=== PATIENT | female | born 1930 ===

== ENCOUNTER 2017-10-06 23:28 | Inpatient (IN) | payer OTHER ==
[2017-10-07 00:35] VITALS: BMI 20.1
[2017-10-07] MEDS ORDERED: Sodium Chloride 0.9% 1,000 ML IV STA (00:35)
[2017-10-07] MEDS ORDERED: Albuterol-Ipratrop 3 mg / 0.5 (3 ml) UD INH STA (00:44)
--- NOTE | 2017-10-07 01:07 | ED PDOC ---
HPI: CCC, URI, Sore Throat Time Seen by Provider: 10/07/17 00:07 Chief Complaint (Provider): Cough, congestion, fever History Per: Patient, Family History/Exam Limitations: no limitations Onset/Duration Of Symptoms: Days (x 3) Current Symptoms Are (Timing): Still Present Sick Contacts (Context): Family Member(s) (daughter) Additional Complaint(s): 87 year old female with a history of DM, HTN and high cholesterol presents to the ED complaining of worsening cough, congestion and fevers. Family reports she has also been weak and not walking much. Her daughter is also sick. PMD: none provided Past Medical History Reviewed: Historical Data, Nursing Documentation, Vital Signs Vital Signs: Last Vital Signs Temp 98.7 F 10/07/17 03:00 Pulse 97 H 10/07/17 00:01 Resp 19 10/07/17 00:01 BP 138/60 10/07/17 00:01 Pulse Ox 97 10/07/17 00:01 - Medical History PMH: Diabetes, HTN, Hypercholesterolemia - Surgical History Surgical History: No Surg Hx - Family History Family History: States: Unknown Family Hx - Allergies Allergies/Adverse Reactions: Allergies Allergy/AdvReac Type Severity Reaction Status Date / Time No Known Allergies Allergy Verified 10/07/17 00:35 Review of Systems ROS Statement: Except As Marked, All Systems Reviewed And Found Negative Constitutional: Positive for: Fever ENT: Positive for: Nose Congestion Respiratory: Positive for: Cough Physical Exam - Reviewed Nursing Documentation Reviewed: Yes Vital Signs Reviewed: Yes - Physical Exam Appears: Positive for: No Acute Distress (ill appearing) Head Exam: Positive for: ATRAUMATIC, NORMOCEPHALIC Skin: Positive for: Normal Color, Warm (to touch), Dry Eye Exam: Positive for: EOMI, Normal appearance, PERRL Neck: Positive for: Normal, Painless ROM, Supple Cardiovascular/Chest: Positive for: Regular Rate, Rhythm. Negative for: Murmur Respiratory: Positive for: Rhonchi (diffuse; left is worse than right) Gastrointestinal/Abdominal: Positive for: Normal Exam, Soft Back: Positive for: Normal Inspection Extremity: Positive for: Normal ROM. Negative for: Deformity Neurologic/Psych: Positive for: Alert, Oriented. Negative for: Motor/Sensory Deficits - Laboratory Results Result Diagrams: 10/07/17 01:25 10/07/17 01:25 - ECG Pulse Ox Interpretation: Normal Medical Decision Making Medical Decision Making: Time: 00:35 Impression: flu vs PNA vs sepsis Initial Plan: --VBG --EKG --CMP --Magnesium --Phosphorus --CBC with differentials --PTT --Protrombin Time --Chest x-ray --Duoneb 3 ml INH --Tylenol 975 mg PO --Blood cx --Urine cx --Influenza AB --Urinalysis Patient will be admitted to inpatient care of Dr. Ramírez due to pneumonia, influenza and sepsis. Lactic acidsosis is clearing. Scribe Attestation: Documented by Lidia Green, acting as a scribe for Keegan Jacob MD. Provider Scribe Attestation: All medical record entries made by the Scribe were at my direction and personally dictated by me. I have reviewed the chart and agree that the record accurately reflects my personal performance of the history, physical exam, medical decision making, and the department course for this patient. I have also personally directed, reviewed, and agree with the discharge instructions and disposition. Disposition - Clinical Impression Clinical Impression: Influenza, Pneumonia, Sepsis - Patient ED Disposition Is Patient to be Admitted: Yes - Disposition Disposition Time: 02:12 Condition: SERIOUS Patient Signed Over To: Gunjan Ramírez - Pt Status Changed To: Hospital Disposition Of: Inpatient - Admit Certification Admit to Inpatient:: After my assessment, the patient will require hospitalization for at least two midnights. This is because of the severity of symptoms shown, intensity of services needed, and/or the medical risk in this patient being treated as an outpatient.
[2017-10-07 01:29] LABS: BASO % 0.2 % (0.0-2.0); HEMOGLOBIN 11.8 g/dL (12.0-16.0); LYMPH # 0.9 K/uL (1.0-4.3); LYMPH % 9.3 % (20.0-40.0); MEAN CELL VOLUME 94.2 fl (81.0-99.0); MEAN CORPUSCULAR HEMOGLOBIN 30.9 pg (27.0-31.0); MEAN CORPUSCULAR HGB CONC 32.9 g/dL (33.0-37.0); MEAN PLATELET VOLUME 10.3 fl (7.2-11.7); MONO # 0.6 K/uL (0.0-0.8); MONO % 5.7 % (0.0-10.0); NEUT # 8.3 K/uL (1.8-7.0); NEUT % 84.8 % (50.0-75.0); PLATELET COUNT 146 K/uL (130-400); RBC 3.83 Mil/uL (3.80-5.20); RED CELL DISTRIBUTION WIDTH 13.2 % (11.5-14.5); WHITE BLOOD COUNT 9.8 K/uL (4.8-10.8)
[2017-10-07] MEDS ORDERED: Albuterol-Ipratrop 3 mg / 0.5 (3 ml) UD ONE (01:29)
[2017-10-07 01:32] LABS: VENOUS BLOOD GAS BASE EXCESS -1.3 mmol/L (0.0-2.0); VENOUS BLOOD GAS PCO2 43 mmHg (40-60); VENOUS BLOOD GAS PO2 21 mm/Hg (30-55); VENOUS BLOOD PH 7.36 (7.32-7.43)
[2017-10-07 01:38] LABS: PROTHROMBIN TIME 16.1 Seconds (9.8-13.1)
[2017-10-07 01:39] LABS: ALB/GLOB RATIO 0.7 (1.0-2.1); ALBUMIN 3.3 g/dL (3.5-5.0); CALCIUM 8.7 mg/dL (8.4-10.2); INR 1.4 (0.9-1.2); MAGNESIUM 1.6 MG/DL (1.6-2.3); PARTIAL THROMBOPLASTIN TIME 30.3 Seconds (25.6-37.1)
[2017-10-07] MEDS ORDERED: cefTRIAXone 2 GM in Sodium Chloride 0.9% 100 ML IVPB STA (01:49)
[2017-10-07] MEDS ORDERED: Azithromycin 500 MG in Sodium Chloride 0.9% 250 ML IVPB STA (01:50)
[2017-10-07 03:10] LABS: BANDS 5 % (0-2); LYMPHOCYTE 11 % (20-50); MONOCYTE 3 % (0-10); NEUTROPHIL 81 % (42-75); TOTAL CELLS COUNTED 100
[2017-10-07 03:12] LABS: PLATELET ESTIMATE NORMAL (NORMAL)
[2017-10-07 03:13] LABS: ANISOCYTOSIS SLIGHT; HYPOCHROMIC SLIGHT
[2017-10-07 03:53] LABS: VENOUS BLOOD GAS BASE EXCESS -3.9 mmol/L (0.0-2.0); VENOUS BLOOD GAS PCO2 30 mmHg (40-60); VENOUS BLOOD GAS PO2 92 mm/Hg (30-55); VENOUS BLOOD PH 7.42 (7.32-7.43)
[2017-10-07 04:30] LABS: SQUAMOUS EPITHIAL 1 /hpf (0-5); URINE BACTERIA MANY (<OCC); URINE BILIRUBIN NEGATIVE (NEGATIVE); URINE BLOOD MODERATE (NEGATIVE); URINE CLARITY CLOUDY (Clear); URINE COLOR AMBER (YELLOW); URINE GLUCOSE (UA) NEG (Normal); URINE LEUKOCYTE ESTERASE NEG Leu/uL (Negative); URINE NITRATE NEGATIVE (NEGATIVE); URINE PROTEIN 30 mg/dL (NEGATIVE); URINE UROBILINOGEN 0.2-1.0 mg/dL (0.2-1.0)
[2017-10-07] MEDS: Sodium Chloride 0.9% 1,000 ML IV SCH (05:01)
[2017-10-07] MEDS: Sodium Chloride 0.45% 500ml 500 ML SOL IV SCH (07:37)
--- NOTE | 2017-10-07 09:02 | CARD ---
APPROVED REPORT EKG Measurement Heart [id number] <Conclusion> Normal sinus rhythm Moderate voltage criteria for LVH, may be normal variant Borderline ECG
--- NOTE | 2017-10-07 10:07 | RAD ---
HISTORY: Sepsis Patient COMPARISON: No prior. FINDINGS: LUNGS: Left mid/lower lung infiltrate. Increased prominence of the interstitial markings bilaterally with superimposed pulmonary vascular congestion. PLEURA: No significant pleural effusion identified, no pneumothorax apparent. CARDIOVASCULAR: Atherosclerotic aortic calcifications. Cardiomediastinal silhouette within normal limits. OSSEOUS STRUCTURES: Degenerative change. VISUALIZED UPPER ABDOMEN: Right upper quadrant surgical clips. OTHER FINDINGS: None. IMPRESSION: Left mid/lower lung infiltrate.
--- NOTE | 2017-10-07 12:12 | CP.PCM.HP ---
Past Patient History - Past Social History Smoking Status: Never Smoked - CARDIAC Hx Cardiac Disorders: Yes - ENDOCRINE/METABOLIC Hx Endocrine Disorders: Yes - PSYCHIATRIC Hx Substance Use: No Meds Allergies/Adverse Reactions: Allergies Allergy/AdvReac Type Severity Reaction Status Date / Time No Known Allergies Allergy Verified 10/07/17 00:35 Results - Vital Signs Recent Vital Signs: Last Vital Signs Temp 98.0 F 10/07/17 07:36 Pulse 75 10/07/17 07:36 Resp 18 10/07/17 07:36 BP 105/55 L 10/07/17 07:36 Pulse Ox 98 10/07/17 07:36 - Labs Result Diagrams: 10/07/17 01:25 10/07/17 01:25 Labs: Laboratory Results - last 24 hr 10/07/17 10/07/17 10/07/17 01:25 01:25 01:25 WBC 9.8 RBC 3.83 Hgb 11.8 L Hct 36.0 MCV 94.2 MCH 30.9 MCHC 32.9 L RDW 13.2 Plt Count 146 MPV 10.3 Neut % (Auto) 84.8 H Lymph % (Auto) 9.3 L [place] % (Auto) 5.7 Eos % (Auto) 0.0 Baso % (Auto) 0.2 Neut # (Auto) 8.3 H Lymph # (Auto) 0.9 L [place] # (Auto) 0.6 Eos # (Auto) 0.0 Baso # (Auto) 0.0 Neutrophils % (Manual) 81 H Band Neutrophils % 5 H Lymphocytes % (Manual) 11 L Monocytes % (Manual) 3 Platelet Estimate Normal Hypochromasia (manual) Slight Anisocytosis (manual) Slight PT 16.1 H INR 1.4 H APTT 30.3 pO2 VBG pH VBG pCO2 VBG HCO3 VBG Total CO2 VBG O2 Sat (Calc) VBG Base Excess VBG Potassium Glucose Lactate FiO2 Sodium 141 Potassium 4.0 Chloride 104 Carbon Dioxide 25 Anion Gap 16 BUN 37 H Creatinine 1.3 H Est GFR ( Amer) 47 Est GFR (Non-Af Amer) 39 POC Glucose (mg/dL) Random Glucose 116 H Calcium 8.7 Phosphorus 3.2 Magnesium 1.6 Total Bilirubin 0.6 AST 132 H ALT 51 Alkaline Phosphatase 135 H Total Protein 8.0 Albumin 3.3 L Globulin 4.7 H Albumin/Globulin Ratio 0.7 L Venous Blood Potassium Urine Color Urine Clarity Urine pH Ur Specific [place] Urine Protein Urine Glucose (UA) Urine Ketones Urine Blood Urine Nitrate Urine Bilirubin Urine Urobilinogen Ur Leukocyte Esterase Urine RBC (Auto) Urine Microscopic WBC Ur Squamous Epith Cells Urine Bacteria Urine Yeast (Budding) Influenza Typ A,B (EIA) 10/07/17 10/07/17 10/07/17 01:27 01:29 03:50 WBC RBC Hgb Hct MCV MCH MCHC RDW Plt Count MPV Neut % (Auto) Lymph % (Auto) [place] % (Auto) Eos % (Auto) Baso % (Auto) Neut # (Auto) Lymph # (Auto) [place] # (Auto) Eos # (Auto) Baso # (Auto) Neutrophils % (Manual) Band Neutrophils % Lymphocytes % (Manual) Monocytes % (Manual) Platelet Estimate Hypochromasia (manual) Anisocytosis (manual) PT INR APTT pO2 21 L 92 H VBG pH 7.36 7.42 VBG pCO2 43 30 L VBG HCO3 22.1 21.9 VBG Total CO2 25.6 20.4 L VBG O2 Sat (Calc) 36.1 L 99.0 H VBG Base Excess -1.3 L -3.9 L VBG Potassium 4.2 3.1 L Glucose 113 H 103 Lactate 2.5 H 1.1 FiO2 21.0 21.0 Sodium 140.0 135.0 Potassium Chloride 105.0 107.0 Carbon Dioxide Anion Gap BUN Creatinine Est GFR ( Amer) Est GFR (Non-Af Amer) POC Glucose (mg/dL) Random Glucose Calcium Phosphorus Magnesium Total Bilirubin AST ALT Alkaline Phosphatase Total Protein Albumin Globulin Albumin/Globulin Ratio Venous Blood Potassium 4.2 3.1 L Urine Color Urine Clarity Urine pH Ur Specific [place] Urine Protein Urine Glucose (UA) Urine Ketones Urine Blood Urine Nitrate Urine Bilirubin Urine Urobilinogen Ur Leukocyte Esterase Urine RBC (Auto) Urine Microscopic WBC Ur Squamous Epith Cells Urine Bacteria Urine Yeast (Budding) Influenza Typ A,B (EIA) Pos for influenza a H 10/07/17 10/07/17 04:00 07:30 WBC RBC Hgb Hct MCV MCH MCHC RDW Plt Count MPV Neut % (Auto) Lymph % (Auto) [place] % (Auto) Eos % (Auto) Baso % (Auto) Neut # (Auto) Lymph # (Auto) [place] # (Auto) Eos # (Auto) Baso # (Auto) Neutrophils % (Manual) Band Neutrophils % Lymphocytes % (Manual) Monocytes % (Manual) Platelet Estimate Hypochromasia (manual) Anisocytosis (manual) PT INR APTT pO2 VBG pH VBG pCO2 VBG HCO3 VBG Total CO2 VBG O2 Sat (Calc) VBG Base Excess VBG Potassium Glucose Lactate FiO2 Sodium Potassium Chloride Carbon Dioxide Anion Gap BUN Creatinine Est GFR ( Amer) Est GFR (Non-Af Amer) POC Glucose (mg/dL) 101 Random Glucose Calcium Phosphorus Magnesium Total Bilirubin AST ALT Alkaline Phosphatase Total Protein Albumin Globulin Albumin/Globulin Ratio Venous Blood Potassium Urine Color Justine Urine Clarity Cloudy Urine pH 5.0 Ur Specific [place] 1.015 Urine Protein 30 Urine Glucose (UA) Neg Urine Ketones Negative Urine Blood Moderate Urine Nitrate Negative Urine Bilirubin Negative Urine Urobilinogen 0.2-1.0 Ur Leukocyte Esterase Neg Urine RBC (Auto) 7 H Urine Microscopic WBC 7 H Ur Squamous Epith Cells 1 Urine Bacteria Many H Urine Yeast (Budding) Few H Influenza Typ A,B (EIA)
[2017-10-07] MEDS: Enoxaparin 40 mg Syringe SC SCH (14:00)
[2017-10-07] MEDS: Azithromycin 500 MG in Sodium Chloride 0.9% 250 ML IVPB SCH (15:15)
[2017-10-07] MEDS: Insulin Lispro (humaLOG) 100 Units/ml Inj SC SCH (22:58)
[2017-10-08] MEDS: Sodium Chloride 0.9% 1,000 ML IV SCH (04:56)
[2017-10-08] MEDS ORDERED: Influenza Vaccine 18yr & older 0.5 ML/45 MCG SYR IM ONE (06:00)
[2017-10-08] MEDS ORDERED: Pneumococcal 23-Valent Vaccine IM ONE (06:00)
[2017-10-08] MEDS: Levothyroxine 50 MCG TAB PO SCH (06:29)
[2017-10-08] MEDS: GlipiZIDE 2.5 mg SR Tab PO SCH (06:30)
[2017-10-08] MEDS: Insulin Lispro (humaLOG) 100 Units/ml Inj SC SCH ×4 (06:30→21:29)
[2017-10-08 07:43] LABS: HEMOGLOBIN 10.8 g/dL (12.0-16.0); MEAN CELL VOLUME 94.8 fl (81.0-99.0); MEAN CORPUSCULAR HEMOGLOBIN 31.2 pg (27.0-31.0); MEAN CORPUSCULAR HGB CONC 32.9 g/dL (33.0-37.0); RBC 3.46 Mil/uL (3.80-5.20); RED CELL DISTRIBUTION WIDTH 13.8 % (11.5-14.5)
[2017-10-08 07:51] LABS: ALB/GLOB RATIO 0.6 (1.0-2.1); ALBUMIN 2.6 g/dL (3.5-5.0); ALT/SGPT 54 U/L (9-52); AST/SGOT 126 U/L (14-36); BLOOD UREA NITROGEN 36 mg/dl (7-17); GFR AFRICAN-AMERICAN > 60; GFR NON-AFRICAN AMERICAN 52
[2017-10-08] MEDS: Enoxaparin 40 mg Syringe SC SCH (08:18)
[2017-10-08] MEDS: Albuterol-Ipratrop 3 mg / 0.5 (3 ml) UD INH PRN ×2 (09:50→22:48)
[2017-10-08] MEDS: Azithromycin 500 MG in Sodium Chloride 0.9% 250 ML IVPB SCH (09:54)
[2017-10-08] MEDS: Sodium Chloride 0.45% 500ml 500 ML SOL IV SCH (16:33)
[2017-10-08] MEDS ORDERED: cefTRIAXone 1,000 MG in PED IV SYRINGE 1 SYR IVPB SCH (18:00)
--- NOTE | 2017-10-08 18:01 | CP.PCM.CON ---
Past Patient History - Past Social History Smoking Status: Never Smoked - CARDIAC Hx Cardiac Disorders: Yes - PULMONARY Hx Pneumonia: Yes - ENDOCRINE/METABOLIC Hx Endocrine Disorders: Yes - MUSCULOSKELETAL/RHEUMATOLOGICAL Hx Falls: No - PSYCHIATRIC Hx Substance Use: No Meds Allergies/Adverse Reactions: Allergies Allergy/AdvReac Type Severity Reaction Status Date / Time No Known Allergies Allergy Verified 10/07/17 00:35 - Medications Medications: Current Medications Acetaminophen (Tylenol 325mg Tab) 975 mg PO ONCE PRN PRN Reason: Fever >100.4 F Last Admin: 10/07/17 01:33 Dose: 975 mg Albuterol/Ipratropium (Duoneb 3 Mg/0.5 Mg (3 Ml) Ud) 3 ml INH RQ4 PRN PRN Reason: Shortness of Breath Last Admin: 10/08/17 09:50 Dose: 3 ml Atorvastatin Calcium (Lipitor) 20 mg PO DAILY [facility] Last Admin: 10/08/17 08:18 Dose: 20 mg Enoxaparin Sodium (Lovenox) 40 mg SC DAILY [place] PRN Reason: Protocol Last Admin: 10/08/17 08:18 Dose: 40 mg Glipizide (Glucotrol Xl) 2.5 mg PO ACB [facility] Last Admin: 10/08/17 06:30 Dose: 2.5 mg Azithromycin 500 mg/ Sodium (Chloride) 250 mls @ 250 mls/hr IVPB DAILY [place] PRN Reason: Protocol Last Admin: 10/08/17 09:54 Dose: 250 mls/hr Insulin Human Lispro (Humalog) 0 units SC ACHS [place] PRN Reason: Protocol Last Admin: 10/08/17 16:29 Dose: Not Given Levothyroxine Sodium (Synthroid) 50 mcg PO DAILY@0630 [facility] Last Admin: 10/08/17 06:29 Dose: 50 mcg Oseltamivir Phosphate (Tamiflu Cap) 75 mg PO BID [place] PRN Reason: Protocol Stop: 10/11/17 09:00 Last Admin: 10/08/17 16:26 Dose: 75 mg Sodium Chloride (Sodium Chloride 0.45%) 80 ml IV DAILY [facility] Last Admin: 10/08/17 16:33 Dose: 80 ml Results - Vital Signs Recent Vital Signs: Last Vital Signs Temp 99.6 F 10/08/17 16:00 Pulse 80 10/08/17 16:00 Resp 17 10/08/17 16:00 BP 117/78 10/08/17 16:00 Pulse Ox 100 10/08/17 16:00 - Labs Result Diagrams: 10/08/17 07:20 10/08/17 07:20 Labs: Laboratory Results - last 24 hr 10/07/17 10/08/17 10/08/17 21:53 04:45 07:20 WBC 9.0 RBC 3.46 L Hgb 10.8 L Hct 32.9 L MCV 94.8 MCH 31.2 H MCHC 32.9 L RDW 13.8 Plt Count 101 L D Sodium Potassium Chloride Carbon Dioxide Anion Gap BUN Creatinine Est GFR ( Amer) Est GFR (Non-Af Amer) POC Glucose (mg/dL) 152 H 82 Random Glucose Calcium Total Bilirubin AST ALT Alkaline Phosphatase Total Protein Albumin Globulin Albumin/Globulin Ratio 10/08/17 10/08/17 10/08/17 07:20 11:09 16:29 WBC RBC Hgb Hct MCV MCH MCHC RDW Plt Count Sodium 136 Potassium 3.7 Chloride 106 Carbon Dioxide 20 L Anion Gap 14 BUN 36 H Creatinine 1.0 Est GFR ( Amer) > 60 Est GFR (Non-Af Amer) 52 POC Glucose (mg/dL) 104 74 Random Glucose 90 Calcium 8.0 L Total Bilirubin 0.5 AST 126 H ALT 54 H Alkaline Phosphatase 87 Total Protein 6.6 Albumin 2.6 L D Globulin 4.0 H Albumin/Globulin Ratio 0.6 L
--- NOTE | 2017-10-08 23:54 | CP.PCM.PN ---
Subjective - Date & Time of Evaluation Date of Evaluation: 10/08/17 Time of Evaluation: 15:00 Objective - Vital Signs/Intake and Output Vital Signs (last 24 hours): Temp Pulse Resp BP Pulse Ox 98.7 F 93 H 23 141/61 97 10/08/17 21:00 10/08/17 21:00 10/08/17 21:00 10/08/17 21:00 10/08/17 21:00 Intake and Output: 10/08/17 10/09/17 18:59 06:59 Intake Total 1396 290 Output Total 120 Balance 1276 290 - Medications Medications: Current Medications Acetaminophen (Tylenol 325mg Tab) 975 mg PO ONCE PRN PRN Reason: Fever >100.4 F Last Admin: 10/07/17 01:33 Dose: 975 mg Albuterol/Ipratropium (Duoneb 3 Mg/0.5 Mg (3 Ml) Ud) 3 ml INH RQ4 PRN PRN Reason: Shortness of Breath Last Admin: 10/08/17 22:48 Dose: 3 ml Atorvastatin Calcium (Lipitor) 20 mg PO DAILY [facility] Last Admin: 10/08/17 08:18 Dose: 20 mg Enoxaparin Sodium (Lovenox) 40 mg SC DAILY [facility] PRN Reason: Protocol Last Admin: 10/08/17 08:18 Dose: 40 mg Glipizide (Glucotrol Xl) 2.5 mg PO ACB [facility] Last Admin: 10/08/17 06:30 Dose: 2.5 mg Azithromycin 500 mg/ Sodium (Chloride) 250 mls @ 250 mls/hr IVPB DAILY [facility] PRN Reason: Protocol Last Admin: 10/08/17 09:54 Dose: 250 mls/hr Ceftriaxone Sodium 1 gm/ (Sodium Chloride) 50 mls @ 100 mls/hr IVPB Q12@0800, 2000 [facility] Last Admin: 10/08/17 20:37 Dose: 100 mls/hr Insulin Human Lispro (Humalog) 0 units SC ACHS [facility] PRN Reason: Protocol Last Admin: 10/08/17 21:29 Dose: Not Given Levothyroxine Sodium (Synthroid) 50 mcg PO DAILY@0630 [facility] Last Admin: 10/08/17 06:29 Dose: 50 mcg Oseltamivir Phosphate (Tamiflu Cap) 75 mg PO BID [facility] PRN Reason: Protocol Stop: 10/11/17 09:00 Last Admin: 10/08/17 16:26 Dose: 75 mg Sodium Chloride (Sodium Chloride 0.45%) 80 ml IV DAILY [place] Last Admin: 10/08/17 16:33 Dose: 80 ml - Labs Labs: 10/08/17 07:20 10/08/17 07:20 PT 16.1 Seconds (9.8-13.1) H 10/07/17 01:25 INR 1.4 (0.9-1.2) H 10/07/17 01:25 APTT 30.3 Seconds (25.6-37.1) 10/07/17 01:25
[2017-10-09] MEDS ORDERED: Sodium Chloride 0.45% 1,000 ML IV ONE (00:30)
[2017-10-09] MEDS: Levothyroxine 50 MCG TAB PO SCH (05:36)
[2017-10-09] MEDS: Insulin Lispro (humaLOG) 100 Units/ml Inj SC SCH ×4 (06:33→22:30)
[2017-10-09] MEDS: GlipiZIDE 2.5 mg SR Tab PO SCH (09:25)
[2017-10-09] MEDS: Enoxaparin 40 mg Syringe SC SCH (09:25)
[2017-10-09] MEDS: Azithromycin 500 MG in Sodium Chloride 0.9% 250 ML IVPB SCH (09:28)
[2017-10-09] MEDS: Albuterol-Ipratrop 3 mg / 0.5 (3 ml) UD INH PRN (09:56)
[2017-10-09] MEDS ORDERED: Albuterol-Ipratrop 3 mg / 0.5 (3 ml) UD INH SCH (12:08)
[2017-10-09] MEDS ORDERED: Dextrose 5%/0.45% NS 1,000 ML IV SCH (12:15)
--- NOTE | 2017-10-09 13:19 | RAD ---
HISTORY: f/u PNA, congestion COMPARISON: Chest radiograph dated 10/07/2017. FINDINGS: LUNGS: Worsening right upper lobe and left mid/lower lung consolidative process. Superimposed pulmonary vascular congestion. PLEURA: No significant pleural effusion identified, no pneumothorax apparent. CARDIOVASCULAR: Atherosclerotic aortic calcifications. Cardiomediastinal silhouette within normal limits. OSSEOUS STRUCTURES: Unchanged. VISUALIZED UPPER ABDOMEN: Normal. OTHER FINDINGS: None. IMPRESSION: Worsening right upper lobe and left mid/lower lung consolidative processes. Superimposed pulmonary vascular congestion.
[2017-10-09] MEDS ORDERED: Sodium Chloride 3% for Inhalation 4 ML VIAL.NEB IH PRN (16:11)
[2017-10-09] MEDS: Albuterol-Ipratrop 3 mg / 0.5 (3 ml) UD INH SCH (19:24)
[2017-10-09] MEDS ORDERED: cefTRIAXone IV 1 gm in Dextros 50 ML IVPB SCH (20:00)
[2017-10-09] MEDS: Cefepime 2 GM in Sodium Chloride 0.9% 100 ML IVPB SCH (20:12)
[2017-10-10] MEDS: Albuterol-Ipratrop 3 mg / 0.5 (3 ml) UD INH SCH ×4 (01:14→19:56)
[2017-10-10] MEDS: Levothyroxine 50 MCG TAB PO SCH (06:53)
[2017-10-10] MEDS: Insulin Lispro (humaLOG) 100 Units/ml Inj SC SCH ×4 (06:56→21:21)
[2017-10-10 09:25] LABS: HEMOGLOBIN 9.5 g/dL (12.0-16.0); MEAN CELL VOLUME 94.2 fl (81.0-99.0); MEAN CORPUSCULAR HEMOGLOBIN 30.5 pg (27.0-31.0); MEAN CORPUSCULAR HGB CONC 32.3 g/dL (33.0-37.0); RBC 3.13 Mil/uL (3.80-5.20); RED CELL DISTRIBUTION WIDTH 13.3 % (11.5-14.5); WHITE BLOOD COUNT 12.2 K/uL (4.8-10.8)
[2017-10-10 10:18] LABS: ALB/GLOB RATIO 0.6 (1.0-2.1); ALBUMIN 2.5 g/dL (3.5-5.0); ALT/SGPT 97 U/L (9-52); AST/SGOT 193 U/L (14-36); BLOOD UREA NITROGEN 21 mg/dl (7-17); CALCIUM 8.1 mg/dL (8.4-10.2); GFR AFRICAN-AMERICAN > 60; GFR NON-AFRICAN AMERICAN 59
[2017-10-10] MEDS: Azithromycin 500 MG in Sodium Chloride 0.9% 250 ML IVPB SCH (10:36)
[2017-10-10] MEDS: GlipiZIDE 2.5 mg SR Tab PO SCH (10:36)
[2017-10-10] MEDS: Cefepime 2 GM in Sodium Chloride 0.9% 100 ML IVPB SCH (10:37)
[2017-10-10] MEDS: Enoxaparin 40 mg Syringe SC SCH (10:38)
[2017-10-10] MEDS ORDERED: Potassium Chloride 20 mEq/15 ml LIQ UD PO STA (12:04)
--- NOTE | 2017-10-10 13:56 | CP.PCM.CON ---
History of Present Illness - History of Present Illness History of Present Illness: 87 year old female with a history of DM, HTN and high cholesterol presents to the ED complaining of worsening cough, congestion and fevers. Family reports she has also been weak and not walking much. Her daughter is also sick. found to have worsening pneumonia, UTI and Influenza a IV antibiotics in progress - Medical History PMH: Diabetes, HTN, Hypercholesterolemia - Surgical History Surgical History: No Surg Hx - Family History Family History: States: Unknown Family Hx Review of Systems - Review of Systems All systems: reviewed and no additional remarkable complaints except - Constitutional Constitutional: As Per HPI, Anorexia, Chills, Fever - EENT Eyes: absent: As Per HPI, Blind Spots, Blurred Vision, Change in Vision, Decreased Night Vision, Diplopia, Discharge, Dry Eye, Exophthalmos, Floaters, Irritation, Itchy Eyes, Loss of Peripheral Vision, Pain, Photophobia, Requires Corrective Lenses, Sees Flashes, Spots in Vision, Tunnel Vision, Other Visual Disturbances, Loss of Vision, Other Ears: absent: As Per HPI, Decreased Hearing, Ear Discharge, Ear Pain, Tinnitus, Abnormal Hearing, Disequilibrium, Dizziness, Other Nose/Mouth/Throat: absent: As Per HPI, Epistaxis, Nasal Congestion, Nasal Discharge, Nasal Obstruction, Nasal Trauma, Nose Pain, Post Nasal Drip, Sinus Pain, Sinus Pressure, Bleeding Gums, Change in Voice, Dental Pain, Dry Mouth, Dysphagia, Halitosis, Hoarsness, Lip Swelling, Mouth Lesions, Mouth Pain, Odynophagia, Sore Throat, Throat Swelling, Tongue Swelling, Facial Pain, Neck Pain, Neck Mass, Other - Breasts Breasts: absent: As Per HPI, Change in Shape, Mass, Pain, Nipple Discharge, Nipple Inversion, Skin Changes, Swelling, Other - Cardiovascular Cardiovascular: As Per HPI - Respiratory Respiratory: As Per HPI, Cough, Dyspnea. absent: Hemoptysis - Gastrointestinal Gastrointestinal: absent: As Per HPI, Abdominal Pain, Belching, Bloating, Change in Bowel Habits, Change in Stool Character, Coffee Ground Emesis, Constipation, Cramping, Diarrhea, Dyspepsia, Dysphagia, Early Satiety, Excessive Flatus, Fecal Incontinence, Heartburn, Hematemesis, Hematochezia, Loose Stools, Melena, Nausea, Odynophagia, Temesmus, Vomiting, Other - Genitourinary Genitourinary: absent: As Per HPI, Change in Urinary Stream, Difficulty Urinating, Dysuria, Flank Pain, Hematuria, Pyuria, Nocturia, Urinary Incontinence, Urinary Frequency, Urinary Hesitance, Urinary Urgency, Voiding Freq/Small Amts, Freq UTI, Hx Renal/Bladder Calculi, Hx /Renal Surgery, Bladder Distension, Other - Reproductive: Female Reproductive:Female: absent: As Per HPI, Amenorrhea, Amenorrhea/ Control, Currently Menstual, Cycle <21 Days, Cycle >35 Days, Cycle Variable, Menses 1-7 Days, Menses >/= 8 Days, Menses Variable, Cycle > 4 Weeks Between, No Menses for 6 Months, Heavy Menses, Light Menses, Normal Menses, Spotting Between Cycles , S/P Hysterectomy, Menopausal, Post Menopausal, Premenarche, Abnormal Vaginal Bleeding, Dysmenorrhea, Dyspareunia, Genital Lesions, Genital Pruritis, Pelvic Pain, Prolapse Symptoms, Sexual Dysfunction, Vaginal Discharge, Vaginal Dryness , Vaginal Odor, Vaginal Pruritis, Other - Menstruation Menstruation: absent: As Per HPI, Amenorrhea, Amenorrhea/ Control, Currently Menstual, Cycle <21 Days, Cycle >35 Days, Cycle Variable, Menses 1-7 Days, Menses >/= 8 Days, Menses Variable, Cycle > 4 Weeks Between, No Menses for 6 Months, Heavy Menses, Light Menses, Normal Menses, Spotting Between Cycles , S/P Hysterectomy, Menopausal, Post Menopausal, Premenarche, Abnormal Vaginal Bleeding, Dysmenorrhea, Other - Musculoskeletal Musculoskeletal: As Per HPI - Integumentary Integumentary: absent: As Per HPI, Acne, Alopecia, Bleeding Lesions, Change in Hair, Change in Nails, Change in Pigmentation, Changing Lesions, Dry Skin, Erythema, Furuncle, Hirsutism, Lesions, New Lesions, Non-Healing Lesions, Photosensitivity, Pruritus, Rash, Skin Pain, Skin Ulcer, Sores, Striae, Swelling , Unusual Bruising, Wounds, Jaundice, Other - Neurological Neurological: absent: As Per HPI, Abnormal Gait, Abnormal Hearing, Abnormal Movements, Abnormal Speech, Behavioral Changes, Burning Sensations, Confusion, Convulsions, Disequilibrium, Dizziness, Numbness, Focal Weakness, Frequent Falls , Headaches, Lack of Coordination, Loss of Vision, Memory Loss, Paresthesias, Radicular Pain, Restless Legs, Sensory Deficit, Syncope, Tingling, Tremor, Vertigo, Weakness, Other Visual Disturbances, Other - Psychiatric Psychiatric: absent: As Per HPI, Abnormal Sleep Pattern, Anhedonia, Anxiety, Auditory Hallucinations, Behavioral Changes, Change in Appetite, Change in Libido, Confusion, Depression, Difficulty Concentrating, Hallucinations, Homicidal Ideation, Hopelessness, Irritability, Memory Loss, Mood Swings, Panic Attacks, Paranoia, Suicidal Ideation, Visual Hallucinations, Tactile Hallucinations, Other - Endocrine Endocrine: absent: As Per HPI, Change in Body Appearance, Change in Libido, Cold Intolorance, Deepening of Voice, Excessive Sweating, Fatigue, Flushing, Heat Intolorance, Increase in Ring/Shoe/Hat Size, Palpitations, Polydipsia, Polyphagia, Polyuria, Other - Hematologic/Lymphatic Hematologic: absent: As Per HPI, Easy Bleeding, Easy Bruising, Lymphadenopathy, Other Past Patient History - Past Social History Smoking Status: Never Smoked - CARDIAC Hx Cardiac Disorders: Yes - PULMONARY Hx Pneumonia: Yes - ENDOCRINE/METABOLIC Hx Endocrine Disorders: Yes - MUSCULOSKELETAL/RHEUMATOLOGICAL Hx Falls: No - PSYCHIATRIC Hx Substance Use: No Meds Allergies/Adverse Reactions: Allergies Allergy/AdvReac Type Severity Reaction Status Date / Time No Known Allergies Allergy Verified 10/07/17 00:35 - Medications Medications: Current Medications Acetaminophen (Tylenol 325mg Tab) 975 mg PO ONCE PRN PRN Reason: Fever >100.4 F Last Admin: 10/07/17 01:33 Dose: 975 mg Albuterol/Ipratropium (Duoneb 3 Mg/0.5 Mg (3 Ml) Ud) 3 ml INH RQ6 [facility] Last Admin: 10/10/17 07:20 Dose: 3 ml Amlodipine Besylate (Norvasc) 5 mg PO DAILY [facility] Atorvastatin Calcium (Lipitor) 20 mg PO DAILY [facility] Last Admin: 10/10/17 10:38 Dose: 20 mg Glipizide (Glucotrol Xl) 2.5 mg PO ACB [facility] Last Admin: 10/10/17 10:36 Dose: 2.5 mg Azithromycin 500 mg/ Sodium (Chloride) 250 mls @ 250 mls/hr IVPB DAILY [facility] PRN Reason: Protocol Last Admin: 10/10/17 10:36 Dose: 250 mls/hr Dextrose (Dextrose 10% In Water) 1,000 mls @ 20 mls/hr IV .Q24H [facility] Stop: 10/10/17 15:25 Last Admin: 10/09/17 16:18 Dose: 20 mls/hr Cefepime HCl 2 gm/ Sodium (Chloride) 100 mls @ 100 mls/hr IVPB Q12 [facility] PRN Reason: Protocol Last Admin: 10/10/17 10:37 Dose: 100 mls/hr Insulin Human Lispro (Humalog) 0 units SC ACHS [place] PRN Reason: Protocol Last Admin: 10/10/17 12:31 Dose: 1 unit Levothyroxine Sodium (Synthroid) 50 mcg PO DAILY@0630 [facility] Last Admin: 10/10/17 06:53 Dose: 50 mcg Oseltamivir Phosphate (Tamiflu Cap) 75 mg PO BID [facility] PRN Reason: Protocol Stop: 10/11/17 09:00 Last Admin: 10/10/17 10:36 Dose: 75 mg Physical Exam - Constitutional Appears: Non-toxic, Chronically Ill - Head Exam Head Exam: NORMOCEPHALIC - Eye Exam Eye Exam: PERRL. absent: Scleral icterus - ENT Exam ENT Exam: Mucous Membranes Dry, Normal External Ear Exam - Neck Exam Neck exam: Negative for: Lymphadenopathy - Respiratory Exam Respiratory Exam: Decreased Breath Sounds, Rhonchi - Cardiovascular Exam Cardiovascular Exam: REGULAR RHYTHM, +S1, +S2 - GI/Abdominal Exam GI & Abdominal Exam: Diminished Bowel Sounds, Soft. absent: Tenderness - Rectal Exam Rectal Exam: Deferred - Exam Exam: NORMAL INSPECTION - Extremities Exam Extremities exam: Negative for: pedal edema - Back Exam Back exam: absent: CVA tenderness (L), CVA tenderness (R), paraspinal tenderness - Neurological Exam Neurological exam: Alert, CN II-XII Intact, Oriented x3, Reflexes Normal - Psychiatric Exam Psychiatric exam: Depressed - Skin Skin Exam: Dry, Intact Results - Vital Signs Recent Vital Signs: Last Vital Signs Temp 98.9 F 10/10/17 12:00 Pulse 102 H 10/10/17 12:00 Resp 39 H 10/10/17 12:00 BP 178/59 H 10/10/17 12:00 Pulse Ox 91 L 10/10/17 12:00 - Labs Result Diagrams: 10/10/17 08:40 10/10/17 08:40 Labs: Laboratory Results - last 24 hr 10/09/17 10/09/17 10/09/17 11:18 15:55 21:52 WBC RBC Hgb Hct MCV MCH MCHC RDW Plt Count Sodium Potassium Chloride Carbon Dioxide Anion Gap BUN Creatinine Est GFR ( Amer) Est GFR (Non-Af Amer) POC Glucose (mg/dL) 173 H 161 H 163 H Random Glucose Calcium Total Bilirubin AST ALT Alkaline Phosphatase Total Protein Albumin Globulin Albumin/Globulin Ratio 10/10/17 10/10/17 10/10/17 05:56 08:40 08:40 WBC 12.2 H RBC 3.13 L Hgb 9.5 L Hct 29.5 L MCV 94.2 MCH 30.5 MCHC 32.3 L RDW 13.3 Plt Count 121 L D Sodium 138 Potassium 3.5 L Chloride 105 Carbon Dioxide 25 Anion Gap 12 BUN 21 H Creatinine 0.9 Est GFR ( Amer) > 60 Est GFR (Non-Af Amer) 59 POC Glucose (mg/dL) 133 H Random Glucose 147 H Calcium 8.1 L Total Bilirubin 0.9 AST 193 H D ALT 97 H D Alkaline Phosphatase 141 H D Total Protein 6.4 Albumin 2.5 L Globulin 3.9 Albumin/Globulin Ratio 0.6 L 10/10/17 11:36 WBC RBC Hgb Hct MCV MCH MCHC RDW Plt Count Sodium Potassium Chloride Carbon Dioxide Anion Gap BUN Creatinine Est GFR ( Amer) Est GFR (Non-Af Amer) POC Glucose (mg/dL) 176 H Random Glucose Calcium Total Bilirubin AST ALT Alkaline Phosphatase Total Protein Albumin Globulin Albumin/Globulin Ratio Assessment & Plan (1) Influenza Status: Acute (2) Pneumonia Status: Acute (3) Sepsis Status: Acute (4) UTI (urinary tract infection) Status: Acute - Assessment and Plan (Free Text) Assessment: cont iv antibiotics supportive care
[2017-10-10] MEDS: Cefepime 1 GM in Sodium Chloride 0.9% 100 ML IVPB SCH (17:03)
[2017-10-10] MEDS ORDERED: Enalaprilat 2.5 MG/2 ML IVP ONE (23:31)
[2017-10-11] MEDS: Cefepime 1 GM in Sodium Chloride 0.9% 100 ML IVPB SCH ×3 (00:08→17:25)
[2017-10-11] MEDS: Albuterol-Ipratrop 3 mg / 0.5 (3 ml) UD INH SCH (01:17)
[2017-10-11 02:10] LABS: BASO % 0.1 % (0.0-2.0); EOS % 0.1 % (0.0-4.0); HEMOGLOBIN 9.9 g/dL (12.0-16.0); LYMPH # 0.7 K/uL (1.0-4.3); LYMPH % 4.8 % (20.0-40.0); MEAN CELL VOLUME 93.5 fl (81.0-99.0); MEAN CORPUSCULAR HEMOGLOBIN 30.3 pg (27.0-31.0); MEAN CORPUSCULAR HGB CONC 32.4 g/dL (33.0-37.0); MEAN PLATELET VOLUME 9.2 fl (7.2-11.7); MONO # 1.7 K/uL (0.0-0.8); NEUT # 11.7 K/uL (1.8-7.0); NRBC % 1.2 % (0.0-0.0); PLATELET COUNT 145 K/uL (130-400); RBC 3.29 Mil/uL (3.80-5.20); RED CELL DISTRIBUTION WIDTH 13.6 % (11.5-14.5); WHITE BLOOD COUNT 14.1 K/uL (4.8-10.8)
[2017-10-11 02:21] LABS: ALB/GLOB RATIO 0.6 (1.0-2.1); ALBUMIN 2.5 g/dL (3.5-5.0); ALT/SGPT 81 U/L (9-52); AST/SGOT 129 U/L (14-36); BLOOD UREA NITROGEN 17 mg/dl (7-17); CALCIUM 8.1 mg/dL (8.4-10.2); GFR AFRICAN-AMERICAN > 60; GFR NON-AFRICAN AMERICAN > 60
[2017-10-11 02:41] LABS: B-TYPE NATRIURETIC PEPTIDE 10900 pg/ml (0-900)
[2017-10-11] MEDS: Levalbuterol 0.63 MG/3 ML Inhal Soln UD INH SCH ×4 (04:42→23:58)
[2017-10-11] MEDS: Ipratropium 0.02% Inhal Soln (0.5 mg/2.5 ml) UD IH SCH ×6 (04:42→23:57)
[2017-10-11 04:49] LABS: LYMPHOCYTE 7 % (20-50); NEUTROPHIL 83 % (42-75); TOTAL CELLS COUNTED 100
[2017-10-11 04:50] LABS: MONOCYTE 10 % (0-10); PLATELET ESTIMATE NORMAL (NORMAL)
[2017-10-11] MEDS: Levothyroxine 50 MCG TAB PO SCH (06:25)
[2017-10-11] MEDS: Insulin Lispro (humaLOG) 100 Units/ml Inj SC SCH ×4 (06:30→22:45)
[2017-10-11] MEDS: Azithromycin 500 MG in Sodium Chloride 0.9% 250 ML IVPB SCH (08:55)
--- NOTE | 2017-10-11 10:37 | CP.PCM.PN ---
Subjective - Date & Time of Evaluation Date of Evaluation: 10/11/17 Time of Evaluation: 07:00 - Subjective Subjective: aeen on rounds full consult to follow Objective - Vital Signs/Intake and Output Vital Signs (last 24 hours): Temp Pulse Resp BP Pulse Ox 97.4 F L 91 H 20 165/69 H 95 10/11/17 08:00 10/11/17 08:00 10/11/17 08:00 10/11/17 08:00 10/11/17 08:00 - Medications Medications: Current Medications Acetaminophen (Tylenol 325mg Tab) 975 mg PO ONCE PRN PRN Reason: Fever >100.4 F Last Admin: 10/07/17 01:33 Dose: 975 mg Aspirin (Aspirin) 325 mg PO DAILY [facility] Last Admin: 10/11/17 03:09 Dose: 325 mg Atorvastatin Calcium (Lipitor) 20 mg PO DAILY [facility] Last Admin: 10/11/17 08:54 Dose: 20 mg Glipizide (Glucotrol Xl) 2.5 mg PO ACB [facility] Last Admin: 10/10/17 10:36 Dose: 2.5 mg Azithromycin 500 mg/ Sodium (Chloride) 250 mls @ 250 mls/hr IVPB DAILY [facility] PRN Reason: Protocol Last Admin: 10/11/17 08:55 Dose: 250 mls/hr Cefepime HCl 1 gm/ Sodium (Chloride) 100 mls @ 100 mls/hr IVPB Q8 [facility] PRN Reason: Protocol Last Admin: 10/11/17 08:54 Dose: 100 mls/hr Dextrose (Dextrose 10% In Water) 1,000 mls @ 20 mls/hr IV .Q24H [facility] Stop: 10/11/17 15:45 Last Admin: 10/10/17 07:00 Dose: 20 mls/hr Insulin Human Lispro (Humalog) 0 units SC ACHS [place] PRN Reason: Protocol Last Admin: 10/11/17 06:30 Dose: 1 unit Ipratropium [place] (Atrovent) 0.5 mg IH RQ4 [facility] Last Admin: 10/11/17 07:43 Dose: 0.5 mg Levalbuterol HCl (Xopenex) 0.63 mg INH RQ8 [facility] Last Admin: 10/11/17 07:43 Dose: 0.63 mg Levothyroxine Sodium (Synthroid) 50 mcg PO DAILY@0630 [facility] Last Admin: 10/11/17 06:25 Dose: 50 mcg Metoprolol Tartrate (Lopressor) 25 mg PO Q12 [facility] Last Admin: 10/11/17 03:09 Dose: 25 mg - Labs Labs: 10/11/17 02:05 10/11/17 02:05 PT 16.1 Seconds (9.8-13.1) H 10/07/17 01:25 INR 1.4 (0.9-1.2) H 10/07/17 01:25 APTT 30.3 Seconds (25.6-37.1) 10/07/17 01:25 - Constitutional Appears: Cachectic, Chronically Ill - Head Exam Head Exam: ATRAUMATIC, NORMAL INSPECTION, NORMOCEPHALIC - Eye Exam Eye Exam: EOMI, Normal appearance, PERRL Pupil Exam: NORMAL ACCOMODATION, PERRL - ENT Exam ENT Exam: Mucous Membranes Moist, Normal Exam - Neck Exam Neck Exam: Full ROM, Normal Inspection. absent: Lymphadenopathy - Respiratory Exam Respiratory Exam: Rhonchi - Cardiovascular Exam Cardiovascular Exam: REGULAR RHYTHM, +S1, +S2. absent: Murmur - GI/Abdominal Exam GI & Abdominal Exam: Soft, Normal Bowel Sounds. absent: Tenderness - Rectal Exam Rectal Exam: NORMAL INSPECTION - Exam Exam: Circumcision, NORMAL INSPECTION External exam: NORMAL EXTERNAL EXAM Speculum exam: NORMAL SPECULUM EXAM Bimanual exam: NORMAL BIMANUAL EXAM - Extremities Exam Extremities Exam: Full ROM, Normal Capillary Refill, Normal Inspection. absent : Joint Swelling, Pedal Edema - Back Exam Back Exam: NORMAL INSPECTION - Neurological Exam Neurological Exam: Alert, Awake, CN II-XII Intact, Normal Gait, Oriented x3 - Psychiatric Exam Psychiatric exam: Normal Affect, Normal Mood - Skin Skin Exam: Dry, Intact, Normal Color, Warm Assessment and Plan (1) Influenza Status: Acute (2) Pneumonia Status: Acute (3) Sepsis Status: Acute (4) UTI (urinary tract infection) Status: Acute
[2017-10-11] MEDS: GlipiZIDE 2.5 mg SR Tab PO SCH (11:29)
[2017-10-11] MEDS ORDERED: Enoxaparin 30 mg Syringe SC SCH (11:30)
--- NOTE | 2017-10-11 12:19 | CARD ---
APPROVED REPORT EKG Measurement Heart [id number] <Conclusion> Normal sinus rhythm Normal ECG
--- NOTE | 2017-10-11 12:29 | CON ---
DATE: CARDIOLOGY CONSULTATION HISTORY OF PRESENT ILLNESS: The patient is an 87-year-old female who has a history of hypertension, diabetes mellitus and hyperlipidemia, presented because of shortness of breath, productive cough and fever. Cardiac enzymes were borderline and elevated. The patient's x-ray was consistent with significant bilateral alveolar pneumonia. SOCIAL HISTORY: Nonsmoker. MEDICATIONS: IV Zithromax at 500 mg daily, IV cefepime at 1 gram q.8 hours, glipizide 2.5 mg daily, Lipitor 20 mg once daily, Lopressor 25 mg twice a day, Synthroid 50 mcg daily, and Xopenex inhaler q.8 hours. REVIEW OF SYSTEMS: No reported hypotension. No reported ventricular tachycardia. PAST MEDICAL HISTORY: History of hypertension, diabetes mellitus, and hyperlipidemia. PHYSICAL EXAMINATION: GENERAL: The patient is an elderly female who is currently tachypneic. VITAL SIGNS: Blood pressure of 165/69, heart rate of 91, temperature of 97.4, and respirations of 20. HEENT: Pale conjunctivae. CHEST: Bilateral coarse crepitations and expiratory wheezing. HEART: S1 and S2, regular. ABDOMEN: Soft. EXTREMITIES: No edema. LABORATORY DATA: Hemoglobin and hematocrit of 9.9 and 38.7. white count of 14.1 and platelet count of 145,000. SMA-7: Sodium of 138, , chloride of 109, CO2 of 23, glucose of 163, BUN of 17 and creatinine of 0.8. Troponin of 0.122 and 0.133. DIAGNOSTIC DATA: EKG revealed normal sinus rhythm. Chest x-ray revealed normal cardiac silhouette, bilateral alveolar infiltrate involving both lung aguirre with near complete opacification with right upper lobe. ASSESSMENT: 1. Bilateral pneumonia. 2. Borderline troponin elevation. 3. Mild anemia. 4. Positive serology for influenza. RECOMMENDATIONS: Continue current IV Zithromax and IV Rocephin. Continue aspirin 325 mg once a day, Lopressor 25 mg once a day, Lipitor 20 mg once a day, Synthroid 50 mcg once daily, and subcutaneous Lovenox 30 mg daily. Obtain chest CT scan without contrast. The patient is not suitable candidate for invasive cardiac workup until for resolution of overwhelming pneumonia. Mitchell Hollis MD [facility] # [id number]
--- NOTE | 2017-10-11 14:07 | RAD ---
PROCEDURE: CHEST RADIOGRAPH, 1 VIEW HISTORY: Pneumonia COMPARISON: 11/06/2017. FINDINGS: LUNGS: Persistent multifocal infiltrates primarily affecting right upper lobe, left lower lobe and to lesser extent right lower lobe. PLEURA: No pneumothorax or pleural fluid seen. CARDIOVASCULAR: Normal. OSSEOUS STRUCTURES: No significant abnormalities. VISUALIZED UPPER ABDOMEN: Normal. OTHER FINDINGS: None. IMPRESSION: Stable multifocal pulmonary infiltrates.
[2017-10-11] MEDS ORDERED: Linezolid 600 mg in D5W 300 ml 600 MG/300 ML BAG IVPB SCH (15:05)
[2017-10-11 15:23] LABS: ABG ALLEN TEST YES; ARTERIAL BLOOD GAS HCO3 23.6 mmol/L (21-28); ARTERIAL BLOOD GAS HEMOGLOBIN 10.3 g/dL (11.7-17.4); ARTERIAL BLOOD GAS O2 CAPACITY 14.3 mL/dL (16-24); ARTERIAL BLOOD GAS O2 CONTENT 13.3 ML/dL (15-23); ARTERIAL BLOOD GAS O2 SAT 92.9 % (95-98); ARTERIAL BLOOD GAS PCO2 45 mm/Hg (35-45); ARTERIAL BLOOD GAS PH 7.34 (7.35-7.45); ARTERIAL BLOOD GAS PO2 62 mm/Hg (80-100); ARTERIAL BLOOD GAS TCO2 25.7 mmol/L (22-28)
--- NOTE | 2017-10-11 15:33 | CP.PCM.CON ---
History of Present Illness - History of Present Illness History of Present Illness: Pulmonary consult for a 87 y/o F, brought to [facility], [place] after been sustaining dry intermittent cough associated to chest congestion, fever x 2 days [employer] with no relief. Worsening symptoms: JARQUIN, TMAx 102.2 while in the ER, poor appetite, weakness. Also possible sick contact from daughter with Flu like symptoms. Aggravated factor: Poor historian 2nd to clinical condition. No: CP, v/v/d, abdominal pain, LOC, syncope, numbness, bloody cough. CXR: Worsening RUL and L middle lobe consolidative process. EKG: Normal sinus rhythm. CT Chest showed: Extensive b/l alveolar PNA. Influenza A (+) Patient completed Tamiflu Rx Review of Systems - Constitutional Constitutional: Frequent Falls, Weakness, Other (decreased appetite) - EENT Eyes: Other (negative) Nose/Mouth/Throat: Other (negative) - Cardiovascular Cardiovascular: Rapid Heart Rate - Respiratory Respiratory: Cough, Dyspnea, Wheezing, Chest Congestion - Gastrointestinal Gastrointestinal: Other (negative) - Musculoskeletal Musculoskeletal: Arthralgias - Integumentary Integumentary: Other (negative) - Neurological Neurological: Confusion, Other (negative) - Psychiatric Psychiatric: Anxiety - Endocrine Endocrine: Other (negative) - Hematologic/Lymphatic Hematologic: Other (negative) Past Patient History - Past Medical History & Family History Pertinent Family History: Unknown - Past Social History Smoking Status: Never Smoked Alcohol: None Drugs: Denies Home Situation {Lives}: With Family - CARDIAC Hx Cardiac Disorders: Yes Hx Hypercholesterolemia: Yes Hx Hypertension: Yes - PULMONARY Hx Respiratory Disorders: Yes Hx Pneumonia: Yes - NEUROLOGICAL Hx Neurological Disorder: No - HEENT Hx HEENT Problems: No - RENAL Hx Chronic Kidney Disease: No - ENDOCRINE/METABOLIC Hx Endocrine Disorders: Yes Hx Diabetes Mellitus Type 2: Yes Hx Hypothyroidism: Yes - HEMATOLOGICAL/ONCOLOGICAL Hx Blood Disorders: No - INTEGUMENTARY Hx Dermatological Problems: No - MUSCULOSKELETAL/RHEUMATOLOGICAL Hx Musculoskeletal Disorders: Yes Hx Falls: Yes - GASTROINTESTINAL Hx Gastrointestinal Disorders: No - GENITOURINARY/GYNECOLOGICAL Hx Genitourinary Disorders: No - PSYCHIATRIC Hx Psychophysiologic Disorder: Yes Hx Anxiety: Yes Hx Substance Use: No Meds Allergies/Adverse Reactions: Allergies Allergy/AdvReac Type Severity Reaction Status Date / Time No Known Allergies Allergy Verified 10/07/17 00:35 - Medications Medications: Current Medications Acetaminophen (Tylenol 325mg Tab) 975 mg PO ONCE PRN PRN Reason: Fever >100.4 F Last Admin: 10/07/17 01:33 Dose: 975 mg Aspirin (Aspirin) 325 mg PO DAILY [facility] Last Admin: 10/11/17 03:09 Dose: 325 mg Atorvastatin Calcium (Lipitor) 20 mg PO DAILY [facility] Last Admin: 10/11/17 08:54 Dose: 20 mg Enoxaparin Sodium (Lovenox) 30 mg SC DAILY [place] PRN Reason: Protocol Last Admin: 10/11/17 12:45 Dose: 30 mg Glipizide (Glucotrol Xl) 2.5 mg PO ACB [facility] Last Admin: 10/11/17 11:29 Dose: 2.5 mg Haloperidol Lactate (Haldol) 1 mg IVP Q6 PRN PRN Reason: Agitation Last Admin: 10/11/17 13:17 Dose: 1 mg Azithromycin 500 mg/ Sodium (Chloride) 250 mls @ 250 mls/hr IVPB DAILY [facility] PRN Reason: Protocol Last Admin: 10/11/17 08:55 Dose: 250 mls/hr Cefepime HCl 1 gm/ Sodium (Chloride) 100 mls @ 100 mls/hr IVPB Q8 [facility] PRN Reason: Protocol Last Admin: 10/11/17 08:54 Dose: 100 mls/hr Dextrose (Dextrose 10% In Water) 1,000 mls @ 20 mls/hr IV .Q24H [facility] Stop: 10/11/17 15:45 Last Admin: 10/10/17 07:00 Dose: 20 mls/hr Linezolid (Zyvox 600mg/300ml D5w) 600 mg in 300 mls @ 300 mls/hr IVPB Q12 [place] PRN Reason: Protocol Insulin Human Lispro (Humalog) 0 units SC ACHS [facility] PRN Reason: Protocol Last Admin: 10/11/17 11:35 Dose: 3 unit Ipratropium [place] (Atrovent) 0.5 mg IH RQ4 [facility] Last Admin: 10/11/17 11:22 Dose: 0.5 mg Levalbuterol HCl (Xopenex) 0.63 mg INH RQ8 [facility] Last Admin: 10/11/17 07:43 Dose: 0.63 mg Levothyroxine Sodium (Synthroid) 50 mcg PO DAILY@0630 [facility] Last Admin: 10/11/17 06:25 Dose: 50 mcg Metoprolol Tartrate (Lopressor) 25 mg PO Q12 [facility] Last Admin: 10/11/17 03:09 Dose: 25 mg Physical Exam - Constitutional Appears: Chronically Ill - Head Exam Head Exam: NORMAL INSPECTION - Eye Exam Eye Exam: PERRL - ENT Exam ENT Exam: Normal Exam - Neck Exam Neck exam: Positive for: Normal Inspection - Respiratory Exam Respiratory Exam: Decreased Breath Sounds (b/l), Rhonchi, Wheezes - Cardiovascular Exam Cardiovascular Exam: Tachycardia - GI/Abdominal Exam GI & Abdominal Exam: Normal Bowel Sounds, Soft - Extremities Exam Extremities exam: Positive for: normal inspection - Back Exam Back exam: NORMAL INSPECTION - Neurological Exam Additional comments: Awake, Ox2, Confused, no motor sensory deficit, - Psychiatric Exam Psychiatric exam: Anxious - Skin Skin Exam: Warm Results - Vital Signs Recent Vital Signs: Last Vital Signs Temp 97.6 F 10/11/17 11:41 Pulse 97 H 10/11/17 11:41 Resp 18 10/11/17 11:41 BP 169/71 H 10/11/17 11:41 Pulse Ox 93 L 10/11/17 11:41 reviewed J.P. - Labs Result Diagrams: 10/18/17 04:20 10/18/17 11:36 Labs: Laboratory Results - last 24 hr 10/10/17 10/10/17 10/11/17 16:46 21:20 02:05 WBC RBC Hgb Hct MCV MCH MCHC RDW Plt Count MPV Neut % (Auto) Lymph % (Auto) [place] % (Auto) Eos % (Auto) Baso % (Auto) Neut # (Auto) Lymph # (Auto) [place] # (Auto) Eos # (Auto) Baso # (Auto) Neutrophils % (Manual) Lymphocytes % (Manual) Monocytes % (Manual) Platelet Estimate pCO2 pO2 HCO3 ABG pH ABG Total CO2 ABG O2 Saturation ABG O2 Content ABG Base Excess ABG Hemoglobin ABG Carboxyhemoglobin POC ABG HHb (Measured) ABG Methemoglobin ABG O2 Capacity Michael Test A-a O2 Difference Hgb O2 Saturation FiO2 Sodium 138 Potassium 3.7 Chloride 109 H Carbon Dioxide 23 Anion Gap 10 BUN 17 Creatinine 0.8 Est GFR ( Amer) > 60 Est GFR (Non-Af Amer) > 60 POC Glucose (mg/dL) 126 H 213 H Random Glucose 163 H Calcium 8.1 L Total Bilirubin 0.9 AST 129 H D ALT 81 H Alkaline Phosphatase 168 H Troponin I 0.1220 H* NT-Pro-B Natriuret Pep 41830 H Total Protein 6.7 Albumin 2.5 L Globulin 4.2 H Albumin/Globulin Ratio 0.6 L TSH 3rd Generation 1.10 10/11/17 10/11/17 10/11/17 02:05 05:39 08:00 WBC 14.1 H RBC 3.29 L Hgb 9.9 L Hct 30.7 L MCV 93.5 MCH 30.3 MCHC 32.4 L RDW 13.6 Plt Count 145 MPV 9.2 Neut % (Auto) 83.0 H Lymph % (Auto) 4.8 L [place] % (Auto) 12.0 H Eos % (Auto) 0.1 Baso % (Auto) 0.1 Neut # (Auto) 11.7 H Lymph # (Auto) 0.7 L [place] # (Auto) 1.7 H Eos # (Auto) 0.0 Baso # (Auto) 0.0 Neutrophils % (Manual) 83 H Lymphocytes % (Manual) 7 L Monocytes % (Manual) 10 Platelet Estimate Normal pCO2 pO2 HCO3 ABG pH ABG Total CO2 ABG O2 Saturation ABG O2 Content ABG Base Excess ABG Hemoglobin ABG Carboxyhemoglobin POC ABG HHb (Measured) ABG Methemoglobin ABG O2 Capacity Michael Test A-a O2 Difference Hgb O2 Saturation FiO2 Sodium Potassium Chloride Carbon Dioxide Anion Gap BUN Creatinine Est GFR ( Amer) Est GFR (Non-Af Amer) POC Glucose (mg/dL) 161 H Random Glucose Calcium Total Bilirubin AST ALT Alkaline Phosphatase Troponin I 0.1330 H* NT-Pro-B Natriuret Pep Total Protein Albumin Globulin Albumin/Globulin Ratio TSH 3rd Generation 10/11/17 10/11/17 11:20 15:14 WBC RBC Hgb Hct MCV MCH MCHC RDW Plt Count MPV Neut % (Auto) Lymph % (Auto) [place] % (Auto) Eos % (Auto) Baso % (Auto) Neut # (Auto) Lymph # (Auto) [place] # (Auto) Eos # (Auto) Baso # (Auto) Neutrophils % (Manual) Lymphocytes % (Manual) Monocytes % (Manual) Platelet Estimate pCO2 45 pO2 62 L HCO3 23.6 ABG pH 7.34 L ABG Total CO2 25.7 ABG O2 Saturation 92.9 L ABG O2 Content 13.3 L ABG Base Excess -1.6 ABG Hemoglobin 10.3 L ABG Carboxyhemoglobin 0.3 L POC ABG HHb (Measured) 7.0 H ABG Methemoglobin 1.0 ABG O2 Capacity 14.3 L Michael Test Yes A-a O2 Difference 167.0 Hgb O2 Saturation 91.7 L FiO2 40.0 Sodium Potassium Chloride Carbon Dioxide Anion Gap BUN Creatinine Est GFR ( Amer) Est GFR (Non-Af Amer) POC Glucose (mg/dL) 280 H Random Glucose Calcium Total Bilirubin AST ALT Alkaline Phosphatase Troponin I NT-Pro-B Natriuret Pep Total Protein Albumin Globulin Albumin/Globulin Ratio TSH 3rd Generation reviewed J.P. - EKG Data EKG comments: reviewed J.P. - Imaging and Cardiology Chest x-ray Status: Report reviewed by me (JMelvinP.) CT scan - chest Status: Report reviewed by me (J.P.) Assessment & Plan (1) Pneumonia Status: Acute Priority: High (2) Influenza A Status: Acute Priority: High (3) Sepsis Status: Acute - Assessment and Plan (Free Text) Plan: F/U Echo, continue NC 4 L/M, Zithromax, Cefepime , Zyvox, Xopenex , and rest of Tx. - Date & Time Date: 10/11/17 Time: 11:40
--- NOTE | 2017-10-11 15:59 | CT ---
PROCEDURE: CT HEAD WITHOUT CONTRAST. HISTORY: AMS. COMPARISON: No prior study available for comparison TECHNIQUE: Axial computed tomography images were obtained through the head/brain without intravenous contrast. Note that the examination is limited by motion artifact. Radiation dose: Total exam DLP = 1296.42 mGy-cm. This CT exam was performed using one or more of the following dose reduction techniques: Automated exposure control, adjustment of the mA and/or kV according to patient size, and/or use of iterative reconstruction technique. FINDINGS: HEMORRHAGE: No acute parenchymal, subarachnoid nor extra-axial hemorrhage. BRAIN: Mild-moderate diffuse/confluent chronic white matter ischemic changes seen extending peripherally into the deep and subcortical white matter both cerebral hemispheres. There may also be some extension of these changes into white matter tracts of both basal nuclei. No obvious parenchymal nor extra-axial masses or collections identified on this noncontrast study. Moderate volume loss. Mild vascular calcifications both carotid siphons. VENTRICLES: No obstructive hydrocephalus. CALVARIUM: No acute calvarial fractures. Hyperostosis frontalis interna. PARANASAL SINUSES: Moderate mucosal thickening seen within the ethmoid air complex extending superiorly into the frontal sinus with complete opacification left chamber of the frontal sinus. . There is subtotal opacification of the sphenoid sinus as well. Mild mucosal thickening visualized superior margins of both maxillary antra. MASTOID AIR CELLS: There is mild under pneumatization and sclerosis right mastoid air complex compared to the left side. Partial opacification residual right mastoid air cells. There is subtotal opacification of the left mastoid air complex. OTHER FINDINGS: None. IMPRESSION: Limited motion degraded study. Mild moderate chronic periventricular white matter ischemic changes. . Moderate volume loss. Mucoperiosteal inflammatory changes within the paranasal sinuses. There is also on sclerosis and under pneumatization of the right mastoid air complex with the partial opacification of residual right-sided mastoid air cells. Subtotal opacification left mastoid air complex.
--- NOTE | 2017-10-11 16:30 | CT ---
PROCEDURE: CT Chest without contrast HISTORY: pneumonia COMPARISON: None. TECHNIQUE: Contiguous axial images were obtained through the chest without intravenous contrast enhancement. Sagittal and coronal reconstructions were performed. Radiation dose (DLP): 503.12 mGy-cm. This CT exam was performed using one or more of the following dose reduction techniques: Automated exposure control, adjustment of the mA and/or kV according to patient size, and/or use of iterative reconstruction technique. FINDINGS: LUNGS: Diffuse bilateral alveolar-type infiltrates seen within the upper and lower lobes right greater than left including the middle lobe and lingular regions. . Bilateral effusions. The. There is a presumed calcified granuloma superior segment right lower lobe. . MEDIASTINUM: Heart size is upper limits of normal. No significant pericardial effusion. Ascending thoracic aorta measures approximately 1 3.17 cm and descending thoracic aorta measures approximately 2.2 cm. Pulmonary trunk measures approximately 2.5 cm. There are several small to medium-sized mediastinal lymph nodes. . PLEURA: As above. 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 No acute compression fractures no retropulsed fragments. UPPER ABDOMEN: Patient is status post cholecystectomy. Remaining visualized abdominal structures appear grossly unremarkable OTHER FINDINGS: None. IMPRESSION: There are extensive diffuse bilateral alveolar-type infiltrates throughout the upper and lower lobes right greater than left. Small bilateral effusions. 1st
--- NOTE | 2017-10-11 16:48 | CP.CCUPN ---
CCU Subjective - Physician Review Subjective (Free Text): 10/11/17 18:13 The patient was Seen/interviewed and examined by me at the bedside during ICU round, Medical records reviewed and Management issues were discussed and formulated with the house staff. Events reviewed 87 Years old Female with PMHx of HTN, Hypercholesterolemia and Diabetes Who presented to the ED on 10/07 complaining of worsening cough, congestion and fevers. Found to have worsening pneumonia, UTI and Influenza A Placed on droplet isolation Started on IV antibiotics and Tamiflu and Admitted to telemetry ICU called for worsening Respiratory status Stat CXR/Chest CT scan and ABG ordered Also called for Pulmonary and ID consult. CCU Objective - Vital Signs / Intake & Output Vital Signs (Last 4 hours): Vital Signs Temp Pulse Resp BP Pulse Ox 10/11/17 16:46 97.3 F L 99 H 20 174/72 H 94 L - Physical Exam Head: Positive for: Atraumatic, Normocephalic. Negative for: Tenderness, Contusion Pupils: Positive for: PERRL. Negative for: Sluggish, Non-Reactive Extroacular Muscles: Positive for: EOMI. Negative for: Gaze Palsy, Entrapment Conjunctiva: Positive for: Normal. Negative for: Injected, Icteric Mouth: Positive for: Moist Mucous Membranes Pharnyx: Positive for: Normal Nose (External): Positive for: Atraumatic Nose (Internal): Positive for: Normal Inspection Neck: Positive for: Normal Range of Motion, Trachea Midline. Negative for: Meningeal Signs, MIDLINE TENDERNESS, Paraspinal Tenderness, JVD, Lymphadenopathy , Bruit, Other Respiratory/Chest: Positive for: Respiratory Distress, Accessory Muscle Use, Wheezes, Decreased Breath Sounds, Rhonchi, Tachypneic. Negative for: Clear to Auscultation, Good Air Exchange, Rales, Tender to Palpation Cardiovascular: Positive for: Regular Rate and Rhythm, Normal S1, S2, Peripheal Pulses Present, Tachycardic. Negative for: Murmurs, Irregular Rhythm Abdomen: Positive for: Normal Bowel Sounds. Negative for: Tenderness, Distention, Peritoneal Signs Upper Extremity: Positive for: Normal Inspection, Normal ROM, NORMAL PULSES, Capillary Refill < 2s. Negative for: Cyanosis, Edema Lower Extremity: Positive for: Normal Inspection, NORMAL PULSES, Capillary Refill < 2 s. Negative for: Edema, CALF TENDERNESS Neurological: Positive for: GCS=15, CN II-XII Intact Psychiatric: Positive for: Alert, Oriented x 3 - Medications Active Medications: Active Medications Generic Name Dose Route Start Last Admin Trade Name Freq PRN Reason Stop Dose Admin Acetaminophen 975 mg 10/07/17 00:35 10/07/17 01:33 Tylenol 325mg Tab PO 975 mg ONCE PRN Administration Fever >100.4 F Aspirin 325 mg 10/11/17 03:00 10/11/17 03:09 Aspirin PO 325 mg DAILY MI Administration Atorvastatin Calcium 20 mg 10/07/17 20:15 10/11/17 08:54 Lipitor PO 20 mg DAILY MI Administration Enoxaparin Sodium 30 mg 10/11/17 11:30 10/11/17 12:45 Lovenox SC 30 mg DAILY MI Administration Protocol Glipizide 2.5 mg 10/08/17 07:30 10/11/17 11:29 Glucotrol Xl PO 2.5 mg ACB MI Administration Haloperidol Lactate 1 mg 10/11/17 13:05 10/11/17 13:17 Haldol IVP 1 mg Q6 PRN Administration Agitation Azithromycin 500 mg/ Sodium 250 mls @ 250 mls/hr 10/07/17 09:00 10/11/17 08: 55 Chloride IVPB 250 mls/hr DAILY MI Administration Protocol Cefepime HCl 1 gm/ Sodium 100 mls @ 100 mls/hr 10/10/17 17:00 10/11/17 08:54 Chloride IVPB 100 mls/hr Q8 MI Administration Protocol Linezolid 600 mg in 300 mls @ 300 mls/hr 10/11/17 15:05 10/11/17 16:34 Zyvox 600mg/300ml D5w IVPB 300 mls/hr Q12 MI Administration Protocol Insulin Human Lispro 0 units 10/07/17 22:00 10/11/17 16:32 Humalog SC Not Given ACHS MI Protocol Ipratropium [place] 0.5 mg 10/11/17 04:00 10/11/17 15:36 Atrovent IH 0.5 mg RQ4 MI Administration Levalbuterol HCl 0.63 mg 10/11/17 01:31 10/11/17 15:36 Xopenex INH 0.63 mg RQ8 MI Administration Levothyroxine Sodium 50 mcg 10/08/17 06:30 10/11/17 06:25 Synthroid PO 50 mcg DAILY@0630 MI Administration Metoprolol Tartrate 25 mg 10/11/17 02:48 10/11/17 03:09 Lopressor PO 25 mg Q12 MI Administration - Patient Studies Lab Studies: Microbiology Studies 10/10/17 16:00 MRSA Culture (Admit) - Final Naris MRSA NOT DETECTED 10/07/17 05:20 Blood Culture - Preliminary Blood NO GROWTH AFTER 4 DAYS 10/07/17 01:05 Blood Culture - Preliminary Blood NO GROWTH AFTER 4 DAYS 10/09/17 08:50 Gram Stain - Final Sputum Lab Studies 10/11/17 10/11/17 10/11/17 Range/Units 16:32 15:14 15:08 WBC (4.8-10.8) K/uL RBC (3.80-5.20) Mil/uL Hgb (12.0-16.0) g/dL Hct (34.0-47.0) % MCV (81.0-99.0) fl MCH (27.0-31.0) pg MCHC (33.0-37.0) g/dL RDW (11.5-14.5) % Plt Count (130-400) K/uL MPV (7.2-11.7) fl Neut % (Auto) (50.0-75.0) % Lymph % (Auto) (20.0-40.0) % [place] % (Auto) (0.0-10.0) % Eos % (Auto) (0.0-4.0) % Baso % (Auto) (0.0-2.0) % Neut # (Auto) (1.8-7.0) K/uL Lymph # (Auto) (1.0-4.3) K/uL [place] # (Auto) (0.0-0.8) K/uL Eos # (Auto) (0.0-0.7) K/uL Baso # (Auto) (0.0-0.2) K/uL Neutrophils % (Manual) (42-75) % Lymphocytes % (Manual) (20-50) % Monocytes % (Manual) (0-10) % Platelet Estimate (NORMAL) pCO2 45 (35-45) mm/Hg pO2 62 L (80-100) mm/Hg HCO3 23.6 (21-28) mmol/L ABG pH 7.34 L (7.35-7.45) ABG Total CO2 25.7 (22-28) mmol/L ABG O2 Saturation 92.9 L (95-98) % ABG O2 Content 13.3 L (15-23) ML/dL ABG Base Excess -1.6 (-2.0-3.0) mmol/L ABG Hemoglobin 10.3 L (11.7-17.4) g/dL ABG Carboxyhemoglobin 0.3 L (0.5-1.5) % POC ABG HHb (Measured) 7.0 H (0.0-5.0) % ABG Methemoglobin 1.0 (0.0-3.0) % ABG O2 Capacity 14.3 L (16-24) mL/dL Michael Test Yes A-a O2 Difference 167.0 mm/Hg Hgb O2 Saturation 91.7 L (95.0-98.0) % FiO2 40.0 % Sodium (132-148) mmol/l Potassium (3.6-5.0) MMOL/L Chloride (98-107) mmol/L Carbon Dioxide (22-30) mmol/L Anion Gap (10-20) BUN (7-17) mg/dl Creatinine (0.7-1.2) mg/dl Est GFR ( Amer) Est GFR (Non-Af Amer) POC Glucose (mg/dL) 143 H (65-110) mg/dL Random Glucose (65-105) mg/dL Calcium (8.4-10.2) mg/dL Total Bilirubin (0.2-1.3) mg/dl AST (14-36) U/L ALT (9-52) U/L Alkaline Phosphatase (38-126) U/L Troponin I 0.0900 (0.00-0.120) ng/mL NT-Pro-B Natriuret Pep (0-900) pg/ml Total Protein (6.3-8.2) G/DL Albumin (3.5-5.0) g/dL Globulin (2.2-3.9) gm/dL Albumin/Globulin Ratio (1.0-2.1) TSH 3rd Generation (0.46-4.68) mIU/ML 10/11/17 10/11/17 10/11/17 Range/Units 11:20 08:00 05:39 WBC (4.8-10.8) K/uL RBC (3.80-5.20) Mil/uL Hgb (12.0-16.0) g/dL Hct (34.0-47.0) % MCV (81.0-99.0) fl MCH (27.0-31.0) pg MCHC (33.0-37.0) g/dL RDW (11.5-14.5) % Plt Count (130-400) K/uL MPV (7.2-11.7) fl Neut % (Auto) (50.0-75.0) % Lymph % (Auto) (20.0-40.0) % [place] % (Auto) (0.0-10.0) % Eos % (Auto) (0.0-4.0) % Baso % (Auto) (0.0-2.0) % Neut # (Auto) (1.8-7.0) K/uL Lymph # (Auto) (1.0-4.3) K/uL [place] # (Auto) (0.0-0.8) K/uL Eos # (Auto) (0.0-0.7) K/uL Baso # (Auto) (0.0-0.2) K/uL Neutrophils % (Manual) (42-75) % Lymphocytes % (Manual) (20-50) % Monocytes % (Manual) (0-10) % Platelet Estimate (NORMAL) pCO2 (35-45) mm/Hg pO2 (80-100) mm/Hg HCO3 (21-28) mmol/L ABG pH (7.35-7.45) ABG Total CO2 (22-28) mmol/L ABG O2 Saturation (95-98) % ABG O2 Content (15-23) ML/dL ABG Base Excess (-2.0-3.0) mmol/L ABG Hemoglobin (11.7-17.4) g/dL ABG Carboxyhemoglobin (0.5-1.5) % POC ABG HHb (Measured) (0.0-5.0) % ABG Methemoglobin (0.0-3.0) % ABG O2 Capacity (16-24) mL/dL Michael Test A-a O2 Difference mm/Hg Hgb O2 Saturation (95.0-98.0) % FiO2 % Sodium (132-148) mmol/l Potassium (3.6-5.0) MMOL/L Chloride (98-107) mmol/L Carbon Dioxide (22-30) mmol/L Anion Gap (10-20) BUN (7-17) mg/dl Creatinine (0.7-1.2) mg/dl Est GFR ( Amer) Est GFR (Non-Af Amer) POC Glucose (mg/dL) 280 H 161 H (65-110) mg/dL Random Glucose (65-105) mg/dL Calcium (8.4-10.2) mg/dL Total Bilirubin (0.2-1.3) mg/dl AST (14-36) U/L ALT (9-52) U/L Alkaline Phosphatase (38-126) U/L Troponin I 0.1330 H* (0.00-0.120) ng/mL NT-Pro-B Natriuret Pep (0-900) pg/ml Total Protein (6.3-8.2) G/DL Albumin (3.5-5.0) g/dL Globulin (2.2-3.9) gm/dL Albumin/Globulin Ratio (1.0-2.1) TSH 3rd Generation (0.46-4.68) mIU/ML 10/11/17 10/11/17 10/10/17 Range/Units 02:05 02:05 21:20 WBC 14.1 H (4.8-10.8) K/uL RBC 3.29 L (3.80-5.20) Mil/uL Hgb 9.9 L (12.0-16.0) g/dL Hct 30.7 L (34.0-47.0) % MCV 93.5 (81.0-99.0) fl MCH 30.3 (27.0-31.0) pg MCHC 32.4 L (33.0-37.0) g/dL RDW 13.6 (11.5-14.5) % Plt Count 145 (130-400) K/uL MPV 9.2 (7.2-11.7) fl Neut % (Auto) 83.0 H (50.0-75.0) % Lymph % (Auto) 4.8 L (20.0-40.0) % [place] % (Auto) 12.0 H (0.0-10.0) % Eos % (Auto) 0.1 (0.0-4.0) % Baso % (Auto) 0.1 (0.0-2.0) % Neut # (Auto) 11.7 H (1.8-7.0) K/uL Lymph # (Auto) 0.7 L (1.0-4.3) K/uL [place] # (Auto) 1.7 H (0.0-0.8) K/uL Eos # (Auto) 0.0 (0.0-0.7) K/uL Baso # (Auto) 0.0 (0.0-0.2) K/uL Neutrophils % (Manual) 83 H (42-75) % Lymphocytes % (Manual) 7 L (20-50) % Monocytes % (Manual) 10 (0-10) % Platelet Estimate Normal (NORMAL) pCO2 (35-45) mm/Hg pO2 (80-100) mm/Hg HCO3 (21-28) mmol/L ABG pH (7.35-7.45) ABG Total CO2 (22-28) mmol/L ABG O2 Saturation (95-98) % ABG O2 Content (15-23) ML/dL ABG Base Excess (-2.0-3.0) mmol/L ABG Hemoglobin (11.7-17.4) g/dL ABG Carboxyhemoglobin (0.5-1.5) % POC ABG HHb (Measured) (0.0-5.0) % ABG Methemoglobin (0.0-3.0) % ABG O2 Capacity (16-24) mL/dL Michael Test A-a O2 Difference mm/Hg Hgb O2 Saturation (95.0-98.0) % FiO2 % Sodium 138 (132-148) mmol/l Potassium 3.7 (3.6-5.0) MMOL/L Chloride 109 H (98-107) mmol/L Carbon Dioxide 23 (22-30) mmol/L Anion Gap 10 (10-20) BUN 17 (7-17) mg/dl Creatinine 0.8 (0.7-1.2) mg/dl Est GFR ( Amer) > 60 Est GFR (Non-Af Amer) > 60 POC Glucose (mg/dL) 213 H (65-110) mg/dL Random Glucose 163 H (65-105) mg/dL Calcium 8.1 L (8.4-10.2) mg/dL Total Bilirubin 0.9 (0.2-1.3) mg/dl AST 129 H D (14-36) U/L ALT 81 H (9-52) U/L Alkaline Phosphatase 168 H (38-126) U/L Troponin I 0.1220 H* (0.00-0.120) ng/mL NT-Pro-B Natriuret Pep 43612 H (0-900) pg/ml Total Protein 6.7 (6.3-8.2) G/DL Albumin 2.5 L (3.5-5.0) g/dL Globulin 4.2 H (2.2-3.9) gm/dL Albumin/Globulin Ratio 0.6 L (1.0-2.1) TSH 3rd Generation 1.10 (0.46-4.68) mIU/ML 10/10/17 Range/Units 16:46 WBC (4.8-10.8) K/uL RBC (3.80-5.20) Mil/uL Hgb (12.0-16.0) g/dL Hct (34.0-47.0) % MCV (81.0-99.0) fl MCH (27.0-31.0) pg MCHC (33.0-37.0) g/dL RDW (11.5-14.5) % Plt Count (130-400) K/uL MPV (7.2-11.7) fl Neut % (Auto) (50.0-75.0) % Lymph % (Auto) (20.0-40.0) % [place] % (Auto) (0.0-10.0) % Eos % (Auto) (0.0-4.0) % Baso % (Auto) (0.0-2.0) % Neut # (Auto) (1.8-7.0) K/uL Lymph # (Auto) (1.0-4.3) K/uL [place] # (Auto) (0.0-0.8) K/uL Eos # (Auto) (0.0-0.7) K/uL Baso # (Auto) (0.0-0.2) K/uL Neutrophils % (Manual) (42-75) % Lymphocytes % (Manual) (20-50) % Monocytes % (Manual) (0-10) % Platelet Estimate (NORMAL) pCO2 (35-45) mm/Hg pO2 (80-100) mm/Hg HCO3 (21-28) mmol/L ABG pH (7.35-7.45) ABG Total CO2 (22-28) mmol/L ABG O2 Saturation (95-98) % ABG O2 Content (15-23) ML/dL ABG Base Excess (-2.0-3.0) mmol/L ABG Hemoglobin (11.7-17.4) g/dL ABG Carboxyhemoglobin (0.5-1.5) % POC ABG HHb (Measured) (0.0-5.0) % ABG Methemoglobin (0.0-3.0) % ABG O2 Capacity (16-24) mL/dL Michael Test A-a O2 Difference mm/Hg Hgb O2 Saturation (95.0-98.0) % FiO2 % Sodium (132-148) mmol/l Potassium (3.6-5.0) MMOL/L Chloride (98-107) mmol/L Carbon Dioxide (22-30) mmol/L Anion Gap (10-20) BUN (7-17) mg/dl Creatinine (0.7-1.2) mg/dl Est GFR ( Amer) Est GFR (Non-Af Amer) POC Glucose (mg/dL) 126 H (65-110) mg/dL Random Glucose (65-105) mg/dL Calcium (8.4-10.2) mg/dL Total Bilirubin (0.2-1.3) mg/dl AST (14-36) U/L ALT (9-52) U/L Alkaline Phosphatase (38-126) U/L Troponin I (0.00-0.120) ng/mL NT-Pro-B Natriuret Pep (0-900) pg/ml Total Protein (6.3-8.2) G/DL Albumin (3.5-5.0) g/dL Globulin (2.2-3.9) gm/dL Albumin/Globulin Ratio (1.0-2.1) TSH 3rd Generation (0.46-4.68) mIU/ML Laboratory Results - last 24 hr 10/10/17 10/10/17 10/11/17 16:46 21:20 02:05 WBC RBC Hgb Hct MCV MCH MCHC RDW Plt Count MPV Neut % (Auto) Lymph % (Auto) [place] % (Auto) Eos % (Auto) Baso % (Auto) Neut # (Auto) Lymph # (Auto) [place] # (Auto) Eos # (Auto) Baso # (Auto) Neutrophils % (Manual) Lymphocytes % (Manual) Monocytes % (Manual) Platelet Estimate pCO2 pO2 HCO3 ABG pH ABG Total CO2 ABG O2 Saturation ABG O2 Content ABG Base Excess ABG Hemoglobin ABG Carboxyhemoglobin POC ABG HHb (Measured) ABG Methemoglobin ABG O2 Capacity Michael Test A-a O2 Difference Hgb O2 Saturation FiO2 Sodium 138 Potassium 3.7 Chloride 109 H Carbon Dioxide 23 Anion Gap 10 BUN 17 Creatinine 0.8 Est GFR ( Amer) > 60 Est GFR (Non-Af Amer) > 60 POC Glucose (mg/dL) 126 H 213 H Random Glucose 163 H Calcium 8.1 L Total Bilirubin 0.9 AST 129 H D ALT 81 H Alkaline Phosphatase 168 H Troponin I 0.1220 H* NT-Pro-B Natriuret Pep 95259 H Total Protein 6.7 Albumin 2.5 L Globulin 4.2 H Albumin/Globulin Ratio 0.6 L TSH 3rd Generation 1.10 10/11/17 10/11/17 10/11/17 02:05 05:39 08:00 WBC 14.1 H RBC 3.29 L Hgb 9.9 L Hct 30.7 L MCV 93.5 MCH 30.3 MCHC 32.4 L RDW 13.6 Plt Count 145 MPV 9.2 Neut % (Auto) 83.0 H Lymph % (Auto) 4.8 L [place] % (Auto) 12.0 H Eos % (Auto) 0.1 Baso % (Auto) 0.1 Neut # (Auto) 11.7 H Lymph # (Auto) 0.7 L [place] # (Auto) 1.7 H Eos # (Auto) 0.0 Baso # (Auto) 0.0 Neutrophils % (Manual) 83 H Lymphocytes % (Manual) 7 L Monocytes % (Manual) 10 Platelet Estimate Normal pCO2 pO2 HCO3 ABG pH ABG Total CO2 ABG O2 Saturation ABG O2 Content ABG Base Excess ABG Hemoglobin ABG Carboxyhemoglobin POC ABG HHb (Measured) ABG Methemoglobin ABG O2 Capacity Michael Test A-a O2 Difference Hgb O2 Saturation FiO2 Sodium Potassium Chloride Carbon Dioxide Anion Gap BUN Creatinine Est GFR ( Amer) Est GFR (Non-Af Amer) POC Glucose (mg/dL) 161 H Random Glucose Calcium Total Bilirubin AST ALT Alkaline Phosphatase Troponin I 0.1330 H* NT-Pro-B Natriuret Pep Total Protein Albumin Globulin Albumin/Globulin Ratio TSH 3rd Generation 10/11/17 10/11/17 10/11/17 11:20 15:08 15:14 WBC RBC Hgb Hct MCV MCH MCHC RDW Plt Count MPV Neut % (Auto) Lymph % (Auto) [place] % (Auto) Eos % (Auto) Baso % (Auto) Neut # (Auto) Lymph # (Auto) [place] # (Auto) Eos # (Auto) Baso # (Auto) Neutrophils % (Manual) Lymphocytes % (Manual) Monocytes % (Manual) Platelet Estimate pCO2 45 pO2 62 L HCO3 23.6 ABG pH 7.34 L ABG Total CO2 25.7 ABG O2 Saturation 92.9 L ABG O2 Content 13.3 L ABG Base Excess -1.6 ABG Hemoglobin 10.3 L ABG Carboxyhemoglobin 0.3 L POC ABG HHb (Measured) 7.0 H ABG Methemoglobin 1.0 ABG O2 Capacity 14.3 L Michael Test Yes A-a O2 Difference 167.0 Hgb O2 Saturation 91.7 L FiO2 40.0 Sodium Potassium Chloride Carbon Dioxide Anion Gap BUN Creatinine Est GFR ( Amer) Est GFR (Non-Af Amer) POC Glucose (mg/dL) 280 H Random Glucose Calcium Total Bilirubin AST ALT Alkaline Phosphatase Troponin I 0.0900 NT-Pro-B Natriuret Pep Total Protein Albumin Globulin Albumin/Globulin Ratio TSH 3rd Generation 10/11/17 16:32 WBC RBC Hgb Hct MCV MCH MCHC RDW Plt Count MPV Neut % (Auto) Lymph % (Auto) [place] % (Auto) Eos % (Auto) Baso % (Auto) Neut # (Auto) Lymph # (Auto) [place] # (Auto) Eos # (Auto) Baso # (Auto) Neutrophils % (Manual) Lymphocytes % (Manual) Monocytes % (Manual) Platelet Estimate pCO2 pO2 HCO3 ABG pH ABG Total CO2 ABG O2 Saturation ABG O2 Content ABG Base Excess ABG Hemoglobin ABG Carboxyhemoglobin POC ABG HHb (Measured) ABG Methemoglobin ABG O2 Capacity Michael Test A-a O2 Difference Hgb O2 Saturation FiO2 Sodium Potassium Chloride Carbon Dioxide Anion Gap BUN Creatinine Est GFR ( Amer) Est GFR (Non-Af Amer) POC Glucose (mg/dL) 143 H Random Glucose Calcium Total Bilirubin AST ALT Alkaline Phosphatase Troponin I NT-Pro-B Natriuret Pep Total Protein Albumin Globulin Albumin/Globulin Ratio TSH 3rd Generation EKG/Cardiology Studies: Cardiology / EKG Studies 10/11/17 EKG [ELECTROCARDIOGRAM] Routine Comment: Mode Of Transportation: Reason For Exam: Tachycardia PRE OP:: N Does Patient Have a Pacemaker?: No Isolation: Droplet Fingerstick Blood Sugar Results: 143 Review of Systems - Cardiovascular Cardiovascular: absent: Chest Pain, Chest Pain at Rest, Chest Pain with Activity , Claudication, Diaphoresis - Respiratory Respiratory: Cough, Dyspnea, Dyspnea on Exertion. absent: Hemoptysis, Wheezing , Snoring Critical Care Progress Note - Extremities/Vascular Does the Patient have a Central Venous Catheter?: No Does the Patient need a Central Venous Catheter?: No Does the Patient have a Jamil Catheter?: No Does the Patient need a Jamil Catheter?: No - Nutrition Nutrition: Nutrition Category Date Time Status Consistent Carbohydrate [DIET] Diets 10/08/17 Dinner Active Assessment/Plan - Assessment and Plan (Free Text) Plan: Acute respiratory failure with hypoxia secondary to worsening pneumonia and Influenza A Elevated Trop level PMHx of HTN, Hypercholesterolemia and Diabetes Transfer to ICU for hemodynamic and Respiratory monitoring Continue droplet isolation Continue IV antibiotics and Tamiflu Add Zyvox IV Hydrations Maintain MAP 65-75 Follow up CXR/Chest CT scan and ABG BP and Glycemic control Cardiology, Pulmonary and ID consult appreciated. # Stress Ulcer prophylaxis Not currently indicated. # DVT prophylaxis with SCD, SQ Heparin # Code Status: Full code
[2017-10-11] MEDS ORDERED: Sodium Chloride 3% for Inhalation 4 ML VIAL.NEB IH PRN (20:15)
[2017-10-11] MEDS: Linezolid 600 mg in D5W 300 ml 600 MG/300 ML BAG IVPB SCH (22:46)
[2017-10-11] MEDS ORDERED: Chlorhexidine Gluconate 1 APPL/PKT TP ONE (22:56)
[2017-10-12] MEDS: Cefepime 1 GM in Sodium Chloride 0.9% 100 ML IVPB SCH ×3 (01:37→16:08)
[2017-10-12] MEDS: Ipratropium 0.02% Inhal Soln (0.5 mg/2.5 ml) UD IH SCH ×5 (04:58→19:52)
[2017-10-12 05:23] LABS: HEMOGLOBIN 10.2 g/dL (12.0-16.0); MEAN CELL VOLUME 94.4 fl (81.0-99.0); MEAN CORPUSCULAR HEMOGLOBIN 30.6 pg (27.0-31.0); MEAN CORPUSCULAR HGB CONC 32.4 g/dL (33.0-37.0); RBC 3.32 Mil/uL (3.80-5.20); RED CELL DISTRIBUTION WIDTH 13.8 % (11.5-14.5); WHITE BLOOD COUNT 13.1 K/uL (4.8-10.8)
[2017-10-12 05:25] LABS: ABG ALLEN TEST YES; ARTERIAL BLOOD GAS HCO3 25.2 mmol/L (21-28); ARTERIAL BLOOD GAS O2 SAT 92.3 % (95-98); ARTERIAL BLOOD GAS PCO2 40 mm/Hg (35-45); ARTERIAL BLOOD GAS PH 7.41 (7.35-7.45); ARTERIAL BLOOD GAS PO2 54 mm/Hg (80-100); ARTERIAL BLOOD GAS TCO2 26.6 mmol/L (22-28)
[2017-10-12 05:33] LABS: BLOOD UREA NITROGEN 20 mg/dl (7-17); CALCIUM 8.6 mg/dL (8.4-10.2); GFR AFRICAN-AMERICAN > 60; GFR NON-AFRICAN AMERICAN 59
[2017-10-12 05:48] LABS: B-TYPE NATRIURETIC PEPTIDE 24800 pg/ml (0-900)
[2017-10-12] MEDS: Levothyroxine 50 MCG TAB PO SCH (06:44)
[2017-10-12] MEDS: Insulin Lispro (humaLOG) 100 Units/ml Inj SC SCH ×4 (06:47→21:45)
[2017-10-12] MEDS: Levalbuterol 0.63 MG/3 ML Inhal Soln UD INH SCH ×2 (08:17→15:50)
[2017-10-12] MEDS: GlipiZIDE 2.5 mg SR Tab PO SCH (09:30)
[2017-10-12] MEDS: Linezolid 600 mg in D5W 300 ml 600 MG/300 ML BAG IVPB SCH ×2 (10:42→21:39)
[2017-10-12] MEDS ORDERED: Albuterol-Ipratrop 3 mg / 0.5 (3 ml) UD INH STA (11:06)
[2017-10-12 11:07] LABS: GRANULAR CAST 1 /lpf (0-1); SQUAMOUS EPITHIAL < 1 /hpf (0-5); URINE AMORPHOUS SEDIMENT RARE /ul (<OCC); URINE BACTERIA RARE (<OCC); URINE BILIRUBIN NEGATIVE (NEGATIVE); URINE BLOOD SMALL (NEGATIVE); URINE CLARITY SLIGHTY-CLOUDY (Clear); URINE COLOR YELLOW (YELLOW); URINE GLUCOSE (UA) 150 mg/dL (Normal); URINE LEUKOCYTE ESTERASE NEG Leu/uL (Negative); URINE NITRATE NEGATIVE (NEGATIVE); URINE PROTEIN 30 mg/dL (NEGATIVE); URINE UROBILINOGEN 0.2-1.0 mg/dL (0.2-1.0)
--- NOTE | 2017-10-12 12:08 | RAD ---
HISTORY: reevaluate COMPARISON: October 11, 2017. Single-view chest. October 11, 2017.CT thorax FINDINGS: LUNGS: Stable, extensive infiltrates primarily affecting right upper lobe, left lower lobe. Similar less extensive changes right lower lobe and left upper lobe. PLEURA: No significant pleural effusion identified, no pneumothorax apparent. CARDIOVASCULAR: No radiographic findings to suggest acute or significant cardiovascular disease. OSSEOUS STRUCTURES: No significant abnormalities. VISUALIZED UPPER ABDOMEN: Normal. OTHER FINDINGS: None. IMPRESSION: Stable multifocal infiltrates.
[2017-10-12] MEDS: Azithromycin 500 MG in Sodium Chloride 0.9% 250 ML IVPB SCH (13:01)
[2017-10-12] MEDS: Enoxaparin 30 mg Syringe SC SCH (13:33)
[2017-10-12 13:47] LABS: ABG ALLEN TEST YES; ARTERIAL BLOOD GAS O2 SAT 88.3 % (95-98); ARTERIAL BLOOD GAS PCO2 38 mm/Hg (35-45); ARTERIAL BLOOD GAS PH 7.46 (7.35-7.45); ARTERIAL BLOOD GAS PO2 47 mm/Hg (80-100); ARTERIAL BLOOD GAS TCO2 28.2 mmol/L (22-28)
--- NOTE | 2017-10-12 13:56 | CP.CCUPN ---
<Heidi Mascorro - Last Filed: 10/12/17 17:33> CCU Subjective - Physician Review Subjective (Free Text): 10/12/17 87 y/o F with PMHx of HTN, Hypercholesterolemia, DM with acute respiratory failure with hypoxia secondary to worsening pneumonia and Influenza A. Patient seen and examined at bedside with director engineering, Dr. Ruiz. Patient looks restless, and lethargic. Continue in droplet isolation. Next of kin was contacted, Azra Lambert, patient's daughter. I discussed patient' s daughter, who is her next of kin, patient's respiratory status. I also discussed possible respiratory management if patient's respiratory status continues to deteriorate. Patient may require intubation for better respiratory support. Patient's next of kin agrees with plan, and verbalized understanding current plan. Critical Care Time Spent (in minutes): 30 CCU Objective - Vital Signs / Intake & Output Vital Signs (Last 4 hours): Vital Signs Temp Pulse Resp BP Pulse Ox 10/12/17 13:31 96 H 184/76 H 10/12/17 12:00 98.0 F 94 H 33 H 161/51 H 95 10/12/17 11:48 23 10/12/17 11:21 22 Intake and Output (Last 8hrs): Intake & Output 10/11/17 10/12/17 10/12/17 22:59 06:59 14:59 Intake Total 360 120 100 Output Total 100 650 0 Balance 260 -530 100 Intake: IV 10 120 Intake, Piggyback 100 100 Oral 250 Output: Urine 100 650 Urethral (Jamil) 100 650 Emesis 0 Other: # Bowel Movements 1 - Physical Exam Head: Positive for: Atraumatic, Normocephalic. Negative for: Tenderness, Contusion Pupils: Positive for: PERRL. Negative for: Sluggish, Non-Reactive Extroacular Muscles: Positive for: EOMI. Negative for: Gaze Palsy, Entrapment Conjunctiva: Positive for: Normal. Negative for: Injected, Icteric Mouth: Positive for: Moist Mucous Membranes Pharnyx: Positive for: Normal Nose (External): Positive for: Atraumatic Nose (Internal): Positive for: Normal Inspection Neck: Positive for: Normal Range of Motion, Trachea Midline. Negative for: Meningeal Signs, MIDLINE TENDERNESS, Paraspinal Tenderness, JVD, Lymphadenopathy , Bruit, Other Respiratory/Chest: Positive for: Respiratory Distress, Accessory Muscle Use, Wheezes, Decreased Breath Sounds, Rhonchi, Tachypneic. Negative for: Clear to Auscultation, Good Air Exchange, Rales, Tender to Palpation Cardiovascular: Positive for: Regular Rate and Rhythm, Normal S1, S2, Peripheal Pulses Present, Tachycardic. Negative for: Murmurs, Irregular Rhythm Abdomen: Positive for: Normal Bowel Sounds. Negative for: Tenderness, Distention, Peritoneal Signs Upper Extremity: Positive for: Normal Inspection, Normal ROM, NORMAL PULSES, Capillary Refill < 2s. Negative for: Cyanosis, Edema Lower Extremity: Positive for: Edema (in lower extremities), NORMAL PULSES, Capillary Refill < 2 s Skin: Positive for: Warm, Dry Psychiatric: Positive for: Lethargic, Other (restless). Negative for: Alert, Oriented x 3 - Medications Active Medications: Active Medications Generic Name Dose Route Start Last Admin Trade Name Freq PRN Reason Stop Dose Admin Acetaminophen 975 mg 10/11/17 20:15 Tylenol 325mg Tab PO ONCE PRN Fever >100.4 F Aspirin 325 mg 10/12/17 09:00 10/12/17 13:08 Aspirin PO Not Given DAILY MI Atorvastatin Calcium 20 mg 10/12/17 09:00 10/12/17 13:31 Lipitor PO 20 mg DAILY MI Administration Enoxaparin Sodium 30 mg 10/12/17 09:00 10/12/17 13:33 Lovenox SC Not Given DAILY MI Protocol Glipizide 2.5 mg 10/12/17 07:30 10/12/17 09:30 Glucotrol Xl PO Not Given ACB MI Haloperidol Lactate 1 mg 10/11/17 20:15 Haldol IVP Q6 PRN Agitation Cefepime HCl 1 gm/ Sodium 100 mls @ 100 mls/hr 10/12/17 01:00 10/12/17 09:31 Chloride IVPB 100 mls/hr Q8 MI Administration Protocol Azithromycin 500 mg/ Sodium 250 mls @ 250 mls/hr 10/12/17 09:00 10/12/17 13: 01 Chloride IVPB 250 mls/hr DAILY MI Administration Protocol Linezolid 600 mg in 300 mls @ 300 mls/hr 10/11/17 21:00 10/12/17 10:42 Zyvox 600mg/300ml D5w IVPB 300 mls/hr Q12 MI Administration Protocol Insulin Human Lispro 0 units 10/11/17 22:00 10/12/17 13:00 Humalog SC Not Given ACHS [facility] Protocol Ipratropium [place] 0.5 mg 10/12/17 00:00 10/12/17 08:17 Atrovent IH 0.5 mg RQ4 MI Administration Levalbuterol HCl 0.63 mg 10/12/17 00:00 10/12/17 08:17 Xopenex INH 0.63 mg RQ8 MI Administration Levothyroxine Sodium 50 mcg 10/12/17 06:30 10/12/17 06:44 Synthroid PO 50 mcg DAILY@0630 MI Administration Metoprolol Tartrate 25 mg 10/11/17 21:00 10/12/17 13:31 Lopressor PO 25 mg Q12 MI Administration - Patient Studies Lab Studies: Microbiology Studies 10/09/17 08:50 Gram Stain - Final Sputum Sputum Culture - Final NORMAL ORAL LINA 10/07/17 05:20 Blood Culture - Final Blood NO GROWTH AFTER 5 DAYS Gram Stain - Final TEST NOT PERFORMED 10/07/17 01:05 Blood Culture - Final Blood NO GROWTH AFTER 5 DAYS Gram Stain - Final TEST NOT PERFORMED 10/10/17 16:00 MRSA Culture (Admit) - Final Naris MRSA NOT DETECTED Lab Studies 10/12/17 10/12/17 10/12/17 Range/Units 13:44 11:07 05:35 WBC (4.8-10.8) K/uL RBC (3.80-5.20) Mil/uL Hgb (12.0-16.0) g/dL Hct (34.0-47.0) % MCV (81.0-99.0) fl MCH (27.0-31.0) pg MCHC (33.0-37.0) g/dL RDW (11.5-14.5) % Plt Count (130-400) K/uL pCO2 38 (35-45) mm/Hg pO2 47 L (80-100) mm/Hg HCO3 27.0 (21-28) mmol/L ABG pH 7.46 H (7.35-7.45) ABG Total CO2 28.2 H (22-28) mmol/L ABG O2 Saturation 88.3 L (95-98) % ABG O2 Content (15-23) ML/dL ABG Base Excess 3.1 H (-2.0-3.0) mmol/L ABG Hemoglobin (11.7-17.4) g/dL ABG Carboxyhemoglobin (0.5-1.5) % POC ABG HHb (Measured) (0.0-5.0) % ABG Methemoglobin (0.0-3.0) % ABG O2 Capacity (16-24) mL/dL Michael Test Yes ABG Potassium 3.3 L (3.6-5.2) mmol/L A-a O2 Difference 476.0 mm/Hg Hgb O2 Saturation (95.0-98.0) % Glucose 157 H (65-105) mg/dL Lactate 1.4 (0.7-2.1) mmol/L FiO2 80.0 % Sodium 139.0 (132-148) mmol/l Potassium (3.6-5.0) MMOL/L Chloride 107.0 (98-107) mmol/L Carbon Dioxide (22-30) mmol/L Anion Gap (10-20) BUN (7-17) mg/dl Creatinine (0.7-1.2) mg/dl Est GFR ( Amer) Est GFR (Non-Af Amer) POC Glucose (mg/dL) 108 169 H (65-110) mg/dL Random Glucose (65-105) mg/dL Calcium (8.4-10.2) mg/dL Troponin I (0.00-0.120) ng/mL NT-Pro-B Natriuret Pep (0-900) pg/ml Arterial Blood Potassium 3.3 L (3.6-5.2) mmol/L Urine Color (YELLOW) Urine Clarity (Clear) Urine pH (5.0-8.0) Ur Specific [place] (1.003-1.030) Urine Protein (NEGATIVE) mg/dL Urine Glucose (UA) (Normal) mg/dL Urine Ketones (NEGATIVE) mg/dL Urine Blood (NEGATIVE) Urine Nitrate (NEGATIVE) Urine Bilirubin (NEGATIVE) Urine Urobilinogen (0.2-1.0) mg/dL Ur Leukocyte Esterase (Negative) J Carlos/uL Urine RBC (Auto) (0-3) /hpf Urine Microscopic WBC (0-5) /hpf Ur Squamous Epith Cells (0-5) /hpf Amorphous Sediment (<OCC) /ul Urine Bacteria (<OCC) Granular Casts (Auto) (0-1) /lpf 10/12/17 10/12/17 10/12/17 Range/Units 05:16 04:15 04:15 WBC 13.1 H (4.8-10.8) K/uL RBC 3.32 L (3.80-5.20) Mil/uL Hgb 10.2 L (12.0-16.0) g/dL Hct 31.4 L (34.0-47.0) % MCV 94.4 (81.0-99.0) fl MCH 30.6 (27.0-31.0) pg MCHC 32.4 L (33.0-37.0) g/dL RDW 13.8 (11.5-14.5) % Plt Count 201 (130-400) K/uL pCO2 40 (35-45) mm/Hg pO2 54 L (80-100) mm/Hg HCO3 25.2 (21-28) mmol/L ABG pH 7.41 (7.35-7.45) ABG Total CO2 26.6 (22-28) mmol/L ABG O2 Saturation 92.3 L (95-98) % ABG O2 Content (15-23) ML/dL ABG Base Excess 0.7 (-2.0-3.0) mmol/L ABG Hemoglobin (11.7-17.4) g/dL ABG Carboxyhemoglobin (0.5-1.5) % POC ABG HHb (Measured) (0.0-5.0) % ABG Methemoglobin (0.0-3.0) % ABG O2 Capacity (16-24) mL/dL Michael Test Yes ABG Potassium 3.5 L (3.6-5.2) mmol/L A-a O2 Difference 324.0 mm/Hg Hgb O2 Saturation (95.0-98.0) % Glucose 174 H (65-105) mg/dL Lactate 1.2 (0.7-2.1) mmol/L FiO2 60.0 % Sodium 138.0 139 (132-148) mmol/l Potassium 3.9 (3.6-5.0) MMOL/L Chloride 108.0 H 108 H (98-107) mmol/L Carbon Dioxide 24 (22-30) mmol/L Anion Gap 11 (10-20) BUN 20 H (7-17) mg/dl Creatinine 0.9 (0.7-1.2) mg/dl Est GFR ( Amer) > 60 Est GFR (Non-Af Amer) 59 POC Glucose (mg/dL) (65-110) mg/dL Random Glucose 173 H (65-105) mg/dL Calcium 8.6 (8.4-10.2) mg/dL Troponin I (0.00-0.120) ng/mL NT-Pro-B Natriuret Pep 79712 H (0-900) pg/ml Arterial Blood Potassium 3.5 L (3.6-5.2) mmol/L Urine Color (YELLOW) Urine Clarity (Clear) Urine pH (5.0-8.0) Ur Specific [place] (1.003-1.030) Urine Protein (NEGATIVE) mg/dL Urine Glucose (UA) (Normal) mg/dL Urine Ketones (NEGATIVE) mg/dL Urine Blood (NEGATIVE) Urine Nitrate (NEGATIVE) Urine Bilirubin (NEGATIVE) Urine Urobilinogen (0.2-1.0) mg/dL Ur Leukocyte Esterase (Negative) J Carlos/uL Urine RBC (Auto) (0-3) /hpf Urine Microscopic WBC (0-5) /hpf Ur Squamous Epith Cells (0-5) /hpf Amorphous Sediment (<OCC) /ul Urine Bacteria (<OCC) Granular Casts (Auto) (0-1) /lpf 10/11/17 10/11/17 10/11/17 Range/Units 21:42 16:32 15:14 WBC (4.8-10.8) K/uL RBC (3.80-5.20) Mil/uL Hgb (12.0-16.0) g/dL Hct (34.0-47.0) % MCV (81.0-99.0) fl MCH (27.0-31.0) pg MCHC (33.0-37.0) g/dL RDW (11.5-14.5) % Plt Count (130-400) K/uL pCO2 45 (35-45) mm/Hg pO2 62 L (80-100) mm/Hg HCO3 23.6 (21-28) mmol/L ABG pH 7.34 L (7.35-7.45) ABG Total CO2 25.7 (22-28) mmol/L ABG O2 Saturation 92.9 L (95-98) % ABG O2 Content 13.3 L (15-23) ML/dL ABG Base Excess -1.6 (-2.0-3.0) mmol/L ABG Hemoglobin 10.3 L (11.7-17.4) g/dL ABG Carboxyhemoglobin 0.3 L (0.5-1.5) % POC ABG HHb (Measured) 7.0 H (0.0-5.0) % ABG Methemoglobin 1.0 (0.0-3.0) % ABG O2 Capacity 14.3 L (16-24) mL/dL Michael Test Yes ABG Potassium (3.6-5.2) mmol/L A-a O2 Difference 167.0 mm/Hg Hgb O2 Saturation 91.7 L (95.0-98.0) % Glucose (65-105) mg/dL Lactate (0.7-2.1) mmol/L FiO2 40.0 % Sodium (132-148) mmol/l Potassium (3.6-5.0) MMOL/L Chloride (98-107) mmol/L Carbon Dioxide (22-30) mmol/L Anion Gap (10-20) BUN (7-17) mg/dl Creatinine (0.7-1.2) mg/dl Est GFR ( Amer) Est GFR (Non-Af Amer) POC Glucose (mg/dL) 186 H 143 H (65-110) mg/dL Random Glucose (65-105) mg/dL Calcium (8.4-10.2) mg/dL Troponin I (0.00-0.120) ng/mL NT-Pro-B Natriuret Pep (0-900) pg/ml Arterial Blood Potassium (3.6-5.2) mmol/L Urine Color (YELLOW) Urine Clarity (Clear) Urine pH (5.0-8.0) Ur Specific [place] (1.003-1.030) Urine Protein (NEGATIVE) mg/dL Urine Glucose (UA) (Normal) mg/dL Urine Ketones (NEGATIVE) mg/dL Urine Blood (NEGATIVE) Urine Nitrate (NEGATIVE) Urine Bilirubin (NEGATIVE) Urine Urobilinogen (0.2-1.0) mg/dL Ur Leukocyte Esterase (Negative) J Carlos/uL Urine RBC (Auto) (0-3) /hpf Urine Microscopic WBC (0-5) /hpf Ur Squamous Epith Cells (0-5) /hpf Amorphous Sediment (<OCC) /ul Urine Bacteria (<OCC) Granular Casts (Auto) (0-1) /lpf 10/11/17 10/11/17 Range/Units 15:08 10:58 WBC (4.8-10.8) K/uL RBC (3.80-5.20) Mil/uL Hgb (12.0-16.0) g/dL Hct (34.0-47.0) % MCV (81.0-99.0) fl MCH (27.0-31.0) pg MCHC (33.0-37.0) g/dL RDW (11.5-14.5) % Plt Count (130-400) K/uL pCO2 (35-45) mm/Hg pO2 (80-100) mm/Hg HCO3 (21-28) mmol/L ABG pH (7.35-7.45) ABG Total CO2 (22-28) mmol/L ABG O2 Saturation (95-98) % ABG O2 Content (15-23) ML/dL ABG Base Excess (-2.0-3.0) mmol/L ABG Hemoglobin (11.7-17.4) g/dL ABG Carboxyhemoglobin (0.5-1.5) % POC ABG HHb (Measured) (0.0-5.0) % ABG Methemoglobin (0.0-3.0) % ABG O2 Capacity (16-24) mL/dL Michael Test ABG Potassium (3.6-5.2) mmol/L A-a O2 Difference mm/Hg Hgb O2 Saturation (95.0-98.0) % Glucose (65-105) mg/dL Lactate (0.7-2.1) mmol/L FiO2 % Sodium (132-148) mmol/l Potassium (3.6-5.0) MMOL/L Chloride (98-107) mmol/L Carbon Dioxide (22-30) mmol/L Anion Gap (10-20) BUN (7-17) mg/dl Creatinine (0.7-1.2) mg/dl Est GFR ( Amer) Est GFR (Non-Af Amer) POC Glucose (mg/dL) (65-110) mg/dL Random Glucose (65-105) mg/dL Calcium (8.4-10.2) mg/dL Troponin I 0.0900 (0.00-0.120) ng/mL NT-Pro-B Natriuret Pep (0-900) pg/ml Arterial Blood Potassium (3.6-5.2) mmol/L Urine Color Yellow (YELLOW) Urine Clarity Slighty-cloudy (Clear) Urine pH 6.0 (5.0-8.0) Ur Specific [place] 1.009 (1.003-1.030) Urine Protein 30 (NEGATIVE) mg/dL Urine Glucose (UA) 150 (Normal) mg/dL Urine Ketones Negative (NEGATIVE) mg/dL Urine Blood Small (NEGATIVE) Urine Nitrate Negative (NEGATIVE) Urine Bilirubin Negative (NEGATIVE) Urine Urobilinogen 0.2-1.0 (0.2-1.0) mg/dL Ur Leukocyte Esterase Neg (Negative) J Carlos/uL Urine RBC (Auto) < 1 (0-3) /hpf Urine Microscopic WBC 1 (0-5) /hpf Ur Squamous Epith Cells < 1 (0-5) /hpf Amorphous Sediment Rare H (<OCC) /ul Urine Bacteria Rare (<OCC) Granular Casts (Auto) 1 (0-1) /lpf Laboratory Results - last 24 hr 10/11/17 10/11/17 10/11/17 10:58 15:08 15:14 WBC RBC Hgb Hct MCV MCH MCHC RDW Plt Count pCO2 45 pO2 62 L HCO3 23.6 ABG pH 7.34 L ABG Total CO2 25.7 ABG O2 Saturation 92.9 L ABG O2 Content 13.3 L ABG Base Excess -1.6 ABG Hemoglobin 10.3 L ABG Carboxyhemoglobin 0.3 L POC ABG HHb (Measured) 7.0 H ABG Methemoglobin 1.0 ABG O2 Capacity 14.3 L Michael Test Yes ABG Potassium A-a O2 Difference 167.0 Hgb O2 Saturation 91.7 L Glucose Lactate FiO2 40.0 Sodium Potassium Chloride Carbon Dioxide Anion Gap BUN Creatinine Est GFR ( Amer) Est GFR (Non-Af Amer) POC Glucose (mg/dL) Random Glucose Calcium Troponin I 0.0900 NT-Pro-B Natriuret Pep Arterial Blood Potassium Urine Color Yellow Urine Clarity Slighty-cloudy Urine pH 6.0 Ur Specific [place] 1.009 Urine Protein 30 Urine Glucose (UA) 150 Urine Ketones Negative Urine Blood Small Urine Nitrate Negative Urine Bilirubin Negative Urine Urobilinogen 0.2-1.0 Ur Leukocyte Esterase Neg Urine RBC (Auto) < 1 Urine Microscopic WBC 1 Ur Squamous Epith Cells < 1 Amorphous Sediment Rare H Urine Bacteria Rare Granular Casts (Auto) 1 10/11/17 10/11/17 10/12/17 16:32 21:42 04:15 WBC 13.1 H RBC 3.32 L Hgb 10.2 L Hct 31.4 L MCV 94.4 MCH 30.6 MCHC 32.4 L RDW 13.8 Plt Count 201 pCO2 pO2 HCO3 ABG pH ABG Total CO2 ABG O2 Saturation ABG O2 Content ABG Base Excess ABG Hemoglobin ABG Carboxyhemoglobin POC ABG HHb (Measured) ABG Methemoglobin ABG O2 Capacity Michael Test ABG Potassium A-a O2 Difference Hgb O2 Saturation Glucose Lactate FiO2 Sodium Potassium Chloride Carbon Dioxide Anion Gap BUN Creatinine Est GFR ( Amer) Est GFR (Non-Af Amer) POC Glucose (mg/dL) 143 H 186 H Random Glucose Calcium Troponin I NT-Pro-B Natriuret Pep Arterial Blood Potassium Urine Color Urine Clarity Urine pH Ur Specific [place] Urine Protein Urine Glucose (UA) Urine Ketones Urine Blood Urine Nitrate Urine Bilirubin Urine Urobilinogen Ur Leukocyte Esterase Urine RBC (Auto) Urine Microscopic WBC Ur Squamous Epith Cells Amorphous Sediment Urine Bacteria Granular Casts (Auto) 10/12/17 10/12/17 10/12/17 04:15 05:16 05:35 WBC RBC Hgb Hct MCV MCH MCHC RDW Plt Count pCO2 40 pO2 54 L HCO3 25.2 ABG pH 7.41 ABG Total CO2 26.6 ABG O2 Saturation 92.3 L ABG O2 Content ABG Base Excess 0.7 ABG Hemoglobin ABG Carboxyhemoglobin POC ABG HHb (Measured) ABG Methemoglobin ABG O2 Capacity Michael Test Yes ABG Potassium 3.5 L A-a O2 Difference 324.0 Hgb O2 Saturation Glucose 174 H Lactate 1.2 FiO2 60.0 Sodium 139 138.0 Potassium 3.9 Chloride 108 H 108.0 H Carbon Dioxide 24 Anion Gap 11 BUN 20 H Creatinine 0.9 Est GFR ( Amer) > 60 Est GFR (Non-Af Amer) 59 POC Glucose (mg/dL) 169 H Random Glucose 173 H Calcium 8.6 Troponin I NT-Pro-B Natriuret Pep 33805 H Arterial Blood Potassium 3.5 L Urine Color Urine Clarity Urine pH Ur Specific [place] Urine Protein Urine Glucose (UA) Urine Ketones Urine Blood Urine Nitrate Urine Bilirubin Urine Urobilinogen Ur Leukocyte Esterase Urine RBC (Auto) Urine Microscopic WBC Ur Squamous Epith Cells Amorphous Sediment Urine Bacteria Granular Casts (Auto) 10/12/17 10/12/17 11:07 13:44 WBC RBC Hgb Hct MCV MCH MCHC RDW Plt Count pCO2 38 pO2 47 L HCO3 27.0 ABG pH 7.46 H ABG Total CO2 28.2 H ABG O2 Saturation 88.3 L ABG O2 Content ABG Base Excess 3.1 H ABG Hemoglobin ABG Carboxyhemoglobin POC ABG HHb (Measured) ABG Methemoglobin ABG O2 Capacity Michael Test Yes ABG Potassium 3.3 L A-a O2 Difference 476.0 Hgb O2 Saturation Glucose 157 H Lactate 1.4 FiO2 80.0 Sodium 139.0 Potassium Chloride 107.0 Carbon Dioxide Anion Gap BUN Creatinine Est GFR ( Amer) Est GFR (Non-Af Amer) POC Glucose (mg/dL) 108 Random Glucose Calcium Troponin I NT-Pro-B Natriuret Pep Arterial Blood Potassium 3.3 L Urine Color Urine Clarity Urine pH Ur Specific [place] Urine Protein Urine Glucose (UA) Urine Ketones Urine Blood Urine Nitrate Urine Bilirubin Urine Urobilinogen Ur Leukocyte Esterase Urine RBC (Auto) Urine Microscopic WBC Ur Squamous Epith Cells Amorphous Sediment Urine Bacteria Granular Casts (Auto) Fingerstick Blood Sugar Results: 108 Review of Systems - Review of Systems Review of Systems: unable to assess due to Altered mental Status Critical Care Progress Note - Nutrition Nutrition: Nutrition Category Date Time Status NPO Diet [DIET] Diets 10/12/17 Breakfast Active Assessment/Plan - Assessment and Plan (Free Text) Assessment: 87 y/o F with PMHx of HTN, Hypercholesterolemia, DM with acute respiratory failure with hypoxia secondary to worsening pneumonia and Influenza A. Plan: l Acute hypoxemic respiratory failure secondary to multilobar bacterial pneumonia in superimposed Influenza infection -worsening pneumonia in repeated CXR, pending report -leukocytosis -repeat ABG -c/w high flow 40 L, FiO2 80% -c/w antibiotics: Cefepime, Linezolid, Azithromycin -Chest Ct done on 10/11/17 showed extensive diffuse bilateral alveolar-type infiltrates throughout the upper/lower lobes right greater than left -ID on consult, recs are appreciated -Pulmonology on consult, recs are appreciated -f/u respiratory status -if respiratory status continue to deteriorate patient will need mechanical ventilation -possible for Bronchoscopy by Dr. Christy tomorrow morning UTI -urine culture positive x Klebsiella -covered with current antibiotics Hypertension c/w current management Diabetes mellitus type 2 -c/w glycemic control DVT prophylaxis -lovenox SC - Date & Time Date: 10/12/17 Time: 09:00 <Reynaldo Ruiz - Last Filed: 10/12/17 17:41> CCU Objective - Vital Signs / Intake & Output Vital Signs (Last 4 hours): Vital Signs Temp Pulse Resp BP Pulse Ox 10/12/17 16:40 94 H 140/80 85 L 10/12/17 16:21 22 10/12/17 16:00 97.7 F 100 H 19 148/65 92 L 10/12/17 14:00 90 21 146/104 H 96 Intake and Output (Last 8hrs): Intake & Output 10/12/17 10/12/17 10/12/17 06:59 14:59 22:59 Intake Total 120 650 120 Output Total 650 0 Balance -530 650 120 Intake: IV 120 Intake, Piggyback 650 120 Output: Urine 650 Urethral (Jamil) 650 Emesis 0 - Medications Active Medications: Active Medications Generic Name Dose Route Start Last Admin Trade Name Freq PRN Reason Stop Dose Admin Acetaminophen 975 mg 10/11/17 20:15 Tylenol 325mg Tab PO ONCE PRN Fever >100.4 F Aspirin 325 mg 10/12/17 09:00 10/12/17 13:08 Aspirin PO Not Given DAILY [facility] Atorvastatin Calcium 20 mg 10/12/17 09:00 10/12/17 13:31 Lipitor PO 20 mg DAILY [facility] Administration Enoxaparin Sodium 30 mg 10/12/17 09:00 10/12/17 13:33 Lovenox SC Not Given DAILY [place] Protocol Glipizide 2.5 mg 10/12/17 07:30 10/12/17 09:30 Glucotrol Xl PO Not Given ACB [facility] Haloperidol Lactate 1 mg 10/11/17 20:15 Haldol IVP Q6 PRN Agitation Cefepime HCl 1 gm/ Sodium 100 mls @ 100 mls/hr 10/12/17 01:00 10/12/17 16:08 Chloride IVPB 100 mls/hr Q8 MI Administration Protocol Azithromycin 500 mg/ Sodium 250 mls @ 250 mls/hr 10/12/17 09:00 10/12/17 13: 01 Chloride IVPB 250 mls/hr DAILY [facility] Administration Protocol Linezolid 600 mg in 300 mls @ 300 mls/hr 10/11/17 21:00 10/12/17 10:42 Zyvox 600mg/300ml D5w IVPB 300 mls/hr Q12 MI Administration Protocol Propofol 1,000 mg in 100 mls @ 1.606 mls/hr 10/12/17 16:45 Diprivan IV 10/13/17 16:41 .Q24H MI Protocol 5 MCG/KG/MIN Insulin Human Lispro 0 units 10/11/17 22:00 10/12/17 13:00 Humalog SC Not Given ACHS [facility] Protocol Ipratropium [place] 0.5 mg 10/12/17 00:00 10/12/17 15:50 Atrovent IH 0.5 mg RQ4 [place] Administration Levalbuterol HCl 0.63 mg 10/12/17 00:00 10/12/17 15:50 Xopenex INH 0.63 mg RQ8 MI Administration Levothyroxine Sodium 50 mcg 10/12/17 06:30 10/12/17 06:44 Synthroid PO 50 mcg DAILY@0630 [place] Administration Metoprolol Tartrate 25 mg 10/11/17 21:00 10/12/17 13:31 Lopressor PO 25 mg Q12 MI Administration Pantoprazole Sodium 40 mg 10/13/17 09:00 Protonix Inj IVP DAILY [facility] - Patient Studies Lab Studies: Microbiology Studies 10/09/17 08:50 Gram Stain - Final Sputum Sputum Culture - Final NORMAL ORAL LINA 10/07/17 05:20 Blood Culture - Final Blood NO GROWTH AFTER 5 DAYS Gram Stain - Final TEST NOT PERFORMED 10/07/17 01:05 Blood Culture - Final Blood NO GROWTH AFTER 5 DAYS Gram Stain - Final TEST NOT PERFORMED Lab Studies 10/12/17 10/12/17 10/12/17 Range/Units 16:58 13:44 11:07 WBC (4.8-10.8) K/uL RBC (3.80-5.20) Mil/uL Hgb (12.0-16.0) g/dL Hct (34.0-47.0) % MCV (81.0-99.0) fl MCH (27.0-31.0) pg MCHC (33.0-37.0) g/dL RDW (11.5-14.5) % Plt Count (130-400) K/uL pCO2 38 (35-45) mm/Hg pO2 47 L (80-100) mm/Hg HCO3 27.0 (21-28) mmol/L ABG pH 7.46 H (7.35-7.45) ABG Total CO2 28.2 H (22-28) mmol/L ABG O2 Saturation 88.3 L (95-98) % ABG Base Excess 3.1 H (-2.0-3.0) mmol/L Michael Test Yes ABG Potassium 3.3 L (3.6-5.2) mmol/L A-a O2 Difference 476.0 mm/Hg Glucose 157 H (65-105) mg/dL Lactate 1.4 (0.7-2.1) mmol/L FiO2 80.0 % Sodium 139.0 (132-148) mmol/l Potassium (3.6-5.0) MMOL/L Chloride 107.0 (98-107) mmol/L Carbon Dioxide (22-30) mmol/L Anion Gap (10-20) BUN (7-17) mg/dl Creatinine (0.7-1.2) mg/dl Est GFR ( Amer) Est GFR (Non-Af Amer) POC Glucose (mg/dL) 117 H 108 (65-110) mg/dL Random Glucose (65-105) mg/dL Calcium (8.4-10.2) mg/dL NT-Pro-B Natriuret Pep (0-900) pg/ml Arterial Blood Potassium 3.3 L (3.6-5.2) mmol/L Urine Color (YELLOW) Urine Clarity (Clear) Urine pH (5.0-8.0) Ur Specific [place] (1.003-1.030) Urine Protein (NEGATIVE) mg/dL Urine Glucose (UA) (Normal) mg/dL Urine Ketones (NEGATIVE) mg/dL Urine Blood (NEGATIVE) Urine Nitrate (NEGATIVE) Urine Bilirubin (NEGATIVE) Urine Urobilinogen (0.2-1.0) mg/dL Ur Leukocyte Esterase (Negative) J Carlos/uL Urine RBC (Auto) (0-3) /hpf Urine Microscopic WBC (0-5) /hpf Ur Squamous Epith Cells (0-5) /hpf Amorphous Sediment (<OCC) /ul Urine Bacteria (<OCC) Granular Casts (Auto) (0-1) /lpf 10/12/17 10/12/17 10/12/17 Range/Units 05:35 05:16 04:15 WBC (4.8-10.8) K/uL RBC (3.80-5.20) Mil/uL Hgb (12.0-16.0) g/dL Hct (34.0-47.0) % MCV (81.0-99.0) fl MCH (27.0-31.0) pg MCHC (33.0-37.0) g/dL RDW (11.5-14.5) % Plt Count (130-400) K/uL pCO2 40 (35-45) mm/Hg pO2 54 L (80-100) mm/Hg HCO3 25.2 (21-28) mmol/L ABG pH 7.41 (7.35-7.45) ABG Total CO2 26.6 (22-28) mmol/L ABG O2 Saturation 92.3 L (95-98) % ABG Base Excess 0.7 (-2.0-3.0) mmol/L Michael Test Yes ABG Potassium 3.5 L (3.6-5.2) mmol/L A-a O2 Difference 324.0 mm/Hg Glucose 174 H (65-105) mg/dL Lactate 1.2 (0.7-2.1) mmol/L FiO2 60.0 % Sodium 138.0 139 (132-148) mmol/l Potassium 3.9 (3.6-5.0) MMOL/L Chloride 108.0 H 108 H (98-107) mmol/L Carbon Dioxide 24 (22-30) mmol/L Anion Gap 11 (10-20) BUN 20 H (7-17) mg/dl Creatinine 0.9 (0.7-1.2) mg/dl Est GFR ( Amer) > 60 Est GFR (Non-Af Amer) 59 POC Glucose (mg/dL) 169 H (65-110) mg/dL Random Glucose 173 H (65-105) mg/dL Calcium 8.6 (8.4-10.2) mg/dL NT-Pro-B Natriuret Pep 33741 H (0-900) pg/ml Arterial Blood Potassium 3.5 L (3.6-5.2) mmol/L Urine Color (YELLOW) Urine Clarity (Clear) Urine pH (5.0-8.0) Ur Specific [place] (1.003-1.030) Urine Protein (NEGATIVE) mg/dL Urine Glucose (UA) (Normal) mg/dL Urine Ketones (NEGATIVE) mg/dL Urine Blood (NEGATIVE) Urine Nitrate (NEGATIVE) Urine Bilirubin (NEGATIVE) Urine Urobilinogen (0.2-1.0) mg/dL Ur Leukocyte Esterase (Negative) J Carlos/uL Urine RBC (Auto) (0-3) /hpf Urine Microscopic WBC (0-5) /hpf Ur Squamous Epith Cells (0-5) /hpf Amorphous Sediment (<OCC) /ul Urine Bacteria (<OCC) Granular Casts (Auto) (0-1) /lpf 10/12/17 10/11/17 10/11/17 Range/Units 04:15 21:42 10:58 WBC 13.1 H (4.8-10.8) K/uL RBC 3.32 L (3.80-5.20) Mil/uL Hgb 10.2 L (12.0-16.0) g/dL Hct 31.4 L (34.0-47.0) % MCV 94.4 (81.0-99.0) fl MCH 30.6 (27.0-31.0) pg MCHC 32.4 L (33.0-37.0) g/dL RDW 13.8 (11.5-14.5) % Plt Count 201 (130-400) K/uL pCO2 (35-45) mm/Hg pO2 (80-100) mm/Hg HCO3 (21-28) mmol/L ABG pH (7.35-7.45) ABG Total CO2 (22-28) mmol/L ABG O2 Saturation (95-98) % ABG Base Excess (-2.0-3.0) mmol/L Michael Test ABG Potassium (3.6-5.2) mmol/L A-a O2 Difference mm/Hg Glucose (65-105) mg/dL Lactate (0.7-2.1) mmol/L FiO2 % Sodium (132-148) mmol/l Potassium (3.6-5.0) MMOL/L Chloride (98-107) mmol/L Carbon Dioxide (22-30) mmol/L Anion Gap (10-20) BUN (7-17) mg/dl Creatinine (0.7-1.2) mg/dl Est GFR ( Amer) Est GFR (Non-Af Amer) POC Glucose (mg/dL) 186 H (65-110) mg/dL Random Glucose (65-105) mg/dL Calcium (8.4-10.2) mg/dL NT-Pro-B Natriuret Pep (0-900) pg/ml Arterial Blood Potassium (3.6-5.2) mmol/L Urine Color Yellow (YELLOW) Urine Clarity Slighty-cloudy (Clear) Urine pH 6.0 (5.0-8.0) Ur Specific [place] 1.009 (1.003-1.030) Urine Protein 30 (NEGATIVE) mg/dL Urine Glucose (UA) 150 (Normal) mg/dL Urine Ketones Negative (NEGATIVE) mg/dL Urine Blood Small (NEGATIVE) Urine Nitrate Negative (NEGATIVE) Urine Bilirubin Negative (NEGATIVE) Urine Urobilinogen 0.2-1.0 (0.2-1.0) mg/dL Ur Leukocyte Esterase Neg (Negative) J Carlos/uL Urine RBC (Auto) < 1 (0-3) /hpf Urine Microscopic WBC 1 (0-5) /hpf Ur Squamous Epith Cells < 1 (0-5) /hpf Amorphous Sediment Rare H (<OCC) /ul Urine Bacteria Rare (<OCC) Granular Casts (Auto) 1 (0-1) /lpf Laboratory Results - last 24 hr 10/11/17 10/11/17 10/12/17 10:58 21:42 04:15 WBC 13.1 H RBC 3.32 L Hgb 10.2 L Hct 31.4 L MCV 94.4 MCH 30.6 MCHC 32.4 L RDW 13.8 Plt Count 201 pCO2 pO2 HCO3 ABG pH ABG Total CO2 ABG O2 Saturation ABG Base Excess Michael Test ABG Potassium A-a O2 Difference Glucose Lactate FiO2 Sodium Potassium Chloride Carbon Dioxide Anion Gap BUN Creatinine Est GFR ( Amer) Est GFR (Non-Af Amer) POC Glucose (mg/dL) 186 H Random Glucose Calcium NT-Pro-B Natriuret Pep Arterial Blood Potassium Urine Color Yellow Urine Clarity Slighty-cloudy Urine pH 6.0 Ur Specific [place] 1.009 Urine Protein 30 Urine Glucose (UA) 150 Urine Ketones Negative Urine Blood Small Urine Nitrate Negative Urine Bilirubin Negative Urine Urobilinogen 0.2-1.0 Ur Leukocyte Esterase Neg Urine RBC (Auto) < 1 Urine Microscopic WBC 1 Ur Squamous Epith Cells < 1 Amorphous Sediment Rare H Urine Bacteria Rare Granular Casts (Auto) 1 10/12/17 10/12/17 10/12/17 04:15 05:16 05:35 WBC RBC Hgb Hct MCV MCH MCHC RDW Plt Count pCO2 40 pO2 54 L HCO3 25.2 ABG pH 7.41 ABG Total CO2 26.6 ABG O2 Saturation 92.3 L ABG Base Excess 0.7 Michael Test Yes ABG Potassium 3.5 L A-a O2 Difference 324.0 Glucose 174 H Lactate 1.2 FiO2 60.0 Sodium 139 138.0 Potassium 3.9 Chloride 108 H 108.0 H Carbon Dioxide 24 Anion Gap 11 BUN 20 H Creatinine 0.9 Est GFR ( Amer) > 60 Est GFR (Non-Af Amer) 59 POC Glucose (mg/dL) 169 H Random Glucose 173 H Calcium 8.6 NT-Pro-B Natriuret Pep 13163 H Arterial Blood Potassium 3.5 L Urine Color Urine Clarity Urine pH Ur Specific [place] Urine Protein Urine Glucose (UA) Urine Ketones Urine Blood Urine Nitrate Urine Bilirubin Urine Urobilinogen Ur Leukocyte Esterase Urine RBC (Auto) Urine Microscopic WBC Ur Squamous Epith Cells Amorphous Sediment Urine Bacteria Granular Casts (Auto) 10/12/17 10/12/17 10/12/17 11:07 13:44 16:58 WBC RBC Hgb Hct MCV MCH MCHC RDW Plt Count pCO2 38 pO2 47 L HCO3 27.0 ABG pH 7.46 H ABG Total CO2 28.2 H ABG O2 Saturation 88.3 L ABG Base Excess 3.1 H Michael Test Yes ABG Potassium 3.3 L A-a O2 Difference 476.0 Glucose 157 H Lactate 1.4 FiO2 80.0 Sodium 139.0 Potassium Chloride 107.0 Carbon Dioxide Anion Gap BUN Creatinine Est GFR ( Amer) Est GFR (Non-Af Amer) POC Glucose (mg/dL) 108 117 H Random Glucose Calcium NT-Pro-B Natriuret Pep Arterial Blood Potassium 3.3 L Urine Color Urine Clarity Urine pH Ur Specific [place] Urine Protein Urine Glucose (UA) Urine Ketones Urine Blood Urine Nitrate Urine Bilirubin Urine Urobilinogen Ur Leukocyte Esterase Urine RBC (Auto) Urine Microscopic WBC Ur Squamous Epith Cells Amorphous Sediment Urine Bacteria Granular Casts (Auto) Critical Care Progress Note - Nutrition Nutrition: Nutrition Category Date Time Status NPO Diet [DIET] Diets 10/12/17 Breakfast Active Attending/Attestation - Attestation I have personally seen and examined this patient.: Yes I have fully participated in the care of the patient.: Yes I have reviewed all pertinent clinical information: Yes Notes (Text): 10/12/17 17:41 The patient was Seen/interviewed and examined by me at the bedside during ICU round, Medical records reviewed and Management issues were discussed and formulated with the house staff. Events reviewed I have reviewed all the relevant clinical, laboratory, hemodynamic, radiographic data and medications Pain issues, skin care, head of the bed elevation, glycemic control were addressed. I concur with resident's assessment and plan of care as transcribed in Dr. Mascorro note. Critically ill patient with worsening respiratory status, ABG done on FIO2 of 80 %, showing PaO2 of 47, she remains tachycardia, she was orally intubated and mechanically ventilated at 4:30PM PRVC AC14 TV400 FiO2 100% PEEP5 Afebrile, NSR on the monitor Last 24H I&O 1770/200 Started on proporol drip for sedations Resp nonlabored, few spontaneous resp noted Continue IV Antibiotics Avoid alkalemia and hyperoxia. Continue nebulizer treatment Continue diuretics as needed Strict I&O, negative fluid balance Aggressive pulmonary toilet, chest PT, suctioning # Stress Ulcer prophylaxis with Protonix 40 mg IVP QD # DVT prophylaxis with SCD, LWMH # Code Status: Full code Total critical care time 48 minutes
--- NOTE | 2017-10-12 14:18 | CP.PCM.PN ---
Subjective - Date & Time of Evaluation Date of Evaluation: 10/12/17 Time of Evaluation: 12:20 - Subjective Subjective: F/U Respiratory Distress. Patient with respiratory distress , intubation discussed with Surgical Technology Instructor Objective - Vital Signs/Intake and Output Vital Signs (last 24 hours): Temp Pulse Resp BP Pulse Ox 98.0 F 96 H 33 H 184/76 H 95 10/12/17 12:00 10/12/17 13:31 10/12/17 12:00 10/12/17 13:31 10/12/17 12:00 Intake and Output: 10/12/17 10/12/17 06:59 18:59 Intake Total 130 100 Output Total 750 0 Balance -620 100 - Medications Medications: Current Medications Acetaminophen (Tylenol 325mg Tab) 975 mg PO ONCE PRN PRN Reason: Fever >100.4 F Aspirin (Aspirin) 325 mg PO DAILY [facility] Last Admin: 10/12/17 13:08 Dose: Not Given Atorvastatin Calcium (Lipitor) 20 mg PO DAILY [facility] Last Admin: 10/12/17 13:31 Dose: 20 mg Enoxaparin Sodium (Lovenox) 30 mg SC DAILY [facility] PRN Reason: Protocol Last Admin: 10/12/17 13:33 Dose: Not Given Glipizide (Glucotrol Xl) 2.5 mg PO ACB [facility] Last Admin: 10/12/17 09:30 Dose: Not Given Haloperidol Lactate (Haldol) 1 mg IVP Q6 PRN PRN Reason: Agitation Cefepime HCl 1 gm/ Sodium (Chloride) 100 mls @ 100 mls/hr IVPB Q8 [facility] PRN Reason: Protocol Last Admin: 10/12/17 09:31 Dose: 100 mls/hr Azithromycin 500 mg/ Sodium (Chloride) 250 mls @ 250 mls/hr IVPB DAILY [facility] PRN Reason: Protocol Last Admin: 10/12/17 13:01 Dose: 250 mls/hr Linezolid (Zyvox 600mg/300ml D5w) 600 mg in 300 mls @ 300 mls/hr IVPB Q12 [place] PRN Reason: Protocol Last Admin: 10/12/17 10:42 Dose: 300 mls/hr Insulin Human Lispro (Humalog) 0 units SC ACHS [place] PRN Reason: Protocol Last Admin: 10/12/17 13:00 Dose: Not Given Ipratropium [place] (Atrovent) 0.5 mg IH RQ4 [facility] Last Admin: 10/12/17 08:17 Dose: 0.5 mg Levalbuterol HCl (Xopenex) 0.63 mg INH RQ8 [facility] Last Admin: 10/12/17 08:17 Dose: 0.63 mg Levothyroxine Sodium (Synthroid) 50 mcg PO DAILY@0630 [facility] Last Admin: 10/12/17 06:44 Dose: 50 mcg Metoprolol Tartrate (Lopressor) 25 mg PO Q12 [facility] Last Admin: 10/12/17 13:31 Dose: 25 mg - Labs Labs: 10/12/17 04:15 10/12/17 04:15 PT 16.1 Seconds (9.8-13.1) H 10/07/17 01:25 INR 1.4 (0.9-1.2) H 10/07/17 01:25 APTT 30.3 Seconds (25.6-37.1) 10/07/17 01:25 - Constitutional Appears: Chronically Ill - Head Exam Head Exam: NORMAL INSPECTION - Eye Exam Eye Exam: PERRL - ENT Exam ENT Exam: Normal Exam - Neck Exam Neck Exam: Normal Inspection - Respiratory Exam Respiratory Exam: Decreased Breath Sounds, Rhonchi - Cardiovascular Exam Cardiovascular Exam: REGULAR RHYTHM - GI/Abdominal Exam GI & Abdominal Exam: Soft, Normal Bowel Sounds - Extremities Exam Extremities Exam: Normal Inspection - Back Exam Back Exam: NORMAL INSPECTION - Neurological Exam Additional comments: confused, respiratory distress , no focal motor deficit - Skin Skin Exam: Warm Assessment and Plan (1) Pneumonia Status: Acute (2) Influenza A Status: Acute (3) Respiratory failure Status: Acute (4) Sepsis Status: Acute - Assessment and Plan (Free Text) Plan: intubation for Respiratory Failure, continue current treatment, consider FOB ICU Time: 40 min.
--- NOTE | 2017-10-12 14:52 | CARD ---
APPROVED REPORT EXAM: Two-dimensional and M-mode echocardiogram with Doppler and color Doppler. Other Information Quality : GoodRhythm : Tachycardia INDICATION Dyspnea 2D DIMENSIONS IVSd1.06 (0.7-1.1cm)LVDd4.04 (3.9-5.9cm) LVOT Diameter1.56 (1.8-2.4cm)PWd0.91 (0.7-1.1cm) IVSs1.46 (0.8-1.2cm)LVDs2.43 (2.5-4.0cm) FS (%) 39.7 %PWs1.25 (0.8-1.2cm) M-Mode DIMENSIONS Left Atrium (MM)3.42 (2.5-4.0cm)IVSd1.13 (0.7-1.1cm) Aortic Root2.93 (2.2-3.7cm)LVDd4.19 (4.0-5.6cm) Aortic Cusp Exc.1.83 (1.5-2.0cm)PWd1.06 (0.7-1.1cm) IVSs1.57 cmFS (%) 42 % LVDs2.44 (2.0-3.8cm)PWs1.36 cm Mitral Valve E/A ratio0.0 TDI E/Lateral E'0.0E/Medial E'0.0 Pulmonary Valve PV Peak Qxprsoxo443.2cm/s Tricuspid Valve TR Peak Pdbyiomy686qg/sRAP [id number] Peak Gr.29mmHg [id number] LEFT VENTRICLE The left ventricle is normal size. There is normal left ventricular wall thickness. The left ventricular function is normal. The left ventricular ejection fraction is within the normal range. The Ejection Fraction is 60-65%. There is normal LV segmental wall motion. The left ventricular diastolic function is normal. RIGHT VENTRICLE The right ventricle is normal size. The right ventricular systolic function is normal. ATRIA The left atrium size is normal. The right atrium size is normal. AORTIC VALVE The aortic valve is normal in structure. No aortic regurgitation is present. There is no aortic valvular stenosis. MITRAL VALVE The mitral valve is normal in structure. There is no mitral valve stenosis. Mitral regurgitation is trace to mild. TRICUSPID VALVE The tricuspid valve is normal in structure. Right ventricular systolic pressure is estimated at 39 mmHg. There is no tricuspid valve stenosis. PULMONIC VALVE The pulmonary valve is normal in structure. There is no pulmonic valvular regurgitation. There is no pulmonic valvular stenosis. GREAT VESSELS The aortic root is normal in size. The IVC is normal in size and collapses >50% with inspiration. PERICARDIAL EFFUSION The pericardium appears normal. <Conclusion> The left ventricle is normal size. The left ventricular function is normal. The left ventricular ejection fraction is within the normal range. The Ejection Fraction is 60-65%. . Mitral regurgitation is trace to mild.
[2017-10-12] MEDS ORDERED: Midazolam 2 MG/2 ML VIAL ONE (16:27)
[2017-10-12] MEDS ORDERED: Propofol 10 mg/ml 2,000 MG/200 ML VIAL ONE (16:31)
[2017-10-12] MEDS ORDERED: Midazolam 2 MG/2 ML VIAL IV ONE (16:38)
[2017-10-12] MEDS ORDERED: Succinylcholine 200 mg/10 ml Inj IV ONE (16:40)
--- NOTE | 2017-10-12 16:40 | PCM.ANES ---
Anesthesia Emergent Intubation - Diagnosis Working Diagnosis:: respiratory distress - Consult Reason for Consult:: Flu, resp distress - Pre-Intubation Vital Signs Blood Pressure: 140/80 Heart Rate: 94 O2 Sat: 85 Oxygen Delivery Method: Ambu-Bag Level Of Consciousness: Restless Intubation Meds Given: Versed, Succinylcholine - Airway Management Oropharyngeal Area Suctioned: Yes Rapid Sequence: Yes Cricoid Pressure: Yes - Method of Intubation ETT Size: 7.5 Lipline@: 21 Easy: Yes Atramatic: Yes - Intubation Devices Sheila Blade Size Used: 3 Bobby Forcepts Used: No [place] Scope Used: No Fiber Optic Scope: No - Placement Confirmation Breath Sounds Present & Equal Bilaterally: Yes Positive EtCO2: Yes Portable CXR: Yes Recommendations: Ventilator, Chest X Ray, ABG
--- NOTE | 2017-10-12 18:19 | RAD ---
PROCEDURE: CHEST RADIOGRAPH, 1 VIEW HISTORY: s/p postintubation COMPARISON: October 12, 2017. Time of the most recent examination: 05:34 FINDINGS: LUNGS: Persistent multifocal infiltrates unchanged. PLEURA: No pneumothorax or pleural fluid seen. CARDIOVASCULAR: No radiographic findings to suggest acute or significant cardiovascular disease. OSSEOUS STRUCTURES: No significant abnormalities. VISUALIZED UPPER ABDOMEN: Normal. OTHER FINDINGS: Satisfactory position of endotracheal tube. The tip approximately 2 cm above the emmanuel. IMPRESSION: Satisfactory position of recently placed endotracheal tube. Stable severe multifocal infiltrates.
[2017-10-12 18:21] LABS: ABG ALLEN TEST YES; ARTERIAL BLOOD GAS HCO3 26.5 mmol/L (21-28); ARTERIAL BLOOD GAS O2 SAT 98.4 % (95-98); ARTERIAL BLOOD GAS PCO2 50 mm/Hg (35-45); ARTERIAL BLOOD GAS PH 7.36 (7.35-7.45); ARTERIAL BLOOD GAS PO2 220 mm/Hg (80-100); ARTERIAL BLOOD GAS TCO2 29.7 mmol/L (22-28)
[2017-10-12] MEDS: Propofol 10 mg/ml 1,000 MG/100 ML VIAL IV SCH (18:57)
[2017-10-13] MEDS: Ipratropium 0.02% Inhal Soln (0.5 mg/2.5 ml) UD IH SCH ×6 (00:03→20:10)
[2017-10-13] MEDS: Levalbuterol 0.63 MG/3 ML Inhal Soln UD INH SCH ×3 (00:03→16:10)
[2017-10-13] MEDS: Cefepime 1 GM in Sodium Chloride 0.9% 100 ML IVPB SCH ×3 (01:17→16:30)
[2017-10-13 04:29] LABS: ABG ALLEN TEST YES; ARTERIAL BLOOD GAS HCO3 27.4 mmol/L (21-28); ARTERIAL BLOOD GAS HEMOGLOBIN 9.4 g/dL (11.7-17.4); ARTERIAL BLOOD GAS O2 CAPACITY 13.5 mL/dL (16-24); ARTERIAL BLOOD GAS O2 CONTENT 13.3 ML/dL (15-23); ARTERIAL BLOOD GAS O2 SAT 98.8 % (95-98); ARTERIAL BLOOD GAS PCO2 37 mm/Hg (35-45); ARTERIAL BLOOD GAS PH 7.47 (7.35-7.45); ARTERIAL BLOOD GAS PO2 158 mm/Hg (80-100)
[2017-10-13 05:27] LABS: BASO % 0.1 % (0.0-2.0); EOS # 0.2 K/uL (0.0-0.7); EOS % 1.6 % (0.0-4.0); HEMOGLOBIN 9.2 g/dL (12.0-16.0); LYMPH % 8.6 % (20.0-40.0); MEAN CORPUSCULAR HEMOGLOBIN 30.4 pg (27.0-31.0); MEAN CORPUSCULAR HGB CONC 32.3 g/dL (33.0-37.0); MEAN PLATELET VOLUME 9.5 fl (7.2-11.7); MONO # 0.7 K/uL (0.0-0.8); MONO % 6.1 % (0.0-10.0); NEUT # 9.6 K/uL (1.8-7.0); NEUT % 83.6 % (50.0-75.0); NRBC % 0.1 % (0.0-0.0); RBC 3.02 Mil/uL (3.80-5.20); RED CELL DISTRIBUTION WIDTH 13.6 % (11.5-14.5); WHITE BLOOD COUNT 11.5 K/uL (4.8-10.8)
[2017-10-13 05:42] LABS: INR 1.7 (0.9-1.2); PARTIAL THROMBOPLASTIN TIME 33.2 Seconds (25.6-37.1); PROTHROMBIN TIME 18.8 Seconds (9.8-13.1)
[2017-10-13] MEDS: Levothyroxine 50 MCG TAB PO SCH (05:49)
[2017-10-13 05:55] LABS: ALB/GLOB RATIO 0.6 (1.0-2.1); ALBUMIN 2.3 g/dL (3.5-5.0); CALCIUM 8.3 mg/dL (8.4-10.2)
[2017-10-13] MEDS: GlipiZIDE 2.5 mg SR Tab PO SCH (09:12)
[2017-10-13] MEDS: Enoxaparin 30 mg Syringe SC SCH (09:17)
[2017-10-13] MEDS: Linezolid 600 mg in D5W 300 ml 600 MG/300 ML BAG IVPB SCH ×2 (09:19→21:29)
[2017-10-13] MEDS: Azithromycin 500 MG in Sodium Chloride 0.9% 250 ML IVPB SCH (09:19)
[2017-10-13] MEDS: Insulin Lispro (humaLOG) 100 Units/ml Inj SC SCH ×3 (11:42→21:39)
--- NOTE | 2017-10-13 11:43 | CP.CCUPN ---
<Heidi Mascorro - Last Filed: 10/13/17 17:23> CCU Subjective - Physician Review Subjective (Free Text): 10/13/17 87 y/o F with PMHX of HTN, HYpercholesterolemia, DM admitted with persistent cough, chest congestion, fevers for 2 days found to be Influenza positive with superimposed multilobar pneumonia. Yesterday decision for intubation and mechanical ventilation was made, because worsening respiratory status(ABG done on FIO2 of 80%, showing PaO2 of 47,and tachycardia). Yesterday started on proporol drip for sedation. PRVC AC 14 TV 400 FiO2 70 % PEEP 5. CXR post -intubation showed satisfactory position of endotracheal tube. Last 24 hours I &O reviewed. CXR this morning reviewed. Critical Care Time Spent (in minutes): 45 CCU Objective - Vital Signs / Intake & Output Vital Signs (Last 4 hours): Vital Signs Temp Pulse Resp BP Pulse Ox 10/13/17 11:00 74 19 110/55 L 100 10/13/17 10:00 80 23 126/53 L 100 10/13/17 09:16 77 105/54 L 10/13/17 09:00 77 18 105/54 L 100 10/13/17 08:00 98.4 F 73 54 H 110/44 L 100 Intake and Output (Last 8hrs): Intake & Output 10/12/17 10/13/17 10/13/17 22:59 06:59 14:59 Intake Total 154 24 650 Output Total 1000 200 Balance -846 -176 650 Intake: IV 2 Intake, Piggyback 152 24 650 Output: Urine 1000 200 Urethral (Jamil) 1000 200 Stool 0 Other: # Bowel Movements 0 0 - Physical Exam Head: Positive for: Atraumatic, Normocephalic. Negative for: Tenderness, Contusion Pupils: Positive for: PERRL. Negative for: Sluggish, Non-Reactive Extroacular Muscles: Negative for: Gaze Palsy, Entrapment Conjunctiva: Positive for: Normal. Negative for: Injected, Icteric Mouth: Positive for: Moist Mucous Membranes Nose (External): Positive for: Atraumatic Nose (Internal): Positive for: Normal Inspection Neck: Positive for: Trachea Midline. Negative for: Meningeal Signs, MIDLINE TENDERNESS, Paraspinal Tenderness, JVD, Lymphadenopathy, Bruit, Other Respiratory/Chest: Positive for: Wheezes, Decreased Breath Sounds, Rhonchi ( diffuse and bilateral). Negative for: Clear to Auscultation, Good Air Exchange , Respiratory Distress, Accessory Muscle Use (scant bilateral), Rales, Tender to Palpation Cardiovascular: Positive for: Regular Rate and Rhythm, Normal S1, S2, Peripheal Pulses Present. Negative for: Murmurs, Irregular Rhythm, Tachycardic Abdomen: Positive for: Normal Bowel Sounds. Negative for: Tenderness, Distention, Peritoneal Signs Upper Extremity: Positive for: Normal Inspection, Normal ROM, NORMAL PULSES, Capillary Refill < 2s. Negative for: Cyanosis, Edema Lower Extremity: Positive for: Edema (in lower extremities), NORMAL PULSES, Capillary Refill < 2 s Skin: Positive for: Warm, Dry Psychiatric: Positive for: Other (Intubated and sedated). Negative for: Alert, Oriented x 3 - Medications Active Medications: Active Medications Generic Name Dose Route Start Last Admin Trade Name Freq PRN Reason Stop Dose Admin Acetaminophen 975 mg 10/11/17 20:15 Tylenol 325mg Tab PO ONCE PRN Fever >100.4 F Aspirin 325 mg 10/12/17 09:00 10/13/17 09:12 Aspirin PO Not Given DAILY PENDING SALE TO [facility] Atorvastatin Calcium 20 mg 10/12/17 09:00 10/13/17 09:13 Lipitor PO Not Given DAILY PENDING SALE TO [facility] Enoxaparin Sodium 30 mg 10/12/17 09:00 10/13/17 09:17 Lovenox SC Not Given DAILY PENDING SALE TO [facility] Protocol Glipizide 2.5 mg 10/12/17 07:30 10/13/17 09:12 Glucotrol Xl PO Not Given ACB PENDING SALE TO [facility] Haloperidol Lactate 1 mg 10/11/17 20:15 Haldol IVP Q6 PRN Agitation Cefepime HCl 1 gm/ Sodium 100 mls @ 100 mls/hr 10/12/17 01:00 10/13/17 09:18 Chloride IVPB 100 mls/hr Q8 MI Administration Protocol Azithromycin 500 mg/ Sodium 250 mls @ 250 mls/hr 10/12/17 09:00 10/13/17 09: 19 Chloride IVPB 250 mls/hr DAILY MI Administration Protocol Linezolid 600 mg in 300 mls @ 300 mls/hr 10/11/17 21:00 10/13/17 09:19 Zyvox 600mg/300ml D5w IVPB 300 mls/hr Q12 MI Administration Protocol Propofol 1,000 mg in 100 mls @ 1.606 mls/hr 10/12/17 16:45 10/12/17 20:00 Diprivan IV 10/13/17 16:41 10 mcg/kg/min .Q24H MI 3.211 mls/hr Protocol Titration 5 MCG/KG/MIN Insulin Human Lispro 0 units 10/11/17 22:00 10/12/17 21:45 Humalog SC Not Given ACHS PENDING SALE TO [facility] Protocol Ipratropium [place] 0.5 mg 10/12/17 00:00 10/13/17 11:30 Atrovent IH 0.5 mg RQ4 MI Administration Levalbuterol HCl 0.63 mg 10/12/17 00:00 10/13/17 08:00 Xopenex INH 0.63 mg RQ8 MI Administration Levothyroxine Sodium 50 mcg 10/12/17 06:30 10/13/17 05:49 Synthroid PO Not Given DAILY@0630 PENDING SALE TO [facility] Metoprolol Tartrate 25 mg 10/11/17 21:00 10/13/17 09:16 Lopressor PO 25 mg Q12 MI Administration Pantoprazole Sodium 40 mg 10/13/17 09:00 10/13/17 09:18 Protonix Inj IVP 40 mg DAILY MI Administration - Patient Studies Lab Studies: Microbiology Studies 10/09/17 08:50 Gram Stain - Final Sputum Sputum Culture - Final NORMAL ORAL LINA 10/07/17 05:20 Blood Culture - Final Blood NO GROWTH AFTER 5 DAYS Gram Stain - Final TEST NOT PERFORMED 10/07/17 01:05 Blood Culture - Final Blood NO GROWTH AFTER 5 DAYS Gram Stain - Final TEST NOT PERFORMED Lab Studies 10/13/17 10/13/17 10/13/17 Range/Units 11:11 05:02 04:20 WBC (4.8-10.8) K/uL RBC (3.80-5.20) Mil/uL Hgb (12.0-16.0) g/dL Hct (34.0-47.0) % MCV (81.0-99.0) fl MCH (27.0-31.0) pg MCHC (33.0-37.0) g/dL RDW (11.5-14.5) % Plt Count (130-400) K/uL MPV (7.2-11.7) fl Neut % (Auto) (50.0-75.0) % Lymph % (Auto) (20.0-40.0) % Davidson % (Auto) (0.0-10.0) % Eos % (Auto) (0.0-4.0) % Baso % (Auto) (0.0-2.0) % Neut # (Auto) (1.8-7.0) K/uL Lymph # (Auto) (1.0-4.3) K/uL [place] # (Auto) (0.0-0.8) K/uL Eos # (Auto) (0.0-0.7) K/uL Baso # (Auto) (0.0-0.2) K/uL PT (9.8-13.1) Seconds INR (0.9-1.2) APTT (25.6-37.1) Seconds pCO2 37 (35-45) mm/Hg pO2 158 H (80-100) mm/Hg HCO3 27.4 (21-28) mmol/L ABG pH 7.47 H (7.35-7.45) ABG Total CO2 28.0 (22-28) mmol/L ABG O2 Saturation 98.8 H (95-98) % ABG O2 Content 13.3 L (15-23) ML/dL ABG Base Excess 3.1 H (-2.0-3.0) mmol/L ABG Hemoglobin 9.4 L (11.7-17.4) g/dL ABG Carboxyhemoglobin 0 L (0.5-1.5) % POC ABG HHb (Measured) 1.2 (0.0-5.0) % ABG Methemoglobin 0.7 (0.0-3.0) % ABG O2 Capacity 13.5 L (16-24) mL/dL Michael Test Yes ABG Potassium (3.6-5.2) mmol/L A-a O2 Difference 366.0 mm/Hg Hgb O2 Saturation 98.1 H (95.0-98.0) % Sodium (132-148) mmol/L Chloride (98-107) mmol/L Glucose (65-105) mg/dL Lactate (0.7-2.1) mmol/L Vent Mode A/c Mechanical Rate 14 FiO2 80.0 % Tidal Volume 400 PEEP 5 Potassium (3.6-5.0) MMOL/L Carbon Dioxide (22-30) mmol/L Anion Gap (10-20) BUN (7-17) mg/dl Creatinine (0.7-1.2) mg/dl Est GFR ( Amer) Est GFR (Non-Af Amer) POC Glucose (mg/dL) 97 126 H (65-110) mg/dL Random Glucose (65-105) mg/dL Calcium (8.4-10.2) mg/dL Total Bilirubin (0.2-1.3) mg/dl AST (14-36) U/L ALT (9-52) U/L Alkaline Phosphatase (38-126) U/L Total Protein (6.3-8.2) G/DL Albumin (3.5-5.0) g/dL Globulin (2.2-3.9) gm/dL Albumin/Globulin Ratio (1.0-2.1) Arterial Blood Potassium (3.6-5.2) mmol/L 10/13/17 10/13/17 10/13/17 Range/Units 04:15 04:15 04:15 WBC 11.5 H (4.8-10.8) K/uL RBC 3.02 L (3.80-5.20) Mil/uL Hgb 9.2 L (12.0-16.0) g/dL Hct 28.4 L (34.0-47.0) % MCV 94.0 (81.0-99.0) fl MCH 30.4 (27.0-31.0) pg MCHC 32.3 L (33.0-37.0) g/dL RDW 13.6 (11.5-14.5) % Plt Count 220 (130-400) K/uL MPV 9.5 (7.2-11.7) fl Neut % (Auto) 83.6 H (50.0-75.0) % Lymph % (Auto) 8.6 L (20.0-40.0) % Davidson % (Auto) 6.1 (0.0-10.0) % Eos % (Auto) 1.6 (0.0-4.0) % Baso % (Auto) 0.1 (0.0-2.0) % Neut # (Auto) 9.6 H (1.8-7.0) K/uL Lymph # (Auto) 1.0 (1.0-4.3) K/uL [place] # (Auto) 0.7 (0.0-0.8) K/uL Eos # (Auto) 0.2 (0.0-0.7) K/uL Baso # (Auto) 0.0 (0.0-0.2) K/uL PT 18.8 H (9.8-13.1) Seconds INR 1.7 H (0.9-1.2) APTT 33.2 (25.6-37.1) Seconds pCO2 (35-45) mm/Hg pO2 (80-100) mm/Hg HCO3 (21-28) mmol/L ABG pH (7.35-7.45) ABG Total CO2 (22-28) mmol/L ABG O2 Saturation (95-98) % ABG O2 Content (15-23) ML/dL ABG Base Excess (-2.0-3.0) mmol/L ABG Hemoglobin (11.7-17.4) g/dL ABG Carboxyhemoglobin (0.5-1.5) % POC ABG HHb (Measured) (0.0-5.0) % ABG Methemoglobin (0.0-3.0) % ABG O2 Capacity (16-24) mL/dL Michael Test ABG Potassium (3.6-5.2) mmol/L A-a O2 Difference mm/Hg Hgb O2 Saturation (95.0-98.0) % Sodium 142 (132-148) mmol/L Chloride 105 (98-107) mmol/L Glucose (65-105) mg/dL Lactate (0.7-2.1) mmol/L Vent Mode Mechanical Rate FiO2 % Tidal Volume PEEP Potassium 3.6 (3.6-5.0) MMOL/L Carbon Dioxide 28 (22-30) mmol/L Anion Gap 13 (10-20) BUN 24 H (7-17) mg/dl Creatinine 1.3 H (0.7-1.2) mg/dl Est GFR ( Amer) 47 Est GFR (Non-Af Amer) 39 POC Glucose (mg/dL) (65-110) mg/dL Random Glucose 117 H (65-105) mg/dL Calcium 8.3 L (8.4-10.2) mg/dL Total Bilirubin 0.9 (0.2-1.3) mg/dl AST 66 H D (14-36) U/L ALT 61 H D (9-52) U/L Alkaline Phosphatase 119 (38-126) U/L Total Protein 6.0 L (6.3-8.2) G/DL Albumin 2.3 L (3.5-5.0) g/dL Globulin 3.7 (2.2-3.9) gm/dL Albumin/Globulin Ratio 0.6 L (1.0-2.1) Arterial Blood Potassium (3.6-5.2) mmol/L 10/12/17 10/12/17 10/12/17 Range/Units 21:14 18:15 16:58 WBC (4.8-10.8) K/uL RBC (3.80-5.20) Mil/uL Hgb (12.0-16.0) g/dL Hct (34.0-47.0) % MCV (81.0-99.0) fl MCH (27.0-31.0) pg MCHC (33.0-37.0) g/dL RDW (11.5-14.5) % Plt Count (130-400) K/uL MPV (7.2-11.7) fl Neut % (Auto) (50.0-75.0) % Lymph % (Auto) (20.0-40.0) % [place] % (Auto) (0.0-10.0) % Eos % (Auto) (0.0-4.0) % Baso % (Auto) (0.0-2.0) % Neut # (Auto) (1.8-7.0) K/uL Lymph # (Auto) (1.0-4.3) K/uL [place] # (Auto) (0.0-0.8) K/uL Eos # (Auto) (0.0-0.7) K/uL Baso # (Auto) (0.0-0.2) K/uL PT (9.8-13.1) Seconds INR (0.9-1.2) APTT (25.6-37.1) Seconds pCO2 50 H (35-45) mm/Hg pO2 220 H (80-100) mm/Hg HCO3 26.5 (21-28) mmol/L ABG pH 7.36 (7.35-7.45) ABG Total CO2 29.7 H (22-28) mmol/L ABG O2 Saturation 98.4 H (95-98) % ABG O2 Content (15-23) ML/dL ABG Base Excess 1.9 (-2.0-3.0) mmol/L ABG Hemoglobin (11.7-17.4) g/dL ABG Carboxyhemoglobin (0.5-1.5) % POC ABG HHb (Measured) (0.0-5.0) % ABG Methemoglobin (0.0-3.0) % ABG O2 Capacity (16-24) mL/dL Michael Test Yes ABG Potassium 3.3 L (3.6-5.2) mmol/L A-a O2 Difference 431.0 mm/Hg Hgb O2 Saturation (95.0-98.0) % Sodium 137.0 (132-148) mmol/L Chloride 107.0 (98-107) mmol/L Glucose 107 H (65-105) mg/dL Lactate 1.5 (0.7-2.1) mmol/L Vent Mode Mechanical Rate FiO2 100.0 % Tidal Volume PEEP Potassium (3.6-5.0) MMOL/L Carbon Dioxide (22-30) mmol/L Anion Gap (10-20) BUN (7-17) mg/dl Creatinine (0.7-1.2) mg/dl Est GFR ( Amer) Est GFR (Non-Af Amer) POC Glucose (mg/dL) 92 117 H (65-110) mg/dL Random Glucose (65-105) mg/dL Calcium (8.4-10.2) mg/dL Total Bilirubin (0.2-1.3) mg/dl AST (14-36) U/L ALT (9-52) U/L Alkaline Phosphatase (38-126) U/L Total Protein (6.3-8.2) G/DL Albumin (3.5-5.0) g/dL Globulin (2.2-3.9) gm/dL Albumin/Globulin Ratio (1.0-2.1) Arterial Blood Potassium 3.3 L (3.6-5.2) mmol/L 10/12/17 Range/Units 13:44 WBC (4.8-10.8) K/uL RBC (3.80-5.20) Mil/uL Hgb (12.0-16.0) g/dL Hct (34.0-47.0) % MCV (81.0-99.0) fl MCH (27.0-31.0) pg MCHC (33.0-37.0) g/dL RDW (11.5-14.5) % Plt Count (130-400) K/uL MPV (7.2-11.7) fl Neut % (Auto) (50.0-75.0) % Lymph % (Auto) (20.0-40.0) % [place] % (Auto) (0.0-10.0) % Eos % (Auto) (0.0-4.0) % Baso % (Auto) (0.0-2.0) % Neut # (Auto) (1.8-7.0) K/uL Lymph # (Auto) (1.0-4.3) K/uL [place] # (Auto) (0.0-0.8) K/uL Eos # (Auto) (0.0-0.7) K/uL Baso # (Auto) (0.0-0.2) K/uL PT (9.8-13.1) Seconds INR (0.9-1.2) APTT (25.6-37.1) Seconds pCO2 38 (35-45) mm/Hg pO2 47 L (80-100) mm/Hg HCO3 27.0 (21-28) mmol/L ABG pH 7.46 H (7.35-7.45) ABG Total CO2 28.2 H (22-28) mmol/L ABG O2 Saturation 88.3 L (95-98) % ABG O2 Content (15-23) ML/dL ABG Base Excess 3.1 H (-2.0-3.0) mmol/L ABG Hemoglobin (11.7-17.4) g/dL ABG Carboxyhemoglobin (0.5-1.5) % POC ABG HHb (Measured) (0.0-5.0) % ABG Methemoglobin (0.0-3.0) % ABG O2 Capacity (16-24) mL/dL Michael Test Yes ABG Potassium 3.3 L (3.6-5.2) mmol/L A-a O2 Difference 476.0 mm/Hg Hgb O2 Saturation (95.0-98.0) % Sodium 139.0 (132-148) mmol/L Chloride 107.0 (98-107) mmol/L Glucose 157 H (65-105) mg/dL Lactate 1.4 (0.7-2.1) mmol/L Vent Mode Mechanical Rate FiO2 80.0 % Tidal Volume PEEP Potassium (3.6-5.0) MMOL/L Carbon Dioxide (22-30) mmol/L Anion Gap (10-20) BUN (7-17) mg/dl Creatinine (0.7-1.2) mg/dl Est GFR ( Amer) Est GFR (Non-Af Amer) POC Glucose (mg/dL) (65-110) mg/dL Random Glucose (65-105) mg/dL Calcium (8.4-10.2) mg/dL Total Bilirubin (0.2-1.3) mg/dl AST (14-36) U/L ALT (9-52) U/L Alkaline Phosphatase (38-126) U/L Total Protein (6.3-8.2) G/DL Albumin (3.5-5.0) g/dL Globulin (2.2-3.9) gm/dL Albumin/Globulin Ratio (1.0-2.1) Arterial Blood Potassium 3.3 L (3.6-5.2) mmol/L Laboratory Results - last 24 hr 10/12/17 10/12/17 10/12/17 13:44 16:58 18:15 WBC RBC Hgb Hct MCV MCH MCHC RDW Plt Count MPV Neut % (Auto) Lymph % (Auto) [place] % (Auto) Eos % (Auto) Baso % (Auto) Neut # (Auto) Lymph # (Auto) [place] # (Auto) Eos # (Auto) Baso # (Auto) PT INR APTT pCO2 38 50 H pO2 47 L 220 H HCO3 27.0 26.5 ABG pH 7.46 H 7.36 ABG Total CO2 28.2 H 29.7 H ABG O2 Saturation 88.3 L 98.4 H ABG O2 Content ABG Base Excess 3.1 H 1.9 ABG Hemoglobin ABG Carboxyhemoglobin POC ABG HHb (Measured) ABG Methemoglobin ABG O2 Capacity Michael Test Yes Yes ABG Potassium 3.3 L 3.3 L A-a O2 Difference 476.0 431.0 Hgb O2 Saturation Sodium 139.0 137.0 Chloride 107.0 107.0 Glucose 157 H 107 H Lactate 1.4 1.5 Vent Mode Mechanical Rate FiO2 80.0 100.0 Tidal Volume PEEP Potassium Carbon Dioxide Anion Gap BUN Creatinine Est GFR ( Amer) Est GFR (Non-Af Amer) POC Glucose (mg/dL) 117 H Random Glucose Calcium Total Bilirubin AST ALT Alkaline Phosphatase Total Protein Albumin Globulin Albumin/Globulin Ratio Arterial Blood Potassium 3.3 L 3.3 L 10/12/17 10/13/17 10/13/17 21:14 04:15 04:15 WBC 11.5 H RBC 3.02 L Hgb 9.2 L Hct 28.4 L MCV 94.0 MCH 30.4 MCHC 32.3 L RDW 13.6 Plt Count 220 MPV 9.5 Neut % (Auto) 83.6 H Lymph % (Auto) 8.6 L [place] % (Auto) 6.1 Eos % (Auto) 1.6 Baso % (Auto) 0.1 Neut # (Auto) 9.6 H Lymph # (Auto) 1.0 Davidson # (Auto) 0.7 Eos # (Auto) 0.2 Baso # (Auto) 0.0 PT INR APTT pCO2 pO2 HCO3 ABG pH ABG Total CO2 ABG O2 Saturation ABG O2 Content ABG Base Excess ABG Hemoglobin ABG Carboxyhemoglobin POC ABG HHb (Measured) ABG Methemoglobin ABG O2 Capacity Michael Test ABG Potassium A-a O2 Difference Hgb O2 Saturation Sodium 142 Chloride 105 Glucose Lactate Vent Mode Mechanical Rate FiO2 Tidal Volume PEEP Potassium 3.6 Carbon Dioxide 28 Anion Gap 13 BUN 24 H Creatinine 1.3 H Est GFR ( Amer) 47 Est GFR (Non-Af Amer) 39 POC Glucose (mg/dL) 92 Random Glucose 117 H Calcium 8.3 L Total Bilirubin 0.9 AST 66 H D ALT 61 H D Alkaline Phosphatase 119 Total Protein 6.0 L Albumin 2.3 L Globulin 3.7 Albumin/Globulin Ratio 0.6 L Arterial Blood Potassium 10/13/17 10/13/17 10/13/17 04:15 04:20 05:02 WBC RBC Hgb Hct MCV MCH MCHC RDW Plt Count MPV Neut % (Auto) Lymph % (Auto) [place] % (Auto) Eos % (Auto) Baso % (Auto) Neut # (Auto) Lymph # (Auto) [place] # (Auto) Eos # (Auto) Baso # (Auto) PT 18.8 H INR 1.7 H APTT 33.2 pCO2 37 pO2 158 H HCO3 27.4 ABG pH 7.47 H ABG Total CO2 28.0 ABG O2 Saturation 98.8 H ABG O2 Content 13.3 L ABG Base Excess 3.1 H ABG Hemoglobin 9.4 L ABG Carboxyhemoglobin 0 L POC ABG HHb (Measured) 1.2 ABG Methemoglobin 0.7 ABG O2 Capacity 13.5 L Michael Test Yes ABG Potassium A-a O2 Difference 366.0 Hgb O2 Saturation 98.1 H Sodium Chloride Glucose Lactate Vent Mode A/c Mechanical Rate 14 FiO2 80.0 Tidal Volume 400 PEEP 5 Potassium Carbon Dioxide Anion Gap BUN Creatinine Est GFR ( Amer) Est GFR (Non-Af Amer) POC Glucose (mg/dL) 126 H Random Glucose Calcium Total Bilirubin AST ALT Alkaline Phosphatase Total Protein Albumin Globulin Albumin/Globulin Ratio Arterial Blood Potassium 10/13/17 11:11 WBC RBC Hgb Hct MCV MCH MCHC RDW Plt Count MPV Neut % (Auto) Lymph % (Auto) [place] % (Auto) Eos % (Auto) Baso % (Auto) Neut # (Auto) Lymph # (Auto) Davidson # (Auto) Eos # (Auto) Baso # (Auto) PT INR APTT pCO2 pO2 HCO3 ABG pH ABG Total CO2 ABG O2 Saturation ABG O2 Content ABG Base Excess ABG Hemoglobin ABG Carboxyhemoglobin POC ABG HHb (Measured) ABG Methemoglobin ABG O2 Capacity Michael Test ABG Potassium A-a O2 Difference Hgb O2 Saturation Sodium Chloride Glucose Lactate Vent Mode Mechanical Rate FiO2 Tidal Volume PEEP Potassium Carbon Dioxide Anion Gap BUN Creatinine Est GFR ( Amer) Est GFR (Non-Af Amer) POC Glucose (mg/dL) 97 Random Glucose Calcium Total Bilirubin AST ALT Alkaline Phosphatase Total Protein Albumin Globulin Albumin/Globulin Ratio Arterial Blood Potassium Fingerstick Blood Sugar Results: 97 Review of Systems - Review of Systems Review of Systems: unable to asses because patient is intubated and sedated. Critical Care Progress Note - Nutrition Nutrition: Nutrition Category Date Time Status NPO Diet [DIET] Diets 10/12/17 Breakfast Active Assessment/Plan - Assessment and Plan (Free Text) Plan: Acute hypoxemic respiratory failure secondary to Bacterial Pneumonia in superimposed Influenza infection -s/p post-endotracheal tube placement on 10/12/17 and Mechanical ventilation -PRVC AC 14 TV 400 FiO2 70 % PEEP 5 -Afebrile -DC isolation/ completed Tamiflu treatment -c/w antibiotics as per ID -Linezolid 600 mg IVPB Q12 -cefepime 1 gm IVPB Q8 -Azithromycin 500 mg IVPB daily -IV fluids maintenance -c/w chest PT and suctioning -c/w nebulizer treatment -f/u CBC, Coag panel, ABG, CXR in AM -CXR post -intubation on 10/12/17 showed satisfactory position of endotracheal tube. Stable severe multifocal infiltrates. -ID on consult, f/u recs -Pulmonology on consult, f/u recs -awaiting for possible Bronchoscopy by Pulmonology, Dr. Christy UTI -urine culture positive x Klebsiella -covered with current antibiotics -f/u BMP in AM Hypertension -controlled in no meds now -BP in low levels. SBP: 100-110s -on sedation/mechanical ventilation Diabetes mellitus type 2 -c/w glycemic control Diet -Glucerna by OG tube/ continuous Prophylaxis -stress ulcer prophylaxis with protonix 40 mg IV QD -DVT prophylaxis with SCDs and lovenox - Date & Time Date: 10/13/17 Time: 09:00 <Bryant Faria - Last Filed: 10/13/17 18:55> CCU Subjective - Physician Review Subjective (Free Text): Attestation: Patient seen and examined at the bedside with Resident Dr. Woody Mascorro; and I agree with her outline of plans and management documented above as discussed on AM rounds reflecting my review of all applicable clinical data, and participation in the care of the patient throughout the day in ICU; October. Time spent with this patient did not overlap with any other provider's medical or critical care time. Additionally the code selected for the services rendered in this note includes the time spent: talking to the patients family, associated physicians and reviewing hospital data/results not listed here which extended to a total of 45 minutes. CCU Objective - Medications Active Medications: Active Medications Generic Name Dose Route Start Last Admin Trade Name Freq PRN Reason Stop Dose Admin Acetaminophen 975 mg 10/11/17 20:15 Tylenol 325mg Tab PO ONCE PRN Fever >100.4 F Aspirin 325 mg 10/12/17 09:00 10/13/17 09:12 Aspirin PO Not Given DAILY MI Atorvastatin Calcium 20 mg 10/12/17 09:00 10/13/17 09:13 Lipitor PO Not Given DAILY MI Enoxaparin Sodium 30 mg 10/12/17 09:00 10/13/17 09:17 Lovenox SC Not Given DAILY MI Protocol Glipizide 2.5 mg 10/12/17 07:30 10/13/17 09:12 Glucotrol Xl PO Not Given ACB MI Haloperidol Lactate 1 mg 10/11/17 20:15 Haldol IVP Q6 PRN Agitation Cefepime HCl 1 gm/ Sodium 100 mls @ 100 mls/hr 10/12/17 01:00 10/13/17 16:30 Chloride IVPB 100 mls/hr Q8 MI Administration Protocol Azithromycin 500 mg/ Sodium 250 mls @ 250 mls/hr 10/12/17 09:00 10/13/17 09: 19 Chloride IVPB 250 mls/hr DAILY MI Administration Protocol Linezolid 600 mg in 300 mls @ 300 mls/hr 10/11/17 21:00 10/13/17 09:19 Zyvox 600mg/300ml D5w IVPB 300 mls/hr Q12 MI Administration Protocol Sodium Chloride 1,000 mls @ 95 mls/hr 10/13/17 12:30 10/13/17 14:18 Sodium Chloride 0.9% IV 10/14/17 12:25 95 mls/hr .[id number] MI Administration Insulin Human Lispro 0 units 10/11/17 22:00 10/13/17 18:24 Humalog SC Not Given ACHS MI Protocol Ipratropium [place] 0.5 mg 10/12/17 00:00 10/13/17 16:10 Atrovent IH 0.5 mg RQ4 MI Administration Levalbuterol HCl 0.63 mg 10/12/17 00:00 10/13/17 16:10 Xopenex INH 0.63 mg RQ8 MI Administration Levothyroxine Sodium 50 mcg 10/12/17 06:30 10/13/17 05:49 Synthroid PO Not Given DAILY@0630 PENDING SALE TO [facility] Metoprolol Tartrate 25 mg 10/11/17 21:00 10/13/17 09:16 Lopressor PO 25 mg Q12 MI Administration Pantoprazole Sodium 40 mg 10/13/17 09:00 10/13/17 09:18 Protonix Inj IVP 40 mg DAILY MI Administration - Patient Studies Lab Studies: Microbiology Studies 10/11/17 10:58 Urine Culture - Final Urine,Catheterized No Growth (<1,000 CFU/ML) Lab Studies 10/13/17 10/13/17 10/13/17 Range/Units 17:01 11:11 05:02 WBC (4.8-10.8) K/uL RBC (3.80-5.20) Mil/uL Hgb (12.0-16.0) g/dL Hct (34.0-47.0) % MCV (81.0-99.0) fl MCH (27.0-31.0) pg MCHC (33.0-37.0) g/dL RDW (11.5-14.5) % Plt Count (130-400) K/uL MPV (7.2-11.7) fl Neut % (Auto) (50.0-75.0) % Lymph % (Auto) (20.0-40.0) % Davidson % (Auto) (0.0-10.0) % Eos % (Auto) (0.0-4.0) % Baso % (Auto) (0.0-2.0) % Neut # (Auto) (1.8-7.0) K/uL Lymph # (Auto) (1.0-4.3) K/uL Davidson # (Auto) (0.0-0.8) K/uL Eos # (Auto) (0.0-0.7) K/uL Baso # (Auto) (0.0-0.2) K/uL PT (9.8-13.1) Seconds INR (0.9-1.2) APTT (25.6-37.1) Seconds pCO2 (35-45) mm/Hg pO2 (80-100) mm/Hg HCO3 (21-28) mmol/L ABG pH (7.35-7.45) ABG Total CO2 (22-28) mmol/L ABG O2 Saturation (95-98) % ABG O2 Content (15-23) ML/dL ABG Base Excess (-2.0-3.0) mmol/L ABG Hemoglobin (11.7-17.4) g/dL ABG Carboxyhemoglobin (0.5-1.5) % POC ABG HHb (Measured) (0.0-5.0) % ABG Methemoglobin (0.0-3.0) % ABG O2 Capacity (16-24) mL/dL Michael Test A-a O2 Difference mm/Hg Hgb O2 Saturation (95.0-98.0) % Vent Mode Mechanical Rate FiO2 % Tidal Volume PEEP Sodium (132-148) mmol/l Potassium (3.6-5.0) MMOL/L Chloride (98-107) mmol/L Carbon Dioxide (22-30) mmol/L Anion Gap (10-20) BUN (7-17) mg/dl Creatinine (0.7-1.2) mg/dl Est GFR ( Amer) Est GFR (Non-Af Amer) POC Glucose (mg/dL) 129 H 97 126 H (65-110) mg/dL Random Glucose (65-105) mg/dL Calcium (8.4-10.2) mg/dL Total Bilirubin (0.2-1.3) mg/dl AST (14-36) U/L ALT (9-52) U/L Alkaline Phosphatase (38-126) U/L Total Protein (6.3-8.2) G/DL Albumin (3.5-5.0) g/dL Globulin (2.2-3.9) gm/dL Albumin/Globulin Ratio (1.0-2.1) 10/13/17 10/13/17 10/13/17 Range/Units 04:20 04:15 04:15 WBC (4.8-10.8) K/uL RBC (3.80-5.20) Mil/uL Hgb (12.0-16.0) g/dL Hct (34.0-47.0) % MCV (81.0-99.0) fl MCH (27.0-31.0) pg MCHC (33.0-37.0) g/dL RDW (11.5-14.5) % Plt Count (130-400) K/uL MPV (7.2-11.7) fl Neut % (Auto) (50.0-75.0) % Lymph % (Auto) (20.0-40.0) % Davidson % (Auto) (0.0-10.0) % Eos % (Auto) (0.0-4.0) % Baso % (Auto) (0.0-2.0) % Neut # (Auto) (1.8-7.0) K/uL Lymph # (Auto) (1.0-4.3) K/uL Davidson # (Auto) (0.0-0.8) K/uL Eos # (Auto) (0.0-0.7) K/uL Baso # (Auto) (0.0-0.2) K/uL PT 18.8 H (9.8-13.1) Seconds INR 1.7 H (0.9-1.2) APTT 33.2 (25.6-37.1) Seconds pCO2 37 (35-45) mm/Hg pO2 158 H (80-100) mm/Hg HCO3 27.4 (21-28) mmol/L ABG pH 7.47 H (7.35-7.45) ABG Total CO2 28.0 (22-28) mmol/L ABG O2 Saturation 98.8 H (95-98) % ABG O2 Content 13.3 L (15-23) ML/dL ABG Base Excess 3.1 H (-2.0-3.0) mmol/L ABG Hemoglobin 9.4 L (11.7-17.4) g/dL ABG Carboxyhemoglobin 0 L (0.5-1.5) % POC ABG HHb (Measured) 1.2 (0.0-5.0) % ABG Methemoglobin 0.7 (0.0-3.0) % ABG O2 Capacity 13.5 L (16-24) mL/dL Michael Test Yes A-a O2 Difference 366.0 mm/Hg Hgb O2 Saturation 98.1 H (95.0-98.0) % Vent Mode A/c Mechanical Rate 14 FiO2 80.0 % Tidal Volume 400 PEEP 5 Sodium 142 (132-148) mmol/l Potassium 3.6 (3.6-5.0) MMOL/L Chloride 105 (98-107) mmol/L Carbon Dioxide 28 (22-30) mmol/L Anion Gap 13 (10-20) BUN 24 H (7-17) mg/dl Creatinine 1.3 H (0.7-1.2) mg/dl Est GFR ( Amer) 47 Est GFR (Non-Af Amer) 39 POC Glucose (mg/dL) (65-110) mg/dL Random Glucose 117 H (65-105) mg/dL Calcium 8.3 L (8.4-10.2) mg/dL Total Bilirubin 0.9 (0.2-1.3) mg/dl AST 66 H D (14-36) U/L ALT 61 H D (9-52) U/L Alkaline Phosphatase 119 (38-126) U/L Total Protein 6.0 L (6.3-8.2) G/DL Albumin 2.3 L (3.5-5.0) g/dL Globulin 3.7 (2.2-3.9) gm/dL Albumin/Globulin Ratio 0.6 L (1.0-2.1) 10/13/17 10/12/17 Range/Units 04:15 21:14 WBC 11.5 H (4.8-10.8) K/uL RBC 3.02 L (3.80-5.20) Mil/uL Hgb 9.2 L (12.0-16.0) g/dL Hct 28.4 L (34.0-47.0) % MCV 94.0 (81.0-99.0) fl MCH 30.4 (27.0-31.0) pg MCHC 32.3 L (33.0-37.0) g/dL RDW 13.6 (11.5-14.5) % Plt Count 220 (130-400) K/uL MPV 9.5 (7.2-11.7) fl Neut % (Auto) 83.6 H (50.0-75.0) % Lymph % (Auto) 8.6 L (20.0-40.0) % Davidson % (Auto) 6.1 (0.0-10.0) % Eos % (Auto) 1.6 (0.0-4.0) % Baso % (Auto) 0.1 (0.0-2.0) % Neut # (Auto) 9.6 H (1.8-7.0) K/uL Lymph # (Auto) 1.0 (1.0-4.3) K/uL Davidson # (Auto) 0.7 (0.0-0.8) K/uL Eos # (Auto) 0.2 (0.0-0.7) K/uL Baso # (Auto) 0.0 (0.0-0.2) K/uL PT (9.8-13.1) Seconds INR (0.9-1.2) APTT (25.6-37.1) Seconds pCO2 (35-45) mm/Hg pO2 (80-100) mm/Hg HCO3 (21-28) mmol/L ABG pH (7.35-7.45) ABG Total CO2 (22-28) mmol/L ABG O2 Saturation (95-98) % ABG O2 Content (15-23) ML/dL ABG Base Excess (-2.0-3.0) mmol/L ABG Hemoglobin (11.7-17.4) g/dL ABG Carboxyhemoglobin (0.5-1.5) % POC ABG HHb (Measured) (0.0-5.0) % ABG Methemoglobin (0.0-3.0) % ABG O2 Capacity (16-24) mL/dL Michael Test A-a O2 Difference mm/Hg Hgb O2 Saturation (95.0-98.0) % Vent Mode Mechanical Rate FiO2 % Tidal Volume PEEP Sodium (132-148) mmol/l Potassium (3.6-5.0) MMOL/L Chloride (98-107) mmol/L Carbon Dioxide (22-30) mmol/L Anion Gap (10-20) BUN (7-17) mg/dl Creatinine (0.7-1.2) mg/dl Est GFR ( Amer) Est GFR (Non-Af Amer) POC Glucose (mg/dL) 92 (65-110) mg/dL Random Glucose (65-105) mg/dL Calcium (8.4-10.2) mg/dL Total Bilirubin (0.2-1.3) mg/dl AST (14-36) U/L ALT (9-52) U/L Alkaline Phosphatase (38-126) U/L Total Protein (6.3-8.2) G/DL Albumin (3.5-5.0) g/dL Globulin (2.2-3.9) gm/dL Albumin/Globulin Ratio (1.0-2.1) Laboratory Results - last 24 hr 10/12/17 10/13/17 10/13/17 21:14 04:15 04:15 WBC 11.5 H RBC 3.02 L Hgb 9.2 L Hct 28.4 L MCV 94.0 MCH 30.4 MCHC 32.3 L RDW 13.6 Plt Count 220 MPV 9.5 Neut % (Auto) 83.6 H Lymph % (Auto) 8.6 L Davidson % (Auto) 6.1 Eos % (Auto) 1.6 Baso % (Auto) 0.1 Neut # (Auto) 9.6 H Lymph # (Auto) 1.0 Davidson # (Auto) 0.7 Eos # (Auto) 0.2 Baso # (Auto) 0.0 PT INR APTT pCO2 pO2 HCO3 ABG pH ABG Total CO2 ABG O2 Saturation ABG O2 Content ABG Base Excess ABG Hemoglobin ABG Carboxyhemoglobin POC ABG HHb (Measured) ABG Methemoglobin ABG O2 Capacity Michael Test A-a O2 Difference Hgb O2 Saturation Vent Mode Mechanical Rate FiO2 Tidal Volume PEEP Sodium 142 Potassium 3.6 Chloride 105 Carbon Dioxide 28 Anion Gap 13 BUN 24 H Creatinine 1.3 H Est GFR ( Amer) 47 Est GFR (Non-Af Amer) 39 POC Glucose (mg/dL) 92 Random Glucose 117 H Calcium 8.3 L Total Bilirubin 0.9 AST 66 H D ALT 61 H D Alkaline Phosphatase 119 Total Protein 6.0 L Albumin 2.3 L Globulin 3.7 Albumin/Globulin Ratio 0.6 L 10/13/17 10/13/17 10/13/17 04:15 04:20 05:02 WBC RBC Hgb Hct MCV MCH MCHC RDW Plt Count MPV Neut % (Auto) Lymph % (Auto) Davidson % (Auto) Eos % (Auto) Baso % (Auto) Neut # (Auto) Lymph # (Auto) Davidson # (Auto) Eos # (Auto) Baso # (Auto) PT 18.8 H INR 1.7 H APTT 33.2 pCO2 37 pO2 158 H HCO3 27.4 ABG pH 7.47 H ABG Total CO2 28.0 ABG O2 Saturation 98.8 H ABG O2 Content 13.3 L ABG Base Excess 3.1 H ABG Hemoglobin 9.4 L ABG Carboxyhemoglobin 0 L POC ABG HHb (Measured) 1.2 ABG Methemoglobin 0.7 ABG O2 Capacity 13.5 L Michael Test Yes A-a O2 Difference 366.0 Hgb O2 Saturation 98.1 H Vent Mode A/c Mechanical Rate 14 FiO2 80.0 Tidal Volume 400 PEEP 5 Sodium Potassium Chloride Carbon Dioxide Anion Gap BUN Creatinine Est GFR ( Amer) Est GFR (Non-Af Amer) POC Glucose (mg/dL) 126 H Random Glucose Calcium Total Bilirubin AST ALT Alkaline Phosphatase Total Protein Albumin Globulin Albumin/Globulin Ratio 10/13/17 10/13/17 11:11 17:01 WBC RBC Hgb Hct MCV MCH MCHC RDW Plt Count MPV Neut % (Auto) Lymph % (Auto) Davidson % (Auto) Eos % (Auto) Baso % (Auto) Neut # (Auto) Lymph # (Auto) Davidson # (Auto) Eos # (Auto) Baso # (Auto) PT INR APTT pCO2 pO2 HCO3 ABG pH ABG Total CO2 ABG O2 Saturation ABG O2 Content ABG Base Excess ABG Hemoglobin ABG Carboxyhemoglobin POC ABG HHb (Measured) ABG Methemoglobin ABG O2 Capacity Michael Test A-a O2 Difference Hgb O2 Saturation Vent Mode Mechanical Rate FiO2 Tidal Volume PEEP Sodium Potassium Chloride Carbon Dioxide Anion Gap BUN Creatinine Est GFR ( Amer) Est GFR (Non-Af Amer) POC Glucose (mg/dL) 97 129 H Random Glucose Calcium Total Bilirubin AST ALT Alkaline Phosphatase Total Protein Albumin Globulin Albumin/Globulin Ratio
[2017-10-13] MEDS ORDERED: Sodium Chloride 3% for Inhalation 4 ML VIAL.NEB IH PRN (14:13)
[2017-10-13] MEDS: Sodium Chloride 0.9% 1,000 ML IV SCH (14:18)
--- NOTE | 2017-10-13 14:19 | CP.PCM.PN ---
Subjective - Date & Time of Evaluation Date of Evaluation: 10/13/17 Time of Evaluation: 09:00 - Subjective Subjective: intubated sedated Objective - Vital Signs/Intake and Output Vital Signs (last 24 hours): Temp Pulse Resp BP Pulse Ox 98.4 F 77 21 110/42 L 100 10/13/17 12:00 10/13/17 14:00 10/13/17 14:00 10/13/17 14:00 10/13/17 14:00 Intake and Output: 10/13/17 10/13/17 06:59 18:59 Intake Total 38 650 Output Total 200 Balance -162 650 - Medications Medications: Current Medications Acetaminophen (Tylenol 325mg Tab) 975 mg PO ONCE PRN PRN Reason: Fever >100.4 F Aspirin (Aspirin) 325 mg PO DAILY [facility] Last Admin: 10/13/17 09:12 Dose: Not Given Atorvastatin Calcium (Lipitor) 20 mg PO DAILY [facility] Last Admin: 10/13/17 09:13 Dose: Not Given Enoxaparin Sodium (Lovenox) 30 mg SC DAILY [place] PRN Reason: Protocol Last Admin: 10/13/17 09:17 Dose: Not Given Glipizide (Glucotrol Xl) 2.5 mg PO ACB [place] Last Admin: 10/13/17 09:12 Dose: Not Given Haloperidol Lactate (Haldol) 1 mg IVP Q6 PRN PRN Reason: Agitation Cefepime HCl 1 gm/ Sodium (Chloride) 100 mls @ 100 mls/hr IVPB Q8 [place] PRN Reason: Protocol Last Admin: 10/13/17 09:18 Dose: 100 mls/hr Azithromycin 500 mg/ Sodium (Chloride) 250 mls @ 250 mls/hr IVPB DAILY [place] PRN Reason: Protocol Last Admin: 10/13/17 09:19 Dose: 250 mls/hr Linezolid (Zyvox 600mg/300ml D5w) 600 mg in 300 mls @ 300 mls/hr IVPB Q12 [place] PRN Reason: Protocol Last Admin: 10/13/17 09:19 Dose: 300 mls/hr Propofol (Diprivan) 1,000 mg in 100 mls @ 1.606 mls/hr IV .Q24H MI; 5 MCG/KG/ MIN PRN Reason: Protocol Stop: 10/13/17 16:41 Last Titration: 10/12/17 20:00 Dose: 10 mcg/kg/min, 3.211 mls/hr Sodium Chloride (Sodium Chloride 0.9%) 1,000 mls @ 95 mls/hr IV .[id number] [facility] Stop: 10/14/17 12:25 Insulin Human Lispro (Humalog) 0 units SC ACHS [facility] PRN Reason: Protocol Last Admin: 10/13/17 11:42 Dose: Not Given Ipratropium [place] (Atrovent) 0.5 mg IH RQ4 [facility] Last Admin: 10/13/17 11:30 Dose: 0.5 mg Levalbuterol HCl (Xopenex) 0.63 mg INH RQ8 [facility] Last Admin: 10/13/17 08:00 Dose: 0.63 mg Levothyroxine Sodium (Synthroid) 50 mcg PO DAILY@0630 [facility] Last Admin: 10/13/17 05:49 Dose: Not Given Metoprolol Tartrate (Lopressor) 25 mg PO Q12 [facility] Last Admin: 10/13/17 09:16 Dose: 25 mg Pantoprazole Sodium (Protonix Inj) 40 mg IVP DAILY [facility] Last Admin: 10/13/17 09:18 Dose: 40 mg - Labs Labs: 10/13/17 04:15 10/13/17 04:15 PT 18.8 Seconds (9.8-13.1) H 10/13/17 04:15 INR 1.7 (0.9-1.2) H 10/13/17 04:15 APTT 33.2 Seconds (25.6-37.1) 10/13/17 04:15 - Constitutional Appears: Cachectic, Chronically Ill - Head Exam Head Exam: NORMOCEPHALIC - Eye Exam Eye Exam: PERRL - ENT Exam ENT Exam: Mucous Membranes Dry - Neck Exam Neck Exam: absent: Lymphadenopathy - Respiratory Exam Respiratory Exam: Decreased Breath Sounds, Rales, Rhonchi - Cardiovascular Exam Cardiovascular Exam: Tachycardia, REGULAR RHYTHM, +S1, +S2 - GI/Abdominal Exam GI & Abdominal Exam: Distended, Soft - Rectal Exam Rectal Exam: Deferred - Exam Exam: NORMAL INSPECTION - Extremities Exam Extremities Exam: absent: Pedal Edema - Back Exam Back Exam: absent: CVA tenderness (L), CVA tenderness (R) - Neurological Exam Neurological Exam: Altered - Psychiatric Exam Psychiatric exam: Normal Mood - Skin Skin Exam: Dry Assessment and Plan (1) Influenza Status: Acute (2) Pneumonia Status: Acute (3) Sepsis Status: Acute (4) UTI (urinary tract infection) Status: Acute
[2017-10-13] MEDS: Propofol 10 mg/ml 1,000 MG/100 ML VIAL IV SCH ×2 (15:03→22:38)
--- NOTE | 2017-10-13 15:36 | RAD ---
HISTORY: on mech. vent COMPARISON: Comparison is made with 10/12/2017 FINDINGS: LUNGS: Interval mild improvement in the previously seen bilateral patchy opacities and airspace consolidations. The ET tube is seen at appropriate position. PLEURA: Blunting of the right costophrenic angle is again noted CARDIOVASCULAR: Normal. OSSEOUS STRUCTURES: Diffuse osteopenia is noted. VISUALIZED UPPER ABDOMEN: There is NG tube extending to the abdomen. OTHER FINDINGS: None. IMPRESSION: Interval [id number] improvement in the lungs since the previous exam. Continuous follow-up reassessment is recommended. Appropriate
--- NOTE | 2017-10-13 16:39 | CP.PCM.PN ---
Subjective - Date & Time of Evaluation Date of Evaluation: 10/13/17 Time of Evaluation: 14:00 - Subjective Subjective: F/U Respiratory Distress, PNA/ Influenza A Intubated , sedated Objective - Vital Signs/Intake and Output Vital Signs (last 24 hours): Temp Pulse Resp BP Pulse Ox 97.8 F 76 21 115/46 L 100 10/13/17 16:00 10/13/17 16:00 10/13/17 15:00 10/13/17 16:00 10/13/17 16:00 Intake and Output: 10/13/17 10/13/17 06:59 18:59 Intake Total 38 848 Output Total 200 Balance -162 848 - Medications Medications: Current Medications Acetaminophen (Tylenol 325mg Tab) 975 mg PO ONCE PRN PRN Reason: Fever >100.4 F Aspirin (Aspirin) 325 mg PO DAILY [facility] Last Admin: 10/13/17 09:12 Dose: Not Given Atorvastatin Calcium (Lipitor) 20 mg PO DAILY [facility] Last Admin: 10/13/17 09:13 Dose: Not Given Enoxaparin Sodium (Lovenox) 30 mg SC DAILY [facility] PRN Reason: Protocol Last Admin: 10/13/17 09:17 Dose: Not Given Glipizide (Glucotrol Xl) 2.5 mg PO ACB [facility] Last Admin: 10/13/17 09:12 Dose: Not Given Haloperidol Lactate (Haldol) 1 mg IVP Q6 PRN PRN Reason: Agitation Cefepime HCl 1 gm/ Sodium (Chloride) 100 mls @ 100 mls/hr IVPB Q8 [place] PRN Reason: Protocol Last Admin: 10/13/17 16:30 Dose: 100 mls/hr Azithromycin 500 mg/ Sodium (Chloride) 250 mls @ 250 mls/hr IVPB DAILY [place] PRN Reason: Protocol Last Admin: 10/13/17 09:19 Dose: 250 mls/hr Linezolid (Zyvox 600mg/300ml D5w) 600 mg in 300 mls @ 300 mls/hr IVPB Q12 [place] PRN Reason: Protocol Last Admin: 10/13/17 09:19 Dose: 300 mls/hr Propofol (Diprivan) 1,000 mg in 100 mls @ 1.606 mls/hr IV .Q24H MI; 5 MCG/KG/ MIN PRN Reason: Protocol Stop: 10/13/17 16:41 Last Admin: 10/13/17 15:03 Dose: 10 mcg/kg/min, 3.211 mls/hr Sodium Chloride (Sodium Chloride 0.9%) 1,000 mls @ 95 mls/hr IV .[id number] [facility] Stop: 10/14/17 12:25 Last Admin: 10/13/17 14:18 Dose: 95 mls/hr Insulin Human Lispro (Humalog) 0 units SC ACHS [facility] PRN Reason: Protocol Last Admin: 10/13/17 11:42 Dose: Not Given Ipratropium [place] (Atrovent) 0.5 mg IH RQ4 [facility] Last Admin: 10/13/17 16:10 Dose: 0.5 mg Levalbuterol HCl (Xopenex) 0.63 mg INH RQ8 [facility] Last Admin: 10/13/17 16:10 Dose: 0.63 mg Levothyroxine Sodium (Synthroid) 50 mcg PO DAILY@0630 [facility] Last Admin: 10/13/17 05:49 Dose: Not Given Metoprolol Tartrate (Lopressor) 25 mg PO Q12 [facility] Last Admin: 10/13/17 09:16 Dose: 25 mg Pantoprazole Sodium (Protonix Inj) 40 mg IVP DAILY [facility] Last Admin: 10/13/17 09:18 Dose: 40 mg - Labs Labs: 10/13/17 04:15 10/13/17 04:15 PT 18.8 Seconds (9.8-13.1) H 10/13/17 04:15 INR 1.7 (0.9-1.2) H 10/13/17 04:15 APTT 33.2 Seconds (25.6-37.1) 10/13/17 04:15 - Constitutional Appears: Chronically Ill - Head Exam Head Exam: NORMAL INSPECTION - Eye Exam Eye Exam: PERRL - ENT Exam Additional comments: Intubated. - Neck Exam Neck Exam: Normal Inspection - Respiratory Exam Respiratory Exam: Decreased Breath Sounds, Rhonchi, Wheezes - Cardiovascular Exam Cardiovascular Exam: REGULAR RHYTHM - GI/Abdominal Exam GI & Abdominal Exam: Soft, Normal Bowel Sounds - Extremities Exam Extremities Exam: Normal Inspection - Back Exam Back Exam: NORMAL INSPECTION - Neurological Exam Additional comments: Intubated, sedated - Skin Skin Exam: Warm Assessment and Plan (1) Pneumonia Status: Acute (2) Influenza A Status: Acute (3) Respiratory failure Status: Acute (4) Sepsis Status: Acute - Assessment and Plan (Free Text) Plan: intubated ,sedated , CXR improving infiltrates , continue current Atb , FOB on hold , Respiratory Failure and PNA improved, FIO2 decreased to 70% , f/ u Bronchial Washing C-S ICU Time: 40 min.
--- NOTE | 2017-10-13 20:17 | PN ---
DATE: SUBJECTIVE: The patient is currently in ICU on mechanical ventilator and hemodynamically stable. PHYSICAL EXAMINATION: VITAL SIGNS: Blood pressure 115/46, heart rate 76, temperature 97.8, and respirations 21. HEENT: Pale conjunctivae. CHEST: Bilateral coarse crepitations. HEART: S1 and S2 regular. EXTREMITIES: Dinamap is applied to both legs. LABORATORY DATA: Today SMA-7; sodium 142, potassium 3.6, chloride 105, CO2 of 28, glucose 117, BUN 24, and creatinine 1.3. Hemoglobin and hematocrit 9.2 and 28.4, white count 11.5, and platelet count 220,000. Echocardiac study revealed ejection fraction in the range of 66% to 65%, normal left ventricular size, and [id number] mitral insufficiency. Today's chest x-ray report revealed interval [id number] improvement in the lungs since the previous exam. ASSESSMENT: 1. Bilateral pneumonia. 2. Respiratory failure. 3. Borderline troponin elevation. 4. Anemia. RECOMMENDATIONS: We will continue current IV Zyvox at 600 mg q.12 hours, IV cefepime at 1 g q.8 hours, IV Zithromax 500 mg to be given as needed, continue IV Protonix at 40 mg once a day. Oral medications including Lipitor, Lopressor, and Synthroid are being on hold and I will discuss that with the planner intern including aspirin. Mitchell Hollis MD
--- NOTE | 2017-10-14 00:38 | CP.PCM.PN ---
Subjective - Date & Time of Evaluation Date of Evaluation: 10/10/17 Objective - Vital Signs/Intake and Output Vital Signs (last 24 hours): Temp Pulse Resp BP Pulse Ox 97.8 F 78 19 101/36 L 100 10/13/17 16:00 10/13/17 21:22 10/13/17 18:00 10/13/17 21:22 10/13/17 18:00 Intake and Output: 10/13/17 10/14/17 18:59 06:59 Intake Total 848 Output Total 100 Balance 748 - Medications Medications: Current Medications Acetaminophen (Tylenol 325mg Tab) 975 mg PO ONCE PRN PRN Reason: Fever >100.4 F Aspirin (Aspirin) 325 mg PO DAILY [facility] Last Admin: 10/13/17 09:12 Dose: Not Given Atorvastatin Calcium (Lipitor) 20 mg PO DAILY [facility] Last Admin: 10/13/17 09:13 Dose: Not Given Enoxaparin Sodium (Lovenox) 30 mg SC DAILY [facility] PRN Reason: Protocol Last Admin: 10/13/17 09:17 Dose: Not Given Glipizide (Glucotrol Xl) 2.5 mg PO ACB [facility] Last Admin: 10/13/17 09:12 Dose: Not Given Haloperidol Lactate (Haldol) 1 mg IVP Q6 PRN PRN Reason: Agitation Cefepime HCl 1 gm/ Sodium (Chloride) 100 mls @ 100 mls/hr IVPB Q8 [place] PRN Reason: Protocol Last Admin: 10/13/17 16:30 Dose: 100 mls/hr Azithromycin 500 mg/ Sodium (Chloride) 250 mls @ 250 mls/hr IVPB DAILY [facility] PRN Reason: Protocol Last Admin: 10/13/17 09:19 Dose: 250 mls/hr Linezolid (Zyvox 600mg/300ml D5w) 600 mg in 300 mls @ 300 mls/hr IVPB Q12 [place] PRN Reason: Protocol Last Admin: 10/13/17 21:29 Dose: 300 mls/hr Sodium Chloride (Sodium Chloride 0.9%) 1,000 mls @ 95 mls/hr IV .[id number] [facility] Stop: 10/14/17 12:25 Last Admin: 10/13/17 14:18 Dose: 95 mls/hr Propofol (Diprivan) 1,000 mg in 100 mls @ 1.606 mls/hr IV .Q24H MI; 5 MCG/KG/ MIN PRN Reason: Protocol Stop: 10/14/17 22:23 Last Admin: 10/13/17 22:38 Dose: 10 mcg/kg/min, 3.211 mls/hr Insulin Human Lispro (Humalog) 0 units SC ACHS [place] PRN Reason: Protocol Last Admin: 10/13/17 21:39 Dose: Not Given Ipratropium [place] (Atrovent) 0.5 mg IH RQ4 [facility] Last Admin: 10/13/17 20:10 Dose: 0.5 mg Levalbuterol HCl (Xopenex) 0.63 mg INH RQ8 [facility] Last Admin: 10/13/17 16:10 Dose: 0.63 mg Levothyroxine Sodium (Synthroid) 50 mcg PO DAILY@0630 [facility] Last Admin: 10/13/17 05:49 Dose: Not Given Metoprolol Tartrate (Lopressor) 25 mg PO Q12 [facility] Last Admin: 10/13/17 21:22 Dose: 25 mg Pantoprazole Sodium (Protonix Inj) 40 mg IVP DAILY [facility] Last Admin: 10/13/17 09:18 Dose: 40 mg - Labs Labs: 10/13/17 04:15 10/13/17 04:15 PT 18.8 Seconds (9.8-13.1) H 10/13/17 04:15 INR 1.7 (0.9-1.2) H 10/13/17 04:15 APTT 33.2 Seconds (25.6-37.1) 10/13/17 04:15
--- NOTE | 2017-10-14 00:39 | CP.PCM.PN ---
Subjective - Date & Time of Evaluation Date of Evaluation: 10/09/17 Objective - Vital Signs/Intake and Output Vital Signs (last 24 hours): Temp Pulse Resp BP Pulse Ox 97.8 F 78 19 101/36 L 100 10/13/17 16:00 10/13/17 21:22 10/13/17 18:00 10/13/17 21:22 10/13/17 18:00 Intake and Output: 10/13/17 10/14/17 18:59 06:59 Intake Total 848 Output Total 100 Balance 748 - Medications Medications: Current Medications Acetaminophen (Tylenol 325mg Tab) 975 mg PO ONCE PRN PRN Reason: Fever >100.4 F Aspirin (Aspirin) 325 mg PO DAILY [facility] Last Admin: 10/13/17 09:12 Dose: Not Given Atorvastatin Calcium (Lipitor) 20 mg PO DAILY [facility] Last Admin: 10/13/17 09:13 Dose: Not Given Enoxaparin Sodium (Lovenox) 30 mg SC DAILY [facility] PRN Reason: Protocol Last Admin: 10/13/17 09:17 Dose: Not Given Glipizide (Glucotrol Xl) 2.5 mg PO ACB [facility] Last Admin: 10/13/17 09:12 Dose: Not Given Haloperidol Lactate (Haldol) 1 mg IVP Q6 PRN PRN Reason: Agitation Cefepime HCl 1 gm/ Sodium (Chloride) 100 mls @ 100 mls/hr IVPB Q8 [place] PRN Reason: Protocol Last Admin: 10/13/17 16:30 Dose: 100 mls/hr Azithromycin 500 mg/ Sodium (Chloride) 250 mls @ 250 mls/hr IVPB DAILY [facility] PRN Reason: Protocol Last Admin: 10/13/17 09:19 Dose: 250 mls/hr Linezolid (Zyvox 600mg/300ml D5w) 600 mg in 300 mls @ 300 mls/hr IVPB Q12 [place] PRN Reason: Protocol Last Admin: 10/13/17 21:29 Dose: 300 mls/hr Sodium Chloride (Sodium Chloride 0.9%) 1,000 mls @ 95 mls/hr IV .[id number] [facility] Stop: 10/14/17 12:25 Last Admin: 10/13/17 14:18 Dose: 95 mls/hr Propofol (Diprivan) 1,000 mg in 100 mls @ 1.606 mls/hr IV .Q24H MI; 5 MCG/KG/ MIN PRN Reason: Protocol Stop: 10/14/17 22:23 Last Admin: 10/13/17 22:38 Dose: 10 mcg/kg/min, 3.211 mls/hr Insulin Human Lispro (Humalog) 0 units SC ACHS [place] PRN Reason: Protocol Last Admin: 10/13/17 21:39 Dose: Not Given Ipratropium [place] (Atrovent) 0.5 mg IH RQ4 [facility] Last Admin: 10/13/17 20:10 Dose: 0.5 mg Levalbuterol HCl (Xopenex) 0.63 mg INH RQ8 [facility] Last Admin: 10/13/17 16:10 Dose: 0.63 mg Levothyroxine Sodium (Synthroid) 50 mcg PO DAILY@0630 [facility] Last Admin: 10/13/17 05:49 Dose: Not Given Metoprolol Tartrate (Lopressor) 25 mg PO Q12 [facility] Last Admin: 10/13/17 21:22 Dose: 25 mg Pantoprazole Sodium (Protonix Inj) 40 mg IVP DAILY [facility] Last Admin: 10/13/17 09:18 Dose: 40 mg - Labs Labs: 10/13/17 04:15 10/13/17 04:15 PT 18.8 Seconds (9.8-13.1) H 10/13/17 04:15 INR 1.7 (0.9-1.2) H 10/13/17 04:15 APTT 33.2 Seconds (25.6-37.1) 10/13/17 04:15
--- NOTE | 2017-10-14 00:41 | CP.PCM.PN ---
Subjective - Date & Time of Evaluation Date of Evaluation: 10/11/17 Objective - Vital Signs/Intake and Output Vital Signs (last 24 hours): Temp Pulse Resp BP Pulse Ox 97.8 F 78 19 101/36 L 100 10/13/17 16:00 10/13/17 21:22 10/13/17 18:00 10/13/17 21:22 10/13/17 18:00 Intake and Output: 10/13/17 10/14/17 18:59 06:59 Intake Total 848 Output Total 100 Balance 748 - Medications Medications: Current Medications Acetaminophen (Tylenol 325mg Tab) 975 mg PO ONCE PRN PRN Reason: Fever >100.4 F Aspirin (Aspirin) 325 mg PO DAILY [facility] Last Admin: 10/13/17 09:12 Dose: Not Given Atorvastatin Calcium (Lipitor) 20 mg PO DAILY [facility] Last Admin: 10/13/17 09:13 Dose: Not Given Enoxaparin Sodium (Lovenox) 30 mg SC DAILY [facility] PRN Reason: Protocol Last Admin: 10/13/17 09:17 Dose: Not Given Glipizide (Glucotrol Xl) 2.5 mg PO ACB [facility] Last Admin: 10/13/17 09:12 Dose: Not Given Haloperidol Lactate (Haldol) 1 mg IVP Q6 PRN PRN Reason: Agitation Cefepime HCl 1 gm/ Sodium (Chloride) 100 mls @ 100 mls/hr IVPB Q8 [place] PRN Reason: Protocol Last Admin: 10/13/17 16:30 Dose: 100 mls/hr Azithromycin 500 mg/ Sodium (Chloride) 250 mls @ 250 mls/hr IVPB DAILY [facility] PRN Reason: Protocol Last Admin: 10/13/17 09:19 Dose: 250 mls/hr Linezolid (Zyvox 600mg/300ml D5w) 600 mg in 300 mls @ 300 mls/hr IVPB Q12 [place] PRN Reason: Protocol Last Admin: 10/13/17 21:29 Dose: 300 mls/hr Sodium Chloride (Sodium Chloride 0.9%) 1,000 mls @ 95 mls/hr IV .[id number] [facility] Stop: 10/14/17 12:25 Last Admin: 10/13/17 14:18 Dose: 95 mls/hr Propofol (Diprivan) 1,000 mg in 100 mls @ 1.606 mls/hr IV .Q24H MI; 5 MCG/KG/ MIN PRN Reason: Protocol Stop: 10/14/17 22:23 Last Admin: 10/13/17 22:38 Dose: 10 mcg/kg/min, 3.211 mls/hr Insulin Human Lispro (Humalog) 0 units SC ACHS [place] PRN Reason: Protocol Last Admin: 10/13/17 21:39 Dose: Not Given Ipratropium [place] (Atrovent) 0.5 mg IH RQ4 [facility] Last Admin: 10/13/17 20:10 Dose: 0.5 mg Levalbuterol HCl (Xopenex) 0.63 mg INH RQ8 [facility] Last Admin: 10/13/17 16:10 Dose: 0.63 mg Levothyroxine Sodium (Synthroid) 50 mcg PO DAILY@0630 [facility] Last Admin: 10/13/17 05:49 Dose: Not Given Metoprolol Tartrate (Lopressor) 25 mg PO Q12 [facility] Last Admin: 10/13/17 21:22 Dose: 25 mg Pantoprazole Sodium (Protonix Inj) 40 mg IVP DAILY [facility] Last Admin: 10/13/17 09:18 Dose: 40 mg - Labs Labs: 10/13/17 04:15 10/13/17 04:15 PT 18.8 Seconds (9.8-13.1) H 10/13/17 04:15 INR 1.7 (0.9-1.2) H 10/13/17 04:15 APTT 33.2 Seconds (25.6-37.1) 10/13/17 04:15
--- NOTE | 2017-10-14 00:41 | CP.PCM.PN ---
Subjective - Date & Time of Evaluation Date of Evaluation: 10/12/17 Objective - Vital Signs/Intake and Output Vital Signs (last 24 hours): Temp Pulse Resp BP Pulse Ox 97.8 F 78 19 101/36 L 100 10/13/17 16:00 10/13/17 21:22 10/13/17 18:00 10/13/17 21:22 10/13/17 18:00 Intake and Output: 10/13/17 10/14/17 18:59 06:59 Intake Total 848 Output Total 100 Balance 748 - Medications Medications: Current Medications Acetaminophen (Tylenol 325mg Tab) 975 mg PO ONCE PRN PRN Reason: Fever >100.4 F Aspirin (Aspirin) 325 mg PO DAILY [facility] Last Admin: 10/13/17 09:12 Dose: Not Given Atorvastatin Calcium (Lipitor) 20 mg PO DAILY [facility] Last Admin: 10/13/17 09:13 Dose: Not Given Enoxaparin Sodium (Lovenox) 30 mg SC DAILY [facility] PRN Reason: Protocol Last Admin: 10/13/17 09:17 Dose: Not Given Glipizide (Glucotrol Xl) 2.5 mg PO ACB [facility] Last Admin: 10/13/17 09:12 Dose: Not Given Haloperidol Lactate (Haldol) 1 mg IVP Q6 PRN PRN Reason: Agitation Cefepime HCl 1 gm/ Sodium (Chloride) 100 mls @ 100 mls/hr IVPB Q8 [place] PRN Reason: Protocol Last Admin: 10/13/17 16:30 Dose: 100 mls/hr Azithromycin 500 mg/ Sodium (Chloride) 250 mls @ 250 mls/hr IVPB DAILY [facility] PRN Reason: Protocol Last Admin: 10/13/17 09:19 Dose: 250 mls/hr Linezolid (Zyvox 600mg/300ml D5w) 600 mg in 300 mls @ 300 mls/hr IVPB Q12 [place] PRN Reason: Protocol Last Admin: 10/13/17 21:29 Dose: 300 mls/hr Sodium Chloride (Sodium Chloride 0.9%) 1,000 mls @ 95 mls/hr IV .[id number] [facility] Stop: 10/14/17 12:25 Last Admin: 10/13/17 14:18 Dose: 95 mls/hr Propofol (Diprivan) 1,000 mg in 100 mls @ 1.606 mls/hr IV .Q24H MI; 5 MCG/KG/ MIN PRN Reason: Protocol Stop: 10/14/17 22:23 Last Admin: 10/13/17 22:38 Dose: 10 mcg/kg/min, 3.211 mls/hr Insulin Human Lispro (Humalog) 0 units SC ACHS [facility] PRN Reason: Protocol Last Admin: 10/13/17 21:39 Dose: Not Given Ipratropium [place] (Atrovent) 0.5 mg IH RQ4 [facility] Last Admin: 10/13/17 20:10 Dose: 0.5 mg Levalbuterol HCl (Xopenex) 0.63 mg INH RQ8 [facility] Last Admin: 10/13/17 16:10 Dose: 0.63 mg Levothyroxine Sodium (Synthroid) 50 mcg PO DAILY@0630 [facility] Last Admin: 10/13/17 05:49 Dose: Not Given Metoprolol Tartrate (Lopressor) 25 mg PO Q12 [facility] Last Admin: 10/13/17 21:22 Dose: 25 mg Pantoprazole Sodium (Protonix Inj) 40 mg IVP DAILY [facility] Last Admin: 10/13/17 09:18 Dose: 40 mg - Labs Labs: 10/13/17 04:15 10/13/17 04:15 PT 18.8 Seconds (9.8-13.1) H 10/13/17 04:15 INR 1.7 (0.9-1.2) H 10/13/17 04:15 APTT 33.2 Seconds (25.6-37.1) 10/13/17 04:15
--- NOTE | 2017-10-14 00:42 | CP.PCM.PN ---
Subjective - Date & Time of Evaluation Date of Evaluation: 10/13/17 Objective - Vital Signs/Intake and Output Vital Signs (last 24 hours): Temp Pulse Resp BP Pulse Ox 97.8 F 78 19 101/36 L 100 10/13/17 16:00 10/13/17 21:22 10/13/17 18:00 10/13/17 21:22 10/13/17 18:00 Intake and Output: 10/13/17 10/14/17 18:59 06:59 Intake Total 848 Output Total 100 Balance 748 - Medications Medications: Current Medications Acetaminophen (Tylenol 325mg Tab) 975 mg PO ONCE PRN PRN Reason: Fever >100.4 F Aspirin (Aspirin) 325 mg PO DAILY [facility] Last Admin: 10/13/17 09:12 Dose: Not Given Atorvastatin Calcium (Lipitor) 20 mg PO DAILY [facility] Last Admin: 10/13/17 09:13 Dose: Not Given Enoxaparin Sodium (Lovenox) 30 mg SC DAILY [facility] PRN Reason: Protocol Last Admin: 10/13/17 09:17 Dose: Not Given Glipizide (Glucotrol Xl) 2.5 mg PO ACB [facility] Last Admin: 10/13/17 09:12 Dose: Not Given Haloperidol Lactate (Haldol) 1 mg IVP Q6 PRN PRN Reason: Agitation Cefepime HCl 1 gm/ Sodium (Chloride) 100 mls @ 100 mls/hr IVPB Q8 [facility] PRN Reason: Protocol Last Admin: 10/13/17 16:30 Dose: 100 mls/hr Azithromycin 500 mg/ Sodium (Chloride) 250 mls @ 250 mls/hr IVPB DAILY [facility] PRN Reason: Protocol Last Admin: 10/13/17 09:19 Dose: 250 mls/hr Linezolid (Zyvox 600mg/300ml D5w) 600 mg in 300 mls @ 300 mls/hr IVPB Q12 [facility] PRN Reason: Protocol Last Admin: 10/13/17 21:29 Dose: 300 mls/hr Sodium Chloride (Sodium Chloride 0.9%) 1,000 mls @ 95 mls/hr IV .[id number] [facility] Stop: 10/14/17 12:25 Last Admin: 10/13/17 14:18 Dose: 95 mls/hr Propofol (Diprivan) 1,000 mg in 100 mls @ 1.606 mls/hr IV .Q24H MI; 5 MCG/KG/ MIN PRN Reason: Protocol Stop: 10/14/17 22:23 Last Admin: 10/13/17 22:38 Dose: 10 mcg/kg/min, 3.211 mls/hr Insulin Human Lispro (Humalog) 0 units SC ACHS [facility] PRN Reason: Protocol Last Admin: 10/13/17 21:39 Dose: Not Given Ipratropium [place] (Atrovent) 0.5 mg IH RQ4 [facility] Last Admin: 10/13/17 20:10 Dose: 0.5 mg Levalbuterol HCl (Xopenex) 0.63 mg INH RQ8 [facility] Last Admin: 10/13/17 16:10 Dose: 0.63 mg Levothyroxine Sodium (Synthroid) 50 mcg PO DAILY@0630 [facility] Last Admin: 10/13/17 05:49 Dose: Not Given Metoprolol Tartrate (Lopressor) 25 mg PO Q12 [facility] Last Admin: 10/13/17 21:22 Dose: 25 mg Pantoprazole Sodium (Protonix Inj) 40 mg IVP DAILY [facility] Last Admin: 10/13/17 09:18 Dose: 40 mg - Labs Labs: 10/13/17 04:15 10/13/17 04:15 PT 18.8 Seconds (9.8-13.1) H 10/13/17 04:15 INR 1.7 (0.9-1.2) H 10/13/17 04:15 APTT 33.2 Seconds (25.6-37.1) 10/13/17 04:15
[2017-10-14] MEDS: Levalbuterol 0.63 MG/3 ML Inhal Soln UD INH SCH ×3 (00:45→16:25)
[2017-10-14] MEDS: Ipratropium 0.02% Inhal Soln (0.5 mg/2.5 ml) UD IH SCH ×6 (00:45→19:21)
[2017-10-14] MEDS: Cefepime 1 GM in Sodium Chloride 0.9% 100 ML IVPB SCH ×3 (03:25→17:06)
[2017-10-14 05:53] LABS: EOS # 0.5 K/uL (0.0-0.7); EOS % 3.5 % (0.0-4.0); LYMPH # 1.2 K/uL (1.0-4.3); LYMPH % 7.5 % (20.0-40.0); MEAN CELL VOLUME 94.1 fl (81.0-99.0); MEAN CORPUSCULAR HEMOGLOBIN 29.7 pg (27.0-31.0); MEAN CORPUSCULAR HGB CONC 31.5 g/dL (33.0-37.0); MEAN PLATELET VOLUME 9.7 fl (7.2-11.7); MONO # 0.4 K/uL (0.0-0.8); MONO % 2.9 % (0.0-10.0); NEUT # 13.4 K/uL (1.8-7.0); NEUT % 86.1 % (50.0-75.0); NRBC % 0.1 % (0.0-0.0); PLATELET COUNT 244 K/uL (130-400); RBC 3.04 Mil/uL (3.80-5.20); RED CELL DISTRIBUTION WIDTH 13.9 % (11.5-14.5); WHITE BLOOD COUNT 15.6 K/uL (4.8-10.8)
[2017-10-14] MEDS: Levothyroxine 50 MCG TAB PO SCH (06:04)
[2017-10-14 06:52] LABS: INR 1.8 (0.9-1.2); PROTHROMBIN TIME 20.2 Seconds (9.8-13.1)
[2017-10-14 07:32] LABS: CALCIUM 7.9 mg/dL (8.4-10.2)
[2017-10-14 08:02] LABS: ABG ALLEN TEST YES; ARTERIAL BLOOD GAS HCO3 23.4 mmol/L (21-28); ARTERIAL BLOOD GAS PCO2 33 mm/Hg (35-45); ARTERIAL BLOOD GAS PH 7.43 (7.35-7.45); ARTERIAL BLOOD GAS PO2 84 mm/Hg (80-100); ARTERIAL BLOOD GAS TCO2 22.9 mmol/L (22-28)
[2017-10-14] MEDS: GlipiZIDE 2.5 mg SR Tab PO SCH (08:14)
[2017-10-14] MEDS: Enoxaparin 30 mg Syringe SC SCH (09:15)
[2017-10-14] MEDS: Linezolid 600 mg in D5W 300 ml 600 MG/300 ML BAG IVPB SCH (09:15)
[2017-10-14] MEDS: Sodium Chloride 0.9% 1,000 ML IV SCH (09:17)
[2017-10-14 10:17] LABS: EOSINOPHIL 2 % (0-7); LYMPHOCYTE 5 % (20-50); MONOCYTE 2 % (0-10); NEUTROPHIL 91 % (42-75); PLATELET ESTIMATE NORMAL (NORMAL); TOTAL CELLS COUNTED 100
[2017-10-14 10:18] LABS: HYPOCHROMIC SLIGHT; LARGE PLATELETS PRESENT; TOXIC GRANULATION PRESENT
--- NOTE | 2017-10-14 10:50 | CP.CCUPN ---
<Heidi Mascorro - Last Filed: 10/14/17 18:03> CCU Subjective - Physician Review Subjective (Free Text): 10/14/17 87 y/o F with PMHX of HTN, HYpercholesterolemia, DM admitted with persistent cough, chest congestion, fevers for 2 days found to be Influenza positive with superimposed multilobar pneumonia. Patient was intubated on 10/12/17 because worsening respiratory status. Patient is intubated and sedated. ABg done today on FiO2 70 %, showed PaO2 84. ON PRVC AC 14 TV 400 FiO2 70 % PEEP 5. As per nurse's notes no events overnight. Patient was tolerating fluids well overnight. VS on monitor: BP: 110/41, Oxygen sat Critical Care Time Spent (in minutes): 45 CCU Objective - Vital Signs / Intake & Output Vital Signs (Last 4 hours): Vital Signs Pulse BP 10/14/17 09:14 85 109/41 L Intake and Output (Last 8hrs): Intake & Output 10/13/17 10/14/17 10/14/17 22:59 06:59 14:59 Intake Total 814 1224 Output Total 100 150 Balance 714 1074 Intake: IV 294 784 Intake, Piggyback 400 100 Tube Feeding 90 340 Free Water Flush 30 Output: Urine 100 150 Urethral (Jamil) 100 150 - Physical Exam Head: Positive for: Atraumatic, Normocephalic. Negative for: Tenderness, Contusion Pupils: Positive for: PERRL. Negative for: Sluggish, Non-Reactive Extroacular Muscles: Negative for: Gaze Palsy, Entrapment Conjunctiva: Positive for: Normal. Negative for: Injected, Icteric Mouth: Positive for: Moist Mucous Membranes Pharnyx: Positive for: Normal Nose (External): Positive for: Atraumatic Nose (Internal): Positive for: Normal Inspection Neck: Positive for: Trachea Midline. Negative for: Meningeal Signs, MIDLINE TENDERNESS, Paraspinal Tenderness, JVD, Lymphadenopathy, Bruit, Other Respiratory/Chest: Positive for: Clear to Auscultation, Good Air Exchange. Negative for: Respiratory Distress, Accessory Muscle Use, Wheezes, Rales, Rhonchi, Tender to Palpation Cardiovascular: Positive for: Regular Rate and Rhythm, Normal S1, S2, Peripheal Pulses Present. Negative for: Murmurs, Irregular Rhythm, Tachycardic Abdomen: Positive for: Normal Bowel Sounds. Negative for: Tenderness, Distention, Peritoneal Signs Upper Extremity: Positive for: Normal Inspection, Normal ROM, NORMAL PULSES, Capillary Refill < 2s. Negative for: Cyanosis, Edema Lower Extremity: Positive for: Edema (in lower extremities), NORMAL PULSES, Capillary Refill < 2 s Skin: Positive for: Warm, Dry, Pale Psychiatric: Positive for: Other (Intubated and sedated). Negative for: Alert, Oriented x 3 - Medications Active Medications: Active Medications Generic Name Dose Route Start Last Admin Trade Name Freq PRN Reason Stop Dose Admin Acetaminophen 975 mg 10/11/17 20:15 Tylenol 325mg Tab PO ONCE PRN Fever >100.4 F Aspirin 325 mg 10/12/17 09:00 10/14/17 09:27 Aspirin PO 325 mg DAILY [facility] Administration Atorvastatin Calcium 20 mg 10/12/17 09:00 10/14/17 09:14 Lipitor PO 20 mg DAILY [facility] Administration Enoxaparin Sodium 30 mg 10/12/17 09:00 10/14/17 09:15 Lovenox SC 30 mg DAILY [facility] Administration Protocol Glipizide 2.5 mg 10/12/17 07:30 10/14/17 08:14 Glucotrol Xl PO 2.5 mg ACB [facility] Administration Haloperidol Lactate 1 mg 10/11/17 20:15 Haldol IVP Q6 PRN Agitation Cefepime HCl 1 gm/ Sodium 100 mls @ 100 mls/hr 10/12/17 01:00 10/14/17 09:15 Chloride IVPB 100 mls/hr Q8 MI Administration Protocol Azithromycin 500 mg/ Sodium 250 mls @ 250 mls/hr 10/12/17 09:00 10/13/17 09: 19 Chloride IVPB 250 mls/hr DAILY [facility] Administration Protocol Linezolid 600 mg in 300 mls @ 300 mls/hr 10/11/17 21:00 10/13/17 21:29 Zyvox 600mg/300ml D5w IVPB 300 mls/hr Q12 [facility] Administration Protocol Sodium Chloride 1,000 mls @ 95 mls/hr 10/13/17 12:30 10/14/17 09:17 Sodium Chloride 0.9% IV 10/14/17 12:25 95 mls/hr .[id number] [facility] Administration Propofol 1,000 mg in 100 mls @ 1.606 mls/hr 10/13/17 22:30 10/13/17 22:38 Diprivan IV 10/14/17 22:23 10 mcg/kg/min .Q24H MI 3.211 mls/hr Protocol Administration 5 MCG/KG/MIN Insulin Human Lispro 0 units 10/11/17 22:00 10/13/17 21:39 Humalog SC Not Given ACHS [facility] Protocol Ipratropium [place] 0.5 mg 10/12/17 00:00 10/14/17 08:51 Atrovent IH 0.5 mg RQ4 [facility] Administration Levalbuterol HCl 0.63 mg 10/12/17 00:00 10/14/17 08:51 Xopenex INH 0.63 mg RQ8 [facility] Administration Levothyroxine Sodium 50 mcg 10/12/17 06:30 10/14/17 06:04 Synthroid PO 50 mcg DAILY@0630 [facility] Administration Metoprolol Tartrate 25 mg 10/11/17 21:00 10/14/17 09:14 Lopressor PO 25 mg Q12 [facility] Administration Pantoprazole Sodium 40 mg 10/13/17 09:00 10/14/17 09:29 Protonix Inj IVP 40 mg DAILY [facility] Administration - Patient Studies Lab Studies: Microbiology Studies 10/13/17 17:00 Gram Stain - Final Sputum 10/11/17 10:58 Urine Culture - Final Urine,Catheterized No Growth (<1,000 CFU/ML) Lab Studies 10/14/17 10/14/17 10/14/17 Range/Units 06:42 05:23 04:15 WBC (4.8-10.8) K/uL RBC (3.80-5.20) Mil/uL Hgb (12.0-16.0) g/dL Hct (34.0-47.0) % MCV (81.0-99.0) fl MCH (27.0-31.0) pg MCHC (33.0-37.0) g/dL RDW (11.5-14.5) % Plt Count (130-400) K/uL MPV (7.2-11.7) fl Neut % (Auto) (50.0-75.0) % Lymph % (Auto) (20.0-40.0) % Mason % (Auto) (0.0-10.0) % Eos % (Auto) (0.0-4.0) % Baso % (Auto) (0.0-2.0) % Neut # (Auto) (1.8-7.0) K/uL Lymph # (Auto) (1.0-4.3) K/uL Mason # (Auto) (0.0-0.8) K/uL Eos # (Auto) (0.0-0.7) K/uL Baso # (Auto) (0.0-0.2) K/uL Neutrophils % (Manual) (42-75) % Lymphocytes % (Manual) (20-50) % Monocytes % (Manual) (0-10) % Eosinophils % (Manual) (0-7) % Toxic Granulation Platelet Estimate (NORMAL) Large Platelets Hypochromasia (manual) PT 20.2 H (9.8-13.1) Seconds INR 1.8 H (0.9-1.2) pCO2 33 L (35-45) mm/Hg pO2 84 (80-100) mm/Hg HCO3 23.4 (21-28) mmol/L ABG pH 7.43 (7.35-7.45) ABG Total CO2 22.9 (22-28) mmol/L ABG O2 Saturation 98.0 (95-98) % ABG Base Excess -2.0 (-2.0-3.0) mmol/L Michael Test Yes ABG Potassium 3.5 L (3.6-5.2) mmol/L A-a O2 Difference 374.0 mm/Hg Glucose 237 H (65-105) mg/dL Lactate 2.9 H (0.7-2.1) mmol/L Vent Mode Prvc ac Mechanical Rate 14 FiO2 70.0 % Tidal Volume 400 PEEP 5 Sodium 137.0 (132-148) mmol/l Potassium (3.6-5.0) MMOL/L Chloride 107.0 (98-107) mmol/L Carbon Dioxide (22-30) mmol/L Anion Gap (10-20) BUN (7-17) mg/dl Creatinine (0.7-1.2) mg/dl Est GFR ( Amer) Est GFR (Non-Af Amer) POC Glucose (mg/dL) 220 H (65-110) mg/dL Random Glucose (65-105) mg/dL Calcium (8.4-10.2) mg/dL Arterial Blood Potassium 3.5 L (3.6-5.2) mmol/L 10/14/17 10/14/17 10/13/17 Range/Units 04:15 04:15 21:18 WBC 15.6 H (4.8-10.8) K/uL RBC 3.04 L (3.80-5.20) Mil/uL Hgb 9.0 L (12.0-16.0) g/dL Hct 28.6 L (34.0-47.0) % MCV 94.1 (81.0-99.0) fl MCH 29.7 (27.0-31.0) pg MCHC 31.5 L (33.0-37.0) g/dL RDW 13.9 (11.5-14.5) % Plt Count 244 (130-400) K/uL MPV 9.7 (7.2-11.7) fl Neut % (Auto) 86.1 H (50.0-75.0) % Lymph % (Auto) 7.5 L (20.0-40.0) % Mason % (Auto) 2.9 (0.0-10.0) % Eos % (Auto) 3.5 (0.0-4.0) % Baso % (Auto) 0.0 (0.0-2.0) % Neut # (Auto) 13.4 H (1.8-7.0) K/uL Lymph # (Auto) 1.2 (1.0-4.3) K/uL Mason # (Auto) 0.4 (0.0-0.8) K/uL Eos # (Auto) 0.5 (0.0-0.7) K/uL Baso # (Auto) 0.0 (0.0-0.2) K/uL Neutrophils % (Manual) 91 H (42-75) % Lymphocytes % (Manual) 5 L (20-50) % Monocytes % (Manual) 2 (0-10) % Eosinophils % (Manual) 2 (0-7) % Toxic Granulation Present Platelet Estimate Normal (NORMAL) Large Platelets Present Hypochromasia (manual) Slight PT (9.8-13.1) Seconds INR (0.9-1.2) pCO2 (35-45) mm/Hg pO2 (80-100) mm/Hg HCO3 (21-28) mmol/L ABG pH (7.35-7.45) ABG Total CO2 (22-28) mmol/L ABG O2 Saturation (95-98) % ABG Base Excess (-2.0-3.0) mmol/L Michael Test ABG Potassium (3.6-5.2) mmol/L A-a O2 Difference mm/Hg Glucose (65-105) mg/dL Lactate (0.7-2.1) mmol/L Vent Mode Mechanical Rate FiO2 % Tidal Volume PEEP Sodium 140 (132-148) mmol/l Potassium 3.4 L (3.6-5.0) MMOL/L Chloride 106 (98-107) mmol/L Carbon Dioxide 24 (22-30) mmol/L Anion Gap 13 (10-20) BUN 32 H (7-17) mg/dl Creatinine 1.5 H (0.7-1.2) mg/dl Est GFR ( Amer) 40 Est GFR (Non-Af Amer) 33 POC Glucose (mg/dL) 125 H (65-110) mg/dL Random Glucose 209 H (65-105) mg/dL Calcium 7.9 L (8.4-10.2) mg/dL Arterial Blood Potassium (3.6-5.2) mmol/L 10/13/17 10/13/17 Range/Units 17:01 11:11 WBC (4.8-10.8) K/uL RBC (3.80-5.20) Mil/uL Hgb (12.0-16.0) g/dL Hct (34.0-47.0) % MCV (81.0-99.0) fl MCH (27.0-31.0) pg MCHC (33.0-37.0) g/dL RDW (11.5-14.5) % Plt Count (130-400) K/uL MPV (7.2-11.7) fl Neut % (Auto) (50.0-75.0) % Lymph % (Auto) (20.0-40.0) % Mason % (Auto) (0.0-10.0) % Eos % (Auto) (0.0-4.0) % Baso % (Auto) (0.0-2.0) % Neut # (Auto) (1.8-7.0) K/uL Lymph # (Auto) (1.0-4.3) K/uL Mason # (Auto) (0.0-0.8) K/uL Eos # (Auto) (0.0-0.7) K/uL Baso # (Auto) (0.0-0.2) K/uL Neutrophils % (Manual) (42-75) % Lymphocytes % (Manual) (20-50) % Monocytes % (Manual) (0-10) % Eosinophils % (Manual) (0-7) % Toxic Granulation Platelet Estimate (NORMAL) Large Platelets Hypochromasia (manual) PT (9.8-13.1) Seconds INR (0.9-1.2) pCO2 (35-45) mm/Hg pO2 (80-100) mm/Hg HCO3 (21-28) mmol/L ABG pH (7.35-7.45) ABG Total CO2 (22-28) mmol/L ABG O2 Saturation (95-98) % ABG Base Excess (-2.0-3.0) mmol/L Michael Test ABG Potassium (3.6-5.2) mmol/L A-a O2 Difference mm/Hg Glucose (65-105) mg/dL Lactate (0.7-2.1) mmol/L Vent Mode Mechanical Rate FiO2 % Tidal Volume PEEP Sodium (132-148) mmol/l Potassium (3.6-5.0) MMOL/L Chloride (98-107) mmol/L Carbon Dioxide (22-30) mmol/L Anion Gap (10-20) BUN (7-17) mg/dl Creatinine (0.7-1.2) mg/dl Est GFR ( Amer) Est GFR (Non-Af Amer) POC Glucose (mg/dL) 129 H 97 (65-110) mg/dL Random Glucose (65-105) mg/dL Calcium (8.4-10.2) mg/dL Arterial Blood Potassium (3.6-5.2) mmol/L Laboratory Results - last 24 hr 10/13/17 10/13/17 10/13/17 11:11 17:01 21:18 WBC RBC Hgb Hct MCV MCH MCHC RDW Plt Count MPV Neut % (Auto) Lymph % (Auto) Mason % (Auto) Eos % (Auto) Baso % (Auto) Neut # (Auto) Lymph # (Auto) Mason # (Auto) Eos # (Auto) Baso # (Auto) Neutrophils % (Manual) Lymphocytes % (Manual) Monocytes % (Manual) Eosinophils % (Manual) Toxic Granulation Platelet Estimate Large Platelets Hypochromasia (manual) PT INR pCO2 pO2 HCO3 ABG pH ABG Total CO2 ABG O2 Saturation ABG Base Excess Michael Test ABG Potassium A-a O2 Difference Glucose Lactate Vent Mode Mechanical Rate FiO2 Tidal Volume PEEP Sodium Potassium Chloride Carbon Dioxide Anion Gap BUN Creatinine Est GFR ( Amer) Est GFR (Non-Af Amer) POC Glucose (mg/dL) 97 129 H 125 H Random Glucose Calcium Arterial Blood Potassium 10/14/17 10/14/17 10/14/17 04:15 04:15 04:15 WBC 15.6 H RBC 3.04 L Hgb 9.0 L Hct 28.6 L MCV 94.1 MCH 29.7 MCHC 31.5 L RDW 13.9 Plt Count 244 MPV 9.7 Neut % (Auto) 86.1 H Lymph % (Auto) 7.5 L Mason % (Auto) 2.9 Eos % (Auto) 3.5 Baso % (Auto) 0.0 Neut # (Auto) 13.4 H Lymph # (Auto) 1.2 Mason # (Auto) 0.4 Eos # (Auto) 0.5 Baso # (Auto) 0.0 Neutrophils % (Manual) 91 H Lymphocytes % (Manual) 5 L Monocytes % (Manual) 2 Eosinophils % (Manual) 2 Toxic Granulation Present Platelet Estimate Normal Large Platelets Present Hypochromasia (manual) Slight PT 20.2 H INR 1.8 H pCO2 pO2 HCO3 ABG pH ABG Total CO2 ABG O2 Saturation ABG Base Excess Michael Test ABG Potassium A-a O2 Difference Glucose Lactate Vent Mode Mechanical Rate FiO2 Tidal Volume PEEP Sodium 140 Potassium 3.4 L Chloride 106 Carbon Dioxide 24 Anion Gap 13 BUN 32 H Creatinine 1.5 H Est GFR ( Amer) 40 Est GFR (Non-Af Amer) 33 POC Glucose (mg/dL) Random Glucose 209 H Calcium 7.9 L Arterial Blood Potassium 10/14/17 10/14/17 05:23 06:42 WBC RBC Hgb Hct MCV MCH MCHC RDW Plt Count MPV Neut % (Auto) Lymph % (Auto) Mason % (Auto) Eos % (Auto) Baso % (Auto) Neut # (Auto) Lymph # (Auto) Mason # (Auto) Eos # (Auto) Baso # (Auto) Neutrophils % (Manual) Lymphocytes % (Manual) Monocytes % (Manual) Eosinophils % (Manual) Toxic Granulation Platelet Estimate Large Platelets Hypochromasia (manual) PT INR pCO2 33 L pO2 84 HCO3 23.4 ABG pH 7.43 ABG Total CO2 22.9 ABG O2 Saturation 98.0 ABG Base Excess -2.0 Michael Test Yes ABG Potassium 3.5 L A-a O2 Difference 374.0 Glucose 237 H Lactate 2.9 H Vent Mode Prvc ac Mechanical Rate 14 FiO2 70.0 Tidal Volume 400 PEEP 5 Sodium 137.0 Potassium Chloride 107.0 Carbon Dioxide Anion Gap BUN Creatinine Est GFR ( Amer) Est GFR (Non-Af Amer) POC Glucose (mg/dL) 220 H Random Glucose Calcium Arterial Blood Potassium 3.5 L Fingerstick Blood Sugar Results: 125 Review of Systems - Review of Systems Review of Systems: unable to assess because altered mental status Critical Care Progress Note - Ventilator Checklist Head of Bed 30 Degrees: Yes Daily Assessment of Readiness to Wean: Yes - Nutrition Nutrition: Nutrition Category Date Time Status NPO Diet [DIET] Diets 10/12/17 Breakfast Active Assessment/Plan - Assessment and Plan (Free Text) Plan: Acute hypoxemic respiratory failure secondary to Bacterial Pneumonia in superimposed Influenza infection -s/p post-endotracheal tube placement on 10/12/17 and Mechanical ventilation -PRVC AC 14 TV 400 FiO2 70 % PEEP 5, FiO2 decreased to 50 % at 10:10 am, patient saturating at 97-99 % -will continue process of weaning from ventilator -Afebrile, no tachycardic -c/w antibiotics as per ID -Linezolid 600 mg IVPB Q12 -cefepime 1 gm IVPB Q8 -Azithromycin 500 mg IVPB daily -IV fluids maintenance -c/w chest PT and suctioning -c/w nebulizer treatment -f/u CBC, Coag panel, ABG, CXR in AM -CXR on 10/13/17 showed mild to moderate improvement in the lungs -ID on consult, f/u recs -Pulmonology on consult, f/u recs. As per Pulmonology no other intervention at this time. C/W with respiratory status monitoring UTI -urine culture positive x Klebsiella -covered with current antibiotics -f/u BMP in AM Hypertension -BP in low levels. SBP: in high 90s low 100s -will hold metoprolol for now -on sedation/mechanical ventilation Diabetes mellitus type 2 -c/w glycemic control Azothemia -BUN/Cr slightly elevated -today 32/1.5 -BP in low levels, will give fluids, and hold BP med for now -give one bolus of 500 ml NS -will increase fluid maintenance rate -echo done on 10/12/17 reported as normal LV function, normal EF: 60-65 % -f/u BUN/Cr Hypokalemia -mild K+ 3.4 -replace with potassium 40 meq by OG tube once -f/u K+ Diet -Glucerna by OG tube/ continuous @ 50 cc/hr Prophylaxis -stress ulcer prophylaxis with protonix 40 mg IV QD -DVT prophylaxis with SCDs and lovenox - Date & Time Date: 10/14/17 Time: 09:50 <Bryant Faria - Last Filed: 10/14/17 18:26> CCU Subjective - Physician Review Subjective (Free Text): Attestation: Patient seen and examined at the bedside with Resident Dr. Woody Mascorro; and I agree with her outline of plans and management documented above as discussed on AM rounds reflecting my review of all applicable clinical data, and participation in the care of the patient throughout the day in ICU; October.
[2017-10-14] MEDS: Azithromycin 500 MG in Sodium Chloride 0.9% 250 ML IVPB SCH (11:03)
[2017-10-14] MEDS: Insulin Lispro (humaLOG) 100 Units/ml Inj SC SCH ×3 (12:00→21:12)
[2017-10-14] MEDS ORDERED: Sodium Chloride 0.9% 1,000 ML IV SCH ×2 (12:18)
--- NOTE | 2017-10-14 12:23 | RAD ---
PROCEDURE: CHEST RADIOGRAPH, 1 VIEW HISTORY: on mechanical ventilation COMPARISON: Chest radiograph dated 10/13/2017. FINDINGS: LUNGS: Patchy bilateral infiltrates redemonstrated. Pulmonary vascular congestion/edema. PLEURA: Probable small bilateral pleural effusions. No appreciable pneumothorax. CARDIOVASCULAR: Atherosclerotic aortic calcifications. Cardiomediastinal silhouette within normal limits OSSEOUS STRUCTURES: Unchanged. VISUALIZED UPPER ABDOMEN: Normal. OTHER FINDINGS: Endotracheal and enteric tubes, unchanged. IMPRESSION: No significant interval change.
[2017-10-14] MEDS ORDERED: Potassium Chloride 40 MEQ in Sodium Chloride 0.9% 500 ML IV ONE (12:30)
[2017-10-14] MEDS ORDERED: Sodium Chloride 0.9% 500 ML IV ONE (12:38)
[2017-10-14] MEDS ORDERED: Potassium Chloride 20 mEq/15 ml LIQ UD PO ONE (12:39)
[2017-10-14] MEDS ORDERED: Phytonadione 10 mg/ml Inj (Adult) IVPB ONE (12:56)
--- NOTE | 2017-10-14 13:41 | RAD ---
PROCEDURE: CHEST RADIOGRAPH, 1 VIEW HISTORY: endotracheal intubation/Mec vent COMPARISON: Chest radiograph performed approximately 7.5 hours prior. FINDINGS: LUNGS: Patchy bilateral infiltrates redemonstrated. Pulmonary vascular congestion/edema. PLEURA: Probable small bilateral pleural effusions. No appreciable pneumothorax. CARDIOVASCULAR: Atherosclerotic aortic calcifications. Cardiomediastinal silhouette unchanged. OSSEOUS STRUCTURES: Unchanged VISUALIZED UPPER ABDOMEN: Normal. OTHER FINDINGS: Endotracheal and enteric tubes, unchanged IMPRESSION: No significant interval change.
--- NOTE | 2017-10-14 14:04 | PN ---
DATE: SUBJECTIVE: The patient is on a ventilator, FiO2 is reduced from 70% to 50%. Diprivan was increased because of restlessness and agitation. The patient's son and granddaughter are at the bedside. She flew recently from [place]. I by the patient's granddaughter that her aunt left with the patient. Her aunt is some 66 years old. PHYSICAL EXAMINATION: VITAL SIGNS: Blood pressure 104/44, heart rate 77, temperature 98, and respirations 23. HEENT: Normocephalic. CHEST: Bibasal coarse crepitations. HEART: S1 and S2 regular. EXTREMITIES: No edema. LABORATORY DATA: Today's hemoglobin and hematocrit are 9 and 28.6, white count is 15.6, and platelet count is 244,000. SMA-7; sodium 140, potassium 3.4, chloride 106, CO2 24, glucose 109, BUN 32, and creatinine 1.5. Chest x-ray revealed significant bilateral alveolar infiltrate, not significantly changed compared to yesterday. ASSESSMENT 1. Bilateral pneumonia. 2. Influenza A positive. 3. Borderline troponin elevation. 4. Anemia. 5. Hypokalemia. RECOMMENDATIONS: Change aspirin to 81 mg once a day. Continue IV Zithromax and IV cefepime. Continue Lipitor 20 mg once a day, subcutaneous Lovenox at 30 mg daily, Protonix at 40 mg intravenously once a day, and Zyvox intravenously q.12 hours. Mitchell Hollis MD
--- NOTE | 2017-10-14 15:31 | CP.PCM.PN ---
Subjective - Date & Time of Evaluation Date of Evaluation: 10/14/17 Time of Evaluation: 11:40 - Subjective Subjective: F/U PNA, Influenza A intubated , sedated Objective - Vital Signs/Intake and Output Vital Signs (last 24 hours): Temp Pulse Resp BP Pulse Ox 98.0 F 79 24 103/41 L 100 10/14/17 12:00 10/14/17 15:00 10/14/17 15:00 10/14/17 15:00 10/14/17 15:00 Intake and Output: 10/14/17 10/14/17 06:59 18:59 Intake Total 1840 1955 Output Total 150 Balance 1690 1955 - Medications Medications: Current Medications Acetaminophen (Tylenol 325mg Tab) 975 mg PO ONCE PRN PRN Reason: Fever >100.4 F Aspirin (Aspirin Chewable) 81 mg PO DAILY MI Atorvastatin Calcium (Lipitor) 20 mg PO DAILY [place] Last Admin: 10/14/17 09:14 Dose: 20 mg Enoxaparin Sodium (Lovenox) 30 mg SC DAILY MI PRN Reason: Protocol Last Admin: 10/14/17 09:15 Dose: 30 mg Furosemide (Lasix) 20 mg IV ONCE ONE Stop: 10/14/17 15:27 Glipizide (Glucotrol Xl) 2.5 mg PO ACB MI Last Admin: 10/14/17 08:14 Dose: 2.5 mg Haloperidol Lactate (Haldol) 1 mg IVP Q6 PRN PRN Reason: Agitation Cefepime HCl 1 gm/ Sodium (Chloride) 100 mls @ 100 mls/hr IVPB Q8 MI PRN Reason: Protocol Last Admin: 10/14/17 09:15 Dose: 100 mls/hr Azithromycin 500 mg/ Sodium (Chloride) 250 mls @ 250 mls/hr IVPB DAILY MI PRN Reason: Protocol Last Admin: 10/14/17 11:03 Dose: 250 mls/hr Linezolid (Zyvox 600mg/300ml D5w) 600 mg in 300 mls @ 300 mls/hr IVPB Q12 MI PRN Reason: Protocol Last Admin: 10/14/17 09:15 Dose: 300 mls/hr Propofol (Diprivan) 1,000 mg in 100 mls @ 1.606 mls/hr IV .Q24H MI; 5 MCG/KG/ MIN PRN Reason: Protocol Stop: 10/14/17 22:23 Last Admin: 10/13/17 22:38 Dose: 10 mcg/kg/min, 3.211 mls/hr Phytonadione 20 mg/ Sodium (Chloride) 52 mls @ 52 mls/hr IV ONCE ONE Stop: 10/14/17 16:14 Insulin Human Lispro (Humalog) 0 units SC ACHS [facility] PRN Reason: Protocol Last Admin: 10/14/17 12:00 Dose: 2 units Ipratropium Watson (Atrovent) 0.5 mg IH RQ4 [facility] Last Admin: 10/14/17 11:55 Dose: 0.5 mg Levalbuterol HCl (Xopenex) 0.63 mg INH RQ8 [facility] Last Admin: 10/14/17 08:51 Dose: 0.63 mg Levothyroxine Sodium (Synthroid) 50 mcg PO DAILY@0630 [facility] Last Admin: 10/14/17 06:04 Dose: 50 mcg Metoprolol Tartrate (Lopressor) 25 mg PO Q12 [facility] Last Admin: 10/14/17 09:14 Dose: 25 mg Pantoprazole Sodium (Protonix Inj) 40 mg IVP DAILY [facility] Last Admin: 10/14/17 09:29 Dose: 40 mg - Labs Labs: 10/14/17 04:15 10/14/17 04:15 PT 20.2 Seconds (9.8-13.1) H 10/14/17 04:15 INR 1.8 (0.9-1.2) H 10/14/17 04:15 APTT 33.2 Seconds (25.6-37.1) 10/13/17 04:15 - Constitutional Appears: Chronically Ill - Head Exam Head Exam: NORMAL INSPECTION - Eye Exam Eye Exam: PERRL - ENT Exam Additional comments: Intubated - Neck Exam Neck Exam: Normal Inspection - Respiratory Exam Respiratory Exam: Decreased Breath Sounds, Rhonchi - Cardiovascular Exam Cardiovascular Exam: REGULAR RHYTHM - GI/Abdominal Exam GI & Abdominal Exam: Soft, Normal Bowel Sounds - Extremities Exam Extremities Exam: Normal Inspection - Back Exam Back Exam: NORMAL INSPECTION - Neurological Exam Additional comments: Intubated, sedated - Psychiatric Exam Additional comments: Calm, intubated - Skin Skin Exam: Warm Assessment and Plan (1) Pneumonia Status: Acute (2) Influenza A Status: Acute (3) Respiratory failure Status: Acute (4) Sepsis Status: Acute - Assessment and Plan (Free Text) Plan: continue ventilatory support , attempt of weaning, Atb cooverage ICU Time: 38 min.
[2017-10-14] MEDS: Propofol 10 mg/ml 1,000 MG/100 ML VIAL IV SCH (20:00)
--- NOTE | 2017-10-14 23:39 | CP.PCM.PN ---
Subjective - Date & Time of Evaluation Date of Evaluation: 10/14/17 Time of Evaluation: 19:50 Objective - Vital Signs/Intake and Output Vital Signs (last 24 hours): Temp Pulse Resp BP Pulse Ox 97.3 F L 94 H 31 H 138/50 L 98 10/14/17 16:00 10/14/17 18:00 10/14/17 18:00 10/14/17 18:00 10/14/17 18:00 Intake and Output: 10/14/17 10/15/17 18:59 06:59 Intake Total 2916 40 Output Total 100 Balance 2816 40 - Medications Medications: Current Medications Acetaminophen (Tylenol 325mg Tab) 975 mg PO ONCE PRN PRN Reason: Fever >100.4 F Aspirin (Aspirin Chewable) 81 mg PO DAILY [facility] Atorvastatin Calcium (Lipitor) 20 mg PO DAILY [facility] Last Admin: 10/14/17 09:14 Dose: 20 mg Enoxaparin Sodium (Lovenox) 30 mg SC DAILY MI PRN Reason: Protocol Last Admin: 10/14/17 09:15 Dose: 30 mg Glipizide (Glucotrol Xl) 2.5 mg PO ACB [facility] Last Admin: 10/14/17 08:14 Dose: 2.5 mg Haloperidol Lactate (Haldol) 1 mg IVP Q6 PRN PRN Reason: Agitation Cefepime HCl 1 gm/ Sodium (Chloride) 100 mls @ 100 mls/hr IVPB Q8 MI PRN Reason: Protocol Last Admin: 10/14/17 17:06 Dose: 100 mls/hr Azithromycin 500 mg/ Sodium (Chloride) 250 mls @ 250 mls/hr IVPB DAILY [facility] PRN Reason: Protocol Last Admin: 10/14/17 11:03 Dose: 250 mls/hr Linezolid (Zyvox 600mg/300ml D5w) 600 mg in 300 mls @ 300 mls/hr IVPB Q12 MI PRN Reason: Protocol Last Admin: 10/14/17 09:15 Dose: 300 mls/hr Insulin Human Lispro (Humalog) 0 units SC ACHS MI PRN Reason: Protocol Last Admin: 10/14/17 21:12 Dose: Not Given Ipratropium Miles (Atrovent) 0.5 mg IH RQ4 [facility] Last Admin: 10/14/17 19:21 Dose: 0.5 mg Levalbuterol HCl (Xopenex) 0.63 mg INH RQ8 [facility] Last Admin: 10/14/17 16:25 Dose: 0.63 mg Levothyroxine Sodium (Synthroid) 50 mcg PO DAILY@0630 [facility] Last Admin: 10/14/17 06:04 Dose: 50 mcg Metoprolol Tartrate (Lopressor) 25 mg PO Q12 [facility] Last Admin: 10/14/17 09:14 Dose: 25 mg Pantoprazole Sodium (Protonix Inj) 40 mg IVP DAILY [facility] Last Admin: 10/14/17 09:29 Dose: 40 mg - Labs Labs: 10/14/17 04:15 10/14/17 04:15 PT 20.2 Seconds (9.8-13.1) H 10/14/17 04:15 INR 1.8 (0.9-1.2) H 10/14/17 04:15 APTT 33.2 Seconds (25.6-37.1) 10/13/17 04:15
[2017-10-15] MEDS: Levalbuterol 0.63 MG/3 ML Inhal Soln UD INH SCH ×3 (00:10→16:04)
[2017-10-15] MEDS: Ipratropium 0.02% Inhal Soln (0.5 mg/2.5 ml) UD IH SCH ×6 (00:10→19:37)
[2017-10-15] MEDS: Linezolid 600 mg in D5W 300 ml 600 MG/300 ML BAG IVPB SCH ×3 (01:17→21:32)
[2017-10-15] MEDS: Cefepime 1 GM in Sodium Chloride 0.9% 100 ML IVPB SCH ×2 (01:18→09:05)
[2017-10-15] MEDS: Propofol 10 mg/ml 1,000 MG/100 ML VIAL IV SCH ×3 (02:00→23:36)
[2017-10-15 05:20] LABS: BASO % 0.1 % (0.0-2.0); EOS # 0.9 K/uL (0.0-0.7); EOS % 4.3 % (0.0-4.0); HEMOGLOBIN 8.5 g/dL (12.0-16.0); LYMPH # 0.9 K/uL (1.0-4.3); LYMPH % 4.5 % (20.0-40.0); MEAN CELL VOLUME 95.1 fl (81.0-99.0); MEAN CORPUSCULAR HEMOGLOBIN 29.9 pg (27.0-31.0); MEAN CORPUSCULAR HGB CONC 31.5 g/dL (33.0-37.0); MEAN PLATELET VOLUME 9.8 fl (7.2-11.7); MONO # 0.4 K/uL (0.0-0.8); MONO % 2.1 % (0.0-10.0); RBC 2.84 Mil/uL (3.80-5.20); RED CELL DISTRIBUTION WIDTH 14.2 % (11.5-14.5); WHITE BLOOD COUNT 20.2 K/uL (4.8-10.8)
[2017-10-15 05:28] LABS: ABG ALLEN TEST YES; ARTERIAL BLOOD GAS HCO3 19.1 mmol/L (21-28); ARTERIAL BLOOD GAS O2 SAT 95.7 % (95-98); ARTERIAL BLOOD GAS PCO2 30 mm/Hg (35-45); ARTERIAL BLOOD GAS PH 7.36 (7.35-7.45); ARTERIAL BLOOD GAS PO2 67 mm/Hg (80-100); ARTERIAL BLOOD GAS TCO2 17.8 mmol/L (22-28)
[2017-10-15 05:30] LABS: INR 1.8 (0.9-1.2); PROTHROMBIN TIME 20.6 Seconds (9.8-13.1)
[2017-10-15 06:03] LABS: CALCIUM 7.4 mg/dL (8.4-10.2)
[2017-10-15] MEDS: Insulin Lispro (humaLOG) 100 Units/ml Inj SC SCH ×4 (08:11→22:03)
[2017-10-15] MEDS: GlipiZIDE 2.5 mg SR Tab PO SCH (09:04)
[2017-10-15] MEDS: Levothyroxine 50 MCG TAB PO SCH (09:04)
[2017-10-15] MEDS: Enoxaparin 30 mg Syringe SC SCH (09:04)
[2017-10-15] MEDS: Azithromycin 500 MG in Sodium Chloride 0.9% 250 ML IVPB SCH (09:05)
--- NOTE | 2017-10-15 10:55 | RAD ---
PROCEDURE: CHEST RADIOGRAPH, 1 VIEW HISTORY: endotracheal intubation/mec ventilation COMPARISON: Chest radiograph dated 10/14/2017 FINDINGS: LUNGS: Patchy bilateral infiltrates redemonstrated. Pulmonary vascular congestion/edema. PLEURA: Probable small bilateral pleural effusions. No appreciable pneumothorax. CARDIOVASCULAR: Atherosclerotic aortic calcifications. Cardiomediastinal silhouette unchanged. OSSEOUS STRUCTURES: Unchanged. VISUALIZED UPPER ABDOMEN: Normal. OTHER FINDINGS: Endotracheal and enteric tubes, unchanged. IMPRESSION: No significant interval change.
[2017-10-15] MEDS: Meropenem 500 MG in Sodium Chloride 0.9% 100 ML IVPB SCH ×2 (11:28→21:29)
[2017-10-15] MEDS: Fluconazole IV 200mg/100 ml NS 100 ML IVPB SCH (11:28)
--- NOTE | 2017-10-15 12:00 | CP.CCUPN ---
<Heidi Mascorro - Last Filed: 10/15/17 17:25> CCU Subjective - Physician Review Subjective (Free Text): 10/15/17 87 y/o F with PMHX of HTN, HYpercholesterolemia, DM admitted with persistent cough, chest congestion, fevers for 2 days found to be Influenza positive with superimposed multilobar pneumonia. Patient was intubated on 10/12/17 because worsening respiratory status. Patient is intubated and sedated. ABG done today on FiO2 50 %, showed PaO2 67, O2 sat 98 %. ON PRVC AC 14 TV 400 FiO2 50 % PEEP 5. As per nurse's notes no events overnight. As per nurse report output overnight was 350 ml. VS on monitor: BP: 102/57, Oxygen sat 100 % on FIO2 50 %, RR: 28/min, HR: 86/min Critical Care Time Spent (in minutes): 45 CCU Objective - Vital Signs / Intake & Output Vital Signs (Last 4 hours): Vital Signs Temp Pulse Resp BP Pulse Ox 10/15/17 10:00 84 30 H 90/49 L 100 10/15/17 08:00 98.4 F 84 25 H 91/38 L 100 Intake and Output (Last 8hrs): Intake & Output 10/14/17 10/15/17 10/15/17 22:59 06:59 14:59 Intake Total 940 1832 1200 Output Total 100 250 Balance 840 1582 1200 Weight 115 lb Intake: IV 640 1032 400 Intake, Piggyback 400 500 Tube Feeding 300 300 200 Free Water Flush 100 100 Output: Urine 100 250 Urethral (Jamil) 100 250 - Physical Exam Head: Positive for: Atraumatic, Normocephalic. Negative for: Tenderness, Contusion Pupils: Positive for: PERRL. Negative for: Sluggish, Non-Reactive Extroacular Muscles: Negative for: Gaze Palsy, Entrapment Conjunctiva: Positive for: Normal. Negative for: Injected, Icteric Mouth: Positive for: Moist Mucous Membranes Pharnyx: Positive for: Normal Nose (External): Positive for: Atraumatic Nose (Internal): Positive for: Normal Inspection Neck: Positive for: Trachea Midline. Negative for: Meningeal Signs, MIDLINE TENDERNESS, Paraspinal Tenderness, JVD, Lymphadenopathy, Bruit, Other Respiratory/Chest: Positive for: Clear to Auscultation, Good Air Exchange. Negative for: Respiratory Distress, Accessory Muscle Use, Wheezes, Rales, Rhonchi, Tender to Palpation Cardiovascular: Positive for: Regular Rate and Rhythm, Normal S1, S2, Peripheal Pulses Present. Negative for: Murmurs, Irregular Rhythm, Tachycardic Abdomen: Positive for: Normal Bowel Sounds. Negative for: Tenderness, Distention, Peritoneal Signs Upper Extremity: Positive for: Normal Inspection, Edema (no pitting edema in upper/lower extremities), NORMAL PULSES, Capillary Refill < 2s. Negative for: Cyanosis Lower Extremity: Positive for: Edema (in lower extremities), NORMAL PULSES, Capillary Refill < 2 s Skin: Positive for: Warm, Dry, Pale Psychiatric: Positive for: Other (Intubated and sedated). Negative for: Alert, Oriented x 3 - Medications Active Medications: Active Medications Generic Name Dose Route Start Last Admin Trade Name Freq PRN Reason Stop Dose Admin Acetaminophen 975 mg 10/11/17 20:15 Tylenol 325mg Tab PO ONCE PRN Fever >100.4 F Aspirin 81 mg 10/14/17 13:15 10/15/17 09:04 Aspirin Chewable PO 81 mg DAILY MI Administration Atorvastatin Calcium 20 mg 10/12/17 09:00 10/15/17 09:04 Lipitor PO 20 mg DAILY MI Administration Glipizide 2.5 mg 10/12/17 07:30 10/15/17 09:04 Glucotrol Xl PO 2.5 mg ACB MI Administration Haloperidol Lactate 1 mg 10/11/17 20:15 Haldol IVP Q6 PRN Agitation Azithromycin 500 mg/ Sodium 250 mls @ 250 mls/hr 10/12/17 09:00 10/15/17 09: 05 Chloride IVPB 250 mls/hr DAILY MI Administration Protocol Linezolid 600 mg in 300 mls @ 300 mls/hr 10/11/17 21:00 10/15/17 09:06 Zyvox 600mg/300ml D5w IVPB 300 mls/hr Q12 IM Administration Protocol Propofol 1,000 mg in 100 mls @ 12.846 mls/hr 10/15/17 03:30 10/15/17 11:37 Diprivan IV 10/16/17 03:19 40 mcg/kg/min .Q7H48M MI 12.846 mls/hr Protocol Administration 40 MCG/KG/MIN Meropenem 500 mg/ Sodium 100 mls @ 100 mls/hr 10/15/17 10:30 10/15/17 11:28 Chloride IVPB 100 mls/hr Q12 MI Administration Protocol Fluconazole 100 mls @ 100 mls/hr 10/15/17 10:30 10/15/17 11:28 Diflucan Iv 200 Mg/100 Ml Ns IVPB 100 mls/hr DAILY MI Administration Insulin Human Lispro 0 units 10/11/17 22:00 10/15/17 11:39 Humalog SC 2 units ACHS MI Administration Protocol Ipratropium Sinclair 0.5 mg 10/12/17 00:00 10/15/17 11:35 Atrovent IH 0.5 mg RQ4 MI Administration Levalbuterol HCl 0.63 mg 10/12/17 00:00 10/15/17 07:20 Xopenex INH 0.63 mg RQ8 MI Administration Levothyroxine Sodium 50 mcg 10/12/17 06:30 10/15/17 09:04 Synthroid PO 50 mcg DAILY@0630 MI Administration Metoprolol Tartrate 25 mg 10/11/17 21:00 10/14/17 09:14 Lopressor PO 25 mg Q12 MI Administration Pantoprazole Sodium 40 mg 10/13/17 09:00 10/15/17 09:05 Protonix Inj IVP 40 mg DAILY MI Administration - Patient Studies Lab Studies: Lab Studies 10/15/17 10/15/17 10/15/17 Range/Units 11:31 06:02 05:22 WBC (4.8-10.8) K/uL RBC (3.80-5.20) Mil/uL Hgb (12.0-16.0) g/dL Hct (34.0-47.0) % MCV (81.0-99.0) fl MCH (27.0-31.0) pg MCHC (33.0-37.0) g/dL RDW (11.5-14.5) % Plt Count (130-400) K/uL MPV (7.2-11.7) fl Neut % (Auto) (50.0-75.0) % Lymph % (Auto) (20.0-40.0) % Geary % (Auto) (0.0-10.0) % Eos % (Auto) (0.0-4.0) % Baso % (Auto) (0.0-2.0) % Neut # (Auto) (1.8-7.0) K/uL Lymph # (Auto) (1.0-4.3) K/uL Geary # (Auto) (0.0-0.8) K/uL Eos # (Auto) (0.0-0.7) K/uL Baso # (Auto) (0.0-0.2) K/uL PT (9.8-13.1) Seconds INR (0.9-1.2) pCO2 30 L (35-45) mm/Hg pO2 67 L (80-100) mm/Hg HCO3 19.1 L (21-28) mmol/L ABG pH 7.36 (7.35-7.45) ABG Total CO2 17.8 L (22-28) mmol/L ABG O2 Saturation 95.7 (95-98) % ABG Base Excess -7.3 L (-2.0-3.0) mmol/L Michael Test Yes ABG Potassium 3.9 (3.6-5.2) mmol/L A-a O2 Difference 252.0 mm/Hg Glucose 145 H (65-105) mg/dL Lactate 4.2 H* (0.7-2.1) mmol/L Vent Mode A/c Mechanical Rate 14 FiO2 50.0 % Tidal Volume 400 PEEP 5 Crit Value Called To Krystyna jiménez rn Crit Value Called By 333 Crit Value Read Back Y Blood Gas Notified Time 527 Sodium 137.0 (132-148) mmol/l Potassium (3.6-5.0) MMOL/L Chloride 109.0 H (98-107) mmol/L Carbon Dioxide (22-30) mmol/L Anion Gap (10-20) BUN (7-17) mg/dl Creatinine (0.7-1.2) mg/dl Est GFR ( Amer) Est GFR (Non-Af Amer) POC Glucose (mg/dL) 213 H 117 H (65-110) mg/dL Random Glucose (65-105) mg/dL Calcium (8.4-10.2) mg/dL Arterial Blood Potassium 3.9 (3.6-5.2) mmol/L 10/15/17 10/15/17 10/15/17 Range/Units 04:45 04:45 04:45 WBC 20.2 H (4.8-10.8) K/uL RBC 2.84 L (3.80-5.20) Mil/uL Hgb 8.5 L (12.0-16.0) g/dL Hct 27.1 L (34.0-47.0) % MCV 95.1 (81.0-99.0) fl MCH 29.9 (27.0-31.0) pg MCHC 31.5 L (33.0-37.0) g/dL RDW 14.2 (11.5-14.5) % Plt Count 226 (130-400) K/uL MPV 9.8 (7.2-11.7) fl Neut % (Auto) 89.0 H (50.0-75.0) % Lymph % (Auto) 4.5 L (20.0-40.0) % Geary % (Auto) 2.1 (0.0-10.0) % Eos % (Auto) 4.3 H (0.0-4.0) % Baso % (Auto) 0.1 (0.0-2.0) % Neut # (Auto) 18.0 H (1.8-7.0) K/uL Lymph # (Auto) 0.9 L (1.0-4.3) K/uL Geary # (Auto) 0.4 (0.0-0.8) K/uL Eos # (Auto) 0.9 H (0.0-0.7) K/uL Baso # (Auto) 0.0 (0.0-0.2) K/uL PT 20.6 H (9.8-13.1) Seconds INR 1.8 H (0.9-1.2) pCO2 (35-45) mm/Hg pO2 (80-100) mm/Hg HCO3 (21-28) mmol/L ABG pH (7.35-7.45) ABG Total CO2 (22-28) mmol/L ABG O2 Saturation (95-98) % ABG Base Excess (-2.0-3.0) mmol/L Michael Test ABG Potassium (3.6-5.2) mmol/L A-a O2 Difference mm/Hg Glucose (65-105) mg/dL Lactate (0.7-2.1) mmol/L Vent Mode Mechanical Rate FiO2 % Tidal Volume PEEP Crit Value Called To Crit Value Called By Crit Value Read Back Blood Gas Notified Time Sodium 139 (132-148) mmol/l Potassium 3.9 (3.6-5.0) MMOL/L Chloride 111 H (98-107) mmol/L Carbon Dioxide 17 L (22-30) mmol/L Anion Gap 15 (10-20) BUN 38 H (7-17) mg/dl Creatinine 1.6 H (0.7-1.2) mg/dl Est GFR ( Amer) 37 Est GFR (Non-Af Amer) 30 POC Glucose (mg/dL) (65-110) mg/dL Random Glucose 148 H (65-105) mg/dL Calcium 7.4 L (8.4-10.2) mg/dL Arterial Blood Potassium (3.6-5.2) mmol/L 10/14/17 10/14/17 Range/Units 21:09 16:57 WBC (4.8-10.8) K/uL RBC (3.80-5.20) Mil/uL Hgb (12.0-16.0) g/dL Hct (34.0-47.0) % MCV (81.0-99.0) fl MCH (27.0-31.0) pg MCHC (33.0-37.0) g/dL RDW (11.5-14.5) % Plt Count (130-400) K/uL MPV (7.2-11.7) fl Neut % (Auto) (50.0-75.0) % Lymph % (Auto) (20.0-40.0) % Geary % (Auto) (0.0-10.0) % Eos % (Auto) (0.0-4.0) % Baso % (Auto) (0.0-2.0) % Neut # (Auto) (1.8-7.0) K/uL Lymph # (Auto) (1.0-4.3) K/uL Geary # (Auto) (0.0-0.8) K/uL Eos # (Auto) (0.0-0.7) K/uL Baso # (Auto) (0.0-0.2) K/uL PT (9.8-13.1) Seconds INR (0.9-1.2) pCO2 (35-45) mm/Hg pO2 (80-100) mm/Hg HCO3 (21-28) mmol/L ABG pH (7.35-7.45) ABG Total CO2 (22-28) mmol/L ABG O2 Saturation (95-98) % ABG Base Excess (-2.0-3.0) mmol/L Michael Test ABG Potassium (3.6-5.2) mmol/L A-a O2 Difference mm/Hg Glucose (65-105) mg/dL Lactate (0.7-2.1) mmol/L Vent Mode Mechanical Rate FiO2 % Tidal Volume PEEP Crit Value Called To Crit Value Called By Crit Value Read Back Blood Gas Notified Time Sodium (132-148) mmol/l Potassium (3.6-5.0) MMOL/L Chloride (98-107) mmol/L Carbon Dioxide (22-30) mmol/L Anion Gap (10-20) BUN (7-17) mg/dl Creatinine (0.7-1.2) mg/dl Est GFR ( Amer) Est GFR (Non-Af Amer) POC Glucose (mg/dL) 152 H 195 H (65-110) mg/dL Random Glucose (65-105) mg/dL Calcium (8.4-10.2) mg/dL Arterial Blood Potassium (3.6-5.2) mmol/L Laboratory Results - last 24 hr 10/14/17 10/14/17 10/15/17 16:57 21:09 04:45 WBC 20.2 H RBC 2.84 L Hgb 8.5 L Hct 27.1 L MCV 95.1 MCH 29.9 MCHC 31.5 L RDW 14.2 Plt Count 226 MPV 9.8 Neut % (Auto) 89.0 H Lymph % (Auto) 4.5 L Geary % (Auto) 2.1 Eos % (Auto) 4.3 H Baso % (Auto) 0.1 Neut # (Auto) 18.0 H Lymph # (Auto) 0.9 L Geary # (Auto) 0.4 Eos # (Auto) 0.9 H Baso # (Auto) 0.0 PT INR pCO2 pO2 HCO3 ABG pH ABG Total CO2 ABG O2 Saturation ABG Base Excess Michael Test ABG Potassium A-a O2 Difference Glucose Lactate Vent Mode Mechanical Rate FiO2 Tidal Volume PEEP Crit Value Called To Crit Value Called By Crit Value Read Back Blood Gas Notified Time Sodium Potassium Chloride Carbon Dioxide Anion Gap BUN Creatinine Est GFR ( Amer) Est GFR (Non-Af Amer) POC Glucose (mg/dL) 195 H 152 H Random Glucose Calcium Arterial Blood Potassium 10/15/17 10/15/17 10/15/17 04:45 04:45 05:22 WBC RBC Hgb Hct MCV MCH MCHC RDW Plt Count MPV Neut % (Auto) Lymph % (Auto) Geary % (Auto) Eos % (Auto) Baso % (Auto) Neut # (Auto) Lymph # (Auto) Geary # (Auto) Eos # (Auto) Baso # (Auto) PT 20.6 H INR 1.8 H pCO2 30 L pO2 67 L HCO3 19.1 L ABG pH 7.36 ABG Total CO2 17.8 L ABG O2 Saturation 95.7 ABG Base Excess -7.3 L Michael Test Yes ABG Potassium 3.9 A-a O2 Difference 252.0 Glucose 145 H Lactate 4.2 H* Vent Mode A/c Mechanical Rate 14 FiO2 50.0 Tidal Volume 400 PEEP 5 Crit Value Called To Krystyna jiménez rn Crit Value Called By 333 Crit Value Read Back Y Blood Gas Notified Time 527 Sodium 139 137.0 Potassium 3.9 Chloride 111 H 109.0 H Carbon Dioxide 17 L Anion Gap 15 BUN 38 H Creatinine 1.6 H Est GFR ( Amer) 37 Est GFR (Non-Af Amer) 30 POC Glucose (mg/dL) Random Glucose 148 H Calcium 7.4 L Arterial Blood Potassium 3.9 10/15/17 10/15/17 06:02 11:31 WBC RBC Hgb Hct MCV MCH MCHC RDW Plt Count MPV Neut % (Auto) Lymph % (Auto) Geary % (Auto) Eos % (Auto) Baso % (Auto) Neut # (Auto) Lymph # (Auto) Geary # (Auto) Eos # (Auto) Baso # (Auto) PT INR pCO2 pO2 HCO3 ABG pH ABG Total CO2 ABG O2 Saturation ABG Base Excess Michael Test ABG Potassium A-a O2 Difference Glucose Lactate Vent Mode Mechanical Rate FiO2 Tidal Volume PEEP Crit Value Called To Crit Value Called By Crit Value Read Back Blood Gas Notified Time Sodium Potassium Chloride Carbon Dioxide Anion Gap BUN Creatinine Est GFR ( Amer) Est GFR (Non-Af Amer) POC Glucose (mg/dL) 117 H 213 H Random Glucose Calcium Arterial Blood Potassium Fingerstick Blood Sugar Results: 213 Review of Systems - Review of Systems Review of Systems: unable to assess because altered mental status Critical Care Progress Note - Nutrition Nutrition: Nutrition Category Date Time Status NPO Diet [DIET] Diets 10/12/17 Breakfast Active Assessment/Plan - Assessment and Plan (Free Text) Plan: Sepsis -SIRS plus Pneumonia -tachypnea, WBC : 20, afebrile, no hypothermia -CBC: WBC: 20, lactate: 4.2 today (2.9 yesterday) -repeat Blood and urine culture today as per ID -Linezolid 600 mg IVPB Q12 day #4 ( started on oct 11 PM) -Azithromycin 500 mg IVPB daily day #4 ( started on oct 12) -start Meropenen with renal adjustment as per ID day #1 -start Diflucan with renal adjustment as per ID day #1 -DC cefepime IV as per ID rec -ID on consult, f/u recs -Pulmonology on consult, f/u recs. Acute hypoxemic respiratory failure secondary Pneumonia in superimposed Influenza infection -unclear etiology, patient was in 3 antibiotics x 4 days and today WBC and lactate getting worse -s/p post-endotracheal tube placement on 10/12/17 and Mechanical ventilation -PRVC AC 14 TV 400 FiO2 70 % PEEP 5, FiO2 decreased to 50 % at 10:10 am, patient saturating at 97-99 % -will continue process of weaning from ventilator -Afebrile, no tachycardic -c/w antibiotics as per ID -Linezolid 600 mg IVPB Q12 day #4 ( started on oct 11 PM) -Azithromycin 500 mg IVPB daily day #4 ( started on oct 12) -start Meropenen with renal adjustment as per ID day #1 -start Diflucan with renal adjustment as per ID day #1 -c/w chest PT and suctioning -c/w nebulizer treatment -f/u CBC, Coag panel, ABG, CXR in AM -DC cefepime IV as per ID rec -DC IV fluids -CXR on 10/13/17 showed mild to moderate improvement in the lungs -ID on consult, f/u recs -Pulmonology on consult, f/u recs. As per Pulmonology no other intervention at this time. C/W with respiratory status monitoring Acute Renal Failure -likely 2/2 sepsis and hypotension -BUN/Cr trending up -today 38/1.6 -BP in low levels, will give fluids, and hold BP med for now -give one bolus of 500 ml NS -will increase fluid maintenance rate -echo done on 10/12/17 reported as normal LV function, normal EF: 60-65 % -f/u BUN/Cr UTI -urine culture positive x Klebsiella -covered with current antibiotics -f/u BMP in AM Hypertension -BP in low levels. SBP: in high 90s low 100s -will hold metoprolol for now -on sedation/mechanical ventilation Diabetes mellitus type 2 -c/w glycemic control Hypokalemia -resolved -K+ today 3.9 Diet -Glucerna by OG tube/ continuous @ 50 cc/hr Prophylaxis -stress ulcer prophylaxis with protonix 40 mg IV QD -DVT prophylaxis with SCDs and lovenox - Date & Time Date: 10/15/17 Time: 09:00 <Bryant Faria - Last Filed: 10/15/17 17:55> CCU Subjective - Physician Review Subjective (Free Text): Attestation: Patient seen and examined at the bedside with Resident Dr. Woody Mascorro; and I agree with her outline of plans and management documented above as discussed on AM rounds reflecting my review of all applicable clinical data, and participation in the care of the patient throughout the day in ICU; October.
--- NOTE | 2017-10-15 12:48 | CP.PCM.CON ---
History of Present Illness - History of Present Illness History of Present Illness: This patient who is a 87 years old I was called for consultation because of rising BUN/creatinine. Patient is on respirator and sedated and the history was taken from the resident as discuss also from the chart. 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 Found to have worsening pneumonia, UTI and Influenza A Placed on droplet isolation Review of Systems - Review of Systems Systems not reviewed;Unavailable: Intubated - Constitutional Constitutional: absent: Chills - EENT Nose/Mouth/Throat: absent: Epistaxis - Cardiovascular Cardiovascular: absent: Acrocyanosis, Edema - Respiratory Respiratory: Cough, Chest Congestion - Gastrointestinal Gastrointestinal: absent: Abdominal Pain, Coffee Ground Emesis, Cramping - Genitourinary Additional comments: oliguria - Musculoskeletal Musculoskeletal: As Per HPI, Muscle Weakness - Integumentary Integumentary: As Per HPI - Neurological Neurological: As Per HPI - Psychiatric Psychiatric: As Per HPI - Endocrine Endocrine: Fatigue Past Patient History - Past Social History Smoking Status: Never Smoked Alcohol: None Drugs: Denies Home Situation {Lives}: With Family - CARDIAC Hx Cardiac Disorders: Yes Hx Hypercholesterolemia: Yes Hx Hypertension: Yes - PULMONARY Hx Respiratory Disorders: Yes Hx Pneumonia: Yes - NEUROLOGICAL Hx Neurological Disorder: No - HEENT Hx HEENT Problems: No - RENAL Hx Chronic Kidney Disease: No - ENDOCRINE/METABOLIC Hx Endocrine Disorders: Yes Hx Diabetes Mellitus Type 2: Yes Hx Hypothyroidism: Yes - HEMATOLOGICAL/ONCOLOGICAL Hx Blood Disorders: No - INTEGUMENTARY Hx Dermatological Problems: No - MUSCULOSKELETAL/RHEUMATOLOGICAL Hx Musculoskeletal Disorders: Yes Hx Falls: Yes - GASTROINTESTINAL Hx Gastrointestinal Disorders: No - GENITOURINARY/GYNECOLOGICAL Hx Genitourinary Disorders: No - PSYCHIATRIC Hx Psychophysiologic Disorder: Yes Hx Anxiety: Yes Hx Substance Use: No Meds Allergies/Adverse Reactions: Allergies Allergy/AdvReac Type Severity Reaction Status Date / Time No Known Allergies Allergy Verified 10/07/17 00:35 - Medications Medications: Current Medications Acetaminophen (Tylenol 325mg Tab) 975 mg PO ONCE PRN PRN Reason: Fever >100.4 F Aspirin (Aspirin Chewable) 81 mg PO DAILY [facility] Last Admin: 10/15/17 09:04 Dose: 81 mg Atorvastatin Calcium (Lipitor) 20 mg PO DAILY [facility] Last Admin: 10/15/17 09:04 Dose: 20 mg Furosemide (Lasix) 60 mg IV ONCE ONE Stop: 10/15/17 12:30 Glipizide (Glucotrol Xl) 2.5 mg PO ACB [place] Last Admin: 10/15/17 09:04 Dose: 2.5 mg Haloperidol Lactate (Haldol) 1 mg IVP Q6 PRN PRN Reason: Agitation Azithromycin 500 mg/ Sodium (Chloride) 250 mls @ 250 mls/hr IVPB DAILY [place] PRN Reason: Protocol Last Admin: 10/15/17 09:05 Dose: 250 mls/hr Linezolid (Zyvox 600mg/300ml D5w) 600 mg in 300 mls @ 300 mls/hr IVPB Q12 [place] PRN Reason: Protocol Last Admin: 10/15/17 09:06 Dose: 300 mls/hr Propofol (Diprivan) 1,000 mg in 100 mls @ 12.846 mls/hr IV .Q7H48M MI; 40 MCG/ KG/MIN PRN Reason: Protocol Stop: 10/16/17 03:19 Last Admin: 10/15/17 11:37 Dose: 40 mcg/kg/min, 12.846 mls/hr Meropenem 500 mg/ Sodium (Chloride) 100 mls @ 100 mls/hr IVPB Q12 [place] PRN Reason: Protocol Last Admin: 10/15/17 11:28 Dose: 100 mls/hr Fluconazole (Diflucan Iv 200 Mg/100 Ml Ns) 100 mls @ 100 mls/hr IVPB DAILY [facility] Last Admin: 10/15/17 11:28 Dose: 100 mls/hr Insulin Human Lispro (Humalog) 0 units SC ACHS MI PRN Reason: Protocol Last Admin: 10/15/17 11:39 Dose: 2 units Ipratropium [place] (Atrovent) 0.5 mg IH RQ4 [facility] Last Admin: 10/15/17 11:35 Dose: 0.5 mg Levalbuterol HCl (Xopenex) 0.63 mg INH RQ8 [facility] Last Admin: 10/15/17 07:20 Dose: 0.63 mg Levothyroxine Sodium (Synthroid) 50 mcg PO DAILY@0630 [facility] Last Admin: 10/15/17 09:04 Dose: 50 mcg Metoprolol Tartrate (Lopressor) 25 mg PO Q12 [facility] Last Admin: 10/14/17 09:14 Dose: 25 mg Pantoprazole Sodium (Protonix Inj) 40 mg IVP DAILY [facility] Last Admin: 10/15/17 09:05 Dose: 40 mg Physical Exam - Constitutional Additional comments: patient intubated and kuldeep - ENT Exam ENT Exam: Mucous Membranes Moist - Neck Exam Neck exam: Negative for: Lymphadenopathy - Respiratory Exam Respiratory Exam: Rhonchi - Cardiovascular Exam Cardiovascular Exam: absent: Gallop, JVD, Rubs - GI/Abdominal Exam GI & Abdominal Exam: Normal Bowel Sounds, Soft - Extremities Exam Extremities exam: Negative for: calf tenderness - Back Exam Back exam: absent: CVA tenderness (L), CVA tenderness (R) - Neurological Exam Neurological exam: Altered - Psychiatric Exam Psychiatric exam: Flat Affect Results - Vital Signs Recent Vital Signs: Last Vital Signs Temp 98.4 F 10/15/17 08:00 Pulse 84 10/15/17 10:00 Resp 30 H 10/15/17 10:00 BP 90/49 L 10/15/17 10:00 Pulse Ox 100 10/15/17 10:00 - Labs Result Diagrams: 10/15/17 04:45 10/15/17 04:45 Labs: Laboratory Results - last 24 hr 10/14/17 10/14/17 10/15/17 16:57 21:09 04:45 WBC 20.2 H RBC 2.84 L Hgb 8.5 L Hct 27.1 L MCV 95.1 MCH 29.9 MCHC 31.5 L RDW 14.2 Plt Count 226 MPV 9.8 Neut % (Auto) 89.0 H Lymph % (Auto) 4.5 L [place] % (Auto) 2.1 Eos % (Auto) 4.3 H Baso % (Auto) 0.1 Neut # (Auto) 18.0 H Lymph # (Auto) 0.9 L [place] # (Auto) 0.4 Eos # (Auto) 0.9 H Baso # (Auto) 0.0 PT INR Fibrinogen D-Dimer, Quantitative pCO2 pO2 HCO3 ABG pH ABG Total CO2 ABG O2 Saturation ABG Base Excess Michael Test ABG Potassium A-a O2 Difference Glucose Lactate Vent Mode Mechanical Rate FiO2 Tidal Volume PEEP Crit Value Called To Crit Value Called By Crit Value Read Back Blood Gas Notified Time Sodium Potassium Chloride Carbon Dioxide Anion Gap BUN Creatinine Est GFR ( Amer) Est GFR (Non-Af Amer) POC Glucose (mg/dL) 195 H 152 H Random Glucose Calcium Arterial Blood Potassium 10/15/17 10/15/17 10/15/17 04:45 04:45 05:22 WBC RBC Hgb Hct MCV MCH MCHC RDW Plt Count MPV Neut % (Auto) Lymph % (Auto) [place] % (Auto) Eos % (Auto) Baso % (Auto) Neut # (Auto) Lymph # (Auto) [place] # (Auto) Eos # (Auto) Baso # (Auto) PT 20.6 H INR 1.8 H Fibrinogen D-Dimer, Quantitative pCO2 30 L pO2 67 L HCO3 19.1 L ABG pH 7.36 ABG Total CO2 17.8 L ABG O2 Saturation 95.7 ABG Base Excess -7.3 L Michael Test Yes ABG Potassium 3.9 A-a O2 Difference 252.0 Glucose 145 H Lactate 4.2 H* Vent Mode A/c Mechanical Rate 14 FiO2 50.0 Tidal Volume 400 PEEP 5 Crit Value Called To Krystyna jiménez rn Crit Value Called By 333 Crit Value Read Back Y Blood Gas Notified Time 527 Sodium 139 137.0 Potassium 3.9 Chloride 111 H 109.0 H Carbon Dioxide 17 L Anion Gap 15 BUN 38 H Creatinine 1.6 H Est GFR ( Amer) 37 Est GFR (Non-Af Amer) 30 POC Glucose (mg/dL) Random Glucose 148 H Calcium 7.4 L Arterial Blood Potassium 3.9 10/15/17 10/15/17 10/15/17 06:02 10:20 10:20 WBC RBC Hgb Hct MCV MCH MCHC RDW Plt Count MPV Neut % (Auto) Lymph % (Auto) [place] % (Auto) Eos % (Auto) Baso % (Auto) Neut # (Auto) Lymph # (Auto) [place] # (Auto) Eos # (Auto) Baso # (Auto) PT INR Fibrinogen 244 D-Dimer, Quantitative 4154 H pCO2 pO2 HCO3 ABG pH ABG Total CO2 ABG O2 Saturation ABG Base Excess Michael Test ABG Potassium A-a O2 Difference Glucose Lactate Vent Mode Mechanical Rate FiO2 Tidal Volume PEEP Crit Value Called To Crit Value Called By Crit Value Read Back Blood Gas Notified Time Sodium Potassium Chloride Carbon Dioxide Anion Gap BUN Creatinine Est GFR ( Amer) Est GFR (Non-Af Amer) POC Glucose (mg/dL) 117 H Random Glucose Calcium Arterial Blood Potassium 10/15/17 11:31 WBC RBC Hgb Hct MCV MCH MCHC RDW Plt Count MPV Neut % (Auto) Lymph % (Auto) [place] % (Auto) Eos % (Auto) Baso % (Auto) Neut # (Auto) Lymph # (Auto) [place] # (Auto) Eos # (Auto) Baso # (Auto) PT INR Fibrinogen D-Dimer, Quantitative pCO2 pO2 HCO3 ABG pH ABG Total CO2 ABG O2 Saturation ABG Base Excess Michael Test ABG Potassium A-a O2 Difference Glucose Lactate Vent Mode Mechanical Rate FiO2 Tidal Volume PEEP Crit Value Called To Crit Value Called By Crit Value Read Back Blood Gas Notified Time Sodium Potassium Chloride Carbon Dioxide Anion Gap BUN Creatinine Est GFR ( Amer) Est GFR (Non-Af Amer) POC Glucose (mg/dL) 213 H Random Glucose Calcium Arterial Blood Potassium Assessment & Plan (1) Influenza A Status: Acute Priority: High (2) Pneumonia Status: Acute Priority: High (3) Respiratory failure Status: Acute (4) Sepsis Status: Acute (5) NAHOMI (acute kidney injury) Assessment and Plan: Patient appeared to have acute kidney injury is related to multifactorial. Patient appeared to be going into septic shock admitted with pneumonia and respiratory failure receiving multiple antibiotics. Urine output decreasing I discussed the case with the aerospace project engineer and suggested to start dopamine and to give Lasix 40 mg IV stat dose and see what happens to the urine output. Patient was given fluid challenge and she has been positive for fluid Stat spot urine for sodium osmolality and creatinine And continue monitor kidney function Prognosis guarded Status: Acute
[2017-10-15] MEDS ORDERED: Chlorhexidine Gluconate 1 APPL/PKT TP ONE (13:47)
--- NOTE | 2017-10-15 13:55 | CP.PCM.PN ---
Subjective - Date & Time of Evaluation Date of Evaluation: 10/15/17 Time of Evaluation: 08:00 - Subjective Subjective: worsening renal functiomn bronchoscopy done cultures pending Objective - Vital Signs/Intake and Output Vital Signs (last 24 hours): Temp Pulse Resp BP Pulse Ox 98.4 F 84 30 H 90/49 L 100 10/15/17 08:00 10/15/17 10:00 10/15/17 10:00 10/15/17 10:00 10/15/17 10:00 Intake and Output: 10/15/17 10/15/17 06:59 18:59 Intake Total 1872 1750 Output Total 250 Balance 1622 1750 - Medications Medications: Current Medications Acetaminophen (Tylenol 325mg Tab) 975 mg PO ONCE PRN PRN Reason: Fever >100.4 F Aspirin (Aspirin Chewable) 81 mg PO DAILY [facility] Last Admin: 10/15/17 09:04 Dose: 81 mg Atorvastatin Calcium (Lipitor) 20 mg PO DAILY [facility] Last Admin: 10/15/17 09:04 Dose: 20 mg Glipizide (Glucotrol Xl) 2.5 mg PO ACB [facility] Last Admin: 10/15/17 09:04 Dose: 2.5 mg Haloperidol Lactate (Haldol) 1 mg IVP Q6 PRN PRN Reason: Agitation Azithromycin 500 mg/ Sodium (Chloride) 250 mls @ 250 mls/hr IVPB DAILY [place] PRN Reason: Protocol Last Admin: 10/15/17 09:05 Dose: 250 mls/hr Linezolid (Zyvox 600mg/300ml D5w) 600 mg in 300 mls @ 300 mls/hr IVPB Q12 [place] PRN Reason: Protocol Last Admin: 10/15/17 09:06 Dose: 300 mls/hr Propofol (Diprivan) 1,000 mg in 100 mls @ 12.846 mls/hr IV .Q7H48M MI; 40 MCG/ KG/MIN PRN Reason: Protocol Stop: 10/16/17 03:19 Last Admin: 10/15/17 11:37 Dose: 40 mcg/kg/min, 12.846 mls/hr Meropenem 500 mg/ Sodium (Chloride) 100 mls @ 100 mls/hr IVPB Q12 [place] PRN Reason: Protocol Last Admin: 10/15/17 11:28 Dose: 100 mls/hr Fluconazole (Diflucan Iv 200 Mg/100 Ml Ns) 100 mls @ 100 mls/hr IVPB DAILY [facility] Last Admin: 10/15/17 11:28 Dose: 100 mls/hr Insulin Human Lispro (Humalog) 0 units SC ACHS [facility] PRN Reason: Protocol Last Admin: 10/15/17 11:39 Dose: 2 units Ipratropium [place] (Atrovent) 0.5 mg IH RQ4 [facility] Last Admin: 10/15/17 11:35 Dose: 0.5 mg Levalbuterol HCl (Xopenex) 0.63 mg INH RQ8 [facility] Last Admin: 10/15/17 07:20 Dose: 0.63 mg Levothyroxine Sodium (Synthroid) 50 mcg PO DAILY@0630 [facility] Last Admin: 10/15/17 09:04 Dose: 50 mcg Metoprolol Tartrate (Lopressor) 25 mg PO Q12 [facility] Last Admin: 10/14/17 09:14 Dose: 25 mg Pantoprazole Sodium (Protonix Inj) 40 mg IVP DAILY [facility] Last Admin: 10/15/17 09:05 Dose: 40 mg - Labs Labs: 10/15/17 04:45 10/15/17 04:45 PT 20.6 Seconds (9.8-13.1) H 10/15/17 04:45 INR 1.8 (0.9-1.2) H 10/15/17 04:45 APTT 33.2 Seconds (25.6-37.1) 10/13/17 04:15 - Constitutional Appears: Cachectic, Chronically Ill - Head Exam Head Exam: NORMOCEPHALIC - Eye Exam Eye Exam: PERRL - ENT Exam ENT Exam: Mucous Membranes Dry - Neck Exam Neck Exam: absent: Lymphadenopathy - Respiratory Exam Respiratory Exam: Decreased Breath Sounds - Cardiovascular Exam Cardiovascular Exam: REGULAR RHYTHM - GI/Abdominal Exam GI & Abdominal Exam: Distended, Soft - Rectal Exam Rectal Exam: Deferred - Exam Exam: NORMAL INSPECTION Assessment and Plan (1) Influenza Status: Acute (2) Pneumonia Status: Acute (3) Sepsis Status: Acute (4) UTI (urinary tract infection) Status: Acute - Assessment and Plan (Free Text) Assessment: iv rx adjusted zyvox/ merrem/ zmax/ diflucan
[2017-10-15] MEDS ORDERED: Sodium Chloride 3% for Inhalation 4 ML VIAL.NEB IH PRN (14:05)
--- NOTE | 2017-10-15 15:44 | CP.PCM.PN ---
Subjective - Date & Time of Evaluation Date of Evaluation: 10/15/17 Time of Evaluation: 10:30 - Subjective Subjective: F/U PNA, Influenza A intubated , sedated Objective - Vital Signs/Intake and Output Vital Signs (last 24 hours): Temp Pulse Resp BP Pulse Ox 98.5 F 94 H 28 H 97/36 L 97 10/15/17 12:00 10/15/17 14:00 10/15/17 14:00 10/15/17 15:22 10/15/17 14:00 Intake and Output: 10/15/17 10/15/17 06:59 18:59 Intake Total 1872 1870 Output Total 250 Balance 1622 1870 - Medications Medications: Current Medications Acetaminophen (Tylenol 325mg Tab) 975 mg PO ONCE PRN PRN Reason: Fever >100.4 F Aspirin (Aspirin Chewable) 81 mg PO DAILY [facility] Last Admin: 10/15/17 09:04 Dose: 81 mg Atorvastatin Calcium (Lipitor) 20 mg PO DAILY [facility] Last Admin: 10/15/17 09:04 Dose: 20 mg Glipizide (Glucotrol Xl) 2.5 mg PO ACB [facility] Last Admin: 10/15/17 09:04 Dose: 2.5 mg Haloperidol Lactate (Haldol) 1 mg IVP Q6 PRN PRN Reason: Agitation Azithromycin 500 mg/ Sodium (Chloride) 250 mls @ 250 mls/hr IVPB DAILY [facility] PRN Reason: Protocol Last Admin: 10/15/17 09:05 Dose: 250 mls/hr Linezolid (Zyvox 600mg/300ml D5w) 600 mg in 300 mls @ 300 mls/hr IVPB Q12 [place] PRN Reason: Protocol Last Admin: 10/15/17 09:06 Dose: 300 mls/hr Propofol (Diprivan) 1,000 mg in 100 mls @ 12.846 mls/hr IV .Q7H48M MI; 40 MCG/ KG/MIN PRN Reason: Protocol Stop: 10/16/17 03:19 Last Admin: 10/15/17 11:37 Dose: 40 mcg/kg/min, 12.846 mls/hr Meropenem 500 mg/ Sodium (Chloride) 100 mls @ 100 mls/hr IVPB Q12 [place] PRN Reason: Protocol Last Admin: 10/15/17 11:28 Dose: 100 mls/hr Fluconazole (Diflucan Iv 200 Mg/100 Ml Ns) 100 mls @ 100 mls/hr IVPB DAILY [facility] Last Admin: 10/15/17 11:28 Dose: 100 mls/hr Insulin Human Lispro (Humalog) 0 units SC ACHS [facility] PRN Reason: Protocol Last Admin: 10/15/17 11:39 Dose: 2 units Ipratropium [place] (Atrovent) 0.5 mg IH RQ4 [facility] Last Admin: 10/15/17 11:35 Dose: 0.5 mg Levalbuterol HCl (Xopenex) 0.63 mg INH RQ8 [facility] Last Admin: 10/15/17 07:20 Dose: 0.63 mg Levothyroxine Sodium (Synthroid) 50 mcg PO DAILY@0630 [facility] Last Admin: 10/15/17 09:04 Dose: 50 mcg Metoprolol Tartrate (Lopressor) 25 mg PO Q12 [facility] Last Admin: 10/14/17 09:14 Dose: 25 mg Pantoprazole Sodium (Protonix Inj) 40 mg IVP DAILY [facility] Last Admin: 10/15/17 09:05 Dose: 40 mg - Labs Labs: 10/15/17 04:45 10/15/17 04:45 PT 20.6 Seconds (9.8-13.1) H 10/15/17 04:45 INR 1.8 (0.9-1.2) H 10/15/17 04:45 APTT 33.2 Seconds (25.6-37.1) 10/13/17 04:15 - Constitutional Appears: Chronically Ill - Head Exam Head Exam: NORMAL INSPECTION - Eye Exam Eye Exam: PERRL - ENT Exam Additional comments: Intubated - Neck Exam Neck Exam: Normal Inspection - Respiratory Exam Respiratory Exam: Decreased Breath Sounds, Rhonchi - Cardiovascular Exam Cardiovascular Exam: REGULAR RHYTHM - GI/Abdominal Exam GI & Abdominal Exam: Soft, Normal Bowel Sounds - Extremities Exam Extremities Exam: Normal Inspection - Back Exam Back Exam: NORMAL INSPECTION - Neurological Exam Additional comments: Intubated , sedated - Skin Skin Exam: Warm Assessment and Plan (1) Pneumonia Status: Acute (2) Influenza A Status: Acute (3) Respiratory failure Status: Acute (4) Sepsis Status: Acute - Assessment and Plan (Free Text) Plan: intubated , sedated , FIO2 50% , on Zithromax, Merrem , Zyvox , Diflucan , for Bronchoscopy today. ICU Time: 42 min. Bronchoscopy report: Pre-Op Dx : Respiratory Failure . Pneumonia Bronchoscopy was done at bedside ICU, Patient was intubated , trough a Swivel adaptor Bronchoscope was introduced and advanced , the distal part of the Tracheal mucosa with increased hyperemia , the Qian was sharp , then Bronchoscope was advanced to left main stem bronchi, then to left upper lobe, then withdrawn and advanced to left lower lobe , the mucosa in all segments with increased hyperemia , vessel engorgement , no endobronchial lesion or extrinsic compression ,there was whitish yellowish secretion in lower lobe basal segment that were aspirated . The bronchoscope was withdrawn and advanced to right main stem bronchi , then into left upper lobe, withdrawn , advanced trough the truncus intermedius to the right middle lobe withdrawn and advanced into the right lower lobe , the mucosa in all segments with increased hyperemia , vessel engorgement no endobronchial lesion or extrinsic compression , there was whitish yellowish secretion in the basal segments of the right lower lobe that were aspirated , then the bronchoscope was withdrawn , at the end of the procedure Patient was in stable condition Post -Op Dx : Same as Pre-Op Complications : None The bonchial washings were forwarded to Lab and Pathology
--- NOTE | 2017-10-15 16:39 | PCM.PROC ---
Procedures Attestation:: I certify that I have explained the specified Operation(s) or Procedure(s), risks, benefits and reasonable alternatives to the Patient and/or other person responsible. The opportunity was given to ask questions and all questions answered - Central Line Placement Right Femoral Triple Lumen Catheter Aseptic technique was employed throughout the procedure: Hand Hygiene done prior to procedure, Full sterile barriers (mask, hair cover, sterile gown, sterile gloves), Chloraprep Antiseptic: 2 minute prep for Femoral CVP Time Out Performed: Yes Pt. Placed on Pulse Ox Monitor: Yes Central Line Prep: Chlorhexidine-Alcohol Combination Ultrasound Used for Placement: No Central Line Lumen Inserted: triple Central Line Length: 20 cm Post Procedure: Sutured in Place, Good Blood Return, All Ports Aspirated, Flushed, Capped, Sterile Dressing Applied Secured by: Securement device Post procedure dressing: Clear vapor permeable Post Procedure X-Ray: No Patient Tolerated Procedure: Well Immediate Complications: None Additional Comments: TLC placed under emergent conditions in ICU vasopressor infusion.
[2017-10-15 18:02] LABS: VENOUS BLOOD GAS BASE EXCESS -8.3 mmol/L (0.0-2.0); VENOUS BLOOD GAS PCO2 30 mmHg (40-60); VENOUS BLOOD GAS PO2 34 mm/Hg (30-55); VENOUS BLOOD PH 7.34 (7.32-7.43)
--- NOTE | 2017-10-15 20:27 | PN ---
DATE: SUBJECTIVE: The patient is still on ventilator, FiO2 of 50%. She is sedated. Blood pressure is borderline low. PHYSICAL EXAMINATION: VITAL SIGNS: Blood pressure 107/40, heart rate 101, temperature 97.8, and respirations 37. HEENT: Pale conjunctivae. CHEST: Bilateral coarse crepitations. HEART: S1 and S2 regular. EXTREMITIES: No edema. LABORATORY DATA: SMA-7; sodium 139, potassium 3.9, chloride 111, CO2 of 17, glucose 148, BUN 38, and creatinine 1.6. Today's lactic acid is 4.8. Hemoglobin and hematocrit 8.5 and 27.1, white count 20.2 and platelet count 226,000. Chest x-ray reveals confluent bilateral infiltrate sparing the left upper lung zone. Associated pleural effusion is a possibility. ASSESSMENT: 1. Bilateral pneumonia and respiratory failure. 2. Borderline troponin elevation. 3. Anemia. 4. Chronic renal insufficiency. 5. Lactic acidosis. 6. Borderline hypertension. RECOMMENDATIONS: Continue current IV Zithromax and IV Zyvox. Continue Synthroid at 50 mcg once a day. Discontinue Lopressor. Continue IV meropenem at 500 mg q.12 hours. Mitchell Hollis MD
[2017-10-15] MEDS ORDERED: Dextrose 50% SYRINGE Inj (50 ml) IVP ONE (22:29)
[2017-10-16] MEDS: Ipratropium 0.02% Inhal Soln (0.5 mg/2.5 ml) UD IH SCH ×6 (00:25→19:30)
[2017-10-16] MEDS: Levalbuterol 0.63 MG/3 ML Inhal Soln UD INH SCH ×3 (00:25→15:08)
--- NOTE | 2017-10-16 00:40 | CP.PCM.PN ---
Subjective - Date & Time of Evaluation Date of Evaluation: 10/15/17 Time of Evaluation: 11:40 Objective - Vital Signs/Intake and Output Vital Signs (last 24 hours): Temp Pulse Resp BP Pulse Ox 97.8 F 99 H 36 H 108/47 L 100 10/15/17 16:39 10/15/17 18:00 10/15/17 18:00 10/15/17 18:00 10/15/17 18:00 Intake and Output: 10/15/17 10/16/17 18:59 06:59 Intake Total 2208 100 Output Total 150 Balance 2058 100 - Medications Medications: Current Medications Acetaminophen (Tylenol 325mg Tab) 975 mg PO ONCE PRN PRN Reason: Fever >100.4 F Aspirin (Aspirin Chewable) 81 mg PO DAILY [facility] Last Admin: 10/15/17 09:04 Dose: 81 mg Atorvastatin Calcium (Lipitor) 20 mg PO DAILY [facility] Last Admin: 10/15/17 09:04 Dose: 20 mg Glipizide (Glucotrol Xl) 2.5 mg PO ACB [facility] Last Admin: 10/15/17 09:04 Dose: 2.5 mg Haloperidol Lactate (Haldol) 1 mg IVP Q6 PRN PRN Reason: Agitation Azithromycin 500 mg/ Sodium (Chloride) 250 mls @ 250 mls/hr IVPB DAILY [place] PRN Reason: Protocol Last Admin: 10/15/17 09:05 Dose: 250 mls/hr Propofol (Diprivan) 1,000 mg in 100 mls @ 12.846 mls/hr IV .Q7H48M [place]; 40 MCG/ KG/MIN PRN Reason: Protocol Stop: 10/16/17 03:19 Last Admin: 10/15/17 23:36 Dose: 40 mcg/kg/min, 12.846 mls/hr Meropenem 500 mg/ Sodium (Chloride) 100 mls @ 100 mls/hr IVPB Q12 [place] PRN Reason: Protocol Last Admin: 10/15/17 21:29 Dose: 100 mls/hr Fluconazole (Diflucan Iv 200 Mg/100 Ml Ns) 100 mls @ 100 mls/hr IVPB DAILY [facility] Last Admin: 10/15/17 11:28 Dose: 100 mls/hr Linezolid (Zyvox 600mg/300ml D5w) 600 mg in 300 mls @ 300 mls/hr IVPB Q12 [place] PRN Reason: Protocol Last Admin: 10/15/17 21:32 Dose: 300 mls/hr Insulin Human Lispro (Humalog) 0 units SC ACHS [place] PRN Reason: Protocol Last Admin: 10/15/17 22:03 Dose: Not Given Ipratropium [place] (Atrovent) 0.5 mg IH RQ4 [place] Last Admin: 10/16/17 00:25 Dose: 0.5 mg Levalbuterol HCl (Xopenex) 0.63 mg INH RQ8 [place] Last Admin: 10/16/17 00:25 Dose: 0.63 mg Levothyroxine Sodium (Synthroid) 50 mcg PO DAILY@0630 [facility] Last Admin: 10/15/17 09:04 Dose: 50 mcg Pantoprazole Sodium (Protonix Inj) 40 mg IVP DAILY [facility] Last Admin: 10/15/17 09:05 Dose: 40 mg - Labs Labs: 10/15/17 04:45 10/15/17 04:45 PT 20.6 Seconds (9.8-13.1) H 10/15/17 04:45 INR 1.8 (0.9-1.2) H 10/15/17 04:45 APTT 33.2 Seconds (25.6-37.1) 10/13/17 04:15
[2017-10-16 04:45] LABS: ABG ALLEN TEST YES; ARTERIAL BLOOD GAS HCO3 16.6 mmol/L (21-28); ARTERIAL BLOOD GAS O2 SAT 100.7 % (95-98); ARTERIAL BLOOD GAS PCO2 24 mm/Hg (35-45); ARTERIAL BLOOD GAS PH 7.35 (7.35-7.45); ARTERIAL BLOOD GAS PO2 69 mm/Hg (80-100); ARTERIAL BLOOD GAS TCO2 13.9 mmol/L (22-28)
[2017-10-16] MEDS: Levothyroxine 50 MCG TAB PO SCH (05:33)
[2017-10-16 05:56] LABS: BASO % 0.1 % (0.0-2.0); EOS # 0.7 K/uL (0.0-0.7); EOS % 3.1 % (0.0-4.0); HEMOGLOBIN 8.2 g/dL (12.0-16.0); LYMPH # 0.9 K/uL (1.0-4.3); LYMPH % 3.7 % (20.0-40.0); MEAN CELL VOLUME 95.1 fl (81.0-99.0); MEAN CORPUSCULAR HEMOGLOBIN 29.9 pg (27.0-31.0); MEAN CORPUSCULAR HGB CONC 31.4 g/dL (33.0-37.0); MEAN PLATELET VOLUME 9.9 fl (7.2-11.7); MONO # 0.6 K/uL (0.0-0.8); MONO % 2.7 % (0.0-10.0); NEUT # 21.2 K/uL (1.8-7.0); NEUT % 90.4 % (50.0-75.0); PLATELET COUNT 205 K/uL (130-400); RBC 2.74 Mil/uL (3.80-5.20); RED CELL DISTRIBUTION WIDTH 14.3 % (11.5-14.5); WHITE BLOOD COUNT 23.4 K/uL (4.8-10.8)
[2017-10-16] MEDS: Fluconazole IV 200mg/100 ml NS 100 ML IVPB SCH (08:46)
[2017-10-16] MEDS: GlipiZIDE 2.5 mg SR Tab PO SCH (08:46)
[2017-10-16] MEDS: Insulin Lispro (humaLOG) 100 Units/ml Inj SC SCH ×4 (08:47→22:11)
[2017-10-16] MEDS: Meropenem 500 MG in Sodium Chloride 0.9% 100 ML IVPB SCH ×2 (08:47→22:50)
[2017-10-16] MEDS: Linezolid 600 mg in D5W 300 ml 600 MG/300 ML BAG IVPB SCH (08:48)
[2017-10-16] MEDS: Azithromycin 500 MG in Sodium Chloride 0.9% 250 ML IVPB SCH (08:49)
--- NOTE | 2017-10-16 10:54 | CP.PCM.PN ---
Subjective - Date & Time of Evaluation Date of Evaluation: 10/16/17 Time of Evaluation: 10:54 - Subjective Subjective: RENAL FOLLOW UP S: seen and examined, remains critically ill O: Vs reviewed as below gen: intubated and sedated sclera: anicteric op: et tube neck supple cv: +S1+s2 lungs coarse bs abd: soft ext: no edema neuro: opens eyes to voice psych: flat skin no rash imp: arf / septic shock / pneumonia / anemia/hypoxic respiratory failure plan: NAHOMI - cr worsening, remain oliguric, recc consider pressors given some of the dips in bp and consider blood transfusion to see if improves renal perfusion and hypotension dose abx per egfr vent weaning per primary continue supportive care 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 Objective - Vital Signs/Intake and Output Vital Signs (last 24 hours): Temp Pulse Resp BP Pulse Ox 97.5 F L 103 H 29 H 110/43 L 95 10/16/17 08:00 10/16/17 08:00 10/16/17 08:00 10/16/17 08:00 10/16/17 08:00 Intake and Output: 10/16/17 10/16/17 06:59 18:59 Intake Total 1638 19 Output Total 200 Balance 1438 19 - Medications Medications: Current Medications Acetaminophen (Tylenol 325mg Tab) 975 mg PO ONCE PRN PRN Reason: Fever >100.4 F Aspirin (Aspirin Chewable) 81 mg PO DAILY [facility] Last Admin: 10/16/17 08:46 Dose: 81 mg Atorvastatin Calcium (Lipitor) 20 mg PO DAILY [facility] Last Admin: 10/16/17 08:47 Dose: 20 mg Glipizide (Glucotrol Xl) 2.5 mg PO ACB [facility] Last Admin: 10/16/17 08:46 Dose: Not Given Haloperidol Lactate (Haldol) 1 mg IVP Q6 PRN PRN Reason: Agitation Azithromycin 500 mg/ Sodium (Chloride) 250 mls @ 250 mls/hr IVPB DAILY [place] PRN Reason: Protocol Last Admin: 10/16/17 08:49 Dose: 250 mls/hr Meropenem 500 mg/ Sodium (Chloride) 100 mls @ 100 mls/hr IVPB Q12 [place] PRN Reason: Protocol Last Admin: 10/16/17 08:47 Dose: 100 mls/hr Fluconazole (Diflucan Iv 200 Mg/100 Ml Ns) 100 mls @ 100 mls/hr IVPB DAILY [facility] Last Admin: 10/16/17 08:46 Dose: 100 mls/hr Linezolid (Zyvox 600mg/300ml D5w) 600 mg in 300 mls @ 300 mls/hr IVPB Q12 [place] PRN Reason: Protocol Last Admin: 10/16/17 08:48 Dose: 300 mls/hr Insulin Human Lispro (Humalog) 0 units SC ACHS MI PRN Reason: Protocol Last Admin: 10/16/17 08:47 Dose: Not Given Ipratropium [place] (Atrovent) 0.5 mg IH RQ4 [facility] Last Admin: 10/16/17 07:23 Dose: 0.5 mg Levalbuterol HCl (Xopenex) 0.63 mg INH RQ8 [facility] Last Admin: 10/16/17 07:23 Dose: 0.63 mg Levothyroxine Sodium (Synthroid) 50 mcg PO DAILY@0630 [facility] Last Admin: 10/16/17 05:33 Dose: 50 mcg Pantoprazole Sodium (Protonix Inj) 40 mg IVP DAILY [facility] Last Admin: 10/16/17 08:47 Dose: 40 mg - Labs Labs: 10/16/17 04:50 10/16/17 04:50 PT 20.6 Seconds (9.8-13.1) H 10/15/17 04:45 INR 1.8 (0.9-1.2) H 10/15/17 04:45 APTT 33.2 Seconds (25.6-37.1) 10/13/17 04:15
[2017-10-16] MEDS ORDERED: Dextrose 50% SYRINGE Inj (50 ml) ONE (11:15)
--- NOTE | 2017-10-16 11:28 | RAD ---
PROCEDURE: CHEST RADIOGRAPH, 1 VIEW HISTORY: endotracheal intubation/ mechanical ventilation COMPARISON: Comparison made with chest radiograph 10/15/2017 at 4:25 a.m.. FINDINGS: In situ ETT, the tip of which appears to lie approximately 3.56 cm above emmanuel. In situ Jamil GT, tip of which appears to overlie in the right upper quadrant of the abdomen LUNGS: Both lung apices are partially obscured by overlying facial soft tissue and mandible artifact right greater than left. Diffuse patchy bilateral infiltrates again noted. Questionable bilateral effusions. PLEURA: . As above. No apparent pneumothorax Heart size unchanged. OSSEOUS STRUCTURES: No significant abnormalities. VISUALIZED UPPER ABDOMEN: Normal. OTHER FINDINGS: None. IMPRESSION: ETT and NGT as above. Limited study due to partial obscuration of both lung apices right more so than left Diffuse patchy bilateral infiltrates with questionable small bilateral effusions.
[2017-10-16 12:35] LABS: BANDS 2 % (0-2); LYMPHOCYTE 2 % (20-50); MONOCYTE 1 % (0-10); NEUTROPHIL 95 % (42-75); TOTAL CELLS COUNTED 100
[2017-10-16 12:36] LABS: PLATELET ESTIMATE NORMAL (NORMAL)
[2017-10-16 12:37] LABS: ANISOCYTOSIS SLIGHT; BURR CELLS SLIGHT; GIANT PLATELETS PRESENT; HYPOCHROMIC SLIGHT; LARGE PLATELETS PRESENT; POIKILOCYTOSIS SLIGHT
[2017-10-16 12:38] LABS: OVALOCYTES SLIGHT
[2017-10-16] MEDS: Propofol 10 mg/ml 1,000 MG/100 ML VIAL IV SCH (12:40)
--- NOTE | 2017-10-16 16:08 | CP.PCM.PN ---
Subjective - Date & Time of Evaluation Date of Evaluation: 10/16/17 Time of Evaluation: 12:20 - Subjective Subjective: F/U PNA intubated , sedated Objective - Vital Signs/Intake and Output Vital Signs (last 24 hours): Temp Pulse Resp BP Pulse Ox 97.4 F L 93 H 32 H 97/42 L 99 10/16/17 12:00 10/16/17 14:00 10/16/17 14:00 10/16/17 14:00 10/16/17 14:00 Intake and Output: 10/16/17 10/16/17 06:59 18:59 Intake Total 1638 776 Output Total 200 500 Balance 1438 276 - Medications Medications: Current Medications Acetaminophen (Tylenol 325mg Tab) 975 mg PO ONCE PRN PRN Reason: Fever >100.4 F Aspirin (Aspirin Chewable) 81 mg PO DAILY [facility] Last Admin: 10/16/17 08:46 Dose: 81 mg Atorvastatin Calcium (Lipitor) 20 mg PO DAILY [facility] Last Admin: 10/16/17 08:47 Dose: 20 mg Glipizide (Glucotrol Xl) 2.5 mg PO ACB [facility] Last Admin: 10/16/17 08:46 Dose: Not Given Haloperidol Lactate (Haldol) 1 mg IVP Q6 PRN PRN Reason: Agitation Azithromycin 500 mg/ Sodium (Chloride) 250 mls @ 250 mls/hr IVPB DAILY [facility] PRN Reason: Protocol Last Admin: 10/16/17 08:49 Dose: 250 mls/hr Meropenem 500 mg/ Sodium (Chloride) 100 mls @ 100 mls/hr IVPB Q12 [place] PRN Reason: Protocol Last Admin: 10/16/17 08:47 Dose: 100 mls/hr Fluconazole (Diflucan Iv 200 Mg/100 Ml Ns) 100 mls @ 100 mls/hr IVPB DAILY [facility] Last Admin: 10/16/17 08:46 Dose: 100 mls/hr Linezolid (Zyvox 600mg/300ml D5w) 600 mg in 300 mls @ 300 mls/hr IVPB Q12 [place] PRN Reason: Protocol Last Admin: 10/16/17 08:48 Dose: 300 mls/hr Insulin Human Lispro (Humalog) 0 units SC ACHS MI PRN Reason: Protocol Last Admin: 10/16/17 11:11 Dose: Not Given Ipratropium [place] (Atrovent) 0.5 mg IH RQ4 [facility] Last Admin: 10/16/17 15:08 Dose: 0.5 mg Levalbuterol HCl (Xopenex) 0.63 mg INH RQ8 [facility] Last Admin: 10/16/17 15:08 Dose: 0.63 mg Levothyroxine Sodium (Synthroid) 50 mcg PO DAILY@0630 [facility] Last Admin: 10/16/17 05:33 Dose: 50 mcg Pantoprazole Sodium (Protonix Inj) 40 mg IVP DAILY [facility] Last Admin: 10/16/17 08:47 Dose: 40 mg - Labs Labs: 10/16/17 04:50 10/16/17 04:50 PT 20.6 Seconds (9.8-13.1) H 10/15/17 04:45 INR 1.8 (0.9-1.2) H 10/15/17 04:45 APTT 33.2 Seconds (25.6-37.1) 10/13/17 04:15 - Constitutional Appears: No Acute Distress, Chronically Ill - Head Exam Head Exam: NORMAL INSPECTION - Eye Exam Eye Exam: PERRL - ENT Exam Additional comments: Intubated - Neck Exam Neck Exam: Normal Inspection - Respiratory Exam Respiratory Exam: Decreased Breath Sounds, Rhonchi - Cardiovascular Exam Cardiovascular Exam: REGULAR RHYTHM - GI/Abdominal Exam GI & Abdominal Exam: Soft, Normal Bowel Sounds - Extremities Exam Extremities Exam: Normal Inspection - Neurological Exam Neurological Exam: Awake Additional comments: Intubated, sedated - Skin Skin Exam: Warm Assessment and Plan (1) Pneumonia Status: Acute (2) Influenza A Status: Acute (3) Respiratory failure Status: Acute (4) Sepsis Status: Acute (5) Anemia Status: Acute - Assessment and Plan (Free Text) Plan: s/p Bronchoscopy, continue vemtilatory support , patient on Zithromax , Merren , Zyvox , monitor Hgb ICU Time: 40 min.
[2017-10-16] MEDS ORDERED: DOPamine 400mg/250ml D5W 400 MG/250 ML BAG IV ONE (18:45)
[2017-10-16] MEDS ORDERED: Dextrose 50% SYRINGE Inj (50 ml) IVP ONE (21:25)
--- NOTE | 2017-10-16 23:59 | CP.PCM.PN ---
Subjective - Date & Time of Evaluation Date of Evaluation: 10/16/17 Time of Evaluation: 18:50 Objective - Vital Signs/Intake and Output Vital Signs (last 24 hours): Temp Pulse Resp BP Pulse Ox 97.1 F L 138 H 30 H 172/59 H 92 L 10/16/17 20:18 10/16/17 22:00 10/16/17 22:00 10/16/17 22:00 10/16/17 22:00 Intake and Output: 10/16/17 10/17/17 18:59 06:59 Intake Total 814 26 Output Total 750 25 Balance 64 1 - Medications Medications: Current Medications Acetaminophen (Tylenol 325mg Tab) 975 mg PO ONCE PRN PRN Reason: Fever >100.4 F Aspirin (Aspirin Chewable) 81 mg PO DAILY [facility] Last Admin: 10/16/17 08:46 Dose: 81 mg Atorvastatin Calcium (Lipitor) 20 mg PO DAILY [facility] Last Admin: 10/16/17 08:47 Dose: 20 mg Glipizide (Glucotrol Xl) 2.5 mg PO ACB [facility] Last Admin: 10/16/17 08:46 Dose: Not Given Haloperidol Lactate (Haldol) 1 mg IVP Q6 PRN PRN Reason: Agitation Azithromycin 500 mg/ Sodium (Chloride) 250 mls @ 250 mls/hr IVPB DAILY [place] PRN Reason: Protocol Last Admin: 10/16/17 08:49 Dose: 250 mls/hr Meropenem 500 mg/ Sodium (Chloride) 100 mls @ 100 mls/hr IVPB Q12 [place] PRN Reason: Protocol Last Admin: 10/16/17 22:50 Dose: 100 mls/hr Fluconazole (Diflucan Iv 200 Mg/100 Ml Ns) 100 mls @ 100 mls/hr IVPB DAILY [facility] Last Admin: 10/16/17 08:46 Dose: 100 mls/hr Linezolid (Zyvox 600mg/300ml D5w) 600 mg in 300 mls @ 300 mls/hr IVPB Q12 [place] PRN Reason: Protocol Last Admin: 10/16/17 08:48 Dose: 300 mls/hr Insulin Human Lispro (Humalog) 0 units SC ACHS MI PRN Reason: Protocol Last Admin: 10/16/17 22:11 Dose: Not Given Ipratropium [place] (Atrovent) 0.5 mg IH RQ4 [place] Last Admin: 10/16/17 19:30 Dose: 0.5 mg Levalbuterol HCl (Xopenex) 0.63 mg INH RQ8 [facility] Last Admin: 10/16/17 15:08 Dose: 0.63 mg Levothyroxine Sodium (Synthroid) 50 mcg PO DAILY@0630 [facility] Last Admin: 10/16/17 05:33 Dose: 50 mcg Pantoprazole Sodium (Protonix Inj) 40 mg IVP DAILY [facility] Last Admin: 10/16/17 08:47 Dose: 40 mg - Labs Labs: 10/16/17 04:50 10/16/17 04:50 PT 20.6 Seconds (9.8-13.1) H 10/15/17 04:45 INR 1.8 (0.9-1.2) H 10/15/17 04:45 APTT 33.2 Seconds (25.6-37.1) 10/13/17 04:15
[2017-10-17] MEDS: Ipratropium 0.02% Inhal Soln (0.5 mg/2.5 ml) UD IH SCH ×7 (00:36→23:38)
[2017-10-17] MEDS: Levalbuterol 0.63 MG/3 ML Inhal Soln UD INH SCH ×4 (00:36→23:39)
[2017-10-17 05:42] LABS: ABG ALLEN TEST YES; ARTERIAL BLOOD GAS HCO3 18.5 mmol/L (21-28); ARTERIAL BLOOD GAS HEMOGLOBIN 8.8 g/dL (11.7-17.4); ARTERIAL BLOOD GAS O2 CAPACITY 12.1 mL/dL (16-24); ARTERIAL BLOOD GAS O2 CONTENT 11.4 ML/dL (15-23); ARTERIAL BLOOD GAS PCO2 29 mm/Hg (35-45); ARTERIAL BLOOD GAS PH 7.36 (7.35-7.45); ARTERIAL BLOOD GAS PO2 56 mm/Hg (80-100); ARTERIAL BLOOD GAS TCO2 17.3 mmol/L (22-28)
[2017-10-17] MEDS ORDERED: Dextrose 50% SYRINGE Inj (50 ml) IVP ONE ×3 (06:19→16:38)
[2017-10-17 07:06] LABS: MEAN CELL VOLUME 94.3 fl (81.0-99.0); MEAN CORPUSCULAR HEMOGLOBIN 29.5 pg (27.0-31.0); MEAN CORPUSCULAR HGB CONC 31.3 g/dL (33.0-37.0); RBC 2.72 Mil/uL (3.80-5.20); RED CELL DISTRIBUTION WIDTH 14.2 % (11.5-14.5); WHITE BLOOD COUNT 21.9 K/uL (4.8-10.8)
[2017-10-17 07:31] LABS: ALB/GLOB RATIO 0.5 (1.0-2.1); ALBUMIN 1.9 g/dL (3.5-5.0); CALCIUM 7.9 mg/dL (8.4-10.2)
[2017-10-17] MEDS: Insulin Lispro (humaLOG) 100 Units/ml Inj SC SCH ×4 (07:51→22:00)
[2017-10-17] MEDS: Levothyroxine 50 MCG TAB PO SCH (08:20)
[2017-10-17] MEDS: Meropenem 500 MG in Sodium Chloride 0.9% 100 ML IVPB SCH ×2 (08:22→22:35)
[2017-10-17] MEDS: Fluconazole IV 200mg/100 ml NS 100 ML IVPB SCH (09:49)
[2017-10-17] MEDS: Azithromycin 500 MG in Sodium Chloride 0.9% 250 ML IVPB SCH (10:43)
[2017-10-17] MEDS ORDERED: Propofol 10 mg/ml 1,000 MG/100 ML VIAL ONE (10:59)
[2017-10-17] MEDS ORDERED: Propofol 10 mg/ml 1,000 MG/100 ML VIAL IV SCH (11:15)
[2017-10-17] MEDS: Linezolid 600 mg in D5W 300 ml 600 MG/300 ML BAG IVPB SCH ×2 (12:44→22:38)
--- NOTE | 2017-10-17 13:25 | CP.PCM.PN ---
Subjective - Date & Time of Evaluation Date of Evaluation: 10/17/17 Time of Evaluation: 08:00 - Subjective Subjective: remains intubated weak and lethargic on vent nad no new cultures Objective - Vital Signs/Intake and Output Vital Signs (last 24 hours): Temp Pulse Resp BP Pulse Ox 96.6 F L 100 H 28 H 107/43 L 100 10/17/17 12:00 10/17/17 12:00 10/17/17 12:00 10/17/17 12:00 10/17/17 12:00 Intake and Output: 10/17/17 10/17/17 06:59 18:59 Intake Total 752 700 Output Total 280 Balance 472 700 - Medications Medications: Current Medications Acetaminophen (Tylenol 325mg Tab) 975 mg PO ONCE PRN PRN Reason: Fever >100.4 F Aspirin (Aspirin Chewable) 81 mg PO DAILY [facility] Last Admin: 10/17/17 08:20 Dose: 81 mg Atorvastatin Calcium (Lipitor) 20 mg PO DAILY [facility] Last Admin: 10/17/17 08:20 Dose: 20 mg Haloperidol Lactate (Haldol) 1 mg IVP Q6 PRN PRN Reason: Agitation Meropenem 500 mg/ Sodium (Chloride) 100 mls @ 100 mls/hr IVPB Q12 [place] PRN Reason: Protocol Last Admin: 10/17/17 08:22 Dose: 100 mls/hr Fluconazole (Diflucan Iv 200 Mg/100 Ml Ns) 100 mls @ 100 mls/hr IVPB DAILY [facility] Last Admin: 10/17/17 09:49 Dose: 100 mls/hr Linezolid (Zyvox 600mg/300ml D5w) 600 mg in 300 mls @ 300 mls/hr IVPB Q12 [place] PRN Reason: Protocol Last Admin: 10/17/17 12:44 Dose: 300 mls/hr Propofol (Diprivan) 1,000 mg in 100 mls @ 1.837 mls/hr IV .Q24H MI; 5 MCG/KG/ MIN PRN Reason: Protocol Stop: 10/18/17 11:02 Last Admin: 10/17/17 11:07 Dose: 25 mcg/kg/min, 9.185 mls/hr Insulin Human Lispro (Humalog) 0 units SC ACHS MI PRN Reason: Protocol Last Admin: 10/17/17 11:32 Dose: Not Given Ipratropium [place] (Atrovent) 0.5 mg IH RQ4 [facility] Last Admin: 10/17/17 11:03 Dose: 0.5 mg Levalbuterol HCl (Xopenex) 0.63 mg INH RQ8 [facility] Last Admin: 10/17/17 07:05 Dose: 0.63 mg Levothyroxine Sodium (Synthroid) 50 mcg PO DAILY@0630 [facility] Last Admin: 10/17/17 08:20 Dose: 50 mcg Pantoprazole Sodium (Protonix Inj) 40 mg IVP DAILY [facility] Last Admin: 10/17/17 08:19 Dose: 40 mg - Labs Labs: 10/17/17 06:00 10/17/17 06:00 PT 20.6 Seconds (9.8-13.1) H 10/15/17 04:45 INR 1.8 (0.9-1.2) H 10/15/17 04:45 APTT 33.2 Seconds (25.6-37.1) 10/13/17 04:15 - Constitutional Appears: Confused, Cachectic, Chronically Ill - Head Exam Head Exam: NORMOCEPHALIC - Eye Exam Eye Exam: PERRL. absent: Scleral icterus - ENT Exam ENT Exam: Mucous Membranes Dry - Neck Exam Neck Exam: absent: Lymphadenopathy - Respiratory Exam Respiratory Exam: Decreased Breath Sounds, Rhonchi - Cardiovascular Exam Cardiovascular Exam: REGULAR RHYTHM - GI/Abdominal Exam GI & Abdominal Exam: Distended, Soft - Rectal Exam Rectal Exam: Deferred - Exam Exam: NORMAL INSPECTION - Extremities Exam Extremities Exam: absent: Pedal Edema - Back Exam Back Exam: absent: CVA tenderness (L), CVA tenderness (R) - Neurological Exam Neurological Exam: Altered - Psychiatric Exam Psychiatric exam: Depressed - Skin Skin Exam: Dry Assessment and Plan (1) Influenza Status: Acute (2) Pneumonia Status: Acute (3) Sepsis Status: Acute (4) UTI (urinary tract infection) Status: Acute - Assessment and Plan (Free Text) Assessment: no new positive cultures cont empiric rx s/p bronchoscopy poor prognosis
--- NOTE | 2017-10-17 13:58 | CP.PCM.PN ---
Subjective - Date & Time of Evaluation Date of Evaluation: 10/17/17 Time of Evaluation: 13:57 - Subjective Subjective: RENAL FOLLOW UP S: seen and examined, remains critically ill on vent O: Vs reviewed as below gen: intubated and sedated sclera: anicteric op: et tube neck supple cv: +S1+s2 lungs coarse bs abd: soft ext: no edema neuro: opens eyes to voice psych: flat skin no rash imp: arf / septic shock / pneumonia / anemia/hypoxic respiratory failure plan: NAHOMI - cr worsening however uop is improving. 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 Objective - Vital Signs/Intake and Output Vital Signs (last 24 hours): Temp Pulse Resp BP Pulse Ox 96.6 F L 100 H 28 H 107/43 L 100 10/17/17 12:00 10/17/17 12:00 10/17/17 12:00 10/17/17 12:00 10/17/17 12:00 Intake and Output: 10/17/17 10/17/17 06:59 18:59 Intake Total 752 700 Output Total 280 Balance 472 700 - Medications Medications: Current Medications Acetaminophen (Tylenol 325mg Tab) 975 mg PO ONCE PRN PRN Reason: Fever >100.4 F Aspirin (Aspirin Chewable) 81 mg PO DAILY [facility] Last Admin: 10/17/17 08:20 Dose: 81 mg Atorvastatin Calcium (Lipitor) 20 mg PO DAILY [facility] Last Admin: 10/17/17 08:20 Dose: 20 mg Haloperidol Lactate (Haldol) 1 mg IVP Q6 PRN PRN Reason: Agitation Meropenem 500 mg/ Sodium (Chloride) 100 mls @ 100 mls/hr IVPB Q12 [place] PRN Reason: Protocol Last Admin: 10/17/17 08:22 Dose: 100 mls/hr Fluconazole (Diflucan Iv 200 Mg/100 Ml Ns) 100 mls @ 100 mls/hr IVPB DAILY [facility] Last Admin: 10/17/17 09:49 Dose: 100 mls/hr Linezolid (Zyvox 600mg/300ml D5w) 600 mg in 300 mls @ 300 mls/hr IVPB Q12 [place] PRN Reason: Protocol Last Admin: 10/17/17 12:44 Dose: 300 mls/hr Propofol (Diprivan) 1,000 mg in 100 mls @ 1.837 mls/hr IV .Q24H MI; 5 MCG/KG/ MIN PRN Reason: Protocol Stop: 10/18/17 11:02 Last Admin: 10/17/17 11:07 Dose: 25 mcg/kg/min, 9.185 mls/hr Insulin Human Lispro (Humalog) 0 units SC ACHS MI PRN Reason: Protocol Last Admin: 10/17/17 11:32 Dose: Not Given Ipratropium [place] (Atrovent) 0.5 mg IH RQ4 [facility] Last Admin: 10/17/17 11:03 Dose: 0.5 mg Levalbuterol HCl (Xopenex) 0.63 mg INH RQ8 [facility] Last Admin: 10/17/17 07:05 Dose: 0.63 mg Levothyroxine Sodium (Synthroid) 50 mcg PO DAILY@0630 [facility] Last Admin: 10/17/17 08:20 Dose: 50 mcg Pantoprazole Sodium (Protonix Inj) 40 mg IVP DAILY [facility] Last Admin: 10/17/17 08:19 Dose: 40 mg - Labs Labs: 10/17/17 06:00 10/17/17 06:00 PT 20.6 Seconds (9.8-13.1) H 10/15/17 04:45 INR 1.8 (0.9-1.2) H 10/15/17 04:45 APTT 33.2 Seconds (25.6-37.1) 10/13/17 04:15
--- NOTE | 2017-10-17 15:16 | RAD ---
PROCEDURE: CHEST RADIOGRAPH, 1 VIEW HISTORY: intubated, on vent, pneumonia COMPARISON: 10/16/2017 FINDINGS: LUNGS: Extensive bilateral pulmonary opacity. Nonspecific. Infectious versus inflammatory versus pulmonary edema. PLEURA: No pneumothorax or pleural fluid seen. CARDIOVASCULAR: Normal heart size. ET tube and NG tube are in grossly appropriate position. OSSEOUS STRUCTURES: No significant abnormalities. VISUALIZED UPPER ABDOMEN: Normal. OTHER FINDINGS: None. IMPRESSION: Extensive bilateral pulmonary opacity. Possible diffuse pneumonia. No significant change in appearance compared to prior examination.
[2017-10-17] MEDS ORDERED: methylPREDNISolone 40 MG in Sodium Chloride 0.9% 50 ML IVPB SCH (16:00)
--- NOTE | 2017-10-17 16:01 | CP.PCM.PN ---
Subjective - Date & Time of Evaluation Date of Evaluation: 10/17/17 Time of Evaluation: 14:40 - Subjective Subjective: F/U PNA intubated , sedated Objective - Vital Signs/Intake and Output Vital Signs (last 24 hours): Temp Pulse Resp BP Pulse Ox 96.6 F L 102 H 22 120/46 L 100 10/17/17 12:00 10/17/17 15:00 10/17/17 15:00 10/17/17 15:00 10/17/17 15:00 Intake and Output: 10/17/17 10/17/17 06:59 18:59 Intake Total 752 1000 Output Total 280 Balance 472 1000 - Medications Medications: Current Medications Acetaminophen (Tylenol 325mg Tab) 975 mg PO ONCE PRN PRN Reason: Fever >100.4 F Aspirin (Aspirin Chewable) 81 mg PO DAILY [facility] Last Admin: 10/17/17 08:20 Dose: 81 mg Atorvastatin Calcium (Lipitor) 20 mg PO DAILY [facility] Last Admin: 10/17/17 08:20 Dose: 20 mg Haloperidol Lactate (Haldol) 1 mg IVP Q6 PRN PRN Reason: Agitation Meropenem 500 mg/ Sodium (Chloride) 100 mls @ 100 mls/hr IVPB Q12 [place] PRN Reason: Protocol Last Admin: 10/17/17 08:22 Dose: 100 mls/hr Fluconazole (Diflucan Iv 200 Mg/100 Ml Ns) 100 mls @ 100 mls/hr IVPB DAILY [facility] Last Admin: 10/17/17 09:49 Dose: 100 mls/hr Linezolid (Zyvox 600mg/300ml D5w) 600 mg in 300 mls @ 300 mls/hr IVPB Q12 [place] PRN Reason: Protocol Last Admin: 10/17/17 12:44 Dose: 300 mls/hr Propofol (Diprivan) 1,000 mg in 100 mls @ 1.837 mls/hr IV .Q24H MI; 5 MCG/KG/ MIN PRN Reason: Protocol Stop: 10/18/17 11:02 Last Admin: 10/17/17 11:07 Dose: 25 mcg/kg/min, 9.185 mls/hr Insulin Human Lispro (Humalog) 0 units SC ACHS MI PRN Reason: Protocol Last Admin: 10/17/17 11:32 Dose: Not Given Ipratropium [place] (Atrovent) 0.5 mg IH RQ4 [facility] Last Admin: 10/17/17 15:38 Dose: 0.5 mg Levalbuterol HCl (Xopenex) 0.63 mg INH RQ8 [facility] Last Admin: 10/17/17 15:38 Dose: 0.63 mg Levothyroxine Sodium (Synthroid) 50 mcg PO DAILY@0630 [facility] Last Admin: 10/17/17 08:20 Dose: 50 mcg Methylprednisolone (Solu-Medrol) 40 mg IVP Q6H [facility] Pantoprazole Sodium (Protonix Inj) 40 mg IVP DAILY [facility] Last Admin: 10/17/17 08:19 Dose: 40 mg - Labs Labs: 10/17/17 06:00 10/17/17 06:00 PT 20.6 Seconds (9.8-13.1) H 10/15/17 04:45 INR 1.8 (0.9-1.2) H 10/15/17 04:45 APTT 33.2 Seconds (25.6-37.1) 10/13/17 04:15 - Constitutional Appears: Chronically Ill - Head Exam Head Exam: NORMAL INSPECTION - Eye Exam Eye Exam: PERRL - ENT Exam Additional comments: intubated - Neck Exam Neck Exam: Normal Inspection - Respiratory Exam Respiratory Exam: Rhonchi - Cardiovascular Exam Cardiovascular Exam: REGULAR RHYTHM - GI/Abdominal Exam GI & Abdominal Exam: Soft, Normal Bowel Sounds - Extremities Exam Extremities Exam: Normal Inspection - Neurological Exam Additional comments: intubated , sedated - Psychiatric Exam Additional comments: intubated , sedated - Skin Skin Exam: Warm Assessment and Plan (1) Pneumonia Status: Acute (2) Influenza A Status: Acute (3) Respiratory failure Status: Acute (4) Sepsis Status: Acute (5) Anemia Status: Acute - Assessment and Plan (Free Text) Plan: continue ventilatory support , CXR extensive B/L PNA , no improvement, Patient on Diflucan , Merren , Zyvox , FOB Bronchial washings normal yuniel, discussed with Parts Sales Advisor add Solu Medrol , posibility of VATS-Bx considered. ICU Time: 38 min.
--- NOTE | 2017-10-17 16:22 | CP.PCM.PN ---
Subjective - Date & Time of Evaluation Date of Evaluation: 10/17/17 Time of Evaluation: 16:15 Objective - Vital Signs/Intake and Output Vital Signs (last 24 hours): Temp Pulse Resp BP Pulse Ox 97.5 F L 103 H 22 113/41 L 100 10/17/17 16:00 10/17/17 16:00 10/17/17 15:00 10/17/17 16:00 10/17/17 16:00 Intake and Output: 10/17/17 10/17/17 06:59 18:59 Intake Total 752 1100 Output Total 280 Balance 472 1100 - Medications Medications: Current Medications Acetaminophen (Tylenol 325mg Tab) 975 mg PO ONCE PRN PRN Reason: Fever >100.4 F Aspirin (Aspirin Chewable) 81 mg PO DAILY [facility] Last Admin: 10/17/17 08:20 Dose: 81 mg Atorvastatin Calcium (Lipitor) 20 mg PO DAILY [facility] Last Admin: 10/17/17 08:20 Dose: 20 mg Haloperidol Lactate (Haldol) 1 mg IVP Q6 PRN PRN Reason: Agitation Meropenem 500 mg/ Sodium (Chloride) 100 mls @ 100 mls/hr IVPB Q12 [place] PRN Reason: Protocol Last Admin: 10/17/17 08:22 Dose: 100 mls/hr Fluconazole (Diflucan Iv 200 Mg/100 Ml Ns) 100 mls @ 100 mls/hr IVPB DAILY [facility] Last Admin: 10/17/17 09:49 Dose: 100 mls/hr Linezolid (Zyvox 600mg/300ml D5w) 600 mg in 300 mls @ 300 mls/hr IVPB Q12 [place] PRN Reason: Protocol Last Admin: 10/17/17 12:44 Dose: 300 mls/hr Propofol (Diprivan) 1,000 mg in 100 mls @ 1.837 mls/hr IV .Q24H MI; 5 MCG/KG/ MIN PRN Reason: Protocol Stop: 10/18/17 11:02 Last Admin: 10/17/17 11:07 Dose: 25 mcg/kg/min, 9.185 mls/hr Insulin Human Lispro (Humalog) 0 units SC ACHS MI PRN Reason: Protocol Last Admin: 10/17/17 11:32 Dose: Not Given Ipratropium [place] (Atrovent) 0.5 mg IH RQ4 [facility] Last Admin: 10/17/17 15:38 Dose: 0.5 mg Levalbuterol HCl (Xopenex) 0.63 mg INH RQ8 [facility] Last Admin: 10/17/17 15:38 Dose: 0.63 mg Levothyroxine Sodium (Synthroid) 50 mcg PO DAILY@0630 [facility] Last Admin: 10/17/17 08:20 Dose: 50 mcg Methylprednisolone (Solu-Medrol) 40 mg IVP Q6H [facility] Pantoprazole Sodium (Protonix Inj) 40 mg IVP DAILY [facility] Last Admin: 10/17/17 08:19 Dose: 40 mg - Labs Labs: 10/17/17 06:00 10/17/17 06:00 PT 20.6 Seconds (9.8-13.1) H 10/15/17 04:45 INR 1.8 (0.9-1.2) H 10/15/17 04:45 APTT 33.2 Seconds (25.6-37.1) 10/13/17 04:15
[2017-10-17] MEDS ORDERED: DOPamine 400mg/250ml D5W 400 MG/250 ML BAG IV ONE (16:39)
[2017-10-17] MEDS: MethylPREDNISolone 40 mg Vial IVP SCH ×2 (16:41→22:35)
[2017-10-18 03:56] LABS: ABG ALLEN TEST YES; ARTERIAL BLOOD GAS HCO3 16.4 mmol/L (21-28); ARTERIAL BLOOD GAS HEMOGLOBIN 9.1 g/dL (11.7-17.4); ARTERIAL BLOOD GAS O2 CAPACITY 12.8 mL/dL (16-24); ARTERIAL BLOOD GAS O2 CONTENT 12.6 ML/dL (15-23); ARTERIAL BLOOD GAS O2 SAT 98.5 % (95-98); ARTERIAL BLOOD GAS PCO2 28 mm/Hg (35-45); ARTERIAL BLOOD GAS PH 7.31 (7.35-7.45); ARTERIAL BLOOD GAS PO2 96 mm/Hg (80-100)
[2017-10-18] MEDS: Ipratropium 0.02% Inhal Soln (0.5 mg/2.5 ml) UD IH SCH ×7 (04:00→23:40)
[2017-10-18] MEDS: MethylPREDNISolone 40 mg Vial IVP SCH ×4 (04:00→21:14)
[2017-10-18 05:31] LABS: CALCIUM 7.8 mg/dL (8.4-10.2)
[2017-10-18] MEDS ORDERED: Sod Polystyrene Sulf 15 gm/60 ml Susp PEG ONE (05:53)
[2017-10-18] MEDS ORDERED: Insulin Regular 100 units/ml IV STA (05:55)
[2017-10-18] MEDS: Levothyroxine 50 MCG TAB PO SCH (05:55)
[2017-10-18] MEDS ORDERED: Dextrose 50% SYRINGE Inj (50 ml) IVP ONE (05:55)
[2017-10-18] MEDS ORDERED: Levalbuterol 0.63 MG/3 ML Inhal Soln UD IH ONE (05:58)
[2017-10-18 06:02] LABS: BASO % 0.1 % (0.0-2.0); HEMOGLOBIN 8.6 g/dL (12.0-16.0); LYMPH # 0.3 K/uL (1.0-4.3); LYMPH % 1.6 % (20.0-40.0); MEAN CELL VOLUME 92.9 fl (81.0-99.0); MEAN CORPUSCULAR HEMOGLOBIN 30.7 pg (27.0-31.0); MEAN CORPUSCULAR HGB CONC 33.1 g/dL (33.0-37.0); MEAN PLATELET VOLUME 10.2 fl (7.2-11.7); MONO # 0.1 K/uL (0.0-0.8); MONO % 0.4 % (0.0-10.0); NEUT # 17.5 K/uL (1.8-7.0); NEUT % 97.9 % (50.0-75.0); NRBC % 0.1 % (0.0-0.0); PLATELET COUNT 171 K/uL (130-400); RBC 2.81 Mil/uL (3.80-5.20); RED CELL DISTRIBUTION WIDTH 14.5 % (11.5-14.5); WHITE BLOOD COUNT 17.9 K/uL (4.8-10.8)
[2017-10-18] MEDS ORDERED: Calcium Gluconate 4.65 mEq/10 ml Inj IV ONE (06:15)
[2017-10-18] MEDS: Levalbuterol 0.63 MG/3 ML Inhal Soln UD INH SCH ×3 (08:25→23:40)
[2017-10-18] MEDS: Meropenem 500 MG in Sodium Chloride 0.9% 100 ML IVPB SCH ×2 (08:35→21:15)
--- NOTE | 2017-10-18 08:47 | CP.PCM.PN ---
Subjective - Date & Time of Evaluation Date of Evaluation: 10/18/17 Time of Evaluation: 08:47 - Subjective Subjective: dictated Objective - Vital Signs/Intake and Output Vital Signs (last 24 hours): Temp Pulse Resp BP Pulse Ox 98 F 105 H 21 130/49 L 100 10/18/17 08:00 10/18/17 08:00 10/18/17 08:00 10/18/17 08:00 10/18/17 08:00 Intake and Output: 10/18/17 10/18/17 06:59 18:59 Intake Total 695 Output Total 200 Balance 495 - Medications Medications: Current Medications Acetaminophen (Tylenol 325mg Tab) 975 mg PO ONCE PRN PRN Reason: Fever >100.4 F Aspirin (Aspirin Chewable) 81 mg PO DAILY [facility] Last Admin: 10/18/17 08:35 Dose: 81 mg Atorvastatin Calcium (Lipitor) 20 mg PO DAILY [facility] Last Admin: 10/18/17 08:35 Dose: 20 mg Haloperidol Lactate (Haldol) 1 mg IVP Q6 PRN PRN Reason: Agitation Meropenem 500 mg/ Sodium (Chloride) 100 mls @ 100 mls/hr IVPB Q12 [place] PRN Reason: Protocol Last Admin: 10/18/17 08:35 Dose: 100 mls/hr Fluconazole (Diflucan Iv 200 Mg/100 Ml Ns) 100 mls @ 100 mls/hr IVPB DAILY [facility] Last Admin: 10/17/17 09:49 Dose: 100 mls/hr Linezolid (Zyvox 600mg/300ml D5w) 600 mg in 300 mls @ 300 mls/hr IVPB Q12 [place] PRN Reason: Protocol Last Admin: 10/17/17 22:38 Dose: 300 mls/hr Propofol (Diprivan) 1,000 mg in 100 mls @ 1.837 mls/hr IV .Q24H MI; 5 MCG/KG/ MIN PRN Reason: Protocol Stop: 10/18/17 11:02 Last Titration: 10/18/17 01:00 Dose: Infused Insulin Human Lispro (Humalog) 0 units SC ACHS MI PRN Reason: Protocol Last Admin: 10/17/17 22:00 Dose: Not Given Ipratropium [place] (Atrovent) 0.5 mg IH RQ4 [place] Last Admin: 10/18/17 08:25 Dose: 0.5 mg Levalbuterol HCl (Xopenex) 0.63 mg INH RQ8 [facility] Last Admin: 10/18/17 08:25 Dose: 0.63 mg Levothyroxine Sodium (Synthroid) 50 mcg PO DAILY@0630 [facility] Last Admin: 10/18/17 05:55 Dose: 50 mcg Methylprednisolone (Solu-Medrol) 40 mg IVP Q6H [facility] Last Admin: 10/18/17 04:00 Dose: 40 mg Pantoprazole Sodium (Protonix Inj) 40 mg IVP DAILY [facility] Last Admin: 10/18/17 08:30 Dose: 40 mg - Labs Labs: 10/18/17 04:20 10/18/17 04:20 PT 20.6 Seconds (9.8-13.1) H 10/15/17 04:45 INR 1.8 (0.9-1.2) H 10/15/17 04:45 APTT 33.2 Seconds (25.6-37.1) 10/13/17 04:15 Assessment and Plan (1) Influenza A Status: Acute (2) Pneumonia Status: Acute (3) Respiratory failure Status: Acute (4) Sepsis Status: Acute (5) NAHOMI (acute kidney injury) Status: Acute
--- NOTE | 2017-10-18 08:52 | PN ---
CRITICAL CARE PROGRESS NOTE DATE: 10/17/2017 The patient is in ICU, bed 423. TIME SPENT: 35 minutes. SUBJECTIVE: The patient is seen and evaluated at the bed side. Past medical, surgical and social history reviewed. An 87-year-old female with hypertension, hyperlipidemia, diabetes, admitted with persistent cough, chest congestion and fever, founded to be influenza positive with superimposed multilobar pneumonia, intubated on assisted mechanical ventilation, status post bronchoscopy with bronchioalveolar lavage. Remains persistently hypoxic. Currently on AC 14, tidal volume 400, FIO2 of 60%, PEEP of 5. Observed rate 31, exhaled tidal volume 319, minute ventilation 11.3 liters, saturating 100%, peak airway pressure 26 and end-tidal CO2 of 33. Sedated on Diprivan drip, on discontinuation the patient becomes agitated. PHYSICAL EXAMINATION VITAL SIGNS: Temperature 96.6, heart rate 102, blood pressure 120/46, mean arterial pressure of 70, respiratory rate 22 and saturation of 100%. Intake 1566 and output 1030. Positive balance 536. HEAD, EYES, EARS, NOSE AND THROAT: Pupils 3-4 mm midline. No gaze preference. Trachea central. Endotracheal tube in place. [id number] serosanguineous fluid noted. Oral mucosa are moist. CHEST: Bilateral breath sounds clear to auscultation anteriorly and laterally. HEART: Rhythm regular. S1 and S2 normal. ABDOMEN: Bowel sounds present. Soft. EXTREMITIES: Dependent edema. NEUROLOGIC: Sedated on Diprivan drip. CURRENT MEDICATIONS: Tylenol 975 mg p.o. p.r.n. for temperature more than 100.4, aspirin 81 mg daily, Lipitor 20 mg daily, fluconazole 200 mg IV daily, Haldol 1 mg IV q.6 p.r.n. for agitation, Humalog insulin based on Accu-Chek, Atrovent 0.4 mg q.4 hours, Protonix 40 IV daily, meropenem 500 mg q.12 ,Zyvox 600 mg IV q.12, Synthroid 50 mcg daily and Xopenex 0.63 mg q.8 hours. LABORATORY DATA: Chest x-ray; endotracheal tube in place, bilateral infiltrate, no pneumothorax, no pleural effusion. WBC 21.9, hemoglobin 8, hematocrit 25.6 and platelet count of 183. PT 20.6 and INR 1.8. ABG, pH of 7.36, pCO2 of 29, pO2 of 56 and saturation 94% on AC 14, 406 of 50%, PEEP of 5. SMA-7; sodium 141, potassium 4.5, chloride of 111 BUN 51, creatinine 2.6, random glucose 120, AST 67, ALT 41, alkaline phos 155, total protein 5.7 and albumin 1.9. Urinalysis; rbc 7 and wbc 7. Serology; influenza A and B negative. Microbiology; urine culture positive for yeast, sputum for mycobacteria preliminary report negative. Urine culture positive for Klebsiella. IMPRESSION: 1. Neuro. Septic hypoxic encephalopathy, on propofol for managing mechanical ventilation. 2. Pulmonary: Acute hypoxic respiratory failure, bilateral extensive infiltrate status post bronchoscopy. No microbiology input noted. 3. Cardiac: Borderline hypotension on dopamine. 4. Infectious disease: Influenza positive ,_ post influenza bronchitis/pneumonia, on multiple antibiotics including Zyvox, Zithromax and meropenem. 5. Endocrine: Recurrent hypoglycemia in spite of nasogastric feeding, suspect related to ongoing sepsis infection. Hold glyburide. Monitor Accu-Chek with regular insulin coverage. Beta-daisha on hold secondary to hypotension. 6. Hematology: Leukocytosis secondary to ongoing pneumonia. Anemia from chronic disease. No active gastrointestinal bleeding. Add Solu-Medrol 40 mg IV q.6. 7. Renal: Acute renal insufficiency with increasing BUN and creatinine; however, the urine output improved. Discussed with renal, no new recommendations. Continue with dopamine. Gera Jauregui MD MTDD
--- NOTE | 2017-10-18 09:03 | PN ---
DATE: 10/16/2017 CRITICAL CARE PROGRESS NOTE LOCATION: Patient in ICU, bed 423. SUBJECTIVE: The patient is seen and evaluated at the bedside. Past medical, surgical and social history noted. An 87-year-old female with history of hypertension, hyperlipidemia, and diabetes mellitus type 2, admitted with persistent cough, chest congestion, fever for two days, found to have influenza positive with superimposed multilobar pneumonia, complicated with respiratory failure, intubated and remains on mechanical ventilation on AC/PRVC, rate 14, and tidal volume 400, FiO2 of 50%, PEEP of 5, status post bronchoscopy with no significant findings except for scanty secretions. The patient's observed respiratory rate 20, tidal volume 590, minute ventilation 10.1 liters, saturating 96%, mean airway pressure 18, end-tidal CO2 of 21. PHYSICAL EXAMINATION: VITAL SIGNS: Temperature 97.7, heart rate 91, blood pressure 91/36, saturation 98%. Intake 3846, output 350, positive balance of 3496. Weight 135 pounds. HEAD, EYES, EARS, NOSE AND THROAT: Pupils reactive. Conjunctivae pink. Sclerae white. Pupils reactive, but sluggish. No gaze preference. Conjunctivae icteric. Oral mucosa moist. CHEST: Bilateral breath sounds. Clear to auscultation anteriorly and laterally. HEART: Rhythm irregular. ABDOMEN: Bowel sounds present. No palpable mass. No tenderness. EXTREMITIES: Upper extremities, positive for edema. Capillary refill less than 2 seconds. SKIN: Warm, dry, and pale. CURRENT MEDICATIONS: Include Tylenol 975 mg p.o. once p.r.n. for temperature more than 100.4, aspirin 81 mg daily, Lipitor 20 mg daily, azithromycin 500 mg IV daily, fluconazole 200 mg IV daily, Glucotrol 2.5 mg p.o. daily, Haldol 1 mg IV q. 6 p.r.n. for agitation, Accu-Chek with regular insulin coverage, Atrovent 0.5 mg q. 4, Xopenex 0.63 mg q. 8 hours, Synthroid 50 mcg daily, Zyvox 600 mg IV q. 12 hours, meropenem 500 mg IV q. 12, and Protonix 40 mg IV daily. LABORATORY DATA: WBC 23.4, hemoglobin 8.2, hematocrit 26, platelet count of 205. PT 20.6, INR 1.8, D dimer 4154. ABG: pH 7.35, pCO2 of 24, pO2 of 69, saturation 100.7 on AC 14, 50%, 400, PEEP of 5. SMA-7: Sodium 139, potassium 4.5, chloride 107, CO2 of 15, blood urea nitrogen 45, creatinine 2.1, glucose 81, and calcium 8. Urinalysis negative. Serology influenza B positive. Microbiology, urine culture positive for Klebsiella pneumoniae. Chest x-ray, both lung apices are partially obscured by overlying facial soft tissue and mandible, right greater than left; diffuse patchy bilateral infiltrates; bilateral effusion; endotracheal tube in place. IMPRESSION: 1. Neurologic:_ toxic metabolic encephalopathy. 2. Pulmonary: Bilateral pneumonia with hypoxic respiratory failure, on mechanical ventilation. 3. Cardiac; Atrial fibrillation, rate controlled. 4. Hematology: Leukocytosis with anemia secondary to sepsis/pneumonia. 5. Renal: Acute renal insufficiency secondary to ongoing sepsis. We will add dopamine to maintain systolic pressure above 100. 6. ID: Sepsis secondary to pneumonia and urinary tract infection, on meropenem and Zyvox. 7. Endocrine: Hypothyroidism, on Synthroid. Accu-Chek with regular insulin coverage. Continue DVT, GI prophylaxis. Prognosis remains guarded. Gera Jauregui MD MTDD
[2017-10-18 09:09] LABS: LYMPHOCYTE 4 % (20-50); MONOCYTE 1 % (0-10); NEUTROPHIL 95 % (42-75); TOTAL CELLS COUNTED 100
[2017-10-18 09:10] LABS: HYPOCHROMIC SLIGHT; PLATELET ESTIMATE NORMAL (NORMAL); TARGET CELLS SLIGHT
[2017-10-18 09:11] LABS: LARGE PLATELETS PRESENT; SCHISTOCYTES SLIGHT; TOXIC GRANULATION PRESENT
[2017-10-18] MEDS: Insulin Lispro (humaLOG) 100 Units/ml Inj SC SCH ×5 (09:33→22:15)
[2017-10-18 09:54] LABS: CREATININE, RANDOM URINE 54.8 mg/dL
[2017-10-18] MEDS: Fluconazole IV 200mg/100 ml NS 100 ML IVPB SCH (10:05)
[2017-10-18] MEDS ORDERED: DOPamine 400mg/250ml D5W 400 MG/250 ML BAG IV ONE ×2 (10:34→23:49)
[2017-10-18] MEDS: Linezolid 600 mg in D5W 300 ml 600 MG/300 ML BAG IVPB SCH ×2 (10:53→20:03)
--- NOTE | 2017-10-18 11:08 | RAD ---
PROCEDURE: CHEST RADIOGRAPH, 1 VIEW HISTORY: Intubated COMPARISON: In situ ETT, tip of which lies approximately 3.8 cm above emmanuel. In situ NGT, tip of which overlies right upper quadrant of the abdomen. None available. FINDINGS: LUNGS: Diffuse bilateral infiltrates which could be secondary to pneumonia however pulmonary edema/CHF not excluded. Probable small bilateral effusions PLEURA: As above. No evidence of pneumothorax CARDIOVASCULAR: Normal. OSSEOUS STRUCTURES: No significant abnormalities. VISUALIZED UPPER ABDOMEN: Normal. OTHER FINDINGS: None. IMPRESSION: ETT and NGT as above. Diffuse bilateral infiltrates which could be secondary to pneumonia however pulmonary edema/CHF not excluded. Probable small bilateral effusions
[2017-10-18 11:58] LABS: CALCIUM 7.9 mg/dL (8.4-10.2)
[2017-10-18] MEDS ORDERED: Sod Polystyrene Sulf 15 gm/60 ml Susp PO ONE (12:27)
--- NOTE | 2017-10-18 14:50 | CP.PCM.PN ---
Subjective - Date & Time of Evaluation Date of Evaluation: 10/18/17 Time of Evaluation: 14:00 - Subjective Subjective: F/U PNA/ Influenza A intubated , sedated Objective - Vital Signs/Intake and Output Vital Signs (last 24 hours): Temp Pulse Resp BP Pulse Ox 98.9 F 106 H 23 133/52 L 96 10/18/17 12:00 10/18/17 14:00 10/18/17 14:00 10/18/17 14:00 10/18/17 14:00 Intake and Output: 10/18/17 10/18/17 06:59 18:59 Intake Total 695 760 Output Total 200 Balance 495 760 - Medications Medications: Current Medications Acetaminophen (Tylenol 325mg Tab) 975 mg PO ONCE PRN PRN Reason: Fever >100.4 F Aspirin (Aspirin Chewable) 81 mg PO DAILY [facility] Last Admin: 10/18/17 08:35 Dose: 81 mg Atorvastatin Calcium (Lipitor) 20 mg PO DAILY [facility] Last Admin: 10/18/17 08:35 Dose: 20 mg Haloperidol Lactate (Haldol) 1 mg IVP Q6 PRN PRN Reason: Agitation Heparin Sodium (Porcine) (Heparin) 5,000 units SC Q12 MI PRN Reason: Protocol Last Admin: 10/18/17 14:49 Dose: 5,000 units Meropenem 500 mg/ Sodium (Chloride) 100 mls @ 100 mls/hr IVPB Q12 MI PRN Reason: Protocol Last Admin: 10/18/17 08:35 Dose: 100 mls/hr Fluconazole (Diflucan Iv 200 Mg/100 Ml Ns) 100 mls @ 100 mls/hr IVPB DAILY [facility] Last Admin: 10/18/17 10:05 Dose: 100 mls/hr Linezolid (Zyvox 600mg/300ml D5w) 600 mg in 300 mls @ 300 mls/hr IVPB Q12 MI PRN Reason: Protocol Last Admin: 10/18/17 10:53 Dose: 300 mls/hr Propofol (Diprivan) 1,000 mg in 100 mls @ 1.837 mls/hr IV .Q24H MI; 5 MCG/KG/ MIN PRN Reason: Protocol Stop: 10/19/17 12:30 Azithromycin 500 mg/ Sodium (Chloride) 250 mls @ 250 mls/hr IVPB DAILY MI PRN Reason: Protocol Insulin Human Lispro (Humalog) 0 units SC ACHS [facility] PRN Reason: Protocol Last Admin: 10/18/17 12:43 Dose: 1 units Ipratropium [place] (Atrovent) 0.5 mg IH RQ4 [facility] Last Admin: 10/18/17 11:47 Dose: 0.5 mg Ipratropium [place] (Atrovent) 0.5 mg IH RQ6 [facility] Levalbuterol HCl (Xopenex) 0.63 mg INH RQ8 [facility] Last Admin: 10/18/17 08:25 Dose: 0.63 mg Levothyroxine Sodium (Synthroid) 50 mcg PO DAILY@0630 [facility] Last Admin: 10/18/17 05:55 Dose: 50 mcg Methylprednisolone (Solu-Medrol) 40 mg IVP Q6H [facility] Last Admin: 10/18/17 10:03 Dose: 40 mg Pantoprazole Sodium (Protonix Inj) 40 mg IVP DAILY [facility] Last Admin: 10/18/17 08:30 Dose: 40 mg - Labs Labs: 10/18/17 04:20 10/18/17 11:36 PT 20.6 Seconds (9.8-13.1) H 10/15/17 04:45 INR 1.8 (0.9-1.2) H 10/15/17 04:45 APTT 33.2 Seconds (25.6-37.1) 10/13/17 04:15 - Constitutional Appears: Chronically Ill - Head Exam Head Exam: NORMAL INSPECTION - Eye Exam Eye Exam: PERRL - ENT Exam Additional comments: Intubated - Neck Exam Neck Exam: Normal Inspection - Respiratory Exam Respiratory Exam: Rhonchi (scattered) - Cardiovascular Exam Cardiovascular Exam: REGULAR RHYTHM - GI/Abdominal Exam GI & Abdominal Exam: Soft, Normal Bowel Sounds - Extremities Exam Extremities Exam: Normal Inspection - Neurological Exam Additional comments: Intubated,sedated - Psychiatric Exam Additional comments: Sedated - Skin Skin Exam: Warm Assessment and Plan (1) Pneumonia Status: Acute (2) Influenza A Status: Acute (3) Respiratory failure Status: Acute (4) Sepsis Status: Acute (5) Anemia Status: Acute - Assessment and Plan (Free Text) Plan: continue ventilatory support, Propofol , Dopamine , Merren , Zyvox , Diflucan , Zithromax , Diflucan Xopenex , Atrovent, prognosis discussed with Patient's family ICU Time: 39 min.
[2017-10-18] MEDS: Azithromycin 500 MG in Sodium Chloride 0.9% 250 ML IVPB SCH (14:59)
[2017-10-18] MEDS: Propofol 10 mg/ml 1,000 MG/100 ML VIAL IV SCH (16:47)
[2017-10-18] MEDS ORDERED: Chlorhexidine Gluconate 1 APPL/PKT TP ONE (18:11)
--- NOTE | 2017-10-18 22:57 | PN ---
CRITICAL CARE PROGRESS NOTE DATE: 10/18/2017 LOCATION: The patient is in ICU bed 423, time spent 35 minutes. SUBJECTIVE: The patient is seen and evaluated at the bedside. Past medical, surgical, and social history reviewed. An 87-year-old female with hypertension, hyperlipidemia, diabetes, admitted with persistent cough, chest congestion, and fever, found to be influenza positive with superimposed multilobar pneumonia. Respiratory failure, intubated on assisted mechanical ventilation, status post bronchoscopy with bronchioalveolar lavage. Bacteriology negative. Currently on AC of 14, tidal volume 400, FIO2 of 60%, and PEEP of 5, observed rate 17, observed tidal volume 320, PEEP 3, peak airway pressure 30, saturating 100%, end-tidal CO2 of 38, sedated on Diprivan, wakeful on weaning off Diprivan, and becomes agitated. OBJECTIVE: VITAL SIGNS: Temperature 98.9, heart rate 106, blood pressure 133/52, mean arterial pressure 79, and oxygen saturation 96%. Intake 2597 and output of 400, positive balance 2197. Weight of 135 pounds. HEAD, EYES, EARS, NOSE AND THROAT: Pupils reactive. Conjunctivae pale. Sclerae white. NECK: Supple. CHEST: Bilateral breath sounds clear to auscultation anteriorly and laterally. Fine crepitations at the bases. Scattered rhonchi. HEART: Rhythm regular. S1 and S2 normal. ABDOMEN: Bowel sounds present and soft. EXTREMITIES: Dependent edema. NEUROLOGIC: Sedated on Diprivan drip. CURRENT MEDICATIONS: Include Tylenol 975 mg p.r.n., aspirin 81 mg daily, Lipitor 20 mg daily, Zithromax 500 mg IV daily, Diflucan 200 mg IV daily, Haldol 1 mg IV q.6 hours p.r.n. for agitation, heparin 5000 units subcutaneously q.12 hours, Humalog Accu-Chek with regular insulin coverage, Atrovent 0.5 mg inhalation every 6 hours, Xopenex 0.63 mg q.8 hours, Synthroid 50 mcg daily, Zyvox 600 mg q.12 hours, meropenem 500 mg IV q.12 hours, Solu-Medrol 40 mg IV q.6 hours, Protonix 40 IV daily, and propofol to facilitate mechanical ventilation. LABORATORY DATA: WBC 17.9, hemoglobin 8.6, hematocrit 26.1, and platelet count 171. PT 20.6 and INR 1.8. ABG, pH 7.31, pCO2 28, pO2 96, on AC 14, 60%, 400, and PEEP of 5. SMA-7; sodium 137, potassium 5.5, chloride 108, CO2 of 15, blood urea nitrogen 62, and creatinine 3.1. Calcium 7.9 and phosphorus 7.4. Influenza B positive. Microbiology, urine culture positive for Klebsiella pneumoniae and yeast species. Chest x-ray, diffuse infiltrates secondary to pneumonia, small bilateral effusion, no evidence of a pneumothorax. Endotracheal tube and NG in place. IMPRESSION AND PLAN: 1. Neurologic: Septic metabolic encephalopathy, hypoxic respiratory failure, intubated and sedated on Diprivan drip. 2. Pulmonary: Hypoxic respiratory failure. Bilateral pneumonia with small bilateral pleural effusion. Influenza A positive treatment completed on broad-spectrum antibiotics for pneumonia, status post bronchoscopy, not yielding to any organism. Seen by Pulmonary, consult considering for open lung biopsy. 3. Cardiac: Tachycardia, resolved. Telemetry sinus rhythm, will schedule for an echo to assess the left ventricular malfunction. 4. Endocrine: No further hypoglycemic episodes noted today, glyburide on hold. Continue Accu-Chek with regular insulin coverage. Monitor blood sugar as the patient is on steroid, maintain sugar less than 180 mg. 5. Hematology. Leukocytosis secondary to ongoing pneumonia and/or steroid. Anemia from chronic disease. No active gastrointestinal bleeding noted. 6. Renal: Acute renal insufficiency with increasing BUN and creatinine and hyperkalemia, seen by Renal consult, given Kayexalate, and closely monitor. 7. Constipation, would suggest MiraLax powder. Gear Jauregui MD
--- NOTE | 2017-10-18 23:32 | CP.PCM.PN ---
Subjective - Date & Time of Evaluation Date of Evaluation: 10/18/17 Time of Evaluation: 17:55 Objective - Vital Signs/Intake and Output Vital Signs (last 24 hours): Temp Pulse Resp BP Pulse Ox 97.2 F L 108 H 22 159/63 H 100 10/18/17 20:00 10/18/17 22:00 10/18/17 22:00 10/18/17 22:00 10/18/17 22:00 Intake and Output: 10/18/17 10/19/17 18:59 06:59 Intake Total 1221 535 Output Total 620 25 Balance 601 510 - Medications Medications: Current Medications Acetaminophen (Tylenol 325mg Tab) 975 mg PO ONCE PRN PRN Reason: Fever >100.4 F Aspirin (Aspirin Chewable) 81 mg PO DAILY [facility] Last Admin: 10/18/17 08:35 Dose: 81 mg Atorvastatin Calcium (Lipitor) 20 mg PO DAILY [facility] Last Admin: 10/18/17 08:35 Dose: 20 mg Haloperidol Lactate (Haldol) 1 mg IVP Q6 PRN PRN Reason: Agitation Heparin Sodium (Porcine) (Heparin) 5,000 units SC Q12 MI PRN Reason: Protocol Last Admin: 10/18/17 21:18 Dose: 5,000 units Meropenem 500 mg/ Sodium (Chloride) 100 mls @ 100 mls/hr IVPB Q12 [place] PRN Reason: Protocol Last Admin: 10/18/17 21:15 Dose: 100 mls/hr Fluconazole (Diflucan Iv 200 Mg/100 Ml Ns) 100 mls @ 100 mls/hr IVPB DAILY [facility] Last Admin: 10/18/17 10:05 Dose: 100 mls/hr Linezolid (Zyvox 600mg/300ml D5w) 600 mg in 300 mls @ 300 mls/hr IVPB Q12 [place] PRN Reason: Protocol Last Admin: 10/18/17 20:03 Dose: 300 mls/hr Propofol (Diprivan) 1,000 mg in 100 mls @ 1.837 mls/hr IV .Q24H MI; 5 MCG/KG/ MIN PRN Reason: Protocol Stop: 10/19/17 12:30 Last Titration: 10/18/17 20:00 Dose: 10 mcg/kg/min, 3.674 mls/hr Azithromycin 500 mg/ Sodium (Chloride) 250 mls @ 250 mls/hr IVPB DAILY [facility] PRN Reason: Protocol Last Admin: 10/18/17 14:59 Dose: 250 mls/hr Insulin Human Lispro (Humalog) 0 units SC ACHS MI PRN Reason: Protocol Last Admin: 10/18/17 22:15 Dose: Not Given Ipratropium [place] (Atrovent) 0.5 mg IH RQ6 [facility] Last Admin: 10/18/17 19:14 Dose: 0.5 mg Levalbuterol HCl (Xopenex) 0.63 mg INH RQ8 [facility] Last Admin: 10/18/17 16:00 Dose: 0.63 mg Levothyroxine Sodium (Synthroid) 50 mcg PO DAILY@0630 [facility] Last Admin: 10/18/17 05:55 Dose: 50 mcg Methylprednisolone (Solu-Medrol) 40 mg IVP Q6H [facility] Last Admin: 10/18/17 21:14 Dose: 40 mg Metoclopramide HCl (Reglan) 10 mg IVP Q8 [place] Pantoprazole Sodium (Protonix Inj) 40 mg IVP DAILY [facility] Last Admin: 10/18/17 08:30 Dose: 40 mg - Labs Labs: 10/18/17 04:20 10/18/17 11:36 PT 20.6 Seconds (9.8-13.1) H 10/15/17 04:45 INR 1.8 (0.9-1.2) H 10/15/17 04:45 APTT 33.2 Seconds (25.6-37.1) 10/13/17 04:15
[2017-10-18] MEDS ORDERED: Propofol 10 mg/ml 1,000 MG/100 ML VIAL IV SCH (23:45)
[2017-10-19] MEDS: MethylPREDNISolone 40 mg Vial IVP SCH ×4 (03:11→21:25)
[2017-10-19 04:07] LABS: ABG ALLEN TEST YES; ARTERIAL BLOOD GAS HCO3 15.7 mmol/L (21-28); ARTERIAL BLOOD GAS O2 SAT 95.5 % (95-98); ARTERIAL BLOOD GAS PCO2 34 mm/Hg (35-45); ARTERIAL BLOOD GAS PH 7.24 (7.35-7.45); ARTERIAL BLOOD GAS PO2 69 mm/Hg (80-100); ARTERIAL BLOOD GAS TCO2 15.6 mmol/L (22-28)
[2017-10-19] MEDS: Levothyroxine 50 MCG TAB PO SCH (05:35)
[2017-10-19 05:46] LABS: ALB/GLOB RATIO 0.6 (1.0-2.1); ALBUMIN 2.3 g/dL (3.5-5.0); CALCIUM 7.5 mg/dL (8.4-10.2)
[2017-10-19 06:00] LABS: HEMOGLOBIN 8.7 g/dL (12.0-16.0); MEAN CORPUSCULAR HEMOGLOBIN 31.4 pg (27.0-31.0); RBC 2.76 Mil/uL (3.80-5.20); RED CELL DISTRIBUTION WIDTH 14.5 % (11.5-14.5); WHITE BLOOD COUNT 17.7 K/uL (4.8-10.8)
[2017-10-19] MEDS: Insulin Lispro (humaLOG) 100 Units/ml Inj SC SCH ×4 (06:49→21:30)
--- NOTE | 2017-10-19 08:04 | CP.CCUPN ---
<Juan Mascorroth - Last Filed: 10/19/17 15:40> CCU Subjective - Physician Review Subjective (Free Text): 10/19/17 87 y/o F /with PMHX of HTN, HYpercholesterolemia, DM admitted with persistent cough, chest congestion, fevers for 2 days found to be Influenza positive with superimposed multilobar pneumonia. Patient with worsening renal function, and hypotension now in dopamine Patient remains intubated and sedated with propofol. Patient is intubated and sedated. ABG done today on FiO2 70 %, showed PaO2 69, O2 sat 95.5 %. ON PRVC AC set 14 TV 400 100 % on FiO2 70 % PEEP 5. As per nurse' s notes no events overnight. As per nurse total output in prior shift was 100 ml. VS on monitor: BP: 146/57, HR: 95/min, RR: 24, Oxygen sat: 100 % on FiO2 70. Patient is on dopamine 2 mcg/kg/min. I & O reviewed Critical Care Time Spent (in minutes): 45 CCU Objective - Vital Signs / Intake & Output Vital Signs (Last 4 hours): Vital Signs Temp Pulse Resp BP Pulse Ox 10/19/17 07:00 97 H 25 H 146/57 L 100 10/19/17 06:00 93 H 137/48 L 100 10/19/17 05:00 102 H 25 H 152/41 H 98 10/19/17 04:00 97.9 F 100 H 26 H 101/46 L 100 Intake and Output (Last 8hrs): Intake & Output 10/18/17 10/19/17 10/19/17 22:59 06:59 14:59 Intake Total 976 228 Output Total 665 55 Balance 311 173 Intake: IV 40 28 Intake, Piggyback 536 Tube Feeding 400 100 Free Water Flush 100 Output: Gastric Amount 500 Stomach 500 Urine 165 55 Urethral (Jamil) 165 55 Other: # Bowel Movements 1 1 - Physical Exam Head: Positive for: Atraumatic, Normocephalic. Negative for: Tenderness, Contusion Pupils: Positive for: PERRL. Negative for: Sluggish, Non-Reactive Extroacular Muscles: Negative for: Gaze Palsy, Entrapment Conjunctiva: Positive for: Normal. Negative for: Injected, Icteric Mouth: Positive for: Moist Mucous Membranes Pharnyx: Positive for: Normal Nose (External): Positive for: Atraumatic Nose (Internal): Positive for: Normal Inspection Neck: Positive for: Trachea Midline. Negative for: Meningeal Signs, MIDLINE TENDERNESS, Paraspinal Tenderness, JVD, Lymphadenopathy, Bruit, Other Respiratory/Chest: Positive for: Clear to Auscultation, Good Air Exchange. Negative for: Respiratory Distress, Accessory Muscle Use, Wheezes, Rales, Rhonchi, Tender to Palpation Cardiovascular: Positive for: Regular Rate and Rhythm, Normal S1, S2, Peripheal Pulses Present. Negative for: Murmurs, Irregular Rhythm, Tachycardic Abdomen: Positive for: Normal Bowel Sounds. Negative for: Tenderness, Distention, Peritoneal Signs Upper Extremity: Positive for: Normal Inspection, Edema (no pitting edema in upper/lower extremities), NORMAL PULSES, Capillary Refill < 2s. Negative for: Cyanosis Lower Extremity: Positive for: Edema (in lower extremities), NORMAL PULSES, Capillary Refill < 2 s Neurological: Positive for: GCS=15 Skin: Positive for: Warm, Dry, Pale Psychiatric: Positive for: Other (Intubated and sedated). Negative for: Alert, Oriented x 3 - Medications Active Medications: Active Medications Generic Name Dose Route Start Last Admin Trade Name Freq PRN Reason Stop Dose Admin Acetaminophen 975 mg 10/11/17 20:15 Tylenol 325mg Tab PO ONCE PRN Fever >100.4 F Aspirin 81 mg 10/14/17 13:15 10/18/17 08:35 Aspirin Chewable PO 81 mg DAILY MI Administration Atorvastatin Calcium 20 mg 10/12/17 09:00 10/18/17 08:35 Lipitor PO 20 mg DAILY MI Administration Haloperidol Lactate 1 mg 10/11/17 20:15 Haldol IVP Q6 PRN Agitation Heparin Sodium (Porcine) 5,000 units 10/18/17 12:45 10/18/17 21:18 Heparin SC 5,000 units Q12 MI Administration Protocol Meropenem 500 mg/ Sodium 100 mls @ 100 mls/hr 10/15/17 10:30 10/18/17 21:15 Chloride IVPB 100 mls/hr Q12 MI Administration Protocol Fluconazole 100 mls @ 100 mls/hr 10/15/17 10:30 10/18/17 10:05 Diflucan Iv 200 Mg/100 Ml Ns IVPB 100 mls/hr DAILY MI Administration Linezolid 600 mg in 300 mls @ 300 mls/hr 10/15/17 21:00 10/18/17 20:03 Zyvox 600mg/300ml D5w IVPB 300 mls/hr Q12 MI Administration Protocol Propofol 1,000 mg in 100 mls @ 1.837 mls/hr 10/18/17 12:30 10/19/17 03:06 Diprivan IV 10/19/17 12:30 10 mcg/kg/min .Q24H MI 3.674 mls/hr Protocol Titration 5 MCG/KG/MIN Azithromycin 500 mg/ Sodium 250 mls @ 250 mls/hr 10/18/17 12:45 10/18/17 14: 59 Chloride IVPB 250 mls/hr DAILY MI Administration Protocol Propofol 1,000 mg in 100 mls @ 3.674 mls/hr 10/18/17 23:45 Diprivan IV 10/19/17 23:50 .Q24H MI Protocol 10 MCG/KG/MIN Insulin Human Lispro 0 units 10/11/17 22:00 10/19/17 06:49 Humalog SC 2 units ACHS MI Administration Protocol Ipratropium [place] 0.5 mg 10/18/17 14:00 10/18/17 23:40 Atrovent IH 0.5 mg RQ6 MI Administration Levalbuterol HCl 0.63 mg 10/12/17 00:00 10/18/17 23:40 Xopenex INH 0.63 mg RQ8 MI Administration Levothyroxine Sodium 50 mcg 10/12/17 06:30 10/19/17 05:35 Synthroid PO 50 mcg DAILY@0630 MI Administration Methylprednisolone 40 mg 10/17/17 15:45 10/19/17 03:11 Solu-Medrol IVP 40 mg Q6H MI Administration Metoclopramide HCl 10 mg 10/19/17 01:00 10/19/17 01:00 Reglan IVP 10 mg Q8 MI Administration Pantoprazole Sodium 40 mg 10/13/17 09:00 10/18/17 08:30 Protonix Inj IVP 40 mg DAILY MI Administration - Patient Studies Lab Studies: Microbiology Studies 10/15/17 10:20 Blood Culture - Preliminary Blood NO GROWTH AFTER 3 DAYS Lab Studies 10/19/17 10/19/17 10/19/17 Range/Units 04:32 04:30 04:30 WBC 17.7 H (4.8-10.8) K/uL RBC 2.76 L (3.80-5.20) Mil/uL Hgb 8.7 L (12.0-16.0) g/dL Hct 26.2 L (34.0-47.0) % MCV 95.0 D (81.0-99.0) fl MCH 31.4 H (27.0-31.0) pg MCHC 33.0 (33.0-37.0) g/dL RDW 14.5 (11.5-14.5) % Plt Count 144 (130-400) K/uL Neutrophils % (Manual) (42-75) % Lymphocytes % (Manual) (20-50) % Monocytes % (Manual) (0-10) % Toxic Granulation Platelet Estimate (NORMAL) Large Platelets Hypochromasia (manual) Target Cells Schistocytes pCO2 (35-45) mm/Hg pO2 (80-100) mm/Hg HCO3 (21-28) mmol/L ABG pH (7.35-7.45) ABG Total CO2 (22-28) mmol/L ABG O2 Saturation (95-98) % ABG Base Excess (-2.0-3.0) mmol/L Michael Test ABG Potassium (3.6-5.2) mmol/L A-a O2 Difference mm/Hg Glucose (65-105) mg/dL Lactate (0.7-2.1) mmol/L Vent Mode Mechanical Rate FiO2 % Tidal Volume PEEP Sodium 136 (132-148) mmol/l Potassium 5.6 H (3.6-5.0) MMOL/L Chloride 108 H (98-107) mmol/L Carbon Dioxide 14 L (22-30) mmol/L Anion Gap 20 (10-20) BUN 75 H (7-17) mg/dl Creatinine 3.3 H (0.7-1.2) mg/dl Est GFR ( Amer) 16 Est GFR (Non-Af Amer) 13 POC Glucose (mg/dL) 219 H (65-110) mg/dL Random Glucose 247 H (65-105) mg/dL Calcium 7.5 L (8.4-10.2) mg/dL Phosphorus 8.4 H (2.5-4.5) mg/dl Magnesium 2.0 (1.6-2.3) MG/DL Total Bilirubin 0.6 (0.2-1.3) mg/dl AST 108 H D (14-36) U/L ALT 60 H D (9-52) U/L Alkaline Phosphatase 202 H D (38-126) U/L Total Protein 6.2 L (6.3-8.2) G/DL Albumin 2.3 L D (3.5-5.0) g/dL Globulin 3.9 (2.2-3.9) gm/dL Albumin/Globulin Ratio 0.6 L (1.0-2.1) Arterial Blood Potassium (3.6-5.2) mmol/L Urine Osmolality (300-1000) mosm/kg Ur Random Creatinine mg/dL Ur Random Sodium mmol/L 10/19/17 10/18/17 10/18/17 Range/Units 04:00 21:45 16:02 WBC (4.8-10.8) K/uL RBC (3.80-5.20) Mil/uL Hgb (12.0-16.0) g/dL Hct (34.0-47.0) % MCV (81.0-99.0) fl MCH (27.0-31.0) pg MCHC (33.0-37.0) g/dL RDW (11.5-14.5) % Plt Count (130-400) K/uL Neutrophils % (Manual) (42-75) % Lymphocytes % (Manual) (20-50) % Monocytes % (Manual) (0-10) % Toxic Granulation Platelet Estimate (NORMAL) Large Platelets Hypochromasia (manual) Target Cells Schistocytes pCO2 34 L (35-45) mm/Hg pO2 69 L (80-100) mm/Hg HCO3 15.7 L (21-28) mmol/L ABG pH 7.24 L (7.35-7.45) ABG Total CO2 15.6 L (22-28) mmol/L ABG O2 Saturation 95.5 (95-98) % ABG Base Excess -11.8 L (-2.0-3.0) mmol/L Michael Test Yes ABG Potassium 5.8 H (3.6-5.2) mmol/L A-a O2 Difference 316.0 mm/Hg Glucose 266 H (65-105) mg/dL Lactate 3.1 H (0.7-2.1) mmol/L Vent Mode A/c Mechanical Rate 14 FiO2 60.0 % Tidal Volume 400 PEEP 5 Sodium 133.0 (132-148) mmol/l Potassium (3.6-5.0) MMOL/L Chloride 105.0 (98-107) mmol/L Carbon Dioxide (22-30) mmol/L Anion Gap (10-20) BUN (7-17) mg/dl Creatinine (0.7-1.2) mg/dl Est GFR ( Amer) Est GFR (Non-Af Amer) POC Glucose (mg/dL) 241 H 203 H (65-110) mg/dL Random Glucose (65-105) mg/dL Calcium (8.4-10.2) mg/dL Phosphorus (2.5-4.5) mg/dl Magnesium (1.6-2.3) MG/DL Total Bilirubin (0.2-1.3) mg/dl AST (14-36) U/L ALT (9-52) U/L Alkaline Phosphatase (38-126) U/L Total Protein (6.3-8.2) G/DL Albumin (3.5-5.0) g/dL Globulin (2.2-3.9) gm/dL Albumin/Globulin Ratio (1.0-2.1) Arterial Blood Potassium 5.8 H (3.6-5.2) mmol/L Urine Osmolality (300-1000) mosm/kg Ur Random Creatinine mg/dL Ur Random Sodium mmol/L 10/18/17 10/18/17 10/18/17 Range/Units 11:36 11:14 09:14 WBC (4.8-10.8) K/uL RBC (3.80-5.20) Mil/uL Hgb (12.0-16.0) g/dL Hct (34.0-47.0) % MCV (81.0-99.0) fl MCH (27.0-31.0) pg MCHC (33.0-37.0) g/dL RDW (11.5-14.5) % Plt Count (130-400) K/uL Neutrophils % (Manual) (42-75) % Lymphocytes % (Manual) (20-50) % Monocytes % (Manual) (0-10) % Toxic Granulation Platelet Estimate (NORMAL) Large Platelets Hypochromasia (manual) Target Cells Schistocytes pCO2 (35-45) mm/Hg pO2 (80-100) mm/Hg HCO3 (21-28) mmol/L ABG pH (7.35-7.45) ABG Total CO2 (22-28) mmol/L ABG O2 Saturation (95-98) % ABG Base Excess (-2.0-3.0) mmol/L Michael Test ABG Potassium (3.6-5.2) mmol/L A-a O2 Difference mm/Hg Glucose (65-105) mg/dL Lactate (0.7-2.1) mmol/L Vent Mode Mechanical Rate FiO2 % Tidal Volume PEEP Sodium 137 (132-148) mmol/l Potassium 5.5 H (3.6-5.0) MMOL/L Chloride 108 H (98-107) mmol/L Carbon Dioxide 15 L (22-30) mmol/L Anion Gap 20 (10-20) BUN 62 H (7-17) mg/dl Creatinine 3.1 H (0.7-1.2) mg/dl Est GFR ( Amer) 17 Est GFR (Non-Af Amer) 14 POC Glucose (mg/dL) 159 H (65-110) mg/dL Random Glucose 170 H (65-105) mg/dL Calcium 7.9 L (8.4-10.2) mg/dL Phosphorus 7.4 H (2.5-4.5) mg/dl Magnesium (1.6-2.3) MG/DL Total Bilirubin (0.2-1.3) mg/dl AST (14-36) U/L ALT (9-52) U/L Alkaline Phosphatase (38-126) U/L Total Protein (6.3-8.2) G/DL Albumin (3.5-5.0) g/dL Globulin (2.2-3.9) gm/dL Albumin/Globulin Ratio (1.0-2.1) Arterial Blood Potassium (3.6-5.2) mmol/L Urine Osmolality (300-1000) mosm/kg Ur Random Creatinine mg/dL Ur Random Sodium mmol/L 10/18/17 10/18/17 10/18/17 Range/Units 08:28 08:27 04:20 WBC (4.8-10.8) K/uL RBC (3.80-5.20) Mil/uL Hgb (12.0-16.0) g/dL Hct (34.0-47.0) % MCV (81.0-99.0) fl MCH (27.0-31.0) pg MCHC (33.0-37.0) g/dL RDW (11.5-14.5) % Plt Count (130-400) K/uL Neutrophils % (Manual) 95 H (42-75) % Lymphocytes % (Manual) 4 L (20-50) % Monocytes % (Manual) 1 (0-10) % Toxic Granulation Present Platelet Estimate Normal (NORMAL) Large Platelets Present Hypochromasia (manual) Slight Target Cells Slight Schistocytes Slight pCO2 (35-45) mm/Hg pO2 (80-100) mm/Hg HCO3 (21-28) mmol/L ABG pH (7.35-7.45) ABG Total CO2 (22-28) mmol/L ABG O2 Saturation (95-98) % ABG Base Excess (-2.0-3.0) mmol/L Michael Test ABG Potassium (3.6-5.2) mmol/L A-a O2 Difference mm/Hg Glucose (65-105) mg/dL Lactate (0.7-2.1) mmol/L Vent Mode Mechanical Rate FiO2 % Tidal Volume PEEP Sodium (132-148) mmol/l Potassium (3.6-5.0) MMOL/L Chloride (98-107) mmol/L Carbon Dioxide (22-30) mmol/L Anion Gap (10-20) BUN (7-17) mg/dl Creatinine (0.7-1.2) mg/dl Est GFR ( Amer) Est GFR (Non-Af Amer) POC Glucose (mg/dL) 195 H (65-110) mg/dL Random Glucose (65-105) mg/dL Calcium (8.4-10.2) mg/dL Phosphorus (2.5-4.5) mg/dl Magnesium (1.6-2.3) MG/DL Total Bilirubin (0.2-1.3) mg/dl AST (14-36) U/L ALT (9-52) U/L Alkaline Phosphatase (38-126) U/L Total Protein (6.3-8.2) G/DL Albumin (3.5-5.0) g/dL Globulin (2.2-3.9) gm/dL Albumin/Globulin Ratio (1.0-2.1) Arterial Blood Potassium (3.6-5.2) mmol/L Urine Osmolality 296 L (300-1000) mosm/kg Ur Random Creatinine 54.8 mg/dL Ur Random Sodium 8 mmol/L Laboratory Results - last 24 hr 10/18/17 10/18/17 10/18/17 04:20 08:27 08:28 WBC RBC Hgb Hct MCV MCH MCHC RDW Plt Count Neutrophils % (Manual) 95 H Lymphocytes % (Manual) 4 L Monocytes % (Manual) 1 Toxic Granulation Present Platelet Estimate Normal Large Platelets Present Hypochromasia (manual) Slight Target Cells Slight Schistocytes Slight pCO2 pO2 HCO3 ABG pH ABG Total CO2 ABG O2 Saturation ABG Base Excess Michael Test ABG Potassium A-a O2 Difference Glucose Lactate Vent Mode Mechanical Rate FiO2 Tidal Volume PEEP Sodium Potassium Chloride Carbon Dioxide Anion Gap BUN Creatinine Est GFR ( Amer) Est GFR (Non-Af Amer) POC Glucose (mg/dL) 195 H Random Glucose Calcium Phosphorus Magnesium Total Bilirubin AST ALT Alkaline Phosphatase Total Protein Albumin Globulin Albumin/Globulin Ratio Arterial Blood Potassium Urine Osmolality 296 L Ur Random Creatinine 54.8 Ur Random Sodium 8 10/18/17 10/18/17 10/18/17 09:14 11:14 11:36 WBC RBC Hgb Hct MCV MCH MCHC RDW Plt Count Neutrophils % (Manual) Lymphocytes % (Manual) Monocytes % (Manual) Toxic Granulation Platelet Estimate Large Platelets Hypochromasia (manual) Target Cells Schistocytes pCO2 pO2 HCO3 ABG pH ABG Total CO2 ABG O2 Saturation ABG Base Excess Michael Test ABG Potassium A-a O2 Difference Glucose Lactate Vent Mode Mechanical Rate FiO2 Tidal Volume PEEP Sodium 137 Potassium 5.5 H Chloride 108 H Carbon Dioxide 15 L Anion Gap 20 BUN 62 H Creatinine 3.1 H Est GFR ( Amer) 17 Est GFR (Non-Af Amer) 14 POC Glucose (mg/dL) 159 H Random Glucose 170 H Calcium 7.9 L Phosphorus 7.4 H Magnesium Total Bilirubin AST ALT Alkaline Phosphatase Total Protein Albumin Globulin Albumin/Globulin Ratio Arterial Blood Potassium Urine Osmolality Ur Random Creatinine Ur Random Sodium 10/18/17 10/18/17 10/19/17 16:02 21:45 04:00 WBC RBC Hgb Hct MCV MCH MCHC RDW Plt Count Neutrophils % (Manual) Lymphocytes % (Manual) Monocytes % (Manual) Toxic Granulation Platelet Estimate Large Platelets Hypochromasia (manual) Target Cells Schistocytes pCO2 34 L pO2 69 L HCO3 15.7 L ABG pH 7.24 L ABG Total CO2 15.6 L ABG O2 Saturation 95.5 ABG Base Excess -11.8 L Michael Test Yes ABG Potassium 5.8 H A-a O2 Difference 316.0 Glucose 266 H Lactate 3.1 H Vent Mode A/c Mechanical Rate 14 FiO2 60.0 Tidal Volume 400 PEEP 5 Sodium 133.0 Potassium Chloride 105.0 Carbon Dioxide Anion Gap BUN Creatinine Est GFR ( Amer) Est GFR (Non-Af Amer) POC Glucose (mg/dL) 203 H 241 H Random Glucose Calcium Phosphorus Magnesium Total Bilirubin AST ALT Alkaline Phosphatase Total Protein Albumin Globulin Albumin/Globulin Ratio Arterial Blood Potassium 5.8 H Urine Osmolality Ur Random Creatinine Ur Random Sodium 10/19/17 10/19/17 10/19/17 04:30 04:30 04:32 WBC 17.7 H RBC 2.76 L Hgb 8.7 L Hct 26.2 L MCV 95.0 D MCH 31.4 H MCHC 33.0 RDW 14.5 Plt Count 144 Neutrophils % (Manual) Lymphocytes % (Manual) Monocytes % (Manual) Toxic Granulation Platelet Estimate Large Platelets Hypochromasia (manual) Target Cells Schistocytes pCO2 pO2 HCO3 ABG pH ABG Total CO2 ABG O2 Saturation ABG Base Excess Michael Test ABG Potassium A-a O2 Difference Glucose Lactate Vent Mode Mechanical Rate FiO2 Tidal Volume PEEP Sodium 136 Potassium 5.6 H Chloride 108 H Carbon Dioxide 14 L Anion Gap 20 BUN 75 H Creatinine 3.3 H Est GFR ( Amer) 16 Est GFR (Non-Af Amer) 13 POC Glucose (mg/dL) 219 H Random Glucose 247 H Calcium 7.5 L Phosphorus 8.4 H Magnesium 2.0 Total Bilirubin 0.6 AST 108 H D ALT 60 H D Alkaline Phosphatase 202 H D Total Protein 6.2 L Albumin 2.3 L D Globulin 3.9 Albumin/Globulin Ratio 0.6 L Arterial Blood Potassium Urine Osmolality Ur Random Creatinine Ur Random Sodium Fingerstick Blood Sugar Results: 219 Review of Systems - Review of Systems Review of Systems: unable to assess because patient is intubated and sedated Critical Care Progress Note - Nutrition Nutrition: Nutrition Category Date Time Status NPO Diet [DIET] Diets 10/12/17 Breakfast Active Assessment/Plan - Assessment and Plan (Free Text) Plan: Sepsis -SIRS plus Pneumonia -tachypnea, WBC : 17/trending down, afebrile -CBC: WBC: 17, lactate: 3.1 today trending down -repeated on 10/15/17 Blood CX showed no growth after 3 days -repeated on 10/15/17 urine culture showed yeast species -Linezolid 600 mg IVPB Q12 day # 8 ( started on oct 11 PM) -Azithromycin 500 mg IVPB daily day # 8( started on oct 12) -Meropenen 500 mg Q12 day #4 ( started on 10/15/17) -Diflucan 200 mg IV daily #4 -antibiotics and antimycotic as per ID -ID on consult, f/u recs -Pulmonology on consult, f/u recs. Acute hypoxemic respiratory failure secondary Pneumonia in superimposed Influenza infection -s/p Bronchoscopy at bedside by Pulmonology -s/p post-endotracheal tube placement on 10/12/17 and Mechanical ventilation -PRVC AC 14 TV 400 FiO2 70 % PEEP 5 -Afebrile, slightly tachycardic -c/w antibiotics and antimycotic as per ID Linezolid 600 mg IVPB Q12 day # 8 ( started on oct 11 PM) -Azithromycin 500 mg IVPB daily day # 8( started on oct 12) -Meropenen 500 mg Q12 day #4 ( started on 10/15/17) -Diflucan 200 mg IV daily #4 -awaiting for cultures and cytology from bronchoscopy specimen -c/w chest PT and suctioning -c/w nebulizer treatment -f/u CBC, ABG, CXR in AM -CXR on 10/18/17 reported as pulmonary infiltrates could be 2/2 pneumonia, however pulmonary edema/CHF not excluded -ID on consult, f/u recs -Pulmonology on consult, f/u recs. Acute Renal Failure -worsening, oliguric/100 ml/12 hours -likely 2/2 sepsis and hypotension -BUN/Cr trending up -today BUN/Cr 75/3.3 -potassium trending up, 5.6 -most likely will need dialysis -will give Furosemide 80 mg IV once to promote diuresis -echo done on 10/12/17 reported as normal LV function, normal EF: 60-65 % -f/u BUN/Cr -Nephrology on consult, recs are appreciated Hyperkalemia -likely 2/2 NAHOMI -most likely will need dialysis -will give Furosemide 80 mg IV once to promote diuresis -s/p Kayexalate on 10/18/17 UTI resolved -urine culture positive x Klebsiella on admission -repeated UCx did not show Klebsiella Hypertension -SBP in low levels. -held BP meds -on Dopamine 2 mcg/kg/min Diabetes mellitus type 2 -c/w glycemic control Diet -Glucerna by OG tube/ continuous @ 40 cc/hr Prophylaxis -stress ulcer prophylaxis with protonix 40 mg IV QD -DVT prophylaxis with SCDs and heparin SC Q12. Platelets wnl - Date & Time Date: 10/19/17 Time: 07:55 <Shoaib Higuera - Last Filed: 10/19/17 16:36> CCU Objective - Vital Signs / Intake & Output Vital Signs (Last 4 hours): Vital Signs Temp Pulse Resp BP Pulse Ox 10/19/17 16:00 98.5 F 102 H 136/47 L 100 10/19/17 15:00 105 H 25 H 137/44 L 100 10/19/17 14:00 98 H 25 H 122/45 L 100 10/19/17 13:31 97.5 F L 102 H 100 H 125/45 L 100 10/19/17 13:00 100 H 22 116/44 L 100 Intake and Output (Last 8hrs): Intake & Output 10/19/17 10/19/17 10/19/17 06:59 14:59 22:59 Intake Total 228 1162 Output Total 55 60 Balance 173 1102 Intake: IV 28 32 Intake, Piggyback 750 Tube Feeding 100 280 Free Water Flush 100 100 Output: Urine 55 60 Urethral (Jamil) 55 60 Other: # Bowel Movements 1 1 1 - Medications Active Medications: Active Medications Generic Name Dose Route Start Last Admin Trade Name Freq PRN Reason Stop Dose Admin Acetaminophen 975 mg 10/11/17 20:15 Tylenol 325mg Tab PO ONCE PRN Fever >100.4 F Aspirin 81 mg 02/08/18 13:15 10/19/17 08:18 Aspirin Chewable PO 81 mg DAILY MI Administration Atorvastatin Calcium 20 mg 10/12/17 09:00 10/19/17 08:20 Lipitor PO 20 mg DAILY MI Administration Haloperidol Lactate 1 mg 10/11/17 20:15 Haldol IVP Q6 PRN Agitation Heparin Sodium (Porcine) 5,000 units 10/18/17 12:45 10/19/17 08:19 Heparin SC 5,000 units Q12 MI Administration Protocol Meropenem 500 mg/ Sodium 100 mls @ 100 mls/hr 10/15/17 10:30 10/19/17 08:20 Chloride IVPB 100 mls/hr Q12 MI Administration Protocol Fluconazole 100 mls @ 100 mls/hr 10/15/17 10:30 10/19/17 08:18 Diflucan Iv 200 Mg/100 Ml Ns IVPB 100 mls/hr DAILY MI Administration Linezolid 600 mg in 300 mls @ 300 mls/hr 10/15/17 21:00 10/19/17 11:23 Zyvox 600mg/300ml D5w IVPB 300 mls/hr Q12 MI Administration Protocol Azithromycin 500 mg/ Sodium 250 mls @ 250 mls/hr 10/18/17 12:45 10/19/17 08: 22 Chloride IVPB 250 mls/hr DAILY MI Administration Protocol Propofol 1,000 mg in 100 mls @ 3.674 mls/hr 10/18/17 23:45 Diprivan IV 10/19/17 23:50 .Q24H MI Protocol 10 MCG/KG/MIN Insulin Human Lispro 0 units 10/11/17 22:00 10/19/17 11:23 Humalog SC 1 units ACHS MI Administration Protocol Ipratropium [place] 0.5 mg 10/18/17 14:00 10/19/17 14:18 Atrovent IH 0.5 mg RQ6 MI Administration Levalbuterol HCl 0.63 mg 10/12/17 00:00 10/19/17 08:48 Xopenex INH 0.63 mg RQ8 MI Administration Levothyroxine Sodium 50 mcg 10/12/17 06:30 10/19/17 05:35 Synthroid PO 50 mcg DAILY@0630 MI Administration Methylprednisolone 40 mg 10/17/17 15:45 02/13/18 16:25 Solu-Medrol IVP 40 mg Q6H MI Administration Metoclopramide HCl 10 mg 10/19/17 01:00 10/19/17 16:25 Reglan IVP 10 mg Q8 MI Administration Pantoprazole Sodium 40 mg 10/13/17 09:00 10/19/17 08:20 Protonix Inj IVP 40 mg DAILY MI Administration - Patient Studies Lab Studies: Microbiology Studies 10/15/17 10:20 Blood Culture - Preliminary Blood NO GROWTH AFTER 4 DAYS Lab Studies 10/19/17 10/19/17 10/19/17 Range/Units 16:16 11:08 04:32 WBC (4.8-10.8) K/uL RBC (3.80-5.20) Mil/uL Hgb (12.0-16.0) g/dL Hct (34.0-47.0) % MCV (81.0-99.0) fl MCH (27.0-31.0) pg MCHC (33.0-37.0) g/dL RDW (11.5-14.5) % Plt Count (130-400) K/uL pCO2 (35-45) mm/Hg pO2 (80-100) mm/Hg HCO3 (21-28) mmol/L ABG pH (7.35-7.45) ABG Total CO2 (22-28) mmol/L ABG O2 Saturation (95-98) % ABG Base Excess (-2.0-3.0) mmol/L Michael Test ABG Potassium (3.6-5.2) mmol/L A-a O2 Difference mm/Hg Sodium (132-148) mmol/L Chloride (98-107) mmol/L Glucose (65-105) mg/dL Lactate (0.7-2.1) mmol/L Vent Mode Mechanical Rate FiO2 % Tidal Volume PEEP Potassium (3.6-5.0) MMOL/L Carbon Dioxide (22-30) mmol/L Anion Gap (10-20) BUN (7-17) mg/dl Creatinine (0.7-1.2) mg/dl Est GFR ( Amer) Est GFR (Non-Af Amer) POC Glucose (mg/dL) 310 H 166 H 219 H (65-110) mg/dL Random Glucose (65-105) mg/dL Calcium (8.4-10.2) mg/dL Phosphorus (2.5-4.5) mg/dl Magnesium (1.6-2.3) MG/DL Total Bilirubin (0.2-1.3) mg/dl AST (14-36) U/L ALT (9-52) U/L Alkaline Phosphatase (38-126) U/L Total Protein (6.3-8.2) G/DL Albumin (3.5-5.0) g/dL Globulin (2.2-3.9) gm/dL Albumin/Globulin Ratio (1.0-2.1) Arterial Blood Potassium (3.6-5.2) mmol/L 10/19/17 10/19/17 10/19/17 Range/Units 04:30 04:30 04:00 WBC 17.7 H (4.8-10.8) K/uL RBC 2.76 L (3.80-5.20) Mil/uL Hgb 8.7 L (12.0-16.0) g/dL Hct 26.2 L (34.0-47.0) % MCV 95.0 D (81.0-99.0) fl MCH 31.4 H (27.0-31.0) pg MCHC 33.0 (33.0-37.0) g/dL RDW 14.5 (11.5-14.5) % Plt Count 144 (130-400) K/uL pCO2 34 L (35-45) mm/Hg pO2 69 L (80-100) mm/Hg HCO3 15.7 L (21-28) mmol/L ABG pH 7.24 L (7.35-7.45) ABG Total CO2 15.6 L (22-28) mmol/L ABG O2 Saturation 95.5 (95-98) % ABG Base Excess -11.8 L (-2.0-3.0) mmol/L Michael Test Yes ABG Potassium 5.8 H (3.6-5.2) mmol/L A-a O2 Difference 316.0 mm/Hg Sodium 136 133.0 (132-148) mmol/L Chloride 108 H 105.0 (98-107) mmol/L Glucose 266 H (65-105) mg/dL Lactate 3.1 H (0.7-2.1) mmol/L Vent Mode A/c Mechanical Rate 14 FiO2 60.0 % Tidal Volume 400 PEEP 5 Potassium 5.6 H (3.6-5.0) MMOL/L Carbon Dioxide 14 L (22-30) mmol/L Anion Gap 20 (10-20) BUN 75 H (7-17) mg/dl Creatinine 3.3 H (0.7-1.2) mg/dl Est GFR ( Amer) 16 Est GFR (Non-Af Amer) 13 POC Glucose (mg/dL) (65-110) mg/dL Random Glucose 247 H (65-105) mg/dL Calcium 7.5 L (8.4-10.2) mg/dL Phosphorus 8.4 H (2.5-4.5) mg/dl Magnesium 2.0 (1.6-2.3) MG/DL Total Bilirubin 0.6 (0.2-1.3) mg/dl AST 108 H D (14-36) U/L ALT 60 H D (9-52) U/L Alkaline Phosphatase 202 H D (38-126) U/L Total Protein 6.2 L (6.3-8.2) G/DL Albumin 2.3 L D (3.5-5.0) g/dL Globulin 3.9 (2.2-3.9) gm/dL Albumin/Globulin Ratio 0.6 L (1.0-2.1) Arterial Blood Potassium 5.8 H (3.6-5.2) mmol/L 10/18/17 Range/Units 21:45 WBC (4.8-10.8) K/uL RBC (3.80-5.20) Mil/uL Hgb (12.0-16.0) g/dL Hct (34.0-47.0) % MCV (81.0-99.0) fl MCH (27.0-31.0) pg MCHC (33.0-37.0) g/dL RDW (11.5-14.5) % Plt Count (130-400) K/uL pCO2 (35-45) mm/Hg pO2 (80-100) mm/Hg HCO3 (21-28) mmol/L ABG pH (7.35-7.45) ABG Total CO2 (22-28) mmol/L ABG O2 Saturation (95-98) % ABG Base Excess (-2.0-3.0) mmol/L Michael Test ABG Potassium (3.6-5.2) mmol/L A-a O2 Difference mm/Hg Sodium (132-148) mmol/L Chloride (98-107) mmol/L Glucose (65-105) mg/dL Lactate (0.7-2.1) mmol/L Vent Mode Mechanical Rate FiO2 % Tidal Volume PEEP Potassium (3.6-5.0) MMOL/L Carbon Dioxide (22-30) mmol/L Anion Gap (10-20) BUN (7-17) mg/dl Creatinine (0.7-1.2) mg/dl Est GFR ( Amer) Est GFR (Non-Af Amer) POC Glucose (mg/dL) 241 H (65-110) mg/dL Random Glucose (65-105) mg/dL Calcium (8.4-10.2) mg/dL Phosphorus (2.5-4.5) mg/dl Magnesium (1.6-2.3) MG/DL Total Bilirubin (0.2-1.3) mg/dl AST (14-36) U/L ALT (9-52) U/L Alkaline Phosphatase (38-126) U/L Total Protein (6.3-8.2) G/DL Albumin (3.5-5.0) g/dL Globulin (2.2-3.9) gm/dL Albumin/Globulin Ratio (1.0-2.1) Arterial Blood Potassium (3.6-5.2) mmol/L Laboratory Results - last 24 hr 10/18/17 10/19/17 10/19/17 21:45 04:00 04:30 WBC 17.7 H RBC 2.76 L Hgb 8.7 L Hct 26.2 L MCV 95.0 D MCH 31.4 H MCHC 33.0 RDW 14.5 Plt Count 144 pCO2 34 L pO2 69 L HCO3 15.7 L ABG pH 7.24 L ABG Total CO2 15.6 L ABG O2 Saturation 95.5 ABG Base Excess -11.8 L Michael Test Yes ABG Potassium 5.8 H A-a O2 Difference 316.0 Sodium 133.0 Chloride 105.0 Glucose 266 H Lactate 3.1 H Vent Mode A/c Mechanical Rate 14 FiO2 60.0 Tidal Volume 400 PEEP 5 Potassium Carbon Dioxide Anion Gap BUN Creatinine Est GFR ( Amer) Est GFR (Non-Af Amer) POC Glucose (mg/dL) 241 H Random Glucose Calcium Phosphorus Magnesium Total Bilirubin AST ALT Alkaline Phosphatase Total Protein Albumin Globulin Albumin/Globulin Ratio Arterial Blood Potassium 5.8 H 10/19/17 10/19/17 10/19/17 04:30 04:32 11:08 WBC RBC Hgb Hct MCV MCH MCHC RDW Plt Count pCO2 pO2 HCO3 ABG pH ABG Total CO2 ABG O2 Saturation ABG Base Excess Michael Test ABG Potassium A-a O2 Difference Sodium 136 Chloride 108 H Glucose Lactate Vent Mode Mechanical Rate FiO2 Tidal Volume PEEP Potassium 5.6 H Carbon Dioxide 14 L Anion Gap 20 BUN 75 H Creatinine 3.3 H Est GFR ( Amer) 16 Est GFR (Non-Af Amer) 13 POC Glucose (mg/dL) 219 H 166 H Random Glucose 247 H Calcium 7.5 L Phosphorus 8.4 H Magnesium 2.0 Total Bilirubin 0.6 AST 108 H D ALT 60 H D Alkaline Phosphatase 202 H D Total Protein 6.2 L Albumin 2.3 L D Globulin 3.9 Albumin/Globulin Ratio 0.6 L Arterial Blood Potassium 10/19/17 16:16 WBC RBC Hgb Hct MCV MCH MCHC RDW Plt Count pCO2 pO2 HCO3 ABG pH ABG Total CO2 ABG O2 Saturation ABG Base Excess Michael Test ABG Potassium A-a O2 Difference Sodium Chloride Glucose Lactate Vent Mode Mechanical Rate FiO2 Tidal Volume PEEP Potassium Carbon Dioxide Anion Gap BUN Creatinine Est GFR ( Amer) Est GFR (Non-Af Amer) POC Glucose (mg/dL) 310 H Random Glucose Calcium Phosphorus Magnesium Total Bilirubin AST ALT Alkaline Phosphatase Total Protein Albumin Globulin Albumin/Globulin Ratio Arterial Blood Potassium Critical Care Progress Note - Nutrition Nutrition: Nutrition Category Date Time Status NPO Diet [DIET] Diets 10/12/17 Breakfast Active Attending/Attestation - Attestation I have personally seen and examined this patient.: Yes I have fully participated in the care of the patient.: Yes I have reviewed all pertinent clinical information: Yes Notes (Text): 10/19/17 16:33 I have seen and examined the patient. Medical records, lab studies, and imaging were reviewed by me and a management plan was formulated on multidisciplinary rounds with resident Dr. Mascorro. I agree with their above documented assessment and plan. Family wants to try dialysis, despite risks explained to them. Shiley placed by Vascular resident. Will start dialysis, Renal - Dr. Diaz. Mortality risk to patient is extremely high. She is in septic shock on dopamine, will switch to levophed, in acute tubular necrosis with oliguria requiring hemodialysis while also in moderate ARDS. Critical Care Time 35 minutes. Multi-disciplinary rounds were performed with house staff, nursing, speech therapy, respiratory therapy, pharmacy and nutrition with integrated input from the primary team/attending and other consulting services. The documented time is cumulative and includes review of patient data/exams/labs/chart review and examination of the patient on rounds and throughout the day; time is exclusive of any procedures or teaching time.
[2017-10-19] MEDS: Fluconazole IV 200mg/100 ml NS 100 ML IVPB SCH (08:18)
[2017-10-19] MEDS: Meropenem 500 MG in Sodium Chloride 0.9% 100 ML IVPB SCH ×2 (08:20→21:27)
[2017-10-19] MEDS: Linezolid 600 mg in D5W 300 ml 600 MG/300 ML BAG IVPB SCH ×3 (08:21→21:21)
[2017-10-19] MEDS: Azithromycin 500 MG in Sodium Chloride 0.9% 250 ML IVPB SCH (08:22)
[2017-10-19] MEDS: Ipratropium 0.02% Inhal Soln (0.5 mg/2.5 ml) UD IH SCH ×4 (08:48→23:59)
[2017-10-19] MEDS: Levalbuterol 0.63 MG/3 ML Inhal Soln UD INH SCH ×3 (08:48→23:59)
[2017-10-19] MEDS: Propofol 10 mg/ml 1,000 MG/100 ML VIAL IV SCH (08:50)
--- NOTE | 2017-10-19 09:19 | PN ---
DATE: SUBJECTIVE: The patient remained on respirator and is sedated and not responsive. PHYSICAL EXAMINATION: CHEST: Few rhonchi. HEART: No rubs. ABDOMEN: Soft. EXTREMITIES: No edema. NEUROLOGIC: The patient is sedated and on respirator. SKIN: No rash. LABORATORY DATA: As noted here with creatinine going up 3.0, BUN of 57, potassium of 5.7, and CO2 down to 15 IMPRESSION AND PLAN: 1. The patient appear to have nonoliguric acute renal failure. Urine output noted to be somewhat low. 2. Hyperkalemia. 3. Acidosis. RECOMMENDATIONS: 1. My recommendation is to give Kayexalate stat for hyperkalemia. 2. To give sodium bicarbonate if possible through the NG tube 650 mg two tables three times a day. 3. We will serum phosphorus level and the PTH. We will consider dialysis if kidney function continued to worsen. Marino Diaz MD
--- NOTE | 2017-10-19 10:37 | CP.PCM.PN ---
Subjective - Date & Time of Evaluation Date of Evaluation: 10/19/17 Time of Evaluation: 10:35 - Subjective Subjective: Patient will remain on respiratory Sedated and unresponsive Urine output appears to be very low as noted Patient is congested Patient was receiving vasopressor Objective - Vital Signs/Intake and Output Vital Signs (last 24 hours): Temp Pulse Resp BP Pulse Ox 96.7 F L 91 H 18 129/52 L 100 10/19/17 08:27 10/19/17 08:27 10/19/17 08:27 10/19/17 08:27 10/19/17 08:27 Intake and Output: 10/19/17 10/19/17 06:59 18:59 Intake Total 743 72 Output Total 100 Balance 643 72 - Medications Medications: Current Medications Acetaminophen (Tylenol 325mg Tab) 975 mg PO ONCE PRN PRN Reason: Fever >100.4 F Aspirin (Aspirin Chewable) 81 mg PO DAILY [facility] Last Admin: 10/19/17 08:18 Dose: 81 mg Atorvastatin Calcium (Lipitor) 20 mg PO DAILY [facility] Last Admin: 10/19/17 08:20 Dose: 20 mg Haloperidol Lactate (Haldol) 1 mg IVP Q6 PRN PRN Reason: Agitation Heparin Sodium (Porcine) (Heparin) 5,000 units SC Q12 MI PRN Reason: Protocol Last Admin: 10/19/17 08:19 Dose: 5,000 units Meropenem 500 mg/ Sodium (Chloride) 100 mls @ 100 mls/hr IVPB Q12 MI PRN Reason: Protocol Last Admin: 10/19/17 08:20 Dose: 100 mls/hr Fluconazole (Diflucan Iv 200 Mg/100 Ml Ns) 100 mls @ 100 mls/hr IVPB DAILY [facility] Last Admin: 10/19/17 08:18 Dose: 100 mls/hr Linezolid (Zyvox 600mg/300ml D5w) 600 mg in 300 mls @ 300 mls/hr IVPB Q12 [place] PRN Reason: Protocol Last Admin: 10/19/17 08:21 Dose: 300 mls/hr Propofol (Diprivan) 1,000 mg in 100 mls @ 1.837 mls/hr IV .Q24H MI; 5 MCG/KG/ MIN PRN Reason: Protocol Stop: 10/19/17 12:30 Last Admin: 10/19/17 08:50 Dose: 10 mcg/kg/min, 3.674 mls/hr Azithromycin 500 mg/ Sodium (Chloride) 250 mls @ 250 mls/hr IVPB DAILY [place] PRN Reason: Protocol Last Admin: 10/19/17 08:22 Dose: 250 mls/hr Propofol (Diprivan) 1,000 mg in 100 mls @ 3.674 mls/hr IV .Q24H MI; 10 MCG/KG/ MIN PRN Reason: Protocol Stop: 10/19/17 23:50 Insulin Human Lispro (Humalog) 0 units SC ACHS MI PRN Reason: Protocol Last Admin: 10/19/17 06:49 Dose: 2 units Ipratropium [place] (Atrovent) 0.5 mg IH RQ6 [facility] Last Admin: 10/19/17 08:48 Dose: 0.5 mg Levalbuterol HCl (Xopenex) 0.63 mg INH RQ8 [facility] Last Admin: 10/19/17 08:48 Dose: 0.63 mg Levothyroxine Sodium (Synthroid) 50 mcg PO DAILY@0630 [facility] Last Admin: 10/19/17 05:35 Dose: 50 mcg Methylprednisolone (Solu-Medrol) 40 mg IVP Q6H [facility] Last Admin: 10/19/17 09:33 Dose: 40 mg Metoclopramide HCl (Reglan) 10 mg IVP Q8 [facility] Last Admin: 10/19/17 08:21 Dose: 10 mg Pantoprazole Sodium (Protonix Inj) 40 mg IVP DAILY [facility] Last Admin: 10/19/17 08:20 Dose: 40 mg - Labs Labs: 10/19/17 04:30 10/19/17 04:30 PT 20.6 Seconds (9.8-13.1) H 10/15/17 04:45 INR 1.8 (0.9-1.2) H 10/15/17 04:45 APTT 33.2 Seconds (25.6-37.1) 10/13/17 04:15 - Constitutional Appears: In Acute Distress, Chronically Ill - ENT Exam ENT Exam: Mucous Membranes Moist - Neck Exam Neck Exam: absent: Lymphadenopathy - Respiratory Exam Respiratory Exam: absent: Chest Wall Tenderness - Cardiovascular Exam Cardiovascular Exam: absent: Gallop, JVD, Rubs - GI/Abdominal Exam GI & Abdominal Exam: Soft, Normal Bowel Sounds. absent: Tenderness - Extremities Exam Extremities Exam: absent: Calf Tenderness - Back Exam Back Exam: absent: CVA tenderness (L), CVA tenderness (R) - Neurological Exam Neurological Exam: Altered - Psychiatric Exam Psychiatric exam: Flat Affect - Skin Skin Exam: absent: Cyanosis Assessment and Plan (1) Influenza A Status: Acute (2) Pneumonia Status: Acute (3) Respiratory failure Status: Acute (4) Sepsis Status: Acute (5) NAHOMI (acute kidney injury) Assessment & Plan: Acute oliguric renal failure. Urine output noted to be poor Chest x-ray noted to be very congested in addition to the diagnosis of pneumonia that she has been admitted with an influenza. Patient has positive fluid retention to significant amount because of the oliguria. I discussed with the geological specialist for dialysis and he will talk to the family . In main time we'll would try to give Lasix 80 mg IV patient receiving dopamine . Prognosis guarded Also reported hyperkalemia patient has been receiving Kayexalate intermittently Status: Acute
--- NOTE | 2017-10-19 11:06 | RAD ---
HISTORY: reevaluate / Intubated COMPARISON: Chest radiograph dated 10/18/2017 FINDINGS: LUNGS: Patchy bilateral infiltrates redemonstrated. Pulmonary vascular congestion/edema. PLEURA: Probable small bilateral effusions. No pneumothorax apparent. CARDIOVASCULAR: Atherosclerotic aortic calcifications. Cardiomediastinal silhouette unchanged. OSSEOUS STRUCTURES: Unchanged. VISUALIZED UPPER ABDOMEN: Normal. OTHER FINDINGS: Endotracheal and enteric tubes, unchanged. IMPRESSION: No significant interval change.
--- NOTE | 2017-10-19 12:04 | CP.PCM.PN ---
Subjective - Date & Time of Evaluation Date of Evaluation: 10/19/17 Time of Evaluation: 10:00 - Subjective Subjective: remains intubated on pressors s/p influenza a with multilobar pneumonia no new positive cultures Objective - Vital Signs/Intake and Output Vital Signs (last 24 hours): Temp Pulse Resp BP Pulse Ox 96.7 F L 98 H 22 119/42 L 100 10/19/17 08:27 10/19/17 11:00 10/19/17 11:00 10/19/17 11:04 10/19/17 11:00 Intake and Output: 10/19/17 10/19/17 06:59 18:59 Intake Total 743 1002 Output Total 100 10 Balance 643 992 - Medications Medications: Current Medications Acetaminophen (Tylenol 325mg Tab) 975 mg PO ONCE PRN PRN Reason: Fever >100.4 F Aspirin (Aspirin Chewable) 81 mg PO DAILY [facility] Last Admin: 10/19/17 08:18 Dose: 81 mg Atorvastatin Calcium (Lipitor) 20 mg PO DAILY [facility] Last Admin: 10/19/17 08:20 Dose: 20 mg Haloperidol Lactate (Haldol) 1 mg IVP Q6 PRN PRN Reason: Agitation Heparin Sodium (Porcine) (Heparin) 5,000 units SC Q12 MI PRN Reason: Protocol Last Admin: 10/19/17 08:19 Dose: 5,000 units Meropenem 500 mg/ Sodium (Chloride) 100 mls @ 100 mls/hr IVPB Q12 MI PRN Reason: Protocol Last Admin: 10/19/17 08:20 Dose: 100 mls/hr Fluconazole (Diflucan Iv 200 Mg/100 Ml Ns) 100 mls @ 100 mls/hr IVPB DAILY [facility] Last Admin: 10/19/17 08:18 Dose: 100 mls/hr Linezolid (Zyvox 600mg/300ml D5w) 600 mg in 300 mls @ 300 mls/hr IVPB Q12 MI PRN Reason: Protocol Last Admin: 10/19/17 11:23 Dose: 300 mls/hr Propofol (Diprivan) 1,000 mg in 100 mls @ 1.837 mls/hr IV .Q24H MI; 5 MCG/KG/ MIN PRN Reason: Protocol Stop: 10/19/17 12:30 Last Admin: 10/19/17 08:50 Dose: 10 mcg/kg/min, 3.674 mls/hr Azithromycin 500 mg/ Sodium (Chloride) 250 mls @ 250 mls/hr IVPB DAILY MI PRN Reason: Protocol Last Admin: 10/19/17 08:22 Dose: 250 mls/hr Propofol (Diprivan) 1,000 mg in 100 mls @ 3.674 mls/hr IV .Q24H MI; 10 MCG/KG/ MIN PRN Reason: Protocol Stop: 10/19/17 23:50 Insulin Human Lispro (Humalog) 0 units SC ACHS MI PRN Reason: Protocol Last Admin: 10/19/17 11:23 Dose: 1 units Ipratropium [place] (Atrovent) 0.5 mg IH RQ6 [facility] Last Admin: 10/19/17 08:48 Dose: 0.5 mg Levalbuterol HCl (Xopenex) 0.63 mg INH RQ8 [facility] Last Admin: 10/19/17 08:48 Dose: 0.63 mg Levothyroxine Sodium (Synthroid) 50 mcg PO DAILY@0630 [facility] Last Admin: 10/19/17 05:35 Dose: 50 mcg Methylprednisolone (Solu-Medrol) 40 mg IVP Q6H [facility] Last Admin: 10/19/17 09:33 Dose: 40 mg Metoclopramide HCl (Reglan) 10 mg IVP Q8 [facility] Last Admin: 10/19/17 08:21 Dose: 10 mg Pantoprazole Sodium (Protonix Inj) 40 mg IVP DAILY [facility] Last Admin: 10/19/17 08:20 Dose: 40 mg - Labs Labs: 10/19/17 04:30 10/19/17 04:30 PT 20.6 Seconds (9.8-13.1) H 10/15/17 04:45 INR 1.8 (0.9-1.2) H 10/15/17 04:45 APTT 33.2 Seconds (25.6-37.1) 10/13/17 04:15 - Constitutional Appears: Cachectic, Chronically Ill - Head Exam Head Exam: NORMOCEPHALIC - Eye Exam Eye Exam: absent: Scleral icterus - ENT Exam ENT Exam: Mucous Membranes Dry - Neck Exam Neck Exam: absent: Lymphadenopathy - Respiratory Exam Respiratory Exam: Decreased Breath Sounds, Rales, Rhonchi - Cardiovascular Exam Cardiovascular Exam: REGULAR RHYTHM - GI/Abdominal Exam GI & Abdominal Exam: Distended, Soft - Rectal Exam Rectal Exam: Deferred - Exam Exam: NORMAL INSPECTION - Extremities Exam Extremities Exam: Pedal Edema - Back Exam Back Exam: absent: CVA tenderness (L), CVA tenderness (R) - Neurological Exam Neurological Exam: Altered - Psychiatric Exam Psychiatric exam: Depressed - Skin Skin Exam: Dry Assessment and Plan (1) Influenza Status: Acute (2) Pneumonia Status: Acute (3) Sepsis Status: Acute (4) UTI (urinary tract infection) Status: Acute - Assessment and Plan (Free Text) Assessment: cont iv antibiotics discussed on rounds with staff in ICU
[2017-10-19] MEDS ORDERED: Chlorhexidine Gluconate 1 APPL/PKT TP ONE (14:57)
--- NOTE | 2017-10-19 15:27 | CP.PCM.PN ---
Subjective - Date & Time of Evaluation Date of Evaluation: 10/19/17 Time of Evaluation: 12:40 - Subjective Subjective: F/U PNA, Influenza A intubated , sedated Objective - Vital Signs/Intake and Output Vital Signs (last 24 hours): Temp Pulse Resp BP Pulse Ox 97.5 F L 105 H 25 H 137/44 L 100 10/19/17 13:31 10/19/17 15:00 10/19/17 15:00 10/19/17 15:00 10/19/17 15:00 Intake and Output: 10/19/17 10/19/17 06:59 18:59 Intake Total 743 1162 Output Total 100 60 Balance 643 1102 - Medications Medications: Current Medications Acetaminophen (Tylenol 325mg Tab) 975 mg PO ONCE PRN PRN Reason: Fever >100.4 F Aspirin (Aspirin Chewable) 81 mg PO DAILY [facility] Last Admin: 10/19/17 08:18 Dose: 81 mg Atorvastatin Calcium (Lipitor) 20 mg PO DAILY [facility] Last Admin: 10/19/17 08:20 Dose: 20 mg Haloperidol Lactate (Haldol) 1 mg IVP Q6 PRN PRN Reason: Agitation Heparin Sodium (Porcine) (Heparin) 5,000 units SC Q12 MI PRN Reason: Protocol Last Admin: 10/19/17 08:19 Dose: 5,000 units Meropenem 500 mg/ Sodium (Chloride) 100 mls @ 100 mls/hr IVPB Q12 MI PRN Reason: Protocol Last Admin: 10/19/17 08:20 Dose: 100 mls/hr Fluconazole (Diflucan Iv 200 Mg/100 Ml Ns) 100 mls @ 100 mls/hr IVPB DAILY [facility] Last Admin: 10/19/17 08:18 Dose: 100 mls/hr Linezolid (Zyvox 600mg/300ml D5w) 600 mg in 300 mls @ 300 mls/hr IVPB Q12 MI PRN Reason: Protocol Last Admin: 10/19/17 11:23 Dose: 300 mls/hr Azithromycin 500 mg/ Sodium (Chloride) 250 mls @ 250 mls/hr IVPB DAILY [facility] PRN Reason: Protocol Last Admin: 10/19/17 08:22 Dose: 250 mls/hr Propofol (Diprivan) 1,000 mg in 100 mls @ 3.674 mls/hr IV .Q24H MI; 10 MCG/KG/ MIN PRN Reason: Protocol Stop: 10/19/17 23:50 Insulin Human Lispro (Humalog) 0 units SC ACHS MI PRN Reason: Protocol Last Admin: 10/19/17 11:23 Dose: 1 units Ipratropium [place] (Atrovent) 0.5 mg IH RQ6 [facility] Last Admin: 10/19/17 14:18 Dose: 0.5 mg Levalbuterol HCl (Xopenex) 0.63 mg INH RQ8 [facility] Last Admin: 10/19/17 08:48 Dose: 0.63 mg Levothyroxine Sodium (Synthroid) 50 mcg PO DAILY@0630 [facility] Last Admin: 10/19/17 05:35 Dose: 50 mcg Methylprednisolone (Solu-Medrol) 40 mg IVP Q6H [facility] Last Admin: 10/19/17 09:33 Dose: 40 mg Metoclopramide HCl (Reglan) 10 mg IVP Q8 [facility] Last Admin: 10/19/17 08:21 Dose: 10 mg Pantoprazole Sodium (Protonix Inj) 40 mg IVP DAILY [facility] Last Admin: 10/19/17 08:20 Dose: 40 mg - Labs Labs: 10/19/17 04:30 10/19/17 04:30 PT 20.6 Seconds (9.8-13.1) H 10/15/17 04:45 INR 1.8 (0.9-1.2) H 10/15/17 04:45 APTT 33.2 Seconds (25.6-37.1) 10/13/17 04:15 - Constitutional Appears: Chronically Ill - Head Exam Head Exam: NORMAL INSPECTION - Eye Exam Eye Exam: PERRL - ENT Exam Additional comments: Intubated - Neck Exam Neck Exam: Normal Inspection - Respiratory Exam Respiratory Exam: Decreased Breath Sounds (at bases), Rhonchi - Cardiovascular Exam Cardiovascular Exam: REGULAR RHYTHM - GI/Abdominal Exam GI & Abdominal Exam: Soft, Normal Bowel Sounds - Extremities Exam Extremities Exam: Normal Inspection - Neurological Exam Additional comments: Intubated, sedated - Psychiatric Exam Additional comments: Intubated, sedated - Skin Skin Exam: Warm Assessment and Plan (1) Pneumonia Status: Acute (2) Influenza A Status: Acute (3) Respiratory failure Status: Acute (4) Sepsis Status: Acute (5) Anemia Status: Acute (6) NAHOMI (acute kidney injury) Status: Acute - Assessment and Plan (Free Text) Plan: Intubated , sedated , FIO2 60% ,on Zithromax , Merren , Zyvox , Diflucan , CXR B/L infiltrates, vascular congestion edema , no improvement, NAHOMI Patient to have dialysis , prognosis poor , discussed with Patient's family. ICU Time: 40 min
--- NOTE | 2017-10-19 17:39 | CP.PCM.CON ---
History of Present Illness - History of Present Illness History of Present Illness: Vascular Surgery: Dr Tran Consulted for dialysis access on pt. Pt is intubated and sedated. D/W central sterile supply technician. Determined temporary femoral shiley was best approach. Procedure explained to family in detail. Questions answered. Risks and benefits explained. Review of Systems - Review of Systems Systems not reviewed;Unavailable: Intubated Past Patient History - Past Social History Smoking Status: Never Smoked Alcohol: None Drugs: Denies Home Situation {Lives}: With Family - CARDIAC Hx Cardiac Disorders: Yes Hx Hypercholesterolemia: Yes Hx Hypertension: Yes - PULMONARY Hx Respiratory Disorders: Yes Hx Pneumonia: Yes - NEUROLOGICAL Hx Neurological Disorder: No - HEENT Hx HEENT Problems: No - RENAL Hx Chronic Kidney Disease: No - ENDOCRINE/METABOLIC Hx Endocrine Disorders: Yes Hx Diabetes Mellitus Type 2: Yes Hx Hypothyroidism: Yes - HEMATOLOGICAL/ONCOLOGICAL Hx Blood Disorders: No - INTEGUMENTARY Hx Dermatological Problems: No - MUSCULOSKELETAL/RHEUMATOLOGICAL Hx Musculoskeletal Disorders: Yes Hx Falls: Yes - GASTROINTESTINAL Hx Gastrointestinal Disorders: No - GENITOURINARY/GYNECOLOGICAL Hx Genitourinary Disorders: No - PSYCHIATRIC Hx Psychophysiologic Disorder: Yes Hx Anxiety: Yes Hx Substance Use: No Meds Allergies/Adverse Reactions: Allergies Allergy/AdvReac Type Severity Reaction Status Date / Time No Known Allergies Allergy Verified 10/07/17 00:35 - Medications Medications: Current Medications Acetaminophen (Tylenol 325mg Tab) 975 mg PO ONCE PRN PRN Reason: Fever >100.4 F Aspirin (Aspirin Chewable) 81 mg PO DAILY [facility] Last Admin: 10/19/17 08:18 Dose: 81 mg Atorvastatin Calcium (Lipitor) 20 mg PO DAILY [facility] Last Admin: 10/19/17 08:20 Dose: 20 mg Haloperidol Lactate (Haldol) 1 mg IVP Q6 PRN PRN Reason: Agitation Heparin Sodium (Porcine) (Heparin) 5,000 units SC Q12 [facility] PRN Reason: Protocol Last Admin: 10/19/17 08:19 Dose: 5,000 units Meropenem 500 mg/ Sodium (Chloride) 100 mls @ 100 mls/hr IVPB Q12 [place] PRN Reason: Protocol Last Admin: 10/19/17 08:20 Dose: 100 mls/hr Fluconazole (Diflucan Iv 200 Mg/100 Ml Ns) 100 mls @ 100 mls/hr IVPB DAILY [facility] Last Admin: 10/19/17 08:18 Dose: 100 mls/hr Linezolid (Zyvox 600mg/300ml D5w) 600 mg in 300 mls @ 300 mls/hr IVPB Q12 [place] PRN Reason: Protocol Last Admin: 10/19/17 11:23 Dose: 300 mls/hr Azithromycin 500 mg/ Sodium (Chloride) 250 mls @ 250 mls/hr IVPB DAILY [place] PRN Reason: Protocol Last Admin: 10/19/17 08:22 Dose: 250 mls/hr Propofol (Diprivan) 1,000 mg in 100 mls @ 3.674 mls/hr IV .Q24H MI; 10 MCG/KG/ MIN PRN Reason: Protocol Stop: 10/19/17 23:50 Insulin Human Lispro (Humalog) 0 units SC ACHS MI PRN Reason: Protocol Last Admin: 10/19/17 16:37 Dose: 4 units Ipratropium [place] (Atrovent) 0.5 mg IH RQ6 [facility] Last Admin: 10/19/17 14:18 Dose: 0.5 mg Levalbuterol HCl (Xopenex) 0.63 mg INH RQ8 [facility] Last Admin: 10/19/17 08:48 Dose: 0.63 mg Levothyroxine Sodium (Synthroid) 50 mcg PO DAILY@0630 [facility] Last Admin: 10/19/17 05:35 Dose: 50 mcg Methylprednisolone (Solu-Medrol) 40 mg IVP Q6H [facility] Last Admin: 10/19/17 16:25 Dose: 40 mg Metoclopramide HCl (Reglan) 10 mg IVP Q8 [facility] Last Admin: 10/19/17 16:25 Dose: 10 mg Pantoprazole Sodium (Protonix Inj) 40 mg IVP DAILY [facility] Last Admin: 10/19/17 08:20 Dose: 40 mg Physical Exam - Constitutional Appears: Chronically Ill - ENT Exam ENT Exam: Mucous Membranes Dry - Respiratory Exam Additional comments: intubated - Cardiovascular Exam Cardiovascular Exam: Tachycardia - GI/Abdominal Exam GI & Abdominal Exam: Soft. absent: Distended Results - Vital Signs Recent Vital Signs: Last Vital Signs Temp 98.5 F 10/19/17 16:00 Pulse 100 H 10/19/17 17:00 Resp 21 10/19/17 17:00 BP 122/49 L 10/19/17 17:00 Pulse Ox 100 10/19/17 17:00 - Labs Result Diagrams: 10/19/17 04:30 10/19/17 04:30 Labs: Laboratory Results - last 24 hr 10/18/17 10/19/17 10/19/17 21:45 04:00 04:30 WBC 17.7 H RBC 2.76 L Hgb 8.7 L Hct 26.2 L MCV 95.0 D MCH 31.4 H MCHC 33.0 RDW 14.5 Plt Count 144 pCO2 34 L pO2 69 L HCO3 15.7 L ABG pH 7.24 L ABG Total CO2 15.6 L ABG O2 Saturation 95.5 ABG Base Excess -11.8 L Michael Test Yes ABG Potassium 5.8 H A-a O2 Difference 316.0 Sodium 133.0 Chloride 105.0 Glucose 266 H Lactate 3.1 H Vent Mode A/c Mechanical Rate 14 FiO2 60.0 Tidal Volume 400 PEEP 5 Potassium Carbon Dioxide Anion Gap BUN Creatinine Est GFR ( Amer) Est GFR (Non-Af Amer) POC Glucose (mg/dL) 241 H Random Glucose Calcium Phosphorus Magnesium Total Bilirubin AST ALT Alkaline Phosphatase Total Protein Albumin Globulin Albumin/Globulin Ratio Arterial Blood Potassium 5.8 H 10/19/17 10/19/17 10/19/17 04:30 04:32 11:08 WBC RBC Hgb Hct MCV MCH MCHC RDW Plt Count pCO2 pO2 HCO3 ABG pH ABG Total CO2 ABG O2 Saturation ABG Base Excess Michael Test ABG Potassium A-a O2 Difference Sodium 136 Chloride 108 H Glucose Lactate Vent Mode Mechanical Rate FiO2 Tidal Volume PEEP Potassium 5.6 H Carbon Dioxide 14 L Anion Gap 20 BUN 75 H Creatinine 3.3 H Est GFR ( Amer) 16 Est GFR (Non-Af Amer) 13 POC Glucose (mg/dL) 219 H 166 H Random Glucose 247 H Calcium 7.5 L Phosphorus 8.4 H Magnesium 2.0 Total Bilirubin 0.6 AST 108 H D ALT 60 H D Alkaline Phosphatase 202 H D Total Protein 6.2 L Albumin 2.3 L D Globulin 3.9 Albumin/Globulin Ratio 0.6 L Arterial Blood Potassium 10/19/17 16:16 WBC RBC Hgb Hct MCV MCH MCHC RDW Plt Count pCO2 pO2 HCO3 ABG pH ABG Total CO2 ABG O2 Saturation ABG Base Excess Michael Test ABG Potassium A-a O2 Difference Sodium Chloride Glucose Lactate Vent Mode Mechanical Rate FiO2 Tidal Volume PEEP Potassium Carbon Dioxide Anion Gap BUN Creatinine Est GFR ( Amer) Est GFR (Non-Af Amer) POC Glucose (mg/dL) 310 H Random Glucose Calcium Phosphorus Magnesium Total Bilirubin AST ALT Alkaline Phosphatase Total Protein Albumin Globulin Albumin/Globulin Ratio Arterial Blood Potassium Assessment & Plan - Assessment and Plan (Free Text) Assessment: 87F in NAHOMI Plan: shiley placed bedside w/ US guidance OK to dialyze please let us know if anything else is needed D/w Dr Chelsea Ivy, PGY3 Central Line Placement - Central Line Placement Indication: Emergent IV Access (Dialysis need - 12Fr Shiley) Central Line Placement: Left: Femoral The Area Was Thoroughly Prepared With: Chlorhexidine, Draped Using Sterile Technique Area Was Locally Anesthetized With: Lidocaine 1% Procedure: Double Lumen, Placed Using Standard Seldinger Technique, Catheter Was Sewn Into Place, Sterile Dressing Placed Over Line, Procedure Tolerated Well
[2017-10-19] MEDS ORDERED: DOPamine 400mg/250ml D5W 400 MG/250 ML BAG IV ONE (21:01)
[2017-10-20 05:29] LABS: BASO % 0.1 % (0.0-2.0); HEMOGLOBIN 8.1 g/dL (12.0-16.0); LYMPH # 0.6 K/uL (1.0-4.3); LYMPH % 4.1 % (20.0-40.0); MEAN CELL VOLUME 93.2 fl (81.0-99.0); MEAN CORPUSCULAR HEMOGLOBIN 30.7 pg (27.0-31.0); MEAN PLATELET VOLUME 9.4 fl (7.2-11.7); MONO # 0.2 K/uL (0.0-0.8); MONO % 1.3 % (0.0-10.0); NEUT # 14.3 K/uL (1.8-7.0); NEUT % 94.5 % (50.0-75.0); NRBC % 0.6 % (0.0-0.0); RBC 2.64 Mil/uL (3.80-5.20); RED CELL DISTRIBUTION WIDTH 13.7 % (11.5-14.5); WHITE BLOOD COUNT 15.1 K/uL (4.8-10.8)
[2017-10-20 05:44] LABS: ABG ALLEN TEST YES; ARTERIAL BLOOD GAS HCO3 20.9 mmol/L (21-28); ARTERIAL BLOOD GAS O2 SAT 99.4 % (95-98); ARTERIAL BLOOD GAS PCO2 37 mm/Hg (35-45); ARTERIAL BLOOD GAS PH 7.34 (7.35-7.45); ARTERIAL BLOOD GAS PO2 165 mm/Hg (80-100); ARTERIAL BLOOD GAS TCO2 21.1 mmol/L (22-28)
[2017-10-20] MEDS: Levothyroxine 50 MCG TAB PO SCH (05:44)
[2017-10-20 05:47] LABS: CALCIUM 7.4 mg/dL (8.4-10.2)
[2017-10-20] MEDS: MethylPREDNISolone 40 mg Vial IVP SCH ×4 (05:48→21:20)
[2017-10-20] MEDS: Insulin Lispro (humaLOG) 100 Units/ml Inj SC SCH ×4 (06:42→23:36)
[2017-10-20] MEDS: Meropenem 500 MG in Sodium Chloride 0.9% 100 ML IVPB SCH ×2 (08:21→21:18)
[2017-10-20] MEDS: Fluconazole IV 200mg/100 ml NS 100 ML IVPB SCH (08:21)
[2017-10-20] MEDS: Linezolid 600 mg in D5W 300 ml 600 MG/300 ML BAG IVPB SCH ×2 (08:23→21:53)
[2017-10-20] MEDS: Ipratropium 0.02% Inhal Soln (0.5 mg/2.5 ml) UD IH SCH ×3 (08:48→19:26)
[2017-10-20] MEDS: Levalbuterol 0.63 MG/3 ML Inhal Soln UD INH SCH ×2 (08:48→19:25)
--- NOTE | 2017-10-20 09:59 | CP.PCM.PN ---
Subjective - Date & Time of Evaluation Date of Evaluation: 10/20/17 Time of Evaluation: 09:56 - Subjective Subjective: Patient is remained on respirator. Patient sedated Hemodialysis completed early this morning Ultrafiltration 1000 mL fluid has been removed Dialysis is done via left femoral catheter. Objective - Vital Signs/Intake and Output Vital Signs (last 24 hours): Temp Pulse Resp BP Pulse Ox 98.6 F 82 17 100/32 L 100 10/20/17 08:39 10/20/17 09:00 10/20/17 09:00 10/20/17 09:00 10/20/17 09:00 Intake and Output: 10/20/17 10/20/17 06:59 18:59 Intake Total 171 600 Output Total 1375 Balance -1204 600 - Medications Medications: Current Medications Acetaminophen (Tylenol 325mg Tab) 975 mg PO ONCE PRN PRN Reason: Fever >100.4 F Atorvastatin Calcium (Lipitor) 20 mg PO DAILY [facility] Last Admin: 10/20/17 08:21 Dose: 20 mg Haloperidol Lactate (Haldol) 1 mg IVP Q6 PRN PRN Reason: Agitation Meropenem 500 mg/ Sodium (Chloride) 100 mls @ 100 mls/hr IVPB Q12 MI PRN Reason: Protocol Last Admin: 10/20/17 08:21 Dose: 100 mls/hr Fluconazole (Diflucan Iv 200 Mg/100 Ml Ns) 100 mls @ 100 mls/hr IVPB DAILY [facility] Last Admin: 10/20/17 08:21 Dose: 100 mls/hr Linezolid (Zyvox 600mg/300ml D5w) 600 mg in 300 mls @ 300 mls/hr IVPB Q12 MI PRN Reason: Protocol Last Admin: 10/20/17 08:23 Dose: 300 mls/hr Azithromycin 500 mg/ Sodium (Chloride) 250 mls @ 250 mls/hr IVPB DAILY [place] PRN Reason: Protocol Last Admin: 10/19/17 08:22 Dose: 250 mls/hr Norepinephrine Bitartrate 16 (mg/ Dextrose) 266 mls @ 2.49 mls/hr IV .Q24H ONE ; 2.5 MCG/MIN PRN Reason: Protocol Stop: 10/20/17 19:24 Last Admin: 10/19/17 22:30 Dose: 2.49 mls/hr Insulin Human Lispro (Humalog) 0 units SC ACHS [facility] PRN Reason: Protocol Last Admin: 10/20/17 06:42 Dose: Not Given Ipratropium [place] (Atrovent) 0.5 mg IH RQ6 [facility] Last Admin: 10/20/17 08:48 Dose: 0.5 mg Levalbuterol HCl (Xopenex) 0.63 mg INH RQ8 [facility] Last Admin: 10/20/17 08:48 Dose: 0.63 mg Levothyroxine Sodium (Synthroid) 50 mcg PO DAILY@0630 [facility] Last Admin: 10/20/17 05:44 Dose: 50 mcg Methylprednisolone (Solu-Medrol) 40 mg IVP Q6H [facility] Last Admin: 10/20/17 09:00 Dose: 40 mg Metoclopramide HCl (Reglan) 10 mg IVP Q8 [facility] Last Admin: 10/20/17 08:22 Dose: 10 mg Pantoprazole Sodium (Protonix Inj) 40 mg IVP Q12H [facility] Last Admin: 10/20/17 09:00 Dose: 40 mg - Labs Labs: 10/20/17 04:20 10/20/17 04:20 PT 20.6 Seconds (9.8-13.1) H 10/15/17 04:45 INR 1.8 (0.9-1.2) H 10/15/17 04:45 APTT 33.2 Seconds (25.6-37.1) 10/13/17 04:15 - Constitutional Appears: No Acute Distress - ENT Exam ENT Exam: Mucous Membranes Moist - Neck Exam Neck Exam: absent: Lymphadenopathy - Respiratory Exam Respiratory Exam: Rales, Rhonchi. absent: Chest Wall Tenderness - Cardiovascular Exam Cardiovascular Exam: absent: Gallop, JVD, Rubs - GI/Abdominal Exam GI & Abdominal Exam: Soft, Normal Bowel Sounds - Extremities Exam Extremities Exam: absent: Calf Tenderness - Back Exam Back Exam: absent: CVA tenderness (L), CVA tenderness (R) - Neurological Exam Neurological Exam: Altered - Psychiatric Exam Psychiatric exam: Flat Affect - Skin Skin Exam: absent: Cyanosis Assessment and Plan (1) Influenza A Status: Acute (2) Pneumonia Status: Acute (3) Respiratory failure Status: Acute (4) Sepsis Status: Acute (5) NAHOMI (acute kidney injury) Assessment & Plan: oliguric ARF Completed hemodialysis early this AM. With ultrafiltration 1000 mL minus Blood test review and noted with improvement of serum creatinine post- hemodialysis and serum potassium also reported to be normal mild Patient scheduled for more dialysis tomorrow morning. Discussed with nurse the resident in ICU. Respiratory failure as per primary team Patient admitted initially with influenza positive with pneumonia and she has been receiving antibiotics. Status: Acute
--- NOTE | 2017-10-20 10:22 | CP.CCUPN ---
<Heidi Mascorro - Last Filed: 10/20/17 14:55> CCU Subjective - Physician Review Subjective (Free Text): 10/20/17 87 y/o F /with PMHX of HTN, HYpercholesterolemia, DM admitted with persistent cough, chest congestion, fevers for 2 days found to be Influenza positive with superimposed multilobar pneumonia. Patient with worsening renal function, and hypotension now in dopamine Patient remains intubated and sedated with propofol. Patient is intubated and sedated. ABG done today on FiO2 70 %, showed PaO2 165 , O2 sat 99.4 %. FiO2 was reduced to 60 %. Now patient is ON PRVC AC set 14 TV 400, 99- 100 % on FiO2 60 % PEEP 5. As per nurse report patient still oliguric , output overnight was 125 ml/12 hours. Patient had dialysis today, as per nurse 's mote was started around 2 am today, and was completed at 5 am. 1 L of fluid was removed, and patient tolerated procedure well. As per report yesterday evening patient had an episode of blood mixed with tube feed residual , ASA, Heparin SC and feed was held, as well as protonix was increased to 40 mg Q12. VS: BP: 103/39, HR: 87/min, RR: 18, Oxygen sat: 99 % on FiO2 60 %. Patient is on levophed 2.5 mcg/min. Dopamine was DC. I & O reviewed. Still oliguric Critical Care Time Spent (in minutes): 45 CCU Objective - Vital Signs / Intake & Output Vital Signs (Last 4 hours): Vital Signs Temp Pulse Resp BP Pulse Ox 10/20/17 10:00 87 18 103/39 L 99 10/20/17 09:00 82 17 100/32 L 100 10/20/17 08:39 98.6 F 83 17 99/28 L 95 10/20/17 07:00 81 20 103/30 L 98 Intake and Output (Last 8hrs): Intake & Output 10/19/17 10/20/17 10/20/17 22:59 06:59 14:59 Intake Total 294 57 600 Output Total 350 1075 0 Balance -56 -1018 600 Weight 146 lb 2.664 oz Intake: IV 14 47 Intake, Piggyback 10 500 Tube Feeding 80 Free Water Flush 200 100 Output: Gastric Amount 250 Stomach 250 Urine 100 75 0 Urethral (Jamil) 100 75 0 Ultrafiltrate 1000 Other: # Bowel Movements 1 - Physical Exam Head: Positive for: Atraumatic, Normocephalic. Negative for: Tenderness, Contusion Pupils: Positive for: PERRL. Negative for: Sluggish, Non-Reactive Extroacular Muscles: Negative for: Gaze Palsy, Entrapment Conjunctiva: Positive for: Normal. Negative for: Injected, Icteric Mouth: Positive for: Moist Mucous Membranes Pharnyx: Positive for: Normal Nose (External): Positive for: Atraumatic Nose (Internal): Positive for: Normal Inspection Neck: Positive for: Trachea Midline. Negative for: Meningeal Signs, MIDLINE TENDERNESS, Paraspinal Tenderness, JVD, Lymphadenopathy, Bruit, Other Respiratory/Chest: Positive for: Clear to Auscultation, Good Air Exchange. Negative for: Respiratory Distress, Accessory Muscle Use, Wheezes, Rales, Rhonchi, Tender to Palpation Cardiovascular: Positive for: Regular Rate and Rhythm, Normal S1, S2, Peripheal Pulses Present. Negative for: Murmurs, Irregular Rhythm, Tachycardic Abdomen: Positive for: Normal Bowel Sounds. Negative for: Tenderness, Distention, Peritoneal Signs Upper Extremity: Positive for: Normal Inspection, Edema (no pitting edema in upper/lower extremities), NORMAL PULSES, Capillary Refill < 2s. Negative for: Cyanosis Lower Extremity: Positive for: Edema (in lower extremities), NORMAL PULSES, Capillary Refill < 2 s Neurological: Positive for: Other (sedated on mechanical ventilation) Skin: Positive for: Warm, Dry, Pale Psychiatric: Positive for: Other (Intubated and sedated). Negative for: Alert, Oriented x 3 - Medications Active Medications: Active Medications Generic Name Dose Route Start Last Admin Trade Name Freq PRN Reason Stop Dose Admin Acetaminophen 975 mg 10/11/17 20:15 Tylenol 325mg Tab PO ONCE PRN Fever >100.4 F Atorvastatin Calcium 20 mg 10/12/17 09:00 10/20/17 08:21 Lipitor PO 20 mg DAILY MI Administration Haloperidol Lactate 1 mg 10/11/17 20:15 Haldol IVP Q6 PRN Agitation Meropenem 500 mg/ Sodium 100 mls @ 100 mls/hr 10/15/17 10:30 10/20/17 08:21 Chloride IVPB 100 mls/hr Q12 MI Administration Protocol Fluconazole 100 mls @ 100 mls/hr 10/15/17 10:30 10/20/17 08:21 Diflucan Iv 200 Mg/100 Ml Ns IVPB 100 mls/hr DAILY MI Administration Linezolid 600 mg in 300 mls @ 300 mls/hr 10/15/17 21:00 10/20/17 08:23 Zyvox 600mg/300ml D5w IVPB 300 mls/hr Q12 MI Administration Protocol Azithromycin 500 mg/ Sodium 250 mls @ 250 mls/hr 10/18/17 12:45 10/19/17 08: 22 Chloride IVPB 250 mls/hr DAILY MI Administration Protocol Norepinephrine Bitartrate 16 266 mls @ 2.49 mls/hr 10/19/17 19:25 10/19/17 22 :30 mg/ Dextrose IV 10/20/17 19:24 2.49 mls/hr .Q24H ONE Administration Protocol 2.5 MCG/MIN Insulin Human Lispro 0 units 10/11/17 22:00 10/20/17 06:42 Humalog SC Not Given ACHS MI Protocol Ipratropium [place] 0.5 mg 10/18/17 14:00 10/20/17 08:48 Atrovent IH 0.5 mg RQ6 MI Administration Levalbuterol HCl 0.63 mg 10/12/17 00:00 10/20/17 08:48 Xopenex INH 0.63 mg RQ8 MI Administration Levothyroxine Sodium 50 mcg 10/12/17 06:30 10/20/17 05:44 Synthroid PO 50 mcg DAILY@0630 MI Administration Methylprednisolone 40 mg 10/17/17 15:45 10/20/17 09:00 Solu-Medrol IVP 40 mg Q6H MI Administration Metoclopramide HCl 10 mg 10/19/17 01:00 10/20/17 08:22 Reglan IVP 10 mg Q8 MI Administration Pantoprazole Sodium 40 mg 10/19/17 22:00 10/20/17 09:00 Protonix Inj IVP 40 mg Q12H MI Administration - Patient Studies Lab Studies: Microbiology Studies 10/15/17 10:20 Blood Culture - Preliminary Blood NO GROWTH AFTER 4 DAYS Lab Studies 10/20/17 10/20/17 10/20/17 Range/Units 05:37 04:29 04:20 WBC (4.8-10.8) K/uL RBC (3.80-5.20) Mil/uL Hgb (12.0-16.0) g/dL Hct (34.0-47.0) % MCV (81.0-99.0) fl MCH (27.0-31.0) pg MCHC (33.0-37.0) g/dL RDW (11.5-14.5) % Plt Count (130-400) K/uL MPV (7.2-11.7) fl Neut % (Auto) (50.0-75.0) % Lymph % (Auto) (20.0-40.0) % [place] % (Auto) (0.0-10.0) % Eos % (Auto) (0.0-4.0) % Baso % (Auto) (0.0-2.0) % Neut # (Auto) (1.8-7.0) K/uL Lymph # (Auto) (1.0-4.3) K/uL [place] # (Auto) (0.0-0.8) K/uL Eos # (Auto) (0.0-0.7) K/uL Baso # (Auto) (0.0-0.2) K/uL Total Counted Neutrophils % (Manual) Band Neutrophils % Lymphocytes % (Manual) Reactive Lymphs % Monocytes % (Manual) Eosinophils % (Manual) Basophils % (Manual) Metamyelocytes % Myelocytes % Promyelocytes % Blast Cells % Plasma Cell % (Manual) Nucleated RBC % Hypersegmented Polys Smudge Cells Toxic Granulation Dohle Bodies Erlinda Rods Platelet Estimate Plt Clumps, EDTA Large Platelets Giant Platelets RBC Morphology Polychromasia Hypochromasia (manual) Poikilocytosis (manual Basophilic Stippling Anisocytosis (manual) Microcytosis (manual) Macrocytosis (manual) Spherocytes Sickle Cells Target Cells Tear Drop Cells Ovalocytes Stomatocytes Helmet Cells Foy-Jenera Bodies [place] Cells Acanthocytes (Spur) Rouleaux Schistocytes pCO2 37 (35-45) mm/Hg pO2 165 H (80-100) mm/Hg HCO3 20.9 L (21-28) mmol/L ABG pH 7.34 L (7.35-7.45) ABG Total CO2 21.1 L (22-28) mmol/L ABG O2 Saturation 99.4 H (95-98) % ABG Base Excess -5.2 L (-2.0-3.0) mmol/L Michael Test Yes ABG Potassium 4.4 (3.6-5.2) mmol/L A-a O2 Difference 288.0 mm/Hg Glucose 201 H (65-105) mg/dL Lactate 2.4 H (0.7-2.1) mmol/L Vent Mode A/c Mechanical Rate 14 FiO2 70.0 % Tidal Volume 400 PEEP 5 Sodium 133.0 136 (132-148) mmol/l Potassium 4.3 (3.6-5.0) MMOL/L Chloride 102.0 103 (98-107) mmol/L Carbon Dioxide 22 (22-30) mmol/L Anion Gap 15 (10-20) BUN 60 H (7-17) mg/dl Creatinine 2.6 H (0.7-1.2) mg/dl Est GFR ( Amer) 21 Est GFR (Non-Af Amer) 17 POC Glucose (mg/dL) 197 H (65-110) mg/dL Random Glucose 185 H (65-105) mg/dL Calcium 7.4 L (8.4-10.2) mg/dL Arterial Blood Potassium 4.4 (3.6-5.2) mmol/L 10/20/17 10/19/17 10/19/17 Range/Units 04:20 21:20 16:16 WBC 15.1 H (4.8-10.8) K/uL RBC 2.64 L (3.80-5.20) Mil/uL Hgb 8.1 L (12.0-16.0) g/dL Hct 24.6 L (34.0-47.0) % MCV 93.2 (81.0-99.0) fl MCH 30.7 (27.0-31.0) pg MCHC 33.0 (33.0-37.0) g/dL RDW 13.7 (11.5-14.5) % Plt Count 76 L D (130-400) K/uL MPV 9.4 (7.2-11.7) fl Neut % (Auto) 94.5 H (50.0-75.0) % Lymph % (Auto) 4.1 L (20.0-40.0) % [place] % (Auto) 1.3 (0.0-10.0) % Eos % (Auto) 0.0 (0.0-4.0) % Baso % (Auto) 0.1 (0.0-2.0) % Neut # (Auto) 14.3 H (1.8-7.0) K/uL Lymph # (Auto) 0.6 L (1.0-4.3) K/uL [place] # (Auto) 0.2 (0.0-0.8) K/uL Eos # (Auto) 0.0 (0.0-0.7) K/uL Baso # (Auto) 0.0 (0.0-0.2) K/uL Total Counted Cancelled Neutrophils % (Manual) Cancelled Band Neutrophils % Cancelled Lymphocytes % (Manual) Cancelled Reactive Lymphs % Cancelled Monocytes % (Manual) Cancelled Eosinophils % (Manual) Cancelled Basophils % (Manual) Cancelled Metamyelocytes % Cancelled Myelocytes % Cancelled Promyelocytes % Cancelled Blast Cells % Cancelled Plasma Cell % (Manual) Cancelled Nucleated RBC % Cancelled Hypersegmented Polys Cancelled Smudge Cells Cancelled Toxic Granulation Cancelled Dohle Bodies Cancelled Erlinda Rods Cancelled Platelet Estimate Cancelled Plt Clumps, EDTA Cancelled Large Platelets Cancelled Giant Platelets Cancelled RBC Morphology Cancelled Polychromasia Cancelled Hypochromasia (manual) Cancelled Poikilocytosis (manual Cancelled Basophilic Stippling Cancelled Anisocytosis (manual) Cancelled Microcytosis (manual) Cancelled Macrocytosis (manual) Cancelled Spherocytes Cancelled Sickle Cells Cancelled Target Cells Cancelled Tear Drop Cells Cancelled Ovalocytes Cancelled Stomatocytes Cancelled Helmet Cells Cancelled Foy-Jenera Bodies Cancelled [place] Cells Cancelled Acanthocytes (Spur) Cancelled Rouleaux Cancelled Schistocytes Cancelled pCO2 (35-45) mm/Hg pO2 (80-100) mm/Hg HCO3 (21-28) mmol/L ABG pH (7.35-7.45) ABG Total CO2 (22-28) mmol/L ABG O2 Saturation (95-98) % ABG Base Excess (-2.0-3.0) mmol/L Michael Test ABG Potassium (3.6-5.2) mmol/L A-a O2 Difference mm/Hg Glucose (65-105) mg/dL Lactate (0.7-2.1) mmol/L Vent Mode Mechanical Rate FiO2 % Tidal Volume PEEP Sodium (132-148) mmol/l Potassium (3.6-5.0) MMOL/L Chloride (98-107) mmol/L Carbon Dioxide (22-30) mmol/L Anion Gap (10-20) BUN (7-17) mg/dl Creatinine (0.7-1.2) mg/dl Est GFR ( Amer) Est GFR (Non-Af Amer) POC Glucose (mg/dL) 225 H 310 H (65-110) mg/dL Random Glucose (65-105) mg/dL Calcium (8.4-10.2) mg/dL Arterial Blood Potassium (3.6-5.2) mmol/L 10/19/17 Range/Units 11:08 WBC (4.8-10.8) K/uL RBC (3.80-5.20) Mil/uL Hgb (12.0-16.0) g/dL Hct (34.0-47.0) % MCV (81.0-99.0) fl MCH (27.0-31.0) pg MCHC (33.0-37.0) g/dL RDW (11.5-14.5) % Plt Count (130-400) K/uL MPV (7.2-11.7) fl Neut % (Auto) (50.0-75.0) % Lymph % (Auto) (20.0-40.0) % [place] % (Auto) (0.0-10.0) % Eos % (Auto) (0.0-4.0) % Baso % (Auto) (0.0-2.0) % Neut # (Auto) (1.8-7.0) K/uL Lymph # (Auto) (1.0-4.3) K/uL [place] # (Auto) (0.0-0.8) K/uL Eos # (Auto) (0.0-0.7) K/uL Baso # (Auto) (0.0-0.2) K/uL Total Counted Neutrophils % (Manual) Band Neutrophils % Lymphocytes % (Manual) Reactive Lymphs % Monocytes % (Manual) Eosinophils % (Manual) Basophils % (Manual) Metamyelocytes % Myelocytes % Promyelocytes % Blast Cells % Plasma Cell % (Manual) Nucleated RBC % Hypersegmented Polys Smudge Cells Toxic Granulation Dohle Bodies Erlinda Rods Platelet Estimate Plt Clumps, EDTA Large Platelets Giant Platelets RBC Morphology Polychromasia Hypochromasia (manual) Poikilocytosis (manual Basophilic Stippling Anisocytosis (manual) Microcytosis (manual) Macrocytosis (manual) Spherocytes Sickle Cells Target Cells Tear Drop Cells Ovalocytes Stomatocytes Helmet Cells Foy-Jenera Bodies [place] Cells Acanthocytes (Spur) Rouleaux Schistocytes pCO2 (35-45) mm/Hg pO2 (80-100) mm/Hg HCO3 (21-28) mmol/L ABG pH (7.35-7.45) ABG Total CO2 (22-28) mmol/L ABG O2 Saturation (95-98) % ABG Base Excess (-2.0-3.0) mmol/L Michael Test ABG Potassium (3.6-5.2) mmol/L A-a O2 Difference mm/Hg Glucose (65-105) mg/dL Lactate (0.7-2.1) mmol/L Vent Mode Mechanical Rate FiO2 % Tidal Volume PEEP Sodium (132-148) mmol/l Potassium (3.6-5.0) MMOL/L Chloride (98-107) mmol/L Carbon Dioxide (22-30) mmol/L Anion Gap (10-20) BUN (7-17) mg/dl Creatinine (0.7-1.2) mg/dl Est GFR ( Amer) Est GFR (Non-Af Amer) POC Glucose (mg/dL) 166 H (65-110) mg/dL Random Glucose (65-105) mg/dL Calcium (8.4-10.2) mg/dL Arterial Blood Potassium (3.6-5.2) mmol/L Laboratory Results - last 24 hr 10/19/17 10/19/17 10/19/17 11:08 16:16 21:20 WBC RBC Hgb Hct MCV MCH MCHC RDW Plt Count MPV Neut % (Auto) Lymph % (Auto) [place] % (Auto) Eos % (Auto) Baso % (Auto) Neut # (Auto) Lymph # (Auto) [place] # (Auto) Eos # (Auto) Baso # (Auto) Total Counted Neutrophils % (Manual) Band Neutrophils % Lymphocytes % (Manual) Reactive Lymphs % Monocytes % (Manual) Eosinophils % (Manual) Basophils % (Manual) Metamyelocytes % Myelocytes % Promyelocytes % Blast Cells % Plasma Cell % (Manual) Nucleated RBC % Hypersegmented Polys Smudge Cells Toxic Granulation Dohle Bodies Erlinda Rods Platelet Estimate Plt Clumps, EDTA Large Platelets Giant Platelets RBC Morphology Polychromasia Hypochromasia (manual) Poikilocytosis (manual Basophilic Stippling Anisocytosis (manual) Microcytosis (manual) Macrocytosis (manual) Spherocytes Sickle Cells Target Cells Tear Drop Cells Ovalocytes Stomatocytes Helmet Cells Foy-Jenera Bodies [place] Cells Acanthocytes (Spur) Rouleaux Schistocytes pCO2 pO2 HCO3 ABG pH ABG Total CO2 ABG O2 Saturation ABG Base Excess Michael Test ABG Potassium A-a O2 Difference Glucose Lactate Vent Mode Mechanical Rate FiO2 Tidal Volume PEEP Sodium Potassium Chloride Carbon Dioxide Anion Gap BUN Creatinine Est GFR ( Amer) Est GFR (Non-Af Amer) POC Glucose (mg/dL) 166 H 310 H 225 H Random Glucose Calcium Arterial Blood Potassium 10/20/17 10/20/17 10/20/17 04:20 04:20 04:29 WBC 15.1 H RBC 2.64 L Hgb 8.1 L Hct 24.6 L MCV 93.2 MCH 30.7 MCHC 33.0 RDW 13.7 Plt Count 76 L D MPV 9.4 Neut % (Auto) 94.5 H Lymph % (Auto) 4.1 L [place] % (Auto) 1.3 Eos % (Auto) 0.0 Baso % (Auto) 0.1 Neut # (Auto) 14.3 H Lymph # (Auto) 0.6 L [place] # (Auto) 0.2 Eos # (Auto) 0.0 Baso # (Auto) 0.0 Total Counted Cancelled Neutrophils % (Manual) Cancelled Band Neutrophils % Cancelled Lymphocytes % (Manual) Cancelled Reactive Lymphs % Cancelled Monocytes % (Manual) Cancelled Eosinophils % (Manual) Cancelled Basophils % (Manual) Cancelled Metamyelocytes % Cancelled Myelocytes % Cancelled Promyelocytes % Cancelled Blast Cells % Cancelled Plasma Cell % (Manual) Cancelled Nucleated RBC % Cancelled Hypersegmented Polys Cancelled Smudge Cells Cancelled Toxic Granulation Cancelled Dohle Bodies Cancelled Erlinda Rods Cancelled Platelet Estimate Cancelled Plt Clumps, EDTA Cancelled Large Platelets Cancelled Giant Platelets Cancelled RBC Morphology Cancelled Polychromasia Cancelled Hypochromasia (manual) Cancelled Poikilocytosis (manual Cancelled Basophilic Stippling Cancelled Anisocytosis (manual) Cancelled Microcytosis (manual) Cancelled Macrocytosis (manual) Cancelled Spherocytes Cancelled Sickle Cells Cancelled Target Cells Cancelled Tear Drop Cells Cancelled Ovalocytes Cancelled Stomatocytes Cancelled Helmet Cells Cancelled Foy-Jenera Bodies Cancelled [place] Cells Cancelled Acanthocytes (Spur) Cancelled Rouleaux Cancelled Schistocytes Cancelled pCO2 37 pO2 165 H HCO3 20.9 L ABG pH 7.34 L ABG Total CO2 21.1 L ABG O2 Saturation 99.4 H ABG Base Excess -5.2 L Michael Test Yes ABG Potassium 4.4 A-a O2 Difference 288.0 Glucose 201 H Lactate 2.4 H Vent Mode A/c Mechanical Rate 14 FiO2 70.0 Tidal Volume 400 PEEP 5 Sodium 136 133.0 Potassium 4.3 Chloride 103 102.0 Carbon Dioxide 22 Anion Gap 15 BUN 60 H Creatinine 2.6 H Est GFR ( Amer) 21 Est GFR (Non-Af Amer) 17 POC Glucose (mg/dL) Random Glucose 185 H Calcium 7.4 L Arterial Blood Potassium 4.4 10/20/17 05:37 WBC RBC Hgb Hct MCV MCH MCHC RDW Plt Count MPV Neut % (Auto) Lymph % (Auto) [place] % (Auto) Eos % (Auto) Baso % (Auto) Neut # (Auto) Lymph # (Auto) [place] # (Auto) Eos # (Auto) Baso # (Auto) Total Counted Neutrophils % (Manual) Band Neutrophils % Lymphocytes % (Manual) Reactive Lymphs % Monocytes % (Manual) Eosinophils % (Manual) Basophils % (Manual) Metamyelocytes % Myelocytes % Promyelocytes % Blast Cells % Plasma Cell % (Manual) Nucleated RBC % Hypersegmented Polys Smudge Cells Toxic Granulation Dohle Bodies Erlinda Rods Platelet Estimate Plt Clumps, EDTA Large Platelets Giant Platelets RBC Morphology Polychromasia Hypochromasia (manual) Poikilocytosis (manual Basophilic Stippling Anisocytosis (manual) Microcytosis (manual) Macrocytosis (manual) Spherocytes Sickle Cells Target Cells Tear Drop Cells Ovalocytes Stomatocytes Helmet Cells Foy-Jenera Bodies [place] Cells Acanthocytes (Spur) Rouleaux Schistocytes pCO2 pO2 HCO3 ABG pH ABG Total CO2 ABG O2 Saturation ABG Base Excess Michael Test ABG Potassium A-a O2 Difference Glucose Lactate Vent Mode Mechanical Rate FiO2 Tidal Volume PEEP Sodium Potassium Chloride Carbon Dioxide Anion Gap BUN Creatinine Est GFR ( Amer) Est GFR (Non-Af Amer) POC Glucose (mg/dL) 197 H Random Glucose Calcium Arterial Blood Potassium Fingerstick Blood Sugar Results: 197 Review of Systems - Review of Systems Review of Systems: unable to assess because intubation and sedation. Critical Care Progress Note - Nutrition Nutrition: Nutrition Category Date Time Status NPO Diet [DIET] Diets 10/12/17 Breakfast Active Assessment/Plan - Assessment and Plan (Free Text) Plan: Sepsis -SIRS plus Pneumonia -tachypnea, WBC : 15/still trending down, afebrile -CBC: WBC: 15, lactate: 2.4 still trending down -repeated on 10/15/17 Blood CX showed no growth after 4 days -Linezolid 600 mg IVPB Q12 day # 9 ( started on oct 11 PM). Will discuss with ID specialist in the case possible DC -Azithromycin 500 mg IVPB daily day # 9( started on oct 12) -Meropenen 500 mg Q12 day #5 ( started on 10/15/17) -Diflucan 200 mg IV daily #5 9 started on 10/15/17) -Procalcitonin on 10/15/17 was 1.65/mild elevated -antibiotics and antimycotic as per ID -ID on consult, f/u recs -Pulmonology on consult, f/u recs. Acute hypoxemic respiratory failure secondary Pneumonia in superimposed Influenza infection -s/p Bronchoscopy at bedside by Pulmonology -s/p post-endotracheal tube placement on 10/12/17 and Mechanical ventilation -PRVC AC 14 TV 400 FiO2 60 % PEEP 5 -Afebrile, no tachycardic -c/w antibiotics and antimycotic as per ID -Linezolid 600 mg IVPB Q12 day # 9( started on oct 11 PM) -Azithromycin 500 mg IVPB daily day # 9( started on oct 12) -Meropenen 500 mg Q12 day #5 ( started on 10/15/17) -Diflucan 200 mg IV daily #5 ( started on 10/15/17) -cultures from bronchoscopy specimen so far negative, pending final mycobacterial culture -c/w chest PT and suctioning -c/w nebulizer treatment -f/u CBC, ABG, CXR in AM -CXR today showed no significant changed from prior x ray, pending official report -ID on consult, f/u recs -Pulmonology on consult, f/u recs. Acute Renal Failure -S/p Dialysis on 10/20/17, completed at 5 am -oliguric/125 ml/12 hours -likely 2/2 sepsis and hypotension -BUN/Cr improving today -today BUN/Cr 60/2.6 -possible Dialysis tomorrow as per Nephro -yesterday no responding to diuretic therapy -echo done on 10/12/17 reported as normal LV function, normal EF: 60-65 % -f/u BUN/Cr -Nephrology on consult, recs are appreciated Anemia -acute on chronic -could be multifactorial -H/H: 8.1/24.6 -will consider transfusion on PRBC as needed -f/u H/H Hyperkalemia -resolved after dialysis -likely 2/2 NAHOMI -K+ 4.3 -f/u potassium Hypertension -SBP in low levels. -held BP meds -started on Levophed -DC Dopamine Diabetes mellitus type 2 -c/w glycemic control Diet -Glucerna by OG tube/ continuous @ 40 cc/hr Prophylaxis -stress ulcer prophylaxis with protonix 40 mg IV,frequency was increased to Q12 -DVT prophylaxis SCDs for now. Heparin SC was held last evening by responder hospitalist because episode of bloody secretions. Platelets decreased from 144 to 76 today. -pressure ulcers precautions - Date & Time Date: 10/20/17 Time: 08:00 <Bryant Faria - Last Filed: 10/20/17 17:59> CCU Subjective - Physician Review Subjective (Free Text): Attestation: Patient seen and examined at the bedside with Resident Dr. Woody Mascorro; and I agree with her outline of plans and management documented above as discussed on AM rounds reflecting my review of all applicable clinical data, and participation in the care of the patient throughout the day in ICU; October. Time spent with this patient did not overlap with any other provider's medical or critical care time. Additionally the code selected for the services rendered in this note includes the time spent: talking to the patients family, associated physicians and reviewing hospital data/results not listed here which extended to a total of 45 minutes. Critical Care Progress Note - Ventilator Checklist Head of Bed 30 Degrees: Yes Daily Sedation Vacation: Yes Daily Assessment of Readiness to Wean: Yes Daily Spontaneous Breathing Trial: Yes PUD Prophalyxis: Yes DVT Prophylaxis: Yes Oral Care with Chlorhexidine Gluconate {CHG}: Yes - Vent Settings MODE:: ASSIST CONTROL TIDAL VOLUME:: 400 RESP RATE:: 14 FIO2:: 60 PEEP:: 5 - Extremities/Vascular Does the Patient have a Central Venous Catheter?: Yes Insertion Site: Femoral Vein Does the Patient need a Central Venous Catheter?: Yes Does the Patient have a Jamil Catheter?: Yes Does the Patient need a Jamil Catheter?: Yes Catheter Insertion Criteria: Need for accurate measurement of output in critically ill patient - Restraints Justification for Restraints: High risk for self extubation, High risk for removing IV access - Prophylaxis GI Prophylaxis GI: PPI - Prophylaxis DVT Prophylaxis DVT: SCDs - Nutrition Nutrition: Nutrition Category Date Time Status NPO Diet [DIET] Diets 10/12/17 Breakfast Active
[2017-10-20] MEDS: Azithromycin 500 MG in Sodium Chloride 0.9% 250 ML IVPB SCH (10:31)
[2017-10-20] MEDS: Propofol 10 mg/ml 1,000 MG/100 ML VIAL IV SCH (12:22)
[2017-10-20 12:50] LABS: HEPATITIS B SURFACE AG Negative (NEGATIVE)
[2017-10-20 12:55] LABS: HEPATITIS B CORE AB NEGATIVE (NEGATIVE)
--- NOTE | 2017-10-20 13:06 | PN ---
DATE: SUBJECTIVE: The patient is still on ventilator. She was initiated on hemodialysis yesterday. She is on Levophed 2.5 mcg per minute. PHYSICAL EXAMINATION: VITAL SIGNS: Blood pressure 110/57, heart rate 90, temperature 98.6, and respirations 18. HEENT: Pale conjunctivae. CHEST: Bilateral coarse crepitations. HEART: S1 and S2 regular. EXTREMITIES: Trace leg edema. LABORATORY DATA: SMA-7; sodium 136, potassium 4.2, chloride 103, CO2 22, glucose 185, BUN 60, and creatinine 2.6. Yesterday, BUN and creatinine were 75 and 3.2 respectively. Today's, hemoglobin and hematocrit 8.1 and 24.6, white count 16.1, and platelet count 76,000, which has significantly dropped compared to yesterday. Today's chest x-ray revealed improving bilateral alveolar infiltrate, which is currently diffuse involving both lungs entirely. ASSESSMENT: 1. Respiratory failure. 2. Bilateral pneumonia. 3. Borderline troponin elevation. 4. Acute renal insufficiency, requiring hemodialysis. 5. Hypertension, requiring low dose Levophed. RECOMMENDATIONS: Case was discussed with napping machine operator. Continue current supportive measures including ventilator support and low-dose Levophed. Continue IV meropenem 500 mg q.12 hours, IV Zyvox 600 mg q.12 hours, Lipitor 20 mg once a day, IV Zithromax 500 mg daily, Solu-Medrol 40 mg intravenously q.6 hours, and Synthroid 50 mcg daily. Aspirin has been discontinued. Follow up platelets tomorrow if the patient is currently off subcutaneous heparin, which was discontinued today. Mitchell Hollis MD
--- NOTE | 2017-10-20 13:22 | CP.PCM.PN ---
Subjective - Date & Time of Evaluation Date of Evaluation: 10/20/17 Time of Evaluation: 08:00 - Subjective Subjective: AFEBRILE INTUBATED SEDATED FAMILY AT THE BEDSIDE NO NEW OPOSITIVE CULTURES Objective - Vital Signs/Intake and Output Vital Signs (last 24 hours): Temp Pulse Resp BP Pulse Ox 98.2 F 88 49 H 100/34 L 90 L 10/20/17 12:00 10/20/17 12:00 10/20/17 12:00 10/20/17 12:00 10/20/17 12:00 Intake and Output: 10/20/17 10/20/17 06:59 18:59 Intake Total 171 800 Output Total 1375 0 Balance -1204 800 - Medications Medications: Current Medications Acetaminophen (Tylenol 325mg Tab) 975 mg PO ONCE PRN PRN Reason: Fever >100.4 F Atorvastatin Calcium (Lipitor) 20 mg PO DAILY [facility] Last Admin: 10/20/17 08:21 Dose: 20 mg Haloperidol Lactate (Haldol) 1 mg IVP Q6 PRN PRN Reason: Agitation Meropenem 500 mg/ Sodium (Chloride) 100 mls @ 100 mls/hr IVPB Q12 [place] PRN Reason: Protocol Last Admin: 10/20/17 08:21 Dose: 100 mls/hr Fluconazole (Diflucan Iv 200 Mg/100 Ml Ns) 100 mls @ 100 mls/hr IVPB DAILY [facility] Last Admin: 10/20/17 08:21 Dose: 100 mls/hr Linezolid (Zyvox 600mg/300ml D5w) 600 mg in 300 mls @ 300 mls/hr IVPB Q12 [place] PRN Reason: Protocol Last Admin: 10/20/17 08:23 Dose: 300 mls/hr Azithromycin 500 mg/ Sodium (Chloride) 250 mls @ 250 mls/hr IVPB DAILY [facility] PRN Reason: Protocol Last Admin: 10/20/17 10:31 Dose: 250 mls/hr Norepinephrine Bitartrate 16 (mg/ Dextrose) 266 mls @ 2.49 mls/hr IV .Q24H ONE ; 2.5 MCG/MIN PRN Reason: Protocol Stop: 10/20/17 19:24 Last Admin: 10/19/17 22:30 Dose: 2.49 mls/hr Insulin Human Lispro (Humalog) 0 units SC ACHS [facility] PRN Reason: Protocol Last Admin: 10/20/17 12:10 Dose: 2 units Ipratropium [place] (Atrovent) 0.5 mg IH RQ6 [facility] Last Admin: 10/20/17 08:48 Dose: 0.5 mg Levalbuterol HCl (Xopenex) 0.63 mg INH RQ8 [facility] Last Admin: 10/20/17 08:48 Dose: 0.63 mg Levothyroxine Sodium (Synthroid) 50 mcg PO DAILY@0630 [facility] Last Admin: 10/20/17 05:44 Dose: 50 mcg Methylprednisolone (Solu-Medrol) 40 mg IVP Q6H [facility] Last Admin: 10/20/17 09:00 Dose: 40 mg Metoclopramide HCl (Reglan) 10 mg IVP Q8 [facility] Last Admin: 10/20/17 08:22 Dose: 10 mg Pantoprazole Sodium (Protonix Inj) 40 mg IVP Q12H [facility] Last Admin: 10/20/17 09:00 Dose: 40 mg - Labs Labs: 10/20/17 04:20 10/20/17 04:20 PT 20.6 Seconds (9.8-13.1) H 10/15/17 04:45 INR 1.8 (0.9-1.2) H 10/15/17 04:45 APTT 33.2 Seconds (25.6-37.1) 10/13/17 04:15 - Constitutional Appears: Non-toxic, Cachectic, Chronically Ill - Head Exam Head Exam: NORMOCEPHALIC - Eye Exam Eye Exam: PERRL - ENT Exam ENT Exam: Mucous Membranes Dry - Neck Exam Neck Exam: absent: Lymphadenopathy - Respiratory Exam Respiratory Exam: Decreased Breath Sounds - Cardiovascular Exam Cardiovascular Exam: REGULAR RHYTHM - GI/Abdominal Exam GI & Abdominal Exam: Distended, Soft - Rectal Exam Rectal Exam: Deferred - Exam Exam: NORMAL INSPECTION - Extremities Exam Extremities Exam: absent: Pedal Edema - Back Exam Back Exam: absent: CVA tenderness (L), CVA tenderness (R) - Neurological Exam Neurological Exam: Altered - Psychiatric Exam Psychiatric exam: Depressed Assessment and Plan (1) Influenza Status: Acute (2) Pneumonia Status: Acute (3) Sepsis Status: Acute (4) UTI (urinary tract infection) Status: Acute - Assessment and Plan (Free Text) Assessment: CXR LITTLE CHANGED NO NEW POSITIVE CULTURES CONT IV ANTIBIOTICS
--- NOTE | 2017-10-20 14:25 | CP.PCM.PN ---
Subjective - Date & Time of Evaluation Date of Evaluation: 10/20/17 Time of Evaluation: 10:40 - Subjective Subjective: F/U Respiratory Failure intubated , sedated Objective - Vital Signs/Intake and Output Vital Signs (last 24 hours): Temp Pulse Resp BP Pulse Ox 98.2 F 88 18 99/45 L 99 10/20/17 12:00 10/20/17 14:00 10/20/17 14:00 10/20/17 14:00 10/20/17 14:00 Intake and Output: 10/20/17 10/20/17 06:59 18:59 Intake Total 171 1100 Output Total 1375 5 Balance -1204 1095 - Medications Medications: Current Medications Acetaminophen (Tylenol 325mg Tab) 975 mg PO ONCE PRN PRN Reason: Fever >100.4 F Atorvastatin Calcium (Lipitor) 20 mg PO DAILY [facility] Last Admin: 10/20/17 08:21 Dose: 20 mg Haloperidol Lactate (Haldol) 1 mg IVP Q6 PRN PRN Reason: Agitation Meropenem 500 mg/ Sodium (Chloride) 100 mls @ 100 mls/hr IVPB Q12 [place] PRN Reason: Protocol Last Admin: 10/20/17 08:21 Dose: 100 mls/hr Fluconazole (Diflucan Iv 200 Mg/100 Ml Ns) 100 mls @ 100 mls/hr IVPB DAILY [facility] Last Admin: 10/20/17 08:21 Dose: 100 mls/hr Linezolid (Zyvox 600mg/300ml D5w) 600 mg in 300 mls @ 300 mls/hr IVPB Q12 [place] PRN Reason: Protocol Last Admin: 10/20/17 08:23 Dose: 300 mls/hr Azithromycin 500 mg/ Sodium (Chloride) 250 mls @ 250 mls/hr IVPB DAILY [facility] PRN Reason: Protocol Last Admin: 10/20/17 10:31 Dose: 250 mls/hr Norepinephrine Bitartrate 16 (mg/ Dextrose) 266 mls @ 2.49 mls/hr IV .Q24H ONE ; 2.5 MCG/MIN PRN Reason: Protocol Stop: 10/20/17 19:24 Last Admin: 10/19/17 22:30 Dose: 2.49 mls/hr Insulin Human Lispro (Humalog) 0 units SC ACHS [facility] PRN Reason: Protocol Last Admin: 10/20/17 12:10 Dose: 2 units Ipratropium [place] (Atrovent) 0.5 mg IH RQ6 [facility] Last Admin: 10/20/17 08:48 Dose: 0.5 mg Levalbuterol HCl (Xopenex) 0.63 mg INH RQ8 [facility] Last Admin: 10/20/17 08:48 Dose: 0.63 mg Levothyroxine Sodium (Synthroid) 50 mcg PO DAILY@0630 [facility] Last Admin: 10/20/17 05:44 Dose: 50 mcg Methylprednisolone (Solu-Medrol) 40 mg IVP Q6H [facility] Last Admin: 10/20/17 09:00 Dose: 40 mg Metoclopramide HCl (Reglan) 10 mg IVP Q8 [facility] Last Admin: 10/20/17 08:22 Dose: 10 mg Pantoprazole Sodium (Protonix Inj) 40 mg IVP Q12H [facility] Last Admin: 10/20/17 09:00 Dose: 40 mg - Labs Labs: 10/20/17 04:20 10/20/17 04:20 PT 20.6 Seconds (9.8-13.1) H 10/15/17 04:45 INR 1.8 (0.9-1.2) H 10/15/17 04:45 APTT 33.2 Seconds (25.6-37.1) 10/13/17 04:15 - Constitutional Appears: Chronically Ill - Head Exam Head Exam: NORMAL INSPECTION - Eye Exam Eye Exam: PERRL - ENT Exam Additional comments: Intubated - Neck Exam Neck Exam: Normal Inspection - Respiratory Exam Respiratory Exam: Decreased Breath Sounds (at bases) - Cardiovascular Exam Cardiovascular Exam: REGULAR RHYTHM - GI/Abdominal Exam GI & Abdominal Exam: Soft, Normal Bowel Sounds - Extremities Exam Extremities Exam: Pedal Edema - Back Exam Back Exam: NORMAL INSPECTION - Neurological Exam Additional comments: Sedated, intubated - Psychiatric Exam Additional comments: Sedated - Skin Skin Exam: Warm Assessment and Plan (1) Pneumonia Status: Acute (2) Influenza A Status: Acute (3) Respiratory failure Status: Acute (4) Sepsis Status: Acute (5) Anemia Status: Acute (6) NAHOMI (acute kidney injury) Status: Acute - Assessment and Plan (Free Text) Plan: continue ventilatory support , FIO2 to be decreased to 60, had dialysis earlier on Zithromax , Diflucan , Merren , Vanco , Solu Medrol , Norepinephrine , Xopenex , Atrovent , all C-S negative , Tracheostomy discussed with Patient 's family at bedside ICU Time: 40 min.
--- NOTE | 2017-10-20 15:08 | RAD ---
PROCEDURE: CHEST RADIOGRAPH, 1 VIEW HISTORY: intubation on mec ventilation COMPARISON: Multiple serial examinations preceding the most recent study: October 19, 2017. FINDINGS: LUNGS: Stable multifocal infiltrates. PLEURA: No pneumothorax or pleural fluid seen. CARDIOVASCULAR: No significant interval change compared to the prior examination(s). OSSEOUS STRUCTURES: No significant abnormalities. VISUALIZED UPPER ABDOMEN: Normal. OTHER FINDINGS: Stable position of endotracheal tube. IMPRESSION: Stable infiltrates/pulmonary edema. No new, acute or interval changes identified.
[2017-10-20 17:53] LABS: HEMOGLOBIN 6.7 g/dL (12.0-16.0); MEAN CELL VOLUME 93.5 fl (81.0-99.0); MEAN CORPUSCULAR HEMOGLOBIN 30.2 pg (27.0-31.0); MEAN CORPUSCULAR HGB CONC 32.3 g/dL (33.0-37.0); RBC 2.23 Mil/uL (3.80-5.20); RED CELL DISTRIBUTION WIDTH 13.8 % (11.5-14.5); WHITE BLOOD COUNT 10.2 K/uL (4.8-10.8)
[2017-10-20 18:25] LABS: INR 1.8 (0.9-1.2); PARTIAL THROMBOPLASTIN TIME 31.1 Seconds (25.6-37.1); PROTHROMBIN TIME 20.1 Seconds (9.8-13.1)
[2017-10-20] MEDS ORDERED: Desmopressin 4 mcg/ml Inj (10 ml) IV ONE (19:16)
[2017-10-20] MEDS ORDERED: Desmopressin 20 MCG in Sodium Chloride 0.9% 50 ML IV ONE (19:45)
--- NOTE | 2017-10-20 22:08 | CP.PCM.PN ---
Subjective - Date & Time of Evaluation Date of Evaluation: 10/19/17 Time of Evaluation: 11:35 Objective - Vital Signs/Intake and Output Vital Signs (last 24 hours): Temp Pulse Resp BP Pulse Ox 98.0 F 94 H 16 117/38 L 98 10/20/17 20:00 10/20/17 20:00 10/20/17 20:00 10/20/17 20:00 10/20/17 19:40 Intake and Output: 10/20/17 10/21/17 18:59 06:59 Intake Total 1200 58 Output Total 30 Balance 1170 58 - Medications Medications: Current Medications Acetaminophen (Tylenol 325mg Tab) 975 mg PO ONCE PRN PRN Reason: Fever >100.4 F Atorvastatin Calcium (Lipitor) 20 mg PO DAILY [facility] Last Admin: 10/20/17 08:21 Dose: 20 mg Haloperidol Lactate (Haldol) 1 mg IVP Q6 PRN PRN Reason: Agitation Meropenem 500 mg/ Sodium (Chloride) 100 mls @ 100 mls/hr IVPB Q12 [place] PRN Reason: Protocol Last Admin: 10/20/17 21:18 Dose: 100 mls/hr Fluconazole (Diflucan Iv 200 Mg/100 Ml Ns) 100 mls @ 100 mls/hr IVPB DAILY [facility] Last Admin: 10/20/17 08:21 Dose: 100 mls/hr Linezolid (Zyvox 600mg/300ml D5w) 600 mg in 300 mls @ 300 mls/hr IVPB Q12 [place] PRN Reason: Protocol Last Admin: 10/20/17 21:53 Dose: 300 mls/hr Azithromycin 500 mg/ Sodium (Chloride) 250 mls @ 250 mls/hr IVPB DAILY [place] PRN Reason: Protocol Last Admin: 10/20/17 10:31 Dose: 250 mls/hr Insulin Human Lispro (Humalog) 0 units SC ACHS [place] PRN Reason: Protocol Last Admin: 10/20/17 16:08 Dose: 2 units Ipratropium [place] (Atrovent) 0.5 mg IH RQ6 [place] Last Admin: 10/20/17 19:26 Dose: 0.5 mg Levalbuterol HCl (Xopenex) 0.63 mg INH RQ8 [facility] Last Admin: 10/20/17 19:25 Dose: 0.63 mg Levothyroxine Sodium (Synthroid) 50 mcg PO DAILY@0630 [facility] Last Admin: 10/20/17 05:44 Dose: 50 mcg Methylprednisolone (Solu-Medrol) 40 mg IVP Q6H [facility] Last Admin: 10/20/17 21:20 Dose: 40 mg Metoclopramide HCl (Reglan) 10 mg IVP Q8 [facility] Last Admin: 10/20/17 16:08 Dose: 10 mg Pantoprazole Sodium (Protonix Inj) 40 mg IVP Q12H [facility] Last Admin: 10/20/17 21:21 Dose: 40 mg - Labs Labs: 10/20/17 17:30 10/20/17 04:20 PT 20.1 Seconds (9.8-13.1) H 10/20/17 17:30 INR 1.8 (0.9-1.2) H 10/20/17 17:30 APTT 31.1 Seconds (25.6-37.1) 10/20/17 17:30
--- NOTE | 2017-10-20 22:09 | CP.PCM.PN ---
Subjective - Date & Time of Evaluation Date of Evaluation: 10/20/17 Time of Evaluation: 10:00 Objective - Vital Signs/Intake and Output Vital Signs (last 24 hours): Temp Pulse Resp BP Pulse Ox 98.0 F 94 H 16 117/38 L 98 10/20/17 20:00 10/20/17 20:00 10/20/17 20:00 10/20/17 20:00 10/20/17 19:40 Intake and Output: 10/20/17 10/21/17 18:59 06:59 Intake Total 1200 58 Output Total 30 Balance 1170 58 - Medications Medications: Current Medications Acetaminophen (Tylenol 325mg Tab) 975 mg PO ONCE PRN PRN Reason: Fever >100.4 F Atorvastatin Calcium (Lipitor) 20 mg PO DAILY [facility] Last Admin: 10/20/17 08:21 Dose: 20 mg Haloperidol Lactate (Haldol) 1 mg IVP Q6 PRN PRN Reason: Agitation Meropenem 500 mg/ Sodium (Chloride) 100 mls @ 100 mls/hr IVPB Q12 [place] PRN Reason: Protocol Last Admin: 10/20/17 21:18 Dose: 100 mls/hr Fluconazole (Diflucan Iv 200 Mg/100 Ml Ns) 100 mls @ 100 mls/hr IVPB DAILY [facility] Last Admin: 10/20/17 08:21 Dose: 100 mls/hr Linezolid (Zyvox 600mg/300ml D5w) 600 mg in 300 mls @ 300 mls/hr IVPB Q12 [place] PRN Reason: Protocol Last Admin: 10/20/17 21:53 Dose: 300 mls/hr Azithromycin 500 mg/ Sodium (Chloride) 250 mls @ 250 mls/hr IVPB DAILY [place] PRN Reason: Protocol Last Admin: 10/20/17 10:31 Dose: 250 mls/hr Insulin Human Lispro (Humalog) 0 units SC ACHS [place] PRN Reason: Protocol Last Admin: 10/20/17 16:08 Dose: 2 units Ipratropium [place] (Atrovent) 0.5 mg IH RQ6 [place] Last Admin: 10/20/17 19:26 Dose: 0.5 mg Levalbuterol HCl (Xopenex) 0.63 mg INH RQ8 [facility] Last Admin: 10/20/17 19:25 Dose: 0.63 mg Levothyroxine Sodium (Synthroid) 50 mcg PO DAILY@0630 [facility] Last Admin: 10/20/17 05:44 Dose: 50 mcg Methylprednisolone (Solu-Medrol) 40 mg IVP Q6H [facility] Last Admin: 10/20/17 21:20 Dose: 40 mg Metoclopramide HCl (Reglan) 10 mg IVP Q8 [facility] Last Admin: 10/20/17 16:08 Dose: 10 mg Pantoprazole Sodium (Protonix Inj) 40 mg IVP Q12H [facility] Last Admin: 10/20/17 21:21 Dose: 40 mg - Labs Labs: 10/20/17 17:30 10/20/17 04:20 PT 20.1 Seconds (9.8-13.1) H 10/20/17 17:30 INR 1.8 (0.9-1.2) H 10/20/17 17:30 APTT 31.1 Seconds (25.6-37.1) 10/20/17 17:30
[2017-10-21] MEDS: Ipratropium 0.02% Inhal Soln (0.5 mg/2.5 ml) UD IH SCH ×5 (00:11→23:35)
[2017-10-21] MEDS: Levalbuterol 0.63 MG/3 ML Inhal Soln UD INH SCH ×4 (00:11→23:37)
[2017-10-21] MEDS: MethylPREDNISolone 40 mg Vial IVP SCH (04:00)
[2017-10-21 05:24] LABS: ABG ALLEN TEST YES; ARTERIAL BLOOD GAS O2 SAT 98.9 % (95-98); ARTERIAL BLOOD GAS PCO2 35 mm/Hg (35-45); ARTERIAL BLOOD GAS PH 7.29 (7.35-7.45); ARTERIAL BLOOD GAS PO2 119 mm/Hg (80-100); ARTERIAL BLOOD GAS TCO2 17.9 mmol/L (22-28)
[2017-10-21 05:40] LABS: HEMOGLOBIN 9.3 g/dL (12.0-16.0); LYMPH # 0.5 K/uL (1.0-4.3); MEAN CELL VOLUME 89.1 fl (81.0-99.0); MEAN CORPUSCULAR HEMOGLOBIN 29.2 pg (27.0-31.0); MEAN CORPUSCULAR HGB CONC 32.8 g/dL (33.0-37.0); MEAN PLATELET VOLUME 9.2 fl (7.2-11.7); MONO # 0.1 K/uL (0.0-0.8); MONO % 1.5 % (0.0-10.0); NEUT # 8.2 K/uL (1.8-7.0); NEUT % 92.5 % (50.0-75.0); NRBC % 0.5 % (0.0-0.0); PLATELET COUNT 75 K/uL (130-400); RBC 3.18 Mil/uL (3.80-5.20); RED CELL DISTRIBUTION WIDTH 15.7 % (11.5-14.5); WHITE BLOOD COUNT 8.9 K/uL (4.8-10.8)
[2017-10-21 05:53] LABS: CALCIUM 7.4 mg/dL (8.4-10.2)
[2017-10-21 05:54] LABS: INR 1.5 (0.9-1.2); PROTHROMBIN TIME 16.2 Seconds (9.8-13.1)
[2017-10-21] MEDS: Levothyroxine 50 MCG TAB PO SCH (06:20)
[2017-10-21] MEDS: Insulin Lispro (humaLOG) 100 Units/ml Inj SC SCH ×5 (06:30→21:16)
[2017-10-21] MEDS: Fluconazole IV 200mg/100 ml NS 100 ML IVPB SCH (09:23)
[2017-10-21] MEDS: Meropenem 500 MG in Sodium Chloride 0.9% 100 ML IVPB SCH ×2 (09:26→20:09)
--- NOTE | 2017-10-21 09:39 | CP.PCM.PN ---
Subjective - Date & Time of Evaluation Date of Evaluation: 10/21/17 Time of Evaluation: 09:38 - Subjective Subjective: Patient remained intubated on the respirator. Vital signs blood pressure improving without vasopressor as of this morning Urine output remained poor with positive balance 1503 mL Objective - Vital Signs/Intake and Output Vital Signs (last 24 hours): Temp Pulse Resp BP Pulse Ox 98.1 F 88 47 H 129/59 L 97 10/21/17 08:00 10/21/17 08:00 10/21/17 08:00 10/21/17 08:00 10/21/17 08:00 Intake and Output: 10/21/17 10/21/17 06:59 18:59 Intake Total 2073 10 Output Total 100 0 Balance 1973 10 - Medications Medications: Current Medications Acetaminophen (Tylenol 325mg Tab) 975 mg PO ONCE PRN PRN Reason: Fever >100.4 F Atorvastatin Calcium (Lipitor) 20 mg PO DAILY [facility] Last Admin: 10/21/17 09:26 Dose: 20 mg Haloperidol Lactate (Haldol) 1 mg IVP Q6 PRN PRN Reason: Agitation Meropenem 500 mg/ Sodium (Chloride) 100 mls @ 100 mls/hr IVPB Q12 [facility] PRN Reason: Protocol Last Admin: 10/21/17 09:26 Dose: 100 mls/hr Fluconazole (Diflucan Iv 200 Mg/100 Ml Ns) 100 mls @ 100 mls/hr IVPB DAILY [facility] Last Admin: 10/21/17 09:23 Dose: 100 mls/hr Linezolid (Zyvox 600mg/300ml D5w) 600 mg in 300 mls @ 300 mls/hr IVPB Q12 [place] PRN Reason: Protocol Last Admin: 10/20/17 21:53 Dose: 300 mls/hr Azithromycin 500 mg/ Sodium (Chloride) 250 mls @ 250 mls/hr IVPB DAILY [facility] PRN Reason: Protocol Last Admin: 10/20/17 10:31 Dose: 250 mls/hr Insulin Human Lispro (Humalog) 0 units SC ACHS [place] PRN Reason: Protocol Last Admin: 10/21/17 06:30 Dose: 3 units Ipratropium [place] (Atrovent) 0.5 mg IH RQ6 [facility] Last Admin: 10/21/17 08:31 Dose: 0.5 mg Levalbuterol HCl (Xopenex) 0.63 mg INH RQ8 [facility] Last Admin: 10/21/17 08:31 Dose: 0.63 mg Levothyroxine Sodium (Synthroid) 50 mcg PO DAILY@0630 [facility] Last Admin: 10/21/17 06:20 Dose: 50 mcg Metoclopramide HCl (Reglan) 10 mg IVP Q8 [facility] Last Admin: 10/21/17 09:27 Dose: 10 mg Pantoprazole Sodium (Protonix Inj) 40 mg IVP Q12H [facility] Last Admin: 10/21/17 09:27 Dose: 40 mg - Labs Labs: 10/21/17 04:20 10/21/17 04:20 PT 16.2 Seconds (9.8-13.1) H 10/21/17 04:20 INR 1.5 (0.9-1.2) H 10/21/17 04:20 APTT 24.0 Seconds (25.6-37.1) L D 10/21/17 04:20 - Constitutional Appears: Chronically Ill - Eye Exam Eye Exam: Conjunctival injection - ENT Exam ENT Exam: Mucous Membranes Moist - Neck Exam Neck Exam: absent: Lymphadenopathy - Respiratory Exam Respiratory Exam: Rales, Rhonchi. absent: Chest Wall Tenderness - Cardiovascular Exam Cardiovascular Exam: absent: Gallop, JVD, Rubs - GI/Abdominal Exam GI & Abdominal Exam: Soft - Extremities Exam Extremities Exam: absent: Calf Tenderness - Back Exam Back Exam: absent: CVA tenderness (L), CVA tenderness (R) - Neurological Exam Neurological Exam: Altered - Psychiatric Exam Psychiatric exam: Flat Affect - Skin Skin Exam: absent: Cyanosis Assessment and Plan (1) Influenza A Status: Acute (2) Pneumonia Status: Acute (3) Respiratory failure Status: Acute (4) Sepsis Status: Acute (5) NAHOMI (acute kidney injury) Assessment & Plan: Acute renal failure with respiratory failure and congestive heart failure and volume overloaded. Patient scheduled to have dialysis shortly with ultrafiltration to go for about 2200 mL if possible I discussed with the death surveys coder and the RN and the resident To give albumin on dialysis to support blood pressure so we can get more ultrafiltration. Sodium bath 138 Potassium bath 2 mEq Bicarbonate bath 34 Continue all respiratory support as per primary team and antibiotics as noted Status: Acute
[2017-10-21] MEDS: Linezolid 600 mg in D5W 300 ml 600 MG/300 ML BAG IVPB SCH ×2 (10:37→20:09)
[2017-10-21 10:43] LABS: LYMPHOCYTE 7 % (20-50); MONOCYTE 2 % (0-10); NEUTROPHIL 91 % (42-75); TOTAL CELLS COUNTED 100
[2017-10-21 10:44] LABS: ANISOCYTOSIS SLIGHT; PLATELET ESTIMATE DECREASED (NORMAL)
--- NOTE | 2017-10-21 10:51 | CP.CCUPN ---
<Heidi Mascorro - Last Filed: 10/21/17 15:12> CCU Subjective - Physician Review Subjective (Free Text): 10/21/17 87 y/o F /with PMHX of HTN, HYpercholesterolemia, DM admitted with persistent cough, chest congestion, fevers for 2 days found to be Influenza positive with superimposed multilobar pneumonia. Patient remains intubated and sedated with propofol. Patient was seen and examined with otr tanker truck driver attending this morning. ABG done today on FiO2 60 %, showed PaO2 119, O2 sat 98.9 %. FiO2 60 %. Now patient is ON PRVC AC set 14 TV 400, 99- 100 % on FiO2 60 % PEEP 5. As per nurse report patient still oliguric , output overnight was ml/12 hours. Patient tolerated dialysis well yesterday. I & O reviewed. Still oliguric. As per Nephro will receive dialysis this morning. As per nurse report 2 units of PRBC was transfused, after H/H on 10/20/17 came back 6.7/20.9. 1 unit of FFP was transfused today morning to correct abnormal coag panel. Lasix was given. Critical Care Time Spent (in minutes): 35 CCU Objective - Vital Signs / Intake & Output Vital Signs (Last 4 hours): Vital Signs Temp Pulse Resp BP Pulse Ox 10/21/17 08:00 98.1 F 88 47 H 129/59 L 97 10/21/17 06:48 86 20 128/51 L 98 Intake and Output (Last 8hrs): Intake & Output 10/20/17 10/21/17 10/21/17 22:59 06:59 14:59 Intake Total 595 1578 10 Output Total 50 75 0 Balance 545 1503 10 Weight 149 lb Intake: IV 70 74 10 Intake, Piggyback 100 300 Blood Product 325 1204 Free Water Flush 100 Output: Gastric Amount 0 Stomach 0 Urine 50 75 Urethral (Jamil) 50 75 Other: # Bowel Movements 1 1 - Physical Exam Head: Positive for: Atraumatic, Normocephalic. Negative for: Tenderness, Contusion Pupils: Positive for: PERRL. Negative for: Sluggish, Non-Reactive Extroacular Muscles: Negative for: Gaze Palsy, Entrapment Conjunctiva: Positive for: Normal. Negative for: Injected, Icteric Mouth: Positive for: Moist Mucous Membranes Pharnyx: Positive for: Normal Nose (External): Positive for: Atraumatic Nose (Internal): Positive for: Normal Inspection Neck: Positive for: Trachea Midline. Negative for: Meningeal Signs, MIDLINE TENDERNESS, Paraspinal Tenderness, JVD, Lymphadenopathy, Bruit, Other Respiratory/Chest: Positive for: Clear to Auscultation, Good Air Exchange. Negative for: Respiratory Distress, Accessory Muscle Use, Wheezes, Rales, Rhonchi, Tender to Palpation Cardiovascular: Positive for: Regular Rate and Rhythm, Normal S1, S2, Peripheal Pulses Present. Negative for: Murmurs, Irregular Rhythm, Tachycardic Abdomen: Positive for: Normal Bowel Sounds. Negative for: Tenderness, Distention, Peritoneal Signs Upper Extremity: Positive for: Normal Inspection, Edema (no pitting edema in upper/lower extremities), NORMAL PULSES, Capillary Refill < 2s. Negative for: Cyanosis Lower Extremity: Positive for: Edema (in lower extremities), NORMAL PULSES, Capillary Refill < 2 s Neurological: Positive for: Other (sedated on mechanical ventilation) Skin: Positive for: Warm, Dry, Pale Psychiatric: Positive for: Other (Intubated and sedated). Negative for: Alert, Oriented x 3 - Medications Active Medications: Active Medications Generic Name Dose Route Start Last Admin Trade Name Freq PRN Reason Stop Dose Admin Acetaminophen 975 mg 10/11/17 20:15 Tylenol 325mg Tab PO ONCE PRN Fever >100.4 F Atorvastatin Calcium 20 mg 10/12/17 09:00 10/21/17 09:26 Lipitor PO 20 mg DAILY MI Administration Haloperidol Lactate 1 mg 10/11/17 20:15 Haldol IVP Q6 PRN Agitation Meropenem 500 mg/ Sodium 100 mls @ 100 mls/hr 10/15/17 10:30 10/21/17 09:26 Chloride IVPB 100 mls/hr Q12 MI Administration Protocol Linezolid 600 mg in 300 mls @ 300 mls/hr 10/15/17 21:00 10/21/17 10:37 Zyvox 600mg/300ml D5w IVPB 300 mls/hr Q12 MI Administration Protocol Azithromycin 500 mg/ Sodium 250 mls @ 250 mls/hr 10/18/17 12:45 10/20/17 10: 31 Chloride IVPB 250 mls/hr DAILY MI Administration Protocol Insulin Human Lispro 0 units 02/05/18 22:00 10/21/17 06:30 Humalog SC 3 units ACHS MI Administration Protocol Ipratropium [place] 0.5 mg 10/18/17 14:00 10/21/17 08:31 Atrovent IH 0.5 mg RQ6 MI Administration Levalbuterol HCl 0.63 mg 10/12/17 00:00 10/21/17 08:31 Xopenex INH 0.63 mg RQ8 MI Administration Levothyroxine Sodium 50 mcg 10/12/17 06:30 10/21/17 06:20 Synthroid PO 50 mcg DAILY@0630 MI Administration Metoclopramide HCl 10 mg 10/19/17 01:00 10/21/17 09:27 Reglan IVP 10 mg Q8 MI Administration Pantoprazole Sodium 40 mg 10/19/17 22:00 10/21/17 09:27 Protonix Inj IVP 40 mg Q12H MI Administration - Patient Studies Lab Studies: Microbiology Studies 10/15/17 10:20 Blood Culture - Final Blood NO GROWTH AFTER 5 DAYS Gram Stain - Final TEST NOT PERFORMED Lab Studies 10/21/17 10/21/17 10/21/17 Range/Units 05:29 05:08 04:20 WBC (4.8-10.8) K/uL RBC (3.80-5.20) Mil/uL Hgb (12.0-16.0) g/dL Hct (34.0-47.0) % MCV (81.0-99.0) fl MCH (27.0-31.0) pg MCHC (33.0-37.0) g/dL RDW (11.5-14.5) % Plt Count (130-400) K/uL MPV (7.2-11.7) fl Neut % (Auto) (50.0-75.0) % Lymph % (Auto) (20.0-40.0) % Barry % (Auto) (0.0-10.0) % Eos % (Auto) (0.0-4.0) % Baso % (Auto) (0.0-2.0) % Neut # (Auto) (1.8-7.0) K/uL Lymph # (Auto) (1.0-4.3) K/uL Barry # (Auto) (0.0-0.8) K/uL Eos # (Auto) (0.0-0.7) K/uL Baso # (Auto) (0.0-0.2) K/uL PT 16.2 H (9.8-13.1) Seconds INR 1.5 H (0.9-1.2) APTT 24.0 L D (25.6-37.1) Seconds Fibrinogen 255 (200-400) mg/dl pCO2 35 (35-45) mm/Hg pO2 119 H (80-100) mm/Hg HCO3 18.0 L (21-28) mmol/L ABG pH 7.29 L (7.35-7.45) ABG Total CO2 17.9 L (22-28) mmol/L ABG O2 Saturation 98.9 H (95-98) % ABG Base Excess -8.9 L (-2.0-3.0) mmol/L Michael Test Yes ABG Potassium 4.9 (3.6-5.2) mmol/L A-a O2 Difference 265.0 mm/Hg Glucose 295 H (65-105) mg/dL Lactate 3.1 H (0.7-2.1) mmol/L Vent Mode A/c Mechanical Rate 14 FiO2 60.0 % Tidal Volume 400 PEEP 5 Sodium 132.0 (132-148) mmol/l Potassium (3.6-5.0) MMOL/L Chloride 101.0 (98-107) mmol/L Carbon Dioxide (22-30) mmol/L Anion Gap (10-20) BUN (7-17) mg/dl Creatinine (0.7-1.2) mg/dl Est GFR ( Amer) Est GFR (Non-Af Amer) POC Glucose (mg/dL) 253 H (65-110) mg/dL Random Glucose (65-105) mg/dL Calcium (8.4-10.2) mg/dL Arterial Blood Potassium 4.9 (3.6-5.2) mmol/L Hep Bs Antigen (NEGATIVE) Hep Bs Antibody (NEGATIVE) Hep B Core IgM Ab (NEGATIVE) Blood Type Blood Type Confirm Antibody Screen Crossmatch BBK History Checked 10/21/17 10/21/17 10/20/17 Range/Units 04:20 04:20 23:58 WBC 8.9 (4.8-10.8) K/uL RBC 3.18 L (3.80-5.20) Mil/uL Hgb 9.3 L D (12.0-16.0) g/dL Hct 28.3 L (34.0-47.0) % MCV 89.1 D (81.0-99.0) fl MCH 29.2 (27.0-31.0) pg MCHC 32.8 L (33.0-37.0) g/dL RDW 15.7 H (11.5-14.5) % Plt Count 75 L (130-400) K/uL MPV 9.2 (7.2-11.7) fl Neut % (Auto) 92.5 H (50.0-75.0) % Lymph % (Auto) 6.0 L (20.0-40.0) % Barry % (Auto) 1.5 (0.0-10.0) % Eos % (Auto) 0.0 (0.0-4.0) % Baso % (Auto) 0.0 (0.0-2.0) % Neut # (Auto) 8.2 H (1.8-7.0) K/uL Lymph # (Auto) 0.5 L (1.0-4.3) K/uL Barry # (Auto) 0.1 (0.0-0.8) K/uL Eos # (Auto) 0.0 (0.0-0.7) K/uL Baso # (Auto) 0.0 (0.0-0.2) K/uL PT (9.8-13.1) Seconds INR (0.9-1.2) APTT (25.6-37.1) Seconds Fibrinogen (200-400) mg/dl pCO2 (35-45) mm/Hg pO2 (80-100) mm/Hg HCO3 (21-28) mmol/L ABG pH (7.35-7.45) ABG Total CO2 (22-28) mmol/L ABG O2 Saturation (95-98) % ABG Base Excess (-2.0-3.0) mmol/L Michael Test ABG Potassium (3.6-5.2) mmol/L A-a O2 Difference mm/Hg Glucose (65-105) mg/dL Lactate (0.7-2.1) mmol/L Vent Mode Mechanical Rate FiO2 % Tidal Volume PEEP Sodium 135 (132-148) mmol/l Potassium 5.0 (3.6-5.0) MMOL/L Chloride 103 (98-107) mmol/L Carbon Dioxide 15 L (22-30) mmol/L Anion Gap 22 H (10-20) BUN 81 H (7-17) mg/dl Creatinine 3.0 H (0.7-1.2) mg/dl Est GFR ( Amer) 18 Est GFR (Non-Af Amer) 15 POC Glucose (mg/dL) (65-110) mg/dL Random Glucose 277 H (65-105) mg/dL Calcium 7.4 L (8.4-10.2) mg/dL Arterial Blood Potassium (3.6-5.2) mmol/L Hep Bs Antigen (NEGATIVE) Hep Bs Antibody (NEGATIVE) Hep B Core IgM Ab (NEGATIVE) Blood Type Blood Type Confirm A POSITIVE Antibody Screen Crossmatch BBK History Checked 10/20/17 10/20/17 10/20/17 Range/Units 20:12 17:30 17:30 WBC (4.8-10.8) K/uL RBC (3.80-5.20) Mil/uL Hgb (12.0-16.0) g/dL Hct (34.0-47.0) % MCV (81.0-99.0) fl MCH (27.0-31.0) pg MCHC (33.0-37.0) g/dL RDW (11.5-14.5) % Plt Count (130-400) K/uL MPV (7.2-11.7) fl Neut % (Auto) (50.0-75.0) % Lymph % (Auto) (20.0-40.0) % Barry % (Auto) (0.0-10.0) % Eos % (Auto) (0.0-4.0) % Baso % (Auto) (0.0-2.0) % Neut # (Auto) (1.8-7.0) K/uL Lymph # (Auto) (1.0-4.3) K/uL Barry # (Auto) (0.0-0.8) K/uL Eos # (Auto) (0.0-0.7) K/uL Baso # (Auto) (0.0-0.2) K/uL PT 20.1 H (9.8-13.1) Seconds INR 1.8 H (0.9-1.2) APTT 31.1 (25.6-37.1) Seconds Fibrinogen (200-400) mg/dl pCO2 (35-45) mm/Hg pO2 (80-100) mm/Hg HCO3 (21-28) mmol/L ABG pH (7.35-7.45) ABG Total CO2 (22-28) mmol/L ABG O2 Saturation (95-98) % ABG Base Excess (-2.0-3.0) mmol/L Michael Test ABG Potassium (3.6-5.2) mmol/L A-a O2 Difference mm/Hg Glucose (65-105) mg/dL Lactate (0.7-2.1) mmol/L Vent Mode Mechanical Rate FiO2 % Tidal Volume PEEP Sodium (132-148) mmol/l Potassium (3.6-5.0) MMOL/L Chloride (98-107) mmol/L Carbon Dioxide (22-30) mmol/L Anion Gap (10-20) BUN (7-17) mg/dl Creatinine (0.7-1.2) mg/dl Est GFR ( Amer) Est GFR (Non-Af Amer) POC Glucose (mg/dL) 217 H (65-110) mg/dL Random Glucose (65-105) mg/dL Calcium (8.4-10.2) mg/dL Arterial Blood Potassium (3.6-5.2) mmol/L Hep Bs Antigen (NEGATIVE) Hep Bs Antibody (NEGATIVE) Hep B Core IgM Ab (NEGATIVE) Blood Type A POSITIVE Blood Type Confirm Antibody Screen Negative Crossmatch See Detail BBK History Checked No verified bt 10/20/17 10/20/17 10/20/17 Range/Units 17:30 15:32 11:26 WBC 10.2 (4.8-10.8) K/uL RBC 2.23 L (3.80-5.20) Mil/uL Hgb 6.7 L (12.0-16.0) g/dL Hct 20.9 L (34.0-47.0) % MCV 93.5 (81.0-99.0) fl MCH 30.2 (27.0-31.0) pg MCHC 32.3 L (33.0-37.0) g/dL RDW 13.8 (11.5-14.5) % Plt Count 59 L (130-400) K/uL MPV (7.2-11.7) fl Neut % (Auto) (50.0-75.0) % Lymph % (Auto) (20.0-40.0) % Barry % (Auto) (0.0-10.0) % Eos % (Auto) (0.0-4.0) % Baso % (Auto) (0.0-2.0) % Neut # (Auto) (1.8-7.0) K/uL Lymph # (Auto) (1.0-4.3) K/uL Barry # (Auto) (0.0-0.8) K/uL Eos # (Auto) (0.0-0.7) K/uL Baso # (Auto) (0.0-0.2) K/uL PT (9.8-13.1) Seconds INR (0.9-1.2) APTT (25.6-37.1) Seconds Fibrinogen (200-400) mg/dl pCO2 (35-45) mm/Hg pO2 (80-100) mm/Hg HCO3 (21-28) mmol/L ABG pH (7.35-7.45) ABG Total CO2 (22-28) mmol/L ABG O2 Saturation (95-98) % ABG Base Excess (-2.0-3.0) mmol/L Michael Test ABG Potassium (3.6-5.2) mmol/L A-a O2 Difference mm/Hg Glucose (65-105) mg/dL Lactate (0.7-2.1) mmol/L Vent Mode Mechanical Rate FiO2 % Tidal Volume PEEP Sodium (132-148) mmol/l Potassium (3.6-5.0) MMOL/L Chloride (98-107) mmol/L Carbon Dioxide (22-30) mmol/L Anion Gap (10-20) BUN (7-17) mg/dl Creatinine (0.7-1.2) mg/dl Est GFR ( Amer) Est GFR (Non-Af Amer) POC Glucose (mg/dL) 214 H 209 H (65-110) mg/dL Random Glucose (65-105) mg/dL Calcium (8.4-10.2) mg/dL Arterial Blood Potassium (3.6-5.2) mmol/L Hep Bs Antigen (NEGATIVE) Hep Bs Antibody (NEGATIVE) Hep B Core IgM Ab (NEGATIVE) Blood Type Blood Type Confirm Antibody Screen Crossmatch BBK History Checked 10/20/17 10/20/17 Range/Units 06:38 06:38 WBC (4.8-10.8) K/uL RBC (3.80-5.20) Mil/uL Hgb (12.0-16.0) g/dL Hct (34.0-47.0) % MCV (81.0-99.0) fl MCH (27.0-31.0) pg MCHC (33.0-37.0) g/dL RDW (11.5-14.5) % Plt Count (130-400) K/uL MPV (7.2-11.7) fl Neut % (Auto) (50.0-75.0) % Lymph % (Auto) (20.0-40.0) % Barry % (Auto) (0.0-10.0) % Eos % (Auto) (0.0-4.0) % Baso % (Auto) (0.0-2.0) % Neut # (Auto) (1.8-7.0) K/uL Lymph # (Auto) (1.0-4.3) K/uL Barry # (Auto) (0.0-0.8) K/uL Eos # (Auto) (0.0-0.7) K/uL Baso # (Auto) (0.0-0.2) K/uL PT (9.8-13.1) Seconds INR (0.9-1.2) APTT (25.6-37.1) Seconds Fibrinogen (200-400) mg/dl pCO2 (35-45) mm/Hg pO2 (80-100) mm/Hg HCO3 (21-28) mmol/L ABG pH (7.35-7.45) ABG Total CO2 (22-28) mmol/L ABG O2 Saturation (95-98) % ABG Base Excess (-2.0-3.0) mmol/L Michael Test ABG Potassium (3.6-5.2) mmol/L A-a O2 Difference mm/Hg Glucose (65-105) mg/dL Lactate (0.7-2.1) mmol/L Vent Mode Mechanical Rate FiO2 % Tidal Volume PEEP Sodium (132-148) mmol/l Potassium (3.6-5.0) MMOL/L Chloride (98-107) mmol/L Carbon Dioxide (22-30) mmol/L Anion Gap (10-20) BUN (7-17) mg/dl Creatinine (0.7-1.2) mg/dl Est GFR ( Amer) Est GFR (Non-Af Amer) POC Glucose (mg/dL) (65-110) mg/dL Random Glucose (65-105) mg/dL Calcium (8.4-10.2) mg/dL Arterial Blood Potassium (3.6-5.2) mmol/L Hep Bs Antigen Negative (NEGATIVE) Hep Bs Antibody Negative (NEGATIVE) Hep B Core IgM Ab Negative (NEGATIVE) Blood Type Blood Type Confirm Antibody Screen Crossmatch BBK History Checked Laboratory Results - last 24 hr 10/20/17 10/20/17 10/20/17 06:38 06:38 11:26 WBC RBC Hgb Hct MCV MCH MCHC RDW Plt Count MPV Neut % (Auto) Lymph % (Auto) Barry % (Auto) Eos % (Auto) Baso % (Auto) Neut # (Auto) Lymph # (Auto) Barry # (Auto) Eos # (Auto) Baso # (Auto) PT INR APTT Fibrinogen pCO2 pO2 HCO3 ABG pH ABG Total CO2 ABG O2 Saturation ABG Base Excess Michael Test ABG Potassium A-a O2 Difference Glucose Lactate Vent Mode Mechanical Rate FiO2 Tidal Volume PEEP Sodium Potassium Chloride Carbon Dioxide Anion Gap BUN Creatinine Est GFR ( Amer) Est GFR (Non-Af Amer) POC Glucose (mg/dL) 209 H Random Glucose Calcium Arterial Blood Potassium Hep Bs Antigen Negative Hep Bs Antibody Negative Hep B Core IgM Ab Negative Blood Type Blood Type Confirm Antibody Screen Crossmatch BBK History Checked 10/20/17 10/20/17 10/20/17 15:32 17:30 17:30 WBC 10.2 RBC 2.23 L Hgb 6.7 L Hct 20.9 L MCV 93.5 MCH 30.2 MCHC 32.3 L RDW 13.8 Plt Count 59 L MPV Neut % (Auto) Lymph % (Auto) Barry % (Auto) Eos % (Auto) Baso % (Auto) Neut # (Auto) Lymph # (Auto) Barry # (Auto) Eos # (Auto) Baso # (Auto) PT 20.1 H INR 1.8 H APTT 31.1 Fibrinogen pCO2 pO2 HCO3 ABG pH ABG Total CO2 ABG O2 Saturation ABG Base Excess Michael Test ABG Potassium A-a O2 Difference Glucose Lactate Vent Mode Mechanical Rate FiO2 Tidal Volume PEEP Sodium Potassium Chloride Carbon Dioxide Anion Gap BUN Creatinine Est GFR ( Amer) Est GFR (Non-Af Amer) POC Glucose (mg/dL) 214 H Random Glucose Calcium Arterial Blood Potassium Hep Bs Antigen Hep Bs Antibody Hep B Core IgM Ab Blood Type Blood Type Confirm Antibody Screen Crossmatch BBK History Checked 10/20/17 10/20/17 10/20/17 17:30 20:12 23:58 WBC RBC Hgb Hct MCV MCH MCHC RDW Plt Count MPV Neut % (Auto) Lymph % (Auto) Barry % (Auto) Eos % (Auto) Baso % (Auto) Neut # (Auto) Lymph # (Auto) Barry # (Auto) Eos # (Auto) Baso # (Auto) PT INR APTT Fibrinogen pCO2 pO2 HCO3 ABG pH ABG Total CO2 ABG O2 Saturation ABG Base Excess Michael Test ABG Potassium A-a O2 Difference Glucose Lactate Vent Mode Mechanical Rate FiO2 Tidal Volume PEEP Sodium Potassium Chloride Carbon Dioxide Anion Gap BUN Creatinine Est GFR ( Amer) Est GFR (Non-Af Amer) POC Glucose (mg/dL) 217 H Random Glucose Calcium Arterial Blood Potassium Hep Bs Antigen Hep Bs Antibody Hep B Core IgM Ab Blood Type A POSITIVE Blood Type Confirm A POSITIVE Antibody Screen Negative Crossmatch See Detail BBK History Checked No verified bt 10/21/17 10/21/17 10/21/17 04:20 04:20 04:20 WBC 8.9 RBC 3.18 L Hgb 9.3 L D Hct 28.3 L MCV 89.1 D MCH 29.2 MCHC 32.8 L RDW 15.7 H Plt Count 75 L MPV 9.2 Neut % (Auto) 92.5 H Lymph % (Auto) 6.0 L Barry % (Auto) 1.5 Eos % (Auto) 0.0 Baso % (Auto) 0.0 Neut # (Auto) 8.2 H Lymph # (Auto) 0.5 L Barry # (Auto) 0.1 Eos # (Auto) 0.0 Baso # (Auto) 0.0 PT 16.2 H INR 1.5 H APTT 24.0 L D Fibrinogen 255 pCO2 pO2 HCO3 ABG pH ABG Total CO2 ABG O2 Saturation ABG Base Excess Michael Test ABG Potassium A-a O2 Difference Glucose Lactate Vent Mode Mechanical Rate FiO2 Tidal Volume PEEP Sodium 135 Potassium 5.0 Chloride 103 Carbon Dioxide 15 L Anion Gap 22 H BUN 81 H Creatinine 3.0 H Est GFR ( Amer) 18 Est GFR (Non-Af Amer) 15 POC Glucose (mg/dL) Random Glucose 277 H Calcium 7.4 L Arterial Blood Potassium Hep Bs Antigen Hep Bs Antibody Hep B Core IgM Ab Blood Type Blood Type Confirm Antibody Screen Crossmatch BBK History Checked 10/21/17 10/21/17 05:08 05:29 WBC RBC Hgb Hct MCV MCH MCHC RDW Plt Count MPV Neut % (Auto) Lymph % (Auto) Barry % (Auto) Eos % (Auto) Baso % (Auto) Neut # (Auto) Lymph # (Auto) Barry # (Auto) Eos # (Auto) Baso # (Auto) PT INR APTT Fibrinogen pCO2 35 pO2 119 H HCO3 18.0 L ABG pH 7.29 L ABG Total CO2 17.9 L ABG O2 Saturation 98.9 H ABG Base Excess -8.9 L Michael Test Yes ABG Potassium 4.9 A-a O2 Difference 265.0 Glucose 295 H Lactate 3.1 H Vent Mode A/c Mechanical Rate 14 FiO2 60.0 Tidal Volume 400 PEEP 5 Sodium 132.0 Potassium Chloride 101.0 Carbon Dioxide Anion Gap BUN Creatinine Est GFR ( Amer) Est GFR (Non-Af Amer) POC Glucose (mg/dL) 253 H Random Glucose Calcium Arterial Blood Potassium 4.9 Hep Bs Antigen Hep Bs Antibody Hep B Core IgM Ab Blood Type Blood Type Confirm Antibody Screen Crossmatch BBK History Checked Fingerstick Blood Sugar Results: 253 Review of Systems - Review of Systems Review of Systems: unable to assess because intubation on mechanical ventilation, and sedation Critical Care Progress Note - Nutrition Nutrition: Nutrition Category Date Time Status NPO Diet [DIET] Diets 10/12/17 Breakfast Active Assessment/Plan - Assessment and Plan (Free Text) Plan: Sepsis -SIRS plus Pneumonia -afebrile, no tachy, but hypotensive -tachypnea, WBC : wnl/8.9, afebrile -lactate 3.1 on blood gas -Linezolid 600 mg IVPB Q12 day # 10 ( started on oct 11 PM). Will discuss with ID specialist in the case possible DC -Azithromycin 500 mg IVPB daily day # 10 ( started on oct 12) -Meropenen 500 mg Q12 day #6 ( started on 10/15/17) -Diflucan discontinued today after 5 days as per ID -Procalcitonin on 10/15/17 was 1.65/mild elevated -antibiotics as per ID -negative blood, sputum and urine cultures -ID on consult, f/u recs -Pulmonology on consult, f/u recs. Acute hypoxemic respiratory failure secondary Pneumonia in superimposed Influenza infection -s/p Bronchoscopy at bedside by Pulmonology -s/p post-endotracheal tube placement on 10/12/17 and Mechanical ventilation -PRVC AC 14 TV 400 FiO2 40 % PEEP 10 -Afebrile, no tachycardic. but hypotensive -c/w antibiotics as per ID -Linezolid 600 mg IVPB Q12 day # 10( started on oct 11 PM) -Azithromycin 500 mg IVPB daily day # 10( started on oct 12) -Meropenen 500 mg Q12 day #6 ( started on 10/15/17) -cultures from bronchoscopy specimen so far negative, pending final mycobacterial culture -c/w chest PT and suctioning -c/w nebulizer treatment -f/u CBC, ABG, CXR in AM -considering Tracheostomy to c/w mechanical vent -CXR today Diffuse bilateral infiltrates could represent pulmonary edema -CHF and/or pneumonia. Suspect small bilateral effusions -ID on consult, f/u recs -Pulmonology on consult, f/u recs. Acute Renal Failure -oliguric/ ml/12 hours -likely 2/2 sepsis and hypotension -elevated BUN/Cr 81/3.0 -c/w dialysis as per nephro -repeat dialysis today, wednesday and wednesday -infuse albumin cont during dialysis to support BP -f/u BUN/Cr -Nephrology on consult, recs are appreciated Anemia -acute on chronic -could be multifactorial -post transfusion H/H: 9.3/28.3 -s/p transfusion of 2 units of PRBC -Hgb dropped yesterday to 6.7 -no evidence of active bleeding at this time -f/u H/H -DC heparin -held aspirin for now Hypotension -most likely 2/2 sepsis -no on BP meds -Levophed held after blood transfusion becaused BP improved -infuse albumin cont during dialysis to support BP -f/u BP and consider levophed to support BP Diabetes mellitus type 2 -c/w glycemic control Diet -was held yesterday because episode of bloody secreation from OG tube -no evidence of bloody secration from OG tube during intermittent suction as per nurse report -start Nepro by OG tube/ continuous @ 20 cc/hr with goal of 40 ml/hr Prophylaxis -stress ulcer prophylaxis with protonix 40 mg IV,frequency was increased to Q12 -DVT prophylaxis SCDs for now. DC Heparin SC .Low Platelets /75 today. Will test for HIT, f/u HIT antibodies -pressure ulcers precautions - Date & Time Date: 10/21/17 Time: 08:10 <Shoaib Higuera - Last Filed: 10/21/17 15:44> CCU Objective - Vital Signs / Intake & Output Vital Signs (Last 4 hours): Vital Signs Temp Pulse Resp BP Pulse Ox 10/21/17 15:00 82 25 H 142/69 94 L 10/21/17 14:00 84 24 106/46 L 95 10/21/17 13:00 84 20 119/45 L 95 10/21/17 12:00 98.2 F 82 50 H 102/43 L 94 L Intake and Output (Last 8hrs): Intake & Output 10/21/17 10/21/17 10/21/17 06:59 14:59 22:59 Intake Total 1578 890 Output Total 75 0 Balance 1503 890 Weight 149 lb Intake: IV 74 40 Intake, Piggyback 300 850 Blood Product 1204 Output: Gastric Amount 0 Stomach 0 Urine 75 Urethral (Jamil) 75 Other: # Bowel Movements 1 1 - Medications Active Medications: Active Medications Generic Name Dose Route Start Last Admin Trade Name Freq PRN Reason Stop Dose Admin Acetaminophen 975 mg 10/11/17 20:15 Tylenol 325mg Tab PO ONCE PRN Fever >100.4 F Albumin Human 12.5 gm 10/21/17 12:30 10/21/17 13:20 Albumin Human 25% (12.5 Gm/50 Ml) IV 10/21/17 15:31 12.5 gm Q1H MI Administration Atorvastatin Calcium 20 mg 10/12/17 09:00 10/21/17 09:26 Lipitor PO 20 mg DAILY MI Administration Haloperidol Lactate 1 mg 10/11/17 20:15 Haldol IVP Q6 PRN Agitation Meropenem 500 mg/ Sodium 100 mls @ 100 mls/hr 10/15/17 10:30 10/21/17 09:26 Chloride IVPB 100 mls/hr Q12 MI Administration Protocol Linezolid 600 mg in 300 mls @ 300 mls/hr 10/15/17 21:00 10/21/17 10:37 Zyvox 600mg/300ml D5w IVPB 300 mls/hr Q12 MI Administration Protocol Azithromycin 500 mg/ Sodium 250 mls @ 250 mls/hr 10/18/17 12:45 10/21/17 12: 39 Chloride IVPB 250 mls/hr DAILY MI Administration Protocol Insulin Human Lispro 0 units 10/11/17 22:00 10/21/17 12:37 Humalog SC 2 units ACHS MI Administration Protocol Ipratropium [place] 0.5 mg 10/18/17 14:00 10/21/17 13:29 Atrovent IH 0.5 mg RQ6 MI Administration Levalbuterol HCl 0.63 mg 10/12/17 00:00 10/21/17 08:31 Xopenex INH 0.63 mg RQ8 MI Administration Levothyroxine Sodium 50 mcg 10/12/17 06:30 10/21/17 06:20 Synthroid PO 50 mcg DAILY@0630 MI Administration Metoclopramide HCl 10 mg 10/19/17 01:00 10/21/17 09:27 Reglan IVP 10 mg Q8 MI Administration Pantoprazole Sodium 40 mg 10/19/17 22:00 10/21/17 09:27 Protonix Inj IVP 40 mg Q12H MI Administration - Patient Studies Lab Studies: Microbiology Studies 10/15/17 10:20 Blood Culture - Final Blood NO GROWTH AFTER 5 DAYS Gram Stain - Final TEST NOT PERFORMED Lab Studies 10/21/17 10/21/17 10/21/17 Range/Units 11:15 05:29 05:08 WBC (4.8-10.8) K/uL RBC (3.80-5.20) Mil/uL Hgb (12.0-16.0) g/dL Hct (34.0-47.0) % MCV (81.0-99.0) fl MCH (27.0-31.0) pg MCHC (33.0-37.0) g/dL RDW (11.5-14.5) % Plt Count (130-400) K/uL MPV (7.2-11.7) fl Neut % (Auto) (50.0-75.0) % Lymph % (Auto) (20.0-40.0) % Barry % (Auto) (0.0-10.0) % Eos % (Auto) (0.0-4.0) % Baso % (Auto) (0.0-2.0) % Neut # (Auto) (1.8-7.0) K/uL Lymph # (Auto) (1.0-4.3) K/uL Barry # (Auto) (0.0-0.8) K/uL Eos # (Auto) (0.0-0.7) K/uL Baso # (Auto) (0.0-0.2) K/uL Neutrophils % (Manual) (42-75) % Lymphocytes % (Manual) (20-50) % Monocytes % (Manual) (0-10) % Toxic Granulation Platelet Estimate (NORMAL) Hypochromasia (manual) Anisocytosis (manual) PT (9.8-13.1) Seconds INR (0.9-1.2) APTT (25.6-37.1) Seconds Fibrinogen (200-400) mg/dl pCO2 35 (35-45) mm/Hg pO2 119 H (80-100) mm/Hg HCO3 18.0 L (21-28) mmol/L ABG pH 7.29 L (7.35-7.45) ABG Total CO2 17.9 L (22-28) mmol/L ABG O2 Saturation 98.9 H (95-98) % ABG Base Excess -8.9 L (-2.0-3.0) mmol/L Michael Test Yes ABG Potassium 4.9 (3.6-5.2) mmol/L A-a O2 Difference 265.0 mm/Hg Glucose 295 H (65-105) mg/dL Lactate 3.1 H (0.7-2.1) mmol/L Vent Mode A/c Mechanical Rate 14 FiO2 60.0 % Tidal Volume 400 PEEP 5 Sodium 132.0 (132-148) mmol/l Potassium (3.6-5.0) MMOL/L Chloride 101.0 (98-107) mmol/L Carbon Dioxide (22-30) mmol/L Anion Gap (10-20) BUN (7-17) mg/dl Creatinine (0.7-1.2) mg/dl Est GFR ( Amer) Est GFR (Non-Af Amer) POC Glucose (mg/dL) 205 H 253 H (65-110) mg/dL Random Glucose (65-105) mg/dL Calcium (8.4-10.2) mg/dL Arterial Blood Potassium 4.9 (3.6-5.2) mmol/L Hep Bs Antibody (NEGATIVE) Blood Type Blood Type Confirm Antibody Screen Crossmatch BBK History Checked 10/21/17 10/21/17 10/21/17 Range/Units 04:20 04:20 04:20 WBC 8.9 (4.8-10.8) K/uL RBC 3.18 L (3.80-5.20) Mil/uL Hgb 9.3 L D (12.0-16.0) g/dL Hct 28.3 L (34.0-47.0) % MCV 89.1 D (81.0-99.0) fl MCH 29.2 (27.0-31.0) pg MCHC 32.8 L (33.0-37.0) g/dL RDW 15.7 H (11.5-14.5) % Plt Count 75 L (130-400) K/uL MPV 9.2 (7.2-11.7) fl Neut % (Auto) 92.5 H (50.0-75.0) % Lymph % (Auto) 6.0 L (20.0-40.0) % Barry % (Auto) 1.5 (0.0-10.0) % Eos % (Auto) 0.0 (0.0-4.0) % Baso % (Auto) 0.0 (0.0-2.0) % Neut # (Auto) 8.2 H (1.8-7.0) K/uL Lymph # (Auto) 0.5 L (1.0-4.3) K/uL Barry # (Auto) 0.1 (0.0-0.8) K/uL Eos # (Auto) 0.0 (0.0-0.7) K/uL Baso # (Auto) 0.0 (0.0-0.2) K/uL Neutrophils % (Manual) 91 H (42-75) % Lymphocytes % (Manual) 7 L (20-50) % Monocytes % (Manual) 2 (0-10) % Toxic Granulation Present Platelet Estimate Decreased L (NORMAL) Hypochromasia (manual) Slight Anisocytosis (manual) Slight PT 16.2 H (9.8-13.1) Seconds INR 1.5 H (0.9-1.2) APTT 24.0 L D (25.6-37.1) Seconds Fibrinogen 255 (200-400) mg/dl pCO2 (35-45) mm/Hg pO2 (80-100) mm/Hg HCO3 (21-28) mmol/L ABG pH (7.35-7.45) ABG Total CO2 (22-28) mmol/L ABG O2 Saturation (95-98) % ABG Base Excess (-2.0-3.0) mmol/L Michael Test ABG Potassium (3.6-5.2) mmol/L A-a O2 Difference mm/Hg Glucose (65-105) mg/dL Lactate (0.7-2.1) mmol/L Vent Mode Mechanical Rate FiO2 % Tidal Volume PEEP Sodium 135 (132-148) mmol/l Potassium 5.0 (3.6-5.0) MMOL/L Chloride 103 (98-107) mmol/L Carbon Dioxide 15 L (22-30) mmol/L Anion Gap 22 H (10-20) BUN 81 H (7-17) mg/dl Creatinine 3.0 H (0.7-1.2) mg/dl Est GFR ( Amer) 18 Est GFR (Non-Af Amer) 15 POC Glucose (mg/dL) (65-110) mg/dL Random Glucose 277 H (65-105) mg/dL Calcium 7.4 L (8.4-10.2) mg/dL Arterial Blood Potassium (3.6-5.2) mmol/L Hep Bs Antibody (NEGATIVE) Blood Type Blood Type Confirm Antibody Screen Crossmatch BBK History Checked 10/20/17 10/20/17 10/20/17 Range/Units 23:58 20:12 17:30 WBC (4.8-10.8) K/uL RBC (3.80-5.20) Mil/uL Hgb (12.0-16.0) g/dL Hct (34.0-47.0) % MCV (81.0-99.0) fl MCH (27.0-31.0) pg MCHC (33.0-37.0) g/dL RDW (11.5-14.5) % Plt Count (130-400) K/uL MPV (7.2-11.7) fl Neut % (Auto) (50.0-75.0) % Lymph % (Auto) (20.0-40.0) % Barry % (Auto) (0.0-10.0) % Eos % (Auto) (0.0-4.0) % Baso % (Auto) (0.0-2.0) % Neut # (Auto) (1.8-7.0) K/uL Lymph # (Auto) (1.0-4.3) K/uL Barry # (Auto) (0.0-0.8) K/uL Eos # (Auto) (0.0-0.7) K/uL Baso # (Auto) (0.0-0.2) K/uL Neutrophils % (Manual) (42-75) % Lymphocytes % (Manual) (20-50) % Monocytes % (Manual) (0-10) % Toxic Granulation Platelet Estimate (NORMAL) Hypochromasia (manual) Anisocytosis (manual) PT (9.8-13.1) Seconds INR (0.9-1.2) APTT (25.6-37.1) Seconds Fibrinogen (200-400) mg/dl pCO2 (35-45) mm/Hg pO2 (80-100) mm/Hg HCO3 (21-28) mmol/L ABG pH (7.35-7.45) ABG Total CO2 (22-28) mmol/L ABG O2 Saturation (95-98) % ABG Base Excess (-2.0-3.0) mmol/L Michael Test ABG Potassium (3.6-5.2) mmol/L A-a O2 Difference mm/Hg Glucose (65-105) mg/dL Lactate (0.7-2.1) mmol/L Vent Mode Mechanical Rate FiO2 % Tidal Volume PEEP Sodium (132-148) mmol/l Potassium (3.6-5.0) MMOL/L Chloride (98-107) mmol/L Carbon Dioxide (22-30) mmol/L Anion Gap (10-20) BUN (7-17) mg/dl Creatinine (0.7-1.2) mg/dl Est GFR ( Amer) Est GFR (Non-Af Amer) POC Glucose (mg/dL) 217 H (65-110) mg/dL Random Glucose (65-105) mg/dL Calcium (8.4-10.2) mg/dL Arterial Blood Potassium (3.6-5.2) mmol/L Hep Bs Antibody (NEGATIVE) Blood Type A POSITIVE Blood Type Confirm A POSITIVE Antibody Screen Negative Crossmatch See Detail BBK History Checked No verified bt 10/20/17 10/20/17 10/20/17 Range/Units 17:30 17:30 15:32 WBC 10.2 (4.8-10.8) K/uL RBC 2.23 L (3.80-5.20) Mil/uL Hgb 6.7 L (12.0-16.0) g/dL Hct 20.9 L (34.0-47.0) % MCV 93.5 (81.0-99.0) fl MCH 30.2 (27.0-31.0) pg MCHC 32.3 L (33.0-37.0) g/dL RDW 13.8 (11.5-14.5) % Plt Count 59 L (130-400) K/uL MPV (7.2-11.7) fl Neut % (Auto) (50.0-75.0) % Lymph % (Auto) (20.0-40.0) % Barry % (Auto) (0.0-10.0) % Eos % (Auto) (0.0-4.0) % Baso % (Auto) (0.0-2.0) % Neut # (Auto) (1.8-7.0) K/uL Lymph # (Auto) (1.0-4.3) K/uL Barry # (Auto) (0.0-0.8) K/uL Eos # (Auto) (0.0-0.7) K/uL Baso # (Auto) (0.0-0.2) K/uL Neutrophils % (Manual) (42-75) % Lymphocytes % (Manual) (20-50) % Monocytes % (Manual) (0-10) % Toxic Granulation Platelet Estimate (NORMAL) Hypochromasia (manual) Anisocytosis (manual) PT 20.1 H (9.8-13.1) Seconds INR 1.8 H (0.9-1.2) APTT 31.1 (25.6-37.1) Seconds Fibrinogen (200-400) mg/dl pCO2 (35-45) mm/Hg pO2 (80-100) mm/Hg HCO3 (21-28) mmol/L ABG pH (7.35-7.45) ABG Total CO2 (22-28) mmol/L ABG O2 Saturation (95-98) % ABG Base Excess (-2.0-3.0) mmol/L Michael Test ABG Potassium (3.6-5.2) mmol/L A-a O2 Difference mm/Hg Glucose (65-105) mg/dL Lactate (0.7-2.1) mmol/L Vent Mode Mechanical Rate FiO2 % Tidal Volume PEEP Sodium (132-148) mmol/l Potassium (3.6-5.0) MMOL/L Chloride (98-107) mmol/L Carbon Dioxide (22-30) mmol/L Anion Gap (10-20) BUN (7-17) mg/dl Creatinine (0.7-1.2) mg/dl Est GFR ( Amer) Est GFR (Non-Af Amer) POC Glucose (mg/dL) 214 H (65-110) mg/dL Random Glucose (65-105) mg/dL Calcium (8.4-10.2) mg/dL Arterial Blood Potassium (3.6-5.2) mmol/L Hep Bs Antibody (NEGATIVE) Blood Type Blood Type Confirm Antibody Screen Crossmatch BBK History Checked 10/20/17 Range/Units 06:38 WBC (4.8-10.8) K/uL RBC (3.80-5.20) Mil/uL Hgb (12.0-16.0) g/dL Hct (34.0-47.0) % MCV (81.0-99.0) fl MCH (27.0-31.0) pg MCHC (33.0-37.0) g/dL RDW (11.5-14.5) % Plt Count (130-400) K/uL MPV (7.2-11.7) fl Neut % (Auto) (50.0-75.0) % Lymph % (Auto) (20.0-40.0) % Barry % (Auto) (0.0-10.0) % Eos % (Auto) (0.0-4.0) % Baso % (Auto) (0.0-2.0) % Neut # (Auto) (1.8-7.0) K/uL Lymph # (Auto) (1.0-4.3) K/uL Barry # (Auto) (0.0-0.8) K/uL Eos # (Auto) (0.0-0.7) K/uL Baso # (Auto) (0.0-0.2) K/uL Neutrophils % (Manual) (42-75) % Lymphocytes % (Manual) (20-50) % Monocytes % (Manual) (0-10) % Toxic Granulation Platelet Estimate (NORMAL) Hypochromasia (manual) Anisocytosis (manual) PT (9.8-13.1) Seconds INR (0.9-1.2) APTT (25.6-37.1) Seconds Fibrinogen (200-400) mg/dl pCO2 (35-45) mm/Hg pO2 (80-100) mm/Hg HCO3 (21-28) mmol/L ABG pH (7.35-7.45) ABG Total CO2 (22-28) mmol/L ABG O2 Saturation (95-98) % ABG Base Excess (-2.0-3.0) mmol/L Michael Test ABG Potassium (3.6-5.2) mmol/L A-a O2 Difference mm/Hg Glucose (65-105) mg/dL Lactate (0.7-2.1) mmol/L Vent Mode Mechanical Rate FiO2 % Tidal Volume PEEP Sodium (132-148) mmol/l Potassium (3.6-5.0) MMOL/L Chloride (98-107) mmol/L Carbon Dioxide (22-30) mmol/L Anion Gap (10-20) BUN (7-17) mg/dl Creatinine (0.7-1.2) mg/dl Est GFR ( Amer) Est GFR (Non-Af Amer) POC Glucose (mg/dL) (65-110) mg/dL Random Glucose (65-105) mg/dL Calcium (8.4-10.2) mg/dL Arterial Blood Potassium (3.6-5.2) mmol/L Hep Bs Antibody Negative (NEGATIVE) Blood Type Blood Type Confirm Antibody Screen Crossmatch BBK History Checked Laboratory Results - last 24 hr 10/20/17 10/20/17 10/20/17 06:38 15:32 17:30 WBC 10.2 RBC 2.23 L Hgb 6.7 L Hct 20.9 L MCV 93.5 MCH 30.2 MCHC 32.3 L RDW 13.8 Plt Count 59 L MPV Neut % (Auto) Lymph % (Auto) Barry % (Auto) Eos % (Auto) Baso % (Auto) Neut # (Auto) Lymph # (Auto) Barry # (Auto) Eos # (Auto) Baso # (Auto) Neutrophils % (Manual) Lymphocytes % (Manual) Monocytes % (Manual) Toxic Granulation Platelet Estimate Hypochromasia (manual) Anisocytosis (manual) PT INR APTT Fibrinogen pCO2 pO2 HCO3 ABG pH ABG Total CO2 ABG O2 Saturation ABG Base Excess Michael Test ABG Potassium A-a O2 Difference Glucose Lactate Vent Mode Mechanical Rate FiO2 Tidal Volume PEEP Sodium Potassium Chloride Carbon Dioxide Anion Gap BUN Creatinine Est GFR ( Amer) Est GFR (Non-Af Amer) POC Glucose (mg/dL) 214 H Random Glucose Calcium Arterial Blood Potassium Hep Bs Antibody Negative Blood Type Blood Type Confirm Antibody Screen Crossmatch BBK History Checked 10/20/17 10/20/17 10/20/17 17:30 17:30 20:12 WBC RBC Hgb Hct MCV MCH MCHC RDW Plt Count MPV Neut % (Auto) Lymph % (Auto) Barry % (Auto) Eos % (Auto) Baso % (Auto) Neut # (Auto) Lymph # (Auto) Barry # (Auto) Eos # (Auto) Baso # (Auto) Neutrophils % (Manual) Lymphocytes % (Manual) Monocytes % (Manual) Toxic Granulation Platelet Estimate Hypochromasia (manual) Anisocytosis (manual) PT 20.1 H INR 1.8 H APTT 31.1 Fibrinogen pCO2 pO2 HCO3 ABG pH ABG Total CO2 ABG O2 Saturation ABG Base Excess Michael Test ABG Potassium A-a O2 Difference Glucose Lactate Vent Mode Mechanical Rate FiO2 Tidal Volume PEEP Sodium Potassium Chloride Carbon Dioxide Anion Gap BUN Creatinine Est GFR ( Amer) Est GFR (Non-Af Amer) POC Glucose (mg/dL) 217 H Random Glucose Calcium Arterial Blood Potassium Hep Bs Antibody Blood Type A POSITIVE Blood Type Confirm Antibody Screen Negative Crossmatch See Detail BBK History Checked No verified bt 10/20/17 10/21/17 10/21/17 23:58 04:20 04:20 WBC 8.9 RBC 3.18 L Hgb 9.3 L D Hct 28.3 L MCV 89.1 D MCH 29.2 MCHC 32.8 L RDW 15.7 H Plt Count 75 L MPV 9.2 Neut % (Auto) 92.5 H Lymph % (Auto) 6.0 L Barry % (Auto) 1.5 Eos % (Auto) 0.0 Baso % (Auto) 0.0 Neut # (Auto) 8.2 H Lymph # (Auto) 0.5 L Barry # (Auto) 0.1 Eos # (Auto) 0.0 Baso # (Auto) 0.0 Neutrophils % (Manual) 91 H Lymphocytes % (Manual) 7 L Monocytes % (Manual) 2 Toxic Granulation Present Platelet Estimate Decreased L Hypochromasia (manual) Slight Anisocytosis (manual) Slight PT INR APTT Fibrinogen pCO2 pO2 HCO3 ABG pH ABG Total CO2 ABG O2 Saturation ABG Base Excess Michael Test ABG Potassium A-a O2 Difference Glucose Lactate Vent Mode Mechanical Rate FiO2 Tidal Volume PEEP Sodium 135 Potassium 5.0 Chloride 103 Carbon Dioxide 15 L Anion Gap 22 H BUN 81 H Creatinine 3.0 H Est GFR ( Amer) 18 Est GFR (Non-Af Amer) 15 POC Glucose (mg/dL) Random Glucose 277 H Calcium 7.4 L Arterial Blood Potassium Hep Bs Antibody Blood Type Blood Type Confirm A POSITIVE Antibody Screen Crossmatch BBK History Checked 10/21/17 10/21/17 10/21/17 04:20 05:08 05:29 WBC RBC Hgb Hct MCV MCH MCHC RDW Plt Count MPV Neut % (Auto) Lymph % (Auto) Barry % (Auto) Eos % (Auto) Baso % (Auto) Neut # (Auto) Lymph # (Auto) Barry # (Auto) Eos # (Auto) Baso # (Auto) Neutrophils % (Manual) Lymphocytes % (Manual) Monocytes % (Manual) Toxic Granulation Platelet Estimate Hypochromasia (manual) Anisocytosis (manual) PT 16.2 H INR 1.5 H APTT 24.0 L D Fibrinogen 255 pCO2 35 pO2 119 H HCO3 18.0 L ABG pH 7.29 L ABG Total CO2 17.9 L ABG O2 Saturation 98.9 H ABG Base Excess -8.9 L Michael Test Yes ABG Potassium 4.9 A-a O2 Difference 265.0 Glucose 295 H Lactate 3.1 H Vent Mode A/c Mechanical Rate 14 FiO2 60.0 Tidal Volume 400 PEEP 5 Sodium 132.0 Potassium Chloride 101.0 Carbon Dioxide Anion Gap BUN Creatinine Est GFR ( Amer) Est GFR (Non-Af Amer) POC Glucose (mg/dL) 253 H Random Glucose Calcium Arterial Blood Potassium 4.9 Hep Bs Antibody Blood Type Blood Type Confirm Antibody Screen Crossmatch BBK History Checked 10/21/17 11:15 WBC RBC Hgb Hct MCV MCH MCHC RDW Plt Count MPV Neut % (Auto) Lymph % (Auto) Barry % (Auto) Eos % (Auto) Baso % (Auto) Neut # (Auto) Lymph # (Auto) Barry # (Auto) Eos # (Auto) Baso # (Auto) Neutrophils % (Manual) Lymphocytes % (Manual) Monocytes % (Manual) Toxic Granulation Platelet Estimate Hypochromasia (manual) Anisocytosis (manual) PT INR APTT Fibrinogen pCO2 pO2 HCO3 ABG pH ABG Total CO2 ABG O2 Saturation ABG Base Excess Michael Test ABG Potassium A-a O2 Difference Glucose Lactate Vent Mode Mechanical Rate FiO2 Tidal Volume PEEP Sodium Potassium Chloride Carbon Dioxide Anion Gap BUN Creatinine Est GFR ( Amer) Est GFR (Non-Af Amer) POC Glucose (mg/dL) 205 H Random Glucose Calcium Arterial Blood Potassium Hep Bs Antibody Blood Type Blood Type Confirm Antibody Screen Crossmatch BBK History Checked Critical Care Progress Note - Nutrition Nutrition: Nutrition Category Date Time Status NPO Diet [DIET] Diets 10/12/17 Breakfast Active Attending/Attestation - Attestation I have personally seen and examined this patient.: Yes I have fully participated in the care of the patient.: Yes I have reviewed all pertinent clinical information: Yes Notes (Text): 10/21/17 15:34 I have seen and examined the patient. Medical records, lab studies, and imaging were reviewed by me and a management plan was formulated on multidisciplinary rounds with resident Dr. Mascorro. I agree with their above documented assessment and plan. Patient is not improving clinically. Her lungs are still opacified bilaterally and diffusely. No longer in ARDS as paO2/Fio2 much improved. She is now off of pressor with albumin drip. Renal function not improving and dialysis not improving pulmonary mechanics, she is still failing PS trials. Will contiue to dialyze for two more days. Spoke with family, that trach placement would be a bad option for this patient because care home she will most likely not recover. She is an 87yo F. in acute oliguric renal failure with a high mortality risk. They are ok with terminal extubation and comfort care if there is no significant clinical improvement by Wednesday. Critical Care Time 35 minutes. Multi-disciplinary rounds were performed with house staff, nursing, speech therapy, respiratory therapy, pharmacy and nutrition with integrated input from the primary team/attending and other consulting services. The documented time is cumulative and includes review of patient data/exams/labs/chart review and examination of the patient on rounds and throughout the day; time is exclusive of any procedures or teaching time.
[2017-10-21 11:00] LABS: HYPOCHROMIC SLIGHT; TOXIC GRANULATION PRESENT
--- NOTE | 2017-10-21 11:13 | RAD ---
PROCEDURE: CHEST RADIOGRAPH, 1 VIEW HISTORY: intubated COMPARISON: None available. FINDINGS: In situ ETT, tip of which lies approximately 3.65 cm above the emmanuel. In situ NGT, the tip of which lies left upper quadrant of the abdomen near the left hemidiaphragm. LUNGS: Diffuse bilateral infiltrates could represent pulmonary edema -CHF and/or pneumonia. PLEURA: Suspect small bilateral effusions. No pneumothorax CARDIOVASCULAR: Normal. OSSEOUS STRUCTURES: No significant abnormalities. VISUALIZED UPPER ABDOMEN: Normal. OTHER FINDINGS: None. IMPRESSION: ETT and NGT as above. Diffuse bilateral infiltrates could represent pulmonary edema -CHF and/or pneumonia. Suspect small bilateral effusions
[2017-10-21] MEDS: Azithromycin 500 MG in Sodium Chloride 0.9% 250 ML IVPB SCH (12:39)
[2017-10-21] MEDS: Albumin Human 25% (12.5 gm/50 ml) IV SCH ×4 (13:20→15:30)
--- NOTE | 2017-10-21 14:51 | PN ---
DATE: SUBJECTIVE: The patient off Dobutrex. She is on FiO2 of 40%, sedated on a vent. PHYSICAL EXAMINATION: VITAL SIGNS: Blood pressure 102/43, heart rate 82, temperature 98.2, and respirations 19. HEENT: Pale conjunctivae. CHEST: Bilateral rhonchi. HEART: S1 and S2 regular. EXTREMITIES: Trace leg edema. LABORATORY DATA: Today's hemoglobin and hematocrit are 9.3 and 28.3, white count 8.9, and platelet count 75,000. Today's INR is 1.5. Today's BUN and creatinine are 81 and 3.0. Glucose is 277. Today's chest x-ray report, diffuse bilateral infiltrate could represent pulmonary edema/CHF and/or pneumonia, suspect small bilateral pleural effusions. ASSESSMENT: 1. Respiratory failure. 2. Improved hypotension. 3. Acute renal failure requiring hemodialysis. 4. Anemia, thrombocytopenia. 5. Borderline troponin elevation. RECOMMENDATIONS: Continue current IV Zithromax and IV meropenem. Continue Synthroid 50 mcg daily. Continue Zyvox 300 mg intravenously q. 12 hours. Continue Lipitor 20 mg once a day. Mitchell Hollis MD
--- NOTE | 2017-10-21 18:55 | CP.PCM.PN ---
Subjective - Date & Time of Evaluation Date of Evaluation: 10/21/17 Time of Evaluation: 12:40 - Subjective Subjective: F/U PNA, Influenza A Intubated , sedated Objective - Vital Signs/Intake and Output Vital Signs (last 24 hours): Temp Pulse Resp BP Pulse Ox 97.1 F L 89 20 128/52 L 94 L 10/21/17 16:00 10/21/17 18:00 10/21/17 18:00 10/21/17 18:00 10/21/17 18:00 Intake and Output: 10/21/17 10/21/17 06:59 18:59 Intake Total 2073 940 Output Total 100 0 Balance 1972 -1109 - Medications Medications: Current Medications Acetaminophen (Tylenol 325mg Tab) 975 mg PO ONCE PRN PRN Reason: Fever >100.4 F Atorvastatin Calcium (Lipitor) 20 mg PO DAILY [facility] Last Admin: 10/21/17 09:26 Dose: 20 mg Haloperidol Lactate (Haldol) 1 mg IVP Q6 PRN PRN Reason: Agitation Meropenem 500 mg/ Sodium (Chloride) 100 mls @ 100 mls/hr IVPB Q12 [facility] PRN Reason: Protocol Last Admin: 10/21/17 09:26 Dose: 100 mls/hr Linezolid (Zyvox 600mg/300ml D5w) 600 mg in 300 mls @ 300 mls/hr IVPB Q12 [facility] PRN Reason: Protocol Last Admin: 10/21/17 10:37 Dose: 300 mls/hr Azithromycin 500 mg/ Sodium (Chloride) 250 mls @ 250 mls/hr IVPB DAILY [facility] PRN Reason: Protocol Last Admin: 10/21/17 12:39 Dose: 250 mls/hr Insulin Human Lispro (Humalog) 0 units SC ACHS [facility] PRN Reason: Protocol Last Admin: 10/21/17 12:37 Dose: 2 units Ipratropium [place] (Atrovent) 0.5 mg IH RQ6 [facility] Last Admin: 10/21/17 13:29 Dose: 0.5 mg Levalbuterol HCl (Xopenex) 0.63 mg INH RQ8 [facility] Last Admin: 10/21/17 08:31 Dose: 0.63 mg Levothyroxine Sodium (Synthroid) 50 mcg PO DAILY@0630 [facility] Last Admin: 10/21/17 06:20 Dose: 50 mcg Metoclopramide HCl (Reglan) 10 mg IVP Q8 [facility] Last Admin: 10/21/17 16:27 Dose: 10 mg Pantoprazole Sodium (Protonix Inj) 40 mg IVP Q12H [facility] Last Admin: 10/21/17 09:27 Dose: 40 mg - Labs Labs: 10/21/17 04:20 10/21/17 04:20 PT 16.2 Seconds (9.8-13.1) H 10/21/17 04:20 INR 1.5 (0.9-1.2) H 10/21/17 04:20 APTT 24.0 Seconds (25.6-37.1) L D 10/21/17 04:20 - Constitutional Appears: Chronically Ill - Head Exam Head Exam: NORMAL INSPECTION - Eye Exam Eye Exam: PERRL - ENT Exam Additional comments: Intubated - Neck Exam Neck Exam: Normal Inspection - Respiratory Exam Respiratory Exam: Decreased Breath Sounds (at bases) - Cardiovascular Exam Cardiovascular Exam: REGULAR RHYTHM - GI/Abdominal Exam GI & Abdominal Exam: Soft, Normal Bowel Sounds - Extremities Exam Extremities Exam: Pedal Edema - Back Exam Back Exam: NORMAL INSPECTION - Neurological Exam Additional comments: Sedated, intubated - Psychiatric Exam Additional comments: Sedated - Skin Skin Exam: Warm Assessment and Plan (1) Pneumonia Status: Acute (2) Influenza A Status: Acute (3) Respiratory failure Status: Acute (4) Sepsis Status: Acute (5) Anemia Status: Acute (6) NAHOMI (acute kidney injury) Status: Acute - Assessment and Plan (Free Text) Plan: continue Xopenex , Atrovent, Zithromax , Merren and rest of treatment, transfused yesterday PRBC , Hgb 9.3 , prognosis poor , discussed with Patient' s family, continue Dialysis , for Tracheoostomy nedxt Wednesday. ICU Time: 40 min.
[2017-10-22 05:34] LABS: ABG ALLEN TEST YES; ARTERIAL BLOOD GAS HCO3 21.6 mmol/L (21-28); ARTERIAL BLOOD GAS O2 SAT 96.8 % (95-98); ARTERIAL BLOOD GAS PCO2 34 mm/Hg (35-45); ARTERIAL BLOOD GAS PH 7.38 (7.35-7.45); ARTERIAL BLOOD GAS PO2 71 mm/Hg (80-100); ARTERIAL BLOOD GAS TCO2 21.1 mmol/L (22-28)
[2017-10-22 05:39] LABS: ALBUMIN 3.1 g/dL (3.5-5.0); CALCIUM 8.4 mg/dL (8.4-10.2)
[2017-10-22 06:03] LABS: BASO % 0.1 % (0.0-2.0); EOS % 0.1 % (0.0-4.0); HEMOGLOBIN 9.2 g/dL (12.0-16.0); LYMPH # 0.6 K/uL (1.0-4.3); MEAN CELL VOLUME 88.1 fl (81.0-99.0); MEAN CORPUSCULAR HEMOGLOBIN 28.8 pg (27.0-31.0); MEAN CORPUSCULAR HGB CONC 32.7 g/dL (33.0-37.0); MEAN PLATELET VOLUME 9.3 fl (7.2-11.7); MONO # 0.3 K/uL (0.0-0.8); MONO % 2.6 % (0.0-10.0); NEUT # 11.3 K/uL (1.8-7.0); NEUT % 92.2 % (50.0-75.0); NRBC % 0.1 % (0.0-0.0); RBC 3.19 Mil/uL (3.80-5.20); RED CELL DISTRIBUTION WIDTH 15.6 % (11.5-14.5); WHITE BLOOD COUNT 12.3 K/uL (4.8-10.8)
[2017-10-22] MEDS: Levothyroxine 50 MCG TAB PO SCH (06:15)
--- NOTE | 2017-10-22 07:50 | CP.CCUPN ---
<Heidi Mascorro - Last Filed: 10/22/17 11:50> CCU Subjective - Physician Review Subjective (Free Text): 10/22/17 87 y/o F /with PMHX of HTN, HYpercholesterolemia, DM admitted with persistent cough, chest congestion, fevers for 2 days found to be Influenza positive with superimposed multilobar pneumonia. Patient remains intubated on no sedation since yesterday. ABG done today on FiO2 40 %, showed PaO2 71, O2 sat 96.8 %. Now patient is ON PRVC AC set 14 TV 400, 99- 100 % on FiO2 40 % PEEP 10. Patient still oliguric ,output overnight was 75 ml/12 hours. No on vasopressors or propofol. Had dialysis yesterday. 2 L were removed as per dialysis nurse. Patient received albumin 5% drip at 50 ml/hr yesterday during dialysis. BP stable during dialysis. Patient tolerated dialysis well yesterday. Patient was seen and examined with horticultural manager attending this morning.I & O reviewed. Still oliguric. As per Nephro repeat dialysis today, and tomorrow. 10/22/17 10:57 10/22/17 11:50 Critical Care Time Spent (in minutes): 35 CCU Objective - Vital Signs / Intake & Output Vital Signs (Last 4 hours): Vital Signs Temp Pulse Resp BP Pulse Ox 10/22/17 06:00 99 H 24 152/55 H 91 L 10/22/17 05:00 133 H 27 H 124/86 97 10/22/17 04:00 98.7 F 98 H 24 155/54 H 87 L Intake and Output (Last 8hrs): Intake & Output 10/21/17 10/22/17 10/22/17 22:59 06:59 14:59 Intake Total 585 340 Output Total 2050 75 Balance -1465 265 Intake: IV 10 Intake, Piggyback 400 Tube Feeding 145 310 Free Water Flush 30 30 Output: Gastric Amount 0 Stomach 0 Urine 50 75 Urethral (Jamil) 50 75 Ultrafiltrate 1999 - Physical Exam Head: Positive for: Atraumatic, Normocephalic. Negative for: Tenderness, Contusion Pupils: Positive for: PERRL. Negative for: Sluggish, Non-Reactive Extroacular Muscles: Negative for: Gaze Palsy, Entrapment Conjunctiva: Positive for: Normal. Negative for: Injected, Icteric Mouth: Positive for: Moist Mucous Membranes Pharnyx: Positive for: Normal Nose (External): Positive for: Atraumatic Nose (Internal): Positive for: Normal Inspection Neck: Positive for: Trachea Midline. Negative for: Meningeal Signs, MIDLINE TENDERNESS, Paraspinal Tenderness, JVD, Lymphadenopathy, Bruit, Other Respiratory/Chest: Positive for: Clear to Auscultation, Good Air Exchange. Negative for: Respiratory Distress, Accessory Muscle Use, Wheezes, Rales, Rhonchi, Tender to Palpation Cardiovascular: Positive for: Regular Rate and Rhythm, Normal S1, S2, Peripheal Pulses Present. Negative for: Murmurs, Irregular Rhythm, Tachycardic Abdomen: Positive for: Normal Bowel Sounds. Negative for: Tenderness, Distention, Peritoneal Signs Upper Extremity: Positive for: Normal Inspection, Edema (no pitting edema in upper/lower extremities), NORMAL PULSES, Capillary Refill < 2s. Negative for: Cyanosis Lower Extremity: Positive for: Edema (in lower extremities), NORMAL PULSES, Capillary Refill < 2 s Neurological: Positive for: Other (sedated on mechanical ventilation) Skin: Positive for: Warm, Dry, Pale Psychiatric: Positive for: Other (Intubated and sedated). Negative for: Alert, Oriented x 3 - Medications Active Medications: Active Medications Generic Name Dose Route Start Last Admin Trade Name Freq PRN Reason Stop Dose Admin Acetaminophen 975 mg 10/11/17 20:15 Tylenol 325mg Tab PO ONCE PRN Fever >100.4 F Atorvastatin Calcium 20 mg 10/12/17 09:00 10/21/17 09:26 Lipitor PO 20 mg DAILY MI Administration Haloperidol Lactate 1 mg 10/11/17 20:15 Haldol IVP Q6 PRN Agitation Meropenem 500 mg/ Sodium 100 mls @ 100 mls/hr 10/15/17 10:30 10/21/17 20:09 Chloride IVPB 100 mls/hr Q12 MI Administration Protocol Azithromycin 500 mg/ Sodium 250 mls @ 250 mls/hr 10/18/17 12:45 10/21/17 12: 39 Chloride IVPB 250 mls/hr DAILY MI Administration Protocol Insulin Human Lispro 0 units 10/11/17 22:00 10/21/17 21:16 Humalog SC Not Given ACHS MI Protocol Ipratropium [place] 0.5 mg 10/18/17 14:00 10/21/17 23:35 Atrovent IH 0.5 mg RQ6 MI Administration Levalbuterol HCl 0.63 mg 10/12/17 00:00 10/21/17 23:37 Xopenex INH 0.63 mg RQ8 MI Administration Levothyroxine Sodium 50 mcg 10/12/17 06:30 10/22/17 06:15 Synthroid PO 50 mcg DAILY@0630 MI Administration Metoclopramide HCl 10 mg 10/19/17 01:00 10/22/17 01:11 Reglan IVP 10 mg Q8 MI Administration Pantoprazole Sodium 40 mg 10/19/17 22:00 10/21/17 21:15 Protonix Inj IVP 40 mg Q12H MI Administration - Patient Studies Lab Studies: Lab Studies 10/22/17 10/22/17 10/22/17 Range/Units 05:51 05:30 04:20 WBC (4.8-10.8) K/uL RBC (3.80-5.20) Mil/uL Hgb (12.0-16.0) g/dL Hct (34.0-47.0) % MCV (81.0-99.0) fl MCH (27.0-31.0) pg MCHC (33.0-37.0) g/dL RDW (11.5-14.5) % Plt Count (130-400) K/uL MPV (7.2-11.7) fl Neut % (Auto) (50.0-75.0) % Lymph % (Auto) (20.0-40.0) % Gregory % (Auto) (0.0-10.0) % Eos % (Auto) (0.0-4.0) % Baso % (Auto) (0.0-2.0) % Neut # (Auto) (1.8-7.0) K/uL Lymph # (Auto) (1.0-4.3) K/uL Gregory # (Auto) (0.0-0.8) K/uL Eos # (Auto) (0.0-0.7) K/uL Baso # (Auto) (0.0-0.2) K/uL Neutrophils % (Manual) (42-75) % Lymphocytes % (Manual) (20-50) % Monocytes % (Manual) (0-10) % Toxic Granulation Platelet Estimate (NORMAL) Hypochromasia (manual) Anisocytosis (manual) pCO2 34 L (35-45) mm/Hg pO2 71 L (80-100) mm/Hg HCO3 21.6 (21-28) mmol/L ABG pH 7.38 (7.35-7.45) ABG Total CO2 21.1 L (22-28) mmol/L ABG O2 Saturation 96.8 (95-98) % ABG Base Excess -4.2 L (-2.0-3.0) mmol/L Michael Test Yes ABG Potassium 3.6 (3.6-5.2) mmol/L A-a O2 Difference 172.0 mm/Hg Glucose 181 H (65-105) mg/dL Lactate 3.5 H (0.7-2.1) mmol/L Vent Mode A/c Mechanical Rate 14 FiO2 40.0 % Tidal Volume 400 PEEP 10 Sodium 136.0 139 (132-148) mmol/l Potassium 3.7 (3.6-5.0) MMOL/L Chloride 102.0 102 (98-107) mmol/L Carbon Dioxide 19 L (22-30) mmol/L Anion Gap 22 H (10-20) BUN 64 H (7-17) mg/dl Creatinine 2.5 H (0.7-1.2) mg/dl Est GFR ( Amer) 22 Est GFR (Non-Af Amer) 18 POC Glucose (mg/dL) 171 H (65-110) mg/dL Random Glucose 167 H (65-105) mg/dL Calcium 8.4 (8.4-10.2) mg/dL Total Bilirubin 2.1 H (0.2-1.3) mg/dl AST 137 H D (14-36) U/L ALT 72 H (9-52) U/L Alkaline Phosphatase 224 H (38-126) U/L Total Protein 6.3 (6.3-8.2) G/DL Albumin 3.1 L D (3.5-5.0) g/dL Globulin 3.2 (2.2-3.9) gm/dL Albumin/Globulin Ratio 1.0 (1.0-2.1) Arterial Blood Potassium 3.6 (3.6-5.2) mmol/L Hepatitis C Antibody (NEGATIVE) 10/22/17 10/21/17 10/21/17 Range/Units 04:20 20:50 16:36 WBC 12.3 H (4.8-10.8) K/uL RBC 3.19 L (3.80-5.20) Mil/uL Hgb 9.2 L (12.0-16.0) g/dL Hct 28.1 L (34.0-47.0) % MCV 88.1 (81.0-99.0) fl MCH 28.8 (27.0-31.0) pg MCHC 32.7 L (33.0-37.0) g/dL RDW 15.6 H (11.5-14.5) % Plt Count 44 L D (130-400) K/uL MPV 9.3 (7.2-11.7) fl Neut % (Auto) 92.2 H (50.0-75.0) % Lymph % (Auto) 5.0 L (20.0-40.0) % Gregory % (Auto) 2.6 (0.0-10.0) % Eos % (Auto) 0.1 (0.0-4.0) % Baso % (Auto) 0.1 (0.0-2.0) % Neut # (Auto) 11.3 H (1.8-7.0) K/uL Lymph # (Auto) 0.6 L (1.0-4.3) K/uL Gregory # (Auto) 0.3 (0.0-0.8) K/uL Eos # (Auto) 0.0 (0.0-0.7) K/uL Baso # (Auto) 0.0 (0.0-0.2) K/uL Neutrophils % (Manual) (42-75) % Lymphocytes % (Manual) (20-50) % Monocytes % (Manual) (0-10) % Toxic Granulation Platelet Estimate (NORMAL) Hypochromasia (manual) Anisocytosis (manual) pCO2 (35-45) mm/Hg pO2 (80-100) mm/Hg HCO3 (21-28) mmol/L ABG pH (7.35-7.45) ABG Total CO2 (22-28) mmol/L ABG O2 Saturation (95-98) % ABG Base Excess (-2.0-3.0) mmol/L Michael Test ABG Potassium (3.6-5.2) mmol/L A-a O2 Difference mm/Hg Glucose (65-105) mg/dL Lactate (0.7-2.1) mmol/L Vent Mode Mechanical Rate FiO2 % Tidal Volume PEEP Sodium (132-148) mmol/l Potassium (3.6-5.0) MMOL/L Chloride (98-107) mmol/L Carbon Dioxide (22-30) mmol/L Anion Gap (10-20) BUN (7-17) mg/dl Creatinine (0.7-1.2) mg/dl Est GFR ( Amer) Est GFR (Non-Af Amer) POC Glucose (mg/dL) 201 H 175 H (65-110) mg/dL Random Glucose (65-105) mg/dL Calcium (8.4-10.2) mg/dL Total Bilirubin (0.2-1.3) mg/dl AST (14-36) U/L ALT (9-52) U/L Alkaline Phosphatase (38-126) U/L Total Protein (6.3-8.2) G/DL Albumin (3.5-5.0) g/dL Globulin (2.2-3.9) gm/dL Albumin/Globulin Ratio (1.0-2.1) Arterial Blood Potassium (3.6-5.2) mmol/L Hepatitis C Antibody (NEGATIVE) 10/21/17 10/21/17 10/21/17 Range/Units 14:38 11:15 04:20 WBC (4.8-10.8) K/uL RBC (3.80-5.20) Mil/uL Hgb (12.0-16.0) g/dL Hct (34.0-47.0) % MCV (81.0-99.0) fl MCH (27.0-31.0) pg MCHC (33.0-37.0) g/dL RDW (11.5-14.5) % Plt Count (130-400) K/uL MPV (7.2-11.7) fl Neut % (Auto) (50.0-75.0) % Lymph % (Auto) (20.0-40.0) % Gregory % (Auto) (0.0-10.0) % Eos % (Auto) (0.0-4.0) % Baso % (Auto) (0.0-2.0) % Neut # (Auto) (1.8-7.0) K/uL Lymph # (Auto) (1.0-4.3) K/uL Gregory # (Auto) (0.0-0.8) K/uL Eos # (Auto) (0.0-0.7) K/uL Baso # (Auto) (0.0-0.2) K/uL Neutrophils % (Manual) 91 H (42-75) % Lymphocytes % (Manual) 7 L (20-50) % Monocytes % (Manual) 2 (0-10) % Toxic Granulation Present Platelet Estimate Decreased L (NORMAL) Hypochromasia (manual) Slight Anisocytosis (manual) Slight pCO2 (35-45) mm/Hg pO2 (80-100) mm/Hg HCO3 (21-28) mmol/L ABG pH (7.35-7.45) ABG Total CO2 (22-28) mmol/L ABG O2 Saturation (95-98) % ABG Base Excess (-2.0-3.0) mmol/L Michael Test ABG Potassium (3.6-5.2) mmol/L A-a O2 Difference mm/Hg Glucose (65-105) mg/dL Lactate (0.7-2.1) mmol/L Vent Mode Mechanical Rate FiO2 % Tidal Volume PEEP Sodium (132-148) mmol/l Potassium (3.6-5.0) MMOL/L Chloride (98-107) mmol/L Carbon Dioxide (22-30) mmol/L Anion Gap (10-20) BUN (7-17) mg/dl Creatinine (0.7-1.2) mg/dl Est GFR ( Amer) Est GFR (Non-Af Amer) POC Glucose (mg/dL) 205 H (65-110) mg/dL Random Glucose (65-105) mg/dL Calcium (8.4-10.2) mg/dL Total Bilirubin (0.2-1.3) mg/dl AST (14-36) U/L ALT (9-52) U/L Alkaline Phosphatase (38-126) U/L Total Protein (6.3-8.2) G/DL Albumin (3.5-5.0) g/dL Globulin (2.2-3.9) gm/dL Albumin/Globulin Ratio (1.0-2.1) Arterial Blood Potassium (3.6-5.2) mmol/L Hepatitis C Antibody Negative (NEGATIVE) Laboratory Results - last 24 hr 10/21/17 10/21/17 10/21/17 04:20 11:15 14:38 WBC RBC Hgb Hct MCV MCH MCHC RDW Plt Count MPV Neut % (Auto) Lymph % (Auto) Gregory % (Auto) Eos % (Auto) Baso % (Auto) Neut # (Auto) Lymph # (Auto) Gregory # (Auto) Eos # (Auto) Baso # (Auto) Neutrophils % (Manual) 91 H Lymphocytes % (Manual) 7 L Monocytes % (Manual) 2 Toxic Granulation Present Platelet Estimate Decreased L Hypochromasia (manual) Slight Anisocytosis (manual) Slight pCO2 pO2 HCO3 ABG pH ABG Total CO2 ABG O2 Saturation ABG Base Excess Michael Test ABG Potassium A-a O2 Difference Glucose Lactate Vent Mode Mechanical Rate FiO2 Tidal Volume PEEP Sodium Potassium Chloride Carbon Dioxide Anion Gap BUN Creatinine Est GFR ( Amer) Est GFR (Non-Af Amer) POC Glucose (mg/dL) 205 H Random Glucose Calcium Total Bilirubin AST ALT Alkaline Phosphatase Total Protein Albumin Globulin Albumin/Globulin Ratio Arterial Blood Potassium Hepatitis C Antibody Negative 10/21/17 10/21/17 10/22/17 16:36 20:50 04:20 WBC 12.3 H RBC 3.19 L Hgb 9.2 L Hct 28.1 L MCV 88.1 MCH 28.8 MCHC 32.7 L RDW 15.6 H Plt Count 44 L D MPV 9.3 Neut % (Auto) 92.2 H Lymph % (Auto) 5.0 L Gregory % (Auto) 2.6 Eos % (Auto) 0.1 Baso % (Auto) 0.1 Neut # (Auto) 11.3 H Lymph # (Auto) 0.6 L Gregory # (Auto) 0.3 Eos # (Auto) 0.0 Baso # (Auto) 0.0 Neutrophils % (Manual) Lymphocytes % (Manual) Monocytes % (Manual) Toxic Granulation Platelet Estimate Hypochromasia (manual) Anisocytosis (manual) pCO2 pO2 HCO3 ABG pH ABG Total CO2 ABG O2 Saturation ABG Base Excess Michael Test ABG Potassium A-a O2 Difference Glucose Lactate Vent Mode Mechanical Rate FiO2 Tidal Volume PEEP Sodium Potassium Chloride Carbon Dioxide Anion Gap BUN Creatinine Est GFR ( Amer) Est GFR (Non-Af Amer) POC Glucose (mg/dL) 175 H 201 H Random Glucose Calcium Total Bilirubin AST ALT Alkaline Phosphatase Total Protein Albumin Globulin Albumin/Globulin Ratio Arterial Blood Potassium Hepatitis C Antibody 10/22/17 10/22/17 10/22/17 04:20 05:30 05:51 WBC RBC Hgb Hct MCV MCH MCHC RDW Plt Count MPV Neut % (Auto) Lymph % (Auto) Gregory % (Auto) Eos % (Auto) Baso % (Auto) Neut # (Auto) Lymph # (Auto) Gregory # (Auto) Eos # (Auto) Baso # (Auto) Neutrophils % (Manual) Lymphocytes % (Manual) Monocytes % (Manual) Toxic Granulation Platelet Estimate Hypochromasia (manual) Anisocytosis (manual) pCO2 34 L pO2 71 L HCO3 21.6 ABG pH 7.38 ABG Total CO2 21.1 L ABG O2 Saturation 96.8 ABG Base Excess -4.2 L Michael Test Yes ABG Potassium 3.6 A-a O2 Difference 172.0 Glucose 181 H Lactate 3.5 H Vent Mode A/c Mechanical Rate 14 FiO2 40.0 Tidal Volume 400 PEEP 10 Sodium 139 136.0 Potassium 3.7 Chloride 102 102.0 Carbon Dioxide 19 L Anion Gap 22 H BUN 64 H Creatinine 2.5 H Est GFR ( Amer) 22 Est GFR (Non-Af Amer) 18 POC Glucose (mg/dL) 171 H Random Glucose 167 H Calcium 8.4 Total Bilirubin 2.1 H AST 137 H D ALT 72 H Alkaline Phosphatase 224 H Total Protein 6.3 Albumin 3.1 L D Globulin 3.2 Albumin/Globulin Ratio 1.0 Arterial Blood Potassium 3.6 Hepatitis C Antibody Fingerstick Blood Sugar Results: 171 Review of Systems - Review of Systems Review of Systems: unable to assess because intubation Critical Care Progress Note - Nutrition Nutrition: Nutrition Category Date Time Status NPO Diet [DIET] Diets 10/12/17 Breakfast Active Assessment/Plan - Assessment and Plan (Free Text) Plan: Sepsis -SIRS plus Pneumonia -no significant changes at PE and x ray -afebrile, mild leukocytosis today after 2 days with WBC wnl, s/p steroids IV -lactate 3.1 on blood gas -DC Linezolid on 10/21/17( completed 10 days) -Azithromycin 500 mg IVPB daily day # 11 ( started on oct 12) -Meropenen 500 mg Q12 day #7 ( started on 10/15/17) -Procalcitonin on 10/15/17 was 1.65/mild elevated -antibiotics as per ID -negative blood, sputum and urine cultures -ID on consult, f/u recs -Pulmonology on consult, f/u recs. Acute hypoxemic respiratory failure secondary Pneumonia in superimposed Influenza infection -s/p post-endotracheal tube placement on 10/12/17 and Mechanical ventilation -PRVC AC 14 TV 400 PEEP 10, FiO2 increased today morning from 40 to 50 % because patient was desat 88-91 % on FiO2 40 % -c/w antibiotics as per ID -cultures from bronchoscopy specimen so far negative, pending final mycobacterial culture -c/w chest PT and suctioning -c/w nebulizer treatment -f/u CBC, ABG, CXR in AM -CXR reported no significant interval change -Family is considering comfort if not significant improvement is noted. Next of kin and other family members declined Tracheostomy at this time. -ID on consult, f/u recs -Pulmonology on consult, f/u recs. Acute Renal Failure -oliguric/ 75 ml/12 hours -likely 2/2 sepsis and hypotension -elevated BUN/Cr 64/2.5 -normal potassium -c/w dialysis as per nephro ( today and wednesday) -will infuse albumin cont during dialysis to support BP if needed -f/u BUN/Cr -Nephrology on consult, recs are appreciated Anemia -acute on chronic -could be multifactorial -stable H/H after transfusion. H/H: 9.2/28.1 -s/p transfusion of 2 units of PRBC -no evidence of active bleeding at this time -f/u H/H -DC heparin -held aspirin for now Hypertension -SBP: 120s-150s for more than 24 hours -h/o HTN vs NAHOMI -no on BP meds for now, because was hypotensive -will infuse albumin cont during dialysis to support BP if needed -s/p albumin infusion during dilaysis yerday -f/u BP and consider levophed to support BP Thrombocytopenia -Platelets trending down -DC Heparin SC .Low Platelets /44 today. -pending HIT antibodies -no evidence of bleeding at this time -H/H stable after transfusion Diabetes mellitus type 2 -c/w glycemic control Diet -no evidence of bloody secration from OG tube during intermittent suction as per nurse report -c/w Nepro by OG tube/ continuous @ 40 ml/hr Prophylaxis -stress ulcer prophylaxis with protonix 40 mg IV,frequency was increased to Q12 -DVT prophylaxis SCDs for now because low platelets, and episode of bloody secretions in OG tube -pressure ulcers precautions - Date & Time Date: 10/22/17 Time: 08:30 <Shoaib Higuera - Last Filed: 10/22/17 14:13> CCU Objective - Vital Signs / Intake & Output Vital Signs (Last 4 hours): Vital Signs Temp Pulse Resp BP Pulse Ox 10/22/17 12:00 98.8 F 95 H 13 132/48 L 94 L Intake and Output (Last 8hrs): Intake & Output 10/21/17 10/22/17 10/22/17 22:59 06:59 14:59 Intake Total 585 340 730 Output Total 0 75 40 Balance -1465 265 690 Intake: IV 10 Intake, Piggyback 400 350 Tube Feeding 145 310 280 Free Water Flush 30 30 100 Output: Gastric Amount 0 Stomach 0 Urine 50 75 40 Urethral (Jamil) 50 75 40 Ultrafiltrate 2000 - Medications Active Medications: Active Medications Generic Name Dose Route Start Last Admin Trade Name Freq PRN Reason Stop Dose Admin Acetaminophen 975 mg 10/11/17 20:15 Tylenol 325mg Tab PO ONCE PRN Fever >100.4 F Atorvastatin Calcium 20 mg 10/12/17 09:00 10/22/17 08:49 Lipitor PO 20 mg DAILY MI Administration Haloperidol Lactate 1 mg 10/11/17 20:15 Haldol IVP Q6 PRN Agitation Meropenem 500 mg/ Sodium 100 mls @ 100 mls/hr 10/15/17 10:30 10/22/17 08:49 Chloride IVPB 100 mls/hr Q12 MI Administration Protocol Azithromycin 500 mg/ Sodium 250 mls @ 250 mls/hr 10/18/17 12:45 10/22/17 08: 51 Chloride IVPB 250 mls/hr DAILY MI Administration Protocol Insulin Human Lispro 0 units 10/11/17 22:00 10/22/17 12:19 Humalog SC 2 units ACHS MI Administration Protocol Ipratropium [place] 0.5 mg 10/18/17 14:00 10/22/17 14:11 Atrovent IH 0.5 mg RQ6 MI Administration Levalbuterol HCl 0.63 mg 10/12/17 00:00 10/22/17 08:56 Xopenex INH 0.63 mg RQ8 MI Administration Levothyroxine Sodium 50 mcg 10/12/17 06:30 10/22/17 06:15 Synthroid PO 50 mcg DAILY@0630 MI Administration Metoclopramide HCl 10 mg 10/19/17 01:00 10/22/17 08:51 Reglan IVP 10 mg Q8 MI Administration Pantoprazole Sodium 40 mg 10/19/17 22:00 10/22/17 09:00 Protonix Inj IVP 40 mg Q12H MI Administration - Patient Studies Lab Studies: Lab Studies 10/22/17 10/22/17 10/22/17 Range/Units 11:08 05:51 05:30 WBC (4.8-10.8) K/uL RBC (3.80-5.20) Mil/uL Hgb (12.0-16.0) g/dL Hct (34.0-47.0) % MCV (81.0-99.0) fl MCH (27.0-31.0) pg MCHC (33.0-37.0) g/dL RDW (11.5-14.5) % Plt Count (130-400) K/uL MPV (7.2-11.7) fl Neut % (Auto) (50.0-75.0) % Lymph % (Auto) (20.0-40.0) % Gregory % (Auto) (0.0-10.0) % Eos % (Auto) (0.0-4.0) % Baso % (Auto) (0.0-2.0) % Neut # (Auto) (1.8-7.0) K/uL Lymph # (Auto) (1.0-4.3) K/uL Gregory # (Auto) (0.0-0.8) K/uL Eos # (Auto) (0.0-0.7) K/uL Baso # (Auto) (0.0-0.2) K/uL Total Counted Neutrophils % (Manual) Band Neutrophils % Lymphocytes % (Manual) Reactive Lymphs % Monocytes % (Manual) Eosinophils % (Manual) Basophils % (Manual) Metamyelocytes % Myelocytes % Promyelocytes % Blast Cells % Plasma Cell % (Manual) Nucleated RBC % Hypersegmented Polys Smudge Cells Toxic Granulation Dohle Bodies Erlinda Rods Platelet Estimate Plt Clumps, EDTA Large Platelets Giant Platelets RBC Morphology Polychromasia Hypochromasia (manual) Poikilocytosis (manual Basophilic Stippling Anisocytosis (manual) Microcytosis (manual) Macrocytosis (manual) Spherocytes Sickle Cells Target Cells Tear Drop Cells Ovalocytes Stomatocytes Helmet Cells [place] Bodies Nicolasa Cells Acanthocytes (Spur) Rouleaux Schistocytes pCO2 34 L (35-45) mm/Hg pO2 71 L (80-100) mm/Hg HCO3 21.6 (21-28) mmol/L ABG pH 7.38 (7.35-7.45) ABG Total CO2 21.1 L (22-28) mmol/L ABG O2 Saturation 96.8 (95-98) % ABG Base Excess -4.2 L (-2.0-3.0) mmol/L Michael Test Yes ABG Potassium 3.6 (3.6-5.2) mmol/L A-a O2 Difference 172.0 mm/Hg Glucose 181 H (65-105) mg/dL Lactate 3.5 H (0.7-2.1) mmol/L Vent Mode A/c Mechanical Rate 14 FiO2 40.0 % Tidal Volume 400 PEEP 10 Sodium 136.0 (132-148) mmol/l Potassium (3.6-5.0) MMOL/L Chloride 102.0 (98-107) mmol/L Carbon Dioxide (22-30) mmol/L Anion Gap (10-20) BUN (7-17) mg/dl Creatinine (0.7-1.2) mg/dl Est GFR ( Amer) Est GFR (Non-Af Amer) POC Glucose (mg/dL) 204 H 171 H (65-110) mg/dL Random Glucose (65-105) mg/dL Calcium (8.4-10.2) mg/dL Total Bilirubin (0.2-1.3) mg/dl AST (14-36) U/L ALT (9-52) U/L Alkaline Phosphatase (38-126) U/L Total Protein (6.3-8.2) G/DL Albumin (3.5-5.0) g/dL Globulin (2.2-3.9) gm/dL Albumin/Globulin Ratio (1.0-2.1) Arterial Blood Potassium 3.6 (3.6-5.2) mmol/L Hepatitis C Antibody (NEGATIVE) 10/22/17 10/22/17 10/21/17 Range/Units 04:20 04:20 20:50 WBC 12.3 H (4.8-10.8) K/uL RBC 3.19 L (3.80-5.20) Mil/uL Hgb 9.2 L (12.0-16.0) g/dL Hct 28.1 L (34.0-47.0) % MCV 88.1 (81.0-99.0) fl MCH 28.8 (27.0-31.0) pg MCHC 32.7 L (33.0-37.0) g/dL RDW 15.6 H (11.5-14.5) % Plt Count 44 L D (130-400) K/uL MPV 9.3 (7.2-11.7) fl Neut % (Auto) 92.2 H (50.0-75.0) % Lymph % (Auto) 5.0 L (20.0-40.0) % Gregory % (Auto) 2.6 (0.0-10.0) % Eos % (Auto) 0.1 (0.0-4.0) % Baso % (Auto) 0.1 (0.0-2.0) % Neut # (Auto) 11.3 H (1.8-7.0) K/uL Lymph # (Auto) 0.6 L (1.0-4.3) K/uL Gregory # (Auto) 0.3 (0.0-0.8) K/uL Eos # (Auto) 0.0 (0.0-0.7) K/uL Baso # (Auto) 0.0 (0.0-0.2) K/uL Total Counted Cancelled Neutrophils % (Manual) Cancelled Band Neutrophils % Cancelled Lymphocytes % (Manual) Cancelled Reactive Lymphs % Cancelled Monocytes % (Manual) Cancelled Eosinophils % (Manual) Cancelled Basophils % (Manual) Cancelled Metamyelocytes % Cancelled Myelocytes % Cancelled Promyelocytes % Cancelled Blast Cells % Cancelled Plasma Cell % (Manual) Cancelled Nucleated RBC % Cancelled Hypersegmented Polys Cancelled Smudge Cells Cancelled Toxic Granulation Cancelled Dohle Bodies Cancelled Erlinda Rods Cancelled Platelet Estimate Cancelled Plt Clumps, EDTA Cancelled Large Platelets Cancelled Giant Platelets Cancelled RBC Morphology Cancelled Polychromasia Cancelled Hypochromasia (manual) Cancelled Poikilocytosis (manual Cancelled Basophilic Stippling Cancelled Anisocytosis (manual) Cancelled Microcytosis (manual) Cancelled Macrocytosis (manual) Cancelled Spherocytes Cancelled Sickle Cells Cancelled Target Cells Cancelled Tear Drop Cells Cancelled Ovalocytes Cancelled Stomatocytes Cancelled Helmet Cells Cancelled [place]oy[place] Bodies Cancelled Golden Cells Cancelled Acanthocytes (Spur) Cancelled Rouleaux Cancelled Schistocytes Cancelled pCO2 (35-45) mm/Hg pO2 (80-100) mm/Hg HCO3 (21-28) mmol/L ABG pH (7.35-7.45) ABG Total CO2 (22-28) mmol/L ABG O2 Saturation (95-98) % ABG Base Excess (-2.0-3.0) mmol/L Michael Test ABG Potassium (3.6-5.2) mmol/L A-a O2 Difference mm/Hg Glucose (65-105) mg/dL Lactate (0.7-2.1) mmol/L Vent Mode Mechanical Rate FiO2 % Tidal Volume PEEP Sodium 139 (132-148) mmol/l Potassium 3.7 (3.6-5.0) MMOL/L Chloride 102 (98-107) mmol/L Carbon Dioxide 19 L (22-30) mmol/L Anion Gap 22 H (10-20) BUN 64 H (7-17) mg/dl Creatinine 2.5 H (0.7-1.2) mg/dl Est GFR ( Amer) 22 Est GFR (Non-Af Amer) 18 POC Glucose (mg/dL) 201 H (65-110) mg/dL Random Glucose 167 H (65-105) mg/dL Calcium 8.4 (8.4-10.2) mg/dL Total Bilirubin 2.1 H (0.2-1.3) mg/dl AST 137 H D (14-36) U/L ALT 72 H (9-52) U/L Alkaline Phosphatase 224 H (38-126) U/L Total Protein 6.3 (6.3-8.2) G/DL Albumin 3.1 L D (3.5-5.0) g/dL Globulin 3.2 (2.2-3.9) gm/dL Albumin/Globulin Ratio 1.0 (1.0-2.1) Arterial Blood Potassium (3.6-5.2) mmol/L Hepatitis C Antibody (NEGATIVE) 10/21/17 10/21/17 Range/Units 16:36 14:38 WBC (4.8-10.8) K/uL RBC (3.80-5.20) Mil/uL Hgb (12.0-16.0) g/dL Hct (34.0-47.0) % MCV (81.0-99.0) fl MCH (27.0-31.0) pg MCHC (33.0-37.0) g/dL RDW (11.5-14.5) % Plt Count (130-400) K/uL MPV (7.2-11.7) fl Neut % (Auto) (50.0-75.0) % Lymph % (Auto) (20.0-40.0) % Gregory % (Auto) (0.0-10.0) % Eos % (Auto) (0.0-4.0) % Baso % (Auto) (0.0-2.0) % Neut # (Auto) (1.8-7.0) K/uL Lymph # (Auto) (1.0-4.3) K/uL Gregory # (Auto) (0.0-0.8) K/uL Eos # (Auto) (0.0-0.7) K/uL Baso # (Auto) (0.0-0.2) K/uL Total Counted Neutrophils % (Manual) Band Neutrophils % Lymphocytes % (Manual) Reactive Lymphs % Monocytes % (Manual) Eosinophils % (Manual) Basophils % (Manual) Metamyelocytes % Myelocytes % Promyelocytes % Blast Cells % Plasma Cell % (Manual) Nucleated RBC % Hypersegmented Polys Smudge Cells Toxic Granulation Dohle Bodies Erlinda Rods Platelet Estimate Plt Clumps, EDTA Large Platelets Giant Platelets RBC Morphology Polychromasia Hypochromasia (manual) Poikilocytosis (manual Basophilic Stippling Anisocytosis (manual) Microcytosis (manual) Macrocytosis (manual) Spherocytes Sickle Cells Target Cells Tear Drop Cells Ovalocytes Stomatocytes Helmet Cells [place] Bodies Nicolasa Cells Acanthocytes (Spur) Rouleaux Schistocytes pCO2 (35-45) mm/Hg pO2 (80-100) mm/Hg HCO3 (21-28) mmol/L ABG pH (7.35-7.45) ABG Total CO2 (22-28) mmol/L ABG O2 Saturation (95-98) % ABG Base Excess (-2.0-3.0) mmol/L Michael Test ABG Potassium (3.6-5.2) mmol/L A-a O2 Difference mm/Hg Glucose (65-105) mg/dL Lactate (0.7-2.1) mmol/L Vent Mode Mechanical Rate FiO2 % Tidal Volume PEEP Sodium (132-148) mmol/l Potassium (3.6-5.0) MMOL/L Chloride (98-107) mmol/L Carbon Dioxide (22-30) mmol/L Anion Gap (10-20) BUN (7-17) mg/dl Creatinine (0.7-1.2) mg/dl Est GFR ( Amer) Est GFR (Non-Af Amer) POC Glucose (mg/dL) 175 H (65-110) mg/dL Random Glucose (65-105) mg/dL Calcium (8.4-10.2) mg/dL Total Bilirubin (0.2-1.3) mg/dl AST (14-36) U/L ALT (9-52) U/L Alkaline Phosphatase (38-126) U/L Total Protein (6.3-8.2) G/DL Albumin (3.5-5.0) g/dL Globulin (2.2-3.9) gm/dL Albumin/Globulin Ratio (1.0-2.1) Arterial Blood Potassium (3.6-5.2) mmol/L Hepatitis C Antibody Negative (NEGATIVE) Laboratory Results - last 24 hr 10/21/17 10/21/17 10/21/17 14:38 16:36 20:50 WBC RBC Hgb Hct MCV MCH MCHC RDW Plt Count MPV Neut % (Auto) Lymph % (Auto) Gregory % (Auto) Eos % (Auto) Baso % (Auto) Neut # (Auto) Lymph # (Auto) Gregory # (Auto) Eos # (Auto) Baso # (Auto) Total Counted Neutrophils % (Manual) Band Neutrophils % Lymphocytes % (Manual) Reactive Lymphs % Monocytes % (Manual) Eosinophils % (Manual) Basophils % (Manual) Metamyelocytes % Myelocytes % Promyelocytes % Blast Cells % Plasma Cell % (Manual) Nucleated RBC % Hypersegmented Polys Smudge Cells Toxic Granulation Dohle Bodies Erlinda Rods Platelet Estimate Plt Clumps, EDTA Large Platelets Giant Platelets RBC Morphology Polychromasia Hypochromasia (manual) Poikilocytosis (manual Basophilic Stippling Anisocytosis (manual) Microcytosis (manual) Macrocytosis (manual) Spherocytes Sickle Cells Target Cells Tear Drop Cells Ovalocytes Stomatocytes Helmet Cells [place] Bodies Nicolasa Cells Acanthocytes (Spur) Rouleaux Schistocytes pCO2 pO2 HCO3 ABG pH ABG Total CO2 ABG O2 Saturation ABG Base Excess Michael Test ABG Potassium A-a O2 Difference Glucose Lactate Vent Mode Mechanical Rate FiO2 Tidal Volume PEEP Sodium Potassium Chloride Carbon Dioxide Anion Gap BUN Creatinine Est GFR ( Amer) Est GFR (Non-Af Amer) POC Glucose (mg/dL) 175 H 201 H Random Glucose Calcium Total Bilirubin AST ALT Alkaline Phosphatase Total Protein Albumin Globulin Albumin/Globulin Ratio Arterial Blood Potassium Hepatitis C Antibody Negative 10/22/17 10/22/17 10/22/17 04:20 04:20 05:30 WBC 12.3 H RBC 3.19 L Hgb 9.2 L Hct 28.1 L MCV 88.1 MCH 28.8 MCHC 32.7 L RDW 15.6 H Plt Count 44 L D MPV 9.3 Neut % (Auto) 92.2 H Lymph % (Auto) 5.0 L Gregory % (Auto) 2.6 Eos % (Auto) 0.1 Baso % (Auto) 0.1 Neut # (Auto) 11.3 H Lymph # (Auto) 0.6 L Gregory # (Auto) 0.3 Eos # (Auto) 0.0 Baso # (Auto) 0.0 Total Counted Cancelled Neutrophils % (Manual) Cancelled Band Neutrophils % Cancelled Lymphocytes % (Manual) Cancelled Reactive Lymphs % Cancelled Monocytes % (Manual) Cancelled Eosinophils % (Manual) Cancelled Basophils % (Manual) Cancelled Metamyelocytes % Cancelled Myelocytes % Cancelled Promyelocytes % Cancelled Blast Cells % Cancelled Plasma Cell % (Manual) Cancelled Nucleated RBC % Cancelled Hypersegmented Polys Cancelled Smudge Cells Cancelled Toxic Granulation Cancelled Dohle Bodies Cancelled Erlinda Rods Cancelled Platelet Estimate Cancelled Plt Clumps, EDTA Cancelled Large Platelets Cancelled Giant Platelets Cancelled RBC Morphology Cancelled Polychromasia Cancelled Hypochromasia (manual) Cancelled Poikilocytosis (manual Cancelled Basophilic Stippling Cancelled Anisocytosis (manual) Cancelled Microcytosis (manual) Cancelled Macrocytosis (manual) Cancelled Spherocytes Cancelled Sickle Cells Cancelled Target Cells Cancelled Tear Drop Cells Cancelled Ovalocytes Cancelled Stomatocytes Cancelled Helmet Cells Cancelled [place]oy[place] Bodies Cancelled Golden Cells Cancelled Acanthocytes (Spur) Cancelled Rouleaux Cancelled Schistocytes Cancelled pCO2 34 L pO2 71 L HCO3 21.6 ABG pH 7.38 ABG Total CO2 21.1 L ABG O2 Saturation 96.8 ABG Base Excess -4.2 L Michael Test Yes ABG Potassium 3.6 A-a O2 Difference 172.0 Glucose 181 H Lactate 3.5 H Vent Mode A/c Mechanical Rate 14 FiO2 40.0 Tidal Volume 400 PEEP 10 Sodium 139 136.0 Potassium 3.7 Chloride 102 102.0 Carbon Dioxide 19 L Anion Gap 22 H BUN 64 H Creatinine 2.5 H Est GFR ( Amer) 22 Est GFR (Non-Af Amer) 18 POC Glucose (mg/dL) Random Glucose 167 H Calcium 8.4 Total Bilirubin 2.1 H AST 137 H D ALT 72 H Alkaline Phosphatase 224 H Total Protein 6.3 Albumin 3.1 L D Globulin 3.2 Albumin/Globulin Ratio 1.0 Arterial Blood Potassium 3.6 Hepatitis C Antibody 10/22/17 10/22/17 05:51 11:08 WBC RBC Hgb Hct MCV MCH MCHC RDW Plt Count MPV Neut % (Auto) Lymph % (Auto) Gregory % (Auto) Eos % (Auto) Baso % (Auto) Neut # (Auto) Lymph # (Auto) Gregory # (Auto) Eos # (Auto) Baso # (Auto) Total Counted Neutrophils % (Manual) Band Neutrophils % Lymphocytes % (Manual) Reactive Lymphs % Monocytes % (Manual) Eosinophils % (Manual) Basophils % (Manual) Metamyelocytes % Myelocytes % Promyelocytes % Blast Cells % Plasma Cell % (Manual) Nucleated RBC % Hypersegmented Polys Smudge Cells Toxic Granulation Dohle Bodies Erlinda Rods Platelet Estimate Plt Clumps, EDTA Large Platelets Giant Platelets RBC Morphology Polychromasia Hypochromasia (manual) Poikilocytosis (manual Basophilic Stippling Anisocytosis (manual) Microcytosis (manual) Macrocytosis (manual) Spherocytes Sickle Cells Target Cells Tear Drop Cells Ovalocytes Stomatocytes Helmet Cells [place] Bodies Golden Cells Acanthocytes (Spur) Rouleaux Schistocytes pCO2 pO2 HCO3 ABG pH ABG Total CO2 ABG O2 Saturation ABG Base Excess Michael Test ABG Potassium A-a O2 Difference Glucose Lactate Vent Mode Mechanical Rate FiO2 Tidal Volume PEEP Sodium Potassium Chloride Carbon Dioxide Anion Gap BUN Creatinine Est GFR ( Amer) Est GFR (Non-Af Amer) POC Glucose (mg/dL) 171 H 204 H Random Glucose Calcium Total Bilirubin AST ALT Alkaline Phosphatase Total Protein Albumin Globulin Albumin/Globulin Ratio Arterial Blood Potassium Hepatitis C Antibody Critical Care Progress Note - Nutrition Nutrition: Nutrition Category Date Time Status NPO Diet [DIET] Diets 10/12/17 Breakfast Active Attending/Attestation - Attestation I have personally seen and examined this patient.: Yes I have fully participated in the care of the patient.: Yes I have reviewed all pertinent clinical information: Yes Notes (Text): 10/22/17 14:13 I have seen and examined the patient. Medical records, lab studies, and imaging were reviewed by me and a management plan was formulated on multidisciplinary rounds with resident Dr. Mascorro. I agree with their above documented assessment and plan. Patient is not improving clinically. Her lungs are still opacified bilaterally and diffusely. No longer in ARDS as paO2/Fio2 much improved. She is now off of pressor with albumin drip. Renal function not improving and dialysis not improving pulmonary mechanics, she is still failing PS trials. Will contiue to dialyze for one more day. Spoke with family, that trach placement would be a bad option for this patient because senior care she will most likely not recover. She is an 87yo F. in acute oliguric renal failure with a high mortality risk. They are ok with terminal extubation and comfort care if there is no significant clinical improvement by Wednesday. The intention is to NOT TRACH/PEG. Critical Care Time 35 minutes. Multi-disciplinary rounds were performed with house staff, nursing, speech therapy, respiratory therapy, pharmacy and nutrition with integrated input from the primary team/attending and other consulting services. The documented time is cumulative and includes review of patient data/exams/labs/chart review and examination of the patient on rounds and throughout the day; time is exclusive of any procedures or teaching time.
[2017-10-22] MEDS: Meropenem 500 MG in Sodium Chloride 0.9% 100 ML IVPB SCH ×2 (08:49→20:43)
[2017-10-22] MEDS: Azithromycin 500 MG in Sodium Chloride 0.9% 250 ML IVPB SCH (08:51)
[2017-10-22] MEDS: Levalbuterol 0.63 MG/3 ML Inhal Soln UD INH SCH ×2 (08:56→15:45)
[2017-10-22] MEDS: Ipratropium 0.02% Inhal Soln (0.5 mg/2.5 ml) UD IH SCH ×3 (08:57→19:11)
--- NOTE | 2017-10-22 09:06 | RAD ---
PROCEDURE: CHEST RADIOGRAPH, 1 VIEW HISTORY: intubated/mech ventilation COMPARISON: Chest radiograph dated 10/21/2017 FINDINGS: LUNGS: Stable chronic prominence of the bilateral interstitial markings with superimposed pulmonary vascular congestion. PLEURA: Small bilateral pleural effusions not excluded. No appreciable pneumothorax. CARDIOVASCULAR: Atherosclerotic aortic calcifications. Cardiomediastinal silhouette stably enlarged. OSSEOUS STRUCTURES: Unchanged. VISUALIZED UPPER ABDOMEN: Normal. OTHER FINDINGS: Peritracheal and enteric tubes, unchanged. IMPRESSION: No significant interval change.
--- NOTE | 2017-10-22 11:31 | CP.PCM.PN ---
Subjective - Date & Time of Evaluation Date of Evaluation: 10/22/17 Time of Evaluation: 11:29 - Subjective Subjective: remained intubated vital signes better and BP better completed second HD yesterday . schaduled to have HD shortely poor urine output Objective - Vital Signs/Intake and Output Vital Signs (last 24 hours): Temp Pulse Resp BP Pulse Ox 99.1 F 94 H 23 145/50 L 99 10/22/17 08:00 10/22/17 10:00 10/22/17 10:00 10/22/17 10:00 10/22/17 10:00 Intake and Output: 10/22/17 10/22/17 06:59 18:59 Intake Total 875 220 Output Total 75 40 Balance 800 180 - Medications Medications: Current Medications Acetaminophen (Tylenol 325mg Tab) 975 mg PO ONCE PRN PRN Reason: Fever >100.4 F Atorvastatin Calcium (Lipitor) 20 mg PO DAILY [facility] Last Admin: 10/22/17 08:49 Dose: 20 mg Haloperidol Lactate (Haldol) 1 mg IVP Q6 PRN PRN Reason: Agitation Meropenem 500 mg/ Sodium (Chloride) 100 mls @ 100 mls/hr IVPB Q12 [place] PRN Reason: Protocol Last Admin: 10/22/17 08:49 Dose: 100 mls/hr Azithromycin 500 mg/ Sodium (Chloride) 250 mls @ 250 mls/hr IVPB DAILY [place] PRN Reason: Protocol Last Admin: 10/22/17 08:51 Dose: 250 mls/hr Insulin Human Lispro (Humalog) 0 units SC ACHS [facility] PRN Reason: Protocol Last Admin: 10/21/17 21:16 Dose: Not Given Ipratropium [place] (Atrovent) 0.5 mg IH RQ6 [facility] Last Admin: 10/22/17 08:57 Dose: 0.5 mg Levalbuterol HCl (Xopenex) 0.63 mg INH RQ8 [facility] Last Admin: 10/22/17 08:56 Dose: 0.63 mg Levothyroxine Sodium (Synthroid) 50 mcg PO DAILY@0630 [facility] Last Admin: 10/22/17 06:15 Dose: 50 mcg Metoclopramide HCl (Reglan) 10 mg IVP Q8 [facility] Last Admin: 10/22/17 08:51 Dose: 10 mg Pantoprazole Sodium (Protonix Inj) 40 mg IVP Q12H [place] Last Admin: 10/22/17 09:00 Dose: 40 mg - Labs Labs: 10/22/17 04:20 10/22/17 04:20 PT 16.2 Seconds (9.8-13.1) H 10/21/17 04:20 INR 1.5 (0.9-1.2) H 10/21/17 04:20 APTT 24.0 Seconds (25.6-37.1) L D 10/21/17 04:20 - Constitutional Appears: No Acute Distress - ENT Exam ENT Exam: Mucous Membranes Moist - Respiratory Exam Respiratory Exam: Clear to Ausculation Bilateral - Cardiovascular Exam Cardiovascular Exam: absent: Gallop, JVD, Rubs - GI/Abdominal Exam GI & Abdominal Exam: Soft, Normal Bowel Sounds - Extremities Exam Extremities Exam: absent: Calf Tenderness - Back Exam Back Exam: absent: CVA tenderness (L), CVA tenderness (R) - Neurological Exam Neurological Exam: Altered - Skin Skin Exam: absent: Cyanosis Assessment and Plan (1) Influenza A Status: Acute (2) Pneumonia Status: Acute (3) Respiratory failure Status: Acute (4) Sepsis Status: Acute (5) NAHOMI (acute kidney injury) Assessment & Plan: oliguric ARF receiving HD daily volume overloaded better on HD dialysis order in place with UF 2000 cc today respiratory failure on vent pneumonia on ATBX as per renal dose per primary team. Status: Acute
[2017-10-22] MEDS: Insulin Lispro (humaLOG) 100 Units/ml Inj SC SCH ×3 (12:19→21:42)
--- NOTE | 2017-10-22 12:20 | CP.PCM.PN ---
Subjective - Date & Time of Evaluation Date of Evaluation: 10/22/17 Time of Evaluation: 09:00 - Subjective Subjective: no fever intubated NAD Objective - Vital Signs/Intake and Output Vital Signs (last 24 hours): Temp Pulse Resp BP Pulse Ox 98.8 F 95 H 13 132/48 L 94 L 10/22/17 12:00 10/22/17 12:00 10/22/17 12:00 10/22/17 12:00 10/22/17 12:00 Intake and Output: 10/22/17 10/22/17 06:59 18:59 Intake Total 875 220 Output Total 75 40 Balance 800 180 - Medications Medications: Current Medications Acetaminophen (Tylenol 325mg Tab) 975 mg PO ONCE PRN PRN Reason: Fever >100.4 F Atorvastatin Calcium (Lipitor) 20 mg PO DAILY [facility] Last Admin: 10/22/17 08:49 Dose: 20 mg Haloperidol Lactate (Haldol) 1 mg IVP Q6 PRN PRN Reason: Agitation Meropenem 500 mg/ Sodium (Chloride) 100 mls @ 100 mls/hr IVPB Q12 [place] PRN Reason: Protocol Last Admin: 10/22/17 08:49 Dose: 100 mls/hr Azithromycin 500 mg/ Sodium (Chloride) 250 mls @ 250 mls/hr IVPB DAILY [place] PRN Reason: Protocol Last Admin: 10/22/17 08:51 Dose: 250 mls/hr Insulin Human Lispro (Humalog) 0 units SC ACHS [facility] PRN Reason: Protocol Last Admin: 10/21/17 21:16 Dose: Not Given Ipratropium [place] (Atrovent) 0.5 mg IH RQ6 [facility] Last Admin: 10/22/17 08:57 Dose: 0.5 mg Levalbuterol HCl (Xopenex) 0.63 mg INH RQ8 [facility] Last Admin: 10/22/17 08:56 Dose: 0.63 mg Levothyroxine Sodium (Synthroid) 50 mcg PO DAILY@0630 [facility] Last Admin: 10/22/17 06:15 Dose: 50 mcg Metoclopramide HCl (Reglan) 10 mg IVP Q8 [facility] Last Admin: 10/22/17 08:51 Dose: 10 mg Pantoprazole Sodium (Protonix Inj) 40 mg IVP Q12H [facility] Last Admin: 10/22/17 09:00 Dose: 40 mg - Labs Labs: 10/22/17 04:20 10/22/17 04:20 PT 16.2 Seconds (9.8-13.1) H 10/21/17 04:20 INR 1.5 (0.9-1.2) H 10/21/17 04:20 APTT 24.0 Seconds (25.6-37.1) L D 10/21/17 04:20 - Constitutional Appears: No Acute Distress, Confused, Cachectic, Chronically Ill - Head Exam Head Exam: NORMOCEPHALIC - Eye Exam Eye Exam: absent: Scleral icterus - ENT Exam ENT Exam: Mucous Membranes Dry - Neck Exam Neck Exam: absent: Lymphadenopathy - Respiratory Exam Respiratory Exam: Decreased Breath Sounds, Rhonchi - Cardiovascular Exam Cardiovascular Exam: REGULAR RHYTHM, +S1, +S2 - GI/Abdominal Exam GI & Abdominal Exam: Distended, Soft - Rectal Exam Rectal Exam: Deferred - Exam Exam: NORMAL INSPECTION - Extremities Exam Extremities Exam: absent: Pedal Edema - Back Exam Back Exam: absent: CVA tenderness (L), CVA tenderness (R) - Neurological Exam Neurological Exam: Altered - Psychiatric Exam Psychiatric exam: Depressed - Skin Skin Exam: Dry Assessment and Plan (1) Influenza Status: Acute (2) Pneumonia Status: Acute (3) Sepsis Status: Acute (4) UTI (urinary tract infection) Status: Acute - Assessment and Plan (Free Text) Assessment: 87 y/o F /with PMHX of HTN, HYpercholesterolemia, DM admitted with persistent cough, chest congestion, fevers for 2 days found to be Influenza positive with superimposed multilobar pneumonia. Patient remains intubated on no sedation since yesterday. ABG done today on FiO2 40 %, showed PaO2 71, O2 sat 96.8 %. Now patient is ON PRVC AC set 14 TV 400, 99- 100 % on FiO2 40 % PEEP 10. Patient still oliguric Not on vasopressors or propofol. Had dialysis yesterday. 2 L were removed as per dialysis nurse. Patient received albumin 5% drip at 50 ml/hr yesterday during dialysis. cont iv antibiotics for 14 days
--- NOTE | 2017-10-22 16:36 | CP.PCM.PN ---
Subjective - Date & Time of Evaluation Date of Evaluation: 10/22/17 Time of Evaluation: 11:50 - Subjective Subjective: F/U PNA / Influenza A off sedation , intubated Objective - Vital Signs/Intake and Output Vital Signs (last 24 hours): Temp Pulse Resp BP Pulse Ox 99.0 F 102 H 10 L 143/48 L 97 10/22/17 16:00 10/22/17 16:00 10/22/17 16:00 10/22/17 16:00 10/22/17 16:00 Intake and Output: 10/22/17 10/22/17 06:59 18:59 Intake Total 875 910 Output Total 75 50 Balance 800 860 - Medications Medications: Current Medications Acetaminophen (Tylenol 325mg Tab) 975 mg PO ONCE PRN PRN Reason: Fever >100.4 F Atorvastatin Calcium (Lipitor) 20 mg PO DAILY [facility] Last Admin: 10/22/17 08:49 Dose: 20 mg Haloperidol Lactate (Haldol) 1 mg IVP Q6 PRN PRN Reason: Agitation Meropenem 500 mg/ Sodium (Chloride) 100 mls @ 100 mls/hr IVPB Q12 [place] PRN Reason: Protocol Last Admin: 10/22/17 08:49 Dose: 100 mls/hr Azithromycin 500 mg/ Sodium (Chloride) 250 mls @ 250 mls/hr IVPB DAILY [place] PRN Reason: Protocol Last Admin: 10/22/17 08:51 Dose: 250 mls/hr Insulin Human Lispro (Humalog) 0 units SC ACHS [place] PRN Reason: Protocol Last Admin: 10/22/17 12:19 Dose: 2 units Ipratropium [place] (Atrovent) 0.5 mg IH RQ6 [facility] Last Admin: 10/22/17 14:11 Dose: 0.5 mg Levalbuterol HCl (Xopenex) 0.63 mg INH RQ8 [facility] Last Admin: 10/22/17 15:45 Dose: 0.63 mg Levothyroxine Sodium (Synthroid) 50 mcg PO DAILY@0630 [facility] Last Admin: 10/22/17 06:15 Dose: 50 mcg Metoclopramide HCl (Reglan) 10 mg IVP Q8 [facility] Last Admin: 10/22/17 16:20 Dose: 10 mg Pantoprazole Sodium (Protonix Inj) 40 mg IVP Q12H [facility] Last Admin: 10/22/17 09:00 Dose: 40 mg - Labs Labs: 10/22/17 04:20 10/22/17 04:20 PT 16.2 Seconds (9.8-13.1) H 10/21/17 04:20 INR 1.5 (0.9-1.2) H 10/21/17 04:20 APTT 24.0 Seconds (25.6-37.1) L D 10/21/17 04:20 - Constitutional Appears: Chronically Ill - Head Exam Head Exam: NORMAL INSPECTION - Eye Exam Eye Exam: PERRL - ENT Exam Additional comments: Intubated - Neck Exam Neck Exam: Normal Inspection - Respiratory Exam Respiratory Exam: Decreased Breath Sounds (at bases) - Cardiovascular Exam Cardiovascular Exam: REGULAR RHYTHM - GI/Abdominal Exam GI & Abdominal Exam: Soft, Normal Bowel Sounds - Extremities Exam Extremities Exam: Pedal Edema - Back Exam Additional comments: L-S lesion - Neurological Exam Additional comments: Intubated, off sedation , minimal response to tactil stimuli - Psychiatric Exam Additional comments: Intubated, calm - Skin Skin Exam: Warm Assessment and Plan (1) Pneumonia Status: Acute (2) Influenza A Status: Acute (3) Respiratory failure Status: Acute (4) Sepsis Status: Acute (5) Anemia Status: Acute (6) NAHOMI (acute kidney injury) Status: Acute - Assessment and Plan (Free Text) Plan: continue Merren , Xopenex , Atrovent , dialysis and rest of treatment , discussed with Patient's family poor prognosis ICU Time: 38 min.
--- NOTE | 2017-10-22 18:57 | PN ---
DATE: SUBJECTIVE: The patient is still on a mechanical ventilator. She is off Levophed infusion. No reported ventricular arrhythmia. PHYSICAL EXAMINATION: VITAL SIGNS: Blood pressure 156/46, heart rate 106, temperature 98.3, and respirations 23. HEENT: Pale conjunctivae. CHEST: Bilateral rhonchi. HEART: S1 and S2 regular. ABDOMEN: Soft. EXTREMITIES: No edema. LABORATORY DATA: Hemoglobin and hematocrit 9.1 and 28.1, white count 12.3, and platelet count 44,000. SMA-7; sodium 139, potassium 3.7, chloride 102, CO2 of 19, glucose 167, BUN 64, and creatinine 2.5. Today's chest x-ray reports with no significant interval changes. ASSESSMENT: 1. Respiratory failure. 2. Bilateral pneumonia. 3. Acute renal insufficiency. 4. Worsening thrombocytopenia. 5. Uncontrolled diabetes mellitus. 6. Urinary tract infection. RECOMMENDATIONS: Continue current IV Zithromax and IV meropenem. Continue Xopenex inhaler. Continue Synthroid at 50 mcg once a day. Obtain heparin antibody testing, obtain heparin antibody testing. Obtain heparin antibody . Mitchell Hollis MD
[2017-10-23] MEDS: Levalbuterol 0.63 MG/3 ML Inhal Soln UD INH SCH ×4 (00:24→15:56)
[2017-10-23] MEDS: Ipratropium 0.02% Inhal Soln (0.5 mg/2.5 ml) UD IH SCH ×4 (00:24→20:35)
--- NOTE | 2017-10-23 01:29 | CP.PCM.PN ---
Subjective - Date & Time of Evaluation Date of Evaluation: 10/21/17 Time of Evaluation: 15:30 Objective - Vital Signs/Intake and Output Vital Signs (last 24 hours): Temp Pulse Resp BP Pulse Ox 99.8 F H 104 H 26 H 113/40 L 93 L 10/22/17 20:00 10/22/17 20:00 10/22/17 20:00 10/22/17 20:00 10/22/17 20:00 Intake and Output: 10/22/17 10/23/17 18:59 06:59 Intake Total 990 280 Output Total 50 0 Balance 940 280 - Medications Medications: Current Medications Acetaminophen (Tylenol 325mg Tab) 975 mg PO ONCE PRN PRN Reason: Fever >100.4 F Atorvastatin Calcium (Lipitor) 20 mg PO DAILY [facility] Last Admin: 10/22/17 08:49 Dose: 20 mg Haloperidol Lactate (Haldol) 1 mg IVP Q6 PRN PRN Reason: Agitation Meropenem 500 mg/ Sodium (Chloride) 100 mls @ 100 mls/hr IVPB Q12 [place] PRN Reason: Protocol Last Admin: 10/22/17 20:43 Dose: 100 mls/hr Azithromycin 500 mg/ Sodium (Chloride) 250 mls @ 250 mls/hr IVPB DAILY [place] PRN Reason: Protocol Last Admin: 10/22/17 08:51 Dose: 250 mls/hr Insulin Human Lispro (Humalog) 0 units SC ACHS [place] PRN Reason: Protocol Last Admin: 10/22/17 21:42 Dose: Not Given Ipratropium [place] (Atrovent) 0.5 mg IH RQ6 [facility] Last Admin: 10/23/17 00:24 Dose: 0.5 mg Levalbuterol HCl (Xopenex) 0.63 mg INH RQ8 [facility] Last Admin: 10/23/17 00:24 Dose: 0.63 mg Levothyroxine Sodium (Synthroid) 50 mcg PO DAILY@0630 [facility] Last Admin: 10/22/17 06:15 Dose: 50 mcg Metoclopramide HCl (Reglan) 10 mg IVP Q8 [facility] Last Admin: 10/22/17 16:20 Dose: 10 mg Pantoprazole Sodium (Protonix Inj) 40 mg IVP Q12H [facility] Last Admin: 10/22/17 21:42 Dose: 40 mg - Labs Labs: 10/22/17 04:20 10/22/17 04:20 PT 16.2 Seconds (9.8-13.1) H 10/21/17 04:20 INR 1.5 (0.9-1.2) H 10/21/17 04:20 APTT 24.0 Seconds (25.6-37.1) L D 10/21/17 04:20
--- NOTE | 2017-10-23 01:30 | CP.PCM.PN ---
<Gunjan Ramírez B - Last Filed: 10/23/17 01:29> Subjective - Date & Time of Evaluation Date of Evaluation: 10/22/17 Time of Evaluation: 15:30 Objective - Vital Signs/Intake and Output Vital Signs (last 24 hours): Temp Pulse Resp BP Pulse Ox 99.8 F H 104 H 26 H 113/40 L 93 L 10/22/17 20:00 10/22/17 20:00 10/22/17 20:00 10/22/17 20:00 10/22/17 20:00 Intake and Output: 10/22/17 10/23/17 18:59 06:59 Intake Total 990 280 Output Total 50 0 Balance 940 280 - Medications Medications: Current Medications Acetaminophen (Tylenol 325mg Tab) 975 mg PO ONCE PRN PRN Reason: Fever >100.4 F Atorvastatin Calcium (Lipitor) 20 mg PO DAILY [facility] Last Admin: 10/22/17 08:49 Dose: 20 mg Haloperidol Lactate (Haldol) 1 mg IVP Q6 PRN PRN Reason: Agitation Meropenem 500 mg/ Sodium (Chloride) 100 mls @ 100 mls/hr IVPB Q12 MI PRN Reason: Protocol Last Admin: 10/22/17 20:43 Dose: 100 mls/hr Azithromycin 500 mg/ Sodium (Chloride) 250 mls @ 250 mls/hr IVPB DAILY MI PRN Reason: Protocol Last Admin: 10/22/17 08:51 Dose: 250 mls/hr Insulin Human Lispro (Humalog) 0 units SC ACHS MI PRN Reason: Protocol Last Admin: 10/22/17 21:42 Dose: Not Given Ipratropium [place] (Atrovent) 0.5 mg IH RQ6 [facility] Last Admin: 10/23/17 00:24 Dose: 0.5 mg Levalbuterol HCl (Xopenex) 0.63 mg INH RQ8 [facility] Last Admin: 10/23/17 00:24 Dose: 0.63 mg Levothyroxine Sodium (Synthroid) 50 mcg PO DAILY@0630 [facility] Last Admin: 10/22/17 06:15 Dose: 50 mcg Metoclopramide HCl (Reglan) 10 mg IVP Q8 [facility] Last Admin: 10/22/17 16:20 Dose: 10 mg Pantoprazole Sodium (Protonix Inj) 40 mg IVP Q12H [facility] Last Admin: 10/22/17 21:42 Dose: 40 mg - Labs Labs: 10/22/17 04:20 10/22/17 04:20 PT 16.2 Seconds (9.8-13.1) H 10/21/17 04:20 INR 1.5 (0.9-1.2) H 10/21/17 04:20 APTT 24.0 Seconds (25.6-37.1) L D 10/21/17 04:20 <Adriano Christy - Last Filed: 10/24/17 16:15> Subjective - Subjective Subjective: intubated , off sadation. Objective - Vital Signs/Intake and Output Vital Signs (last 24 hours): Temp Pulse Resp BP Pulse Ox 98.1 F 89 20 100/35 L 100 10/24/17 16:00 10/24/17 16:00 10/24/17 16:00 10/24/17 16:00 10/24/17 16:00 Intake and Output: 10/24/17 10/24/17 06:59 18:59 Intake Total 140 270 Output Total 85 2500 Balance 55 -2230 - Medications Medications: Current Medications Acetaminophen (Tylenol 325mg Tab) 975 mg PO ONCE PRN PRN Reason: Fever >100.4 F Atorvastatin Calcium (Lipitor) 20 mg PO DAILY [facility] Last Admin: 10/24/17 09:50 Dose: 20 mg Epoetin Crispin (Procrit) 4,000 unit IV MWF [facility] Haloperidol Lactate (Haldol) 1 mg IVP Q6 PRN PRN Reason: Agitation Meropenem 500 mg/ Sodium (Chloride) 100 mls @ 100 mls/hr IVPB Q12 MI PRN Reason: Protocol Last Admin: 10/24/17 15:13 Dose: 100 mls/hr Insulin Human Lispro (Humalog) 0 units SC ACHS MI PRN Reason: Protocol Last Admin: 10/24/17 11:41 Dose: 2 units Ipratropium [place] (Atrovent) 0.5 mg IH RQ6 [facility] Last Admin: 10/24/17 08:05 Dose: 0.5 mg Levalbuterol HCl (Xopenex) 0.63 mg INH RQ8 [facility] Last Admin: 10/24/17 15:46 Dose: Not Given Levothyroxine Sodium (Synthroid) 50 mcg PO DAILY@0630 [facility] Last Admin: 10/24/17 06:18 Dose: 50 mcg Metoclopramide HCl (Reglan) 10 mg IVP Q8 [facility] Last Admin: 10/24/17 09:31 Dose: 10 mg Pantoprazole Sodium (Protonix Inj) 40 mg IVP Q12H [facility] Last Admin: 10/24/17 09:31 Dose: 40 mg - Labs Labs: 10/24/17 04:00 10/24/17 05:28 PT 16.2 Seconds (9.8-13.1) H 10/21/17 04:20 INR 1.5 (0.9-1.2) H 10/21/17 04:20 APTT 24.0 Seconds (25.6-37.1) L D 10/21/17 04:20 - Constitutional Appears: Chronically Ill - Head Exam Head Exam: NORMAL INSPECTION - Eye Exam Eye Exam: PERRL - ENT Exam Additional comments: intubated, OGT - Neck Exam Neck Exam: Normal Inspection - Respiratory Exam Respiratory Exam: Decreased Breath Sounds Additional comments: at bases - Cardiovascular Exam Cardiovascular Exam: REGULAR RHYTHM - GI/Abdominal Exam GI & Abdominal Exam: Soft, Normal Bowel Sounds - Extremities Exam Extremities Exam: Pedal Edema - Back Exam Additional comments: open lesion - Neurological Exam Additional comments: response to tactil stimuli - Skin Skin Exam: Warm Assessment and Plan (1) Pneumonia Status: Acute (2) Influenza A Status: Acute (3) Respiratory failure Status: Acute (4) Sepsis Status: Acute (5) Anemia Status: Acute (6) NAHOMI (acute kidney injury) Status: Acute - Assessment and Plan (Free Text) Plan: off dedation , continue ventilatory support , Merren , Xopenex , Atrovent , Dialysis , discussed with Patient,s family poor prognosis.
[2017-10-23 04:15] LABS: ABG ALLEN TEST YES; ARTERIAL BLOOD GAS HCO3 24.2 mmol/L (21-28); ARTERIAL BLOOD GAS O2 SAT 98.8 % (95-98); ARTERIAL BLOOD GAS PCO2 36 mm/Hg (35-45); ARTERIAL BLOOD GAS PH 7.42 (7.35-7.45); ARTERIAL BLOOD GAS PO2 93 mm/Hg (80-100); ARTERIAL BLOOD GAS TCO2 24.5 mmol/L (22-28)
[2017-10-23 05:32] LABS: BASO # 0.1 K/uL (0.0-0.2); BASO % 0.4 % (0.0-2.0); EOS # 0.2 K/uL (0.0-0.7); EOS % 1.4 % (0.0-4.0); HEMOGLOBIN 8.9 g/dL (12.0-16.0); LYMPH # 0.9 K/uL (1.0-4.3); LYMPH % 5.1 % (20.0-40.0); MEAN CELL VOLUME 88.2 fl (81.0-99.0); MEAN CORPUSCULAR HEMOGLOBIN 29.7 pg (27.0-31.0); MEAN CORPUSCULAR HGB CONC 33.7 g/dL (33.0-37.0); MEAN PLATELET VOLUME 9.3 fl (7.2-11.7); MONO # 0.3 K/uL (0.0-0.8); MONO % 1.9 % (0.0-10.0); NEUT # 15.5 K/uL (1.8-7.0); NEUT % 91.2 % (50.0-75.0); NRBC % 0.1 % (0.0-0.0); RBC 2.99 Mil/uL (3.80-5.20); RED CELL DISTRIBUTION WIDTH 15.7 % (11.5-14.5)
[2017-10-23 05:35] LABS: PLATELET COUNT 24 K/uL (130-400)
[2017-10-23] MEDS: Levothyroxine 50 MCG TAB PO SCH (05:50)
[2017-10-23 05:53] LABS: ALB/GLOB RATIO 0.8 (1.0-2.1); ALBUMIN 2.5 g/dL (3.5-5.0); CALCIUM 7.8 mg/dL (8.4-10.2)
[2017-10-23] MEDS ORDERED: Potassium Chloride 20 mEq ER Tab PO ONE (06:56)
[2017-10-23] MEDS ORDERED: Potassium Chloride 20 mEq/15 ml LIQ UD PO ONE (07:44)
--- NOTE | 2017-10-23 07:56 | CP.CCUPN ---
CCU Subjective - Physician Review Events Since Last Encounter (Free Text): 10/23/17 07:49 Clinically deteriorating, intubated, has pulm edema, oliguric NAHOMI, HD was started yesterday , worsening thrombocytopenia, no signs of bleeding, now has afib, which is new, not on any pressor , BP holding systolic around 100. CCU Objective - Vital Signs / Intake & Output Vital Signs (Last 4 hours): Vital Signs Temp Pulse Resp BP Pulse Ox 10/23/17 06:00 123 H 25 H 117/39 L 95 10/23/17 04:00 99.8 F H 102 H 20 106/31 L 97 Intake and Output (Last 8hrs): Intake & Output 10/22/17 10/23/17 10/23/17 22:59 06:59 14:59 Intake Total 620 380 Output Total 10 50 Balance 610 330 Intake: Intake, Piggyback 100 Tube Feeding 320 320 Free Water Flush 200 60 Output: Gastric Amount 0 0 Stomach 0 0 Urine 10 50 Urethral (Jamil) 10 50 Other: # Bowel Movements 1 - Physical Exam Narrative Physical Exam (Free Text): 10/23/17 07:51 P/E Neck: No JVD Lungs: bilateral pulm edema and infiltrates Abdomen: soft, mild distenstiion, BS +ve Ext : UE and LE + 2 edema Nuero: sedated CV: new onset a fib, rate controlled Head: Positive for: Atraumatic, Normocephalic. Negative for: Tenderness, Contusion Pupils: Positive for: PERRL. Negative for: Sluggish, Non-Reactive Extroacular Muscles: Negative for: Gaze Palsy, Entrapment Conjunctiva: Positive for: Normal. Negative for: Injected, Icteric Mouth: Positive for: Moist Mucous Membranes Pharnyx: Positive for: Normal Nose (External): Positive for: Atraumatic Nose (Internal): Positive for: Normal Inspection Neck: Positive for: Trachea Midline. Negative for: Meningeal Signs, MIDLINE TENDERNESS, Paraspinal Tenderness, JVD, Lymphadenopathy, Bruit, Other Respiratory/Chest: Positive for: Clear to Auscultation, Good Air Exchange. Negative for: Respiratory Distress, Accessory Muscle Use, Wheezes, Rales, Rhonchi, Tender to Palpation Cardiovascular: Positive for: Regular Rate and Rhythm, Normal S1, S2, Peripheal Pulses Present. Negative for: Murmurs, Irregular Rhythm, Tachycardic Abdomen: Positive for: Normal Bowel Sounds. Negative for: Tenderness, Distention, Peritoneal Signs Upper Extremity: Positive for: Normal Inspection, Edema (no pitting edema in upper/lower extremities), NORMAL PULSES, Capillary Refill < 2s. Negative for: Cyanosis Lower Extremity: Positive for: Edema (in lower extremities), NORMAL PULSES, Capillary Refill < 2 s Neurological: Positive for: Other (sedated on mechanical ventilation) Skin: Positive for: Warm, Dry, Pale Psychiatric: Positive for: Other (Intubated and sedated). Negative for: Alert, Oriented x 3 - Medications Active Medications: Active Medications Generic Name Dose Route Start Last Admin Trade Name Freq PRN Reason Stop Dose Admin Acetaminophen 975 mg 10/11/17 20:15 Tylenol 325mg Tab PO ONCE PRN Fever >100.4 F Atorvastatin Calcium 20 mg 10/12/17 09:00 10/22/17 08:49 Lipitor PO 20 mg DAILY IM Administration Haloperidol Lactate 1 mg 10/11/17 20:15 Haldol IVP Q6 PRN Agitation Meropenem 500 mg/ Sodium 100 mls @ 100 mls/hr 10/15/17 10:30 10/22/17 20:43 Chloride IVPB 100 mls/hr Q12 MI Administration Protocol Azithromycin 500 mg/ Sodium 250 mls @ 250 mls/hr 10/18/17 12:45 10/22/17 08: 51 Chloride IVPB 250 mls/hr DAILY MI Administration Protocol Insulin Human Lispro 0 units 10/11/17 22:00 10/22/17 21:42 Humalog SC Not Given ACHS MI Protocol Ipratropium [place] 0.5 mg 10/18/17 14:00 10/23/17 00:24 Atrovent IH 0.5 mg RQ6 MI Administration Levalbuterol HCl 0.63 mg 10/12/17 00:00 10/23/17 00:24 Xopenex INH 0.63 mg RQ8 MI Administration Levothyroxine Sodium 50 mcg 10/12/17 06:30 10/23/17 05:50 Synthroid PO 50 mcg DAILY@0630 MI Administration Metoclopramide HCl 10 mg 10/19/17 01:00 10/23/17 01:52 Reglan IVP 10 mg Q8 MI Administration Pantoprazole Sodium 40 mg 10/19/17 22:00 10/22/17 21:42 Protonix Inj IVP 40 mg Q12H MI Administration Potassium Chloride 20 meq 10/23/17 07:44 Potassium Chloride Oral Soln PO 10/23/17 07:45 ONCE ONE - Patient Studies Lab Studies: Lab Studies 10/23/17 10/23/17 10/23/17 Range/Units 04:19 04:19 04:00 WBC 17.0 H (4.8-10.8) K/uL RBC 2.99 L (3.80-5.20) Mil/uL Hgb 8.9 L (12.0-16.0) g/dL Hct 26.4 L (34.0-47.0) % MCV 88.2 (81.0-99.0) fl MCH 29.7 (27.0-31.0) pg MCHC 33.7 (33.0-37.0) g/dL RDW 15.7 H (11.5-14.5) % Plt Count 24 L* D (130-400) K/uL MPV 9.3 (7.2-11.7) fl Neut % (Auto) 91.2 H (50.0-75.0) % Lymph % (Auto) 5.1 L (20.0-40.0) % Howell % (Auto) 1.9 (0.0-10.0) % Eos % (Auto) 1.4 (0.0-4.0) % Baso % (Auto) 0.4 (0.0-2.0) % Neut # (Auto) 15.5 H (1.8-7.0) K/uL Lymph # (Auto) 0.9 L (1.0-4.3) K/uL Howell # (Auto) 0.3 (0.0-0.8) K/uL Eos # (Auto) 0.2 (0.0-0.7) K/uL Baso # (Auto) 0.1 (0.0-0.2) K/uL Total Counted Neutrophils % (Manual) Band Neutrophils % Lymphocytes % (Manual) Reactive Lymphs % Monocytes % (Manual) Eosinophils % (Manual) Basophils % (Manual) Metamyelocytes % Myelocytes % Promyelocytes % Blast Cells % Plasma Cell % (Manual) Nucleated RBC % Hypersegmented Polys Smudge Cells Toxic Granulation Dohle Bodies Erlinda Rods Platelet Estimate Plt Clumps, EDTA Large Platelets Giant Platelets RBC Morphology Polychromasia Hypochromasia (manual) Poikilocytosis (manual Basophilic Stippling Anisocytosis (manual) Microcytosis (manual) Macrocytosis (manual) Spherocytes Sickle Cells Target Cells Tear Drop Cells Ovalocytes Stomatocytes Helmet Cells [place]oy-[place] Bodies Clinton Cells Acanthocytes (Spur) Rouleaux Schistocytes pCO2 36 (35-45) mm/Hg pO2 93 (80-100) mm/Hg HCO3 24.2 (21-28) mmol/L ABG pH 7.42 (7.35-7.45) ABG Total CO2 24.5 (22-28) mmol/L ABG O2 Saturation 98.8 H (95-98) % ABG Base Excess -0.9 (-2.0-3.0) mmol/L Michael Test Yes ABG Potassium 2.8 L (3.6-5.2) mmol/L A-a O2 Difference 219.0 mm/Hg Sodium 139 136.0 (132-148) mmol/L Chloride 100 101.0 (98-107) mmol/L Glucose 103 (65-105) mg/dL Lactate 3.8 H (0.7-2.1) mmol/L Vent Mode A/c Mechanical Rate 14 FiO2 50.0 % Tidal Volume 400 PEEP 10 Potassium 3.1 L (3.6-5.0) MMOL/L Carbon Dioxide 23 (22-30) mmol/L Anion Gap 19 (10-20) BUN 58 H (7-17) mg/dl Creatinine 2.3 H (0.7-1.2) mg/dl Est GFR ( Amer) 24 Est GFR (Non-Af Amer) 20 POC Glucose (mg/dL) (65-110) mg/dL Random Glucose 99 (65-105) mg/dL Calcium 7.8 L (8.4-10.2) mg/dL Total Bilirubin 1.5 H (0.2-1.3) mg/dl AST 76 H D (14-36) U/L ALT 57 H D (9-52) U/L Alkaline Phosphatase 233 H (38-126) U/L Total Protein 5.8 L (6.3-8.2) G/DL Albumin 2.5 L (3.5-5.0) g/dL Globulin 3.2 (2.2-3.9) gm/dL Albumin/Globulin Ratio 0.8 L (1.0-2.1) Arterial Blood Potassium 2.8 L (3.6-5.2) mmol/L 10/22/17 10/22/17 10/22/17 Range/Units 21:00 16:53 11:08 WBC (4.8-10.8) K/uL RBC (3.80-5.20) Mil/uL Hgb (12.0-16.0) g/dL Hct (34.0-47.0) % MCV (81.0-99.0) fl MCH (27.0-31.0) pg MCHC (33.0-37.0) g/dL RDW (11.5-14.5) % Plt Count (130-400) K/uL MPV (7.2-11.7) fl Neut % (Auto) (50.0-75.0) % Lymph % (Auto) (20.0-40.0) % Howell % (Auto) (0.0-10.0) % Eos % (Auto) (0.0-4.0) % Baso % (Auto) (0.0-2.0) % Neut # (Auto) (1.8-7.0) K/uL Lymph # (Auto) (1.0-4.3) K/uL Howell # (Auto) (0.0-0.8) K/uL Eos # (Auto) (0.0-0.7) K/uL Baso # (Auto) (0.0-0.2) K/uL Total Counted Neutrophils % (Manual) Band Neutrophils % Lymphocytes % (Manual) Reactive Lymphs % Monocytes % (Manual) Eosinophils % (Manual) Basophils % (Manual) Metamyelocytes % Myelocytes % Promyelocytes % Blast Cells % Plasma Cell % (Manual) Nucleated RBC % Hypersegmented Polys Smudge Cells Toxic Granulation Dohle Bodies Erlinda Rods Platelet Estimate Plt Clumps, EDTA Large Platelets Giant Platelets RBC Morphology Polychromasia Hypochromasia (manual) Poikilocytosis (manual Basophilic Stippling Anisocytosis (manual) Microcytosis (manual) Macrocytosis (manual) Spherocytes Sickle Cells Target Cells Tear Drop Cells Ovalocytes Stomatocytes Helmet Cells [place] Bodies Nicolasa Cells Acanthocytes (Spur) Rouleaux Schistocytes pCO2 (35-45) mm/Hg pO2 (80-100) mm/Hg HCO3 (21-28) mmol/L ABG pH (7.35-7.45) ABG Total CO2 (22-28) mmol/L ABG O2 Saturation (95-98) % ABG Base Excess (-2.0-3.0) mmol/L Michael Test ABG Potassium (3.6-5.2) mmol/L A-a O2 Difference mm/Hg Sodium (132-148) mmol/L Chloride (98-107) mmol/L Glucose (65-105) mg/dL Lactate (0.7-2.1) mmol/L Vent Mode Mechanical Rate FiO2 % Tidal Volume PEEP Potassium (3.6-5.0) MMOL/L Carbon Dioxide (22-30) mmol/L Anion Gap (10-20) BUN (7-17) mg/dl Creatinine (0.7-1.2) mg/dl Est GFR ( Amer) Est GFR (Non-Af Amer) POC Glucose (mg/dL) 147 H 179 H 204 H (65-110) mg/dL Random Glucose (65-105) mg/dL Calcium (8.4-10.2) mg/dL Total Bilirubin (0.2-1.3) mg/dl AST (14-36) U/L ALT (9-52) U/L Alkaline Phosphatase (38-126) U/L Total Protein (6.3-8.2) G/DL Albumin (3.5-5.0) g/dL Globulin (2.2-3.9) gm/dL Albumin/Globulin Ratio (1.0-2.1) Arterial Blood Potassium (3.6-5.2) mmol/L 10/22/17 Range/Units 04:20 WBC (4.8-10.8) K/uL RBC (3.80-5.20) Mil/uL Hgb (12.0-16.0) g/dL Hct (34.0-47.0) % MCV (81.0-99.0) fl MCH (27.0-31.0) pg MCHC (33.0-37.0) g/dL RDW (11.5-14.5) % Plt Count (130-400) K/uL MPV (7.2-11.7) fl Neut % (Auto) (50.0-75.0) % Lymph % (Auto) (20.0-40.0) % Howell % (Auto) (0.0-10.0) % Eos % (Auto) (0.0-4.0) % Baso % (Auto) (0.0-2.0) % Neut # (Auto) (1.8-7.0) K/uL Lymph # (Auto) (1.0-4.3) K/uL Howell # (Auto) (0.0-0.8) K/uL Eos # (Auto) (0.0-0.7) K/uL Baso # (Auto) (0.0-0.2) K/uL Total Counted Cancelled Neutrophils % (Manual) Cancelled Band Neutrophils % Cancelled Lymphocytes % (Manual) Cancelled Reactive Lymphs % Cancelled Monocytes % (Manual) Cancelled Eosinophils % (Manual) Cancelled Basophils % (Manual) Cancelled Metamyelocytes % Cancelled Myelocytes % Cancelled Promyelocytes % Cancelled Blast Cells % Cancelled Plasma Cell % (Manual) Cancelled Nucleated RBC % Cancelled Hypersegmented Polys Cancelled Smudge Cells Cancelled Toxic Granulation Cancelled Dohle Bodies Cancelled Erlinda Rods Cancelled Platelet Estimate Cancelled Plt Clumps, EDTA Cancelled Large Platelets Cancelled Giant Platelets Cancelled RBC Morphology Cancelled Polychromasia Cancelled Hypochromasia (manual) Cancelled Poikilocytosis (manual Cancelled Basophilic Stippling Cancelled Anisocytosis (manual) Cancelled Microcytosis (manual) Cancelled Macrocytosis (manual) Cancelled Spherocytes Cancelled Sickle Cells Cancelled Target Cells Cancelled Tear Drop Cells Cancelled Ovalocytes Cancelled Stomatocytes Cancelled Helmet Cells Cancelled [place] Bodies Cancelled [place] Cells Cancelled Acanthocytes (Spur) Cancelled Rouleaux Cancelled Schistocytes Cancelled pCO2 (35-45) mm/Hg pO2 (80-100) mm/Hg HCO3 (21-28) mmol/L ABG pH (7.35-7.45) ABG Total CO2 (22-28) mmol/L ABG O2 Saturation (95-98) % ABG Base Excess (-2.0-3.0) mmol/L Michael Test ABG Potassium (3.6-5.2) mmol/L A-a O2 Difference mm/Hg Sodium (132-148) mmol/L Chloride (98-107) mmol/L Glucose (65-105) mg/dL Lactate (0.7-2.1) mmol/L Vent Mode Mechanical Rate FiO2 % Tidal Volume PEEP Potassium (3.6-5.0) MMOL/L Carbon Dioxide (22-30) mmol/L Anion Gap (10-20) BUN (7-17) mg/dl Creatinine (0.7-1.2) mg/dl Est GFR ( Amer) Est GFR (Non-Af Amer) POC Glucose (mg/dL) (65-110) mg/dL Random Glucose (65-105) mg/dL Calcium (8.4-10.2) mg/dL Total Bilirubin (0.2-1.3) mg/dl AST (14-36) U/L ALT (9-52) U/L Alkaline Phosphatase (38-126) U/L Total Protein (6.3-8.2) G/DL Albumin (3.5-5.0) g/dL Globulin (2.2-3.9) gm/dL Albumin/Globulin Ratio (1.0-2.1) Arterial Blood Potassium (3.6-5.2) mmol/L Laboratory Results - last 24 hr 10/22/17 10/22/17 10/22/17 04:20 11:08 16:53 WBC RBC Hgb Hct MCV MCH MCHC RDW Plt Count MPV Neut % (Auto) Lymph % (Auto) Howell % (Auto) Eos % (Auto) Baso % (Auto) Neut # (Auto) Lymph # (Auto) Howell # (Auto) Eos # (Auto) Baso # (Auto) Total Counted Cancelled Neutrophils % (Manual) Cancelled Band Neutrophils % Cancelled Lymphocytes % (Manual) Cancelled Reactive Lymphs % Cancelled Monocytes % (Manual) Cancelled Eosinophils % (Manual) Cancelled Basophils % (Manual) Cancelled Metamyelocytes % Cancelled Myelocytes % Cancelled Promyelocytes % Cancelled Blast Cells % Cancelled Plasma Cell % (Manual) Cancelled Nucleated RBC % Cancelled Hypersegmented Polys Cancelled Smudge Cells Cancelled Toxic Granulation Cancelled Dohle Bodies Cancelled Erlinda Rods Cancelled Platelet Estimate Cancelled Plt Clumps, EDTA Cancelled Large Platelets Cancelled Giant Platelets Cancelled RBC Morphology Cancelled Polychromasia Cancelled Hypochromasia (manual) Cancelled Poikilocytosis (manual Cancelled Basophilic Stippling Cancelled Anisocytosis (manual) Cancelled Microcytosis (manual) Cancelled Macrocytosis (manual) Cancelled Spherocytes Cancelled Sickle Cells Cancelled Target Cells Cancelled Tear Drop Cells Cancelled Ovalocytes Cancelled Stomatocytes Cancelled Helmet Cells Cancelled [place] Bodies Cancelled [place] Cells Cancelled Acanthocytes (Spur) Cancelled Rouleaux Cancelled Schistocytes Cancelled pCO2 pO2 HCO3 ABG pH ABG Total CO2 ABG O2 Saturation ABG Base Excess Michael Test ABG Potassium A-a O2 Difference Sodium Chloride Glucose Lactate Vent Mode Mechanical Rate FiO2 Tidal Volume PEEP Potassium Carbon Dioxide Anion Gap BUN Creatinine Est GFR ( Amer) Est GFR (Non-Af Amer) POC Glucose (mg/dL) 204 H 179 H Random Glucose Calcium Total Bilirubin AST ALT Alkaline Phosphatase Total Protein Albumin Globulin Albumin/Globulin Ratio Arterial Blood Potassium 10/22/17 10/23/17 10/23/17 21:00 04:00 04:19 WBC 17.0 H RBC 2.99 L Hgb 8.9 L Hct 26.4 L MCV 88.2 MCH 29.7 MCHC 33.7 RDW 15.7 H Plt Count 24 L* D MPV 9.3 Neut % (Auto) 91.2 H Lymph % (Auto) 5.1 L Howell % (Auto) 1.9 Eos % (Auto) 1.4 Baso % (Auto) 0.4 Neut # (Auto) 15.5 H Lymph # (Auto) 0.9 L Howell # (Auto) 0.3 Eos # (Auto) 0.2 Baso # (Auto) 0.1 Total Counted Neutrophils % (Manual) Band Neutrophils % Lymphocytes % (Manual) Reactive Lymphs % Monocytes % (Manual) Eosinophils % (Manual) Basophils % (Manual) Metamyelocytes % Myelocytes % Promyelocytes % Blast Cells % Plasma Cell % (Manual) Nucleated RBC % Hypersegmented Polys Smudge Cells Toxic Granulation Dohle Bodies Erlinda Rods Platelet Estimate Plt Clumps, EDTA Large Platelets Giant Platelets RBC Morphology Polychromasia Hypochromasia (manual) Poikilocytosis (manual Basophilic Stippling Anisocytosis (manual) Microcytosis (manual) Macrocytosis (manual) Spherocytes Sickle Cells Target Cells Tear Drop Cells Ovalocytes Stomatocytes Helmet Cells [place] Bodies Nicolasa Cells Acanthocytes (Spur) Rouleaux Schistocytes pCO2 36 pO2 93 HCO3 24.2 ABG pH 7.42 ABG Total CO2 24.5 ABG O2 Saturation 98.8 H ABG Base Excess -0.9 Michael Test Yes ABG Potassium 2.8 L A-a O2 Difference 219.0 Sodium 136.0 Chloride 101.0 Glucose 103 Lactate 3.8 H Vent Mode A/c Mechanical Rate 14 FiO2 50.0 Tidal Volume 400 PEEP 10 Potassium Carbon Dioxide Anion Gap BUN Creatinine Est GFR ( Amer) Est GFR (Non-Af Amer) POC Glucose (mg/dL) 147 H Random Glucose Calcium Total Bilirubin AST ALT Alkaline Phosphatase Total Protein Albumin Globulin Albumin/Globulin Ratio Arterial Blood Potassium 2.8 L 10/23/17 04:19 WBC RBC Hgb Hct MCV MCH MCHC RDW Plt Count MPV Neut % (Auto) Lymph % (Auto) Howell % (Auto) Eos % (Auto) Baso % (Auto) Neut # (Auto) Lymph # (Auto) Howell # (Auto) Eos # (Auto) Baso # (Auto) Total Counted Neutrophils % (Manual) Band Neutrophils % Lymphocytes % (Manual) Reactive Lymphs % Monocytes % (Manual) Eosinophils % (Manual) Basophils % (Manual) Metamyelocytes % Myelocytes % Promyelocytes % Blast Cells % Plasma Cell % (Manual) Nucleated RBC % Hypersegmented Polys Smudge Cells Toxic Granulation Dohle Bodies Erlinda Rods Platelet Estimate Plt Clumps, EDTA Large Platelets Giant Platelets RBC Morphology Polychromasia Hypochromasia (manual) Poikilocytosis (manual Basophilic Stippling Anisocytosis (manual) Microcytosis (manual) Macrocytosis (manual) Spherocytes Sickle Cells Target Cells Tear Drop Cells Ovalocytes Stomatocytes Helmet Cells [place] Bodies Nicolasa Cells Acanthocytes (Spur) Rouleaux Schistocytes pCO2 pO2 HCO3 ABG pH ABG Total CO2 ABG O2 Saturation ABG Base Excess Michael Test ABG Potassium A-a O2 Difference Sodium 139 Chloride 100 Glucose Lactate Vent Mode Mechanical Rate FiO2 Tidal Volume PEEP Potassium 3.1 L Carbon Dioxide 23 Anion Gap 19 BUN 58 H Creatinine 2.3 H Est GFR ( Amer) 24 Est GFR (Non-Af Amer) 20 POC Glucose (mg/dL) Random Glucose 99 Calcium 7.8 L Total Bilirubin 1.5 H AST 76 H D ALT 57 H D Alkaline Phosphatase 233 H Total Protein 5.8 L Albumin 2.5 L Globulin 3.2 Albumin/Globulin Ratio 0.8 L Arterial Blood Potassium Fingerstick Blood Sugar Results: 99 Critical Care Progress Note - Vent Settings MODE:: PRVC TIDAL VOLUME:: 400 RESP RATE:: 14 FIO2:: 40% PEEP:: 10 - Extremities/Vascular Does the Patient have a Central Venous Catheter?: Yes Insertion Site: Femoral Vein - Nutrition Nutrition: Nutrition Category Date Time Status NPO Diet [DIET] Diets 10/12/17 Breakfast Active Assessment/Plan - Assessment and Plan (Free Text) Assessment: Resp failure: PNA: multilobar Influenza NAHOMI: oliguric, on HD Thrombocytopenia Edema A fib Plan: On daily HD, as per renal Not on any heparin, monitor platlets Heam consult K: replaced On meropenum Tube feeding Prognosis is poor , family to decide about level of care or terminal extubation , by Wednesday.
[2017-10-23] MEDS: Meropenem 500 MG in Sodium Chloride 0.9% 100 ML IVPB SCH ×2 (08:23→21:33)
--- NOTE | 2017-10-23 09:15 | RAD ---
PROCEDURE: CHEST RADIOGRAPH, 1 VIEW HISTORY: intubated/mech ventilation COMPARISON: None available. FINDINGS: LUNGS: No significant change in extensive bilateral interstitial infiltrates. PLEURA: No pneumothorax or pleural fluid seen. CARDIOVASCULAR: Cardiomegaly. OSSEOUS STRUCTURES: No significant abnormalities. VISUALIZED UPPER ABDOMEN: Normal. OTHER FINDINGS: ETT above the emmanuel. IMPRESSION: Extensive bilateral interstitial infiltrates.
[2017-10-23] MEDS: Azithromycin 500 MG in Sodium Chloride 0.9% 250 ML IVPB SCH (09:42)
--- NOTE | 2017-10-23 10:15 | CARD ---
APPROVED REPORT EKG Measurement Heart [id number] <Conclusion> Sinus tachycardia Nonspecific ST and T wave abnormality Abnormal ECG artefact present
[2017-10-23] MEDS: Insulin Lispro (humaLOG) 100 Units/ml Inj SC SCH ×3 (11:53→21:32)
[2017-10-23 12:34] LABS: EOSINOPHIL 1 % (0-7); LYMPHOCYTE 5 % (20-50); MONOCYTE 3 % (0-10); NEUTROPHIL 91 % (42-75); TOTAL CELLS COUNTED 100
[2017-10-23 12:35] LABS: ANISOCYTOSIS SLIGHT; HYPOCHROMIC SLIGHT; OVALOCYTES SLIGHT; PLATELET ESTIMATE DECREASED (NORMAL); TEARDROP CELLS SLIGHT
[2017-10-23 12:36] LABS: TOXIC GRANULATION PRESENT
--- NOTE | 2017-10-23 15:35 | CP.PCM.PN ---
Subjective - Date & Time of Evaluation Date of Evaluation: 10/23/17 Time of Evaluation: 12:50 - Subjective Subjective: F/U PNA, Influenza A intubated , off Propofol Objective - Vital Signs/Intake and Output Vital Signs (last 24 hours): Temp Pulse Resp BP Pulse Ox 99.0 F 95 H 16 110/33 L 96 10/23/17 12:00 10/23/17 12:00 10/23/17 12:00 10/23/17 12:00 10/23/17 12:00 Intake and Output: 10/23/17 10/23/17 06:59 18:59 Intake Total 740 630 Output Total 50 Balance 690 630 - Medications Medications: Current Medications Acetaminophen (Tylenol 325mg Tab) 975 mg PO ONCE PRN PRN Reason: Fever >100.4 F Atorvastatin Calcium (Lipitor) 20 mg PO DAILY [facility] Last Admin: 10/23/17 08:23 Dose: 20 mg Haloperidol Lactate (Haldol) 1 mg IVP Q6 PRN PRN Reason: Agitation Meropenem 500 mg/ Sodium (Chloride) 100 mls @ 100 mls/hr IVPB Q12 MI PRN Reason: Protocol Last Admin: 10/23/17 08:23 Dose: 100 mls/hr Insulin Human Lispro (Humalog) 0 units SC ACHS MI PRN Reason: Protocol Last Admin: 10/23/17 11:53 Dose: Not Given Ipratropium [place] (Atrovent) 0.5 mg IH RQ6 [facility] Last Admin: 10/23/17 14:20 Dose: 0.5 mg Levalbuterol HCl (Xopenex) 0.63 mg INH RQ8 [facility] Last Admin: 10/23/17 14:21 Dose: 0.63 mg Levothyroxine Sodium (Synthroid) 50 mcg PO DAILY@0630 [facility] Last Admin: 10/23/17 05:50 Dose: 50 mcg Metoclopramide HCl (Reglan) 10 mg IVP Q8 [facility] Last Admin: 10/23/17 08:24 Dose: 10 mg Pantoprazole Sodium (Protonix Inj) 40 mg IVP Q12H [facility] Last Admin: 10/23/17 09:43 Dose: 40 mg - Labs Labs: 10/23/17 04:19 10/23/17 04:19 PT 16.2 Seconds (9.8-13.1) H 10/21/17 04:20 INR 1.5 (0.9-1.2) H 10/21/17 04:20 APTT 24.0 Seconds (25.6-37.1) L D 10/21/17 04:20 - Constitutional Appears: No Acute Distress - Head Exam Head Exam: NORMAL INSPECTION - Eye Exam Eye Exam: PERRL - ENT Exam Additional comments: Intubated, ogt - Neck Exam Neck Exam: Normal Inspection - Respiratory Exam Respiratory Exam: Decreased Breath Sounds (at bases) - Cardiovascular Exam Cardiovascular Exam: REGULAR RHYTHM - GI/Abdominal Exam GI & Abdominal Exam: Soft, Normal Bowel Sounds - Extremities Exam Extremities Exam: Pedal Edema Additional comments: edema generalized - Back Exam Additional comments: open sacral area - Neurological Exam Additional comments: Intubated, minimal response to tactil stimuli - Psychiatric Exam Additional comments: intubated - Skin Skin Exam: Warm Assessment and Plan (1) Pneumonia Status: Acute (2) Influenza A Status: Acute (3) Respiratory failure Status: Acute (4) Sepsis Status: Acute (5) Anemia Status: Acute (6) NAHOMI (acute kidney injury) Status: Acute - Assessment and Plan (Free Text) Plan: intubated , stool incontinent , unable to wean , CKR no improvement , C-S neg , to have Platelet transfusion , Lovenox DC , prognisis very poor , discussed with Patient, family , continue ventilatory support, Merren , dialysis and rest of treatment ICU Time: 37 min.
--- NOTE | 2017-10-23 20:01 | CP.PCM.PN ---
Subjective - Date & Time of Evaluation Date of Evaluation: 10/23/17 Time of Evaluation: 19:58 - Subjective Subjective: Follow up Nephrology Consultation Note Assessment: critical Acute Kidney Injury (N17.9) with fluid overload now on HD pneumonia, acute influenza, respi failure, thrombocytopenia, Anemia Hypokalemia Plan BP on low side today. Will plan for HD tomorrow as ordered maintain hemodynamics stable Patient not on ACEI/ARB due to recent NAHOMI Monitor Input/Output, daily weights and renal function with basic metabolic panel K supplemented Dose meds/antibiotics for reduced GFR. Avoid fleets enema/magnesium based laxatives. Avoid nephrotoxins/NSAIDs/ iodinated contrast (unless needed emergently) Glycemic control Further work up for as per primary team Thanks for allowing me to participate in care of your patient. Will follow patient with you. Please call if any Qs. d/w team and family bedside Dr Dilip Alvarenga Office: [phone] Subjective: unable pt intubated Physical Examination: General Appearance: Comfortable, in no acute respiratory distress, Vitals reviewed and noted as below Head; Atraumatic, normocephalic ENT: orally intubated EYES: Pupils are equal, round and reactive to light accommodation. Eye muscles and extraocular movement intact. Sclera is anicteric. Neck; supple no lymphadenopathy, no thyromegaly or bruit Lungs: Normal respiratory rate/effort. Breath sounds bilateral equal and clear anteriorly Heart: Normal rate. s1s2 normal. No rub or gallop. Extremities: 2+ edema. No varicose veins Neurological: Patient is sedated Skin: Warm and dry. Normal turgor. No rash. Palpitation: Normal elasticity for age Abdomen: Abdomen is soft. Bowel sounds +. There is no abdominal tenderness, no guarding/rigidity no organomegaly Psych: unable MSK: no joint tenderness or swelling. Digits and nails normal, no deformity : kidney or bladder not palpable Access: femoral shiley Labs/imaging reviewed. Past medical history, past surgical history, family history, social history, allergy reviewed and noted as below Family hx: no hx of CKD. Rest non-contributory Objective - Vital Signs/Intake and Output Vital Signs (last 24 hours): Temp Pulse Resp BP Pulse Ox 99.0 F 93 H 19 103/36 L 98 10/23/17 16:00 10/23/17 18:00 10/23/17 18:00 10/23/17 18:00 10/23/17 18:00 Intake and Output: 10/23/17 10/24/17 18:59 06:59 Intake Total 1105 Output Total 25 Balance 1080 - Medications Medications: Current Medications Acetaminophen (Tylenol 325mg Tab) 975 mg PO ONCE PRN PRN Reason: Fever >100.4 F Atorvastatin Calcium (Lipitor) 20 mg PO DAILY [facility] Last Admin: 10/23/17 08:23 Dose: 20 mg Haloperidol Lactate (Haldol) 1 mg IVP Q6 PRN PRN Reason: Agitation Meropenem 500 mg/ Sodium (Chloride) 100 mls @ 100 mls/hr IVPB Q12 [place] PRN Reason: Protocol Last Admin: 10/23/17 08:23 Dose: 100 mls/hr Insulin Human Lispro (Humalog) 0 units SC ACHS [place] PRN Reason: Protocol Last Admin: 10/23/17 16:57 Dose: 1 units Ipratropium [place] (Atrovent) 0.5 mg IH RQ6 [facility] Last Admin: 10/23/17 14:20 Dose: 0.5 mg Levalbuterol HCl (Xopenex) 0.63 mg INH RQ8 [facility] Last Admin: 10/23/17 15:56 Dose: Not Given Levothyroxine Sodium (Synthroid) 50 mcg PO DAILY@0630 [facility] Last Admin: 10/23/17 05:50 Dose: 50 mcg Metoclopramide HCl (Reglan) 10 mg IVP Q8 [facility] Last Admin: 10/23/17 16:57 Dose: 10 mg Pantoprazole Sodium (Protonix Inj) 40 mg IVP Q12H [facility] Last Admin: 10/23/17 09:43 Dose: 40 mg - Labs Labs: 10/23/17 04:19 10/23/17 04:19 PT 16.2 Seconds (9.8-13.1) H 10/21/17 04:20 INR 1.5 (0.9-1.2) H 10/21/17 04:20 APTT 24.0 Seconds (25.6-37.1) L D 10/21/17 04:20
--- NOTE | 2017-10-23 22:07 | PN ---
DATE: SUBJECTIVE: The patient did develop an episode of atrial fibrillation early this morning. She converted to sinus rhythm. She is still on ventilator, sedated 35% to 50%, and hemodynamics stable. PHYSICAL EXAMINATION: VITAL SIGNS: Blood pressure 124/49, heart rate 109, temperature 99, and sinus tachycardia on the monitor. HEENT: Pale conjunctivae. CHEST: Bilateral rhonchi. HEART: S1 and S2 regular. EXTREMITIES: Trace leg edema. LABORATORY DATA: Hemoglobin and hematocrit 8.9 and 26.4, white count 17,000, platelet count 24,000, which is a significant drop compared to yesterday. SMA-7; sodium 139, potassium 3.1, chloride 100, CO2 of 23, glucose 99, BUN 58, and creatinine 2.3. Total bilirubin 1.5 and alkaline phosphatase 233. Today's EKG revealed sinus tachycardia at rate [address]-T wave changes. ASSESSMENT: 1. Respiratory failure. 2. Paroxysmal atrial fibrillation. 3. Bilateral pneumonia. 4. Acute renal failure, requiring hemodialysis. 5. Hypokalemia. 6. Worsening thrombocytopenia. 7. Cholestasis. RECOMMENDATIONS: Continue current IV meropenem at 500 mg twice a day. The patient is not a suitable candidate for anticoagulation because of worsening platelet count. Antiplatelet antibody assay is still pending and I did recommend hematology consultation, which was requested today. I did also recommend not to administer heparin during hemodialysis. Mitchell Hollis MD
[2017-10-24] MEDS: Levalbuterol 0.63 MG/3 ML Inhal Soln UD INH SCH ×3 (00:05→15:46)
[2017-10-24] MEDS: Ipratropium 0.02% Inhal Soln (0.5 mg/2.5 ml) UD IH SCH ×4 (00:05→20:00)
--- NOTE | 2017-10-24 00:53 | CP.PCM.PN ---
Subjective - Date & Time of Evaluation Date of Evaluation: 10/23/17 Time of Evaluation: 17:15 Objective - Vital Signs/Intake and Output Vital Signs (last 24 hours): Temp Pulse Resp BP Pulse Ox 99.0 F 100 H 16 131/44 L 97 10/24/17 00:00 10/24/17 00:00 10/24/17 00:00 10/24/17 00:00 10/24/17 00:00 Intake and Output: 10/23/17 10/24/17 18:59 06:59 Intake Total 1105 40 Output Total 25 50 Balance 1080 -10 - Medications Medications: Current Medications Acetaminophen (Tylenol 325mg Tab) 975 mg PO ONCE PRN PRN Reason: Fever >100.4 F Atorvastatin Calcium (Lipitor) 20 mg PO DAILY [facility] Last Admin: 10/23/17 08:23 Dose: 20 mg Haloperidol Lactate (Haldol) 1 mg IVP Q6 PRN PRN Reason: Agitation Meropenem 500 mg/ Sodium (Chloride) 100 mls @ 100 mls/hr IVPB Q12 MI PRN Reason: Protocol Last Admin: 10/23/17 21:33 Dose: 100 mls/hr Insulin Human Lispro (Humalog) 0 units SC ACHS MI PRN Reason: Protocol Last Admin: 10/23/17 21:32 Dose: Not Given Ipratropium [place] (Atrovent) 0.5 mg IH RQ6 [facility] Last Admin: 10/24/17 00:05 Dose: 0.5 mg Levalbuterol HCl (Xopenex) 0.63 mg INH RQ8 [facility] Last Admin: 10/24/17 00:05 Dose: 0.63 mg Levothyroxine Sodium (Synthroid) 50 mcg PO DAILY@0630 [facility] Last Admin: 10/23/17 05:50 Dose: 50 mcg Metoclopramide HCl (Reglan) 10 mg IVP Q8 [facility] Last Admin: 10/23/17 16:57 Dose: 10 mg Pantoprazole Sodium (Protonix Inj) 40 mg IVP Q12H [facility] Last Admin: 10/23/17 21:36 Dose: 40 mg - Labs Labs: 10/23/17 04:19 10/23/17 04:19 PT 16.2 Seconds (9.8-13.1) H 10/21/17 04:20 INR 1.5 (0.9-1.2) H 10/21/17 04:20 APTT 24.0 Seconds (25.6-37.1) L D 10/21/17 04:20
[2017-10-24 04:46] LABS: ABG ALLEN TEST YES; ARTERIAL BLOOD GAS HEMOGLOBIN 8.5 g/dL (11.7-17.4); ARTERIAL BLOOD GAS O2 CAPACITY 11.7 mL/dL (16-24); ARTERIAL BLOOD GAS O2 CONTENT 11.6 ML/dL (15-23); ARTERIAL BLOOD GAS O2 SAT 98.9 % (95-98); ARTERIAL BLOOD GAS PCO2 39 mm/Hg (35-45); ARTERIAL BLOOD GAS PH 7.39 (7.35-7.45); ARTERIAL BLOOD GAS PO2 81 mm/Hg (80-100); ARTERIAL BLOOD GAS TCO2 24.8 mmol/L (22-28)
[2017-10-24 05:25] LABS: HEMOGLOBIN 8.1 g/dL (12.0-16.0); MEAN CELL VOLUME 89.4 fl (81.0-99.0); MEAN CORPUSCULAR HEMOGLOBIN 29.3 pg (27.0-31.0); MEAN CORPUSCULAR HGB CONC 32.8 g/dL (33.0-37.0); RBC 2.76 Mil/uL (3.80-5.20); RED CELL DISTRIBUTION WIDTH 15.2 % (11.5-14.5)
[2017-10-24 06:09] LABS: ALB/GLOB RATIO 0.8 (1.0-2.1); ALBUMIN 2.4 g/dL (3.5-5.0)
[2017-10-24] MEDS: Levothyroxine 50 MCG TAB PO SCH (06:18)
--- NOTE | 2017-10-24 08:35 | CP.CCUPN ---
CCU Subjective - Physician Review Events Since Last Encounter (Free Text): 10/24/17 08:32 sedated, intubated, BP is better , thromoboctopenia : better CCU Objective - Vital Signs / Intake & Output Vital Signs (Last 4 hours): Vital Signs Temp Pulse Resp BP Pulse Ox 10/24/17 08:00 98.5 F 100 H 15 123/39 L 98 10/24/17 06:00 95 H 20 122/39 L 95 Intake and Output (Last 8hrs): Intake & Output 10/23/17 10/24/17 10/24/17 22:59 06:59 14:59 Intake Total 435 100 Output Total 75 35 Balance 360 65 Intake: Intake, Piggyback 100 100 Tube Feeding 120 Blood Product 215 Output: Gastric Amount 50 Stomach 50 Urine 25 35 Urethral (Jamil) 25 35 Other: # Bowel Movements 1 2 - Physical Exam Narrative Physical Exam (Free Text): 10/24/17 08:33 P/E Neck: No JVD Lungs: Rt basal crackles Abdomen: slightly distended Ext: upper and lower ext, edema Heart: NO gallop Head: Positive for: Atraumatic, Normocephalic. Negative for: Tenderness, Contusion Pupils: Positive for: PERRL. Negative for: Sluggish, Non-Reactive Extroacular Muscles: Negative for: Gaze Palsy, Entrapment Conjunctiva: Positive for: Normal. Negative for: Injected, Icteric Mouth: Positive for: Moist Mucous Membranes Pharnyx: Positive for: Normal Nose (External): Positive for: Atraumatic Nose (Internal): Positive for: Normal Inspection Neck: Positive for: Trachea Midline. Negative for: Meningeal Signs, MIDLINE TENDERNESS, Paraspinal Tenderness, JVD, Lymphadenopathy, Bruit, Other Respiratory/Chest: Positive for: Clear to Auscultation, Good Air Exchange. Negative for: Respiratory Distress, Accessory Muscle Use, Wheezes, Rales, Rhonchi, Tender to Palpation Cardiovascular: Positive for: Regular Rate and Rhythm, Normal S1, S2, Peripheal Pulses Present. Negative for: Murmurs, Irregular Rhythm, Tachycardic Abdomen: Positive for: Normal Bowel Sounds. Negative for: Tenderness, Distention, Peritoneal Signs Upper Extremity: Positive for: Normal Inspection, Edema (no pitting edema in upper/lower extremities), NORMAL PULSES, Capillary Refill < 2s. Negative for: Cyanosis Lower Extremity: Positive for: Edema (in lower extremities), NORMAL PULSES, Capillary Refill < 2 s Neurological: Positive for: Other (sedated on mechanical ventilation) Skin: Positive for: Warm, Dry, Pale Psychiatric: Positive for: Other (Intubated and sedated). Negative for: Alert, Oriented x 3 - Medications Active Medications: Active Medications Generic Name Dose Route Start Last Admin Trade Name Freq PRN Reason Stop Dose Admin Acetaminophen 975 mg 10/11/17 20:15 Tylenol 325mg Tab PO ONCE PRN Fever >100.4 F Atorvastatin Calcium 20 mg 10/12/17 09:00 10/23/17 08:23 Lipitor PO 20 mg DAILY MI Administration Haloperidol Lactate 1 mg 10/11/17 20:15 Haldol IVP Q6 PRN Agitation Meropenem 500 mg/ Sodium 100 mls @ 100 mls/hr 10/15/17 10:30 10/23/17 21:33 Chloride IVPB 100 mls/hr Q12 MI Administration Protocol Insulin Human Lispro 0 units 10/11/17 22:00 10/23/17 21:32 Humalog SC Not Given ACHS [facility] Protocol Ipratropium [place] 0.5 mg 10/18/17 14:00 10/24/17 08:05 Atrovent IH 0.5 mg RQ6 MI Administration Levalbuterol HCl 0.63 mg 10/12/17 00:00 10/24/17 08:05 Xopenex INH Not Given RQ8 MI Levothyroxine Sodium 50 mcg 10/12/17 06:30 10/24/17 06:18 Synthroid PO 50 mcg DAILY@0630 [facility] Administration Metoclopramide HCl 10 mg 10/19/17 01:00 10/24/17 01:27 Reglan IVP 10 mg Q8 [facility] Administration Pantoprazole Sodium 40 mg 10/19/17 22:00 10/23/17 21:36 Protonix Inj IVP 40 mg Q12H [place] Administration - Patient Studies Lab Studies: Microbiology Studies 10/15/17 18:00 Mycobacterial Culture - Preliminary Other: Please Indicate Lab Studies 10/24/17 10/24/17 10/24/17 Range/Units 05:36 05:28 04:00 WBC (4.8-10.8) K/uL RBC (3.80-5.20) Mil/uL Hgb (12.0-16.0) g/dL Hct (34.0-47.0) % MCV (81.0-99.0) fl MCH (27.0-31.0) pg MCHC (33.0-37.0) g/dL RDW (11.5-14.5) % Plt Count (130-400) K/uL Neutrophils % (Manual) (42-75) % Lymphocytes % (Manual) (20-50) % Monocytes % (Manual) (0-10) % Eosinophils % (Manual) (0-7) % Toxic Granulation Platelet Estimate (NORMAL) Hypochromasia (manual) Basophilic Stippling Anisocytosis (manual) Tear Drop Cells Ovalocytes pCO2 39 (35-45) mm/Hg pO2 81 (80-100) mm/Hg HCO3 24.0 (21-28) mmol/L ABG pH 7.39 (7.35-7.45) ABG Total CO2 24.8 (22-28) mmol/L ABG O2 Saturation 98.9 H (95-98) % ABG O2 Content 11.6 L (15-23) ML/dL ABG Base Excess -1.2 (-2.0-3.0) mmol/L ABG Hemoglobin 8.5 L (11.7-17.4) g/dL ABG Carboxyhemoglobin 2.0 H (0.5-1.5) % POC ABG HHb (Measured) 1.1 (0.0-5.0) % ABG Methemoglobin 1.0 (0.0-3.0) % ABG O2 Capacity 11.7 L (16-24) mL/dL Michael Test Yes A-a O2 Difference 227.0 mm/Hg Hgb O2 Saturation 95.9 (95.0-98.0) % Vent Mode A/c Mechanical Rate 14 FiO2 50.0 % Tidal Volume 400 PEEP 10 Sodium 140 (132-148) mmol/l Potassium 3.4 L (3.6-5.0) MMOL/L Chloride 102 (98-107) mmol/L Carbon Dioxide 23 (22-30) mmol/L Anion Gap 18 (10-20) BUN 86 H (7-17) mg/dl Creatinine 2.8 H (0.7-1.2) mg/dl Est GFR ( Amer) 19 Est GFR (Non-Af Amer) 16 POC Glucose (mg/dL) 192 H (65-110) mg/dL Random Glucose 174 H (65-105) mg/dL Calcium 8.0 L (8.4-10.2) mg/dL Total Bilirubin 1.4 H (0.2-1.3) mg/dl AST 46 H D (14-36) U/L ALT 44 (9-52) U/L Alkaline Phosphatase 203 H (38-126) U/L Total Protein 5.4 L (6.3-8.2) G/DL Albumin 2.4 L (3.5-5.0) g/dL Globulin 3.1 (2.2-3.9) gm/dL Albumin/Globulin Ratio 0.8 L (1.0-2.1) 10/24/17 10/23/17 10/23/17 Range/Units 04:00 21:21 16:41 WBC 13.0 H (4.8-10.8) K/uL RBC 2.76 L (3.80-5.20) Mil/uL Hgb 8.1 L (12.0-16.0) g/dL Hct 24.7 L (34.0-47.0) % MCV 89.4 (81.0-99.0) fl MCH 29.3 (27.0-31.0) pg MCHC 32.8 L (33.0-37.0) g/dL RDW 15.2 H (11.5-14.5) % Plt Count 58 L D (130-400) K/uL Neutrophils % (Manual) (42-75) % Lymphocytes % (Manual) (20-50) % Monocytes % (Manual) (0-10) % Eosinophils % (Manual) (0-7) % Toxic Granulation Platelet Estimate (NORMAL) Hypochromasia (manual) Basophilic Stippling Anisocytosis (manual) Tear Drop Cells Ovalocytes pCO2 (35-45) mm/Hg pO2 (80-100) mm/Hg HCO3 (21-28) mmol/L ABG pH (7.35-7.45) ABG Total CO2 (22-28) mmol/L ABG O2 Saturation (95-98) % ABG O2 Content (15-23) ML/dL ABG Base Excess (-2.0-3.0) mmol/L ABG Hemoglobin (11.7-17.4) g/dL ABG Carboxyhemoglobin (0.5-1.5) % POC ABG HHb (Measured) (0.0-5.0) % ABG Methemoglobin (0.0-3.0) % ABG O2 Capacity (16-24) mL/dL Michael Test A-a O2 Difference mm/Hg Hgb O2 Saturation (95.0-98.0) % Vent Mode Mechanical Rate FiO2 % Tidal Volume PEEP Sodium (132-148) mmol/l Potassium (3.6-5.0) MMOL/L Chloride (98-107) mmol/L Carbon Dioxide (22-30) mmol/L Anion Gap (10-20) BUN (7-17) mg/dl Creatinine (0.7-1.2) mg/dl Est GFR ( Amer) Est GFR (Non-Af Amer) POC Glucose (mg/dL) 171 H 189 H (65-110) mg/dL Random Glucose (65-105) mg/dL Calcium (8.4-10.2) mg/dL Total Bilirubin (0.2-1.3) mg/dl AST (14-36) U/L ALT (9-52) U/L Alkaline Phosphatase (38-126) U/L Total Protein (6.3-8.2) G/DL Albumin (3.5-5.0) g/dL Globulin (2.2-3.9) gm/dL Albumin/Globulin Ratio (1.0-2.1) 10/23/17 10/23/17 Range/Units 11:13 04:19 WBC (4.8-10.8) K/uL RBC (3.80-5.20) Mil/uL Hgb (12.0-16.0) g/dL Hct (34.0-47.0) % MCV (81.0-99.0) fl MCH (27.0-31.0) pg MCHC (33.0-37.0) g/dL RDW (11.5-14.5) % Plt Count (130-400) K/uL Neutrophils % (Manual) 91 H (42-75) % Lymphocytes % (Manual) 5 L (20-50) % Monocytes % (Manual) 3 (0-10) % Eosinophils % (Manual) 1 (0-7) % Toxic Granulation Present Platelet Estimate Decreased L (NORMAL) Hypochromasia (manual) Slight Basophilic Stippling Slight Anisocytosis (manual) Slight Tear Drop Cells Slight Ovalocytes Slight pCO2 (35-45) mm/Hg pO2 (80-100) mm/Hg HCO3 (21-28) mmol/L ABG pH (7.35-7.45) ABG Total CO2 (22-28) mmol/L ABG O2 Saturation (95-98) % ABG O2 Content (15-23) ML/dL ABG Base Excess (-2.0-3.0) mmol/L ABG Hemoglobin (11.7-17.4) g/dL ABG Carboxyhemoglobin (0.5-1.5) % POC ABG HHb (Measured) (0.0-5.0) % ABG Methemoglobin (0.0-3.0) % ABG O2 Capacity (16-24) mL/dL Michael Test A-a O2 Difference mm/Hg Hgb O2 Saturation (95.0-98.0) % Vent Mode Mechanical Rate FiO2 % Tidal Volume PEEP Sodium (132-148) mmol/l Potassium (3.6-5.0) MMOL/L Chloride (98-107) mmol/L Carbon Dioxide (22-30) mmol/L Anion Gap (10-20) BUN (7-17) mg/dl Creatinine (0.7-1.2) mg/dl Est GFR ( Amer) Est GFR (Non-Af Amer) POC Glucose (mg/dL) 133 H (65-110) mg/dL Random Glucose (65-105) mg/dL Calcium (8.4-10.2) mg/dL Total Bilirubin (0.2-1.3) mg/dl AST (14-36) U/L ALT (9-52) U/L Alkaline Phosphatase (38-126) U/L Total Protein (6.3-8.2) G/DL Albumin (3.5-5.0) g/dL Globulin (2.2-3.9) gm/dL Albumin/Globulin Ratio (1.0-2.1) Laboratory Results - last 24 hr 10/23/17 10/23/17 10/23/17 04:19 11:13 16:41 WBC RBC Hgb Hct MCV MCH MCHC RDW Plt Count Neutrophils % (Manual) 91 H Lymphocytes % (Manual) 5 L Monocytes % (Manual) 3 Eosinophils % (Manual) 1 Toxic Granulation Present Platelet Estimate Decreased L Hypochromasia (manual) Slight Basophilic Stippling Slight Anisocytosis (manual) Slight Tear Drop Cells Slight Ovalocytes Slight pCO2 pO2 HCO3 ABG pH ABG Total CO2 ABG O2 Saturation ABG O2 Content ABG Base Excess ABG Hemoglobin ABG Carboxyhemoglobin POC ABG HHb (Measured) ABG Methemoglobin ABG O2 Capacity Michael Test A-a O2 Difference Hgb O2 Saturation Vent Mode Mechanical Rate FiO2 Tidal Volume PEEP Sodium Potassium Chloride Carbon Dioxide Anion Gap BUN Creatinine Est GFR ( Amer) Est GFR (Non-Af Amer) POC Glucose (mg/dL) 133 H 189 H Random Glucose Calcium Total Bilirubin AST ALT Alkaline Phosphatase Total Protein Albumin Globulin Albumin/Globulin Ratio 10/23/17 10/24/17 10/24/17 21:21 04:00 04:00 WBC 13.0 H RBC 2.76 L Hgb 8.1 L Hct 24.7 L MCV 89.4 MCH 29.3 MCHC 32.8 L RDW 15.2 H Plt Count 58 L D Neutrophils % (Manual) Lymphocytes % (Manual) Monocytes % (Manual) Eosinophils % (Manual) Toxic Granulation Platelet Estimate Hypochromasia (manual) Basophilic Stippling Anisocytosis (manual) Tear Drop Cells Ovalocytes pCO2 39 pO2 81 HCO3 24.0 ABG pH 7.39 ABG Total CO2 24.8 ABG O2 Saturation 98.9 H ABG O2 Content 11.6 L ABG Base Excess -1.2 ABG Hemoglobin 8.5 L ABG Carboxyhemoglobin 2.0 H POC ABG HHb (Measured) 1.1 ABG Methemoglobin 1.0 ABG O2 Capacity 11.7 L Michael Test Yes A-a O2 Difference 227.0 Hgb O2 Saturation 95.9 Vent Mode A/c Mechanical Rate 14 FiO2 50.0 Tidal Volume 400 PEEP 10 Sodium Potassium Chloride Carbon Dioxide Anion Gap BUN Creatinine Est GFR ( Amer) Est GFR (Non-Af Amer) POC Glucose (mg/dL) 171 H Random Glucose Calcium Total Bilirubin AST ALT Alkaline Phosphatase Total Protein Albumin Globulin Albumin/Globulin Ratio 10/24/17 10/24/17 05:28 05:36 WBC RBC Hgb Hct MCV MCH MCHC RDW Plt Count Neutrophils % (Manual) Lymphocytes % (Manual) Monocytes % (Manual) Eosinophils % (Manual) Toxic Granulation Platelet Estimate Hypochromasia (manual) Basophilic Stippling Anisocytosis (manual) Tear Drop Cells Ovalocytes pCO2 pO2 HCO3 ABG pH ABG Total CO2 ABG O2 Saturation ABG O2 Content ABG Base Excess ABG Hemoglobin ABG Carboxyhemoglobin POC ABG HHb (Measured) ABG Methemoglobin ABG O2 Capacity Michael Test A-a O2 Difference Hgb O2 Saturation Vent Mode Mechanical Rate FiO2 Tidal Volume PEEP Sodium 140 Potassium 3.4 L Chloride 102 Carbon Dioxide 23 Anion Gap 18 BUN 86 H Creatinine 2.8 H Est GFR ( Amer) 19 Est GFR (Non-Af Amer) 16 POC Glucose (mg/dL) 192 H Random Glucose 174 H Calcium 8.0 L Total Bilirubin 1.4 H AST 46 H D ALT 44 Alkaline Phosphatase 203 H Total Protein 5.4 L Albumin 2.4 L Globulin 3.1 Albumin/Globulin Ratio 0.8 L EKG/Cardiology Studies: Cardiology / EKG Studies 10/23/17 08:15 EKG [ELECTROCARDIOGRAM] Stat Comment: Mode Of Transportation: PORTABLE Reason For Exam: new onset A-fib/Sinus Tachycardia Fingerstick Blood Sugar Results: 171 Critical Care Progress Note - Nutrition Nutrition: Nutrition Category Date Time Status NPO Diet [DIET] Diets 10/12/17 Breakfast Active Assessment/Plan - Assessment and Plan (Free Text) Assessment: Assessment and Plan (Free Text) Assessment: Resp failure: PNA: multilobar Influenza NAHOMI: oliguric, on HD Thrombocytopenia : improviing Edema A fib Plan: HD today Not on any heparin, monitor platlets Heam consult K: replaced On meropenum Tube feeding Prognosis is poor , family to decide about level of care or terminal extubation , by Wednesday.
[2017-10-24] MEDS ORDERED: Epoetin Alfa 4000 UNIT/ML Inj IV ONE (09:59)
--- NOTE | 2017-10-24 10:42 | RAD ---
HISTORY: Intubated COMPARISON: 10/23/2017 FINDINGS: LUNGS: No significant change in diffuse bilateral interstitial infiltrates compatible with CHF. PLEURA: No significant pleural effusion identified, no pneumothorax apparent. CARDIOVASCULAR: Normal. OSSEOUS STRUCTURES: No significant abnormalities. VISUALIZED UPPER ABDOMEN: Normal. OTHER FINDINGS: ETT above the emmanuel. IMPRESSION: No significant change in diffuse bilateral interstitial infiltrates compatible with CHF.
--- NOTE | 2017-10-24 11:32 | CP.PCM.PN ---
Subjective - Date & Time of Evaluation Date of Evaluation: 10/24/17 Time of Evaluation: 11:31 - Subjective Subjective: Follow up Nephrology Consultation Note Assessment: critical Acute Kidney Injury (N17.9) with fluid overload now on HD pneumonia, acute influenza, respi failure, thrombocytopenia, Anemia Hypokalemia Plan Will plan for HD today as ordered. next HD tomorrow as well maintain hemodynamics stable Patient not on ACEI/ARB due to recent NAHOMI Monitor Input/Output, daily weights and renal function with basic metabolic panel will give epogen with HD Dose meds/antibiotics for reduced GFR. Avoid fleets enema/magnesium based laxatives. Avoid nephrotoxins/NSAIDs/ iodinated contrast (unless needed emergently) Glycemic control Further work up for as per primary team Thanks for allowing me to participate in care of your patient. Will follow patient with you. Please call if any Qs. d/w team Dr Dilip Alvarenga Office: [phone] Subjective: unable pt intubated Physical Examination: General Appearance: Comfortable, in no acute respiratory distress, Vitals reviewed and noted as below Head; Atraumatic, normocephalic ENT: orally intubated EYES: Pupils are equal, round and reactive to light accommodation. Eye muscles and extraocular movement intact. Sclera is anicteric. Neck; supple no lymphadenopathy, no thyromegaly or bruit Lungs: Normal respiratory rate/effort. Breath sounds bilateral equal and clear anteriorly Heart: Normal rate. s1s2 normal. No rub or gallop. Extremities: 2+ edema. No varicose veins Neurological: Patient is sedated Skin: Warm and dry. Normal turgor. No rash. Palpitation: Normal elasticity for age Abdomen: Abdomen is soft. Bowel sounds +. There is no abdominal tenderness, no guarding/rigidity no organomegaly Psych: unable MSK: no joint tenderness or swelling. Digits and nails normal, no deformity : kidney or bladder not palpable Access: femoral shiley Labs/imaging reviewed. Past medical history, past surgical history, family history, social history, allergy reviewed and noted as below Family hx: no hx of CKD. Rest non-contributory Objective - Vital Signs/Intake and Output Vital Signs (last 24 hours): Temp Pulse Resp BP Pulse Ox 98.5 F 102 H 21 140/46 L 96 10/24/17 08:00 10/24/17 10:00 10/24/17 10:00 10/24/17 10:00 10/24/17 10:00 Intake and Output: 10/24/17 10/24/17 06:59 18:59 Intake Total 140 160 Output Total 85 Balance 55 160 - Medications Medications: Current Medications Acetaminophen (Tylenol 325mg Tab) 975 mg PO ONCE PRN PRN Reason: Fever >100.4 F Atorvastatin Calcium (Lipitor) 20 mg PO DAILY [facility] Last Admin: 10/24/17 09:50 Dose: 20 mg Epoetin [place] (Procrit) 4,000 unit IV TTS [place] Haloperidol Lactate (Haldol) 1 mg IVP Q6 PRN PRN Reason: Agitation Meropenem 500 mg/ Sodium (Chloride) 100 mls @ 100 mls/hr IVPB Q12 [place] PRN Reason: Protocol Last Admin: 10/23/17 21:33 Dose: 100 mls/hr Insulin Human Lispro (Humalog) 0 units SC ACHS [place] PRN Reason: Protocol Last Admin: 10/23/17 21:32 Dose: Not Given Ipratropium [place] (Atrovent) 0.5 mg IH RQ6 [facility] Last Admin: 10/24/17 08:05 Dose: 0.5 mg Levalbuterol HCl (Xopenex) 0.63 mg INH RQ8 [facility] Last Admin: 10/24/17 08:05 Dose: Not Given Levothyroxine Sodium (Synthroid) 50 mcg PO DAILY@0630 [facility] Last Admin: 10/24/17 06:18 Dose: 50 mcg Metoclopramide HCl (Reglan) 10 mg IVP Q8 [facility] Last Admin: 10/24/17 09:31 Dose: 10 mg Pantoprazole Sodium (Protonix Inj) 40 mg IVP Q12H [facility] Last Admin: 10/24/17 09:31 Dose: 40 mg - Labs Labs: 10/24/17 04:00 10/24/17 05:28 PT 16.2 Seconds (9.8-13.1) H 10/21/17 04:20 INR 1.5 (0.9-1.2) H 10/21/17 04:20 APTT 24.0 Seconds (25.6-37.1) L D 10/21/17 04:20
[2017-10-24] MEDS: Insulin Lispro (humaLOG) 100 Units/ml Inj SC SCH ×4 (11:40→21:11)
--- NOTE | 2017-10-24 12:40 | CP.PCM.CON ---
History of Present Illness - History of Present Illness History of Present Illness: This is a 87 yrs old female who is visiting from [place] and came in to the ER with c/o fever, cough and respiratory distress. She was found to be positive for the influenza virus and had diffuse lung consolidations diagnosed to be pneyumonia. on admission her WBC was elevated but the hgb has slowly decreased, and over the past few days the platelets have been low as well. nSo far she has received 2 units of packed red blood cells. Her platelets yesterday were 28 and she was transfused 2 units of plarelets,and today her platelets were 58K. She has been septic, was on lovenox , and has been on many antibiotics all of which can cause thrombocytopenia. The lovenox has been stopped, Pt has been intubated for a while and a discussion is to be had with the family regarding terminal extubation or placing a trac tube. She is now on dialysis, . She has a past h/o HTN, hypercholesterolemia and DM. Past Patient History - Past Social History Smoking Status: Never Smoked Alcohol: None Drugs: Denies Home Situation {Lives}: With Family - CARDIAC Hx Cardiac Disorders: Yes Hx Hypercholesterolemia: Yes Hx Hypertension: Yes - PULMONARY Hx Respiratory Disorders: Yes Hx Pneumonia: Yes - NEUROLOGICAL Hx Neurological Disorder: No - HEENT Hx HEENT Problems: No - RENAL Hx Chronic Kidney Disease: No - ENDOCRINE/METABOLIC Hx Endocrine Disorders: Yes Hx Diabetes Mellitus Type 2: Yes Hx Hypothyroidism: Yes - HEMATOLOGICAL/ONCOLOGICAL Hx Blood Disorders: No - INTEGUMENTARY Hx Dermatological Problems: No - MUSCULOSKELETAL/RHEUMATOLOGICAL Hx Musculoskeletal Disorders: Yes Hx Falls: Yes - GASTROINTESTINAL Hx Gastrointestinal Disorders: No - GENITOURINARY/GYNECOLOGICAL Hx Genitourinary Disorders: No - PSYCHIATRIC Hx Psychophysiologic Disorder: Yes Hx Anxiety: Yes Hx Substance Use: No Meds Allergies/Adverse Reactions: Allergies Allergy/AdvReac Type Severity Reaction Status Date / Time No Known Allergies Allergy Verified 10/07/17 00:35 - Medications Medications: Current Medications Acetaminophen (Tylenol 325mg Tab) 975 mg PO ONCE PRN PRN Reason: Fever >100.4 F Atorvastatin Calcium (Lipitor) 20 mg PO DAILY [facility] Last Admin: 10/24/17 09:50 Dose: 20 mg Epoetin [place] (Procrit) 4,000 unit IV MWF [facility] Haloperidol Lactate (Haldol) 1 mg IVP Q6 PRN PRN Reason: Agitation Meropenem 500 mg/ Sodium (Chloride) 100 mls @ 100 mls/hr IVPB Q12 [place] PRN Reason: Protocol Last Admin: 10/23/17 21:33 Dose: 100 mls/hr Insulin Human Lispro (Humalog) 0 units SC ACHS [place] PRN Reason: Protocol Last Admin: 10/24/17 11:41 Dose: 2 units Ipratropium [place] (Atrovent) 0.5 mg IH RQ6 [facility] Last Admin: 10/24/17 08:05 Dose: 0.5 mg Levalbuterol HCl (Xopenex) 0.63 mg INH RQ8 [facility] Last Admin: 10/24/17 08:05 Dose: Not Given Levothyroxine Sodium (Synthroid) 50 mcg PO DAILY@0630 [facility] Last Admin: 10/24/17 06:18 Dose: 50 mcg Metoclopramide HCl (Reglan) 10 mg IVP Q8 [facility] Last Admin: 10/24/17 09:31 Dose: 10 mg Pantoprazole Sodium (Protonix Inj) 40 mg IVP Q12H [facility] Last Admin: 10/24/17 09:31 Dose: 40 mg Physical Exam - Additional Findings Additional findings: Physical exam; Intubated, not responding to verbal stimuli. neck; Supple, no adenopathy Chest ; Air entry poor , both scattered rhonchi and rales. Heart;Tachycardia, no murmur Abd; Soft, no mass, no h/s megaly Results - Vital Signs Recent Vital Signs: Last Vital Signs Temp 98.5 F 10/24/17 12:00 Pulse 95 H 10/24/17 12:00 Resp 23 10/24/17 12:00 BP 122/41 L 10/24/17 12:00 Pulse Ox 98 10/24/17 12:00 - Labs Result Diagrams: 10/24/17 04:00 10/24/17 05:28 Labs: Laboratory Results - last 24 hr 10/23/17 10/23/17 10/23/17 04:19 16:41 21:21 WBC RBC Hgb Hct MCV MCH MCHC RDW Plt Count Neutrophils % (Manual) 91 H Lymphocytes % (Manual) 5 L Monocytes % (Manual) 3 Eosinophils % (Manual) 1 Toxic Granulation Present Platelet Estimate Decreased L Hypochromasia (manual) Slight Basophilic Stippling Slight Anisocytosis (manual) Slight Tear Drop Cells Slight Ovalocytes Slight pCO2 pO2 HCO3 ABG pH ABG Total CO2 ABG O2 Saturation ABG O2 Content ABG Base Excess ABG Hemoglobin ABG Carboxyhemoglobin POC ABG HHb (Measured) ABG Methemoglobin ABG O2 Capacity Michael Test A-a O2 Difference Hgb O2 Saturation Vent Mode Mechanical Rate FiO2 Tidal Volume PEEP Sodium Potassium Chloride Carbon Dioxide Anion Gap BUN Creatinine Est GFR ( Amer) Est GFR (Non-Af Amer) POC Glucose (mg/dL) 189 H 171 H Random Glucose Calcium Total Bilirubin AST ALT Alkaline Phosphatase Total Protein Albumin Globulin Albumin/Globulin Ratio 10/24/17 10/24/17 10/24/17 04:00 04:00 05:28 WBC 13.0 H RBC 2.76 L Hgb 8.1 L Hct 24.7 L MCV 89.4 MCH 29.3 MCHC 32.8 L RDW 15.2 H Plt Count 58 L D Neutrophils % (Manual) Lymphocytes % (Manual) Monocytes % (Manual) Eosinophils % (Manual) Toxic Granulation Platelet Estimate Hypochromasia (manual) Basophilic Stippling Anisocytosis (manual) Tear Drop Cells Ovalocytes pCO2 39 pO2 81 HCO3 24.0 ABG pH 7.39 ABG Total CO2 24.8 ABG O2 Saturation 98.9 H ABG O2 Content 11.6 L ABG Base Excess -1.2 ABG Hemoglobin 8.5 L ABG Carboxyhemoglobin 2.0 H POC ABG HHb (Measured) 1.1 ABG Methemoglobin 1.0 ABG O2 Capacity 11.7 L Michael Test Yes A-a O2 Difference 227.0 Hgb O2 Saturation 95.9 Vent Mode A/c Mechanical Rate 14 FiO2 50.0 Tidal Volume 400 PEEP 10 Sodium 140 Potassium 3.4 L Chloride 102 Carbon Dioxide 23 Anion Gap 18 BUN 86 H Creatinine 2.8 H Est GFR ( Amer) 19 Est GFR (Non-Af Amer) 16 POC Glucose (mg/dL) Random Glucose 174 H Calcium 8.0 L Total Bilirubin 1.4 H AST 46 H D ALT 44 Alkaline Phosphatase 203 H Total Protein 5.4 L Albumin 2.4 L Globulin 3.1 Albumin/Globulin Ratio 0.8 L 10/24/17 10/24/17 05:36 11:37 WBC RBC Hgb Hct MCV MCH MCHC RDW Plt Count Neutrophils % (Manual) Lymphocytes % (Manual) Monocytes % (Manual) Eosinophils % (Manual) Toxic Granulation Platelet Estimate Hypochromasia (manual) Basophilic Stippling Anisocytosis (manual) Tear Drop Cells Ovalocytes pCO2 pO2 HCO3 ABG pH ABG Total CO2 ABG O2 Saturation ABG O2 Content ABG Base Excess ABG Hemoglobin ABG Carboxyhemoglobin POC ABG HHb (Measured) ABG Methemoglobin ABG O2 Capacity Michael Test A-a O2 Difference Hgb O2 Saturation Vent Mode Mechanical Rate FiO2 Tidal Volume PEEP Sodium Potassium Chloride Carbon Dioxide Anion Gap BUN Creatinine Est GFR ( Amer) Est GFR (Non-Af Amer) POC Glucose (mg/dL) 192 H 223 H Random Glucose Calcium Total Bilirubin AST ALT Alkaline Phosphatase Total Protein Albumin Globulin Albumin/Globulin Ratio Assessment & Plan - Assessment and Plan (Free Text) Assessment: Impression; Thrombocytopenia could be secondary to sepsis and the lovenox, Plan: Plan; Lovenox has been held. She is on dialysis and antibiotics. Will follow, - Date & Time Date: 10/24/17 Time: 12:58
--- NOTE | 2017-10-24 14:00 | CP.PCM.PN ---
Subjective - Date & Time of Evaluation Date of Evaluation: 10/24/17 Time of Evaluation: 08:00 - Subjective Subjective: seen in ICU being dialyzed arousable confused intubated afebrile No new + cultures Objective - Vital Signs/Intake and Output Vital Signs (last 24 hours): Temp Pulse Resp BP Pulse Ox 98.5 F 95 H 23 122/41 L 98 10/24/17 12:00 10/24/17 12:00 10/24/17 12:00 10/24/17 12:00 10/24/17 12:00 Intake and Output: 10/24/17 10/24/17 06:59 18:59 Intake Total 140 160 Output Total 85 Balance 55 160 - Medications Medications: Current Medications Acetaminophen (Tylenol 325mg Tab) 975 mg PO ONCE PRN PRN Reason: Fever >100.4 F Atorvastatin Calcium (Lipitor) 20 mg PO DAILY [facility] Last Admin: 10/24/17 09:50 Dose: 20 mg Epoetin Crispin (Procrit) 4,000 unit IV MWF [facility] Haloperidol Lactate (Haldol) 1 mg IVP Q6 PRN PRN Reason: Agitation Meropenem 500 mg/ Sodium (Chloride) 100 mls @ 100 mls/hr IVPB Q12 [place] PRN Reason: Protocol Last Admin: 10/23/17 21:33 Dose: 100 mls/hr Insulin Human Lispro (Humalog) 0 units SC ACHS [place] PRN Reason: Protocol Last Admin: 10/24/17 11:41 Dose: 2 units Ipratropium [place] (Atrovent) 0.5 mg IH RQ6 [facility] Last Admin: 10/24/17 08:05 Dose: 0.5 mg Levalbuterol HCl (Xopenex) 0.63 mg INH RQ8 [facility] Last Admin: 10/24/17 08:05 Dose: Not Given Levothyroxine Sodium (Synthroid) 50 mcg PO DAILY@0630 [facility] Last Admin: 10/24/17 06:18 Dose: 50 mcg Metoclopramide HCl (Reglan) 10 mg IVP Q8 [facility] Last Admin: 10/24/17 09:31 Dose: 10 mg Pantoprazole Sodium (Protonix Inj) 40 mg IVP Q12H [facility] Last Admin: 10/24/17 09:31 Dose: 40 mg - Labs Labs: 10/24/17 04:00 10/24/17 05:28 PT 16.2 Seconds (9.8-13.1) H 10/21/17 04:20 INR 1.5 (0.9-1.2) H 10/21/17 04:20 APTT 24.0 Seconds (25.6-37.1) L D 10/21/17 04:20 - Constitutional Appears: Non-toxic, Cachectic, Chronically Ill - Head Exam Head Exam: NORMOCEPHALIC - Eye Exam Eye Exam: PERRL. absent: Scleral icterus - ENT Exam ENT Exam: Mucous Membranes Dry - Neck Exam Neck Exam: absent: Lymphadenopathy - Respiratory Exam Respiratory Exam: Decreased Breath Sounds, Rhonchi - Cardiovascular Exam Cardiovascular Exam: REGULAR RHYTHM, +S1, +S2 - GI/Abdominal Exam GI & Abdominal Exam: Distended, Soft. absent: Tenderness - Rectal Exam Rectal Exam: Deferred - Exam Exam: NORMAL INSPECTION - Extremities Exam Extremities Exam: absent: Pedal Edema - Back Exam Back Exam: absent: CVA tenderness (L), CVA tenderness (R) - Neurological Exam Neurological Exam: Altered - Psychiatric Exam Psychiatric exam: Depressed - Skin Skin Exam: Dry Assessment and Plan (1) Influenza Status: Acute (2) Pneumonia Status: Acute (3) Sepsis Status: Acute (4) UTI (urinary tract infection) Status: Acute - Assessment and Plan (Free Text) Assessment: s/p Influenza/ pneumonia/ resp failure/ septic shock/ ARDS/ ATN secondary to sepsis may need trach and PEG poor prognosis
[2017-10-24] MEDS: Meropenem 500 MG in Sodium Chloride 0.9% 100 ML IVPB SCH ×2 (15:13→20:28)
--- NOTE | 2017-10-24 16:37 | CP.PCM.PN ---
Subjective - Date & Time of Evaluation Date of Evaluation: 10/24/17 - Subjective Subjective: F/U Respiratory failure. Intubated Objective - Vital Signs/Intake and Output Vital Signs (last 24 hours): Temp Pulse Resp BP Pulse Ox 98.1 F 89 20 100/35 L 100 10/24/17 16:00 10/24/17 16:00 10/24/17 16:00 10/24/17 16:00 10/24/17 16:00 Intake and Output: 10/24/17 10/24/17 06:59 18:59 Intake Total 140 270 Output Total 85 2500 Balance 55 -2230 - Medications Medications: Current Medications Acetaminophen (Tylenol 325mg Tab) 975 mg PO ONCE PRN PRN Reason: Fever >100.4 F Atorvastatin Calcium (Lipitor) 20 mg PO DAILY [facility] Last Admin: 10/24/17 09:50 Dose: 20 mg Epoetin [place] (Procrit) 4,000 unit IV MWF [facility] Haloperidol Lactate (Haldol) 1 mg IVP Q6 PRN PRN Reason: Agitation Meropenem 500 mg/ Sodium (Chloride) 100 mls @ 100 mls/hr IVPB Q12 [place] PRN Reason: Protocol Last Admin: 10/24/17 15:13 Dose: 100 mls/hr Insulin Human Lispro (Humalog) 0 units SC ACHS [place] PRN Reason: Protocol Last Admin: 10/24/17 16:13 Dose: Not Given Ipratropium [place] (Atrovent) 0.5 mg IH RQ6 [facility] Last Admin: 10/24/17 08:05 Dose: 0.5 mg Levalbuterol HCl (Xopenex) 0.63 mg INH RQ8 [facility] Last Admin: 10/24/17 15:46 Dose: Not Given Levothyroxine Sodium (Synthroid) 50 mcg PO DAILY@0630 [facility] Last Admin: 10/24/17 06:18 Dose: 50 mcg Metoclopramide HCl (Reglan) 10 mg IVP Q8 [facility] Last Admin: 10/24/17 16:11 Dose: 10 mg Pantoprazole Sodium (Protonix Inj) 40 mg IVP Q12H [facility] Last Admin: 10/24/17 09:31 Dose: 40 mg - Labs Labs: 10/24/17 04:00 10/24/17 05:28 PT 16.2 Seconds (9.8-13.1) H 10/21/17 04:20 INR 1.5 (0.9-1.2) H 10/21/17 04:20 APTT 24.0 Seconds (25.6-37.1) L D 10/21/17 04:20 - Constitutional Appears: Chronically Ill - Head Exam Head Exam: NORMAL INSPECTION - Eye Exam Pupil Exam: PERRL - ENT Exam Additional comments: intubated , ogt - Neck Exam Neck Exam: Normal Inspection - Respiratory Exam Respiratory Exam: Decreased Breath Sounds (at bases) - Cardiovascular Exam Cardiovascular Exam: REGULAR RHYTHM - GI/Abdominal Exam GI & Abdominal Exam: Soft, Normal Bowel Sounds - Extremities Exam Additional comments: edema - Back Exam Additional comments: open sacral lesion - Neurological Exam Additional comments: intubated , minimal response to tacttl stimuli - Skin Skin Exam: Warm Assessment and Plan (1) Respiratory failure Status: Acute (2) Pneumonia Status: Acute (3) Influenza A Status: Acute (4) Sepsis Status: Acute (5) Anemia Status: Acute (6) NAHOMI (acute kidney injury) Status: Acute - Assessment and Plan (Free Text) Plan: intubated, Platelet improved to 58 post transfusion , Hgb 8.1 , continue ventilatory support, Merren , Xopenex , Atrovent , dialysis and rest of treatment, prognosis very poor . Patient,s family are thinking regarding terminal extubation vs Tracheostomy and continue Full Code
--- NOTE | 2017-10-24 17:41 | PN ---
DATE: SUBJECTIVE: The patient is sedated on the ventilator, FiO2 was increased to 60%. She is currently undergoing hemodialysis without heparin. She did receive one unit of platelets. PHYSICAL EXAMINATION VITAL SIGNS: Blood pressure 122/41, heart rate 95, temperature 98.5 and respirations 23. HEENT: Normocephalic. CHEST: Bilateral rhonchi. HEART: S1 and S2 regular. ABDOMEN: Soft. EXTREMITIES: 1+ trace leg edema. LABORATORY DATA: Hemoglobin and hematocrit 8.1 and 24.7, white count 15.0 and platelet count 58,000. SMA-7, sodium 140, potassium 3.4, chloride 102, CO2 of 23, glucose 174, BUN 86 and creatinine 2.8. ASSESSMENT: 1. Respiratory failure. 2. Bilateral pneumonia. 3. Acute renal failure. 4. Thrombocytopenia requiring platelet transfusion. 5. Borderline troponin elevation. 6. Mild hypokalemia. 7. Paroxysmal atrial fibrillation. RECOMMENDATIONS: Continue current Lipitor 20 mg once a day, continue IV meropenem at 500 mg q.12 hours, Synthroid at 50 mcg once a day. I did discuss the case with the primary physician Dr. Pak and I reviewed the Hematology evaluation and impression was thrombocytopenia, could be secondary to sepsis and Lovenox. Platelet antibody testing results are still pending. Mitchell Hollis MD
[2017-10-25] MEDS: Levalbuterol 0.63 MG/3 ML Inhal Soln UD INH SCH ×3 (00:35→15:56)
[2017-10-25] MEDS: Ipratropium 0.02% Inhal Soln (0.5 mg/2.5 ml) UD IH SCH ×4 (01:01→19:22)
[2017-10-25 05:25] LABS: ABG ALLEN TEST YES; ARTERIAL BLOOD GAS HCO3 26.4 mmol/L (21-28); ARTERIAL BLOOD GAS HEMOGLOBIN 7.9 g/dL (11.7-17.4); ARTERIAL BLOOD GAS O2 CONTENT 11.1 ML/dL (15-23); ARTERIAL BLOOD GAS O2 SAT 100.7 % (95-98); ARTERIAL BLOOD GAS PCO2 41 mm/Hg (35-45); ARTERIAL BLOOD GAS PH 7.42 (7.35-7.45); ARTERIAL BLOOD GAS PO2 151 mm/Hg (80-100); ARTERIAL BLOOD GAS TCO2 27.9 mmol/L (22-28)
[2017-10-25 05:29] LABS: CALCIUM 7.9 mg/dL (8.4-10.2)
[2017-10-25 05:33] LABS: BASO % 0.2 % (0.0-2.0); EOS # 0.5 K/uL (0.0-0.7); EOS % 4.9 % (0.0-4.0); HEMOGLOBIN 8.1 g/dL (12.0-16.0); LYMPH % 10.1 % (20.0-40.0); MEAN CELL VOLUME 89.3 fl (81.0-99.0); MEAN CORPUSCULAR HEMOGLOBIN 29.1 pg (27.0-31.0); MEAN CORPUSCULAR HGB CONC 32.6 g/dL (33.0-37.0); MEAN PLATELET VOLUME 7.2 fl (7.2-11.7); MONO # 0.5 K/uL (0.0-0.8); MONO % 5.2 % (0.0-10.0); NEUT # 7.9 K/uL (1.8-7.0); NEUT % 79.6 % (50.0-75.0); NRBC % 0.1 % (0.0-0.0); RBC 2.77 Mil/uL (3.80-5.20); RED CELL DISTRIBUTION WIDTH 15.5 % (11.5-14.5)
[2017-10-25] MEDS: Insulin Lispro (humaLOG) 100 Units/ml Inj SC SCH ×6 (07:14→21:09)
[2017-10-25] MEDS: Levothyroxine 50 MCG TAB PO SCH (07:14)
--- NOTE | 2017-10-25 07:39 | CP.CCUPN ---
CCU Subjective - Physician Review Subjective (Free Text): 10/11/17 18:13 The patient was Seen and examined by me at the bedside during ICU round, Medical records reviewed and Management issues were discussed and formulated with the house staff. Events reviewed 87 Years old Female with PMHx of HTN, Hypercholesterolemia and Diabetes Who presented to the ED on 10/07 complaining of worsening cough, congestion and fevers. Found to have UTI and Influenza A with superimposed multilobar pneumonia. Placed on droplet isolation Started on IV antibiotics and Tamiflu and then Admitted to telemetry On 10/11 ICU called for worsening Respiratory status On 10/12, Patient looks restless, and lethargic, discussed patient's respiratory status with patient's next of kin (daughter) and she was orally intubated, Meds Given Versed, Succinylcholine. CXR showed worsening pneumonia, She remains orally intubated, off sedations (On Haldol 1 mg IVP Q6 PRN) ICU course noted for worsening renal function and now she is on HD Afebrile, NSR on the monitor Last 24H I&O 1245/110 This morning labs revealed Leucocytosis trending down, worsening Thrombocytopenia Pt had dialysis yesterday, As per Nephro repeat dialysis today CCU Objective - Vital Signs / Intake & Output Vital Signs (Last 4 hours): Vital Signs Temp Pulse Resp BP Pulse Ox 10/25/17 04:24 97.6 F 87 19 112/44 L 100 Intake and Output (Last 8hrs): Intake & Output 10/24/17 10/25/17 10/25/17 22:59 06:59 14:59 Intake Total 518 52 Output Total 2550 -2031 52 Intake: IV 28 12 Intake, Piggyback 250 Tube Feeding 140 40 Free Water Flush 100 Output: Urine 50 Urethral (Jamil) 50 Ultrafiltrate 2500 Other: # Bowel Movements 1 - Physical Exam Head: Positive for: Atraumatic, Normocephalic. Negative for: Tenderness, Contusion Pupils: Positive for: PERRL. Negative for: Sluggish, Non-Reactive Extroacular Muscles: Negative for: Gaze Palsy, Entrapment Conjunctiva: Positive for: Normal. Negative for: Injected, Icteric Mouth: Positive for: Moist Mucous Membranes Pharnyx: Positive for: Normal Nose (External): Positive for: Atraumatic Nose (Internal): Positive for: Normal Inspection Neck: Positive for: Trachea Midline. Negative for: Meningeal Signs, MIDLINE TENDERNESS, Paraspinal Tenderness, JVD, Lymphadenopathy, Bruit, Other Respiratory/Chest: Positive for: Clear to Auscultation, Good Air Exchange. Negative for: Respiratory Distress, Accessory Muscle Use, Wheezes, Rales, Rhonchi, Tender to Palpation Cardiovascular: Positive for: Regular Rate and Rhythm, Normal S1, S2, Peripheal Pulses Present. Negative for: Murmurs, Irregular Rhythm, Tachycardic Abdomen: Positive for: Normal Bowel Sounds. Negative for: Tenderness, Distention, Peritoneal Signs Upper Extremity: Positive for: Normal Inspection, Edema (no pitting edema in upper/lower extremities), NORMAL PULSES, Capillary Refill < 2s. Negative for: Cyanosis Lower Extremity: Positive for: Edema (in lower extremities), NORMAL PULSES, Capillary Refill < 2 s Neurological: Positive for: Other (sedated on mechanical ventilation) Skin: Positive for: Warm, Dry, Pale Psychiatric: Positive for: Other (Intubated and sedated). Negative for: Alert, Oriented x 3 - Medications Active Medications: Active Medications Generic Name Dose Route Start Last Admin Trade Name Freq PRN Reason Stop Dose Admin Acetaminophen 975 mg 10/11/17 20:15 Tylenol 325mg Tab PO ONCE PRN Fever >100.4 F Atorvastatin Calcium 20 mg 10/12/17 09:00 10/24/17 09:50 Lipitor PO 20 mg DAILY MI Administration Epoetin Crispin 4,000 unit 10/25/17 09:00 Procrit IV MWF MI Haloperidol Lactate 1 mg 10/11/17 20:15 Haldol IVP Q6 PRN Agitation Meropenem 500 mg/ Sodium 100 mls @ 100 mls/hr 10/15/17 10:30 10/24/17 20:28 Chloride IVPB 100 mls/hr Q12 MI Administration Protocol Insulin Human Lispro 0 units 10/11/17 22:00 10/25/17 07:18 Humalog SC 2 units ACHS MI Administration Protocol Ipratropium [place] 0.5 mg 10/18/17 14:00 10/25/17 01:01 Atrovent IH 0.5 mg RQ6 MI Administration Levalbuterol HCl 0.63 mg 10/12/17 00:00 10/25/17 00:35 Xopenex INH Not Given RQ8 MI Levothyroxine Sodium 50 mcg 10/12/17 06:30 10/25/17 07:14 Synthroid PO 50 mcg DAILY@0630 MI Administration Metoclopramide HCl 10 mg 10/19/17 01:00 10/25/17 00:44 Reglan IVP 10 mg Q8 MI Administration Pantoprazole Sodium 40 mg 10/19/17 22:00 10/24/17 21:10 Protonix Inj IVP 40 mg Q12H MI Administration - Patient Studies Lab Studies: Lab Studies 10/25/17 10/25/17 10/25/17 Range/Units 06:12 05:16 04:50 WBC (4.8-10.8) K/uL RBC (3.80-5.20) Mil/uL Hgb (12.0-16.0) g/dL Hct (34.0-47.0) % MCV (81.0-99.0) fl MCH (27.0-31.0) pg MCHC (33.0-37.0) g/dL RDW (11.5-14.5) % MPV (7.2-11.7) fl Neut % (Auto) (50.0-75.0) % Lymph % (Auto) (20.0-40.0) % [place] % (Auto) (0.0-10.0) % Eos % (Auto) (0.0-4.0) % Baso % (Auto) (0.0-2.0) % Neut # (Auto) (1.8-7.0) K/uL Lymph # (Auto) (1.0-4.3) K/uL [place] # (Auto) (0.0-0.8) K/uL Eos # (Auto) (0.0-0.7) K/uL Baso # (Auto) (0.0-0.2) K/uL pCO2 41 (35-45) mm/Hg pO2 151 H (80-100) mm/Hg HCO3 26.4 (21-28) mmol/L ABG pH 7.42 (7.35-7.45) ABG Total CO2 27.9 (22-28) mmol/L ABG O2 Saturation 100.7 H (95-98) % ABG O2 Content 11.1 L (15-23) ML/dL ABG Base Excess 1.9 (-2.0-3.0) mmol/L ABG Hemoglobin 7.9 L (11.7-17.4) g/dL ABG Carboxyhemoglobin 2.6 H (0.5-1.5) % POC ABG HHb (Measured) -0.7 L (0.0-5.0) % ABG Methemoglobin 1.1 (0.0-3.0) % ABG O2 Capacity 11.0 L (16-24) mL/dL Michael Test Yes A-a O2 Difference 226.0 mm/Hg Hgb O2 Saturation 97.0 (95.0-98.0) % Vent Mode Prvc ac Mechanical Rate 14 FiO2 60.0 % Tidal Volume 400 PEEP 10 Sodium 139 (132-148) mmol/l Potassium 3.8 (3.6-5.0) MMOL/L Chloride 101 (98-107) mmol/L Carbon Dioxide 24 (22-30) mmol/L Anion Gap 18 (10-20) BUN 74 H (7-17) mg/dl Creatinine 2.3 H (0.7-1.2) mg/dl Est GFR ( Amer) 24 Est GFR (Non-Af Amer) 20 POC Glucose (mg/dL) 209 H (65-110) mg/dL Random Glucose 161 H (65-105) mg/dL Calcium 7.9 L (8.4-10.2) mg/dL 10/25/17 10/24/17 10/24/17 Range/Units 04:50 20:43 16:08 WBC 10.0 (4.8-10.8) K/uL RBC 2.77 L (3.80-5.20) Mil/uL Hgb 8.1 L (12.0-16.0) g/dL Hct 24.8 L (34.0-47.0) % MCV 89.3 (81.0-99.0) fl MCH 29.1 (27.0-31.0) pg MCHC 32.6 L (33.0-37.0) g/dL RDW 15.5 H (11.5-14.5) % MPV 7.2 (7.2-11.7) fl Neut % (Auto) 79.6 H (50.0-75.0) % Lymph % (Auto) 10.1 L (20.0-40.0) % [place] % (Auto) 5.2 (0.0-10.0) % Eos % (Auto) 4.9 H (0.0-4.0) % Baso % (Auto) 0.2 (0.0-2.0) % Neut # (Auto) 7.9 H (1.8-7.0) K/uL Lymph # (Auto) 1.0 (1.0-4.3) K/uL [place] # (Auto) 0.5 (0.0-0.8) K/uL Eos # (Auto) 0.5 (0.0-0.7) K/uL Baso # (Auto) 0.0 (0.0-0.2) K/uL pCO2 (35-45) mm/Hg pO2 (80-100) mm/Hg HCO3 (21-28) mmol/L ABG pH (7.35-7.45) ABG Total CO2 (22-28) mmol/L ABG O2 Saturation (95-98) % ABG O2 Content (15-23) ML/dL ABG Base Excess (-2.0-3.0) mmol/L ABG Hemoglobin (11.7-17.4) g/dL ABG Carboxyhemoglobin (0.5-1.5) % POC ABG HHb (Measured) (0.0-5.0) % ABG Methemoglobin (0.0-3.0) % ABG O2 Capacity (16-24) mL/dL Michael Test A-a O2 Difference mm/Hg Hgb O2 Saturation (95.0-98.0) % Vent Mode Mechanical Rate FiO2 % Tidal Volume PEEP Sodium (132-148) mmol/l Potassium (3.6-5.0) MMOL/L Chloride (98-107) mmol/L Carbon Dioxide (22-30) mmol/L Anion Gap (10-20) BUN (7-17) mg/dl Creatinine (0.7-1.2) mg/dl Est GFR ( Amer) Est GFR (Non-Af Amer) POC Glucose (mg/dL) 145 H 144 H (65-110) mg/dL Random Glucose (65-105) mg/dL Calcium (8.4-10.2) mg/dL 10/24/17 Range/Units 11:37 WBC (4.8-10.8) K/uL RBC (3.80-5.20) Mil/uL Hgb (12.0-16.0) g/dL Hct (34.0-47.0) % MCV (81.0-99.0) fl MCH (27.0-31.0) pg MCHC (33.0-37.0) g/dL RDW (11.5-14.5) % MPV (7.2-11.7) fl Neut % (Auto) (50.0-75.0) % Lymph % (Auto) (20.0-40.0) % [place] % (Auto) (0.0-10.0) % Eos % (Auto) (0.0-4.0) % Baso % (Auto) (0.0-2.0) % Neut # (Auto) (1.8-7.0) K/uL Lymph # (Auto) (1.0-4.3) K/uL [place] # (Auto) (0.0-0.8) K/uL Eos # (Auto) (0.0-0.7) K/uL Baso # (Auto) (0.0-0.2) K/uL pCO2 (35-45) mm/Hg pO2 (80-100) mm/Hg HCO3 (21-28) mmol/L ABG pH (7.35-7.45) ABG Total CO2 (22-28) mmol/L ABG O2 Saturation (95-98) % ABG O2 Content (15-23) ML/dL ABG Base Excess (-2.0-3.0) mmol/L ABG Hemoglobin (11.7-17.4) g/dL ABG Carboxyhemoglobin (0.5-1.5) % POC ABG HHb (Measured) (0.0-5.0) % ABG Methemoglobin (0.0-3.0) % ABG O2 Capacity (16-24) mL/dL Michael Test A-a O2 Difference mm/Hg Hgb O2 Saturation (95.0-98.0) % Vent Mode Mechanical Rate FiO2 % Tidal Volume PEEP Sodium (132-148) mmol/l Potassium (3.6-5.0) MMOL/L Chloride (98-107) mmol/L Carbon Dioxide (22-30) mmol/L Anion Gap (10-20) BUN (7-17) mg/dl Creatinine (0.7-1.2) mg/dl Est GFR ( Amer) Est GFR (Non-Af Amer) POC Glucose (mg/dL) 223 H (65-110) mg/dL Random Glucose (65-105) mg/dL Calcium (8.4-10.2) mg/dL Laboratory Results - last 24 hr 10/24/17 10/24/17 10/24/17 11:37 16:08 20:43 WBC RBC Hgb Hct MCV MCH MCHC RDW MPV Neut % (Auto) Lymph % (Auto) [place] % (Auto) Eos % (Auto) Baso % (Auto) Neut # (Auto) Lymph # (Auto) [place] # (Auto) Eos # (Auto) Baso # (Auto) pCO2 pO2 HCO3 ABG pH ABG Total CO2 ABG O2 Saturation ABG O2 Content ABG Base Excess ABG Hemoglobin ABG Carboxyhemoglobin POC ABG HHb (Measured) ABG Methemoglobin ABG O2 Capacity Michael Test A-a O2 Difference Hgb O2 Saturation Vent Mode Mechanical Rate FiO2 Tidal Volume PEEP Sodium Potassium Chloride Carbon Dioxide Anion Gap BUN Creatinine Est GFR ( Amer) Est GFR (Non-Af Amer) POC Glucose (mg/dL) 223 H 144 H 145 H Random Glucose Calcium 10/25/17 10/25/17 10/25/17 04:50 04:50 05:16 WBC 10.0 RBC 2.77 L Hgb 8.1 L Hct 24.8 L MCV 89.3 MCH 29.1 MCHC 32.6 L RDW 15.5 H MPV 7.2 Neut % (Auto) 79.6 H Lymph % (Auto) 10.1 L [place] % (Auto) 5.2 Eos % (Auto) 4.9 H Baso % (Auto) 0.2 Neut # (Auto) 7.9 H Lymph # (Auto) 1.0 [place] # (Auto) 0.5 Eos # (Auto) 0.5 Baso # (Auto) 0.0 pCO2 41 pO2 151 H HCO3 26.4 ABG pH 7.42 ABG Total CO2 27.9 ABG O2 Saturation 100.7 H ABG O2 Content 11.1 L ABG Base Excess 1.9 ABG Hemoglobin 7.9 L ABG Carboxyhemoglobin 2.6 H POC ABG HHb (Measured) -0.7 L ABG Methemoglobin 1.1 ABG O2 Capacity 11.0 L Michael Test Yes A-a O2 Difference 226.0 Hgb O2 Saturation 97.0 Vent Mode Prvc ac Mechanical Rate 14 FiO2 60.0 Tidal Volume 400 PEEP 10 Sodium 139 Potassium 3.8 Chloride 101 Carbon Dioxide 24 Anion Gap 18 BUN 74 H Creatinine 2.3 H Est GFR ( Amer) 24 Est GFR (Non-Af Amer) 20 POC Glucose (mg/dL) Random Glucose 161 H Calcium 7.9 L 10/25/17 06:12 WBC RBC Hgb Hct MCV MCH MCHC RDW MPV Neut % (Auto) Lymph % (Auto) [place] % (Auto) Eos % (Auto) Baso % (Auto) Neut # (Auto) Lymph # (Auto) [place] # (Auto) Eos # (Auto) Baso # (Auto) pCO2 pO2 HCO3 ABG pH ABG Total CO2 ABG O2 Saturation ABG O2 Content ABG Base Excess ABG Hemoglobin ABG Carboxyhemoglobin POC ABG HHb (Measured) ABG Methemoglobin ABG O2 Capacity Michael Test A-a O2 Difference Hgb O2 Saturation Vent Mode Mechanical Rate FiO2 Tidal Volume PEEP Sodium Potassium Chloride Carbon Dioxide Anion Gap BUN Creatinine Est GFR ( Amer) Est GFR (Non-Af Amer) POC Glucose (mg/dL) 209 H Random Glucose Calcium Fingerstick Blood Sugar Results: 209 Review of Systems - Review of Systems Systems not reviewed;Unavailable: Intubated (Unable to obtain) Critical Care Progress Note - Ventilator Checklist Head of Bed 30 Degrees: Yes Daily Sedation Vacation: Yes Daily Assessment of Readiness to Wean: Yes Daily Spontaneous Breathing Trial: Yes PUD Prophalyxis: Yes DVT Prophylaxis: Yes Oral Care with Chlorhexidine Gluconate {CHG}: Yes - Extremities/Vascular Does the Patient have a Central Venous Catheter?: Yes Does the Patient need a Central Venous Catheter?: Yes Does the Patient have a Jamil Catheter?: Yes Does the Patient need a Jamil Catheter?: Yes - Nutrition Nutrition: Nutrition Category Date Time Status NPO Diet [DIET] Diets 10/12/17 Breakfast Active Assessment/Plan (1) Acute respiratory failure with hypoxia Current Visit: Yes Status: Acute Priority: High Comment: PRVC AC 14 TV 400 PEEP 10, FiO2 increased today morning from 50 to 60 % Next of kin and other family members declined Tracheostomy at this time Continue IV antibiotics as per ID, IV meropenum (2) Influenza due to unidentified influenza virus with pneumonia Current Visit: Yes Status: Acute Comment: Continue IV meropenum (3) NAHOMI (acute kidney injury) Current Visit: Yes Status: Acute Priority: High Comment: On daily HD, as per renal (4) Influenza A Current Visit: Yes Status: Acute Priority: High (5) Thrombocytopenia Current Visit: Yes Status: Acute Comment: Plat count dropped to 23, No evidanceof bleeding at this time Will transfuse one unit today with dialysis (6) Sepsis Current Visit: Yes Status: Acute Priority: High
--- NOTE | 2017-10-25 08:17 | RAD ---
HISTORY: intubation COMPARISON: 10/24/2017 FINDINGS: Endotracheal tube terminates 2.5 cm proximal to the emmanuel. Nasogastric tube terminates in the stomach LUNGS: There is worsening pulmonary venous congestion with interval development of diffuse haziness in both lungs, worse on the right. PLEURA: Suspect small pleural effusions, no pneumothorax apparent. CARDIOVASCULAR: Normal. OSSEOUS STRUCTURES: No significant abnormalities. VISUALIZED UPPER ABDOMEN: Normal. OTHER FINDINGS: None. IMPRESSION: Endotracheal tube terminates 2.5 cm proximal to the emmanuel. Worsening congestive heart failure with presumable alveolar pulmonary edema in both lungs, worse on the right.
[2017-10-25] MEDS ORDERED: Epoetin Alfa 4000 UNIT/ML Inj IV SCH (09:00)
--- NOTE | 2017-10-25 09:08 | CP.PCM.PN ---
Subjective - Date & Time of Evaluation Date of Evaluation: 10/25/17 Time of Evaluation: 09:08 - Subjective Subjective: NEPHROLOGY PROGRESS NOTE Impression: Acute Kidney Injury (N17.9) with fluid overload now on HD pneumonia, acute influenza, respi failure, thrombocytopenia, Anemia Hypokalemia hyperphosphatemia Plan Will plan for HD tomorrow and than MWF CXR reviewed still w/ pulm edema Patient not on ACEI/ARB due to recent NAHOMI Monitor Input/Output, daily weights and renal function with basic metabolic panel epo w/ hd will start phoslo given continued dialysis dependency at this time rec placement of permacath dose abx for ESRD Subjective: intubated and sedated Physical Examination: General Appearance: intubated and sedated Vitals reviewed and noted as below Head; Atraumatic, normocephalic ENT: orally intubated EYES: Sclera is anicteric. Neck; supple no lymphadenopathy, no thyromegaly or bruit Lungs: coarse mechanical bs Heart: Normal rate. s1s2 normal. No rub or gallop. Extremities: 2+ edema. No varicose veins Neurological: Patient is sedated Skin: Warm and dry. Normal turgor. No rash. Palpitation: Normal elasticity for age Abdomen: Abdomen is soft. Bowel sounds +. There is no abdominal tenderness, no guarding/rigidity no organomegaly Psych: unable to assess intubated and sedated MSK: no joint tenderness or swelling. Digits and nails normal, no deformity : kidney or bladder not palpable Labs/imaging reviewed. Past medical history, past surgical history, family history, social history, allergy reviewed and noted as below Family hx: no hx of CKD. Rest non-contributory Objective - Vital Signs/Intake and Output Vital Signs (last 24 hours): Temp Pulse Resp BP Pulse Ox 98.5 F 105 H 22 105/33 L 100 10/25/17 08:00 10/25/17 08:00 10/25/17 08:00 10/25/17 08:00 10/25/17 08:00 Intake and Output: 10/25/17 10/25/17 06:59 18:59 Intake Total 224 Output Total 40 Balance 184 - Medications Medications: Current Medications Acetaminophen (Tylenol 325mg Tab) 975 mg PO ONCE PRN PRN Reason: Fever >100.4 F Atorvastatin Calcium (Lipitor) 20 mg PO DAILY MI Last Admin: 10/25/17 08:55 Dose: 20 mg Epoetin [place] (Procrit) 4,000 unit IV MWF REPLACED BY [facility] Haloperidol Lactate (Haldol) 1 mg IVP Q6 PRN PRN Reason: Agitation Meropenem 500 mg/ Sodium (Chloride) 100 mls @ 100 mls/hr IVPB Q12 MI PRN Reason: Protocol Last Admin: 10/24/17 20:28 Dose: 100 mls/hr Insulin Human Lispro (Humalog) 0 units SC ACHS REPLACED BY [facility] PRN Reason: Protocol Last Admin: 10/25/17 08:47 Dose: Not Given Ipratropium [place] (Atrovent) 0.5 mg IH RQ6 REPLACED BY [facility] Last Admin: 10/25/17 07:47 Dose: 0.5 mg Levalbuterol HCl (Xopenex) 0.63 mg INH RQ8 REPLACED BY [facility] Last Admin: 10/25/17 00:35 Dose: Not Given Levothyroxine Sodium (Synthroid) 50 mcg PO DAILY@0630 REPLACED BY [facility] Last Admin: 10/25/17 07:14 Dose: 50 mcg Metoclopramide HCl (Reglan) 10 mg IVP Q8 REPLACED BY [facility] Last Admin: 10/25/17 08:53 Dose: 10 mg Pantoprazole Sodium (Protonix Inj) 40 mg IVP Q12H REPLACED BY [facility] Last Admin: 10/24/17 21:10 Dose: 40 mg - Labs Labs: 10/25/17 04:50 10/25/17 04:50 PT 16.2 Seconds (9.8-13.1) H 10/21/17 04:20 INR 1.5 (0.9-1.2) H 10/21/17 04:20 APTT 24.0 Seconds (25.6-37.1) L D 10/21/17 04:20
--- NOTE | 2017-10-25 10:13 | CP.PCM.PN ---
Subjective - Date & Time of Evaluation Date of Evaluation: 10/25/17 Time of Evaluation: 10:01 - Subjective Subjective: General condition same. Pt's platelets are again only 23, she is having dialysis today and will need her count to be high. The platelets can be given wie dialysis, Pt is intubated not responding to verbal stimuli Objective - Vital Signs/Intake and Output Vital Signs (last 24 hours): Temp Pulse Resp BP Pulse Ox 98.5 F 105 H 22 105/33 L 100 10/25/17 08:00 10/25/17 08:00 10/25/17 08:00 10/25/17 08:00 10/25/17 08:00 Intake and Output: 10/25/17 10/25/17 06:59 18:59 Intake Total 224 Output Total 40 Balance 184 - Medications Medications: Current Medications Acetaminophen (Tylenol 325mg Tab) 975 mg PO ONCE PRN PRN Reason: Fever >100.4 F Atorvastatin Calcium (Lipitor) 20 mg PO DAILY [facility] Last Admin: 10/25/17 08:55 Dose: 20 mg Calcium Acetate (Phoslo) 2,001 mg PO WM [facility] Epoetin Crispin (Procrit) 4,000 unit IV MWF [facility] Haloperidol Lactate (Haldol) 1 mg IVP Q6 PRN PRN Reason: Agitation Meropenem 500 mg/ Sodium (Chloride) 100 mls @ 100 mls/hr IVPB Q12 MI PRN Reason: Protocol Last Admin: 10/24/17 20:28 Dose: 100 mls/hr Insulin Human Lispro (Humalog) 0 units SC ACHS MI PRN Reason: Protocol Last Admin: 10/25/17 08:47 Dose: Not Given Ipratropium [place] (Atrovent) 0.5 mg IH RQ6 [facility] Last Admin: 10/25/17 07:47 Dose: 0.5 mg Levalbuterol HCl (Xopenex) 0.63 mg INH RQ8 [facility] Last Admin: 10/25/17 00:35 Dose: Not Given Levothyroxine Sodium (Synthroid) 50 mcg PO DAILY@0630 [facility] Last Admin: 10/25/17 07:14 Dose: 50 mcg Metoclopramide HCl (Reglan) 10 mg IVP Q8 [facility] Last Admin: 10/25/17 08:53 Dose: 10 mg Pantoprazole Sodium (Protonix Inj) 40 mg IVP Q12H [place] Last Admin: 10/25/17 09:10 Dose: 40 mg - Labs Labs: 10/25/17 04:50 10/25/17 04:50 PT 16.2 Seconds (9.8-13.1) H 10/21/17 04:20 INR 1.5 (0.9-1.2) H 10/21/17 04:20 APTT 24.0 Seconds (25.6-37.1) L D 10/21/17 04:20
[2017-10-25] MEDS ORDERED: Calcium Acetate 667 MG Capsule PO SCH (12:00)
--- NOTE | 2017-10-25 14:24 | PN ---
DATE: SUBJECTIVE: The patient still sedated on the ventilator, FiO2 of 60%. PHYSICAL EXAMINATION: VITAL SIGNS: Blood pressure 107/44, heart rate 86, temperature 99.3 and respirations 18. HEENT: Pale conjunctivae. CHEST: Bilateral rhonchi. HEART: S1 and S2 regular. EXTREMITIES: 1+ pitting edema. LABORATORY DATA: Hemoglobin and hematocrit are 8.1 and 24.8, platelet count 23,000. Today's BUN and creatinine are 74 and 2.3, glucose 161, calcium 7.9. The rest of SMA-7 is within normal limits. ASSESSMENT: 1. Bilateral pneumonia and respiratory failure. 2. Borderline troponin elevation on presentation. 3. Acute renal failure. 4. Thrombocytopenia. 5. Anemia. 6. Uncontrolled diabetes mellitus. 7. Hypothyroidism. RECOMMENDATIONS: Continue IV meropenem at 500 mg q. 12 hours. The patient will receive 2 units of platelets today and is scheduled to undergo another hemodialysis today. Mitchell Hollis MD
--- NOTE | 2017-10-25 16:06 | CP.PCM.PN ---
Subjective - Date & Time of Evaluation Date of Evaluation: 10/25/17 Time of Evaluation: 11:20 - Subjective Subjective: F/U Respiratory Failure. intubated , minimal response to tactil stimulation Objective - Vital Signs/Intake and Output Vital Signs (last 24 hours): Temp Pulse Resp BP Pulse Ox 99.3 F 86 18 107/44 L 100 10/25/17 12:00 10/25/17 12:00 10/25/17 12:00 10/25/17 12:00 10/25/17 12:00 Intake and Output: 10/25/17 10/25/17 06:59 18:59 Intake Total 224 Output Total 40 Balance 184 - Medications Medications: Current Medications Acetaminophen (Tylenol 325mg Tab) 975 mg PO ONCE PRN PRN Reason: Fever >100.4 F Atorvastatin Calcium (Lipitor) 20 mg PO DAILY [facility] Last Admin: 10/25/17 08:55 Dose: 20 mg Calcium Acetate (Phoslo) 2,001 mg PO WM [facility] Last Admin: 10/25/17 13:46 Dose: 2,001 mg Epoetin Crispin (Procrit) 4,000 unit IV MWF [facility] Haloperidol Lactate (Haldol) 1 mg IVP Q6 PRN PRN Reason: Agitation Meropenem 500 mg/ Sodium (Chloride) 100 mls @ 100 mls/hr IVPB Q12 [facility] PRN Reason: Protocol Last Admin: 10/24/17 20:28 Dose: 100 mls/hr Insulin Human Lispro (Humalog) 0 units SC ACHS [place] PRN Reason: Protocol Last Admin: 10/25/17 11:57 Dose: Not Given Ipratropium [place] (Atrovent) 0.5 mg IH RQ6 [facility] Last Admin: 10/25/17 13:36 Dose: 0.5 mg Levalbuterol HCl (Xopenex) 0.63 mg INH RQ8 [facility] Last Admin: 10/25/17 15:56 Dose: 0.63 mg Levothyroxine Sodium (Synthroid) 50 mcg PO DAILY@0630 [facility] Last Admin: 10/25/17 07:14 Dose: 50 mcg Metoclopramide HCl (Reglan) 10 mg IVP Q8 [facility] Last Admin: 10/25/17 08:53 Dose: 10 mg Pantoprazole Sodium (Protonix Inj) 40 mg IVP Q12H [facility] Last Admin: 10/25/17 09:10 Dose: 40 mg - Labs Labs: 10/25/17 04:50 10/25/17 04:50 PT 16.2 Seconds (9.8-13.1) H 10/21/17 04:20 INR 1.5 (0.9-1.2) H 10/21/17 04:20 APTT 24.0 Seconds (25.6-37.1) L D 10/21/17 04:20 - Constitutional Appears: Chronically Ill - Head Exam Head Exam: NORMAL INSPECTION - Eye Exam Eye Exam: PERRL - ENT Exam Additional comments: Intubated - Neck Exam Neck Exam: Normal Inspection - Respiratory Exam Respiratory Exam: Decreased Breath Sounds (at bases) - Cardiovascular Exam Cardiovascular Exam: REGULAR RHYTHM - GI/Abdominal Exam GI & Abdominal Exam: Soft, Normal Bowel Sounds - Extremities Exam Extremities Exam: Pedal Edema - Neurological Exam Additional comments: Intubated, - Psychiatric Exam Additional comments: intubated - Skin Skin Exam: Warm Assessment and Plan (1) Pneumonia Status: Acute (2) Influenza A Status: Acute (3) Respiratory failure Status: Acute (4) Sepsis Status: Acute (5) NAHOMI (acute kidney injury) Status: Acute (6) Anemia Status: Acute (7) Thrombocytopenia Status: Acute - Assessment and Plan (Free Text) Plan: Platelet 23 , to have Platelet transfusion, Hgb 8.1 , f/u Hgb in am , Patient's family want Full Code and Tracheostomy when coagulation profile normal , CXR worsening Pulmonary edema , Dialysis today , continue ventilatory support , Xopenex , Atrovent , Merren and rest of treatment , prognosis poor
[2017-10-25] MEDS: Meropenem 500 MG in Sodium Chloride 0.9% 100 ML IVPB SCH ×2 (16:54→21:11)
[2017-10-25] MEDS ORDERED: Acetaminophen 650mg/20.3ml solution UD PO ONE (23:20)
[2017-10-26] MEDS: Levalbuterol 0.63 MG/3 ML Inhal Soln UD INH SCH ×3 (00:25→15:36)
[2017-10-26] MEDS: Ipratropium 0.02% Inhal Soln (0.5 mg/2.5 ml) UD IH SCH ×4 (00:26→19:38)
[2017-10-26 05:17] LABS: ABG ALLEN TEST YES; ARTERIAL BLOOD GAS HCO3 28.5 mmol/L (21-28); ARTERIAL BLOOD GAS HEMOGLOBIN 8.4 g/dL (11.7-17.4); ARTERIAL BLOOD GAS O2 CAPACITY 11.7 mL/dL (16-24); ARTERIAL BLOOD GAS O2 CONTENT 11.7 ML/dL (15-23); ARTERIAL BLOOD GAS O2 SAT 99.8 % (95-98); ARTERIAL BLOOD GAS PCO2 43 mm/Hg (35-45); ARTERIAL BLOOD GAS PH 7.44 (7.35-7.45); ARTERIAL BLOOD GAS PO2 136 mm/Hg (80-100); ARTERIAL BLOOD GAS TCO2 30.5 mmol/L (22-28)
[2017-10-26 05:41] LABS: MEAN CELL VOLUME 89.1 fl (81.0-99.0); MEAN CORPUSCULAR HEMOGLOBIN 28.9 pg (27.0-31.0); MEAN CORPUSCULAR HGB CONC 32.5 g/dL (33.0-37.0); RBC 2.41 Mil/uL (3.80-5.20); RED CELL DISTRIBUTION WIDTH 15.1 % (11.5-14.5); WHITE BLOOD COUNT 9.2 K/uL (4.8-10.8)
[2017-10-26 06:07] LABS: CALCIUM 7.8 mg/dL (8.4-10.2)
[2017-10-26] MEDS: Levothyroxine 50 MCG TAB PO SCH (08:38)
[2017-10-26] MEDS: Meropenem 500 MG in Sodium Chloride 0.9% 100 ML IVPB SCH ×2 (08:40→21:00)
[2017-10-26] MEDS: Insulin Lispro (humaLOG) 100 Units/ml Inj SC SCH ×4 (08:55→22:00)
[2017-10-26] MEDS ORDERED: Epoetin Alfa 4000 UNIT/ML Inj IV SCH (09:00)
--- NOTE | 2017-10-26 09:11 | CP.PCM.PN ---
Subjective - Date & Time of Evaluation Date of Evaluation: 10/26/17 Time of Evaluation: 09:09 - Subjective Subjective: remained on vent. poor response vital noted acceptable Objective - Vital Signs/Intake and Output Vital Signs (last 24 hours): Temp Pulse Resp BP Pulse Ox 100.0 F H 98 H 25 H 117/41 L 98 10/26/17 08:00 10/26/17 08:00 10/26/17 08:00 10/26/17 08:00 10/26/17 08:00 Intake and Output: 10/26/17 10/26/17 06:59 18:59 Intake Total 1320 40 Output Total 2100 Balance -780 40 - Medications Medications: Current Medications Acetaminophen (Tylenol 325mg Tab) 975 mg PO ONCE PRN PRN Reason: Fever >100.4 F Atorvastatin Calcium (Lipitor) 20 mg PO DAILY [facility] Last Admin: 10/26/17 08:39 Dose: 20 mg Calcium Acetate (Phoslo) 2,001 mg PO WM [facility] Last Admin: 10/26/17 08:38 Dose: 2,001 mg Epoetin Crispin (Procrit) 4,000 unit IV MWF [facility] Last Admin: 10/25/17 20:00 Dose: 4,000 unit Haloperidol Lactate (Haldol) 1 mg IVP Q6 PRN PRN Reason: Agitation Meropenem 500 mg/ Sodium (Chloride) 100 mls @ 100 mls/hr IVPB Q12 MI PRN Reason: Protocol Last Admin: 10/26/17 08:40 Dose: 100 mls/hr Insulin Human Lispro (Humalog) 0 units SC ACHS MI PRN Reason: Protocol Last Admin: 10/26/17 08:55 Dose: 2 units Ipratropium [place] (Atrovent) 0.5 mg IH RQ6 [facility] Last Admin: 10/26/17 07:59 Dose: 0.5 mg Levalbuterol HCl (Xopenex) 0.63 mg INH RQ8 [facility] Last Admin: 10/26/17 07:59 Dose: 0.63 mg Levothyroxine Sodium (Synthroid) 50 mcg PO DAILY@0630 [facility] Last Admin: 10/26/17 08:38 Dose: 50 mcg Metoclopramide HCl (Reglan) 10 mg IVP Q8 [facility] Last Admin: 10/26/17 08:54 Dose: 10 mg Pantoprazole Sodium (Protonix Inj) 40 mg IVP Q12H [place] Last Admin: 10/26/17 09:00 Dose: 40 mg - Labs Labs: 10/26/17 05:15 10/26/17 05:15 PT 16.2 Seconds (9.8-13.1) H 10/21/17 04:20 INR 1.5 (0.9-1.2) H 10/21/17 04:20 APTT 24.0 Seconds (25.6-37.1) L D 10/21/17 04:20 - Constitutional Appears: No Acute Distress - Eye Exam Eye Exam: Conjunctival injection - Neck Exam Neck Exam: absent: Lymphadenopathy - Respiratory Exam Respiratory Exam: Rhonchi. absent: Chest Wall Tenderness - Cardiovascular Exam Cardiovascular Exam: absent: JVD, Rubs - GI/Abdominal Exam GI & Abdominal Exam: Soft, Normal Bowel Sounds - Extremities Exam Extremities Exam: absent: Calf Tenderness - Back Exam Back Exam: absent: CVA tenderness (L), CVA tenderness (R) - Neurological Exam Neurological Exam: Altered - Psychiatric Exam Psychiatric exam: Flat Affect - Skin Skin Exam: absent: Cyanosis Assessment and Plan (1) Influenza A Status: Acute (2) Pneumonia Status: Acute (3) Respiratory failure Status: Acute (4) Sepsis Status: Acute (5) NAHOMI (acute kidney injury) Assessment & Plan: Acute Kidney Injury (N17.9) with fluid overload now on HD, plan for tomrrow pneumonia, acute influenza, respi failure, thrombocytopenia, Anemia Hypokalemia still poor urine output HD tomrrow ATB vent. management Status: Acute
--- NOTE | 2017-10-26 09:28 | CP.PCM.PN ---
Subjective - Date & Time of Evaluation Date of Evaluation: 10/26/17 Time of Evaluation: 09:25 - Subjective Subjective: Pt is intubated no acute distrrss. She had her first dialysis on 10/24, and her renal function is better. CBC today shows anemia with hgb of 7.1, and platelets of 92 k She is to be transfused 2 units of packed cells today. Objective - Vital Signs/Intake and Output Vital Signs (last 24 hours): Temp Pulse Resp BP Pulse Ox 100.0 F H 106 H 24 112/38 L 97 10/26/17 08:00 10/26/17 09:00 10/26/17 09:00 10/26/17 09:00 10/26/17 09:00 Intake and Output: 10/26/17 10/26/17 06:59 18:59 Intake Total 1320 40 Output Total 2100 Balance -780 40 - Medications Medications: Current Medications Acetaminophen (Tylenol 325mg Tab) 975 mg PO ONCE PRN PRN Reason: Fever >100.4 F Atorvastatin Calcium (Lipitor) 20 mg PO DAILY [facility] Last Admin: 10/26/17 08:39 Dose: 20 mg Calcium Acetate (Phoslo) 2,001 mg PO WM [facility] Last Admin: 10/26/17 08:38 Dose: 2,001 mg Epoetin [place] (Procrit) 4,000 unit IV MWF [facility] Last Admin: 10/25/17 20:00 Dose: 4,000 unit Haloperidol Lactate (Haldol) 1 mg IVP Q6 PRN PRN Reason: Agitation Meropenem 500 mg/ Sodium (Chloride) 100 mls @ 100 mls/hr IVPB Q12 MI PRN Reason: Protocol Last Admin: 10/26/17 08:40 Dose: 100 mls/hr Insulin Human Lispro (Humalog) 0 units SC ACHS MI PRN Reason: Protocol Last Admin: 10/26/17 08:55 Dose: 2 units Ipratropium [place] (Atrovent) 0.5 mg IH RQ6 [facility] Last Admin: 10/26/17 07:59 Dose: 0.5 mg Levalbuterol HCl (Xopenex) 0.63 mg INH RQ8 [facility] Last Admin: 10/26/17 07:59 Dose: 0.63 mg Levothyroxine Sodium (Synthroid) 50 mcg PO DAILY@0630 [facility] Last Admin: 10/26/17 08:38 Dose: 50 mcg Metoclopramide HCl (Reglan) 10 mg IVP Q8 [facility] Last Admin: 10/26/17 08:54 Dose: 10 mg Pantoprazole Sodium (Protonix Inj) 40 mg IVP Q12H [facility] Last Admin: 10/26/17 09:00 Dose: 40 mg - Labs Labs: 10/26/17 05:15 10/26/17 05:15 PT 16.2 Seconds (9.8-13.1) H 10/21/17 04:20 INR 1.5 (0.9-1.2) H 10/21/17 04:20 APTT 24.0 Seconds (25.6-37.1) L D 10/21/17 04:20
--- NOTE | 2017-10-26 09:51 | RAD ---
HISTORY: vented COMPARISON: Chest radiograph dated 10/25/2017. FINDINGS: LUNGS: Stable chronic prominence of the bilateral interstitial markings with superimposed pulmonary vascular congestion/edema. PLEURA: Trace/small bilateral pleural effusions suspected. No pneumothorax apparent. CARDIOVASCULAR: Atherosclerotic aortic calcifications. Cardiomediastinal silhouette unchanged. OSSEOUS STRUCTURES: Unchanged. VISUALIZED UPPER ABDOMEN: Normal. OTHER FINDINGS: Endotracheal and enteric tubes, unchanged. IMPRESSION: Stable lines and tubes. Stable chronic prominence of the bilateral interstitial markings with superimposed pulmonary vascular congestion and trace/ small suspected bilateral pleural effusions. No significant interval change.
--- NOTE | 2017-10-26 10:46 | CP.CCUPN ---
CCU Subjective - Physician Review Subjective (Free Text): 10/11/17 18:13 The patient was Seen and examined by me at the bedside during ICU round, Medical records reviewed and Management issues were discussed and formulated with the house staff. Events reviewed 87 Years old Female with PMHx of HTN, Hypercholesterolemia and Diabetes Who presented to the ED on 10/07 complaining of worsening cough, congestion and fevers. Found to have UTI and Influenza A with superimposed multilobar pneumonia. Placed on droplet isolation Started on IV antibiotics and Tamiflu and then Admitted to telemetry On 10/11 ICU called for worsening Respiratory status On 10/12, Patient looks restless, and lethargic, discussed patient's respiratory status with patient's next of kin (daughter) and she was orally intubated, Meds Given Versed, Succinylcholine. CXR showed worsening pneumonia, She remains orally intubated, off sedations (On Haldol 1 mg IVP Q6 PRN) ICU course noted for worsening renal function and now she is on HD 10/26/17 10:41 Afebrile, NSR on the monitor Last 24H I&O 1880/2150 (including HD) This morning labs revealed Leucocytosis trending down, H/H drop 8.1/24-->7/21.5 , improved Thrombocytopenia after 2U Plat transfusion yesterday Pt had dialysis yesterday, D/W Nephro repeat dialysis tomorrow Patient is now DNR and family thinking of terminal extubation CCU Objective - Vital Signs / Intake & Output Vital Signs (Last 4 hours): Vital Signs Temp Pulse Resp BP Pulse Ox 10/26/17 10:00 104 H 27 H 99/35 L 100 10/26/17 09:00 106 H 24 112/38 L 97 10/26/17 08:00 100.0 F H 98 H 25 H 117/41 L 98 Intake and Output (Last 8hrs): Intake & Output 10/25/17 10/26/17 10/26/17 22:59 06:59 14:59 Intake Total 550 1130 320 Output Total 2150 Balance -1600 1130 320 Intake: IV 100 Intake, Piggyback 100 Tube Feeding 520 320 120 Blood Product 510 Free Water Flush 30 200 100 Output: Urine 50 Urethral (Jamil) 50 Other 2100 Other: # Bowel Movements 0 1 - Physical Exam Head: Positive for: Atraumatic, Normocephalic. Negative for: Tenderness, Contusion Pupils: Positive for: PERRL. Negative for: Sluggish, Non-Reactive Extroacular Muscles: Negative for: Gaze Palsy, Entrapment Conjunctiva: Positive for: Normal. Negative for: Injected, Icteric Mouth: Positive for: Moist Mucous Membranes Pharnyx: Positive for: Normal Nose (External): Positive for: Atraumatic Nose (Internal): Positive for: Normal Inspection Neck: Positive for: Trachea Midline. Negative for: Meningeal Signs, MIDLINE TENDERNESS, Paraspinal Tenderness, JVD, Lymphadenopathy, Bruit, Other Respiratory/Chest: Positive for: Clear to Auscultation, Good Air Exchange. Negative for: Respiratory Distress, Accessory Muscle Use, Wheezes, Rales, Rhonchi, Tender to Palpation Cardiovascular: Positive for: Regular Rate and Rhythm, Normal S1, S2, Peripheal Pulses Present. Negative for: Murmurs, Irregular Rhythm, Tachycardic Abdomen: Positive for: Normal Bowel Sounds. Negative for: Tenderness, Distention, Peritoneal Signs Upper Extremity: Positive for: Normal Inspection, Edema (no pitting edema in upper/lower extremities), NORMAL PULSES, Capillary Refill < 2s. Negative for: Cyanosis Lower Extremity: Positive for: Edema (in lower extremities), NORMAL PULSES, Capillary Refill < 2 s Neurological: Positive for: Other (sedated on mechanical ventilation) Skin: Positive for: Warm, Dry, Pale Psychiatric: Positive for: Other (Intubated and sedated). Negative for: Alert, Oriented x 3 - Medications Active Medications: Active Medications Generic Name Dose Route Start Last Admin Trade Name Freq PRN Reason Stop Dose Admin Acetaminophen 975 mg 10/11/17 20:15 Tylenol 325mg Tab PO ONCE PRN Fever >100.4 F Atorvastatin Calcium 20 mg 10/12/17 09:00 10/26/17 08:39 Lipitor PO 20 mg DAILY [facility] Administration Calcium Acetate 2,001 mg 10/25/17 18:30 10/26/17 08:38 Phoslo PO 2,001 mg WM [facility] Administration Epoetin Crispin 4,000 unit 10/25/17 09:00 10/25/17 20:00 Procrit IV 4,000 unit MWF [facility] Administration Haloperidol Lactate 1 mg 10/11/17 20:15 Haldol IVP Q6 PRN Agitation Meropenem 500 mg/ Sodium 100 mls @ 100 mls/hr 10/15/17 10:30 10/26/17 08:40 Chloride IVPB 100 mls/hr Q12 MI Administration Protocol Insulin Human Lispro 0 units 10/11/17 22:00 10/26/17 08:55 Humalog SC 2 units ACHS MI Administration Protocol Ipratropium [place] 0.5 mg 10/18/17 14:00 10/26/17 07:59 Atrovent IH 0.5 mg RQ6 [facility] Administration Levalbuterol HCl 0.63 mg 10/12/17 00:00 10/26/17 07:59 Xopenex INH 0.63 mg RQ8 [facility] Administration Levothyroxine Sodium 50 mcg 10/12/17 06:30 10/26/17 08:38 Synthroid PO 50 mcg DAILY@0630 [facility] Administration Metoclopramide HCl 10 mg 10/19/17 01:00 10/26/17 08:54 Reglan IVP 10 mg Q8 MI Administration Pantoprazole Sodium 40 mg 10/19/17 22:00 10/26/17 09:00 Protonix Inj IVP 40 mg Q12H MI Administration - Patient Studies Lab Studies: Lab Studies 10/26/17 10/26/17 10/26/17 Range/Units 08:51 05:58 05:15 WBC (4.8-10.8) K/uL RBC (3.80-5.20) Mil/uL Hgb (12.0-16.0) g/dL Hct (34.0-47.0) % MCV (81.0-99.0) fl MCH (27.0-31.0) pg MCHC (33.0-37.0) g/dL RDW (11.5-14.5) % Plt Count (130-400) K/uL pCO2 (35-45) mm/Hg pO2 (80-100) mm/Hg HCO3 (21-28) mmol/L ABG pH (7.35-7.45) ABG Total CO2 (22-28) mmol/L ABG O2 Saturation (95-98) % ABG O2 Content (15-23) ML/dL ABG Base Excess (-2.0-3.0) mmol/L ABG Hemoglobin (11.7-17.4) g/dL ABG Carboxyhemoglobin (0.5-1.5) % POC ABG HHb (Measured) (0.0-5.0) % ABG Methemoglobin (0.0-3.0) % ABG O2 Capacity (16-24) mL/dL Michael Test A-a O2 Difference mm/Hg Hgb O2 Saturation (95.0-98.0) % Vent Mode Mechanical Rate FiO2 % Tidal Volume PEEP Sodium 136 (132-148) mmol/l Potassium 3.4 L (3.6-5.0) MMOL/L Chloride 98 (98-107) mmol/L Carbon Dioxide 27 (22-30) mmol/L Anion Gap 14 (10-20) BUN 55 H (7-17) mg/dl Creatinine 1.8 H (0.7-1.2) mg/dl Est GFR ( Amer) 32 Est GFR (Non-Af Amer) 26 POC Glucose (mg/dL) 236 H (65-110) mg/dL Random Glucose 225 H (65-105) mg/dL Calcium 7.8 L (8.4-10.2) mg/dL Heparin-induced Plt Ab (Negative) Blood Type A POSITIVE Antibody Screen Negative Crossmatch See Detail BBK History Checked Patient has bt 10/26/17 10/26/17 10/25/17 Range/Units 05:15 04:58 23:56 WBC 9.2 (4.8-10.8) K/uL RBC 2.41 L (3.80-5.20) Mil/uL Hgb 7.0 L (12.0-16.0) g/dL Hct 21.5 L (34.0-47.0) % MCV 89.1 (81.0-99.0) fl MCH 28.9 (27.0-31.0) pg MCHC 32.5 L (33.0-37.0) g/dL RDW 15.1 H (11.5-14.5) % Plt Count 92 L D (130-400) K/uL pCO2 43 (35-45) mm/Hg pO2 136 H (80-100) mm/Hg HCO3 28.5 H (21-28) mmol/L ABG pH 7.44 (7.35-7.45) ABG Total CO2 30.5 H (22-28) mmol/L ABG O2 Saturation 99.8 H (95-98) % ABG O2 Content 11.7 L (15-23) ML/dL ABG Base Excess 4.6 H (-2.0-3.0) mmol/L ABG Hemoglobin 8.4 L (11.7-17.4) g/dL ABG Carboxyhemoglobin 1.6 H (0.5-1.5) % POC ABG HHb (Measured) 0.2 (0.0-5.0) % ABG Methemoglobin 1.5 (0.0-3.0) % ABG O2 Capacity 11.7 L (16-24) mL/dL Michael Test Yes A-a O2 Difference 238.0 mm/Hg Hgb O2 Saturation 96.7 (95.0-98.0) % Vent Mode A/c Mechanical Rate 14 FiO2 60.0 % Tidal Volume 400 PEEP 10 Sodium (132-148) mmol/l Potassium (3.6-5.0) MMOL/L Chloride (98-107) mmol/L Carbon Dioxide (22-30) mmol/L Anion Gap (10-20) BUN (7-17) mg/dl Creatinine (0.7-1.2) mg/dl Est GFR ( Amer) Est GFR (Non-Af Amer) POC Glucose (mg/dL) 196 H (65-110) mg/dL Random Glucose (65-105) mg/dL Calcium (8.4-10.2) mg/dL Heparin-induced Plt Ab (Negative) Blood Type Antibody Screen Crossmatch BBK History Checked 10/25/17 10/25/17 10/25/17 Range/Units 21:07 16:28 11:24 WBC (4.8-10.8) K/uL RBC (3.80-5.20) Mil/uL Hgb (12.0-16.0) g/dL Hct (34.0-47.0) % MCV (81.0-99.0) fl MCH (27.0-31.0) pg MCHC (33.0-37.0) g/dL RDW (11.5-14.5) % Plt Count (130-400) K/uL pCO2 (35-45) mm/Hg pO2 (80-100) mm/Hg HCO3 (21-28) mmol/L ABG pH (7.35-7.45) ABG Total CO2 (22-28) mmol/L ABG O2 Saturation (95-98) % ABG O2 Content (15-23) ML/dL ABG Base Excess (-2.0-3.0) mmol/L ABG Hemoglobin (11.7-17.4) g/dL ABG Carboxyhemoglobin (0.5-1.5) % POC ABG HHb (Measured) (0.0-5.0) % ABG Methemoglobin (0.0-3.0) % ABG O2 Capacity (16-24) mL/dL Michael Test A-a O2 Difference mm/Hg Hgb O2 Saturation (95.0-98.0) % Vent Mode Mechanical Rate FiO2 % Tidal Volume PEEP Sodium (132-148) mmol/l Potassium (3.6-5.0) MMOL/L Chloride (98-107) mmol/L Carbon Dioxide (22-30) mmol/L Anion Gap (10-20) BUN (7-17) mg/dl Creatinine (0.7-1.2) mg/dl Est GFR ( Amer) Est GFR (Non-Af Amer) POC Glucose (mg/dL) 158 H 204 H 145 H (65-110) mg/dL Random Glucose (65-105) mg/dL Calcium (8.4-10.2) mg/dL Heparin-induced Plt Ab (Negative) Blood Type Antibody Screen Crossmatch BBK History Checked 10/21/17 Range/Units 14:38 WBC (4.8-10.8) K/uL RBC (3.80-5.20) Mil/uL Hgb (12.0-16.0) g/dL Hct (34.0-47.0) % MCV (81.0-99.0) fl MCH (27.0-31.0) pg MCHC (33.0-37.0) g/dL RDW (11.5-14.5) % Plt Count (130-400) K/uL pCO2 (35-45) mm/Hg pO2 (80-100) mm/Hg HCO3 (21-28) mmol/L ABG pH (7.35-7.45) ABG Total CO2 (22-28) mmol/L ABG O2 Saturation (95-98) % ABG O2 Content (15-23) ML/dL ABG Base Excess (-2.0-3.0) mmol/L ABG Hemoglobin (11.7-17.4) g/dL ABG Carboxyhemoglobin (0.5-1.5) % POC ABG HHb (Measured) (0.0-5.0) % ABG Methemoglobin (0.0-3.0) % ABG O2 Capacity (16-24) mL/dL Michael Test A-a O2 Difference mm/Hg Hgb O2 Saturation (95.0-98.0) % Vent Mode Mechanical Rate FiO2 % Tidal Volume PEEP Sodium (132-148) mmol/l Potassium (3.6-5.0) MMOL/L Chloride (98-107) mmol/L Carbon Dioxide (22-30) mmol/L Anion Gap (10-20) BUN (7-17) mg/dl Creatinine (0.7-1.2) mg/dl Est GFR ( Amer) Est GFR (Non-Af Amer) POC Glucose (mg/dL) (65-110) mg/dL Random Glucose (65-105) mg/dL Calcium (8.4-10.2) mg/dL Heparin-induced Plt Ab Positive H (Negative) Blood Type Antibody Screen Crossmatch BBK History Checked Laboratory Results - last 24 hr 10/21/17 10/25/17 10/25/17 14:38 11:24 16:28 WBC RBC Hgb Hct MCV MCH MCHC RDW Plt Count pCO2 pO2 HCO3 ABG pH ABG Total CO2 ABG O2 Saturation ABG O2 Content ABG Base Excess ABG Hemoglobin ABG Carboxyhemoglobin POC ABG HHb (Measured) ABG Methemoglobin ABG O2 Capacity Michael Test A-a O2 Difference Hgb O2 Saturation Vent Mode Mechanical Rate FiO2 Tidal Volume PEEP Sodium Potassium Chloride Carbon Dioxide Anion Gap BUN Creatinine Est GFR ( Amer) Est GFR (Non-Af Amer) POC Glucose (mg/dL) 145 H 204 H Random Glucose Calcium Heparin-induced Plt Ab Positive H Blood Type Antibody Screen Crossmatch BBK History Checked 10/25/17 10/25/17 10/26/17 21:07 23:56 04:58 WBC RBC Hgb Hct MCV MCH MCHC RDW Plt Count pCO2 43 pO2 136 H HCO3 28.5 H ABG pH 7.44 ABG Total CO2 30.5 H ABG O2 Saturation 99.8 H ABG O2 Content 11.7 L ABG Base Excess 4.6 H ABG Hemoglobin 8.4 L ABG Carboxyhemoglobin 1.6 H POC ABG HHb (Measured) 0.2 ABG Methemoglobin 1.5 ABG O2 Capacity 11.7 L Michael Test Yes A-a O2 Difference 238.0 Hgb O2 Saturation 96.7 Vent Mode A/c Mechanical Rate 14 FiO2 60.0 Tidal Volume 400 PEEP 10 Sodium Potassium Chloride Carbon Dioxide Anion Gap BUN Creatinine Est GFR ( Amer) Est GFR (Non-Af Amer) POC Glucose (mg/dL) 158 H 196 H Random Glucose Calcium Heparin-induced Plt Ab Blood Type Antibody Screen Crossmatch BBK History Checked 10/26/17 10/26/17 10/26/17 05:15 05:15 05:58 WBC 9.2 RBC 2.41 L Hgb 7.0 L Hct 21.5 L MCV 89.1 MCH 28.9 MCHC 32.5 L RDW 15.1 H Plt Count 92 L D pCO2 pO2 HCO3 ABG pH ABG Total CO2 ABG O2 Saturation ABG O2 Content ABG Base Excess ABG Hemoglobin ABG Carboxyhemoglobin POC ABG HHb (Measured) ABG Methemoglobin ABG O2 Capacity Michael Test A-a O2 Difference Hgb O2 Saturation Vent Mode Mechanical Rate FiO2 Tidal Volume PEEP Sodium 136 Potassium 3.4 L Chloride 98 Carbon Dioxide 27 Anion Gap 14 BUN 55 H Creatinine 1.8 H Est GFR ( Amer) 32 Est GFR (Non-Af Amer) 26 POC Glucose (mg/dL) 236 H Random Glucose 225 H Calcium 7.8 L Heparin-induced Plt Ab Blood Type Antibody Screen Crossmatch BBK History Checked 10/26/17 08:51 WBC RBC Hgb Hct MCV MCH MCHC RDW Plt Count pCO2 pO2 HCO3 ABG pH ABG Total CO2 ABG O2 Saturation ABG O2 Content ABG Base Excess ABG Hemoglobin ABG Carboxyhemoglobin POC ABG HHb (Measured) ABG Methemoglobin ABG O2 Capacity Michael Test A-a O2 Difference Hgb O2 Saturation Vent Mode Mechanical Rate FiO2 Tidal Volume PEEP Sodium Potassium Chloride Carbon Dioxide Anion Gap BUN Creatinine Est GFR ( Amer) Est GFR (Non-Af Amer) POC Glucose (mg/dL) Random Glucose Calcium Heparin-induced Plt Ab Blood Type A POSITIVE Antibody Screen Negative Crossmatch See Detail BBK History Checked Patient has bt Fingerstick Blood Sugar Results: 236 Critical Care Progress Note - Nutrition Nutrition: Nutrition Category Date Time Status NPO Diet [DIET] Diets 10/12/17 Breakfast Active Assessment/Plan (1) Acute respiratory failure with hypoxia Current Visit: Yes Status: Acute Priority: High Comment: PRVC AC 14 TV 400 PEEP 10, FiO2 decreased today morning from 60 to 50 % Next of kin and other family members declined Tracheostomy at this time Continue IV antibiotics as per ID with IV meropenum (2) Influenza due to unidentified influenza virus with pneumonia Current Visit: Yes Status: Acute Comment: Continue IV meropenum Completed Tamiflu (3) NAHOMI (acute kidney injury) Current Visit: Yes Status: Acute Priority: High Comment: On daily HD, as per renal (4) Influenza A Current Visit: Yes Status: Acute Priority: High (5) Thrombocytopenia Current Visit: Yes Status: Acute Comment: Plat count up to 92, No evidanceof bleeding at this time She was transfused two units yesterday (6) Sepsis Current Visit: Yes Status: Acute Priority: High
--- NOTE | 2017-10-26 15:06 | CP.PCM.PN ---
Subjective - Date & Time of Evaluation Date of Evaluation: 10/26/17 Time of Evaluation: 12:20 - Subjective Subjective: F/U Respiratory Failure Pt intubated, no response. Objective - Vital Signs/Intake and Output Vital Signs (last 24 hours): Temp Pulse Resp BP Pulse Ox 100.3 F H 108 H 14 123/40 L 100 10/26/17 12:00 10/26/17 14:00 10/26/17 14:00 10/26/17 14:00 10/26/17 14:00 Intake and Output: 10/26/17 10/26/17 06:59 18:59 Intake Total 1320 480 Output Total 2100 Balance -780 480 - Medications Medications: Current Medications Acetaminophen (Tylenol 325mg Tab) 975 mg PO ONCE PRN PRN Reason: Fever >100.4 F Atorvastatin Calcium (Lipitor) 20 mg PO DAILY [facility] Last Admin: 10/26/17 08:39 Dose: 20 mg Calcium Acetate (Phoslo) 2,001 mg PO WM [facility] Last Admin: 10/26/17 11:30 Dose: 2,001 mg Epoetin [place] (Procrit) 4,000 unit IV MWF [facility] Last Admin: 10/25/17 20:00 Dose: 4,000 unit Haloperidol Lactate (Haldol) 1 mg IVP Q6 PRN PRN Reason: Agitation Meropenem 500 mg/ Sodium (Chloride) 100 mls @ 100 mls/hr IVPB Q12 MI PRN Reason: Protocol Last Admin: 10/26/17 08:40 Dose: 100 mls/hr Insulin Human Lispro (Humalog) 0 units SC ACHS MI PRN Reason: Protocol Last Admin: 10/26/17 11:29 Dose: 2 units Ipratropium [place] (Atrovent) 0.5 mg IH RQ6 [facility] Last Admin: 10/26/17 13:59 Dose: 0.5 mg Levalbuterol HCl (Xopenex) 0.63 mg INH RQ8 [facility] Last Admin: 10/26/17 07:59 Dose: 0.63 mg Levothyroxine Sodium (Synthroid) 50 mcg PO DAILY@0630 [facility] Last Admin: 10/26/17 08:38 Dose: 50 mcg Metoclopramide HCl (Reglan) 10 mg IVP Q8 [facility] Last Admin: 10/26/17 08:54 Dose: 10 mg Pantoprazole Sodium (Protonix Inj) 40 mg IVP Q12H MI Last Admin: 10/26/17 09:00 Dose: 40 mg - Labs Labs: 10/26/17 05:15 10/26/17 05:15 PT 16.2 Seconds (9.8-13.1) H 10/21/17 04:20 INR 1.5 (0.9-1.2) H 10/21/17 04:20 APTT 24.0 Seconds (25.6-37.1) L D 10/21/17 04:20 - Constitutional Appears: Chronically Ill - Head Exam Head Exam: NORMAL INSPECTION - ENT Exam Additional comments: Intubated - Neck Exam Neck Exam: Normal Inspection - Respiratory Exam Respiratory Exam: Decreased Breath Sounds (at bases) - Cardiovascular Exam Cardiovascular Exam: REGULAR RHYTHM - GI/Abdominal Exam GI & Abdominal Exam: Soft, Normal Bowel Sounds - Extremities Exam Extremities Exam: Pedal Edema - Neurological Exam Additional comments: Intubated, sedated - Psychiatric Exam Psychiatric exam: Flat Affect - Skin Skin Exam: Warm (Cyanosis.) Assessment and Plan (1) Pneumonia Status: Acute (2) Influenza A Status: Acute (3) Respiratory failure Status: Acute (4) Sepsis Status: Acute (5) NAHOMI (acute kidney injury) Status: Acute (6) Anemia Status: Acute (7) Thrombocytopenia Status: Acute - Assessment and Plan (Free Text) Plan: Hgb 7.0, Platelet decreased, ordered 2 U PRBC earlier today but was there after order was DC, Pt family requested final extubation today.
[2017-10-26] MEDS ORDERED: Acetaminophen 160 mg/5 ml UD PO ONE (16:15)
[2017-10-26] MEDS ORDERED: Sodium Chloride 0.9% 500 ML IV ONE (16:29)
[2017-10-26] MEDS ORDERED: Acetaminophen 325 MG/10.15 ML PO PRN (16:45)
[2017-10-26] MEDS ORDERED: Morphine 4 MG/ML VIAL IVP STA (16:55)
[2017-10-26] MEDS ORDERED: Morphine 100 MG in Sodium Chloride 0.9% 100 ML IVPB SCH ×2 (17:00→20:30)
[2017-10-26] MEDS ORDERED: Levalbuterol 0.63 MG/3 ML Inhal Soln UD INH PRN (19:55)
[2017-10-27 10:45] VITALS: BP 50/22; PULSE 49; RESP 11; O2SAT 99
--- NOTE | 2017-10-27 11:47 | CP.PCM.PN ---
Subjective - Date & Time of Evaluation Date of Evaluation: 10/24/17 Time of Evaluation: 18:00 Objective - Vital Signs/Intake and Output Vital Signs (last 24 hours): Temp Pulse Resp BP Pulse Ox 97.4 F L 49 L 11 L 50/22 L 99 10/27/17 08:00 10/27/17 10:00 10/27/17 10:00 10/27/17 10:00 10/27/17 10:00 Intake and Output: 10/27/17 10/27/17 06:59 18:59 Output Total 50 Balance -50 - Medications Medications: Current Medications Acetaminophen (Tylenol 650 Mg Supp) 650 mg [place] Q6 PRN PRN Reason: Fever >100.4 F Calcium Acetate (Phoslo) 2,001 mg PO WM [facility] Last Admin: 10/26/17 17:58 Dose: 2,001 mg Epoetin Crispin (Procrit) 4,000 unit IV MWF [facility] Last Admin: 10/25/17 20:00 Dose: 4,000 unit Meropenem 500 mg/ Sodium (Chloride) 100 mls @ 100 mls/hr IVPB Q12 [place] PRN Reason: Protocol Last Admin: 10/26/17 21:00 Dose: 100 mls/hr Morphine Sulfate 100 mg/ (Sodium Chloride) 104 mls @ 4.16 mls/hr IVPB .Q24H MI ; 4 MG/HR PRN Reason: Protocol Last Admin: 10/26/17 20:30 Dose: 4.16 mls/hr Insulin Human Lispro (Humalog) 0 units SC ACHS MI PRN Reason: Protocol Last Admin: 10/26/17 22:00 Dose: Not Given Levalbuterol HCl (Xopenex) 0.63 mg INH RQ8 PRN PRN Reason: Shortness of Breath Levothyroxine Sodium (Synthroid) 50 mcg PO DAILY@0630 [facility] Last Admin: 10/26/17 08:38 Dose: 50 mcg Metoclopramide HCl (Reglan) 10 mg IVP Q8 [facility] Last Admin: 10/27/17 02:36 Dose: 10 mg Pantoprazole Sodium (Protonix Inj) 40 mg IVP Q12H [facility] Last Admin: 10/26/17 22:00 Dose: 40 mg - Labs Labs: 10/26/17 05:15 10/26/17 05:15 PT 16.2 Seconds (9.8-13.1) H 10/21/17 04:20 INR 1.5 (0.9-1.2) H 10/21/17 04:20 APTT 24.0 Seconds (25.6-37.1) L D 10/21/17 04:20
[2017-10-27 12:15] VITALS: TEMP 98.2
--- NOTE | 2017-10-27 13:19 | CP.PCM.PN ---
Subjective - Date & Time of Evaluation Date of Evaluation: 10/27/17 Time of Evaluation: 13:18 - Subjective Subjective: Terminal extubation . family member around Objective - Vital Signs/Intake and Output Vital Signs (last 24 hours): Temp Pulse Resp BP Pulse Ox 98.2 F 49 L 11 L 50/22 L 99 10/27/17 12:00 10/27/17 10:00 10/27/17 10:00 10/27/17 10:00 10/27/17 10:00 Intake and Output: 10/27/17 10/27/17 06:59 18:59 Output Total 50 Balance -50 - Medications Medications: Current Medications Acetaminophen (Tylenol 650 Mg Supp) 650 mg [place] Q6 PRN PRN Reason: Fever >100.4 F Calcium Acetate (Phoslo) 2,001 mg PO WM [facility] Last Admin: 10/26/17 17:58 Dose: 2,001 mg Epoetin Crispin (Procrit) 4,000 unit IV MWF [facility] Last Admin: 10/25/17 20:00 Dose: 4,000 unit Meropenem 500 mg/ Sodium (Chloride) 100 mls @ 100 mls/hr IVPB Q12 [place] PRN Reason: Protocol Last Admin: 10/26/17 21:00 Dose: 100 mls/hr Morphine Sulfate 100 mg/ (Sodium Chloride) 104 mls @ 4.16 mls/hr IVPB .Q24H MI ; 4 MG/HR PRN Reason: Protocol Last Admin: 10/26/17 20:30 Dose: 4.16 mls/hr Insulin Human Lispro (Humalog) 0 units SC ACHS MI PRN Reason: Protocol Last Admin: 10/26/17 22:00 Dose: Not Given Levalbuterol HCl (Xopenex) 0.63 mg INH RQ8 PRN PRN Reason: Shortness of Breath Levothyroxine Sodium (Synthroid) 50 mcg PO DAILY@0630 [facility] Last Admin: 10/26/17 08:38 Dose: 50 mcg Metoclopramide HCl (Reglan) 10 mg IVP Q8 [facility] Last Admin: 10/27/17 02:36 Dose: 10 mg Pantoprazole Sodium (Protonix Inj) 40 mg IVP Q12H [facility] Last Admin: 10/26/17 22:00 Dose: 40 mg - Labs Labs: 10/26/17 05:15 10/26/17 05:15 PT 16.2 Seconds (9.8-13.1) H 10/21/17 04:20 INR 1.5 (0.9-1.2) H 10/21/17 04:20 APTT 24.0 Seconds (25.6-37.1) L D 10/21/17 04:20 Assessment and Plan (1) Influenza A Status: Acute (2) Pneumonia Status: Acute (3) Respiratory failure Status: Acute (4) Sepsis Status: Acute (5) NAHOMI (acute kidney injury) Status: Acute
--- NOTE | 2017-10-27 13:37 | CP.PCM.PRO ---
Pronouncement of Note - Clinical Findings Physical Exam: No Response Verbal/Painful Stimuli, Absent Peripheral Pulses{ Carotid & Femoral}, Absent Heart & Breath Sounds, No Pupillary Light Reflex, No Corneal Reflex, Pupils Fixed & Dilated, Absence of Vital Signs - Pronouncement Time Time of Pronouncement of : 12:40 - Notifications Pronouncement Notifications: Family Notified, Atending Notified [employer]ologist Notified: No - Autopsy Autopsy Requested: No - [place] [id number]
--- NOTE | 2017-10-28 01:18 | CP.PCM.PN ---
Subjective - Date & Time of Evaluation Date of Evaluation: 10/25/17 Objective - Vital Signs/Intake and Output Vital Signs (last 24 hours): Temp Pulse Resp BP Pulse Ox 98.2 F 49 L 11 L 50/22 L 99 10/27/17 12:00 10/27/17 10:00 10/27/17 10:00 10/27/17 10:00 10/27/17 10:00 - Labs Labs: 10/26/17 05:15 10/26/17 05:15 PT 16.2 Seconds (9.8-13.1) H 10/21/17 04:20 INR 1.5 (0.9-1.2) H 10/21/17 04:20 APTT 24.0 Seconds (25.6-37.1) L D 10/21/17 04:20
--- NOTE | 2017-10-28 01:19 | CP.PCM.PN ---
Subjective - Date & Time of Evaluation Date of Evaluation: 10/26/17 Objective - Vital Signs/Intake and Output Vital Signs (last 24 hours): Temp Pulse Resp BP Pulse Ox 98.2 F 49 L 11 L 50/22 L 99 10/27/17 12:00 10/27/17 10:00 10/27/17 10:00 10/27/17 10:00 10/27/17 10:00 - Labs Labs: 10/26/17 05:15 10/26/17 05:15 PT 16.2 Seconds (9.8-13.1) H 10/21/17 04:20 INR 1.5 (0.9-1.2) H 10/21/17 04:20 APTT 24.0 Seconds (25.6-37.1) L D 10/21/17 04:20
--- NOTE | 2017-10-28 01:19 | CP.PCM.DIS ---
Provider - Provider Date of Admission: 10/07/17 02:12 Attending physician: Gunjan Ramírez MD Time Spent in preparation of Discharge (in minutes): 15 Hospital Course - Lab Results Lab Results: Micro Results 10/15/17 18:00 Other: Please Indicate Mycobacterial Culture - Preliminary 10/15/17 10:20 Blood Blood Culture - Final NO GROWTH AFTER 5 DAYS 10/15/17 10:20 Blood Gram Stain - Final TEST NOT PERFORMED 10/15/17 14:00 Urine,Catheterized Urine Culture - Final Yeast Species 10/15/17 18:00 Sputum Gram Stain - Final 10/15/17 18:00 Sputum Sputum Culture - Final NORMAL ORAL LINA 10/13/17 17:00 Sputum Gram Stain - Final 10/13/17 17:00 Sputum Sputum Culture - Final NORMAL ORAL LINA 10/11/17 10:58 Urine,Catheterized Urine Culture - Final No Growth (<1,000 CFU/ML) 10/09/17 08:50 Sputum Gram Stain - Final 10/09/17 08:50 Sputum Sputum Culture - Final NORMAL ORAL LINA 10/07/17 05:20 Blood Blood Culture - Final NO GROWTH AFTER 5 DAYS 10/07/17 05:20 Blood Gram Stain - Final TEST NOT PERFORMED 10/07/17 01:05 Blood Blood Culture - Final NO GROWTH AFTER 5 DAYS 10/07/17 01:05 Blood Gram Stain - Final TEST NOT PERFORMED 10/10/17 16:00 Naris MRSA Culture (Admit) - Final MRSA NOT DETECTED 10/07/17 03:55 Urine,Catheterized Urine Culture - Final Klebsiella Pneumoniae Ssp Pneu 10/07/17 11:11 Naris MRSA Culture (Admit) - Final MRSA NOT DETECTED Most Recent Lab Values WBC 9.2 K/uL (4.8-10.8) 10/26/17 05:15 RBC 2.41 Mil/uL (3.80-5.20) L 10/26/17 05:15 Hgb 7.0 g/dL (12.0-16.0) L 10/26/17 05:15 Hct 21.5 % (34.0-47.0) L 10/26/17 05:15 MCV 89.1 fl (81.0-99.0) 10/26/17 05:15 MCH 28.9 pg (27.0-31.0) 10/26/17 05:15 MCHC 32.5 g/dL (33.0-37.0) L 10/26/17 05:15 RDW 15.1 % (11.5-14.5) H 10/26/17 05:15 Plt Count 92 K/uL (130-400) L D 10/26/17 05:15 MPV 7.2 fl (7.2-11.7) 10/25/17 04:50 Neut % (Auto) 79.6 % (50.0-75.0) H 10/25/17 04:50 Lymph % (Auto) 10.1 % (20.0-40.0) L 10/25/17 04:50 [place] % (Auto) 5.2 % (0.0-10.0) 10/25/17 04:50 Eos % (Auto) 4.9 % (0.0-4.0) H 10/25/17 04:50 Baso % (Auto) 0.2 % (0.0-2.0) 10/25/17 04:50 Neut # (Auto) 7.9 K/uL (1.8-7.0) H 10/25/17 04:50 Lymph # (Auto) 1.0 K/uL (1.0-4.3) 10/25/17 04:50 [place] # (Auto) 0.5 K/uL (0.0-0.8) 10/25/17 04:50 Eos # (Auto) 0.5 K/uL (0.0-0.7) 10/25/17 04:50 Baso # (Auto) 0.0 K/uL (0.0-0.2) 10/25/17 04:50 Total Counted Cancelled 10/20/17 04:20 Neutrophils % (Manual) 91 % (42-75) H 10/23/17 04:19 Band Neutrophils % 2 % (0-2) 10/16/17 04:50 Lymphocytes % (Manual) 5 % (20-50) L 10/23/17 04:19 Reactive Lymphs % Cancelled 10/20/17 04:20 Monocytes % (Manual) 3 % (0-10) 10/23/17 04:19 Eosinophils % (Manual) 1 % (0-7) 10/23/17 04:19 Basophils % (Manual) Cancelled 10/20/17 04:20 Metamyelocytes % Cancelled 10/20/17 04:20 Myelocytes % Cancelled 10/20/17 04:20 Promyelocytes % Cancelled 10/20/17 04:20 Blast Cells % Cancelled 10/20/17 04:20 Plasma Cell % (Manual) Cancelled 10/20/17 04:20 Nucleated RBC % Cancelled 10/20/17 04:20 Hypersegmented Polys Cancelled 10/20/17 04:20 Smudge Cells Cancelled 10/20/17 04:20 Toxic Granulation Present 10/23/17 04:19 Dohle Bodies Cancelled 10/20/17 04:20 Erlinda Rods Cancelled 10/20/17 04:20 Platelet Estimate Decreased (NORMAL) L 10/23/17 04:19 Plt Clumps, EDTA Cancelled 10/20/17 04:20 Large Platelets Present 10/18/17 04:20 Giant Platelets Present 10/16/17 04:50 RBC Morphology Cancelled 10/20/17 04:20 Polychromasia Cancelled 10/20/17 04:20 Hypochromasia (manual) Slight 10/23/17 04:19 Poikilocytosis (manual Slight 10/16/17 04:50 Basophilic Stippling Slight 10/23/17 04:19 Anisocytosis (manual) Slight 10/23/17 04:19 Microcytosis (manual) Cancelled 10/20/17 04:20 Macrocytosis (manual) Cancelled 10/20/17 04:20 Spherocytes Cancelled 10/20/17 04:20 Sickle Cells Cancelled 10/20/17 04:20 Target Cells Slight 10/18/17 04:20 Tear Drop Cells Slight 10/23/17 04:19 Ovalocytes Slight 10/23/17 04:19 Stomatocytes Cancelled 10/20/17 04:20 Helmet Cells Cancelled 10/20/17 04:20 Foy-Rimini Bodies Cancelled 10/20/17 04:20 Nicolasa Cells Slight 10/16/17 04:50 Acanthocytes (Spur) Cancelled 10/20/17 04:20 Rouleaux Cancelled 10/20/17 04:20 Schistocytes Slight 10/18/17 04:20 PT 16.2 Seconds (9.8-13.1) H 10/21/17 04:20 INR 1.5 (0.9-1.2) H 10/21/17 04:20 APTT 24.0 Seconds (25.6-37.1) L D 10/21/17 04:20 Fibrinogen 255 mg/dl (200-400) 10/21/17 04:20 D-Dimer, Quantitative 4154 ng/mlDDU (0-230) H 10/15/17 10:20 pCO2 43 mm/Hg (35-45) 10/26/17 04:58 pO2 136 mm/Hg (80-100) H 10/26/17 04:58 HCO3 28.5 mmol/L (21-28) H 10/26/17 04:58 ABG pH 7.44 (7.35-7.45) 10/26/17 04:58 ABG Total CO2 30.5 mmol/L (22-28) H 10/26/17 04:58 ABG O2 Saturation 99.8 % (95-98) H 10/26/17 04:58 ABG O2 Content 11.7 ML/dL (15-23) L 10/26/17 04:58 ABG Base Excess 4.6 mmol/L (-2.0-3.0) H 10/26/17 04:58 ABG Hemoglobin 8.4 g/dL (11.7-17.4) L 10/26/17 04:58 ABG Carboxyhemoglobin 1.6 % (0.5-1.5) H 10/26/17 04:58 POC ABG HHb (Measured) 0.2 % (0.0-5.0) 10/26/17 04:58 ABG Methemoglobin 1.5 % (0.0-3.0) 10/26/17 04:58 ABG O2 Capacity 11.7 mL/dL (16-24) L 10/26/17 04:58 Michael Test Yes 10/26/17 04:58 ABG Potassium 2.8 mmol/L (3.6-5.2) L 10/23/17 04:00 VBG pH 7.34 (7.32-7.43) 10/15/17 17:56 VBG pCO2 30 mmHg (40-60) L 10/15/17 17:56 VBG HCO3 17.5 mmol/L 10/15/17 17:56 VBG Total CO2 17.1 mmol/L (22-28) L 10/15/17 17:56 VBG O2 Sat (Calc) 75.8 % (40-65) H 10/15/17 17:56 VBG Base Excess -8.3 mmol/L (0.0-2.0) L 10/15/17 17:56 VBG Potassium 4.0 mmol/L (3.6-5.2) 10/15/17 17:56 A-a O2 Difference 238.0 mm/Hg 10/26/17 04:58 Hgb O2 Saturation 96.7 % (95.0-98.0) 10/26/17 04:58 Sodium 136.0 mmol/L (132-148) 10/23/17 04:00 Chloride 101.0 mmol/L (98-107) 10/23/17 04:00 Glucose 103 mg/dL (65-105) 10/23/17 04:00 Lactate 3.8 mmol/L (0.7-2.1) H 10/23/17 04:00 Vent Mode A/c 10/26/17 04:58 Mechanical Rate 14 10/26/17 04:58 FiO2 60.0 % 10/26/17 04:58 Tidal Volume 400 10/26/17 04:58 PEEP 10 10/26/17 04:58 Blood Gas Comments Lactate 4.6 10/15/17 17:56 Crit Value Called To Krystyna jiménez rn 10/16/17 04:19 Crit Value Called By 333 10/16/17 04:19 Crit Value Read Back Y 10/16/17 04:19 Blood Gas Notified Time 440 10/16/17 04:19 Sodium 136 mmol/l (132-148) 10/26/17 05:15 Potassium 3.4 MMOL/L (3.6-5.0) L 10/26/17 05:15 Chloride 98 mmol/L (98-107) 10/26/17 05:15 Carbon Dioxide 27 mmol/L (22-30) 10/26/17 05:15 Anion Gap 14 (10-20) 10/26/17 05:15 BUN 55 mg/dl (7-17) H 10/26/17 05:15 Creatinine 1.8 mg/dl (0.7-1.2) H 10/26/17 05:15 Est GFR ( Amer) 32 10/26/17 05:15 Est GFR (Non-Af Amer) 26 10/26/17 05:15 POC Glucose (mg/dL) 281 mg/dL (65-110) H 10/27/17 06:01 Random Glucose 225 mg/dL (65-105) H 10/26/17 05:15 Lactic Acid 4.8 MMOL/L (0.7-2.1) H* 10/15/17 15:05 Calcium 7.8 mg/dL (8.4-10.2) L 10/26/17 05:15 Phosphorus 8.4 mg/dl (2.5-4.5) H 10/19/17 04:30 Magnesium 2.0 MG/DL (1.6-2.3) 10/19/17 04:30 Total Bilirubin 1.4 mg/dl (0.2-1.3) H 10/24/17 05:28 AST 46 U/L (14-36) H D 10/24/17 05:28 ALT 44 U/L (9-52) 10/24/17 05:28 Alkaline Phosphatase 203 U/L (38-126) H 10/24/17 05:28 Troponin I 0.0900 ng/mL (0.00-0.120) 10/11/17 15:08 NT-Pro-B Natriuret Pep 90422 pg/ml (0-900) H 10/12/17 04:15 Total Protein 5.4 G/DL (6.3-8.2) L 10/24/17 05:28 Albumin 2.4 g/dL (3.5-5.0) L 10/24/17 05:28 Globulin 3.1 gm/dL (2.2-3.9) 10/24/17 05:28 Albumin/Globulin Ratio 0.8 (1.0-2.1) L 10/24/17 05:28 Procalcitonin 1.65 NG/ML (0.19-0.49) H 10/15/17 19:03 TSH 3rd Generation 1.10 mIU/ML (0.46-4.68) 10/11/17 02:05 Arterial Blood Potassium 2.8 mmol/L (3.6-5.2) L 10/23/17 04:00 Venous Blood Potassium 4.0 mmol/L (3.6-5.2) 10/15/17 17:56 Urine Color Yellow (YELLOW) 10/11/17 10:58 Urine Clarity Slighty-cloudy (Clear) 10/11/17 10:58 Urine pH 6.0 (5.0-8.0) 10/11/17 10:58 Ur Specific [place] 1.009 (1.003-1.030) 10/11/17 10:58 Urine Protein 30 mg/dL (NEGATIVE) 10/11/17 10:58 Urine Glucose (UA) 150 mg/dL (Normal) 10/11/17 10:58 Urine Ketones Negative mg/dL (NEGATIVE) 10/11/17 10:58 Urine Blood Small (NEGATIVE) 10/11/17 10:58 Urine Nitrate Negative (NEGATIVE) 10/11/17 10:58 Urine Bilirubin Negative (NEGATIVE) 10/11/17 10:58 Urine Urobilinogen 0.2-1.0 mg/dL (0.2-1.0) 10/11/17 10:58 Ur Leukocyte Esterase Neg J Carlos/uL (Negative) 10/11/17 10:58 Urine RBC (Auto) < 1 /hpf (0-3) 10/11/17 10:58 Urine Microscopic WBC 1 /hpf (0-5) 10/11/17 10:58 Ur Squamous Epith Cells < 1 /hpf (0-5) 10/11/17 10:58 Amorphous Sediment Rare /ul (<OCC) H 10/11/17 10:58 Urine Bacteria Rare (<OCC) 10/11/17 10:58 Granular Casts (Auto) 1 /lpf (0-1) 10/11/17 10:58 Urine Yeast (Budding) Few /hpf (NEGATIVE) H 10/07/17 04:00 Urine Osmolality 296 mosm/kg (300-1000) L 10/18/17 08:28 Ur Random Creatinine 54.8 mg/dL 10/18/17 08:28 Ur Random Sodium 8 mmol/L 10/18/17 08:28 Heparin-induced Plt Ab Positive (Negative) H 10/21/17 14:38 Hep Bs Antigen Negative (NEGATIVE) 10/20/17 06:38 Hep Bs Antibody Negative (NEGATIVE) 10/20/17 06:38 Hep B Core IgM Ab Negative (NEGATIVE) 10/20/17 06:38 Hepatitis C Antibody Negative (NEGATIVE) 10/21/17 14:38 Influenza Typ A,B (EIA) Pos for influenza a (NEGATIVE) H 10/07/17 01:27 Blood Type A POSITIVE 10/26/17 08:51 Blood Type Confirm A POSITIVE 10/20/17 23:58 Antibody Screen Negative 10/26/17 08:51 Crossmatch See Detail 10/26/17 08:51 BBK History Checked Patient has bt 10/26/17 08:51 Discharge Exam - Head Exam Head Exam: NORMAL INSPECTION Discharge Plan - Follow Up Plan Condition: SERIOUS Disposition: WITH WITHOUT AUTOPSY
== END 2017-10-27 12:36 | DRG 870 ==
LOC: EDBD 23:28 → H.ER 23:28 → H.ERHOLD 10-07 02:12 → H.ICU/CCU 10-07 10:05 → H.TEL 10-10 18:03 → H.ICU/CCU 10-11 16:59
PROVIDERS: ADMIT Internal Medicine; ATTEND Internal Medicine
PROC: 5A1955Z Respiratory Ventilation, Greater than 96 Consecutive Hours (ICD-10-PCS; 2017-10-12)
PROC: 0BH17EZ Insertion of Endotracheal Airway into Trachea, Via Natural or Artificial Opening (ICD-10-PCS; 2017-10-12)
PROC: 0B9B8ZX Drainage of Left Lower Lobe Bronchus, Via Natural or Artificial Opening Endoscopic, Diagnostic (ICD-10-PCS; principal; 2017-10-15)
PROC: 06HM33Z Insertion of Infusion Device into Right Femoral Vein, Percutaneous Approach (ICD-10-PCS; 2017-10-15)
PROC: 0B968ZX Drainage of Right Lower Lobe Bronchus, Via Natural or Artificial Opening Endoscopic, Diagnostic (ICD-10-PCS; 2017-10-15)
PROC: 06HN33Z Insertion of Infusion Device into Left Femoral Vein, Percutaneous Approach (ICD-10-PCS; 2017-10-19)
PROC: 5A1D70Z Performance of Urinary Filtration, Intermittent, Less than 6 Hours Per Day (ICD-10-PCS; 2017-10-20)
PROC: 30233K1 Transfusion of Nonautologous Frozen Plasma into Peripheral Vein, Percutaneous Approach (ICD-10-PCS; 2017-10-20)
PROC: 6A551Z2 Pheresis of Platelets, Multiple (ICD-10-PCS; 2017-10-20)
DX: A41.9 Sepsis, unspecified organism (principal); J96.01 Acute respiratory failure with hypoxia; N17.0 Acute kidney failure with tubular necrosis; R65.21 Severe sepsis with septic shock; J15.9 Unspecified bacterial pneumonia; J10.08 Influenza due to other identified influenza virus with other specified pneumonia; G93.41 Metabolic encephalopathy; K83.1 Obstruction of bile duct; D69.59 Other secondary thrombocytopenia; N39.0 Urinary tract infection, site not specified; E11.22 Type 2 diabetes mellitus with diabetic chronic kidney disease; E11.649 Type 2 diabetes mellitus with hypoglycemia without coma; D63.8 Anemia in other chronic diseases classified elsewhere; E78.00 Pure hypercholesterolemia, unspecified; E78.5 Hyperlipidemia, unspecified; Z66 Do not resuscitate; T45.515A Adverse effect of anticoagulants, initial encounter; B96.1 Klebsiella pneumoniae [K. pneumoniae] as the cause of diseases classified elsewhere; E87.6 Hypokalemia; I12.9 Hypertensive chronic kidney disease with stage 1 through stage 4 chronic kidney disease, or unspecified chronic kidney disease; N18.9 Chronic kidney disease, unspecified; E03.9 Hypothyroidism, unspecified; E87.5 Hyperkalemia; K59.00 Constipation, unspecified; E11.65 Type 2 diabetes mellitus with hyperglycemia; E87.70 Fluid overload, unspecified; I48.0 Paroxysmal atrial fibrillation; E83.39 Other disorders of phosphorus metabolism; Z51.5 Encounter for palliative care